=== PATIENT | male | born 1940 | race Caucasian/White ===

== ENCOUNTER 2017-02-06 09:34 | Inpatient (IN) | payer MEDICARE, OTHER ==
[~2017-02-06] VITALS: Ht 165.1 cm; Wt 66.7 kg
[~2017-02-06 09:34] MED LIST: APRESOLINE50 MG ORAL; CALCIUM + D SO1 EACH PO; DAILY MULTIPLE1 EACH ORAL; DONEPEZIL HCL10 M2 ORAL; FUROSEMIDE20 M1 ORAL; FUROSEMIDE20 MG IV; FUROSEMIDE40 MG ORAL; HUMULIN 70100 UNIT/2 SUBQ; LEVOTHYROXINE50 MCG ORAL; LEXAPRO10 MG ORAL; LOSARTAN POTASS50 MG ORAL; METFORMIN HCL850 M1 ORAL; METOPROLOL TART50 MG ORAL; ZOCOR20 M1 ORAL
[2017-02-06 12:48] VITALS: BP 150/69
[2017-02-06 16:02] VITALS: BP 155/86
--- NOTE | 2017-02-06 16:52 | History & Physical ---
History and Physical History & Physicial 74 year old male patient presents today with significant weight loss over the past 3 months. Patient care reviewed and patient felt to require admission. Patient with recent visit to the office and was doing well per but most recently he has not been eating, falling, and has had poor hygiene. Daughter notes that he has been failing to thrive and weight has decreased substantially. Per discussion with the family, they would like a GT and feel they can care for him at home. no fevers or chills noted Current Allergies/medications (reviewed today): No known allergies; reviewed Past History Past Medical History (reviewed - no changes required): Patient indicates medical history of hypertension, hyperlipidemia, type II diabetes. Other medical history includes: Obstructive Sleep Apnea, Cellulitis, CVA. Dementia. Cellulitis legs. Dementia (2009). Hypersomnia; urinary incontinence Carotid artery stenosis-bilateral, Atrial fibrillation, Pacemaker 07/2014 ER-minor stroke Surgical History (reviewed - no changes required): no previous surgeries Family History (reviewed - no changes required): Both parents and were healthy when alive. Social History (reviewed - no changes required): MARCELO is a retired person. MARCELO lives with his daughter. He lives at home in [place]. Additional social history reported by MARCELO is: was born in [place]. Risk Factors: Smoked Tobacco Use: Former smoker Cigarettes: Yes Year quit: 1991 Years Since Last Quit: Passive smoke exposure: no HIV high-risk behavior: no Caffeine use: 1 drinks per day Alcohol use: no Sun Exposure: occasionally Review of Systems General: more confused; significant weight loss Eyes: vision change; wears glasses, redness, discharge right eye; blurred vision Ear/Nose/Throat: denies ear pain or discharge, tinnitus, decreased hearing, nasal obstruction or discharge, nosebleeds, sore throat, hoarseness, dysphagia Cardiovascular: occasional dizziness and palpitations, pacemaker, abnormal ECG Respiratory: Denies cough, dyspnea, excessive sputum, hemoptysis, wheezing Gastrointestinal: constipation and incontinence Genitourinary: hesitancy; incontinence worse Musculoskeletal: arthritis, unsteady gait, uses cane had a fall Skin: denies rash, itching, dryness, suspicious lesions Neurologic: dizziness at times tremor Psychiatric: memory loss, depression;severe dementia Endocrine: blood sugars stable Hematologic/Lymphatic: denies abnormal bruising, bleeding, enlarged lymph nodes Allergic/Immunologic: denies urticaria, hay fever, persistent infections, HIV exposure Physical Exam 114/50 84 98.2 16 98% General Appearance: well nourished, well hydrated, no acute distress EOMI; NAD oropharynx moist neck supple Carotids 2+; no meningismus Respiratory Respiratory Effort: no intercostal retractions or use of accessory muscles Palpation: normal fremitus Auscultation: no rales, rhonchi, or wheezes Cardiovascular Palpation: no thrill or palpable murmurs, no displacement of PMI Auscultation: S1, S2, no murmur, rub, or gallop; iRRR Carotid arteries: pulses 2+, symmetric, no bruits Peripheral Circulation: no cyanosis, clubbing, or varicosities; 1+ pitting Edema Musculoskeletal Gait and Station: shuffling has cane confused and very unsteady nonfocal IMPRESSION failure to thrive weight loss worsening dementia PAF pacemaker syncope per history abnormal ECG PLAN IV hydration resume meds GT placement pacemaker check home with home health and GT feeds NATASHA REARDON Feb 06, 2017 16:52
[2017-02-06 17:50] LABS: BASOPHILS % (AUTO) 0.2 % (0.0-2.0); EOSINOPHILS % (AUTO) 0.1 % (0.0-3.0); LYMPHOCYTES % (AUTO) 13.1 % (20.0-45.0); MEAN CORPUSCULAR HEMOGLOBIN 30.7 PG (27.0-31.0); MEAN CORPUSCULAR HGB CONC 32.8 G/DL (32.0-36.0); MEAN CORPUSCULAR VOLUME 94 FL (80-99); MEAN PLATELET VOLUME 6.4 FL (6.5-10.1); MONOCYTES % (AUTO) 5.4 % (1.0-10.0); NEUTROPHILS % (AUTO) 81.3 % (45.0-75.0); PLATELET COUNT 412 K/UL (150-450); RED BLOOD COUNT 4.14 M/UL (4.70-6.10); RED CELL DISTRIBUTION WIDTH 13.4 % (11.6-14.8); WHITE BLOOD COUNT 10.1 K/UL (4.8-10.8)
[2017-02-06] MEDS ORDERED: Benzonatate 100mg Perles ORAL PRN (18:00)
[2017-02-06 18:08] LABS: PROTHROMBIN TIME 10.7 SEC (9.30-11.50)
[2017-02-06 18:14] LABS: ANION GAP 12 mmol/L (5-15); CALCIUM 8.7 MG/DL (8.5-10.1); CARBON DIOXIDE 29 MMOL/L (21-32); CHLORIDE 99 MMOL/L (98-107); CREATININE 1.4 MG/DL (0.55-1.30); POTASSIUM 3.6 MMOL/L (3.5-5.1); SODIUM 140 MMOL/L (136-145)
[2017-02-06] MEDS: Vitamin D 1000 IU Tab ORAL SCH (18:41)
[2017-02-06] MEDS: Metoprolol Tartrate 50mg tab ORAL SCH (20:05)
[2017-02-06] MEDS: Donepezil 10mg tab ORAL SCH (20:05)
[2017-02-06] MEDS: HydrALAZINE 50mg tab ORAL SCH (20:05)
[2017-02-06 21:00] VITALS: BP 151/59
[2017-02-06] MEDS ORDERED: NovoLOG Insulin Flexpen SUBQ SCH (21:00)
[2017-02-07] VITALS: BP 139/75
[2017-02-07 04:00] VITALS: BP 114/68
--- NOTE | 2017-02-07 05:00 | Consultation ---
DATE OF CONSULTATION: 02/06/2017 CARDIOLOGY CONSULTATION CONSULTING PHYSICIAN: Marcellus Richards M.D. REQUESTING PHYSICIAN: Dustin Mary M.D. REASON FOR CONSULTATION: Preoperative cardiovascular evaluation for G-tube placement. 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 The patient was admitted to the hospital today because of failure to thrive with weight loss and declining protein stores over the past several months resulting in recurring falls and worsening dementia. G-tube placement is planned for adequate nutrition. Family members have been involved with his care. ALLERGIES: The patient has no known drug allergies. PAST MEDICAL HISTORY: Includes paroxysmal atrial fibrillation, permanent [place] pacemaker, hypertensive heart disease, chronic diastolic and systolic congestive heart failure, type 2 diabetes mellitus, hyperlipidemia, cerebrovascular disease with dementia, sleep apnea, chronic venous insufficiency, chronic stasis ulcers, urinary incontinence, carotid stenosis bilaterally, and COPD. MEDICATIONS: Prior to admission, reviewed and reconciled. FAMILY HISTORY: Noncontributory. SOCIAL HISTORY: Former smoker. No alcohol abuse. No substance abuse. REVIEW OF SYSTEMS: Weight loss, confusion, poor vision, hard of hearing. Recent echocardiogram with mildly reduced ejection fraction, global hypokinesis, mild tricuspid and trace mitral regurgitation. No history of flow-limiting coronary disease. He has a permanent pacemaker. It was last interrogated about six months ago. He is incontinent. He has prostatic hypertrophy. He has osteoarthritis. There is a history of cerebrovascular disease, prior stroke, and dementia. His diabetes is managed with oral therapy and diet. Complications include gastroparesis and chronic kidney disease. PHYSICAL EXAMINATION: VITAL SIGNS: Blood pressure 150/69, pulse 86, respirations 21, afebrile, and room air oxygen saturations are 97%. HEENT: Mild temporal wasting. Arcus senilis. Oropharynx clear. Mucous membranes dry. NECK: Supple. Jugular venous pressure normal. Carotid upstrokes without delay. No bruits. LUNGS: Clear. Chest wall without deformity. CARDIAC: Regular rhythm and rate. Normal S1 and S2 with a 1/6 systolic murmur at apex. CHEST WALL: With pacemaker pocket site clean and dry. ABDOMEN: Soft and nontender with no masses. EXTREMITIES: Stasis dermatologic changes with no edema. NEUROLOGIC: Mild cognitive impairment. Symmetric strength. LABORATORY AND DIAGNOSTIC DATA: White count 10 and hemoglobin 12.7. Sodium 140, potassium 3.6, BUN 31, creatinine 1.4, and bicarbonate 29. EKG is pending. IMPRESSION: 1. Failure to thrive. 2. Dysphagia. 3. Permanent pacemaker. 4. Chronic diastolic and systolic congestive heart failure. 5. Hypothyroidism on replacement therapy. 6. Mild hypovolemia and dehydration with acute kidney injury. 7. Type 2 diabetes mellitus with complications. 8. Paroxysmal atrial fibrillation. PLAN: 1. Hydration with IV fluids. 2. Hold diuretics. 3. Hold metformin. 4. Check thyroid panel. 5. Hold parameters for antihypertensives. 6. No plan for anticoagulation due to fall and bleeding risks. 7. Stable for PEG once rehydrated with no significant increase in perioperative cardiovascular risks. Marcellus Richards M.D. DR: HUNG JOB#: [id number] CC:
[2017-02-07] MEDS: NovoLOG Insulin Flexpen SUBQ SCH ×4 (06:29→21:45)
[2017-02-07 06:58] LABS: ALANINE AMINOTRANSFERASE 26 U/L (12-78); ALBUMIN/GLOBULIN RATIO 0.5 (1.0-2.7); ANION GAP 12 mmol/L (5-15); ASPARTATE AMINO TRANSFERASE 22 U/L (15-37); CALCIUM 8.4 MG/DL (8.5-10.1); CARBON DIOXIDE 28 MMOL/L (21-32); CHLORIDE 100 MMOL/L (98-107); CREATININE 1.2 MG/DL (0.55-1.30); POTASSIUM 3.6 MMOL/L (3.5-5.1); SODIUM 140 MMOL/L (136-145); THYROID STIMULATING HORMONE 2.443 uiU/mL (0.358-3.740); TOTAL PROTEIN 6.5 G/DL (6.4-8.2)
--- NOTE | 2017-02-07 07:40 | General Progress Note ---
Assessment/Plan Assessment/Plan IMPRESSION failure to thrive weight loss worsening dementia PAF pacemaker syncope per history abnormal ECG PLAN IV hydration maintain meds GT placement pacemaker check home with home health and GT feeds hope to dc by am if family able to care for patient impression, plan, and exam edited and reviewed in detail care discussed with RN Subjective Allergies: Coded Allergies: No Known Allergies (Verified , 06/07/08) Subjective care noted and reviewed stable over night gi contacted Objective Last 24 Hour Vital Signs Date Time Temp Pulse Resp B/P (MAP) Pulse Ox O2 Delivery O2 Flow Rate FiO2 02/07/17 04:00 96.6 63 18 114/68 99 02/07/17 00:00 97.0 64 21 139/75 100 02/06/17 21:00 98.9 60 21 151/59 100 02/06/17 20:05 84 159/66 02/06/17 20:05 159/66 02/06/17 16:02 97.3 72 19 155/86 97 Room Air 02/06/17 12:48 97.6 86 21 150/69 97 Room Air Laboratory Tests 02/06/17 17:46: White Blood Count 10.1, Red Blood Count 4.14L, Hemoglobin 12.7L, Hematocrit 38.9L, Mean Corpuscular Volume 94, Mean Corpuscular Hemoglobin 30.7, Mean Corpuscular Hemoglobin Concent 32.8, Red Cell Distribution Width 13.4, Platelet Count 412, Mean Platelet Volume 6.4L, Neutrophils (%) (Auto) 81.3H, Lymphocytes (%) (Auto) 13.1L, Monocytes (%) (Auto) 5.4, Eosinophils (%) (Auto) 0.1, Basophils (%) (Auto) 0.2, Prothrombin Time 10.7, Prothromb Time International Ratio 1.0, Activated Partial Thromboplast Time 29, Sodium Level 140, Potassium Level 3.6, Chloride Level 99, Carbon Dioxide Level 29, Anion Gap 12, Blood Urea Nitrogen 31H, Creatinine 1.4H, Estimat Glomerular Filtration Rate , Glucose Level 165H, Calcium Level 8.7 02/07/17 05:45: Sodium Level 140, Potassium Level 3.6, Chloride Level 100, Carbon Dioxide Level 28, Anion Gap 12, Blood Urea Nitrogen 27H, Creatinine 1.2, Estimat Glomerular Filtration Rate , Glucose Level 131H, Calcium Level 8.4L, Hemoglobin A1c 7.0H, Total Bilirubin 0.6, Aspartate Amino Transf (AST/SGOT) 22, Alanine Aminotransferase (ALT/SGPT) 26, Alkaline Phosphatase 213H, Pro-B-Type Natriuretic Peptide 1024H, Total Protein 6.5, Albumin 2.1L, Globulin 4.4, Albumin/Globulin Ratio 0.5L, Thyroid Stimulating Hormone (TSH) 2.443 Height (Feet): 5 Height (Inches): 7.00 Weight (Pounds): 147 Objective WDWN NAD clear breath sounds bilaterally without rhonchi or wheeze [id number] without MRG NABS nontender no HSM no CCE nonfocal NATASHA REARDON Feb 07, 2017 07:40
[2017-02-07 07:47] VITALS: BP 136/60
[2017-02-07] MEDS: Losartan 50mg tab ORAL SCH (08:37)
[2017-02-07] MEDS: HydrALAZINE 50mg tab ORAL SCH ×2 (08:37→21:46)
[2017-02-07] MEDS: Vitamin D 1000 IU Tab ORAL SCH ×2 (08:37→17:49)
[2017-02-07] MEDS: EXELON TDERMAL SCH (08:37)
[2017-02-07] MEDS: Metoprolol Tartrate 50mg tab ORAL SCH ×2 (08:38→21:46)
[2017-02-07] MEDS ORDERED: Furosemide 40mg tab ORAL SCH (09:00)
[2017-02-07 12:04] VITALS: BP 98/41
--- NOTE | 2017-02-07 14:40 | Wound Care Consultation ---
Wound Assessment Wound Assessment #1: Wound Number: 1 Wound Present on Admission: Yes New Wound: No Status Change of Wound: No Wound Location Body Site Modif: right, lateral Wound Location Body Site: foot - extending to 5th metatarsal head Wound Type: pressure ulcer Monica Test: Does not Monica Pressure Ulcer Stage: Deep Tissue Injury - suspected Percent of Wound [place]/Red: 100 - deep red Wound Drainage Amount: None Wound Drainage Odor: None/Absent Tissue Surrounding Wound: Erythemic Wound General Appearance: Reddened Wound Assessment #2: Wound Number: 2 Wound Present on Admission: Yes New Wound: No Status Change of Wound: No Wound Location Body Site Modif: right, lower, lateral Wound Location Body Site: leg Wound Type: scab Monica Test: Does not Monica Wound Thickness: Full Thickness Wound Length: 4.0 Wound Width: 3.0 Wound Depth: utd Percent of Wound Black/Brown: 100 Wound Drainage Amount: None Wound Drainage Odor: None/Absent Tissue Surrounding Wound: Erythemic Wound General Appearance: Blackened - scab Wound Comment #1 Right lateral foot extending to right 5th toe metatarsal head suspected Deep tissue injury. #2 Right lateral lower leg scab. #3 Right ischial tuberosity and sacral hyperpigmentation brown in color. Recommendation. -Local wound care as ordered. -Turn and reposition. -Offload affected areas -Apply heel protectors, offload feet. -Keep clean and dry. -Optimize nutrition -Monitor for any further changes to skin and notify MD if any. EVELYN SANTIAGO Feb 07, 2017 14:40
[2017-02-07 16:00] VITALS: BP 113/51
[2017-02-07 20:00] VITALS: BP 122/58
[2017-02-07] MEDS: Donepezil 10mg tab ORAL SCH (21:46)
[2017-02-08] VITALS (12 sets, daily range): BP systolic 108–158; BP diastolic 52–71
--- NOTE | 2017-02-08 00:30 | Progress Note ---
DATE: 02/07/2017 CARDIOLOGY PROGRESS NOTE SUBJECTIVE: The patient has poor appetite, continues to be weak, confused. OBJECTIVE: VITAL SIGNS: Blood pressure 114/68, pulse 53, respirations 18, and afebrile. CARDIAC: Pacemaker interrogation was performed revealing normal function and adequate battery life. IMPRESSION: 1. Failure to thrive. 2. Protein-calorie malnutrition. 3. Paroxysmal atrial fibrillation. 4. Permanent pacemaker. 5. Cerebrovascular disease with dementia. 6. Acute and chronic systolic and diastolic congestive heart failure. PLAN: Decrease IV fluid rate. Await G-tube placement. Maintain remainder of anti-failure regimen without change. Marcellus Richards M.D. DR: ZENA JOB#: [id number] CC:
--- NOTE | 2017-02-08 01:15 | Consultation ---
DATE OF CONSULTATION: 02/07/2017 GASTROENTEROLOGY CONSULTATION CHIEF COMPLAINT: I was asked to see this patient by Dr. Dustin Mary for evaluation of gastrostomy tube placement. HISTORY OF PRESENT ILLNESS: The patient is an unfortunate 76-year-old man, who has had a progressive weight loss over the past three months. The patient has Alzheimer's dementia, which has been slowly getting worse. His care was discussed with the daughter, who is at bedside. She states that over the past several years, the patient has been diagnosed with Alzheimer's and over the past year or so, it has been harder and harder to feed him. He only eats when fed by one daughter and he refuses to eat if offered food from other family members including his . Still, the daughter tries hard and is able to feed the patient to a certain extent, but nonetheless, the patient has had a 20-pound weight loss over the past few months. He does not voice any complaints. There is no focal findings. The daughter wishes the patient have a gastrostomy tube for nutritional support. She understands that she can still feed the patient during daytime, but that the gastrostomy tube would maintain enteral access for supplemental nutrition to be given overnight. PAST MEDICAL HISTORY: History of hypertension, hyperlipidemia, type 2 diabetes, obstructive sleep apnea, cellulitis, stroke, dementia, and history of leg cellulitis. MEDICATIONS: See the chart list for details. FAMILY HISTORY: Noncontributory. SOCIAL HISTORY: The patient lives with his and his daughter. He was born in [facility]. He has had no recent history of smoking or drinking. REVIEW OF SYSTEMS: Otherwise negative. PHYSICAL EXAMINATION: GENERAL: An elderly man, seen in his room with the daughter at bedside. HEENT: Normocephalic and atraumatic. Sclerae anicteric. Oropharynx clear. NECK: Supple. CHEST: Clear to auscultation. CARDIOVASCULAR: Revealed a regular rate. ABDOMEN: Soft and obese with good bowel sounds. There is no organomegaly. EXTREMITIES: Revealed no edema. NEUROLOGIC: Notable for dementia. LABORATORY DATA: Noted. ASSESSMENT: This patient has organic brain syndrome, which is progressive with progressive anorexia and weight loss. There does not appear to be a focal abnormality or pathology, which could explain his weight loss, although this may be discovered at some point in the future. For the time being, however, the patient's family requests a gastrostomy tube for enteral access and feeding to help support the patient's nutritional needs so that he does not lose any further weight. Indications, risks, alternatives, and possible complications of the gastrostomy tube placement were explained to the patient's daughter and informed consent was obtained. RECOMMENDATIONS: 1. NPO after midnight. 2. Gastrostomy tube placement tomorrow. Thank you for asking me to participate in the care of this patient. Anastacia Tracey M.D. DR: AICHA JOB#: [id number] CC:
[2017-02-08] MEDS: NovoLOG Insulin Flexpen SUBQ SCH ×4 (06:30→21:52)
[2017-02-08] MEDS ORDERED: Lidocaine 1% MPF 10mg/ml 5ml ONE (08:00)
[2017-02-08] MEDS ORDERED: Propofol 200mg/20ml IV ONE (08:00)
--- NOTE | 2017-02-08 08:03 | General Progress Note ---
Assessment/Plan Assessment/Plan IMPRESSION failure to thrive weight loss worsening dementia PAF pacemaker syncope per history abnormal ECG PLAN IV hydration maintain meds GT placement today pacemaker monitoring home with home health and GT feeds hope to dc by am if family able to care for patient and GT functional impression, plan, and exam edited and reviewed in detail care discussed with RN Subjective ROS Limited/Unobtainable: Yes Allergies: Coded Allergies: No Known Allergies (Verified , 06/07/08) Subjective care noted and reviewed stable over night GT today Objective Last 24 Hour Vital Signs Date Time Temp Pulse Resp B/P (MAP) Pulse Ox O2 Delivery O2 Flow Rate FiO2 02/08/17 04:00 97.7 66 18 120/68 98 02/08/17 00:00 97.5 68 21 108/71 97 02/07/17 21:46 75 122/58 02/07/17 21:46 122/58 02/07/17 20:00 97.7 75 21 122/58 100 02/07/17 16:00 97.2 80 18 113/51 93 Room Air 02/07/17 12:04 97.7 62 20 98/41 99 Room Air 02/07/17 08:38 62 136/60 02/07/17 08:37 136/60 02/07/17 08:37 136/60 Height (Feet): 5 Height (Inches): 5.00 Weight (Pounds): 147 Objective WDWN NAD clear breath sounds bilaterally without rhonchi or wheeze [id number] without MRG NABS nontender no HSM no CCE nonfocal NATASHA REARDON Feb 08, 2017 08:03
[2017-02-08] MEDS ORDERED: NS 500ML IV ONE (08:05)
--- NOTE | 2017-02-08 08:17 | Pre-Procedure Note/Attestation ---
Pre-Procedure Note/Attestation Complete Prior to Procedure Planned Procedure: not applicable Procedure Narrative: EGD/PEG Indications for Procedure Pre-Operative Diagnosis: anorexia Attestation I attest that I discussed the nature of the procedure; its benefits; risks and complications; and alternatives (and the risks and benefits of such alternatives ), prior to the procedure, with the patient (or the patient's legal sales representative girls[employer] apparel). I attest that, if there was a reasonable possibility of needing a blood transfusion, the patient (or the patient's legal sales representative girls' apparel) was given the [facility] standardized written summary, pursuant to the Grzegorz Nunica Blood Safety Act ([place] Health and Safety Code # 1645, as amended). I attest that I re-evaluated the patient just prior to the surgery and that there has been no change in the patient's H&P, except as documented below: KULDIP TOBIN Feb 08, 2017 08:17
--- NOTE | 2017-02-08 08:21 | General Progress Note ---
Assessment/Plan Assessment/Plan Assessment - mild abnormal LFT - anorexia - OBS - DM - HTN - MARCELLE - hypercholesterolemia Recommendations - check abd ultrasound - follow LFT - PEG today Subjective Allergies: Coded Allergies: No Known Allergies (Verified , 06/07/08) Subjective No events overnight confused but responsive NPO for PEG Objective Last 24 Hour Vital Signs Date Time Temp Pulse Resp B/P (MAP) Pulse Ox O2 Delivery O2 Flow Rate FiO2 02/08/17 04:00 97.7 66 18 120/68 98 02/08/17 00:00 97.5 68 21 108/71 97 02/07/17 21:46 75 122/58 02/07/17 21:46 122/58 02/07/17 20:00 97.7 75 21 122/58 100 02/07/17 16:00 97.2 80 18 113/51 93 Room Air 02/07/17 12:04 97.7 62 20 98/41 99 Room Air 02/07/17 08:38 62 136/60 02/07/17 08:37 136/60 02/07/17 08:37 136/60 Height (Feet): 5 Height (Inches): 5.00 Weight (Pounds): 147 Objective WDWN L man NCAT supple CTA RRR soft NT no edema non focal KULDIP TOBIN Feb 08, 2017 08:21
--- NOTE | 2017-02-08 08:34 | Endoscopy Procedure Note ---
Endoscopy Procedure Note Indication for Procedure: anorexia, weight loss Procedures Performed: EGD, PEG Operative Findings/Diagnosis: normal EGD, PEG placed Specimen: none Pt Tolerated Procedure Well: Yes Estimated Blood Loss: none Anesthesiologist: Bipin Farfan Anesthesia: MAC Medication Given: fentanyl, see anesthesia record Implant(s) used?: No 50 yrs or older w/o bx or poly: Not Applicable 10yrs. F/U not recommended: Not Applicable If not recommended, why?: KULDIP TOBIN Feb 08, 2017 08:34
--- NOTE | 2017-02-08 08:36 | Brief Operative Note ---
Immediate Post Operative Note Operative Note Chief Complaint: anorexia Pre-op Diagnosis: anorexia Procedure: EGD / PEG Post-op Diagnosis: s/p PEG Surgeon: Alexy Anesthesiologist: Rui Farfan Anesthesia: MAC Specimen: none Complications: none Condition: stable Fluids: see record Estimated Blood Loss: none Drains: hemovac Implant(s) used?: No KULDIP TOBIN Feb 08, 2017 08:36
[2017-02-08] MEDS ORDERED: ceFAZolin sod 1 GM in D5W 55 ML IVPB ONE (09:00)
[2017-02-08] MEDS: EXELON TDERMAL SCH (09:31)
[2017-02-08] MEDS: Metoprolol Tartrate 50mg tab ORAL SCH ×2 (09:32→21:34)
[2017-02-08] MEDS: Vitamin D 1000 IU Tab ORAL SCH ×2 (09:32→17:09)
[2017-02-08] MEDS: HydrALAZINE 50mg tab ORAL SCH ×2 (09:32→21:35)
[2017-02-08] MEDS: Losartan 50mg tab ORAL SCH (09:33)
--- NOTE | 2017-02-08 10:14 | Anethesia Preoperative Eval ---
Anesthesia Pre-op PMH/ROS General Date of Evaluation: Feb 08, 2017 Time of Evaluation: 08:01 Anesthesiologist: piyush ASA Score: ASA 4 Mallampati Score Class I : Soft palate, uvula, fauces, pillars visible Class II: Soft palate, uvula, fauces visible Class III: Soft palate, base of uvula visible Class IV: Only hard plate visible Mallampati Classification: Class II Surgeon: carmelo Diagnosis: anorexia, dysphagia Surgical Procedure: egd/peg Anesthesia History: none Social History: smoking - nonsmoker Family History: no anesthesia problems Allergies: Coded Allergies: No Known Allergies (Verified , 06/07/08) Medications: see eMAR Past Medical History Cardiovascular: Reports: arrhythmia, other - chf, pacemaker Neurologic/Psychiatric: Reports: CVA Anesthesia Pre-op Phys. Exam Physician Exam Last Vital Signs Date Time Temp Pulse Resp B/P (MAP) Pulse Ox O2 Delivery O2 Flow Rate FiO2 02/08/17 09:33 158/64 02/08/17 09:32 67 02/08/17 09:10 98.0 15 99 Nasal Cannula 3.0 Constitutional: NAD Neurologic: CN 2-12 intact Cardiovascular: RRR Respiratory: CTA Gastrointestinal: S/NT/ND Airway Exam Mallampati Score: Class II MO: full Neck: decreased rom to lateral rotation TMD: 2fb ROM: limited Teeth: missing Dentures: upper, lower Anesthesia Pre-op A/P Labs Labs Test 02/06/17 17:46 02/07/17 05:45 White Blood Count 10.1 K/UL (4.8-10.8) Red Blood Count 4.14 M/UL (4.70-6.10) Hemoglobin 12.7 G/DL (14.2-18.0) Hematocrit 38.9 % (42.0-52.0) Mean Corpuscular Volume 94 FL (80-99) Mean Corpuscular Hemoglobin 30.7 PG (27.0-31.0) Mean Corpuscular Hemoglobin Concent 32.8 G/DL (32.0-36.0) Red Cell Distribution Width 13.4 % (11.6-14.8) Platelet Count 412 K/UL (150-450) Mean Platelet Volume 6.4 FL (6.5-10.1) Neutrophils (%) (Auto) 81.3 % (45.0-75.0) Lymphocytes (%) (Auto) 13.1 % (20.0-45.0) Monocytes (%) (Auto) 5.4 % (1.0-10.0) Eosinophils (%) (Auto) 0.1 % (0.0-3.0) Basophils (%) (Auto) 0.2 % (0.0-2.0) Prothrombin Time 10.7 SEC (9.30-11.50) Prothromb Time International Ratio 1.0 (0.9-1.1) Activated Partial Thromboplast Time 29 SEC (23-33) Sodium Level 140 MMOL/L (136-145) 140 MMOL/L (136-145) Potassium Level 3.6 MMOL/L (3.5-5.1) 3.6 MMOL/L (3.5-5.1) Chloride Level 99 MMOL/L (98-107) 100 MMOL/L (98-107) Carbon Dioxide Level 29 MMOL/L (21-32) 28 MMOL/L (21-32) Anion Gap 12 mmol/L (5-15) 12 mmol/L (5-15) Blood Urea Nitrogen 31 mg/dL (7-18) 27 mg/dL (7-18) Creatinine 1.4 MG/DL (0.55-1.30) 1.2 MG/DL (0.55-1.30) Estimat Glomerular Filtration Rate mL/min (>60) mL/min (>60) Glucose Level 165 MG/DL (74-106) 131 MG/DL (74-106) Calcium Level 8.7 MG/DL (8.5-10.1) 8.4 MG/DL (8.5-10.1) Hemoglobin A1c 7.0 % (4.3-6.0) Total Bilirubin 0.6 MG/DL (0.2-1.0) Aspartate Amino Transf (AST/SGOT) 22 U/L (15-37) Alanine Aminotransferase (ALT/SGPT) 26 U/L (12-78) Alkaline Phosphatase 213 U/L (46-116) Pro-B-Type Natriuretic Peptide 1024 pg/mL (0-125) Total Protein 6.5 G/DL (6.4-8.2) Albumin 2.1 G/DL (3.4-5.0) Globulin 4.4 g/dL Albumin/Globulin Ratio 0.5 (1.0-2.7) Thyroid Stimulating Hormone (TSH) 2.443 uiU/mL (0.358-3.740) Risk Assessment & Plan Assessment: asa4 Plan: mac Status Change Before Surgery: No Pre-Antibiotics Drug: ancef 1 gm Given Within 1 Hr of Incision: Yes Time Given: 08:25 EV GILL Feb 08, 2017 10:14
--- NOTE | 2017-02-08 10:17 | Immediate Post-Op Evaluation ---
Immediate Post-Op Evalulation Immediate Post-Op Evalulation Procedure: egd/peg Date of Evaluation: Feb 08, 2017 Time of Evaluation: 08:51 IV Fluids: 50ml 0.9ns Blood Products: none Estimated Blood Loss: negligible Blood Pressure Systolic: 115 Blood Pressure Diastolic: 52 Pulse Rate: 67 Respiratory Rate: 18 O2 Sat by Pulse Oximetry: 99 Temperature (Fahrenheit): 97.9 Pain Score (1-10): 0 Nausea: No Vomiting: No Complications none Patient Status: reacts, patent Hydration Status: adequate Drug: ancef 1 gm Time Given: 08:25 EV GILL Feb 08, 2017 10:17
--- NOTE | 2017-02-08 10:20 | 48 Hour Post Anesthesia Eval ---
Post Anesthesia Evaluation Procedure: egd/peg Date of Evaluation: Feb 08, 2017 Time of Evaluation: 08:53 Blood Pressure Systolic: 111 0: 55 Pulse Rate: 66 Respiratory Rate: 18 Temperature (Fahrenheit): 97.9 O2 Sat by Pulse Oximetry: 99 Airway: patent Nausea: No Vomiting: No Pain Intensity: 0 Hydration Status: adequate Cardiopulmonary Status: stable Mental Status/LOC: patient returned to baseline Post-Anesthesia Complications: none Follow-up care needed: N/A EV GILL Feb 08, 2017 10:20
[2017-02-08] MEDS ORDERED: DiphenhydrAMINE 50mg/ml Inj IVP PRN (10:30)
[2017-02-08] MEDS ORDERED: Midazolam 2mg/2ml Inj IVP PRN (10:30)
[2017-02-08] MEDS ORDERED: fentaNYL 100 mcg/2 mL IV PRN (10:30)
[2017-02-08] MEDS ORDERED: Atropine Inj 1mg/10ml Syr IV PRN (10:30)
[2017-02-08] MEDS ORDERED: NS 500ML ONE ×2 (15:49→16:06)
--- NOTE | 2017-02-08 18:00 | Operative Note - Dictated ---
DATE OF OPERATION: 02/08/2017 PROCEDURE: Upper capsule endoscopy with gastrostomy tube placement. SURGEON: Anastacia Tracey M.D. ANESTHESIA: Please see the separate anesthesiologist notes for details. PRE-ENDOSCOPIC DIAGNOSIS: Anorexia and weight loss. POST-ENDOSCOPIC DIAGNOSIS: Status post gastrostomy tube placement. PROCEDURE: The procedure, its risks, indications, alternatives, and possible complications including, but not limited to, bleeding, infection, perforation, , and anesthesia complications were explained to the patient's daughter and informed consent was obtained. The patient was then sedated in the supine position. A diagnostic upper endoscope was introduced through the oropharynx and advanced to the duodenum without difficulty. The endoscope was then gradually withdrawn. The mucosa examined carefully. Examination of the upper gastric mucosa did not reveal any abnormalities. A location for placement of the gastrostomy tube was identified by palpation and transillumination techniques. The outside skin was sterilely prepared, anesthetized, and incised and the trocar needle was used to place the gastrostomy tube using the standard pull technique. The outside skin was dressed appropriately and the patient was sent to recovery in good condition. The markings of the gastrostomy was 3 centimeters. RECOMMENDATIONS: 1. Observe overnight. 2. Begin tube feedings tomorrow. Anastacia Tracey M.D. DR: JACQUELINE JOB#: [id number] CC:
--- NOTE | 2017-02-08 20:45 | Progress Note ---
DATE: 02/08/2017 CARDIOLOGY PROGRESS NOTE SUBJECTIVE: The patient is status post G-tube placement today without complications. Endoscopy was unremarkable. OBJECTIVE: VITAL SIGNS: Blood pressure 150/57, heart rate 60, respiratory rate 20. NECK: Supple. LUNGS: Clear. CARDIAC: Regular. Normal S1 and S2. ABDOMEN: Soft. EXTREMITIES: Trace edema. IMPRESSION: 1. Failure to thrive. 2. Status post gastrostomy tube. 3. Acute on chronic diastolic congestive heart failure, clinically compensated. 4. Severe protein-calorie malnutrition. 5. Type 2 diabetes mellitus. 6. Hypertensive heart disease with slight blood pressure elevation postprocedure. 7. Permanent pacemaker. 8. Paroxysmal atrial fibrillation. PLAN: IV fluids pending initiation of G-tube feedings. Titrate antihypertensive regimen. Monitor volume status and cardiorenal parameters, presently no need for diuresis. Marcellus Richards M.D. DR: Philip JOB#: [id number] CC:
[2017-02-08] MEDS: Donepezil 10mg tab ORAL SCH (21:38)
[2017-02-09 01:00] VITALS: BP 138/56
[2017-02-09 04:00] VITALS: BP 158/75
[2017-02-09] MEDS: NovoLOG Insulin Flexpen SUBQ SCH ×4 (05:59→21:00)
[2017-02-09 07:19] LABS: BASOPHILS % (AUTO) 0.3 % (0.0-2.0); EOSINOPHILS % (AUTO) 1.5 % (0.0-3.0); LYMPHOCYTES % (AUTO) 18.1 % (20.0-45.0); MEAN CORPUSCULAR HEMOGLOBIN 31.3 PG (27.0-31.0); MEAN CORPUSCULAR VOLUME 95 FL (80-99); MEAN PLATELET VOLUME 6.1 FL (6.5-10.1); MONOCYTES % (AUTO) 7.3 % (1.0-10.0); NEUTROPHILS % (AUTO) 72.8 % (45.0-75.0); PLATELET COUNT 399 K/UL (150-450); RED BLOOD COUNT 3.81 M/UL (4.70-6.10); RED CELL DISTRIBUTION WIDTH 13.4 % (11.6-14.8); WHITE BLOOD COUNT 9.1 K/UL (4.8-10.8)
[2017-02-09 07:56] LABS: ALANINE AMINOTRANSFERASE 20 U/L (12-78); ALBUMIN/GLOBULIN RATIO 0.5 (1.0-2.7); ANION GAP 9 mmol/L (5-15); ASPARTATE AMINO TRANSFERASE 19 U/L (15-37); CALCIUM 8.2 MG/DL (8.5-10.1); CARBON DIOXIDE 27 MMOL/L (21-32); CHLORIDE 106 MMOL/L (98-107); CREATININE 0.9 MG/DL (0.55-1.30); MAGNESIUM 1.5 MG/DL (1.8-2.4); POTASSIUM 3.6 MMOL/L (3.5-5.1); SODIUM 142 MMOL/L (136-145); TOTAL PROTEIN 6.1 G/DL (6.4-8.2)
[2017-02-09 08:00] VITALS: BP 148/68
--- NOTE | 2017-02-09 08:40 | Diagnostic Imaging Report ---
Indication: Fall Technique: Continuous helical CT scanning of the head was performed utilizing automated exposure control without intravenous contrast material. Axial and coronal reconstructions were obtained. Comparison: 09/16/15 CT dose: Total DLP 1407 mGycm; CTDI vol 70.5 mGy Findings: There is no acute intracranial hemorrhage. No mass effect or midline shift. There is unchanged encephalomalacia in the right occipital lobe . There is unchanged low attenuation in the region of the posterior limb of the right internal capsule. No new focus of hypoattenuation is appreciated. The ventricles, cisterns and sulci are prominent consistent with atrophy. Periventricular hypoattenuation is seen, a nonspecific finding. There is no depressed calvarial fracture. No focal soft tissue swelling/scalp hematoma is identified. The mastoid air cells are clear. Some mild mucosal thickening is noted within some ethmoid air cells. Impression: No evidence of acute intracranial hemorrhage, mass effect or cortical edema. No skull fracture. Atrophy and sequela of chronic microvascular ischemia. 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 The CT scanner at [facility] is accredited by the [employer] and the scans are performed using protocols designed to limit radiation exposure to as low as reasonably achievable to attain images of sufficient resolution adequate for diagnostic evaluation.
--- NOTE | 2017-02-09 08:42 | General Progress Note ---
Assessment/Plan Assessment/Plan IMPRESSION failure to thrive weight loss worsening dementia PAF pacemaker syncope per history abnormal ECG s/p fall PLAN head CT neuro checks cxr GT placement today pacemaker monitoring short term SNF care hope to dc today impression, plan, and exam edited and reviewed in detail care discussed with RN Subjective ROS Limited/Unobtainable: Yes Allergies: Coded Allergies: No Known Allergies (Verified , 06/07/08) Subjective care noted and reviewed had a fall neuro no change no injuries Objective Last 24 Hour Vital Signs Date Time Temp Pulse Resp B/P (MAP) Pulse Ox O2 Delivery O2 Flow Rate FiO2 02/09/17 04:00 97.9 68 18 158/75 97 02/09/17 01:00 97.9 69 18 138/56 97 02/08/17 23:40 97.9 69 18 138/56 97 02/08/17 21:35 145/65 02/08/17 21:34 60 145/65 02/08/17 19:59 97.7 60 18 145/65 99 02/08/17 15:22 97.6 60 20 150/57 99 Room Air 02/08/17 12:00 97.7 67 20 149/63 98 02/08/17 10:20 66 18 99 02/08/17 10:17 67 18 99 02/08/17 09:33 158/64 02/08/17 09:32 67 158/64 02/08/17 09:32 158/64 02/08/17 09:10 98.0 63 15 143/63 99 Nasal Cannula 3.0 02/08/17 09:04 62 17 139/65 99 Nasal Cannula 3.0 02/08/17 08:49 65 11 150/62 99 Nasal Cannula 3.0 02/08/17 08:44 65 16 122/54 99 Nasal Cannula 3.0 Laboratory Tests 02/09/17 06:15: White Blood Count 9.1, Red Blood Count 3.81L, Hemoglobin 11.9L, Hematocrit 36.1L , Mean Corpuscular Volume 95, Mean Corpuscular Hemoglobin 31.3H, Mean Corpuscular Hemoglobin Concent 33.0, Red Cell Distribution Width 13.4, Platelet Count 399, Mean Platelet Volume 6.1L, Neutrophils (%) (Auto) 72.8, Lymphocytes ( %) (Auto) 18.1L, Monocytes (%) (Auto) 7.3, Eosinophils (%) (Auto) 1.5, Basophils (%) (Auto) 0.3, Sodium Level 142, Potassium Level 3.6, Chloride Level 106, Carbon Dioxide Level 27, Anion Gap 9, Blood Urea Nitrogen 11, Creatinine 0.9, Estimat Glomerular Filtration Rate , Glucose Level 97, Calcium Level 8.2L, Magnesium Level 1.5L, Total Bilirubin 0.6, Aspartate Amino Transf (AST/SGOT) 19 , Alanine Aminotransferase (ALT/SGPT) 20, Alkaline Phosphatase 184H, Pro-B-Type Natriuretic Peptide 2564H, Total Protein 6.1L, Albumin 1.9L, Globulin 4.2, Albumin/Globulin Ratio 0.5L Height (Feet): 5 Height (Inches): 5.00 Weight (Pounds): 147 Objective WDWN NAD clear breath sounds bilaterally without rhonchi or wheeze [id number] without MRG NABS nontender no HSM no CCE nonfocal NATASHA REARDON Feb 09, 2017 08:42
[2017-02-09] MEDS: EXELON TDERMAL SCH (09:28)
[2017-02-09] MEDS: HydrALAZINE 50mg tab ORAL SCH ×2 (09:29→22:26)
[2017-02-09] MEDS: Metoprolol Tartrate 50mg tab ORAL SCH ×2 (09:29→22:26)
[2017-02-09] MEDS: Vitamin D 1000 IU Tab ORAL SCH ×2 (09:29→18:23)
[2017-02-09] MEDS: Losartan 50mg tab ORAL SCH (09:29)
--- NOTE | 2017-02-09 15:10 | General Progress Note ---
Assessment/Plan Assessment/Plan Assessment - mild abnormal LFT - anorexia - OBS - DM - HTN - MARCELLE - hypercholesterolemia Recommendations - check abd ultrasound - follow LFT - Begin TF today - d/c planning per PMD Subjective Allergies: Coded Allergies: No Known Allergies (Verified , 06/07/08) Subjective No events overnight confused but responsive s/p PEG Objective Last 24 Hour Vital Signs Date Time Temp Pulse Resp B/P (MAP) Pulse Ox O2 Delivery O2 Flow Rate FiO2 02/09/17 09:29 58 148/68 02/09/17 09:29 148/68 02/09/17 09:29 148/68 02/09/17 08:00 96.8 58 20 148/68 99 02/09/17 04:00 97.9 68 18 158/75 97 02/09/17 01:00 97.9 69 18 138/56 97 02/08/17 23:40 97.9 69 18 138/56 97 02/08/17 21:35 145/65 02/08/17 21:34 60 145/65 02/08/17 19:59 97.7 60 18 145/65 99 02/08/17 15:22 97.6 60 20 150/57 99 Room Air Laboratory Tests 02/09/17 06:15: White Blood Count 9.1, Red Blood Count 3.81L, Hemoglobin 11.9L, Hematocrit 36.1L , Mean Corpuscular Volume 95, Mean Corpuscular Hemoglobin 31.3H, Mean Corpuscular Hemoglobin Concent 33.0, Red Cell Distribution Width 13.4, Platelet Count 399, Mean Platelet Volume 6.1L, Neutrophils (%) (Auto) 72.8, Lymphocytes ( %) (Auto) 18.1L, Monocytes (%) (Auto) 7.3, Eosinophils (%) (Auto) 1.5, Basophils (%) (Auto) 0.3, Sodium Level 142, Potassium Level 3.6, Chloride Level 106, Carbon Dioxide Level 27, Anion Gap 9, Blood Urea Nitrogen 11, Creatinine 0.9, Estimat Glomerular Filtration Rate , Glucose Level 97, Calcium Level 8.2L, Magnesium Level 1.5L, Total Bilirubin 0.6, Aspartate Amino Transf (AST/SGOT) 19 , Alanine Aminotransferase (ALT/SGPT) 20, Alkaline Phosphatase 184H, Pro-B-Type Natriuretic Peptide 2564H, Total Protein 6.1L, Albumin 1.9L, Globulin 4.2, Albumin/Globulin Ratio 0.5L Height (Feet): 5 Height (Inches): 5.00 Weight (Pounds): 147 Objective WDWN L man NCAT supple CTA RRR soft NT no edema non focal KULDIP TOBIN Feb 09, 2017 15:10
[2017-02-09 16:00] VITALS: BP 134/49
--- NOTE | 2017-02-09 17:51 | Diagnostic Imaging Report ---
Indication: Abnormal labs. Technique: Multiple increased and color Doppler evaluation of the abdomen Comparison: Available Findings: Limited evaluation the pancreas due to bowel gas. Liver is normal in size. Hepatic contour is smooth. There is diffusely increased hepatic echogenicity. There is suggestion of a hypoechoic mass measuring up to 4 cm in the right lobe. The portal vein is patent with normal direction of flow. There is no cholelithiasis. There is no intrahepatic or extrahepatic biliary ductal dilatation. Sonographic Ruiz sign was reported as negative. The kidneys are symmetric in size and demonstrate normal parenchymal thickness and echogenicity. Probable subcentimeter cyst in the lower pole the right kidney. There is no evidence of hydronephrosis bilaterally. Limited evaluation of the aorta given overlying bowel gas. Spleen is normal in size. There is no ascites. Impression: Increased hepatic echogenicity most commonly reflective of diffuse fatty steatosis. Fetus a hypoechoic mass in the right lobe. Further evaluation with dynamic contrast-enhanced CT or MRI of the abdomen recommended. No suggest acute cholecystitis. Renal cysts.
--- NOTE | 2017-02-09 18:05 | Diagnostic Imaging Report ---
Indication: Pain status post fall Technique: XRAY HIP 2V RIGHT Comparison: None Findings: No acute fracture or dislocation. Degenerative change of the right hip is Whit by small osteophyte formation. No radiopaque foreign body seen. Impression: No acute fracture or dislocation.
[2017-02-09 20:00] VITALS: BP 135/60
--- NOTE | 2017-02-09 22:00 | Progress Note ---
DATE: 02/09/2017 CARDIOLOGY PROGRESS NOTE SUBJECTIVE: The patient is status post G-tube yesterday. Feedings starting today without any complications thus far. No cough or congestion. The patient was confused and had a CAT scan of the brain revealing old infarct. No acute process. The patient had a pacemaker interrogation that revealed adequate battery life and appropriate function with no significant arrhythmias other than rare atrial ectopy. OBJECTIVE: VITAL SIGNS: Blood pressure 148/68, pulse 58, respirations 20, afebrile. LUNGS: Few rhonchi. ABDOMEN: Slightly distended, but soft. G-tube intact. CARDIAC: Regular rhythm and rate. Normal S1 and S2 with a 1/6 apical murmur. Pacemaker pocket site clean and dry. EXTREMITIES: With trace edema. LABORATORY DATA: White count 9.1 and hemoglobin 11.9. Potassium 3.6 and magnesium 1.5. Albumin 1.9. IMPRESSION: 1. Status post gastrostomy tube. 2. Permanent pacemaker. 3. Paroxysmal atrial fibrillation. 4. Hypertensive cardiomyopathy. 5. Chronic systolic and diastolic congestive heart failure. 6. Hypomagnesemia. 7. Hypokalemia. PLAN: 1. Replace electrolytes. 2. Continue feedings by G-tube. 3. Maintain current cardiovascular regimen. 4. Outpatient pacemaker interrogation will be scheduled on a regular basis. Marcellus Richards M.D. DR: Patricia JOB#: [id number] CC:
[2017-02-09] MEDS: Donepezil 10mg tab ORAL SCH (22:26)
[2017-02-10] VITALS: BP 148/66
[2017-02-10 04:00] VITALS: BP 152/68
[2017-02-10] MEDS: NovoLOG Insulin Flexpen SUBQ SCH ×3 (06:27→16:30)
--- NOTE | 2017-02-10 07:41 | General Progress Note ---
Assessment/Plan Assessment/Plan Assessment - mild abnormal LFT - anorexia - OBS - DM - HTN - MARCELLE - hypercholesterolemia Recommendations - check abd ultrasound - follow LFT - TF - d/c planning per PMD Subjective ROS Limited/Unobtainable: No Allergies: Coded Allergies: No Known Allergies (Verified , 06/07/08) Objective Last 24 Hour Vital Signs Date Time Temp Pulse Resp B/P (MAP) Pulse Ox O2 Delivery O2 Flow Rate FiO2 02/10/17 04:00 Room Air 02/10/17 04:00 97.3 73 20 152/68 95 Room Air 02/10/17 00:00 Room Air 02/10/17 00:00 96.8 68 19 148/66 97 Room Air 02/09/17 22:26 72 135/60 02/09/17 22:26 135/60 02/09/17 20:00 97.7 72 20 135/60 98 Room Air 02/09/17 20:00 Room Air 02/09/17 16:00 97.7 72 18 134/49 02/09/17 09:29 58 148/68 02/09/17 09:29 148/68 02/09/17 09:29 148/68 02/09/17 08:00 96.8 58 20 148/68 99 Height (Feet): 5 Height (Inches): 5.00 Weight (Pounds): 147 General Appearance: no apparent distress EENT: normal ENT inspection Neck: supple Cardiovascular: normal rate Respiratory/Chest: decreased breath sounds Abdomen: normal bowel sounds, non tender, soft Extremities: non-tender COLLEEN MELCHOR Feb 10, 2017 07:41
[2017-02-10 08:05] VITALS: BP 131/66
[2017-02-10] MEDS: Metoprolol Tartrate 50mg tab ORAL SCH (09:53)
[2017-02-10] MEDS: Losartan 50mg tab ORAL SCH (09:53)
[2017-02-10] MEDS: Vitamin D 1000 IU Tab ORAL SCH (09:53)
[2017-02-10] MEDS: EXELON TDERMAL SCH (09:54)
--- NOTE | 2017-02-10 09:56 | General Progress Note ---
Assessment/Plan Assessment/Plan IMPRESSION failure to thrive weight loss worsening dementia PAF pacemaker syncope per history abnormal ECG s/p fall fatty liver reduced UO abnormal liver findings PLAN abdomen CT monitor UO adjust feeds with poor po intake pacemaker monitoring short term SNF care hope to dc later today impression, plan, and exam edited and reviewed in detail care discussed with RN Subjective Allergies: Coded Allergies: No Known Allergies (Verified , 06/07/08) Subjective care noted and reviewed had a fall negative fx and ct neuro no change no urine output abnormal US noted Objective Last 24 Hour Vital Signs Date Time Temp Pulse Resp B/P (MAP) Pulse Ox O2 Delivery O2 Flow Rate FiO2 02/10/17 09:53 61 131/66 02/10/17 09:53 131/66 02/10/17 08:05 97.7 61 20 131/66 96 Room Air 02/10/17 04:00 Room Air 02/10/17 04:00 97.3 73 20 152/68 95 Room Air 02/10/17 00:00 Room Air 02/10/17 00:00 96.8 68 19 148/66 97 Room Air 02/09/17 22:26 72 135/60 02/09/17 22:26 135/60 02/09/17 20:00 97.7 72 20 135/60 98 Room Air 02/09/17 20:00 Room Air 02/09/17 16:00 97.7 72 18 134/49 Height (Feet): 5 Height (Inches): 5.00 Weight (Pounds): 147 Objective WDWN NAD clear breath sounds bilaterally without rhonchi or wheeze [id number] without MRG NABS nontender no HSM no CCE nonfocal NATASHA REARDON Feb 10, 2017 09:56
[2017-02-10] MEDS: HydrALAZINE 50mg tab ORAL SCH (10:05)
[2017-02-10 11:55] VITALS: BP 153/67
[2017-02-10] MEDS ORDERED: ATORVASTATIN CA10 MG ORAL (13:20)
[2017-02-10] MEDS ORDERED: VITAMIN D1000 UNI1 ORAL (13:21)
[2017-02-10] MEDS ORDERED: HYDRALAZINE HCL50 MG ORAL (13:22)
[2017-02-10] MEDS ORDERED: NOVOLOG100 UNIT/3 SUBQ (13:23)
[2017-02-10] MEDS ORDERED: METOPROLOL TART50 M1 ORAL (13:24)
[2017-02-10] MEDS ORDERED: LEVOTHYROXINE50 MCG ORAL (13:24)
[2017-02-10] MEDS ORDERED: TAMSULOSIN HCL0.4 MG GT (13:26)
[2017-02-10] MEDS ORDERED: EXELON4.6 MG TD (13:26)
[2017-02-10 16:00] VITALS: BP 148/67
--- NOTE | 2017-02-10 20:45 | Progress Note ---
DATE: 02/10/2017 CARDIOLOGY PROGRESS NOTE SUBJECTIVE: The patient has had increased residuals from his feeding. He has some abdominal pain. Elevated liver function tests were noted. OBJECTIVE: VITAL SIGNS: Blood pressure 135/60 to 152/68, heart rate 73, respiratory rate 20, and afebrile. NECK: Supple. LUNGS: Clear. CARDIAC: Regular rhythm and rate. Normal S1 and S2. A 1/6 systolic apical murmur. ABDOMEN: Soft and slightly distended. G-tube intact. EXTREMITIES: No edema. LABORATORY DATA: Labs from yesterday were reviewed. IV magnesium was administered. IMPRESSION: 1. Failure to thrive. 2. Protein-calorie malnutrition. 3. Dysphagia, now status post gastrostomy tube. 4. Gastroparesis. 5. Diabetes mellitus. 6. Permanent pacemaker. 7. Paroxysmal atrial fibrillation. 8. Hypomagnesemia. 9. Hypertensive heart disease. PLAN: 1. Maintain current cardiovascular regimen. 2. IV magnesium. 3. Follow up imaging studies of the abdomen. 4. Insulin coverage per sliding scale. Marcellus Richards M.D. DR: Patricia JOB#: [id number] CC:
[2017-02-10] MEDS ORDERED: Tamsulosin 0.4mg cap ORAL SCH (21:00)
--- NOTE | 2017-02-11 09:20 | Diagnostic Imaging Report ---
Indication: ABD PAIN Technique: CT scan of the abdomen and pelvis was performed from the diaphragms to the symphysis pubis with oral contrast material. No IV contrast was administered per specific request of the ordering physician. 5 mm sections were generated. Axial, coronal, and sagittal images are presented. Dose: Total Dose Length Product - DLP [address] Dose Index - CTDIvol(s) 14.36 mGy. Automated exposure control was utilized for dose reduction. Comparison: None Findings: There are bilateral pleural effusions. Volume loss is noted in both lung bases. Pacemaker wires are noted in the heart. The study is degraded by motion. There is a large low-density lesion in the right lobe of the liver measuring 5.8 cm. This appears solid. The spleen is normal. There is a gastrostomy tube in the stomach. A small hiatal hernia is present. The pancreas is unremarkable. Adrenal glands are normal. There is bilateral perinephric stranding. There is a 1 cm lesion projecting from the cortex of the lower pole the left kidney. This is higher in density than renal parenchyma. This is nonspecific. The kidneys are otherwise unremarkable. The aorta is calcified. Retroperitoneum is free of adenopathy. An umbilical hernia is noted containing fat. The bladder, seminal vesicles are unremarkable. Prostate appears enlarged. The bowel is normal. The bones are osteopenic. There is destruction in T11 and T12 with irregularity of the endplates. Compression fracture T12 is noted. There is abnormal soft tissue around the T11-T12 disc. Cirrhosis is also noted in both vertebral bodies. Impression: Mass in the right lobe of the liver. This appears solid. Possibly to include primary liver neoplasm or metastatic disease. The origins are also possible. Contrast-enhanced CT may be helpful. Nonspecific perinephric stranding. Small high density lesion projects from the left kidney, likely a high density cyst though solid lesions not excluded. Compression fracture of T12 and inferior endplate fracture of T11 with irregularity of endplates. Abnormal soft tissue is seen around the T11-T12 disc. Chronic discitis and osteomyelitis should be strongly considered. MRI would be helpful for better evaluation. Osteopenia. Prostatomegaly. The CT scanner at [facility] is accredited by the [employer] and the scans are performed using protocols designed to limit radiation exposure to as low as reasonably achievable to attain images of sufficient resolution adequate for diagnostic evaluation.
--- NOTE | 2017-02-13 10:44 | Discharge Summary ---
Discharge Summary Hospital Course Date of Admission Feb 06, 2017 at 11:53 Date of Discharge Feb 10, 2017 at 17:51 Admitting Diagnosis HPI Edison Cummings is a 76 year old male who was admitted on Feb 06, 2017 at 11:53 for Gt Placement, Dementia, Malnutrition Hospital Course dc summary #[id number] Discharge Medications Continued Medications: Atorvastatin Calcium* (Lipitor*) 10 Mg Tablet 10 MG ORAL BEDTIME, TAB Cholecalciferol (Vitamin D3)* (Vitamin D*) 1,000 Unit Tablet 1000 UNITS ORAL TWICE A DAY, #60 TAB 0 Refills Donepezil Hcl* (Donepezil Hcl*) 10 Mg Tab.rapdis 10 MG ORAL BEDTIME for For Anxiety, TAB Escitalopram Oxalate* (Lexapro*) 10 Mg Tablet 10 MG ORAL DAILY, TAB Hydralazine Hcl* (Hydralazine Hcl*) 50 Mg Tablet 50 MG ORAL Q12HR, TAB Insulin Aspart* (Novolog*) 100 Unit/1 Ml Insuln.pen 0 SUBQ AC+HS PRN for Per rx protocol, #1 EA 0 Refills Levothyroxine Sodium* (Levothyroxine Sodium*) 50 Mcg Tablet 50 MCG ORAL DAILY, TAB Take in the morning on an empty stomach, at least 30 minutes before food. Losartan Potassium* (Losartan Potassium*) 50 Mg Tablet 100 MG ORAL DAILY, TAB Metoprolol Tartrate* (Metoprolol Tartrate*) 50 Mg Tablet 50 MG ORAL BID, TAB 0 Refills Multivitamin (Daily Multiple Vitamin) 1 Each Tablet 1 TAB ORAL DAILY, #30 TAB 0 Refills Rivastigmine Tartrate (Exelon) 1 Each Patch.td24 4.6 MG TD DAILY, PATCH Tamsulosin Hcl (Tamsulosin Hcl*) 0.4 Mg Cap.er.24h 0.4 MG GT BEDTIME, CAP Discharge Condition Upon Discharge: stable Discharge Disposition Patient was discharged to SNF/Subacute Facility(03) Discharge Diagnoses: Discharge Instructions Discharge Instructions Special Instructions I have been assigned to complete a D/C Summary on this account. I was not involved in the patient management Rachel Bradshaw NP (Vanchtein) Feb 13, 2017 10:44
--- NOTE | 2017-02-13 21:01 | Discharge Summary 2 SIG ---
DATE OF ADMISSION: 02/06/2017 DATE OF DISCHARGE: 02/10/2017 REASON FOR ADMISSION: 76 years old male with history of diabetes, dementia, osteoarthritis, recurrent falls, pacemaker, stroke, and hypertension, presented with significant weight loss for the past three months. The patient apparently had recurrent falls and poor appetite as per . Family wanted a G-tube placement. The patient was sent to the hospital for further workup. Initially presented with acute kidney injury with BUN - 31 and creatinine-1.4. The patient was admitted for further management with diagnosis of failure to thrive, weight loss, worsening dementia, pacemaker, and paroxysmal atrial fibrillation. HOSPITAL COURSE: The patient was admitted. Cardiology and GI consults were requested. Welfare Manager seen and evaluated the patient. The patient was started on IV fluid. Metformin and diuretics were placed on hold due to acute kidney injury. The patient was initially on telemetry floor. No anticoagulation as per Cardiology due to recurrent falls and risk for bleeding. Pacemaker interrogation to be arranged as outpatient, as per type casting machine operator. The patient with chronic diastolic and systolic congestive heart failure, but there was no need for diuresis at that time. Welfare Manager cleared the patient for GI procedure. The patient subsequently undergone upper capsule endoscopy with gastrostomy tube placement on 02/08/2017. Tube feeding started next day, initially high residual, afterwards able to tolerate tube feeding. Per Cardiology, cardiorenal parameters and volume status were clsoely monitored. He recommended to maintain current cardiovascular regimen. Blood pressure was stable with current regimen, Statin was continued. TSH was within normal limits. Current dose of levothyroxine was continued. With IV hydration, renal parameters down to normal. BUN -11, creatinine- 0.9 prior to discharge. Hemoglobin A1c -7.0, at goal. Assortment Planner seen and evaluated the patient for protein-calorie malnutrition. The patient was at high nutritional risk. Tube feeding type started as recommended by dietitian based on his nutritional needs, and increased to goal rate. Electrolytes were closely monitored and replaced as needed. CT head revealed no acute intracranial pathology, but showed chronic age-related changes. Venous duplex bilateral lower extremities was negative. Right hip x-ray was checked due to the fall and revealed no evidence of acute fracture or dislocation. Due to the elevated alkaline phosphatase, abdominal ultrasound was done, which revealed increased hepatic echogenicity likely suggestive of diffuse fatty steatosis, hypoechoic mass noted on the right lower lobe, no acute cholecystitis noted. Subsequently, the patient undergone abdominal and pelvis CT, which revealed mass in the right lobe of the liver appeared to be solid. Compression fracture of T12 noted, osteopenia, and prostatomegaly. The patient was able to tolerate tube feeding. Renal parameters and electrolytes stable. The patient was stable for discharge to half-way facility. The patient' s daughter agreed with the plan. The patient will need as outpatient to be scheduled for pacemaker interrogation as well as the CT of the abdomen with contrast to better delineate the right lobe mass seen on the CT of the abdomen without contrast. FINAL DIAGNOSES: 1. Weight loss. 2. Dysphagia. 3. Status post upper capsule endoscopy with gastrostomy tube placement. 4. Chronic diastolic and systolic congestive heart failure. 5. Permanent pacemaker. 6. Hypothyroidism. 7. Fatty liver disease. 8. Hypertensive cardiomyopathy. 9. Dehydration with mild hypovolemia. 10. Acute kidney injury, secondary to dehydration, resolved. 11. Diabetes mellitus type 2. 12. Hypertensive heart disease. 13. Paroxysmal atrial fibrillation. 14. Severe protein-calorie malnutrition. 15. Hypomagnesemia. DISCHARGE MEDICATIONS: See medication reconciliation list. DISCHARGE INSTRUCTIONS: The patient was discharged to half-way facility. FOLLOWUP: Follow up with the medical doctor at the facility. The patient will need as outpatient to be scheduled for pacemaker interrogation as well as the CT of the abdomen with contrast to better delineate the right lobe mass seen on the CT of the abdomen without contrast. Dustin Mary M.D. I have been assigned to dictate discharge summary on this account and I was not involved in the patient's management. Rachel Brasherjyotsna) N.PoRcío DR: GAYATRI JOB#: [id number] CC: RUBEN
--- NOTE | 2017-02-15 11:01 | Diagnostic Imaging Report ---
APPROVED REPORT CPT Code: 86142 Present Symptoms Lower Extremity Pain: Bilateral BILATERAL: Imaging reveals a patent deep venous system bilaterally. There is no evidence of thrombus within the femoral, popliteal or tibial segments. The greater saphenous veins are also within normal limits. Doppler indicates normal spontaneous flow within these segments.
== END 2017-02-10 17:51 | DRG 391 ==
LOC: 4E 11:53
PROC: 0DH63UZ Insertion of Feeding Device into Stomach, Percutaneous Approach (ICD-10-PCS; principal; 2017-02-08 08:20)
DX: R13.10 Dysphagia, unspecified (principal); E43 Unspecified severe protein-calorie malnutrition; N17.9 Acute kidney failure, unspecified; I48.0 Paroxysmal atrial fibrillation; I50.42 Chronic combined systolic (congestive) and diastolic (congestive) heart failure; I11.0 Hypertensive heart disease with heart failure; K76.0 Fatty (change of) liver, not elsewhere classified; G30.9 Alzheimer's disease, unspecified; E83.42 Hypomagnesemia; R16.0 Hepatomegaly, not elsewhere classified; F02.80 Dementia in other diseases classified elsewhere, unspecified severity, without behavioral disturbance, psychotic disturbance, mood disturbance, and anxiety; E86.0 Dehydration; R62.7 Adult failure to thrive; E03.9 Hypothyroidism, unspecified; E11.9 Type 2 diabetes mellitus without complications; Z95.0 Presence of cardiac pacemaker; Z87.891 Personal history of nicotine dependence; G47.33 Obstructive sleep apnea (adult) (pediatric); E78.5 Hyperlipidemia, unspecified; E86.1 Hypovolemia; N40.0 Benign prostatic hyperplasia without lower urinary tract symptoms; M19.90 Unspecified osteoarthritis, unspecified site; Z86.73 Personal history of transient ischemic attack (TIA), and cerebral infarction without residual deficits; Z91.81 History of falling
CPT/HCPCS: 36415; 70450; 74176; 76700; 80048; 80053; 82962; 83036; 83735; 83880; 84443; 85025; 85610; 85730; 93970; 94003; 94150; C9399; J1815; J8499

== ENCOUNTER 2018-07-02 12:43 | Inpatient (IN) | payer MEDICARE, OTHER ==
[~2018-07-02] VITALS: Ht 167.6 cm; Wt 72.1 kg
[~2018-07-02 12:43] MED LIST changes: +ACETAMINOPHEN325 M1 GT; +ARICEPT23 MG GT; +ATORVASTATIN CA10 MG GT; +ATORVASTATIN CA20 MG GT; +DOCUSATE S50 MG/5 ML GT; +EXELON4.6 MG TD; +HYDRALAZINE HCL25 M2 GT; +HYDRALAZINE HCL50 MG ORAL; +JANUVIA25 MG GT; +LANTUS SOL100 UNIT/1 SUBQ; +LEVOTHYROXINE200 MCG GT; +METFORMIN HCL500 M1 GT; +METOPROLOL TART50 M1 ORAL; +METOPROLOL TART50 MG GT; +NOVOLOG100 UNIT/3 SUBQ; +NOVOLOG100 UNIT/4 SQ; +TAMSULOSIN HCL0.4 MG GT; +VITAMIN D1000 UNI1 GT; +VITAMIN D1000 UNI1 ORAL
--- NOTE | 2018-07-02 12:57 | Emergency Room Report ---
History of Present Illness General Chief Complaint: Malfunctioning Gastric Tube Source: Medical Record (Pj Lerner MD) Present Illness HPI Patient is a 77-year-old male brought in by basic ambulance after increased leakage from his G-tube stoma site. Patient had recently had a G-tube replacement. Patient was noted to have a 24 Malagasy G-tube. There is noted to be increased discomfort as well as Increased drainage from the stoma. Patient a prior history of diabetes. (Pj Lerner MD) Allergies: Coded Allergies: No Known Allergies (Verified , 06/07/08) Patient History Past Medical History: see triage record Reviewed Nursing Documentation: PMH: Agreed; PSxH: Agreed (Pj Lerner MD) Nursing Documentation-PMH Past Medical History: No History, Except For Hx Cardiac Problems: Yes Hx Hypertension: Yes Hx Pacemaker: Yes Hx Diabetes: Yes Hx Cancer: No Hx Gastrointestinal Problems: No History Of Psychiatric Problem: Yes - DIMENTIA Hx Neurological Problems: No (Pj Lerner MD) Review of Systems All Other Systems: limited - by mental status (Pj Lerner MD) Physical Exam Vital Signs Date Time Temp Pulse Resp B/P (MAP) Pulse Ox O2 Delivery O2 Flow Rate FiO2 07/02/18 12:36 96.4 61 16 116/69 94 Room Air General Appearance: alert, Chronically Ill Neck: limited range of motion Respiratory: lungs clear, no rhonchi Cardiovascular #1: normal peripheral pulses, regular rate, rhythm Gastrointestinal: other - gtube with some drainage from site tube secured at 6 cm Musculoskeletal: normal inspection Neurologic: alert, motor weakness Psychiatric: depressed affect (Pj Lerner MD) Medical Decision Making Diagnostic Impression: Primary Impression: G-tube site cellulitis Additional Impressions: Pancreatitis Liver mass ER Course Patient is a 77-year-old male who presented after increased drainage from his G- tube. Differential diagnosis include was not limited to cellulitis, abscess, bowel obstruction among others. Because of complexity of patient's case laboratory testing and imaging studies were ordered. Patient's laboratory testing was unremarkable. Patient was noted to have some drainage from the area around his G-tube with a large amount of tube feeding. Patient's tube was initially noted to be approximately 6 cm. This was withdrawn to approximately 4.5 cm. Patient was seen by GI. Stoma site was noted to have some concern for possible infection.Patient will be started on IV antibiotics. CT of the abdomen pelvis read by radiology showed approximately 10cm liver mass without any definite evidence of pancreatitis or bowel obstruction. Dr. Dustin Mary was contacted for inpatient management. Labs Test 07/02/18 13:02 07/02/18 13:15 White Blood Count 8.2 K/UL (4.8-10.8) Red Blood Count 4.38 M/UL (4.70-6.10) Hemoglobin 13.5 G/DL (14.2-18.0) Hematocrit 40.4 % (42.0-52.0) Mean Corpuscular Volume 92 FL (80-99) Mean Corpuscular Hemoglobin 30.7 PG (27.0-31.0) Mean Corpuscular Hemoglobin Concent 33.4 G/DL (32.0-36.0) Red Cell Distribution Width 12.7 % (11.6-14.8) Platelet Count 216 K/UL (150-450) Mean Platelet Volume 6.2 FL (6.5-10.1) Neutrophils (%) (Auto) 66.1 % (45.0-75.0) Lymphocytes (%) (Auto) 22.5 % (20.0-45.0) Monocytes (%) (Auto) 8.9 % (1.0-10.0) Eosinophils (%) (Auto) 2.0 % (0.0-3.0) Basophils (%) (Auto) 0.4 % (0.0-2.0) Sodium Level 136 MMOL/L (136-145) Potassium Level 4.5 MMOL/L (3.5-5.1) Chloride Level 100 MMOL/L (98-107) Carbon Dioxide Level 31 MMOL/L (21-32) Anion Gap 5 mmol/L (5-15) Blood Urea Nitrogen 25 mg/dL (7-18) Creatinine 0.8 MG/DL (0.55-1.30) Estimat Glomerular Filtration Rate mL/min (>60) Glucose Level 227 MG/DL (74-106) Calcium Level 9.6 MG/DL (8.5-10.1) Total Bilirubin 0.6 MG/DL (0.2-1.0) Aspartate Amino Transf (AST/SGOT) 34 U/L (15-37) Alanine Aminotransferase (ALT/SGPT) 24 U/L (12-78) Alkaline Phosphatase 239 U/L (46-116) Total Protein 6.8 G/DL (6.4-8.2) Albumin 2.3 G/DL (3.4-5.0) Globulin 4.5 g/dL Albumin/Globulin Ratio 0.5 (1.0-2.7) Lipase 645 U/L (73-393) Urine Color Yellow Urine Appearance Clear Urine pH 6 (4.5-8.0) Urine Specific [place] 1.010 (1.005-1.035) Urine Protein Negative (NEGATIVE) Urine Glucose (UA) Negative (NEGATIVE) Urine Ketones Negative (NEGATIVE) Urine Blood 1+ (NEGATIVE) Urine Nitrite Negative (NEGATIVE) Urine Bilirubin Negative (NEGATIVE) Urine Urobilinogen 4 MG/DL (0.0-1.0) Urine Leukocyte Esterase Negative (NEGATIVE) Urine RBC 5-10 /HPF (0 - 0) Urine WBC 2-4 /HPF (0 - 0) Urine Squamous Epithelial Cells Occasional /LPF Urine Bacteria Occasional /HPF (NONE) (Pj Lerner MD) EKG Diagnostic Results Rate: normal Rhythm: NSR ST Segments: no acute changes (Marcellus Bernard MD) Rhythm Strip Diag. Results EP Interpretation: yes Rhythm: NSR, no PVC's, no ectopy (Marcellus Bernard MD) Last Vital Signs Date Time Temp Pulse Resp B/P (MAP) Pulse Ox O2 Delivery O2 Flow Rate FiO2 07/02/18 12:36 96.4 61 16 116/69 94 Room Air Status: unchanged (Pj Lerner MD) Disposition: ADMITTED INPATIENT Condition: Serious Pj Lerner MD Jul 02, 2018 12:57 Marcellus Bernard MD Jul 02, 2018 17:23
[2018-07-02 13:00] VITALS: BP 124/56
[2018-07-02] MEDS ORDERED: Gastrograffin 30ml ORAL ONE (13:00)
--- NOTE | 2018-07-02 13:00 | NUR ---
ED Nurse Note: Pt brought in by ambulance from [facility] d/t possible G-tube infection. No drainage or redness noted. Pt is awake and unable to follow commands, Hx of dementia. VSS.
--- NOTE | 2018-07-02 13:21 | NUR ---
ED Nurse Note: Collected blood/urine specimen and then sent to lab.
[2018-07-02 13:30] LABS: BASOPHILS % (AUTO) 0.4 % (0.0-2.0); HEMATOCRIT 40.4 % (42.0-52.0); HEMOGLOBIN 13.5 G/DL (14.2-18.0); LYMPHOCYTES % (AUTO) 22.5 % (20.0-45.0); MEAN CORPUSCULAR VOLUME 92 FL (80-99); MONOCYTES % (AUTO) 8.9 % (1.0-10.0); NEUTROPHILS % (AUTO) 66.1 % (45.0-75.0); PLATELET COUNT 216 K/UL (150-450); RED BLOOD COUNT 4.38 M/UL (4.70-6.10); RED CELL DISTRIBUTION WIDTH 12.7 % (11.6-14.8); WHITE BLOOD COUNT 8.2 K/UL (4.8-10.8)
[2018-07-02 13:52] LABS: APPEARANCE,URINE CLEAR; BILIRUBIN, URINE NEGATIVE (NEGATIVE); GLUCOSE, URINE (UA) NEGATIVE (NEGATIVE); KETONES,URINE NEGATIVE (NEGATIVE); LEUKOCYTE ESTERASE ,URINE NEGATIVE (NEGATIVE); NITRITE,URINE NEGATIVE (NEGATIVE); PH,URINE 6 (4.5-8.0); PROTEIN,URINE NEGATIVE (NEGATIVE); UROBILINOGEN,URINE 4 MG/DL (0.0-1.0)
[2018-07-02 13:54] LABS: COLOR,URINE YELLOW
[2018-07-02 13:59] LABS: ANION GAP 5 mmol/L (5-15); BLOOD UREA NITROGEN 25 mg/dL (7-18); CALCIUM 9.6 MG/DL (8.5-10.1); CARBON DIOXIDE 31 MMOL/L (21-32); CHLORIDE 100 MMOL/L (98-107); CREATININE 0.8 MG/DL (0.55-1.30); POTASSIUM 4.5 MMOL/L (3.5-5.1); SODIUM 136 MMOL/L (136-145)
[2018-07-02 14:04] LABS: ALANINE AMINOTRANSFERASE 24 U/L (12-78); ALBUMIN 2.3 G/DL (3.4-5.0); ALBUMIN/GLOBULIN RATIO 0.5 (1.0-2.7); ALKALINE PHOSPHATASE 239 U/L (46-116); ASPARTATE AMINO TRANSFERASE 34 U/L (15-37); BILIRUBIN,TOTAL 0.6 MG/DL (0.2-1.0)
--- NOTE | 2018-07-02 14:12 | GI Initial Consult Note ---
History of Present Illness General Date patient seen: Jul 02, 2018 Time patient seen: 14:08 Reason for Hospitalization: Malfunctioning Gastric Tube Referring physician: ALEXYS Reason for Consultation: GT SITE CELLULITIS Present Illness HPI Patient is a 77-year-old male brought in by basic ambulance after increased leakage from his G-tube stoma site. Patient had recently had a G-tube replacement. Patient was noted to have a 24 Gambian G-tube. There is noted to be increased discomfort as well as Increased drainage from the stoma. Patient a prior history of diabetes. GI consulted for GT leakage/infection. ROS limited, patient seen awake alert NAD with no active s/sx of N/V/D. GT site assessed noted to have purulent drainage and erythema around the site. The patient currently has a 24 swazi GT , which appears to be too small for the stoma. Labs reviewed; mainly noted for elevated alkaline phosphatase and elevated lipase levels. No leukocytosis noted. Documented GT was placed back in 2017 here at [place]. Home Meds Reported Medications Metoprolol Tartrate* (METOPROLOL TARTRATE*) 50 Mg Tablet, 50 MG GT EVERY 12 HOURS, TAB 0 Refills 07/01/18 Metformin Hcl* (METFORMIN HCL*) 500 Mg Tablet, 500 MG GT TWICE A DAY, TAB 07/01/18 Levothyroxine Sodium* (LEVOTHYROXINE SODIUM) 200 Mcg Vial, 50 MCG GT DAILY, VIAL 07/01/18 Insulin Glargine (LANTUS) 100 Unit/1 Ml Insuln.pen, 0 SUBQ BEDTIME, #1 EA 0 Refills 07/01/18 Sitagliptin* (JANUVIA*) 25 Mg Tablet, 100 MG GT DAILY, TAB 07/01/18 Insulin Aspart (NOVOLOG) 100 Unit/1 Ml Cartridge, 100 UNIT SQ 07/01/18 Hydralazine HCl (Hydralazine HCl) 25 Mg Tablet, 25 MG GT, TAB 07/01/18 Donepezil Hcl (ARICEPT) 23 Mg Tablet, 10 MG GT DAILY, TAB Swallow whole with water; do NOT crush or chew 07/01/18 Docusate Sodium (DOCUSATE SODIUM) 50 Mg/5 Ml Liquid, 50 MG GT, ML 07/01/18 Cholecalciferol (Vitamin D3)* (VITAMIN D*) 1,000 Unit Tablet, 1000 UNIT GT DAILY , #30 TAB 07/01/18 Atorvastatin Calcium* (ATORVASTATIN CALCIUM*) 20 Mg Tablet, 10 MG GT BEDTIME, TAB 07/01/18 Acetaminophen* (ACETAMINOPHEN 325MG TABLET*) 325 Mg Tablet, 650 MG GT Q4H PRN for For Pain, TAB 07/01/18 Tamsulosin Hcl (TAMSULOSIN HCL*) 0.4 Mg Cap.er.24h, 0.4 MG GT BEDTIME, CAP 02/10/17 Rivastigmine Tartrate (Exelon) 1 Each Patch.td24, 4.6 MG TD DAILY, PATCH 02/10/17 Metoprolol Tartrate* (METOPROLOL TARTRATE*) 50 Mg Tablet, 50 MG ORAL EVERY 12 HOURS, TAB 02/10/17 Levothyroxine Sodium* (LEVOTHYROXINE SODIUM*) 50 Mcg Tablet, 50 MCG ORAL DAILY, TAB Take in the morning on an empty stomach, at least 30 minutes before food. 02/10/17 Insulin Aspart* (NOVOLOG*) 100 Unit/1 Ml Insuln.pen, 0 SUBQ AC+HS PRN for Per rx protocol, #1 EA 0 Refills 02/10/17 Hydralazine Hcl* (HYDRALAZINE HCL*) 50 Mg Tablet, 50 MG ORAL Q12HR, TAB 02/10/17 Cholecalciferol (Vitamin D3)* (VITAMIN D*) 1,000 Unit Tablet, 1000 UNITS ORAL TWICE A DAY, #60 TAB 0 Refills 02/10/17 Atorvastatin Calcium* (LIPITOR*) 10 Mg Tablet, 10 MG GT BEDTIME, TAB 02/10/17 Furosemide* (LASIX*) 40 Mg Tablet, 40 MG ORAL DAILY, TAB 09/16/15 Levothyroxine Sodium* (LEVOTHYROXINE SODIUM*) 50 Mcg Tablet, 50 MCG ORAL DAILY, TAB Take in the morning on an empty stomach, at least 30 minutes before food. 09/16/15 Hydralazine HCl (Hydralazine HCl) 50 Mg Tablet, 50 MG ORAL EVERY 8 HOURS, TAB 07/19/15 Multivitamin (DAILY MULTIPLE VITAMIN) 1 Each Tablet, 1 TAB ORAL DAILY, #30 TAB 0 Refills 07/19/15 Furosemide (Furosemide) 20 Mg Vial, 20 MG IV Q AM, VIAL 07/19/15 Escitalopram Oxalate* (LEXAPRO*) 10 Mg Tablet, 10 MG ORAL DAILY, TAB 07/19/15 Hum Insulin Nph/Reg Insulin Hm (HUMULIN 70-30 VIAL) 100 Unit/1 Ml Vial, 20 UNITS SUBQ Q PM, VIAL 07/19/15 Hum Insulin Nph/Reg Insulin Hm (HUMULIN 70-30 VIAL) 100 Unit/1 Ml Vial, 50 UNITS SUBQ Q AM, VIAL 07/19/15 Ca Carbonate/Vitamin D3/Vit K (CALCIUM + D SOFT CHEWABLE TAB) 1 Each Tab.chew, 1 EACH PO BID, TAB 07/19/15 Losartan Potassium* (LOSARTAN POTASSIUM*) 50 Mg Tablet, 100 MG ORAL DAILY, TAB 07/20/14 Metoprolol Tartrate* (METOPROLOL TARTRATE*) 50 Mg Tablet, 50 MG ORAL BID, TAB 0 Refills 07/20/14 Metformin Hcl* (METFORMIN HCL*) 850 Mg Tablet, 850 MG ORAL THREE TIMES A DAY, TAB 07/20/14 Simvastatin (ZOCOR) 20 Mg Tablet, 20 MG ORAL BEDTIME, TAB 07/20/14 Donepezil Hcl* (DONEPEZIL HCL*) 10 Mg Tab.rapdis, 10 MG ORAL BEDTIME for For Anxiety, TAB 07/20/14 Med list reviewed/reconciled: Yes Allergies: Coded Allergies: No Known Allergies (Verified , 06/07/08) Patient History Limited by: medical condition History Provided By: Medical Record [facility] Narrative Past Medical History: No History, Except For Hx Cardiac Problems: Yes Hx Hypertension: Yes Hx Pacemaker: Yes Hx Diabetes: Yes Hx Cancer: No Hx Gastrointestinal Problems: No History Of Psychiatric Problem: Yes - DEMENTIA Hx Neurological Problems: No Social History: Denies: smoking, alcohol use, drug use, other Review of Systems All Other Systems: limited Physical Exam Vital Signs Date Time Temp Pulse Resp B/P (MAP) Pulse Ox O2 Delivery O2 Flow Rate FiO2 07/02/18 12:36 96.4 61 16 116/69 94 Room Air Sp02 EP Interpretation: reviewed, normal Labs Laboratory Tests Test 07/02/18 13:02 07/02/18 13:15 White Blood Count 8.2 K/UL (4.8-10.8) Red Blood Count 4.38 M/UL (4.70-6.10) L Hemoglobin 13.5 G/DL (14.2-18.0) L Hematocrit 40.4 % (42.0-52.0) L Mean Corpuscular Volume 92 FL (80-99) Mean Corpuscular Hemoglobin 30.7 PG (27.0-31.0) Mean Corpuscular Hemoglobin Concent 33.4 G/DL (32.0-36.0) Red Cell Distribution Width 12.7 % (11.6-14.8) Platelet Count 216 K/UL (150-450) Mean Platelet Volume 6.2 FL (6.5-10.1) L Neutrophils (%) (Auto) 66.1 % (45.0-75.0) Lymphocytes (%) (Auto) 22.5 % (20.0-45.0) Monocytes (%) (Auto) 8.9 % (1.0-10.0) Eosinophils (%) (Auto) 2.0 % (0.0-3.0) Basophils (%) (Auto) 0.4 % (0.0-2.0) Sodium Level 136 MMOL/L (136-145) Potassium Level 4.5 MMOL/L (3.5-5.1) Chloride Level 100 MMOL/L (98-107) Carbon Dioxide Level 31 MMOL/L (21-32) Anion Gap 5 mmol/L (5-15) Blood Urea Nitrogen 25 mg/dL (7-18) H Creatinine 0.8 MG/DL (0.55-1.30) Estimat Glomerular Filtration Rate mL/min (>60) Glucose Level 227 MG/DL (74-106) H Calcium Level 9.6 MG/DL (8.5-10.1) Total Bilirubin 0.6 MG/DL (0.2-1.0) Aspartate Amino Transf (AST/SGOT) 34 U/L (15-37) Alanine Aminotransferase (ALT/SGPT) 24 U/L (12-78) Alkaline Phosphatase 239 U/L (46-116) H Total Protein 6.8 G/DL (6.4-8.2) Albumin 2.3 G/DL (3.4-5.0) L Globulin 4.5 g/dL Albumin/Globulin Ratio 0.5 (1.0-2.7) L Lipase 645 U/L (73-393) H Urine Color Yellow Urine Appearance Clear Urine pH 6 (4.5-8.0) Urine Specific [place] 1.010 (1.005-1.035) Urine Protein Negative (NEGATIVE) Urine Glucose (UA) Negative (NEGATIVE) Urine Ketones Negative (NEGATIVE) Urine Blood 1+ (NEGATIVE) H Urine Nitrite Negative (NEGATIVE) Urine Bilirubin Negative (NEGATIVE) Urine Urobilinogen 4 MG/DL (0.0-1.0) H Urine Leukocyte Esterase Negative (NEGATIVE) Urine RBC Pending Urine WBC Pending Urine Squamous Epithelial Cells Pending Urine Bacteria Pending General Appearance: no apparent distress, alert Head: normocephalic EENT: PERRL/EOMI, normal ENT inspection Neck: supple Respiratory: normal breath sounds, no respiratory distress Cardiovascular: normal rate Gastrointestinal: normal inspection, non tender, soft, normal bowel sounds, non -distended, gt - see HPI Rectal: deferred Genitourinary: deferred Musculoskeletal: normal inspection, back normal Neurologic: alert, responsive Skin: normal inspection, normal color, no rash, warm/dry, palpation normal, well hydrated Lymphatic: normal inspection, no adenopathy GI: Plan Problems: (1) Pancreatitis (2) G-tube site cellulitis (3) LFT elevation (4) Malnutrition (5) Dehydration (6) CVA (cerebral vascular accident) Plan CTAP 10cm mass noted on the liver. will obtain GT site wound culture, recommend ID wound care consult for possible cauterization of hypergranulated tissue around GT site GT site care BID/prn topical abx will consider GT change to larger swazi if patient has persistent GT leakage obtain follow ST evaluation given history of CVA okay to start GTFs when admitted as inpatient OB stool r/o GI bleed trend lipase levels, obtain lipid panel bowel regime will follow with additional recs fu oncology, ID Discussed with Dr. Gonzales. Thank you for this patient referral, we will follow. The patient was seen and examined at bedside and all new and available data was reviewed in the patients chart. I agree with the above findings, impression and plan. (Patient seen earlier today. Signature stamp does not reflect patient encounter time.). - MD Lizzie Alas,[facility] JAMESON Jul 02, 2018 14:12
--- NOTE | 2018-07-02 14:20 | Diagnostic Imaging Report ---
Indication: Abdominal pain. Elevated alkaline phosphatase and lipase. Leaking gastrostomy Technique: Continuous helical transaxial imaging of the abdomen and pelvis was obtained from the lung bases to the pubic symphysis. No intravenous contrast was administered. Coronal 2-D reformats were also obtained. Automatic Exposure Control was utilized. Total Dose length Product (DLP): 850.[address] Dose Index Volume (CTDIvol): 16.38 mGy Comparison: CT 02/10/2017 Findings: The gastrostomy tube appears to be in good position. The balloon is inflated within the stomach lumen. The catheter tip is in the stomach lumen. Previously administered contrast is noted within the colon. There is a moderate degree of fecal retention with distention of the rectum due to fecal material. Diverticula noted within the rectosigmoid region. There is a large ill-defined hypodensity suspicious for tumor in the right lobe of the liver having about a 10 cm diameter. Mass was seen on the last CT in 2017 but the appear considerably smaller at the time. There is a small pericardial effusion currently noted. Aorta is moderately calcified. Pacemaker is present. Trace posterior basilar atelectasis noted. Mild fibrosis or scarring noted with reticular densities and bronchiectasis within the visualized posterior lung bases. There is no adrenal mass. The pancreas is unremarkable as evaluated on noncontrast imaging. There is no hydronephrosis. There is no evidence of bowel obstruction. There is a small umbilical hernia containing fat. The bladder is nondistended. On the 2017 examination there was evidence of pathologic fracture with metastatic lesions involving the T11 and T12 vertebra. Current examination shows further collapse of both the T11 and T12 vertebra especially T12. There is a resultant retropulsion of bone into the canal and a kyphosis deformity due to the fracture. IMPRESSION: Gastrostomy tube appears to be in good position. 10 cm mass within the right lobe of the liver suspicious for malignant neoplasm. Interval growth since 2017 noted. Pathologic compression fractures involving the T11 and T12 vertebra with retropulsion and kyphosis. Fecal retention and impaction. Small pericardial effusion Posterior basal atelectasis and fibrosis. Traction bronchiectasis. Pacemaker Diverticulosis of the colon. Small umbilical hernia containing fat. No CT evidence of pancreatitis. Lipase is more sensitive The CT scanner at [facility] is accredited by the [employer] and the scans are performed using dose optimization techniques as appropriate to a performed exam including Automatic Exposure control.
[2018-07-02] MEDS ORDERED: Mineral Oil 30ml ud GT PRN (14:30)
[2018-07-02] MEDS ORDERED: Piperacillin/Tazobactam 3.375 GM in NS 110 ML IVPB ONE (14:30)
--- NOTE | 2018-07-02 14:45 | NUR ---
ED Nurse Note: NOted sacral redness. No open wounds. Picture taken.
[2018-07-02 15:00] VITALS: BP 136/82
--- NOTE | 2018-07-02 15:40 | NUR ---
ED Nurse Note: picture uploaded.
[2018-07-02] MEDS ORDERED: PRO-STAT LIQUID30 ML GT (16:04)
[2018-07-02] MEDS ORDERED: JANUVIA25 MG GT (16:04)
[2018-07-02] MEDS ORDERED: PROSCAR5 MG HEMO (16:04)
--- NOTE | 2018-07-02 16:11 | NUR ---
ED Nurse Note: Report given to Inder RN
[2018-07-02 16:37] VITALS: BP 129/77
--- NOTE | 2018-07-02 16:39 | NUR ---
ED Nurse Note: Patient is transferring to 218 with 1 data center technician and 1 RN in stable condition.
[2018-07-02 16:45] LABS: CHOLESTEROL 90 MG/DL (< 200); HDL CHOLESTEROL 34 MG/DL (40-60); TRIGLYCERIDES 128 MG/DL (30-150)
--- NOTE | 2018-07-02 16:45 | NUR ---
NURSE NOTES: Pt received from ISMAEL Campbell alert and oriented x1 to name only, primarily Yoruba-speaking. Daughter at bedside. VSS stable. IV site asymptomatic and patent. Belongings all with patient upon transfer (1 tshirt and one blanket) - signed by transferring and receiving RN. Per daughter, the blanket is hers and she will take it home. Gtube site was reddened around the tube with some yellow/green scant drainage. Sacral redness apparent, placed optifoam for protection. WCP of sacral taken. Bed in lowest position, call light and belongings within reach. Will call Dr. Mary for admit orders.
[2018-07-02 17:01] VITALS: BP 139/68
--- NOTE | 2018-07-02 17:07 | NUR ---
NURSE NOTES: RN called [facility] and spoke with Vitaliy (intelligence group supervisor) who provided dates for pneumonia and flu vaccine: Pneumonia (04/11/2017), Flu (12/11/2017). will update on records.
--- NOTE | 2018-07-02 17:15 | NUR ---
HAND-OFF: Report given to ISMAEL Kelley. No acute s/s of distress noted. Addendum: 07/02/18 at 2038 by Inder Aburto RN Time of HANDOFF at 1914
--- NOTE | 2018-07-02 17:18 | General Progress Note ---
Subjective Allergies: Coded Allergies: No Known Allergies (Verified , 06/07/08) Objective Last 24 Hour Vital Signs Date Time Temp Pulse Resp B/P (MAP) Pulse Ox O2 Delivery O2 Flow Rate FiO2 07/02/18 16:37 98.3 69 13 129/77 100 Room Air 07/02/18 16:37 98.3 69 12 129/77 100 Room Air 07/02/18 15:00 98.3 64 12 136/82 100 Room Air 07/02/18 13:00 96.4 67 20 124/56 99 Room Air 07/02/18 12:36 96.4 61 16 116/69 94 Room Air Laboratory Tests 07/02/18 13:02: White Blood Count 8.2, Red Blood Count 4.38L, Hemoglobin 13.5L, Hematocrit 40.4L , Mean Corpuscular Volume 92, Mean Corpuscular Hemoglobin 30.7, Mean Corpuscular Hemoglobin Concent 33.4, Red Cell Distribution Width 12.7, Platelet Count 216, Mean Platelet Volume 6.2L, Neutrophils (%) (Auto) 66.1, Lymphocytes ( %) (Auto) 22.5, Monocytes (%) (Auto) 8.9, Eosinophils (%) (Auto) 2.0, Basophils (%) (Auto) 0.4, Sodium Level 136, Potassium Level 4.5, Chloride Level 100, Carbon Dioxide Level 31, Anion Gap 5, Blood Urea Nitrogen 25H, Creatinine 0.8, Estimat Glomerular Filtration Rate , Glucose Level 227H, Calcium Level 9.6, Total Bilirubin 0.6, Aspartate Amino Transf (AST/SGOT) 34, Alanine Aminotransferase (ALT/SGPT) 24, Alkaline Phosphatase 239H, Total Protein 6.8, Albumin 2.3L, Globulin 4.5, Albumin/Globulin Ratio 0.5L, Triglycerides Level 128 , Cholesterol Level 90, LDL Cholesterol 43, HDL Cholesterol 34L, Cholesterol/ HDL Ratio 2.6L, Lipase 645H 07/02/18 13:15: Urine Color Yellow, Urine Appearance Clear, Urine pH 6, Urine Specific [place] 1.010, Urine Protein Negative, Urine Glucose (UA) Negative, Urine Ketones Negative, Urine Blood 1+H, Urine Nitrite Negative, Urine Bilirubin Negative, Urine Urobilinogen 4H, Urine Leukocyte Esterase Negative, Urine RBC 5-10H, Urine WBC 2-4, Urine Squamous Epithelial Cells Occasional, Urine Bacteria Occasional Height (Feet): 5 Height (Inches): 6.00 Weight (Pounds): 160 Dustin Mary MD Jul 02, 2018 17:18
--- NOTE | 2018-07-02 17:18 | History & Physical ---
History and Physical History & Physicial Present Illness HPI Patient is a 77-year-old male brought in by [facility] after increased leakage from his G-tube stoma site. Patient had recently had a G-tube replacement due to malfunction. There is noted to be increased discomfort as well as Increased drainage from the stoma site. Patient a prior history of diabetes and malnutrition. He has had a GT for years. He has chronically in a SNF GI consulted for GT leakage/infection. Patient is unable to give any history. patient seen awake with no active s/sx of active gi symptoms. GT site assessed noted to have purulent drainage and erythema around the site. Labs reviewed; mainly noted for elevated alkaline phosphatase and elevated lipase levels. No leukocytosis noted. Patient has had prior admissions here at [place]. Meds reviewed and reconciled Allergies: Coded Allergies: No Known Allergies (Verified , 06/07/08) Past Medical History: dementia, diabetes, hypertension, aspiration, GT Social History: Denies: smoking, alcohol use, drug use, Physical WDWN NAD clear breath sounds bilaterally without rhonchi or wheeze [id number] without MRG NABS nontender no HSM; gt site leakage no CCE confused Labs Test 07/02/18 13:02 07/02/18 13:15 White Blood Count 8.2 K/UL (4.8-10.8) Red Blood Count 4.38 M/UL (4.70-6.10) Hemoglobin 13.5 G/DL (14.2-18.0) Hematocrit 40.4 % (42.0-52.0) Mean Corpuscular Volume 92 FL (80-99) Mean Corpuscular Hemoglobin 30.7 PG (27.0-31.0) Mean Corpuscular Hemoglobin Concent 33.4 G/DL (32.0-36.0) Red Cell Distribution Width 12.7 % (11.6-14.8) Platelet Count 216 K/UL (150-450) Mean Platelet Volume 6.2 FL (6.5-10.1) Neutrophils (%) (Auto) 66.1 % (45.0-75.0) Lymphocytes (%) (Auto) 22.5 % (20.0-45.0) Monocytes (%) (Auto) 8.9 % (1.0-10.0) Eosinophils (%) (Auto) 2.0 % (0.0-3.0) Basophils (%) (Auto) 0.4 % (0.0-2.0) Sodium Level 136 MMOL/L (136-145) Potassium Level 4.5 MMOL/L (3.5-5.1) Chloride Level 100 MMOL/L (98-107) Carbon Dioxide Level 31 MMOL/L (21-32) Anion Gap 5 mmol/L (5-15) Blood Urea Nitrogen 25 mg/dL (7-18) Creatinine 0.8 MG/DL (0.55-1.30) Estimat Glomerular Filtration Rate mL/min (>60) Glucose Level 227 MG/DL (74-106) Calcium Level 9.6 MG/DL (8.5-10.1) Total Bilirubin 0.6 MG/DL (0.2-1.0) Aspartate Amino Transf (AST/SGOT) 34 U/L (15-37) Alanine Aminotransferase (ALT/SGPT) 24 U/L (12-78) Alkaline Phosphatase 239 U/L (46-116) Total Protein 6.8 G/DL (6.4-8.2) Albumin 2.3 G/DL (3.4-5.0) Globulin 4.5 g/dL Albumin/Globulin Ratio 0.5 (1.0-2.7) Triglycerides Level 128 MG/DL (30-150) Cholesterol Level 90 MG/DL (< 200) LDL Cholesterol 43 mg/dL (<100) HDL Cholesterol 34 MG/DL (40-60) Cholesterol/HDL Ratio 2.6 (3.3-4.4) Lipase 645 U/L (73-393) Urine Color Yellow Urine Appearance Clear Urine pH 6 (4.5-8.0) Urine Specific [place] 1.010 (1.005-1.035) Urine Protein Negative (NEGATIVE) Urine Glucose (UA) Negative (NEGATIVE) Urine Ketones Negative (NEGATIVE) Urine Blood 1+ (NEGATIVE) Urine Nitrite Negative (NEGATIVE) Urine Bilirubin Negative (NEGATIVE) Urine Urobilinogen 4 MG/DL (0.0-1.0) Urine Leukocyte Esterase Negative (NEGATIVE) Urine RBC 5-10 /HPF (0 - 0) Urine WBC 2-4 /HPF (0 - 0) Urine Squamous Epithelial Cells Occasional /LPF Urine Bacteria Occasional /HPF (NONE) IMPRESSION gt site infection aspiration OBS chronic encephalopathy diabetes hypertension PLAN antibiotics GI evaluation assess need for change of GT care reviewed and discussed will follow up for dc to snf when able impression, plan, and exam edited and reviewed in detail care discussed with Dustin Bryan MD Jul 02, 2018 17:18
--- NOTE | 2018-07-02 17:27 | NUR ---
NURSE NOTES: Received admit orders from Dr. Mary. Will carry out admit orders.
[2018-07-02] MEDS ORDERED: Bacitracin Oint 15gm Tube TOPIC SCH (18:00)
[2018-07-02] MEDS: Docusate 100mg/10ml Liq GT SCH (18:14)
--- NOTE | 2018-07-02 18:15 | Consultation ---
History of Present Illness General Date patient seen: Jul 02, 2018 Reason for Hospitalization: Malfunctioning Gastric Tube Present Illness HPI 77M with multiple medical comorbidities presented with malfunction of g tube. recently had tube changed and not functioning properly. family at bedside. state he lives in convalescent home. they spend time with him here. have seen him eat at times but believe he has feeding tube for meds and feeds at times. no n/v/f/c. tube has been there for a while and changed prior. developing periwound cellulitis. surgery called to evaluate. patient seen, chart reviewed, patient examined. noted to have pancreatitis on admission Allergies: Coded Allergies: No Known Allergies (Verified , 06/07/08) Medication History Scheduled Amino Acids/Protein Hydrolys (Pro-Stat Liquid), 30 ML GT EVERY 8 HOURS, ( Reported) Atorvastatin Calcium* (Lipitor*), 10 MG GT BEDTIME, (Reported) Atorvastatin Calcium* (Atorvastatin Calcium*), 10 MG GT BEDTIME, (Reported) Ca Carbonate/Vitamin D3/Vit K (Calcium + D Soft Chewable Tab), 1 EACH PO BID, ( Reported) Cholecalciferol (Vitamin D3)* (Vitamin D*), 1,000 UNITS ORAL TWICE A DAY, ( Reported) Cholecalciferol (Vitamin D3)* (Vitamin D*), 1,000 UNIT GT DAILY, (Reported) Donepezil Hcl (Aricept), 10 MG GT DAILY, (Reported) Donepezil Hcl* (Donepezil Hcl*), 10 MG ORAL BEDTIME, (Reported) Escitalopram Oxalate* (Lexapro*), 10 MG ORAL DAILY, (Reported) Finasteride* (Proscar*), 5 MG HEMO DAILY, (Reported) Furosemide (Furosemide), 20 MG IV Q AM, (Reported) Furosemide* (Lasix*), 40 MG ORAL DAILY, (Reported) Hum Insulin Nph/Reg Insulin Hm (Humulin 70-30 Vial), 50 UNITS SUBQ Q AM, ( Reported) Hum Insulin Nph/Reg Insulin Hm (Humulin 70-30 Vial), 20 UNITS SUBQ Q PM, ( Reported) Hydralazine HCl (Hydralazine HCl), 50 MG ORAL EVERY 8 HOURS, (Reported) Hydralazine Hcl* (Hydralazine Hcl*), 50 MG ORAL Q12HR, (Reported) Insulin Glargine (Lantus), 0 SUBQ BEDTIME, (Reported) Levothyroxine Sodium* (Levothyroxine Sodium*), 50 MCG ORAL DAILY, (Reported) Levothyroxine Sodium* (Levothyroxine Sodium*), 50 MCG ORAL DAILY, (Reported) Levothyroxine Sodium* (Levothyroxine Sodium), 50 MCG GT DAILY, (Reported) Losartan Potassium* (Losartan Potassium*), 100 MG ORAL DAILY, (Reported) Metformin Hcl* (Metformin Hcl*), 850 MG ORAL THREE TIMES A DAY, (Reported) Metformin Hcl* (Metformin Hcl*), 500 MG GT TWICE A DAY, (Reported) Metoprolol Tartrate* (Metoprolol Tartrate*), 50 MG ORAL BID, (Reported) Metoprolol Tartrate* (Metoprolol Tartrate*), 50 MG ORAL EVERY 12 HOURS, ( Reported) Metoprolol Tartrate* (Metoprolol Tartrate*), 50 MG GT EVERY 12 HOURS, (Reported) Multivitamin (Daily Multiple Vitamin), 1 TAB ORAL DAILY, (Reported) Rivastigmine Tartrate (Exelon), 4.6 MG TD DAILY, (Reported) Simvastatin (Zocor), 20 MG ORAL BEDTIME, (Reported) Sitagliptin* (Januvia*), 100 MG GT DAILY, (Reported) Sitagliptin* (Januvia*), 100 MG GT DAILY, (Reported) Tamsulosin Hcl (Tamsulosin Hcl*), 0.4 MG GT BEDTIME, (Reported) Scheduled PRN Acetaminophen* (Acetaminophen 325MG Tablet*), 650 MG GT Q4H PRN for For Pain, ( Reported) Insulin Aspart* (Novolog*), 0 SUBQ AC+HS PRN for Per rx protocol, (Reported) Miscellaneous Medications Docusate Sodium (Docusate Sodium), 50 MG GT, (Reported) Hydralazine HCl (Hydralazine HCl), 25 MG GT, (Reported) Insulin Aspart (Novolog), 100 UNIT SQ, (Reported) Patient History Limited by: medical condition History Provided By: Patient, Family Member, Medical Record, PMD Healthcare decision maker N Resuscitation status Advanced Directive on File Past Medical/Surgical History Past Medical/Surgical History: (1) Episode of generalized weakness (2) Atrial fibrillation and flutter (3) CHF (congestive heart failure) (4) ACS (acute coronary syndrome) (5) Syncope (6) Dehydration (7) Malnutrition (8) CVA (cerebral vascular accident) (9) LFT elevation (10) Skin infection at gastrostomy tube site (11) Skin infection at gastrostomy tube site (12) Liver mass (13) G-tube site cellulitis (14) Pancreatitis Review of Systems Review of Symptoms General ROS: no weight loss or fever Psychological ROS: no depression or mood changes, no memory loss Ophthalmic ROS: no visual changes or eye irritation ENT ROS: no nasal congestion, hearing loss, dizziness Allergy and Immunology ROS: no allergic symptoms or urticaria Hematological and Lymphatic ROS: no swollen glands, unusual bleeding or bruising Endocrine ROS: no polyuria, polydipsia, weight changes, temperature intolerance Respiratory ROS: no cough, shortness of breath, or wheezing Cardiovascular ROS: no chest pain or dyspnea on exertion Gastrointestinal ROS: denies abdominal pain, no bright red blood in stool. Musculoskeletal ROS: no myalgias or arthralgias Neurological ROS: no TIA or stroke symptoms Dermatological ROS: no new or changing skin lesions, rashes or pruritis Physical Exam Physical Exam General appearance: alert, cooperative, no distress, appears stated age Head: Normocephalic, without obvious abnormality, atraumatic Eyes: conjunctivae/corneas clear. PERRL, EOM's intact. Fundi benign Throat: Lips, mucosa, and tongue normal. Teeth and gums normal Neck: supple, symmetrical, trachea midline, no adenopathy, thyroid: not enlarged, symmetric, no tenderness/mass/nodules, no carotid bruit and no JVD Lungs: clear to auscultation bilaterally Heart: regular rate and rhythm, S1, S2 normal, no murmur, click, rub or gallop Abdomen: soft, non-tender. Bowel sounds normal. No masses, no organomegaly. g tube with danna-tube cellulitis Extremities: extremities normal, atraumatic, no cyanosis or edema Pulses: 2+ and symmetric Skin: Skin color, texture, turgor normal. No rashes or lesions Neurologic: Grossly normal Last 24 Hour Vital Signs Date Time Temp Pulse Resp B/P (MAP) Pulse Ox O2 Delivery O2 Flow Rate FiO2 07/02/18 17:01 96.4 66 22 139/68 (91) 99 07/02/18 16:37 98.3 69 13 129/77 100 Room Air 07/02/18 16:37 98.3 69 12 129/77 100 Room Air 07/02/18 15:00 98.3 64 12 136/82 100 Room Air 07/02/18 13:00 96.4 67 20 124/56 99 Room Air 07/02/18 12:36 96.4 61 16 116/69 94 Room Air Laboratory Tests Test 07/02/18 13:02 07/02/18 13:15 White Blood Count 8.2 K/UL (4.8-10.8) Red Blood Count 4.38 M/UL (4.70-6.10) L Hemoglobin 13.5 G/DL (14.2-18.0) L Hematocrit 40.4 % (42.0-52.0) L Mean Corpuscular Volume 92 FL (80-99) Mean Corpuscular Hemoglobin 30.7 PG (27.0-31.0) Mean Corpuscular Hemoglobin Concent 33.4 G/DL (32.0-36.0) Red Cell Distribution Width 12.7 % (11.6-14.8) Platelet Count 216 K/UL (150-450) Mean Platelet Volume 6.2 FL (6.5-10.1) L Neutrophils (%) (Auto) 66.1 % (45.0-75.0) Lymphocytes (%) (Auto) 22.5 % (20.0-45.0) Monocytes (%) (Auto) 8.9 % (1.0-10.0) Eosinophils (%) (Auto) 2.0 % (0.0-3.0) Basophils (%) (Auto) 0.4 % (0.0-2.0) Sodium Level 136 MMOL/L (136-145) Potassium Level 4.5 MMOL/L (3.5-5.1) Chloride Level 100 MMOL/L (98-107) Carbon Dioxide Level 31 MMOL/L (21-32) Anion Gap 5 mmol/L (5-15) Blood Urea Nitrogen 25 mg/dL (7-18) H Creatinine 0.8 MG/DL (0.55-1.30) Estimat Glomerular Filtration Rate mL/min (>60) Glucose Level 227 MG/DL (74-106) H Calcium Level 9.6 MG/DL (8.5-10.1) Total Bilirubin 0.6 MG/DL (0.2-1.0) Aspartate Amino Transf (AST/SGOT) 34 U/L (15-37) Alanine Aminotransferase (ALT/SGPT) 24 U/L (12-78) Alkaline Phosphatase 239 U/L (46-116) H Total Protein 6.8 G/DL (6.4-8.2) Albumin 2.3 G/DL (3.4-5.0) L Globulin 4.5 g/dL Albumin/Globulin Ratio 0.5 (1.0-2.7) L Triglycerides Level 128 MG/DL (30-150) Cholesterol Level 90 MG/DL (< 200) LDL Cholesterol 43 mg/dL (<100) HDL Cholesterol 34 MG/DL (40-60) L Cholesterol/HDL Ratio 2.6 (3.3-4.4) L Lipase 645 U/L (73-393) H Urine Color Yellow Urine Appearance Clear Urine pH 6 (4.5-8.0) Urine Specific [place] 1.010 (1.005-1.035) Urine Protein Negative (NEGATIVE) Urine Glucose (UA) Negative (NEGATIVE) Urine Ketones Negative (NEGATIVE) Urine Blood 1+ (NEGATIVE) H Urine Nitrite Negative (NEGATIVE) Urine Bilirubin Negative (NEGATIVE) Urine Urobilinogen 4 MG/DL (0.0-1.0) H Urine Leukocyte Esterase Negative (NEGATIVE) Urine RBC 5-10 /HPF (0 - 0) H Urine WBC 2-4 /HPF (0 - 0) Urine Squamous Epithelial Cells Occasional /LPF Urine Bacteria Occasional /HPF (NONE) Height (Feet): 5 Height (Inches): 6.00 Weight (Pounds): 160 Medications Current Medications Medications (Trade) Dose Ordered Sig/Reagan Route PRN Reason Start Time Stop Time Status Last Admin Dose Admin Bacitracin (Bacitracin 15gm tube) 1 applic THREE TIMES A DAY TOPIC 07/02/18 18:00 08/01/18 17:59 Clotrimazole (Lotrimin) 1 applic THREE TIMES A DAY TOPIC 07/02/18 18:00 08/01/18 17:59 Docusate Sodium (Colace) 100 mg TID GT 07/02/18 18:00 08/01/18 17:59 Lansoprazole (Prevacid) 30 mg DAILY GT 07/03/18 09:00 08/02/18 08:59 Mineral Oil (Mineral Oil) 30 ml DAILYPRN PRN GT Constipation 07/02/18 14:30 08/01/18 14:29 Polyethylene Glycol (Miralax) 17 gm BEDTIME GT 07/02/18 21:00 08/01/18 20:59 Assessment/Plan Problem List: (1) Malnutrition Assessment & Plan: needs feeds. will start now that new g tube placed by GI per family tolerating oral diet will ask speech to see prior to oral feeds. ICD Codes: E46 - Unspecified protein-calorie malnutrition SNOMED: 59019727 (2) Dehydration ICD Codes: E86.0 - Dehydration SNOMED: 33245454 (3) CVA (cerebral vascular accident) ICD Codes: I63.9 - CVA (cerebral vascular accident) SNOMED: 295051754 (4) LFT elevation ICD Codes: R94.5 - Abnormal results of liver function studies SNOMED: 429263784, 609967282 (5) Liver mass ICD Codes: R16.0 - Hepatomegaly, not elsewhere classified SNOMED: 443310561 (6) G-tube site cellulitis ICD Codes: K94.22 - Gastrostomy infection; L03.319 - Cellulitis of trunk, unspecified SNOMED: 669486892, 364121220 (7) Pancreatitis Assessment & Plan: acute pancreatitis etiology unknown no etoh history will check lipids and US abd ICD Codes: K85.90 - Acute pancreatitis without necrosis or infection, unspecified SNOMED: 75380563 (8) Atrial fibrillation and flutter ICD Codes: I48.91 - Unspecified atrial fibrillation; I48.92 - Unspecified atrial flutter SNOMED: 062858197 (9) CHF (congestive heart failure) ICD Codes: I50.9 - Heart failure, unspecified SNOMED: 03029098 (10) Syncope ICD Codes: R55 - Syncope and collapse SNOMED: 227558308 (11) ACS (acute coronary syndrome) ICD Codes: I24.9 - Acute ischemic heart disease, unspecified SNOMED: 968101533 (12) Episode of generalized weakness ICD Codes: R53.1 - Weakness SNOMED: 04224164 (13) Skin infection at gastrostomy tube site Assessment & Plan: local wound care no abscess no surgical intervention needed at this time will monitor thank you ICD Codes: K94.22 - Skin infection at gastrostomy tube site; L08.9 - Local infection of the skin and subcutaneous tissue, unspecified SNOMED: 967116326 (14) Skin infection at gastrostomy tube site ICD Codes: K94.22 - Gastrostomy infection; L08.9 - Local infection of the skin and subcutaneous tissue, unspecified SNOMED: 105671859, 852698442 Jesse Cash Jul 02, 2018 18:15
--- NOTE | 2018-07-02 19:15 | NUR ---
HAND-OFF: Report given to ISMAEL Kelley. No acute s/s of distress.
--- NOTE | 2018-07-02 19:20 | NUR ---
NURSE NOTES: Received report from Jack Aburto RN. Patient in bed with family at bedside with no complaints of acute pain or discomfort noted at this time. Kept clean, dry, and comfortable in bed at all times. IV line intact and patent SL. Placed on continuous cardiac monitoring per protocol. On GTF as ordered but placed on NPO status after MN for Abd US procedure in the AM. Safety precaution in place; siderails X3 up, call light within reach, bed in lowest position, breaks and alarm on at all times. needs and wants anticipated and attended, will continue plan of care and monitor for any changes noted.
[2018-07-02 20:00] VITALS: BP 114/65
[2018-07-02] MEDS ORDERED: Donepezil 10mg tab ORAL SCH (21:00)
[2018-07-02] MEDS ORDERED: NovoLOG Insulin Flexpen SUBQ SCH (21:00)
--- NOTE | 2018-07-02 21:00 | NUR ---
NURSE NOTES: Spoke with patients daughter regarding Abd US procedure to be done today; Patient was refusing per Jessi (US tech) earlier. Will reschedule procedure early in the morning 07/03/18. Patient Placed on NPO status after MN; GTF on hold. BS checked, resulted 110. Will continue to monitor.
[2018-07-02] MEDS ORDERED: ceFAZolin 1gm/50ml Premix 50 ML IV SCH (22:00)
[2018-07-02] MEDS: Donepezil 10mg tab GT SCH (22:10)
[2018-07-02] MEDS: Miralax 17gm pkt GT SCH (22:10)
[2018-07-02] MEDS: ceFAZolin 1gm in D5W 55ml IVPB SCH (22:30)
[2018-07-03] VITALS: BP 133/53
--- NOTE | 2018-07-03 03:43 | NUR ---
NURSE NOTES: Patient in bed asleep with no S/S of distress at this time. Will continue to monitor
[2018-07-03 04:00] VITALS: BP 135/82
[2018-07-03] MEDS: ceFAZolin 1gm in D5W 55ml IVPB SCH ×3 (05:40→22:26)
[2018-07-03] MEDS: NovoLOG Insulin Flexpen SUBQ SCH ×3 (05:41→17:46)
[2018-07-03] MEDS: HydrALAZINE 50mg tab ORAL SCH ×4 (05:44→17:45)
[2018-07-03 07:23] LABS: BASOPHILS % (AUTO) 0.5 % (0.0-2.0); EOSINOPHILS % (AUTO) 1.9 % (0.0-3.0); HEMATOCRIT 42.8 % (42.0-52.0); LYMPHOCYTES % (AUTO) 27.5 % (20.0-45.0); MEAN CORPUSCULAR VOLUME 93 FL (80-99); NEUTROPHILS % (AUTO) 63.2 % (45.0-75.0); PLATELET COUNT 238 K/UL (150-450); RED BLOOD COUNT 4.57 M/UL (4.70-6.10); WHITE BLOOD COUNT 8.4 K/UL (4.8-10.8)
--- NOTE | 2018-07-03 07:31 | NUR ---
HAND-OFF: Report given to David Bartlett RN. Patient in stable condition. Endorsed plan of care.
--- NOTE | 2018-07-03 07:39 | NUR ---
NURSE NOTES: received patient report from lopez hernandez. patient is on bed asleep. not in acute distress. no arrythmias reported during the night. sr on the monitor. will follow plan of care.
[2018-07-03 07:46] LABS: ALANINE AMINOTRANSFERASE 22 U/L (12-78); ALBUMIN 2.3 G/DL (3.4-5.0); ALBUMIN/GLOBULIN RATIO 0.5 (1.0-2.7); ALKALINE PHOSPHATASE 203 U/L (46-116); ANION GAP 7 mmol/L (5-15); ASPARTATE AMINO TRANSFERASE 36 U/L (15-37); BILIRUBIN,TOTAL 0.5 MG/DL (0.2-1.0); BLOOD UREA NITROGEN 22 mg/dL (7-18); CALCIUM 9.9 MG/DL (8.5-10.1); CARBON DIOXIDE 28 MMOL/L (21-32); CHLORIDE 103 MMOL/L (98-107); CREATININE 0.9 MG/DL (0.55-1.30); PHOSPHORUS 3.4 MG/DL (2.5-4.9); POTASSIUM 4.2 MMOL/L (3.5-5.1); SODIUM 138 MMOL/L (136-145)
[2018-07-03 08:00] VITALS: BP 115/50
[2018-07-03] MEDS: Vitamin D 1000 IU Tab ORAL SCH ×2 (09:33→17:44)
[2018-07-03] MEDS: metFORMIN 500mg tab GT SCH ×2 (09:34→17:44)
[2018-07-03] MEDS: Metoprolol Tartrate 50mg tab GT SCH ×2 (09:34→22:16)
[2018-07-03] MEDS: Losartan 50mg tab GT SCH (09:34)
[2018-07-03] MEDS: Docusate 100mg/10ml Liq GT SCH ×3 (09:35→17:44)
--- NOTE | 2018-07-03 10:30 | Diagnostic Imaging Report ---
Indication: Abnormal liver function tests, abnormal, evaluation of abnormality described on recent CT scan renal function tests Technique: Limited grayscale duplex images of the upper abdomen. Patient unable to tolerate complete exam, so the left kidney and spleen were not visualized Comparison: Reference made to abdomen pelvis CT dated 07/02/2018 Findings: Pancreas is incompletely visualized, visualized portions unremarkable. No hepatic surface nodularity demonstrated. Somewhat ill-defined heterogeneous mass is seen in the right hepatic lobe, measuring 6.8 x 8.3 x 5.9 cm, corresponding to findings reported on recent CT scan. Patent portal and hepatic veins. Gallbladder is unremarkable, no stones, wall thickening, nor pericholecystic fluid. Common bile duct measures 4 mm diameter. Right kidney measures 10.3 cm in length, demonstrates small cysts. Spleen, left kidney, not visualized Impression: Limited exam, as described Solid right lobe liver mass, also reported on recent CT scan, concerning for neoplasm, either primary or metastatic Negative for gallstones or dilated bile ducts Incidental finding of right renal cysts
--- NOTE | 2018-07-03 10:31 | GI Progress Note ---
Assessment/Plan Problems: (1) Skin infection at gastrostomy tube site ICD Codes: K94.22 - Skin infection at gastrostomy tube site; L08.9 - Local infection of the skin and subcutaneous tissue, unspecified SNOMED: 204080187 (2) Liver mass ICD Codes: R16.0 - Hepatomegaly, not elsewhere classified SNOMED: 489862266 (3) Dehydration ICD Codes: E86.0 - Dehydration SNOMED: 57853246 (4) CVA (cerebral vascular accident) ICD Codes: I63.9 - CVA (cerebral vascular accident) SNOMED: 771714025 (5) G-tube site cellulitis ICD Codes: K94.22 - Gastrostomy infection; L03.319 - Cellulitis of trunk, unspecified SNOMED: 466013508, 682774021 Status: unchanged Status Narrative Discussed with Dr. Gonzales Assessment/Plan CTAP 10cm mass noted on the liver. Wound culture negative around GT site Pancreatitis, now resolved GT site care BID/prn, fu wound care recs topical abx will consider GT change to larger samoan if patient has persistent GT leakage fu ST evaluation given history of CVA GTFs per RD to goal OB stool r/o GI bleed bowel regime follow labs fu oncology The patient was seen and examined at bedside and all new and available data was reviewed in the patients chart. I agree with the above findings, impression and plan. (Patient seen earlier today. Signature stamp does not reflect patient encounter time.). - Demetris Gonzales MD Subjective Subjective Patient complained of severe tenderness and pain at the G-tube site Objective Last 24 Hour Vital Signs Date Time Temp Pulse Resp B/P (MAP) Pulse Ox O2 Delivery O2 Flow Rate FiO2 07/03/18 09:34 96 115/50 07/03/18 09:34 115/50 07/03/18 08:00 97.5 96 21 115/50 (71) 98 07/03/18 05:44 135/82 07/03/18 04:00 60 07/03/18 04:00 98.2 59 18 135/82 (99) 97 07/03/18 00:00 64 07/03/18 00:00 97.8 63 18 133/53 (79) 96 07/03/18 00:00 133/53 4/30/19 21:00 Room Air 07/02/18 20:00 69 07/02/18 20:00 97.9 74 18 114/65 (81) 99 07/02/18 17:01 96.4 66 22 139/68 (91) 99 07/02/18 17:01 Room Air 07/02/18 16:37 98.3 69 13 129/77 100 Room Air 07/02/18 16:37 98.3 69 12 129/77 100 Room Air 07/02/18 15:00 98.3 64 12 136/82 100 Room Air 07/02/18 13:00 96.4 67 20 124/56 99 Room Air 07/02/18 12:36 96.4 61 16 116/69 94 Room Air Intake and Output 07/02/18 07/03/18 18:59 06:59 Intake Total 110 ml Output Total 1 ml Balance 110 ml -1 ml Intake Oral 0 ml IV Total 110 ml Output Urine Total 1 ml # Voids 1 1 # Bowel Movements 1 2 Laboratory Tests Test 07/02/18 13:02 07/02/18 13:15 07/03/18 06:50 White Blood Count 8.2 K/UL (4.8-10.8) 8.4 K/UL (4.8-10.8) Red Blood Count 4.38 M/UL (4.70-6.10) L 4.57 M/UL (4.70-6.10) L Hemoglobin 13.5 G/DL (14.2-18.0) L 14.0 G/DL (14.2-18.0) L Hematocrit 40.4 % (42.0-52.0) L 42.8 % (42.0-52.0) Mean Corpuscular Volume 92 FL (80-99) 93 FL (80-99) Mean Corpuscular Hemoglobin 30.7 PG (27.0-31.0) 30.6 PG (27.0-31.0) Mean Corpuscular Hemoglobin Concent 33.4 G/DL (32.0-36.0) 32.7 G/DL (32.0-36.0) Red Cell Distribution Width 12.7 % (11.6-14.8) 13.0 % (11.6-14.8) Platelet Count 216 K/UL (150-450) 238 K/UL (150-450) Mean Platelet Volume 6.2 FL (6.5-10.1) L 6.2 FL (6.5-10.1) L Neutrophils (%) (Auto) 66.1 % (45.0-75.0) 63.2 % (45.0-75.0) Lymphocytes (%) (Auto) 22.5 % (20.0-45.0) 27.5 % (20.0-45.0) Monocytes (%) (Auto) 8.9 % (1.0-10.0) 7.0 % (1.0-10.0) Eosinophils (%) (Auto) 2.0 % (0.0-3.0) 1.9 % (0.0-3.0) Basophils (%) (Auto) 0.4 % (0.0-2.0) 0.5 % (0.0-2.0) Sodium Level 136 MMOL/L (136-145) 138 MMOL/L (136-145) Potassium Level 4.5 MMOL/L (3.5-5.1) 4.2 MMOL/L (3.5-5.1) Chloride Level 100 MMOL/L (98-107) 103 MMOL/L (98-107) Carbon Dioxide Level 31 MMOL/L (21-32) 28 MMOL/L (21-32) Anion Gap 5 mmol/L (5-15) 7 mmol/L (5-15) Blood Urea Nitrogen 25 mg/dL (7-18) H 22 mg/dL (7-18) H Creatinine 0.8 MG/DL (0.55-1.30) 0.9 MG/DL (0.55-1.30) Estimat Glomerular Filtration Rate mL/min (>60) mL/min (>60) Glucose Level 227 MG/DL (74-106) H 111 MG/DL (74-106) #H Calcium Level 9.6 MG/DL (8.5-10.1) 9.9 MG/DL (8.5-10.1) Total Bilirubin 0.6 MG/DL (0.2-1.0) 0.5 MG/DL (0.2-1.0) Aspartate Amino Transf (AST/SGOT) 34 U/L (15-37) 36 U/L (15-37) Alanine Aminotransferase (ALT/SGPT) 24 U/L (12-78) 22 U/L (12-78) Alkaline Phosphatase 239 U/L (46-116) H 203 U/L (46-116) H Total Protein 6.8 G/DL (6.4-8.2) 7.2 G/DL (6.4-8.2) Albumin 2.3 G/DL (3.4-5.0) L 2.3 G/DL (3.4-5.0) L Globulin 4.5 g/dL 4.9 g/dL Albumin/Globulin Ratio 0.5 (1.0-2.7) L 0.5 (1.0-2.7) L Triglycerides Level 128 MG/DL (30-150) Cholesterol Level 90 MG/DL (< 200) LDL Cholesterol 43 mg/dL (<100) HDL Cholesterol 34 MG/DL (40-60) L Cholesterol/HDL Ratio 2.6 (3.3-4.4) L Lipase 645 U/L (73-393) H 189 U/L (73-393) Urine Color Yellow Urine Appearance Clear Urine pH 6 (4.5-8.0) Urine Specific [place] 1.010 (1.005-1.035) Urine Protein Negative (NEGATIVE) Urine Glucose (UA) Negative (NEGATIVE) Urine Ketones Negative (NEGATIVE) Urine Blood 1+ (NEGATIVE) H Urine Nitrite Negative (NEGATIVE) Urine Bilirubin Negative (NEGATIVE) Urine Urobilinogen 4 MG/DL (0.0-1.0) H Urine Leukocyte Esterase Negative (NEGATIVE) Urine RBC 5-10 /HPF (0 - 0) H Urine WBC 2-4 /HPF (0 - 0) Urine Squamous Epithelial Cells Occasional /LPF Urine Bacteria Occasional /HPF (NONE) Phosphorus Level 3.4 MG/DL (2.5-4.9) Magnesium Level 2.0 MG/DL (1.8-2.4) Alpha Fetoprotein Pending Carcinoembryonic Antigen Pending Microbiology Date/Time Source Procedure Growth Status 07/02/18 15:50 Abdomen Gram Stain - Final Resulted 07/02/18 15:50 Abdomen Wound Culture Pending Resulted Height (Feet): 5 Height (Inches): 6.00 Weight (Pounds): 158 General Appearance: WD/WN, no apparent distress, alert Cardiovascular: normal rate Respiratory/Chest: normal breath sounds, no respiratory distress Abdominal Exam: normal bowel sounds, non tender, soft, GT site - Cellulitis, erythema noted with drainage around the site Extremities: non-tender Michelle Samuel NP July 03, 2018 10:31
[2018-07-03 12:00] VITALS: BP 119/52
--- NOTE | 2018-07-03 13:27 | Pulmonology Progress Note ---
Assessment/Plan Assessment/Plan Pulmonary Progress Note Subjective Admitted with G tube dysfunction, previously noted Liver Mass has increased in size - now 10cm, GI following Stable overnight Allergies: No Known Allergies Objective Vital Signs Noted Physical WDWN NAD clear breath sounds bilaterally without rhonchi or wheeze [id number] without MRG NABS nontender no HSM; gt site leakage no CCE confused Laboratory Tests 07/02/18 13:02: White Blood Count 8.2, Red Blood Count 4.38L, Hemoglobin 13.5L, Hematocrit 40.4L , Mean Corpuscular Volume 92, Mean Corpuscular Hemoglobin 30.7, Mean Corpuscular Hemoglobin Concent 33.4, Red Cell Distribution Width 12.7, Platelet Count 216, Mean Platelet Volume 6.2L, Neutrophils (%) (Auto) 66.1, Lymphocytes ( %) (Auto) 22.5, Monocytes (%) (Auto) 8.9, Eosinophils (%) (Auto) 2.0, Basophils (%) (Auto) 0.4, Sodium Level 136, Potassium Level 4.5, Chloride Level 100, Carbon Dioxide Level 31, Anion Gap 5, Blood Urea Nitrogen 25H, Creatinine 0.8, Estimat Glomerular Filtration Rate , Glucose Level 227H, Calcium Level 9.6, Total Bilirubin 0.6, Aspartate Amino Transf (AST/SGOT) 34, Alanine Aminotransferase (ALT/SGPT) 24, Alkaline Phosphatase 239H, Total Protein 6.8, Albumin 2.3L, Globulin 4.5, Albumin/Globulin Ratio 0.5L, Triglycerides Level 128 , Cholesterol Level 90, LDL Cholesterol 43, HDL Cholesterol 34L, Cholesterol/ HDL Ratio 2.6L, Lipase 645H 07/02/18 13:15: Urine Color Yellow, Urine Appearance Clear, Urine pH 6, Urine Specific [place] 1.010, Urine Protein Negative, Urine Glucose (UA) Negative, Urine Ketones Negative, Urine Blood 1+H, Urine Nitrite Negative, Urine Bilirubin Negative, Urine Urobilinogen 4H, Urine Leukocyte Esterase Negative, Urine RBC 5-10H, Urine WBC 2-4, Urine Squamous Epithelial Cells Occasional, Urine Bacteria Occasional Height (Feet): 5 Height (Inches): 6.00 Weight (Pounds): 160 HPI Patient is a 77-year-old male brought in by basic ambulance after increased leakage from his G-tube stoma site. Patient had recently had a G-tube replacement due to malfunction. There is noted to be increased discomfort as well as Increased drainage from the stoma site. Patient a prior history of diabetes and malnutrition. He has had a GT for years. He has chronically in a SNF GI consulted for GT leakage/infection. Patient is unable to give any history. patient seen awake with no active s/sx of active gi symptoms. GT site assessed noted to have purulent drainage and erythema around the site. Labs reviewed; mainly noted for elevated alkaline phosphatase and elevated lipase levels. No leukocytosis noted. Patient has had prior admissions here at [facility]. 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 Back to SNF once stable Subjective ROS Limited/Unobtainable: No Allergies: Coded Allergies: No Known Allergies (Verified , 06/07/08) Objective Last 24 Hour Vital Signs Date Time Temp Pulse Resp B/P (MAP) Pulse Ox O2 Delivery O2 Flow Rate FiO2 07/03/18 09:34 96 115/50 07/03/18 09:34 115/50 07/03/18 09:00 Room Air 07/03/18 08:00 63 07/03/18 08:00 97.5 96 21 115/50 (71) 98 07/03/18 05:44 135/82 07/03/18 04:00 60 07/03/18 04:00 98.2 59 18 135/82 (99) 97 07/03/18 00:00 64 07/03/18 00:00 97.8 63 18 133/53 (79) 96 07/03/18 00:00 133/53 07/02/18 21:00 Room Air 07/02/18 20:00 69 07/02/18 20:00 97.9 74 18 114/65 (81) 99 07/02/18 17:01 96.4 66 22 139/68 (91) 99 07/02/18 17:01 Room Air 07/02/18 16:37 98.3 69 13 129/77 100 Room Air 07/02/18 16:37 98.3 69 12 129/77 100 Room Air 07/02/18 15:00 98.3 64 12 136/82 100 Room Air Intake and Output 07/02/18 07/03/18 18:59 06:59 Intake Total 110 ml Output Total 1 ml Balance 110 ml -1 ml Intake Oral 0 ml IV Total 110 ml Output Urine Total 1 ml # Voids 1 1 # Bowel Movements 1 2 Microbiology Date/Time Source Procedure Growth Status 07/02/18 15:50 Abdomen Gram Stain - Final Resulted 07/02/18 15:50 Wound Culture - Preliminary Gram Negative Bacillus 1 Resulted Laboratory Tests 07/03/18 06:50: White Blood Count 8.4, Red Blood Count 4.57L, Hemoglobin 14.0L, Hematocrit 42.8 , Mean Corpuscular Volume 93, Mean Corpuscular Hemoglobin 30.6, Mean Corpuscular Hemoglobin Concent 32.7, Red Cell Distribution Width 13.0, Platelet Count 238, Mean Platelet Volume 6.2L, Neutrophils (%) (Auto) 63.2, Lymphocytes ( %) (Auto) 27.5, Monocytes (%) (Auto) 7.0, Eosinophils (%) (Auto) 1.9, Basophils (%) (Auto) 0.5, Sodium Level 138, Potassium Level 4.2, Chloride Level 103, Carbon Dioxide Level 28, Anion Gap 7, Blood Urea Nitrogen 22H, Creatinine 0.9, Estimat Glomerular Filtration Rate , Glucose Level 111#H, Calcium Level 9.9, Phosphorus Level 3.4, Magnesium Level 2.0, Total Bilirubin 0.5, Aspartate Amino Transf (AST/SGOT) 36, Alanine Aminotransferase (ALT/SGPT) 22, Alkaline Phosphatase 203H, Total Protein 7.2, Albumin 2.3L, Globulin 4.9, Albumin/ Globulin Ratio 0.5L, Lipase 189, Alpha Fetoprotein [Pending], Carcinoembryonic Antigen [Pending] Current Medications Medications (Trade) Dose Ordered Sig/Reagan Route PRN Reason Start Time Stop Time Status Last Admin Dose Admin Atorvastatin Calcium (Lipitor) 10 mg BEDTIME GT 07/02/18 21:00 08/01/18 20:59 07/02/18 22:11 Cefazolin Sodium 1 gm/Dextrose 55 ml @ 110 mls/hr Q8HR IVPB 07/02/18 22:00 07/09/18 21:59 07/03/18 05:40 Dextrose (Dextrose 50%) 25 ml Q30M PRN IV Hypoglycemia 07/02/18 20:30 08/01/18 20:29 Dextrose (Dextrose 50%) 50 ml Q30M PRN IV Hypoglycemia 07/02/18 20:30 08/01/18 20:29 Docusate Sodium (Colace) 100 mg TID GT 07/02/18 18:00 08/01/18 17:59 07/03/18 09:35 Donepezil HCl (Aricept) 10 mg QHS GT 07/02/18 21:00 08/01/18 20:59 07/02/18 22:10 Hydralazine HCl (Apresoline) 50 mg EVERY 6 HOURS ORAL 07/03/18 00:00 08/02/18 00:00 07/03/18 05:44 Insulin Aspart (NovoLOG) Q6HR SUBQ 07/03/18 06:00 08/01/18 20:59 Lansoprazole (Prevacid) 30 mg DAILY GT 07/03/18 09:00 08/02/18 08:59 07/03/18 09:34 Levothyroxine Sodium (Synthroid) 50 mcg ACBREAKFAST GT 07/03/18 06:30 08/02/18 06:29 07/03/18 05:44 Losartan Potassium (Cozaar) 100 mg DAILY GT 07/03/18 09:00 08/02/18 08:59 07/03/18 09:34 Metformin HCl (Glucophage) 500 mg TWICE A DAY GT 07/03/18 09:00 08/02/18 08:59 07/03/18 09:34 Metoprolol Tartrate (Lopressor) 50 mg Q12HR GT 07/03/18 09:00 08/02/18 08:59 07/03/18 09:34 Mineral Oil (Mineral Oil) 30 ml DAILYPRN PRN GT Constipation 07/02/18 14:30 08/01/18 14:29 Polyethylene Glycol (Miralax) 17 gm BEDTIME GT 07/02/18 21:00 08/01/18 20:59 07/02/18 22:10 Sitagliptin Phosphate (Januvia) 100 mg DAILY GT 07/03/18 09:00 08/02/18 08:59 07/03/18 09:34 Vitamin D (Vitamin D) 1,000 intlu TWICE A DAY ORAL 07/03/18 09:00 08/02/18 08:59 07/03/18 09:33 Marcellus Castillo MD July 03, 2018 13:27
--- NOTE | 2018-07-03 14:03 | NUR ---
SWALLOW/SPEECH THERAPY NOTE: REFERRED BY DR HERNANDEZ FOR A SWALLOW EVAL (DR ALEXYS AUGUSTE), SEE REPORT. DYSPHAGIA RISK FACTORS FOR THIS 77 Y.O. GREEK-SPEAKING ([facility]) MALE: ACUTE GT INFECTION, LIVER MASS, LUNG BASAL ATELECTASIS AND FIBROSIS, TRACTION BRONCHIECTASIS. ON PREVACID FOR GERD (30MG) H/O DYSPHAGIA, MALNUTRITION, WT LOSS, FTT, DEHYDRATION, CARDIAC, PACEMENAKER, CHF, MDD, HTN, HYPOTHYROID, DM2, COPD. POLST STATES OK TF PATIENT HAS HAD PEG SINCE 02/2017 (REGISTER OF WILLS DID NOT SEE PT) PER CHART AT SNF ON A PUREED AND THIN LIQUID DIET WITH SUPPLEMENTS. WAS GETTING PROSTAT 30 ML VIA GT. PER RN WAS GETTING GLUCERNA FORMULA. PER FAMILY, PATIENT EATING EVERYTHING AT SNF AND NOT GETTING FOOD/LIQUIDS THROUGH GT. PER DIETITIAN NOTES IN 02/2017, PT WAS GETTING PUREED AND THIN LIQUIDS FOR ORAL GRAT AND MOSTLY TUBE FEEDINGS. CURRENTLY, PT IS NOT GETTING PO AND THERE ARE ORDERS FOR TUBE FEEDINGS. PER RN, FAMILY WANTS TO BRING IN [place] FOODS OF PREFERENCE LIKE CHICKEN. PATIENT ALERT AND ABLE TO EXPRESS BASIC NEEDS BUT DOES NOT LIKE MANY LIQUIDS/FOODS (DISLIKES WATER AND PUDDING/APPLESAUCE). INITIAL IMPRESSIONS: S/S OF AT LEAST A MILD ORAL PREP AND OROPHARYNGEAL DYSPHAGIA WITH MILDLY INCREASED OVERALL TRANSIT TIMES. GROSSLY FUNCTIONAL TONGUE FOR ROM BUT SLOWER SPEED AND HAS LEFT LIP WEAKNESS WITH ORAL SPILLAGE ON LEFT WITH CUP. VOICE SOFT BUT CLEAR, FAIR VOLITIONAL COUGH ON ROOM AIR NOW. GROSSLY FUNCTIONAL SWALLOW WITH THIN LIQUIDS VIA CUP ONE SIP AT A TIME WITH FAIR HYOLARYNGEAL EXCURSION AND W/O OVER ASPIRATION REFUSED NECTAR THICK LIQUID TRIALS. PUREED TSP INITIALLY REFUSED BOTH PUDDING AND APPLESAUCE BUT LATER ACCEPTED PUDDING. MILDLY SLOWER OROPHARYGEAL TRANSIT TIMES BUT GROSSLY FUNCTIONAL SWALLOW W/O OVERT ASP NOR ORAL RESIDUE. REFUSED MASTICATED SOLID AND SAID HE WAS NOT HUNGRY. HAS UPPER AND LOWER FULL DENTURES RECOMMENDATIONS: CONSIDER CONTINUE WITH PEG FEEDINGS PRIMARY MODE OF NUTRITION/HYDRATION AND GIVE ORAL GRAT OF PUREED AND THIN LIQUIDS (HALF PORTIONS) WITH POSTED ASP AND REFLUX PRECAUTIONS AND ASSIST WITH MEALS. CONSIDER ALLOWING FAMILY FOODS OF PREFERENCE IF PUREED. IF MASTICATED SOLIDS OR CHEWABLE FOODS CALL REGISTER OF WILLS TO OBSERVE IF POSSIBLE. MOD BARIUM SWALLOW STUDY TO FURTHER ASSESS SWALLOW, DETERMINE SILENT ASP RISK, AND ATTEMPT TRIAL TX TECHNIQUES. (MAY REFUSE BARIUM SO DO IP OR OP IF DC AND DO NOT HOLD UP D/C FOR THIS STUDY). DYSPHAGIA MANAGEMENT AND TX (SEE REPORT FOR GOALS) RD REGARDING DIET TYPE (ISMAEL SHEN TO F/UP WITH ENTERING DIET ORDERS AND CALLING MD FOR TUBE FEEDINGS TO START). D/W DR HERNANDEZ AND GABINO FROM GI WHO AGREED WITH RECOMMENDATIONS TO KEEP PEG AT THIS TIME GIVEN H/O POOR OR SELECTIVE INTAKE (ADULT FTT). EDUCATED/TRAINED RN IN POSTED ASP/REFLUX PRECAUTIONS. Addendum: 07/03/18 at 1407 by ANI ESPINOZA REGISTER OF WILLS HAS ALZHEIMER'S DZ DEMENTIA AND IS AT RISK FOR SILENT ASPIRATION. ADVANCED AGE ALSO A DYSPHAGIA RISK FACTOR.
--- NOTE | 2018-07-03 14:15 | NUR ---
CASE MANAGEMENT:REVIEW 77 YR OLD MALE BIBA FROM [facility] CC: MALFUNCTIONING G-TUBE SI: G-TUBE CELLULITIS LIVER MASS. PANCREATITIS 96.5 61 16 116/69 94% ON RA GLUCOSE+227 LIPASE+645 IS: IV ZOSYN WOUND CULTURE CT ABD/PELVIS BLOOD CX : TO TELEMETRY INTERQUAL CRITERIA MET
--- NOTE | 2018-07-03 15:17 | NUR ---
RD ASSESSMENT & RECOMMENDATIONS SEE CARE ACTIVITY FOR COMPLETE ASSESSMENT DAILY ESTIMATED NEEDS: Needs based on DM/ 67kg 25-30 kcals/kg total kcals 1-1.5 g protein/kg 67-100 g total protein 25-30 mL/kg total fluid mLs NUTRITION DIAGNOSIS: Swallowing difficulty R/T dysphagia as evidenced by pt w/ GT, was on texture modified diet and meds given via GT DORR OPERATOR, currently NPO. CURRENT DIET:NPO ENTERAL NUTRITION RECOMMENDATIONS: Glucerna 1.2 @ 65ml/hr x 22 hrs to provide 1430ml, 1716kcal, 85g prot, 1151ml free water * As medically appropriate, initiate Glucerna 1.2 @ 15ml/hr x 6hrs. * Advance by 10ml/hr every 4-6 hours to goal rate of 65ml/hr x 22hrs (HOLD ONE HR BEFORE AND AFTER SYNTHROID MEDS) * HOB >30 degrees, H2O flushes per MD * At goal, TF provides 100% of est. kcal & prot needs ADDITIONAL RECOMMENDATIONS: 1) TXR TO BED WITH BEDSCALE AND OBTAIN CALIBRATED BEDSCALE : Per SNF, jx=[id number] (obtained 06/03/18) 2) Monitor for oral diet, PO acceptance and tolerance, need to adjust TF rec 3) Initiate TF as medically appropriate, rec as above 4) Monitor lytes, replete as needed 5) F/up with wound care eval: sacral redness per photo
--- NOTE | 2018-07-03 15:49 | Physician Query ---
--------- THIS DOCUMENT IS A PERMANENT PART OF THE MEDICAL RECORD --------- PLEASE COMPLETE DOCUMENT BEFORE SIGNING Dear Mr. Melo Samuel Date: 07/03/18 Plant Controller/CDS Name: Adriana Aguayo Exercise your independent professional judgment when responding to the query. Questions asked do not imply a particular answer is desired or expected. We greatly appreciate your clarification on this issue. CLINICAL DOCUMENTATION STATES:07/02 note: 77-year-old male brought in by basic ambulance after increased leakage from his G-tube stoma site. Patient had recently had a G-tube replacement. Patient was noted to have a 22 [place] Citizen G- tube. There is noted to be increased discomfort as well as Increased drainage from the stoma. Patient a prior history of diabetes. GI consulted for GT leakage/infection...Problems....Malnutrition RD note: NUTRITION DIAGNOSIS: Swallowing difficulty R/T dysphagia as evidenced by pt w/ GT, was on texture modified diet and meds given via GT PATROL CAPTAIN, currently NPO. Treatment: Glucerna Please select the severity of malnutrition: [] Mild [] Moderate [] Severe [] Other - please specify [] Unknown Condition Present on Admission: [] Yes [] No [ ] Unable to determine Please also document in your Progress Notes and/or Discharge Summary and indicate if the condition was present on admission. ___ Signature Date MTDD
[2018-07-03 16:00] VITALS: BP 138/93
--- NOTE | 2018-07-03 18:30 | NUR ---
NURSE NOTES: bladder scan was done. resulted to zero ml. will endorse accordingly.
--- NOTE | 2018-07-03 19:18 | NUR ---
NURSE NOTES: endorsed to lopez rn
--- NOTE | 2018-07-03 19:20 | NUR ---
NURSE NOTES: Received report from David Bartlett RN. Patient in bed with family at bedside with no complaints of acute pain or discomfort noted at this time. Kept clean, dry, and comfortable in bed at all times. IV line intact and patent SL. Placed on continuous cardiac monitoring per protocol. On GTF as ordered but placed on NPO status after MN for EGD procedure in the AM. Safety precaution in place; siderails X3 up, call light within reach, bed in lowest position, breaks and alarm on at all times. needs and wants anticipated and attended, will continue plan of care and monitor for any changes noted.
[2018-07-03 20:00] VITALS: BP 136/79
[2018-07-03] MEDS: Miralax 17gm pkt GT SCH (22:15)
[2018-07-03] MEDS: Donepezil 10mg tab GT SCH (22:15)
--- NOTE | 2018-07-03 22:28 | Surgery Progress Note ---
Surgery Progress Note Subjective Additional Comments no acute events. labs okay. start tube feeds. DATA PROCESSING MECHANIC notes noted. Objective Last 24 Hour Vital Signs Date Time Temp Pulse Resp B/P (MAP) Pulse Ox O2 Delivery O2 Flow Rate FiO2 07/03/18 22:16 65 136/79 07/03/18 17:45 138/93 07/03/18 16:00 98.1 91 20 138/93 (108) 100 07/03/18 16:00 59 07/03/18 12:00 97.2 62 20 119/52 (74) 96 07/03/18 12:00 60 07/03/18 12:00 119/52 07/03/18 09:34 96 115/50 07/03/18 09:34 115/50 07/03/18 09:00 Room Air 07/03/18 08:00 63 07/03/18 08:00 97.5 96 21 115/50 (71) 98 07/03/18 05:44 135/82 07/03/18 04:00 60 07/03/18 04:00 98.2 59 18 135/82 (99) 97 07/03/18 00:00 64 07/03/18 00:00 97.8 63 18 133/53 (79) 96 07/03/18 00:00 133/53 I&O Intake and Output 07/02/18 07/03/18 19:00 07:00 Intake Total 110 ml Output Total 1 ml Balance 110 ml -1 ml Intake Oral 0 ml IV Total 110 ml Output Urine Total 1 ml # Voids 1 1 # Bowel Movements 1 2 Dressing: dry Wound: clean Drains: other Cardiovascular: RSR Respiratory: decreased breath sounds Abdomen: soft, present bowel sounds, non-distended Extremities: no tenderness, no cyanosis Laboratory Tests Test 07/03/18 06:50 White Blood Count 8.4 K/UL (4.8-10.8) Red Blood Count 4.57 M/UL (4.70-6.10) L Hemoglobin 14.0 G/DL (14.2-18.0) L Hematocrit 42.8 % (42.0-52.0) Mean Corpuscular Volume 93 FL (80-99) Mean Corpuscular Hemoglobin 30.6 PG (27.0-31.0) Mean Corpuscular Hemoglobin Concent 32.7 G/DL (32.0-36.0) Red Cell Distribution Width 13.0 % (11.6-14.8) Platelet Count 238 K/UL (150-450) Mean Platelet Volume 6.2 FL (6.5-10.1) L Neutrophils (%) (Auto) 63.2 % (45.0-75.0) Lymphocytes (%) (Auto) 27.5 % (20.0-45.0) Monocytes (%) (Auto) 7.0 % (1.0-10.0) Eosinophils (%) (Auto) 1.9 % (0.0-3.0) Basophils (%) (Auto) 0.5 % (0.0-2.0) Sodium Level 138 MMOL/L (136-145) Potassium Level 4.2 MMOL/L (3.5-5.1) Chloride Level 103 MMOL/L (98-107) Carbon Dioxide Level 28 MMOL/L (21-32) Anion Gap 7 mmol/L (5-15) Blood Urea Nitrogen 22 mg/dL (7-18) H Creatinine 0.9 MG/DL (0.55-1.30) Estimat Glomerular Filtration Rate mL/min (>60) Glucose Level 111 MG/DL (74-106) #H Calcium Level 9.9 MG/DL (8.5-10.1) Phosphorus Level 3.4 MG/DL (2.5-4.9) Magnesium Level 2.0 MG/DL (1.8-2.4) Total Bilirubin 0.5 MG/DL (0.2-1.0) Aspartate Amino Transf (AST/SGOT) 36 U/L (15-37) Alanine Aminotransferase (ALT/SGPT) 22 U/L (12-78) Alkaline Phosphatase 203 U/L (46-116) H Total Protein 7.2 G/DL (6.4-8.2) Albumin 2.3 G/DL (3.4-5.0) L Globulin 4.9 g/dL Albumin/Globulin Ratio 0.5 (1.0-2.7) L Lipase 189 U/L (73-393) Alpha Fetoprotein Pending Carcinoembryonic Antigen Pending Plan Problems: (1) Malnutrition Assessment & Plan: tube feeds ordered. DATA PROCESSING MECHANIC notes noted. dysphagia and recommend tube feds (2) Dehydration (3) CVA (cerebral vascular accident) (4) LFT elevation (5) Liver mass (6) G-tube site cellulitis (7) Pancreatitis Assessment & Plan: acute pancreatitis etiology unknown no etoh history lipase resolved. US noted. can work up mass as outpatient d/c planning (8) Atrial fibrillation and flutter (9) CHF (congestive heart failure) (10) Syncope (11) ACS (acute coronary syndrome) (12) Episode of generalized weakness (13) Skin infection at gastrostomy tube site Assessment & Plan: local wound care no abscess no surgical intervention needed at this time will monitor thank you (14) Skin infection at gastrostomy tube site Jesse Cash July 03, 2018 22:28
[2018-07-04] VITALS: BP 129/58
--- NOTE | 2018-07-04 | NUR ---
NURSE NOTES: Patient placed on NPO status for scheduled EGD today. Will continue to monitor
[2018-07-04] MEDS: HydrALAZINE 50mg tab ORAL SCH ×4 (01:06→17:54)
--- NOTE | 2018-07-04 03:20 | NUR ---
NURSE NOTES: Patient in bed with no S/S of distress at this time. Will continue monitor for any changes noted
[2018-07-04 04:00] VITALS: BP 123/48
[2018-07-04 05:33] LABS: BASOPHILS % (AUTO) 0.7 % (0.0-2.0); EOSINOPHILS % (AUTO) 2.2 % (0.0-3.0); HEMATOCRIT 41.5 % (42.0-52.0); HEMOGLOBIN 13.8 G/DL (14.2-18.0); MEAN CORPUSCULAR VOLUME 93 FL (80-99); NEUTROPHILS % (AUTO) 61.1 % (45.0-75.0); PLATELET COUNT 245 K/UL (150-450); RED BLOOD COUNT 4.48 M/UL (4.70-6.10); RED CELL DISTRIBUTION WIDTH 12.7 % (11.6-14.8); WHITE BLOOD COUNT 7.1 K/UL (4.8-10.8)
[2018-07-04 05:48] LABS: ANION GAP 5 mmol/L (5-15); BLOOD UREA NITROGEN 23 mg/dL (7-18); CALCIUM 9.8 MG/DL (8.5-10.1); CARBON DIOXIDE 29 MMOL/L (21-32); CHLORIDE 104 MMOL/L (98-107); CREATININE 0.8 MG/DL (0.55-1.30); POTASSIUM 4.1 MMOL/L (3.5-5.1); SODIUM 138 MMOL/L (136-145)
[2018-07-04] MEDS: ceFAZolin 1gm in D5W 55ml IVPB SCH ×3 (05:58→21:13)
[2018-07-04] MEDS: NovoLOG Insulin Flexpen SUBQ SCH ×4 (06:00→17:39)
--- NOTE | 2018-07-04 06:00 | NUR ---
NURSE NOTES: Insulin held d/t pt being on NPO status since midnight prior to EGD procedure. BS 125
--- NOTE | 2018-07-04 07:20 | NUR ---
NURSE NOTES: RECEIVED PT WITH HOB ELEVATED 45 DEGREE AWAKE AND ALERT [place] SPEAKING ONLY .PT IS NPO, ON SCHEDULE FOR EGD AND POSSIBLE GT/JT PLACEMENT BY DR MELCHOR.HELD ALL AM PO MED,S AT THIS TIME.FULL BODY ASSESSMENT DONE.WILL CONT TO MONITOR.
--- NOTE | 2018-07-04 07:47 | NUR ---
NURSE NOTES: Received new order from MD Janet. for EGD with biopsy and possible GT/JT placement. Spoke with Silver and Marie from GI lab regarding possible procedure. Notified Carolina (daughter), regarding new procedure to be done today. Stated that she will come before noon today to speak with the GI lab and MD regarding new procedure. Informed consent endorsed to AM shift, will ask daughter if she agrees to commit to it or not. Will continue to monitor.
--- NOTE | 2018-07-04 07:53 | NUR ---
HAND-OFF: Report given to Stephane Covington RN. patient in stable condition, endorsed plan of care.
[2018-07-04 08:00] VITALS: BP 137/67
--- NOTE | 2018-07-04 08:21 | General Progress Note ---
Assessment/Plan Status: unchanged Assessment/Plan: IMPRESSION gt site infection aspiration OBS chronic encephalopathy diabetes hypertension PLAN antibiotics noted surgical evaluation noted GI evaluation await clearance ID evaluation care reviewed and discussed will follow up for dc to snf when able impression, plan, and exam edited and reviewed in detail care discussed with RN Subjective Allergies: Coded Allergies: No Known Allergies (Verified , 06/07/08) Subjective care noted all appreciated Objective Last 24 Hour Vital Signs Date Time Temp Pulse Resp B/P (MAP) Pulse Ox O2 Delivery O2 Flow Rate FiO2 07/04/18 05:58 123/48 07/04/18 04:00 97.4 60 22 123/48 (73) 97 07/04/18 04:00 62 07/04/18 01:06 129/58 07/04/18 00:00 97.2 60 20 129/58 (81) 97 07/04/18 00:00 60 07/03/18 22:16 65 136/79 07/03/18 21:00 Room Air 07/03/18 20:00 60 07/03/18 20:00 97.9 65 19 136/79 (98) 100 07/03/18 17:45 138/93 07/03/18 16:00 98.1 91 20 138/93 (108) 100 07/03/18 16:00 59 07/03/18 12:00 97.2 62 20 119/52 (74) 96 07/03/18 12:00 60 07/03/18 12:00 119/52 07/03/18 09:34 96 115/50 07/03/18 09:34 115/50 07/03/18 09:00 Room Air Intake and Output 07/03/18 07/04/18 19:00 07:00 Intake Total 575 ml Output Total 1 ml Balance 574 ml Intake Oral 350 ml Free Water 55 ml IV Total 110 ml Tube Feeding 60 ml Output Urine Total 1 ml # Voids 1 # Bowel Movements 1 3 Laboratory Tests 07/04/18 00:00: Stool Occult Blood [Pending] 07/04/18 04:49: White Blood Count 7.1, Red Blood Count 4.48L, Hemoglobin 13.8L, Hematocrit 41.5L , Mean Corpuscular Volume 93, Mean Corpuscular Hemoglobin 30.7, Mean Corpuscular Hemoglobin Concent 33.1, Red Cell Distribution Width 12.7, Platelet Count 245, Mean Platelet Volume 6.3L, Neutrophils (%) (Auto) 61.1, Lymphocytes ( %) (Auto) 27.0, Monocytes (%) (Auto) 9.0, Eosinophils (%) (Auto) 2.2, Basophils (%) (Auto) 0.7, Prothrombin Time 10.1, Prothromb Time International Ratio 1.0, Activated Partial Thromboplast Time 31, Sodium Level 138, Potassium Level 4.1, Chloride Level 104, Carbon Dioxide Level 29, Anion Gap 5, Blood Urea Nitrogen 23H, Creatinine 0.8, Estimat Glomerular Filtration Rate , Glucose Level 117H, Calcium Level 9.8 Height (Feet): 5 Height (Inches): 6.00 Weight (Pounds): 159 Objective WDWN NAD clear breath sounds bilaterally without rhonchi or wheeze [id number] without MRG NABS nontender no HSM; GT no CCE confused Dustin Mary MD July 04, 2018 08:21
[2018-07-04] MEDS: Docusate 100mg/10ml Liq GT SCH ×3 (09:00→17:54)
[2018-07-04] MEDS: Losartan 50mg tab GT SCH (09:00)
[2018-07-04] MEDS: Metoprolol Tartrate 50mg tab GT SCH ×2 (09:00→21:14)
[2018-07-04] MEDS: Vitamin D 1000 IU Tab ORAL SCH ×2 (09:00→17:54)
[2018-07-04] MEDS: metFORMIN 500mg tab GT SCH ×2 (09:00→17:54)
--- NOTE | 2018-07-04 10:09 | Anethesia Preoperative Eval ---
Anesthesia Pre-op PMH/ROS General Date of Evaluation: July 04, 2018 Anesthesiologist: Alfreod ASA Score: ASA 3 Mallampati Score Class I : Soft palate, uvula, fauces, pillars visible Class II: Soft palate, uvula, fauces visible Class III: Soft palate, base of uvula visible Class IV: Only hard plate visible Mallampati Classification: Class II Surgeon: Janet Diagnosis: G tube infection Surgical Procedure: PEG and change of g tube to gj tube Family History: no anesthesia problems Allergies: Coded Allergies: No Known Allergies (Verified , 06/07/08) Medications: see eMAR Patient NPO?: Yes NPO Date: July 03, 2018 NPO Time: 00:00 Past Medical History Cardiovascular: Reports: HTN, CAD, arrhythmia - afib s/p pacemaker, other - CHF ; Denies: OK, valve dz Pulmonary: Denies: asthma, COPD, MARCELLE, other Gastrointestinal/Genitourinary: Reports: other - BPH, dysphagia; Denies: GERD, CRI, ESRD Neurologic/Psychiatric: Reports: dementia - alzheimers, depression/anxiety; Denies: CVA, TIA, other Endocrine: Reports: DM, hypothyroidism; Denies: steroids, other HEENT: Denies: cataract (L), cataract (R), glaucoma, ABSENTEE-SHAWNEE (L), ABSENTEE-SHAWNEE (R), other Hematology/Immune: Denies: anemia, DVT, bleeding disorder, other Musculoskeletal/Integumentary: Reports: OA; Denies: RA, DJD, DDD, edema, other PSxH Narrative: pacemaker, g-tube, adenoidectomy Anesthesia Pre-op Phys. Exam Physician Exam Last Vital Signs Date Time Temp Pulse Resp B/P (MAP) Pulse Ox O2 Delivery O2 Flow Rate FiO2 07/04/18 09:00 59 137/67 07/04/18 08:00 97.7 20 92 07/03/18 21:00 Room Air Constitutional: NAD Cardiovascular: RRR Respiratory: CTA Airway Exam Mallampati Score: Class II MO: limited ROM: limited Anesthesia Pre-op A/P Labs Hematology Test 07/04/18 04:49 White Blood Count 7.1 K/UL (4.8-10.8) Red Blood Count 4.48 M/UL (4.70-6.10) L Hemoglobin 13.8 G/DL (14.2-18.0) L Hematocrit 41.5 % (42.0-52.0) L Mean Corpuscular Volume 93 FL (80-99) Mean Corpuscular Hemoglobin 30.7 PG (27.0-31.0) Mean Corpuscular Hemoglobin Concent 33.1 G/DL (32.0-36.0) Red Cell Distribution Width 12.7 % (11.6-14.8) Platelet Count 245 K/UL (150-450) Mean Platelet Volume 6.3 FL (6.5-10.1) L Neutrophils (%) (Auto) 61.1 % (45.0-75.0) Lymphocytes (%) (Auto) 27.0 % (20.0-45.0) Monocytes (%) (Auto) 9.0 % (1.0-10.0) Eosinophils (%) (Auto) 2.2 % (0.0-3.0) Basophils (%) (Auto) 0.7 % (0.0-2.0) Coagulation Test 07/04/18 04:49 Prothrombin Time 10.1 SEC (9.30-11.50) Prothromb Time International Ratio 1.0 (0.9-1.1) Activated Partial Thromboplast Time 31 SEC (23-33) Chemistry Test 07/04/18 04:49 Sodium Level 138 MMOL/L (136-145) Potassium Level 4.1 MMOL/L (3.5-5.1) Chloride Level 104 MMOL/L (98-107) Carbon Dioxide Level 29 MMOL/L (21-32) Anion Gap 5 mmol/L (5-15) Blood Urea Nitrogen 23 mg/dL (7-18) H Creatinine 0.8 MG/DL (0.55-1.30) Estimat Glomerular Filtration Rate mL/min (>60) Glucose Level 117 MG/DL (74-106) H Calcium Level 9.8 MG/DL (8.5-10.1) Studies Pre-op Studies: EKG - sr Risk Assessment & Plan Assessment: ASA III Plan: MAC Status Change Before Surgery: No Pre-Antibiotics Drug: Ancef 1g Given Within 1 Hr of Incision: Johnna Reyes MD July 04, 2018 10:09
--- NOTE | 2018-07-04 11:27 | GI Progress Note ---
Assessment/Plan Problems: (1) Skin infection at gastrostomy tube site ICD Codes: K94.22 - Skin infection at gastrostomy tube site; L08.9 - Local infection of the skin and subcutaneous tissue, unspecified SNOMED: 692006969 (2) Liver mass ICD Codes: R16.0 - Hepatomegaly, not elsewhere classified SNOMED: 289658774 (3) Dehydration ICD Codes: E86.0 - Dehydration SNOMED: 36699415 (4) CVA (cerebral vascular accident) ICD Codes: I63.9 - CVA (cerebral vascular accident) SNOMED: 175830299 (5) G-tube site cellulitis ICD Codes: K94.22 - Gastrostomy infection; L03.319 - Cellulitis of trunk, unspecified SNOMED: 000002416, 578670976 Status: stable, unchanged Status Narrative Discussed with Dr. Gonzales. Assessment/Plan CTAP 10cm mass noted on the liver. Wound culture negative around GT site Pancreatitis, now resolved GJ cancelled, follow up with video swallow for possible GT removal, per daughter patient has been eating 100%. advance to regular puree diet calorie count OB stool r/o GI bleed bowel regime follow labs fu oncology The patient was seen and examined at bedside and all new and available data was reviewed in the patients chart. I agree with the above findings, impression and plan. (Patient seen earlier today. Signature stamp does not reflect patient encounter time.). - Demetris Gonzales MD Subjective Subjective Patient complained of severe tenderness and pain at the G-tube site Objective Last 24 Hour Vital Signs Date Time Temp Pulse Resp B/P (MAP) Pulse Ox O2 Delivery O2 Flow Rate FiO2 07/04/18 09:00 59 137/67 07/04/18 09:00 137/67 07/04/18 08:00 97.7 59 20 137/67 (90) 92 07/04/18 05:58 123/48 07/04/18 04:00 97.4 60 22 123/48 (73) 97 07/04/18 04:00 62 07/04/18 01:06 129/58 07/04/18 00:00 97.2 60 20 129/58 (81) 97 07/04/18 00:00 60 07/03/18 22:16 65 136/79 07/03/18 21:00 Room Air 07/03/18 20:00 60 07/03/18 20:00 97.9 65 19 136/79 (98) 100 07/03/18 17:45 138/93 07/03/18 16:00 98.1 91 20 138/93 (108) 100 07/03/18 16:00 59 07/03/18 12:00 97.2 62 20 119/52 (74) 96 07/03/18 12:00 60 07/03/18 12:00 119/52 Intake and Output 07/03/18 07/04/18 19:00 07:00 Intake Total 575 ml Output Total 1 ml Balance 574 ml Intake Oral 350 ml Free Water 55 ml IV Total 110 ml Tube Feeding 60 ml Output Urine Total 1 ml # Voids 1 # Bowel Movements 1 3 Laboratory Tests Test 07/04/18 00:00 07/04/18 04:49 Stool Occult Blood Pending White Blood Count 7.1 K/UL (4.8-10.8) Red Blood Count 4.48 M/UL (4.70-6.10) L Hemoglobin 13.8 G/DL (14.2-18.0) L Hematocrit 41.5 % (42.0-52.0) L Mean Corpuscular Volume 93 FL (80-99) Mean Corpuscular Hemoglobin 30.7 PG (27.0-31.0) Mean Corpuscular Hemoglobin Concent 33.1 G/DL (32.0-36.0) Red Cell Distribution Width 12.7 % (11.6-14.8) Platelet Count 245 K/UL (150-450) Mean Platelet Volume 6.3 FL (6.5-10.1) L Neutrophils (%) (Auto) 61.1 % (45.0-75.0) Lymphocytes (%) (Auto) 27.0 % (20.0-45.0) Monocytes (%) (Auto) 9.0 % (1.0-10.0) Eosinophils (%) (Auto) 2.2 % (0.0-3.0) Basophils (%) (Auto) 0.7 % (0.0-2.0) Prothrombin Time 10.1 SEC (9.30-11.50) Prothromb Time International Ratio 1.0 (0.9-1.1) Activated Partial Thromboplast Time 31 SEC (23-33) Sodium Level 138 MMOL/L (136-145) Potassium Level 4.1 MMOL/L (3.5-5.1) Chloride Level 104 MMOL/L (98-107) Carbon Dioxide Level 29 MMOL/L (21-32) Anion Gap 5 mmol/L (5-15) Blood Urea Nitrogen 23 mg/dL (7-18) H Creatinine 0.8 MG/DL (0.55-1.30) Estimat Glomerular Filtration Rate mL/min (>60) Glucose Level 117 MG/DL (74-106) H Calcium Level 9.8 MG/DL (8.5-10.1) Height (Feet): 5 Height (Inches): 6.00 Weight (Pounds): 159 General Appearance: WD/WN, no apparent distress, alert Cardiovascular: normal rate Respiratory/Chest: normal breath sounds, no respiratory distress Abdominal Exam: normal bowel sounds, non tender, soft, GT site - site leak Extremities: non-tender Michelle Samuel NP July 04, 2018 11:27
[2018-07-04 12:00] VITALS: BP 140/53
--- NOTE | 2018-07-04 13:16 | Surgery Progress Note ---
Surgery Progress Note Subjective Additional Comments no acute events. seemingly comfortable. exam stable. feeding tube in place. off feeds currently pending study Objective Last 24 Hour Vital Signs Date Time Temp Pulse Resp B/P (MAP) Pulse Ox O2 Delivery O2 Flow Rate FiO2 07/04/18 12:00 140/53 07/04/18 12:00 97.0 60 21 140/53 (82) 97 07/04/18 09:00 59 137/67 07/04/18 09:00 137/67 07/04/18 09:00 Room Air 07/04/18 08:00 97.7 59 20 137/67 (90) 92 07/04/18 08:00 61 07/04/18 05:58 123/48 07/04/18 04:00 97.4 60 22 123/48 (73) 97 07/04/18 04:00 62 07/04/18 01:06 129/58 07/04/18 00:00 97.2 60 20 129/58 (81) 97 07/04/18 00:00 60 07/03/18 22:16 65 136/79 07/03/18 21:00 Room Air 07/03/18 20:00 60 07/03/18 20:00 97.9 65 19 136/79 (98) 100 07/03/18 17:45 138/93 07/03/18 16:00 98.1 91 20 138/93 (108) 100 07/03/18 16:00 59 I&O Intake and Output 07/03/18 07/04/18 18:59 06:59 Intake Total 540 ml 35 ml Output Total 1 ml Balance 539 ml 35 ml Intake Oral 350 ml Free Water 35 ml 20 ml IV Total 110 ml Tube Feeding 45 ml 15 ml Output Urine Total 1 ml # Voids 1 # Bowel Movements 1 3 Laboratory Tests Test 07/04/18 00:00 07/04/18 04:49 Stool Occult Blood Negative (NEGATIVE) White Blood Count 7.1 K/UL (4.8-10.8) Red Blood Count 4.48 M/UL (4.70-6.10) L Hemoglobin 13.8 G/DL (14.2-18.0) L Hematocrit 41.5 % (42.0-52.0) L Mean Corpuscular Volume 93 FL (80-99) Mean Corpuscular Hemoglobin 30.7 PG (27.0-31.0) Mean Corpuscular Hemoglobin Concent 33.1 G/DL (32.0-36.0) Red Cell Distribution Width 12.7 % (11.6-14.8) Platelet Count 245 K/UL (150-450) Mean Platelet Volume 6.3 FL (6.5-10.1) L Neutrophils (%) (Auto) 61.1 % (45.0-75.0) Lymphocytes (%) (Auto) 27.0 % (20.0-45.0) Monocytes (%) (Auto) 9.0 % (1.0-10.0) Eosinophils (%) (Auto) 2.2 % (0.0-3.0) Basophils (%) (Auto) 0.7 % (0.0-2.0) Prothrombin Time 10.1 SEC (9.30-11.50) Prothromb Time International Ratio 1.0 (0.9-1.1) Activated Partial Thromboplast Time 31 SEC (23-33) Sodium Level 138 MMOL/L (136-145) Potassium Level 4.1 MMOL/L (3.5-5.1) Chloride Level 104 MMOL/L (98-107) Carbon Dioxide Level 29 MMOL/L (21-32) Anion Gap 5 mmol/L (5-15) Blood Urea Nitrogen 23 mg/dL (7-18) H Creatinine 0.8 MG/DL (0.55-1.30) Estimat Glomerular Filtration Rate mL/min (>60) Glucose Level 117 MG/DL (74-106) H Calcium Level 9.8 MG/DL (8.5-10.1) Plan Problems: (1) Malnutrition Assessment & Plan: GJ cancelled by GI, follow up with video swallow for possible GT removal, per daughter patient has been eating 100% as per GI FIELD OPERATIONS SUPERVISOR: CONSIDER CONTINUE WITH PEG FEEDINGS PRIMARY MODE OF NUTRITION/HYDRATION AND GIVE ORAL GRAT OF PUREED AND THIN LIQUIDS (HALF PORTIONS) WITH POSTED ASP AND REFLUX PRECAUTIONS AND ASSIST WITH MEALS. CONSIDER ALLOWING FAMILY FOODS OF PREFERENCE IF PUREED. IF MASTICATED SOLIDS OR CHEWABLE FOODS CALL FIELD OPERATIONS SUPERVISOR TO OBSERVE IF POSSIBLE. Plan: Planning for video swallow to eval for oral intake safely and possible d/c g tube. will follow with recs thank you (2) Dehydration (3) CVA (cerebral vascular accident) (4) LFT elevation (5) Liver mass (6) G-tube site cellulitis (7) Pancreatitis Assessment & Plan: acute pancreatitis etiology unknown no etoh history lipase resolved. US noted. can work up mass as outpatient d/c planning (8) Atrial fibrillation and flutter (9) CHF (congestive heart failure) (10) Syncope (11) ACS (acute coronary syndrome) (12) Episode of generalized weakness (13) Skin infection at gastrostomy tube site Assessment & Plan: local wound care no abscess no surgical intervention needed at this time will monitor thank you (14) Skin infection at gastrostomy tube site Jesse Cash July 04, 2018 13:16
--- NOTE | 2018-07-04 14:32 | Cardiology Report ---
APPROVED REPORT EKG Measurement Heart [id number] Normal sinus rhythm with sinus arrhythmia Right bundle branch block Left anterior fascicular block Bifascicular block Minimal voltage criteria for LVH, may be normal variant Septal infarct, age undetermined T wave abnormality, consider inferior ischemia Abnormal ECG
--- NOTE | 2018-07-04 15:00 | NUR ---
NURSE NOTES:Hugo MELCHOR RE-SCHEDULE GI PROCEDURE UNTIL TOMORROW.PT DAUGHTER MADE AWARE AND NOTIFIED.PT DAUGHTER AT BED SIDE MOST OF THE TIME.ALL NEEDS ATTENDED AND ANTICIPATED.
[2018-07-04 16:00] VITALS: BP 115/64
--- NOTE | 2018-07-04 19:20 | NUR ---
NURSE NOTES: received pt in stable condition, no acute distress noted. safety precautions in place. bed locked and call light within reach. will round hourly to ensure pt's safety.
[2018-07-04 20:00] VITALS: BP 125/59
[2018-07-04] MEDS: Miralax 17gm pkt GT SCH (21:00)
[2018-07-04] MEDS: Donepezil 10mg tab GT SCH (21:13)
[2018-07-05] VITALS: BP 125/59
--- NOTE | 2018-07-05 | NUR ---
NURSE NOTES: pt sleeping. no s/s of acute distress. safety measures in place. will continue to monitor
[2018-07-05] MEDS: HydrALAZINE 50mg tab ORAL SCH ×4 (00:20→18:59)
[2018-07-05] MEDS: NovoLOG Insulin Flexpen SUBQ SCH ×4 (00:22→19:00)
[2018-07-05 04:00] VITALS: BP 131/60
[2018-07-05] MEDS: ceFAZolin 1gm in D5W 55ml IVPB SCH ×3 (05:40→21:00)
[2018-07-05 06:57] LABS: ANION GAP 7 mmol/L (5-15); BLOOD UREA NITROGEN 20 mg/dL (7-18); CALCIUM 9.8 MG/DL (8.5-10.1); CARBON DIOXIDE 28 MMOL/L (21-32); CHLORIDE 102 MMOL/L (98-107); CREATININE 0.8 MG/DL (0.55-1.30); POTASSIUM 4.2 MMOL/L (3.5-5.1); SODIUM 137 MMOL/L (136-145)
--- NOTE | 2018-07-05 06:57 | NUR ---
NURSE NOTES: pt remains stable, no acute distress or change in condition during my shift. safety precautions in place. bed locked and lowest position. call aid within reach. all needs met during my shift. will endorse care to incoming nurse.
[2018-07-05 07:08] LABS: BASOPHILS % (AUTO) 0.5 % (0.0-2.0); EOSINOPHILS % (AUTO) 0.9 % (0.0-3.0); HEMATOCRIT 41.4 % (42.0-52.0); HEMOGLOBIN 13.6 G/DL (14.2-18.0); LYMPHOCYTES % (AUTO) 19.2 % (20.0-45.0); MEAN CORPUSCULAR VOLUME 94 FL (80-99); MONOCYTES % (AUTO) 6.8 % (1.0-10.0); NEUTROPHILS % (AUTO) 72.7 % (45.0-75.0); PLATELET COUNT 239 K/UL (150-450); RED CELL DISTRIBUTION WIDTH 13.2 % (11.6-14.8); WHITE BLOOD COUNT 10.8 K/UL (4.8-10.8)
[2018-07-05 08:00] VITALS: BP 135/47
--- NOTE | 2018-07-05 08:09 | NUR ---
HAND-OFF: Report given to ISMAEL Marrero.
--- NOTE | 2018-07-05 08:10 | NUR ---
NURSE NOTES: received report from Sabrina GUEVARA. Pt in bed awake, on vehicle monitor technician no signs of distress at this time. Bed in lowest position and is locked. Call light within reach for pt. Will continue plan of care.
[2018-07-05] MEDS: Metoprolol Tartrate 50mg tab GT SCH ×2 (09:00→20:54)
--- NOTE | 2018-07-05 10:17 | GI Progress Note ---
Assessment/Plan Problems: (1) Skin infection at gastrostomy tube site ICD Codes: K94.22 - Skin infection at gastrostomy tube site; L08.9 - Local infection of the skin and subcutaneous tissue, unspecified SNOMED: 519646462 (2) Liver mass ICD Codes: R16.0 - Hepatomegaly, not elsewhere classified SNOMED: 447981289 (3) Dehydration ICD Codes: E86.0 - Dehydration SNOMED: 12431892 (4) CVA (cerebral vascular accident) ICD Codes: I63.9 - CVA (cerebral vascular accident) SNOMED: 062858208 (5) G-tube site cellulitis ICD Codes: K94.22 - Gastrostomy infection; L03.319 - Cellulitis of trunk, unspecified SNOMED: 396727424, 131949329 Status: unchanged Status Narrative Discussed with Dr. Gonzales. Assessment/Plan CTAP 10cm mass noted on the liver. Wound culture negative around GT site Pancreatitis, now resolved AFP WNL liver mass biopsy GJ cancelled, follow up with video swallow for possible GT removal, per daughter patient has been eating 100%. advance to regular puree diet calorie count OB stool r/o GI bleed bowel regime follow labs fu oncology The patient was seen and examined at bedside and all new and available data was reviewed in the patients chart. I agree with the above findings, impression and plan. (Patient seen earlier today. Signature stamp does not reflect patient encounter time.). - Demetris Gonzales MD Subjective Subjective Patient complained of severe tenderness and pain at the G-tube site Objective Last 24 Hour Vital Signs Date Time Temp Pulse Resp B/P (MAP) Pulse Ox O2 Delivery O2 Flow Rate FiO2 07/05/18 05:41 131/60 07/05/18 04:00 97.3 66 20 131/60 (83) 96 07/05/18 04:00 79 07/05/18 00:20 129/58 07/05/18 00:00 71 07/05/18 00:00 98.2 70 18 125/59 (81) 95 07/04/18 21:14 85 128/59 07/04/18 21:00 Room Air 07/04/18 20:00 83 07/04/18 20:00 97.3 85 18 125/59 (81) 97 07/04/18 17:54 115/64 07/04/18 16:00 97.2 76 22 115/64 (81) 97 07/04/18 16:00 72 07/04/18 12:00 71 07/04/18 12:00 140/53 07/04/18 12:00 97.0 60 21 140/53 (82) 97 Intake and Output 07/04/18 07/05/18 19:00 07:00 Intake Total 395 ml 110 ml Balance 395 ml 110 ml Intake Oral 200 ml Free Water 50 ml IV Total 55 ml 110 ml Tube Feeding 90 ml # Voids 5 2 # Bowel Movements 3 2 Laboratory Tests Test 07/05/18 05:45 White Blood Count 10.8 K/UL (4.8-10.8) # Red Blood Count 4.40 M/UL (4.70-6.10) L Hemoglobin 13.6 G/DL (14.2-18.0) L Hematocrit 41.4 % (42.0-52.0) L Mean Corpuscular Volume 94 FL (80-99) Mean Corpuscular Hemoglobin 31.0 PG (27.0-31.0) Mean Corpuscular Hemoglobin Concent 32.9 G/DL (32.0-36.0) Red Cell Distribution Width 13.2 % (11.6-14.8) Platelet Count 239 K/UL (150-450) Mean Platelet Volume 6.1 FL (6.5-10.1) L Neutrophils (%) (Auto) 72.7 % (45.0-75.0) Lymphocytes (%) (Auto) 19.2 % (20.0-45.0) L Monocytes (%) (Auto) 6.8 % (1.0-10.0) Eosinophils (%) (Auto) 0.9 % (0.0-3.0) Basophils (%) (Auto) 0.5 % (0.0-2.0) Sodium Level 137 MMOL/L (136-145) Potassium Level 4.2 MMOL/L (3.5-5.1) Chloride Level 102 MMOL/L (98-107) Carbon Dioxide Level 28 MMOL/L (21-32) Anion Gap 7 mmol/L (5-15) Blood Urea Nitrogen 20 mg/dL (7-18) H Creatinine 0.8 MG/DL (0.55-1.30) Estimat Glomerular Filtration Rate mL/min (>60) Glucose Level 165 MG/DL (74-106) H Calcium Level 9.8 MG/DL (8.5-10.1) Height (Feet): 5 Height (Inches): 6.00 Weight (Pounds): 159 General Appearance: no apparent distress Cardiovascular: normal rate Respiratory/Chest: normal breath sounds, no respiratory distress Abdominal Exam: normal bowel sounds, non tender, soft, GT site Extremities: non-tender Michelle Samuel NP July 05, 2018 10:17
[2018-07-05] MEDS: Docusate 100mg/10ml Liq GT SCH ×3 (10:42→18:00)
[2018-07-05] MEDS: metFORMIN 500mg tab GT SCH ×2 (10:43→18:59)
[2018-07-05] MEDS: Vitamin D 1000 IU Tab ORAL SCH ×2 (10:43→18:58)
[2018-07-05] MEDS: Losartan 50mg tab GT SCH (10:46)
[2018-07-05 12:00] VITALS: BP 142/58
--- NOTE | 2018-07-05 13:12 | Surgery Progress Note ---
Surgery Progress Note Subjective Additional Comments no acute events. stable. comfortable. g tube site cellulitis improved. Objective Last 24 Hour Vital Signs Date Time Temp Pulse Resp B/P (MAP) Pulse Ox O2 Delivery O2 Flow Rate FiO2 07/05/18 13:05 114/54 07/05/18 10:46 107/42 07/05/18 05:41 131/60 07/05/18 04:00 97.3 66 20 131/60 (83) 96 07/05/18 04:00 79 07/05/18 00:20 129/58 07/05/18 00:00 71 07/05/18 00:00 98.2 70 18 125/59 (81) 95 07/04/18 21:14 85 128/59 07/04/18 21:00 Room Air 07/04/18 20:00 83 07/04/18 20:00 97.3 85 18 125/59 (81) 97 07/04/18 17:54 115/64 07/04/18 16:00 97.2 76 22 115/64 (81) 97 07/04/18 16:00 72 I&O Intake and Output 07/04/18 07/05/18 19:00 07:00 Intake Total 395 ml 110 ml Balance 395 ml 110 ml Intake Oral 200 ml Free Water 50 ml IV Total 55 ml 110 ml Tube Feeding 90 ml # Voids 5 2 # Bowel Movements 3 2 Dressing: dry Wound: clean Drains: other Cardiovascular: RSR Respiratory: clear Abdomen: soft, flat, non-tender, present bowel sounds, non-distended Extremities: no tenderness, no cyanosis Laboratory Tests Test 07/05/18 05:45 White Blood Count 10.8 K/UL (4.8-10.8) # Red Blood Count 4.40 M/UL (4.70-6.10) L Hemoglobin 13.6 G/DL (14.2-18.0) L Hematocrit 41.4 % (42.0-52.0) L Mean Corpuscular Volume 94 FL (80-99) Mean Corpuscular Hemoglobin 31.0 PG (27.0-31.0) Mean Corpuscular Hemoglobin Concent 32.9 G/DL (32.0-36.0) Red Cell Distribution Width 13.2 % (11.6-14.8) Platelet Count 239 K/UL (150-450) Mean Platelet Volume 6.1 FL (6.5-10.1) L Neutrophils (%) (Auto) 72.7 % (45.0-75.0) Lymphocytes (%) (Auto) 19.2 % (20.0-45.0) L Monocytes (%) (Auto) 6.8 % (1.0-10.0) Eosinophils (%) (Auto) 0.9 % (0.0-3.0) Basophils (%) (Auto) 0.5 % (0.0-2.0) Sodium Level 137 MMOL/L (136-145) Potassium Level 4.2 MMOL/L (3.5-5.1) Chloride Level 102 MMOL/L (98-107) Carbon Dioxide Level 28 MMOL/L (21-32) Anion Gap 7 mmol/L (5-15) Blood Urea Nitrogen 20 mg/dL (7-18) H Creatinine 0.8 MG/DL (0.55-1.30) Estimat Glomerular Filtration Rate mL/min (>60) Glucose Level 165 MG/DL (74-106) H Calcium Level 9.8 MG/DL (8.5-10.1) Plan Problems: (1) Malnutrition Assessment & Plan: GJ cancelled by GI, follow up with video swallow for possible GT removal, per daughter patient has been eating 100% as per GI HEALTH AND PHYSICAL EDUCATION TEACHER: CONSIDER CONTINUE WITH PEG FEEDINGS PRIMARY MODE OF NUTRITION/HYDRATION AND GIVE ORAL GRAT OF PUREED AND THIN LIQUIDS (HALF PORTIONS) WITH POSTED ASP AND REFLUX PRECAUTIONS AND ASSIST WITH MEALS. CONSIDER ALLOWING FAMILY FOODS OF PREFERENCE IF PUREED. IF MASTICATED SOLIDS OR CHEWABLE FOODS CALL HEALTH AND PHYSICAL EDUCATION TEACHER TO OBSERVE IF POSSIBLE. Plan: Planning for video swallow to eval for oral intake safely and possible d/c g tube. will follow with recs thank you (2) Dehydration (3) CVA (cerebral vascular accident) (4) LFT elevation (5) Liver mass (6) G-tube site cellulitis (7) Pancreatitis Assessment & Plan: acute pancreatitis etiology unknown no etoh history lipase resolved. US noted. can work up mass as outpatient d/c planning (8) Atrial fibrillation and flutter (9) CHF (congestive heart failure) (10) Syncope (11) ACS (acute coronary syndrome) (12) Episode of generalized weakness (13) Skin infection at gastrostomy tube site Assessment & Plan: local wound care no abscess no surgical intervention needed at this time will monitor thank you (14) Skin infection at gastrostomy tube site Jesse Cash July 05, 2018 13:12
[2018-07-05] MEDS ORDERED: Lidocaine 1% Plain 30 ml INJ SCH (14:17)
[2018-07-05] MEDS: HYDROcodone/Acetamin 5/325 tab GT PRN (14:19)
--- NOTE | 2018-07-05 14:24 | Pre-Procedure Note/Attestation ---
Pre-Procedure Note/Attestation Complete Prior to Procedure Planned Procedure: not applicable Procedure Narrative: US guided liver biopsy Indications for Procedure Pre-Operative Diagnosis: liver mass Attestation I attest that I discussed the nature of the procedure; its benefits; risks and complications; and alternatives (and the risks and benefits of such alternatives ), prior to the procedure, with the patient (or the patient's legal retail account representative). I attest that, if there was a reasonable possibility of needing a blood transfusion, the patient (or the patient's legal retail account representative) was given the [facility] standardized written summary, pursuant to the Grzegorz Pura Blood Safety Act ([place] Health and Safety Code # 1645, as amended). I attest that I re-evaluated the patient just prior to the surgery and that there has been no change in the patient's H&P, except as documented below: Discussed with pt's. daughter Carolina by phone at [phone] Thomas Acosta MD July 05, 2018 14:24
--- NOTE | 2018-07-05 14:31 | NUR ---
DISCHARGE SWALLOW/SPEECH THERAPY SUMMARY: SEEN FOR DYSPHAGIA, SEE SWALLOW EVALUATION REPORT AND RECOMMENDATIONS. PATIENT PLACED ON CCHO-MED PUREED AND THIN LIQUID DIET (DISLIKES NECTAR THICK LIQUIDS). PATIENT INTAKE IS VARIABLE FROM POOR (REFUSES PO INTAKE) TO 50/75/100%. REFUSED PO TRIALS WITH BRAZILIAN-SPEAKING ST AND LUNCH MEAL BRAZILIAN-SPEAKING RN. PATIENT STATES HE HAS NO APPETITE. NOT APPROPRIATE FOR SKILLED ST NOR MOD BARIUM SWALLOW STUDY AT THIS TIME DUE TO NON-COMPLIANCE WITH PO TRIALS. WILL LIKELY REFUSE BARIUM. GOALS FOR INTAKE NOT CONSISTENTLY MET BUT GOALS MET FOR NEW STAFF EDUCATED/TRAINED IN POSTED ASP PRECAUTIONS. PLAN: CONSIDER GIVING APPETITE STIMULANT. CONTINUE WITH PO FOR ORAL GRAT (AND SALVORDORANEAN FOODS OF PREFERENCE) AND PEG SUPPLEMENT/PRIMARY MODE OF NUTRITION AND HYDRATION. D/W RN (MEG) AND GI CORPORATE DIRECTOR OF PHARMACY GABINO.
[2018-07-05 16:00] VITALS: BP 113/46
--- NOTE | 2018-07-05 16:55 | General Progress Note ---
Assessment/Plan Status: unchanged Assessment/Plan: IMPRESSION gt site infection aspiration OBS chronic encephalopathy diabetes hypertension liver mass PLAN antibiotics noted surgical evaluation noted GI evaluation= reviewed await clearance for back to snf care reviewed and discussed will follow up for dc to snf when able impression, plan, and exam edited and reviewed in detail care discussed with RN Subjective Allergies: Coded Allergies: No Known Allergies (Verified , 06/07/08) Subjective care noted all appreciated d/w daughter d/w surgery Objective Last 24 Hour Vital Signs Date Time Temp Pulse Resp B/P (MAP) Pulse Ox O2 Delivery O2 Flow Rate FiO2 07/05/18 16:00 97.7 85 20 113/46 (68) 96 07/05/18 16:00 79 07/05/18 13:05 114/54 07/05/18 12:00 86 07/05/18 12:00 97.9 85 20 142/58 (86) 98 07/05/18 10:46 107/42 07/05/18 08:00 61 07/05/18 08:00 98.1 82 20 135/47 (76) 97 07/05/18 05:41 131/60 07/05/18 04:00 97.3 66 20 131/60 (83) 96 07/05/18 04:00 79 07/05/18 00:20 129/58 07/05/18 00:00 71 07/05/18 00:00 98.2 70 18 125/59 (81) 95 07/04/18 21:14 85 128/59 07/04/18 21:00 Room Air 07/04/18 20:00 83 07/04/18 20:00 97.3 85 18 125/59 (81) 97 07/04/18 17:54 115/64 Intake and Output 07/04/18 07/05/18 18:59 06:59 Intake Total 395 ml 110 ml Balance 395 ml 110 ml Intake Oral 200 ml Free Water 50 ml IV Total 55 ml 110 ml Tube Feeding 90 ml # Voids 5 2 # Bowel Movements 3 2 Laboratory Tests 07/05/18 05:45: White Blood Count 10.8#, Red Blood Count 4.40L, Hemoglobin 13.6L, Hematocrit 41.4L, Mean Corpuscular Volume 94, Mean Corpuscular Hemoglobin 31.0, Mean Corpuscular Hemoglobin Concent 32.9, Red Cell Distribution Width 13.2, Platelet Count 239, Mean Platelet Volume 6.1L, Neutrophils (%) (Auto) 72.7, Lymphocytes ( %) (Auto) 19.2L, Monocytes (%) (Auto) 6.8, Eosinophils (%) (Auto) 0.9, Basophils (%) (Auto) 0.5, Sodium Level 137, Potassium Level 4.2, Chloride Level 102, Carbon Dioxide Level 28, Anion Gap 7, Blood Urea Nitrogen 20H, Creatinine 0.8, Estimat Glomerular Filtration Rate , Glucose Level 165H, Calcium Level 9.8 Height (Feet): 5 Height (Inches): 6.00 Weight (Pounds): 159 Objective WDWN NAD clear breath sounds bilaterally without rhonchi or wheeze [id number] without MRG NABS nontender no HSM; GT no CCE confused Dustin Mary MD July 05, 2018 16:55
--- NOTE | 2018-07-05 19:30 | NUR ---
NURSE NOTES: received pt from day shift nurse. pt in bed no s/s of distress.safety precaution in place. bed locked and lowest position, call light within reach. will make rounds hourly to ensure pt's safety.
[2018-07-05 20:00] VITALS: BP 124/51
--- NOTE | 2018-07-05 20:30 | NUR ---
NURSE NOTES: Dr Godwin assessed pt, Gtube was removed, gauzes place to cover the site, pt tolerated well the G tube removal. per Dr Weiss new Gtube will be place 07/06/2018 AM. no new orders, per Dr Godwin pt doesn't need to be NPO. will continue to monitor.
--- NOTE | 2018-07-05 20:34 | NUR ---
HAND-OFF: Report given to Sabrina Mason.
[2018-07-05] MEDS: Miralax 17gm pkt GT SCH (20:52)
[2018-07-05] MEDS: Donepezil 10mg tab GT SCH (20:53)
[2018-07-06] VITALS: BP 127/61
--- NOTE | 2018-07-06 | NUR ---
NURSE NOTES: pt in bed, no c/o ABD pain, no drainage or leaking noted at GTube site. Gauze clean dry and intact. bowel sound present in all quadrants, safety precaution in place. will continue to monitor
[2018-07-06] MEDS: HydrALAZINE 50mg tab ORAL SCH ×4 (00:25→18:31)
[2018-07-06] MEDS: NovoLOG Insulin Flexpen SUBQ SCH ×4 (00:31→18:36)
[2018-07-06 04:00] VITALS: BP 141/56
--- NOTE | 2018-07-06 04:00 | NUR ---
NURSE NOTES: pt sleeping no change in condition. will continue to monitor.
[2018-07-06] MEDS: ceFAZolin 1gm in D5W 55ml IVPB SCH ×3 (05:31→21:23)
--- NOTE | 2018-07-06 06:46 | NUR ---
NURSE NOTES: pt remains in stable condition. no c/o abdominal pain or discomfort after Gtube removal. no drainage or leaking noted in site, gauze clean dry and intact. no change of condition during my shift. all needs met during my shift. safety precautions in place. all needs met during my shift, will endorse care to incoming nurse.
--- NOTE | 2018-07-06 07:30 | NUR ---
HAND-OFF: Report given to ISMAEL Marrero.
[2018-07-06 07:49] LABS: BASOPHILS % (AUTO) 0.6 % (0.0-2.0); HEMATOCRIT 39.7 % (42.0-52.0); HEMOGLOBIN 13.1 G/DL (14.2-18.0); LYMPHOCYTES % (AUTO) 22.5 % (20.0-45.0); MEAN CORPUSCULAR VOLUME 94 FL (80-99); MONOCYTES % (AUTO) 7.7 % (1.0-10.0); NEUTROPHILS % (AUTO) 67.1 % (45.0-75.0); PLATELET COUNT 232 K/UL (150-450); RED BLOOD COUNT 4.25 M/UL (4.70-6.10); RED CELL DISTRIBUTION WIDTH 13.5 % (11.6-14.8); WHITE BLOOD COUNT 8.8 K/UL (4.8-10.8)
[2018-07-06 08:00] VITALS: BP 147/64
[2018-07-06 08:12] LABS: ANION GAP 6 mmol/L (5-15); BLOOD UREA NITROGEN 16 mg/dL (7-18); CALCIUM 9.8 MG/DL (8.5-10.1); CARBON DIOXIDE 29 MMOL/L (21-32); CHLORIDE 102 MMOL/L (98-107); CREATININE 0.8 MG/DL (0.55-1.30); POTASSIUM 4.5 MMOL/L (3.5-5.1); SODIUM 137 MMOL/L (136-145)
--- NOTE | 2018-07-06 08:12 | NUR ---
NURSE NOTES: received pt report from Sabrina Mason. Pt awake in bed no complains of pain does not want to eat breakfast. 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 Bed locked and in lowest position. call light within reach. Will continue to monitor and follow plan of care. Dr. Rene reinserted Gtube 24f. per doctor Anju continue feedings.
--- NOTE | 2018-07-06 09:02 | General Progress Note ---
Assessment/Plan Problem List: (1) CHF (congestive heart failure) ICD Codes: I50.9 - Heart failure, unspecified SNOMED: 89632942 (2) Atrial fibrillation and flutter ICD Codes: I48.91 - Unspecified atrial fibrillation; I48.92 - Unspecified atrial flutter SNOMED: 975698192 (3) G-tube site cellulitis ICD Codes: K94.22 - Gastrostomy infection; L03.319 - Cellulitis of trunk, unspecified SNOMED: 575353229, 165938391 (4) Liver mass ICD Codes: R16.0 - Hepatomegaly, not elsewhere classified SNOMED: 125206657 (5) LFT elevation ICD Codes: R94.5 - Abnormal results of liver function studies SNOMED: 046727165, 144297141 (6) CVA (cerebral vascular accident) ICD Codes: I63.9 - CVA (cerebral vascular accident) SNOMED: 116523624 Status: unchanged Assessment/Plan: CTAP 10cm mass noted on the liver. Wound culture negative around GT site Pancreatitis, now resolved AFP WNL liver mass biopsy postponed for out patient 24 Fr GT was placed today will start GTF advance to regular puree diet calorie count OB stool r/o GI bleed bowel regime follow labs fu oncology Subjective ROS Limited/Unobtainable: No Allergies: Coded Allergies: No Known Allergies (Verified , 06/07/08) Objective Last 24 Hour Vital Signs Date Time Temp Pulse Resp B/P (MAP) Pulse Ox O2 Delivery O2 Flow Rate FiO2 07/06/18 04:00 98.0 77 18 141/56 (84) 98 07/06/18 04:00 77 07/06/18 00:25 127/61 07/06/18 00:00 97.9 94 18 127/61 (83) 97 07/06/18 00:00 8 07/05/18 21:00 Room Air 07/05/18 20:54 90 124/51 07/05/18 20:00 91 07/05/18 20:00 95.7 90 18 124/51 (75) 97 07/05/18 18:59 117/50 07/05/18 16:00 97.7 85 20 113/46 (68) 96 07/05/18 16:00 79 07/05/18 13:05 114/54 07/05/18 12:00 86 07/05/18 12:00 97.9 85 20 142/58 (86) 98 07/05/18 10:46 107/42 Intake and Output 07/05/18 07/06/18 19:00 07:00 Intake Total 150 ml 55 ml Output Total 400 ml Balance 150 ml -345 ml Intake Oral 150 ml IV Total 55 ml Output Urine Total 400 ml # Voids 2 # Bowel Movements 2 1 Laboratory Tests 07/06/18 05:45: White Blood Count 8.8, Red Blood Count 4.25L, Hemoglobin 13.1L, Hematocrit 39.7L , Mean Corpuscular Volume 94, Mean Corpuscular Hemoglobin 30.9, Mean Corpuscular Hemoglobin Concent 33.1, Red Cell Distribution Width 13.5, Platelet Count 232, Mean Platelet Volume 6.1L, Neutrophils (%) (Auto) 67.1, Lymphocytes ( %) (Auto) 22.5, Monocytes (%) (Auto) 7.7, Eosinophils (%) (Auto) 2.0, Basophils (%) (Auto) 0.6, Sodium Level 137, Potassium Level 4.5, Chloride Level 102, Carbon Dioxide Level 29, Anion Gap 6, Blood Urea Nitrogen 16, Creatinine 0.8, Estimat Glomerular Filtration Rate , Glucose Level 117H, Calcium Level 9.8 Height (Feet): 5 Height (Inches): 6.00 Weight (Pounds): 159 General Appearance: no apparent distress EENT: normal ENT inspection Neck: supple Cardiovascular: normal rate Respiratory/Chest: decreased breath sounds Abdomen: normal bowel sounds, non tender, soft Extremities: non-tender Demetris Gonzales MD July 06, 2018 09:02
[2018-07-06] MEDS: Docusate 100mg/10ml Liq GT SCH ×3 (09:34→18:00)
[2018-07-06] MEDS: Vitamin D 1000 IU Tab ORAL SCH ×2 (09:35→18:25)
[2018-07-06] MEDS: metFORMIN 500mg tab GT SCH ×2 (09:35→18:25)
[2018-07-06] MEDS: Losartan 50mg tab GT SCH (09:36)
[2018-07-06] MEDS: Metoprolol Tartrate 50mg tab GT SCH ×2 (09:37→21:21)
[2018-07-06 12:00] VITALS: BP 143/66
--- NOTE | 2018-07-06 12:28 | General Progress Note ---
Assessment/Plan Status: unchanged Assessment/Plan: IMPRESSION gt site infection aspiration OBS chronic encephalopathy diabetes hypertension liver mass PLAN antibiotics noted surgical evaluation noted GI evaluation appreciated await clearance for back to snf care reviewed and discussed will follow up for dc to snf when able impression, plan, and exam edited and reviewed in detail care discussed with RN Subjective Allergies: Coded Allergies: No Known Allergies (Verified , 06/07/08) Subjective care noted all appreciated d/w daughter d/w surgery tube replaced Objective Last 24 Hour Vital Signs Date Time Temp Pulse Resp B/P (MAP) Pulse Ox O2 Delivery O2 Flow Rate FiO2 07/06/18 09:37 78 114/53 07/06/18 09:36 114/53 07/06/18 08:00 97.8 83 18 147/64 (91) 98 07/06/18 08:00 74 07/06/18 04:00 98.0 77 18 141/56 (84) 98 07/06/18 04:00 77 07/06/18 00:25 127/61 07/06/18 00:00 97.9 94 18 127/61 (83) 97 07/06/18 00:00 8 07/05/18 21:00 Room Air 07/05/18 20:54 90 124/51 07/05/18 20:00 91 07/05/18 20:00 95.7 90 18 124/51 (75) 97 07/05/18 18:59 117/50 07/05/18 16:00 97.7 85 20 113/46 (68) 96 07/05/18 16:00 79 07/05/18 13:05 114/54 Intake and Output 07/05/18 07/06/18 19:00 07:00 Intake Total 150 ml 55 ml Output Total 400 ml Balance 150 ml -345 ml Intake Oral 150 ml IV Total 55 ml Output Urine Total 400 ml # Voids 2 # Bowel Movements 2 1 Laboratory Tests 07/06/18 05:45: White Blood Count 8.8, Red Blood Count 4.25L, Hemoglobin 13.1L, Hematocrit 39.7L , Mean Corpuscular Volume 94, Mean Corpuscular Hemoglobin 30.9, Mean Corpuscular Hemoglobin Concent 33.1, Red Cell Distribution Width 13.5, Platelet Count 232, Mean Platelet Volume 6.1L, Neutrophils (%) (Auto) 67.1, Lymphocytes ( %) (Auto) 22.5, Monocytes (%) (Auto) 7.7, Eosinophils (%) (Auto) 2.0, Basophils (%) (Auto) 0.6, Sodium Level 137, Potassium Level 4.5, Chloride Level 102, Carbon Dioxide Level 29, Anion Gap 6, Blood Urea Nitrogen 16, Creatinine 0.8, Estimat Glomerular Filtration Rate , Glucose Level 117H, Calcium Level 9.8 Height (Feet): 5 Height (Inches): 6.00 Weight (Pounds): 159 Objective WDWN NAD clear breath sounds bilaterally without rhonchi or wheeze [id number] without MRG NABS nontender no HSM; GT no CCE confused Dustin Mary MD July 06, 2018 12:28
--- NOTE | 2018-07-06 12:33 | Surgery Progress Note ---
Surgery Progress Note Subjective Additional Comments g tube replaced by GI tolerating diet but not eating enough feeds okay no complaints. spoke with daughter yesterday and informed her of findings and care plan Objective Last 24 Hour Vital Signs Date Time Temp Pulse Resp B/P (MAP) Pulse Ox O2 Delivery O2 Flow Rate FiO2 07/06/18 09:37 78 114/53 07/06/18 09:36 114/53 07/06/18 08:00 97.8 83 18 147/64 (91) 98 07/06/18 08:00 74 07/06/18 04:00 98.0 77 18 141/56 (84) 98 07/06/18 04:00 77 07/06/18 00:25 127/61 07/06/18 00:00 97.9 94 18 127/61 (83) 97 07/06/18 00:00 8 07/05/18 21:00 Room Air 07/05/18 20:54 90 124/51 07/05/18 20:00 91 07/05/18 20:00 95.7 90 18 124/51 (75) 97 07/05/18 18:59 117/50 07/05/18 16:00 97.7 85 20 113/46 (68) 96 07/05/18 16:00 79 07/05/18 13:05 114/54 I&O Intake and Output 07/05/18 07/06/18 19:00 07:00 Intake Total 150 ml 55 ml Output Total 400 ml Balance 150 ml -345 ml Intake Oral 150 ml IV Total 55 ml Output Urine Total 400 ml # Voids 2 # Bowel Movements 2 1 Dressing: saturated Wound: clean Drains: other Cardiovascular: RSR Respiratory: clear Abdomen: soft, flat, present bowel sounds, non-distended Extremities: no tenderness, no cyanosis Laboratory Tests Test 07/06/18 05:45 White Blood Count 8.8 K/UL (4.8-10.8) Red Blood Count 4.25 M/UL (4.70-6.10) L Hemoglobin 13.1 G/DL (14.2-18.0) L Hematocrit 39.7 % (42.0-52.0) L Mean Corpuscular Volume 94 FL (80-99) Mean Corpuscular Hemoglobin 30.9 PG (27.0-31.0) Mean Corpuscular Hemoglobin Concent 33.1 G/DL (32.0-36.0) Red Cell Distribution Width 13.5 % (11.6-14.8) Platelet Count 232 K/UL (150-450) Mean Platelet Volume 6.1 FL (6.5-10.1) L Neutrophils (%) (Auto) 67.1 % (45.0-75.0) Lymphocytes (%) (Auto) 22.5 % (20.0-45.0) Monocytes (%) (Auto) 7.7 % (1.0-10.0) Eosinophils (%) (Auto) 2.0 % (0.0-3.0) Basophils (%) (Auto) 0.6 % (0.0-2.0) Sodium Level 137 MMOL/L (136-145) Potassium Level 4.5 MMOL/L (3.5-5.1) Chloride Level 102 MMOL/L (98-107) Carbon Dioxide Level 29 MMOL/L (21-32) Anion Gap 6 mmol/L (5-15) Blood Urea Nitrogen 16 mg/dL (7-18) Creatinine 0.8 MG/DL (0.55-1.30) Estimat Glomerular Filtration Rate mL/min (>60) Glucose Level 117 MG/DL (74-106) H Calcium Level 9.8 MG/DL (8.5-10.1) Plan Problems: (1) Malnutrition Assessment & Plan: G tube replaced tolerating diet but not enough feeds and diet okay meds via tube COIL FORMER: CONSIDER CONTINUE WITH PEG FEEDINGS PRIMARY MODE OF NUTRITION/HYDRATION AND GIVE ORAL GRAT OF PUREED AND THIN LIQUIDS (HALF PORTIONS) WITH POSTED ASP AND REFLUX PRECAUTIONS AND ASSIST WITH MEALS. CONSIDER ALLOWING FAMILY FOODS OF PREFERENCE IF PUREED. IF MASTICATED SOLIDS OR CHEWABLE FOODS CALL COIL FORMER TO OBSERVE IF POSSIBLE. Plan: will follow with recs thank you (2) Dehydration (3) CVA (cerebral vascular accident) (4) LFT elevation (5) Liver mass (6) G-tube site cellulitis (7) Pancreatitis Assessment & Plan: acute pancreatitis etiology unknown no etoh history lipase resolved. US noted. can work up mass as outpatient d/c planning (8) Atrial fibrillation and flutter (9) CHF (congestive heart failure) (10) Syncope (11) ACS (acute coronary syndrome) (12) Episode of generalized weakness (13) Skin infection at gastrostomy tube site Assessment & Plan: local wound care no abscess no surgical intervention needed at this time will monitor thank you (14) Skin infection at gastrostomy tube site Jesse Cash July 06, 2018 12:33
--- NOTE | 2018-07-06 13:40 | NUR ---
NURSE NOTES: Spoke to Hardeep at [facility]. He is trying to get pt into [facility] but [facility] supervisor hasn't answer yet. Called and spoke to Viola Ventura, and explained situation to her. I explained to her that insurance is not covering for her uncle's hospital stay therefore, he needs to be sent to [facility] today if [facility] does not want to accept him.
[2018-07-06 16:00] VITALS: BP 123/55
[2018-07-06] MEDS ORDERED: Sterile Water Irrig 1000ml IRRIG ONE (16:23)
[2018-07-06] MEDS ORDERED: NS 275ml ONE (16:23)
[2018-07-06 20:00] VITALS: BP 127/53
--- NOTE | 2018-07-06 20:19 | NUR ---
NURSE NOTES: pt does not want to eat meals. Advised pt daughter about it. Daughter came to feed him and he ate 75% of dinner. Pt still getting fed via Gtube @50ml/hr. He tolerates feeding with no residual every time G tube is checked. Pt does not complain of any stomach pain gas or nausea.
--- NOTE | 2018-07-06 20:20 | NUR ---
NURSE NOTES: Gtube feeding infusing, 5 ml residual at this time. will continue monitor.
--- NOTE | 2018-07-06 20:20 | NUR ---
NURSE NOTES: received pt from day shift nurse. GTube placed this morning and infusing feeding at 50 ml/hr. pt denies abdominal pain or discomfort. BS present in all abdominal quadrant. abdomen soft and nontender. pt in bed no s/s of distress.safety precaution in place. bed locked and lowest position, call light within reach. will make rounds hourly to ensure pt's safety.
--- NOTE | 2018-07-06 20:23 | NUR ---
HAND-OFF: Report given to Sabrina GUEVARA.
[2018-07-06] MEDS: Donepezil 10mg tab GT SCH (21:20)
[2018-07-06] MEDS: Miralax 17gm pkt GT SCH (21:20)
[2018-07-07] VITALS: BP 138/66
[2018-07-07] MEDS: HydrALAZINE 50mg tab ORAL SCH ×4 (00:11→17:31)
[2018-07-07] MEDS: NovoLOG Insulin Flexpen SUBQ SCH ×4 (00:14→17:42)
--- NOTE | 2018-07-07 00:20 | NUR ---
NURSE NOTES: pt watching tv. gtube infusing feeding. no residual obtained from Gtube at this time. no acute distress noted. safety precaution in place. will continue to monitor
--- NOTE | 2018-07-07 02:30 | Progress Note ---
DATE: 07/04/2018 CARDIOLOGY PROGRESS NOTE SUBJECTIVE: The patient is seen and evaluated. Family member at bedside. The patient has no chest pain. No shortness of breath. His pacemaker interrogation was addressed. The patient's G-tube continues to leak. Surgical evaluation is in progress. OBJECTIVE: VITAL SIGNS: Blood pressure 123/48, pulse 60, and respirations 22. Monitored rhythm is a paced rhythm. LUNGS: With diminished breath sounds. No wheezing or rales. CARDIAC: Regular rhythm and rate. Normal S1, paradoxically split S2. There is a 1/6 systolic apical murmur. ABDOMEN: Soft and nontender. EXTREMITIES: Without edema. LABORATORY DATA: White count 7 and hemoglobin 13.8. Potassium 4.1, BUN 23, and creatinine 0.8. IMPRESSION: 1. G-tube malfunction. 2. Permanent pacemaker. 3. Hypertensive cardiomyopathy. 4. Chronic systolic and diastolic congestive heart failure. 5. Paroxysmal atrial fibrillation. PLAN: 1. We will review records and determine need for repeat pacemaker interrogation. 2. We will continue to monitor volume status and cardiorenal function and adjust anti-failure regimen appropriately. 3. No current plans for anticoagulation due to increased risk to benefit ratio. 4. Stable for G-tube replacement if needed without anticipated increase in perioperative cardiovascular risk. Marcellus Richards M.D. DR: KARLEE JOB#: [id number] CC:
--- NOTE | 2018-07-07 02:45 | Progress Note ---
DATE: 07/06/2018 CARDIOLOGY PROGRESS NOTE SUBJECTIVE: The patient has no new complaints. He is continuing to receive treatment for infection around the G-tube. Oral intake is not adequate to maintain nutrition. A G-tube replacement has been performed. The patient's outpatient records were reviewed and it appears on May of 2018, his pacemaker was interrogated and appropriately functioning. OBJECTIVE: VITAL SIGNS: Blood pressure 114/53, pulse 78, and respirations 18. LUNGS: Diminished breath sounds. Jugular venous pressure normal. HEART: Regular rhythm and rate. Normal S1. Paradoxically split S2. A 1/6 early systolic apical murmur. ABDOMEN: Soft. G-tube site is dressed and in place. EXTREMITIES: There is no edema. IMPRESSION: 1. Stable cardiovascular parameters on current regimen. 2. No signs of acute congestive heart failure. 3. Pacemaker is functioning adequately with preserved battery life. PLAN: 1. Presently, no plan for anticoagulation due to fall risk. 2. We will follow and make adjustment to regimen based on clinical parameters. Marcellus Richards M.D. DR: KARLEE JOB#: [id number] CC:
--- NOTE | 2018-07-07 02:45 | Progress Note ---
DATE: 07/05/2018 CARDIOLOGY PROGRESS NOTE SUBJECTIVE: The patient was seen and evaluated. Family member at bedside. Expressing concern over continued leak around G-tube. The patient has some congestion, but no shortness of breath or chest pain. He tolerates food from family members by mouth. OBJECTIVE: VITAL SIGNS: Blood pressure 113/46, pulse 85, and respirations 20. NECK: Jugular venous pressure normal. LUNGS: Diminished breath sounds. No rales. CARDIAC: Regular. Normal S1, S2. A 1/6 systolic murmur at apex. ABDOMEN: Soft. G-tube site has dressing in place. EXTREMITIES: There is no edema. LABORATORY DATA: Sodium 137, potassium 4.2, bicarbonate 28, BUN 20, and creatinine 0.8. White count 10.8 and hemoglobin 13.6. Stool occult blood negative. IMPRESSION: 1. G-tube malfunction. 2. Permanent pacemaker with appropriate function. 3. Chronic systolic and diastolic congestive heart failure. 4. Hypertensive cardiomyopathy. 5. Paroxysmal atrial fibrillation. 6. Cerebrovascular disease with dementia. PLAN: 1. G-tube care. 2. If surgical intervention required, the patient is stable from a cardiovascular standpoint to proceed. 3. No plan for anticoagulation in this patient due to increased risk to benefit ratio. 4. Maintain current cardiovascular regimen. 5. Monitor volume status and cardiorenal parameters and adjust therapy accordingly. Marcellus Richards M.D. DR: KARLEE JOB#: [id number] CC:
--- NOTE | 2018-07-07 03:00 | Consultation ---
DATE OF CONSULTATION: 07/03/2018 CARDIOLOGY CONSULTATION REASON FOR CONSULTATION: Cardiovascular evaluation in the setting of permanent pacemaker and cardiomyopathy. HISTORY OF PRESENT ILLNESS: This is a 77-year-old male. He was brought into the hospital because of worsening drainage from his G-tube site. The nursing staff in the retirement facility had difficulty using it. The patient recently had a G-tube replacement. The patient is able to take oral intake, but requires the G-tube for adequate nutrition. The patient has not had any fevers or chills and there is no apparent complaints of chest pain or shortness of breath although historical data is limited due to his baseline dementia. PAST MEDICAL HISTORY: 1. Hypertension with hypertensive heart disease. 2. Chronic systolic and diastolic congestive heart failure. 3. Permanent pacemaker. 4. Paroxysmal atrial fibrillation. 5. Cerebrovascular disease with history of cerebrovascular accident. 6. Type 2 diabetes mellitus. 7. Chronic kidney disease. MEDICATIONS: Prior to admission, reviewed and reconciled. ALLERGIES: None known. SOCIAL HISTORY: No active smoking. Prior history of alcohol in moderate quantities. No substance abuse. Presently, resides at a retirement facility. REVIEW OF SYSTEMS: The review of records performed x15 minutes. Pertinent data is outlined above. The patient is unable to give any reliable history otherwise. PHYSICAL EXAMINATION: VITAL SIGNS: Blood pressure 135/82, pulse 59, respirations 18, and afebrile. HEENT: Mild temporal wasting. Arcus senilis. Oropharynx clear. NECK: Supple. Jugular venous pressure normal. LUNGS: With diminished breath sounds. No wheezing or rales. Chest wall with pacemaker pocket site clean and dry. CARDIAC: Regular rhythm and rate. Normal S1, paradoxically split S2. A 1/6 systolic murmur at apex. ABDOMEN: Soft and nontender. G-tube site has dressing in place. There is drainage noted. No purulence. EXTREMITIES: Revealed no clubbing, cyanosis, or edema. LABORATORY DATA: White count 8.4 and hemoglobin 14. Sodium 138, potassium 4.2, bicarbonate 28, BUN 22, and creatinine 0.9. Albumin 2.3. Magnesium 2.0. 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 IMPRESSION: 1. G-tube malfunction. 2. Hypertensive and ischemic heart disease. 3. Chronic stable angina. 4. Chronic systolic and diastolic congestive heart failure. 5. Paroxysmal atrial fibrillation, presently suppressed. 6. Permanent pacemaker with apparent appropriate function. 7. 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 8. Cerebrovascular disease. 9. Type 2 diabetes mellitus with complications. PLAN: 1. Stable for G-tube replacement should that be required under general anesthesia without significant increase in perioperative cardiovascular risk. 2. Pacemaker interrogation if not recently done will be arranged. 3. Monitor volume status and cardiorenal parameters and adjust therapy accordingly. 4. Continue current cardiovascular regimen without change otherwise. 5. No plan for anticoagulation due to the patient's increased risk for complications. Marcellus Richards M.D. DR: KARLEE JOB#: [id number] CC:
[2018-07-07 04:00] VITALS: BP 141/62
[2018-07-07] MEDS: ceFAZolin 1gm in D5W 55ml IVPB SCH ×3 (05:13→21:06)
--- NOTE | 2018-07-07 06:43 | NUR ---
NURSE NOTES: pt remains in stable condition. no change of condition during my shift. pt tolerating well gtube feeding. safety precautions in place. all needs met during my shift, will endorse care to incoming nurse.
--- NOTE | 2018-07-07 07:26 | NUR ---
NURSE NOTES: I received the patient resting in bed. Patient does not display any signs of distress or SOB. Bed in the lowest position and call light within reach. I will continue to monitor the patient and implement care.
--- NOTE | 2018-07-07 07:26 | NUR ---
HAND-OFF: Report given to ISMAEL To.
[2018-07-07 08:00] VITALS: BP 155/68
[2018-07-07] MEDS: Docusate 100mg/10ml Liq GT SCH ×3 (08:47→17:31)
[2018-07-07] MEDS: metFORMIN 500mg tab GT SCH ×2 (08:47→17:31)
[2018-07-07] MEDS: Losartan 50mg tab GT SCH (08:47)
[2018-07-07] MEDS: Metoprolol Tartrate 50mg tab GT SCH ×2 (08:47→21:07)
[2018-07-07] MEDS: Vitamin D 1000 IU Tab ORAL SCH ×2 (08:47→17:31)
--- NOTE | 2018-07-07 09:11 | General Progress Note ---
Assessment/Plan Status: unchanged Assessment/Plan: IMPRESSION gt site infection aspiration OBS chronic encephalopathy diabetes hypertension liver mass PLAN antibiotics reviewed surgical evaluation noted GI evaluation appreciated await clearance for back to snf care reviewed and discussed will follow up for dc to snf when able impression, plan, and exam edited and reviewed in detail care discussed with RN Subjective Allergies: Coded Allergies: No Known Allergies (Verified , 06/07/08) Subjective care noted all appreciated tube replaced ALERT Objective Last 24 Hour Vital Signs Date Time Temp Pulse Resp B/P (MAP) Pulse Ox O2 Delivery O2 Flow Rate FiO2 07/07/18 08:47 90 155/68 07/07/18 08:47 155/68 07/07/18 08:00 96.9 90 20 155/68 (97) 100 07/07/18 05:13 141/62 07/07/18 04:00 76 07/07/18 04:00 98.0 86 20 141/62 (88) 96 07/07/18 00:11 138/66 07/07/18 00:00 97.8 78 18 138/66 (90) 98 07/07/18 00:00 75 07/06/18 21:21 83 127/53 07/06/18 21:00 Room Air 07/06/18 20:00 97.6 83 18 127/53 (77) 96 07/06/18 20:00 78 07/06/18 18:31 115/62 07/06/18 16:00 77 07/06/18 16:00 98.0 84 18 123/55 (77) 98 07/06/18 12:31 135/59 07/06/18 12:00 72 07/06/18 12:00 97.7 73 18 143/66 (91) 96 07/06/18 09:37 78 114/53 07/06/18 09:36 114/53 Intake and Output 07/06/18 07/07/18 19:00 07:00 Intake Total 110 ml Balance 110 ml IV Total 110 ml # Voids 4 # Bowel Movements 2 1 Height (Feet): 5 Height (Inches): 6.00 Weight (Pounds): 159 Objective WDWN NAD clear breath sounds bilaterally without rhonchi or wheeze [id number] without MRG NABS nontender no HSM; GT no CCE confused Dustin Mary MD July 07, 2018 09:11
--- NOTE | 2018-07-07 09:31 | General Progress Note ---
Assessment/Plan Problem List: (1) CHF (congestive heart failure) ICD Codes: I50.9 - Heart failure, unspecified SNOMED: 10666569 (2) Atrial fibrillation and flutter ICD Codes: I48.91 - Unspecified atrial fibrillation; I48.92 - Unspecified atrial flutter SNOMED: 387843269 (3) G-tube site cellulitis ICD Codes: K94.22 - Gastrostomy infection; L03.319 - Cellulitis of trunk, unspecified SNOMED: 981282269, 125850982 (4) Liver mass ICD Codes: R16.0 - Hepatomegaly, not elsewhere classified SNOMED: 507728881 (5) LFT elevation ICD Codes: R94.5 - Abnormal results of liver function studies SNOMED: 628242989, 438117232 (6) CVA (cerebral vascular accident) ICD Codes: I63.9 - CVA (cerebral vascular accident) SNOMED: 536556775 Status: unchanged Assessment/Plan: CTAP 10cm mass noted on the liver. Wound culture negative around GT site Pancreatitis, now resolved AFP WNL liver mass biopsy postponed for out patient 24 Fr GT was placed yesterday and now is working well calorie count OB stool r/o GI bleed bowel regime follow labs fu oncology Subjective ROS Limited/Unobtainable: Yes Allergies: Coded Allergies: No Known Allergies (Verified , 06/07/08) Objective Last 24 Hour Vital Signs Date Time Temp Pulse Resp B/P (MAP) Pulse Ox O2 Delivery O2 Flow Rate FiO2 07/07/18 08:47 90 155/68 07/07/18 08:47 155/68 07/07/18 08:00 96.9 90 20 155/68 (97) 100 07/07/18 05:13 141/62 07/07/18 04:00 76 07/07/18 04:00 98.0 86 20 141/62 (88) 96 07/07/18 00:11 138/66 07/07/18 00:00 97.8 78 18 138/66 (90) 98 07/07/18 00:00 75 07/06/18 21:21 83 127/53 07/06/18 21:00 Room Air 07/06/18 20:00 97.6 83 18 127/53 (77) 96 07/06/18 20:00 78 07/06/18 18:31 115/62 07/06/18 16:00 77 07/06/18 16:00 98.0 84 18 123/55 (77) 98 07/06/18 12:31 135/59 07/06/18 12:00 72 07/06/18 12:00 97.7 73 18 143/66 (91) 96 07/06/18 09:37 78 114/53 07/06/18 09:36 114/53 Intake and Output 07/06/18 07/07/18 19:00 07:00 Intake Total 110 ml Balance 110 ml IV Total 110 ml # Voids 4 # Bowel Movements 2 1 Height (Feet): 5 Height (Inches): 6.00 Weight (Pounds): 159 General Appearance: alert EENT: normal ENT inspection Neck: supple Cardiovascular: normal rate Respiratory/Chest: decreased breath sounds Abdomen: normal bowel sounds, non tender, soft Extremities: non-tender Demetris Gonzales MD July 07, 2018 09:31
[2018-07-07 11:50] VITALS: BP 135/56
--- NOTE | 2018-07-07 11:56 | NUR ---
RD ASSESSMENT & RECOMMENDATIONS SEE CARE ACTIVITY FOR COMPLETE ASSESSMENT DAILY ESTIMATED NEEDS: Needs based on DM/ 67kg 25-30 kcals/kg total kcals 1-1.5 g protein/kg 67-100 g total protein 25-30 mL/kg total fluid mLs NUTRITION DIAGNOSIS: Swallowing difficulty R/T dysphagia as evidenced by pt w/ GT, was on texture modified diet and meds given via GT PARKING GARAGE MANAGER, GT now replaced, TF at goal. CURRENT DIET: NPO CURRENT TF:Glucerna 1.2 @50ml x22 hrs ENTERAL NUTRITION RECOMMENDATIONS: Glucerna 1.2 @ 65ml/hr x 22 hrs to provide 1430ml, 1716kcal, 85g prot, 1151ml free water * As medically appropriate, INCREASE Glucerna 1.2 to goal of 65ml/hr x 22hrs. * HOLD ONE HR BEFORE AND AFTER SYNTHROID MEDS * HOB >30 degrees, H2O flushes per MD * At goal, TF provides 100% of est. kcal & prot needs ADDITIONAL RECOMMENDATIONS: 1) TXR TO BED WITH BEDSCALE AND OBTAIN CALIBRATED BEDSCALE : Per SNF, cq=863hia (obtained 06/03/18) 2) Monitor for oral diet, PO acceptance and tolerance, need to adjust TF rec 3) Initiate TF as medically appropriate, rec as above 4) Monitor lytes, replete as needed 5) F/up with wound care eval: sacral redness per photo
--- NOTE | 2018-07-07 12:39 | Surgery Progress Note ---
Surgery Progress Note Subjective Additional Comments no acute events. comfortable. stable. tolerating feeds. Objective Last 24 Hour Vital Signs Date Time Temp Pulse Resp B/P (MAP) Pulse Ox O2 Delivery O2 Flow Rate FiO2 07/07/18 11:50 97.3 79 18 135/56 (82) 97 07/07/18 09:00 Room Air 07/07/18 08:47 90 155/68 07/07/18 08:47 155/68 07/07/18 08:03 78 07/07/18 08:00 96.9 90 20 155/68 (97) 100 07/07/18 05:13 141/62 07/07/18 04:00 76 07/07/18 04:00 98.0 86 20 141/62 (88) 96 07/07/18 00:11 138/66 07/07/18 00:00 97.8 78 18 138/66 (90) 98 07/07/18 00:00 75 07/06/18 21:21 83 127/53 07/06/18 21:00 Room Air 07/06/18 20:00 97.6 83 18 127/53 (77) 96 07/06/18 20:00 78 07/06/18 18:31 115/62 07/06/18 16:00 77 07/06/18 16:00 98.0 84 18 123/55 (77) 98 I&O Intake and Output 07/06/18 07/07/18 18:59 06:59 Intake Total 110 ml Balance 110 ml IV Total 110 ml # Voids 4 # Bowel Movements 2 1 Dressing: saturated Wound: clean Drains: other Cardiovascular: RSR Respiratory: clear Abdomen: soft, flat, non-tender, other, non-distended Extremities: no tenderness, no cyanosis Plan Problems: (1) Malnutrition Assessment & Plan: G tube replaced tolerating diet but not enough feeds and diet okay meds via tube PROGRAMMING SPECIALIST: CONSIDER CONTINUE WITH PEG FEEDINGS PRIMARY MODE OF NUTRITION/HYDRATION AND GIVE ORAL GRAT OF PUREED AND THIN LIQUIDS (HALF PORTIONS) WITH POSTED ASP AND REFLUX PRECAUTIONS AND ASSIST WITH MEALS. CONSIDER ALLOWING FAMILY FOODS OF PREFERENCE IF PUREED. IF MASTICATED SOLIDS OR CHEWABLE FOODS CALL PROGRAMMING SPECIALIST TO OBSERVE IF POSSIBLE. Plan: will follow with recs thank you (2) Dehydration (3) CVA (cerebral vascular accident) (4) LFT elevation (5) Liver mass (6) G-tube site cellulitis (7) Pancreatitis Assessment & Plan: acute pancreatitis etiology unknown no etoh history lipase resolved. US noted. can work up mass as outpatient d/c planning (8) Atrial fibrillation and flutter (9) CHF (congestive heart failure) (10) Syncope (11) ACS (acute coronary syndrome) (12) Episode of generalized weakness (13) Skin infection at gastrostomy tube site Assessment & Plan: local wound care no abscess no surgical intervention needed at this time will monitor thank you (14) Skin infection at gastrostomy tube site Jesse Cash July 07, 2018 12:39
[2018-07-07 15:49] VITALS: BP 116/65
--- NOTE | 2018-07-07 16:00 | NUR ---
NURSE NOTES: Received pt from ISMAEL To in stable condition with no cardiopulmonary distress noted on RA. Pt is awake AAOx3 with daughter Carolina present at bedside. GT noted runnig Glucerna 1.2 at 50 cc/hr. Skin alterations are noted. Pt has a LFA 20g IV. Bed is in lowest position, side rails up x 2, call light within reach. Will continue to monitor pt.
--- NOTE | 2018-07-07 19:30 | NUR ---
HAND-OFF: Report given to ISMAEL Gloria. Pt in stable condition. Endorsed to Juani that pt's daughter (Carolina) concerned why Pt's PO diet got cancelled and that I contacted Dr. Gonzales regarding that at 1800 but no response. [].
[2018-07-07 20:00] VITALS: BP 131/52
--- NOTE | 2018-07-07 20:30 | NUR ---
NURSE NOTES: received pt ISMAEL Bonilla in stable condition, Gtube site clean dry and intact. no acute distress noted. safety precautions in place. bed locked and call light within reach. will round pt hourly to ensure pt's safety.
[2018-07-07] MEDS: Miralax 17gm pkt GT SCH (21:06)
[2018-07-07] MEDS: Donepezil 10mg tab GT SCH (21:07)
[2018-07-08] VITALS: BP 130/59
[2018-07-08] MEDS: HydrALAZINE 50mg tab ORAL SCH ×3 (01:24→12:00)
--- NOTE | 2018-07-08 02:00 | NUR ---
NURSE NOTES: pt sleeping no acute distress noted, pt tolerating well feeding no gtube feeding residual. will continue to monitor.
--- NOTE | 2018-07-08 02:30 | Progress Note ---
DATE: 07/07/2018 CARDIOLOGY PROGRESS NOTE SUBJECTIVE: The patient is tolerating feedings. G-tube was replaced. No shortness of breath. Monitored rhythm, sinus with demand pacing and paroxysmal atrial fibrillation. OBJECTIVE: VITAL SIGNS: Blood pressure 127/53 to 155/68, heart rate 77 to 90, and respiratory rate 20. LUNGS: Bilateral breath sounds. No wheezing or rales. CARDIAC: Regular rhythm and rate. Normal S1 and S2. A 1/6 systolic murmur at apex. ABDOMEN: Soft. EXTREMITIES: Trace edema. LABORATORY DATA: Wound culture Proteus. IMPRESSION: 1. G-tube malfunction, now replaced. 2. Cerebrovascular disease with dementia. 3. Dysphagia. 4. Protein-calorie malnutrition. 5. Permanent pacemaker. 6. Paroxysmal atrial fibrillation. 7. Chronic systolic and diastolic congestive heart failure. 8. Type 2 diabetes mellitus. 9. Chronic kidney disease. PLAN: 1. Titrate cardiovascular regimen to optimize blood pressure control. 2. Maintain beta-jaison. 3. Continue statin drug. 4. No plans for anticoagulation due to fall risk. 5. Restart aspirin at low dose. Marcellus Richards M.D. DR: YANA JOB#: [id number] CC:
[2018-07-08 04:00] VITALS: BP 124/57
[2018-07-08] MEDS: ceFAZolin 1gm in D5W 55ml IVPB SCH (05:53)
[2018-07-08] MEDS: NovoLOG Insulin Flexpen SUBQ SCH ×3 (05:55→12:00)
[2018-07-08] MEDS: HYDROcodone/Acetamin 5/325 tab GT PRN (05:56)
[2018-07-08] MEDS ORDERED: DiphenhydrAMINE 50mg/ml Inj IVP PRN (06:45)
[2018-07-08] MEDS ORDERED: Midazolam 2mg/2ml Inj IVP PRN (06:45)
[2018-07-08] MEDS ORDERED: Atropine Inj 1mg/10ml Syr IV PRN (06:45)
[2018-07-08] MEDS ORDERED: fentaNYL 100 mcg/2 mL IV PRN (06:45)
--- NOTE | 2018-07-08 06:46 | Anethesia Preoperative Eval ---
Anesthesia Pre-op PMH/ROS General Date of Evaluation: July 08, 2018 Time of Evaluation: 06:38 Anesthesiologist: piyush ASA Score: ASA 4 Mallampati Score Class I : Soft palate, uvula, fauces, pillars visible Class II: Soft palate, uvula, fauces visible Class III: Soft palate, base of uvula visible Class IV: Only hard plate visible Mallampati Classification: Class II Surgeon: young Surgical Procedure: egd w/ gj tube converted Allergies: Coded Allergies: No Known Allergies (Verified , 06/07/08) Patient NPO?: Yes NPO Date: July 03, 2018 NPO Time: 00:00 Past Medical History Cardiovascular: Reports: HTN, arrhythmia, other - pacemaker, chf, syncope, acs Pulmonary: Reports: other Gastrointestinal/Genitourinary: Reports: other - elevated lft, liver mass, pancreatitis, colitis, bph, g tube Neurologic/Psychiatric: Reports: dementia, CVA, depression/anxiety, other - generalizes weakness, dysphasia Endocrine: Reports: DM, hypothyroidism HEENT: Reports: other - decreased visual acuity, adenoidectomy Musculoskeletal/Integumentary: Reports: OA PSxH Narrative: pacemaker, adenoidectomy, g tube, Anesthesia Pre-op Phys. Exam Physician Exam Last Vital Signs Date Time Temp Pulse Resp B/P (MAP) Pulse Ox O2 Delivery O2 Flow Rate FiO2 07/08/18 05:54 136/56 07/08/18 04:00 76 07/08/18 04:00 96.9 17 94 07/07/18 23:24 Room Air Airway Exam Mallampati Score: Class II Anesthesia Pre-op A/P Risk Assessment & Plan Assessment: asa4 Plan: Veronika García MD July 08, 2018 06:46
--- NOTE | 2018-07-08 06:50 | NUR ---
NURSE NOTES: pt remains in stable condition. no change of condition during my shift. pt tolerating Gtube feeding well, no residual during my shift. safety precautions in place. all needs met during my shift, will endorse care to incoming nurse.
--- NOTE | 2018-07-08 07:46 | NUR ---
HAND-OFF: Report given to ISMAEL Maria. Addendum: 07/08/18 at 0749 by Juani Houser RN report given to ISMAEL Marrero
[2018-07-08 08:00] VITALS: BP 130/68
--- NOTE | 2018-07-08 08:15 | General Progress Note ---
Assessment/Plan Status: unchanged Assessment/Plan: IMPRESSION gt site infection aspiration OBS chronic encephalopathy diabetes hypertension liver mass PLAN antibiotics reviewed surgical evaluation noted GI evaluation appreciated dc back to snf today impression, plan, and exam edited and reviewed in detail care discussed with RN Subjective Allergies: Coded Allergies: No Known Allergies (Verified , 06/07/08) Subjective care noted all appreciated tube replaced and cleared for discharge ALERT Objective Last 24 Hour Vital Signs Date Time Temp Pulse Resp B/P (MAP) Pulse Ox O2 Delivery O2 Flow Rate FiO2 07/08/18 05:54 136/56 07/08/18 04:00 76 07/08/18 04:00 96.9 76 17 124/57 (79) 94 07/08/18 01:24 130/59 07/08/18 00:00 96.9 75 20 130/59 (82) 96 07/08/18 00:00 76 07/07/18 23:24 Room Air 07/07/18 21:07 77 131/52 07/07/18 20:00 97.1 77 17 131/52 (78) 95 07/07/18 20:00 78 07/07/18 17:31 116/65 07/07/18 16:00 76 07/07/18 15:49 97.0 71 18 116/65 (82) 99 07/07/18 12:37 135/56 07/07/18 11:57 75 07/07/18 11:50 97.3 79 18 135/56 (82) 97 07/07/18 09:00 Room Air 07/07/18 08:47 90 155/68 07/07/18 08:47 155/68 Intake and Output 07/07/18 07/08/18 19:00 07:00 Intake Total 955 ml 110 ml Balance 955 ml 110 ml Free Water 120 ml IV Total 55 ml 110 ml Tube Feeding 780 ml # Voids 2 2 # Bowel Movements 3 1 Height (Feet): 5 Height (Inches): 6.00 Weight (Pounds): 159 Objective WDWN NAD clear breath sounds bilaterally without rhonchi or wheeze [id number] without MRG NABS nontender no HSM; GT no CCE confused Dustin Mary MD July 08, 2018 08:14
--- NOTE | 2018-07-08 08:22 | NUR ---
NURSE NOTES: received report from Juani Mason. Pt in bed awake and alert x 3. Pt on court monitor no signs of distress. Bed in lowest position and locked. Call light within reach. Pt is on G tube feeding. Per Dr. Murguia pt is ok to eat as long as ST approves it. Will continue plan of care.
--- NOTE | 2018-07-08 08:55 | NUR ---
DISCHARGE PLANNING DISCHARGE ORDER NOTED FAXED CLINICALS TO [facility] T: [phone] AWAIT BED ASSIGNMENT
[2018-07-08] MEDS ORDERED: Aspirin Baby 81mg PEG SCH (09:00)
[2018-07-08] MEDS: Vitamin D 1000 IU Tab ORAL SCH (09:39)
[2018-07-08] MEDS: metFORMIN 500mg tab GT SCH (09:39)
[2018-07-08] MEDS: Losartan 50mg tab GT SCH (09:39)
[2018-07-08] MEDS: Metoprolol Tartrate 50mg tab GT SCH (09:40)
[2018-07-08] MEDS: Docusate 100mg/10ml Liq GT SCH ×2 (09:40→13:00)
--- NOTE | 2018-07-08 09:49 | GI Progress Note ---
Assessment/Plan Problems: (1) Skin infection at gastrostomy tube site ICD Codes: K94.22 - Skin infection at gastrostomy tube site; L08.9 - Local infection of the skin and subcutaneous tissue, unspecified SNOMED: 621094451 (2) Liver mass ICD Codes: R16.0 - Hepatomegaly, not elsewhere classified SNOMED: 474476437 (3) Dehydration ICD Codes: E86.0 - Dehydration SNOMED: 82978147 (4) CVA (cerebral vascular accident) ICD Codes: I63.9 - CVA (cerebral vascular accident) SNOMED: 484713445 (5) G-tube site cellulitis ICD Codes: K94.22 - Gastrostomy infection; L03.319 - Cellulitis of trunk, unspecified SNOMED: 938682896, 776262184 Status: stable Status Narrative Discussed the Dr. Gonzales Assessment/Plan CTAP 10cm mass noted on the liver. Wound culture negative around GT site Pancreatitis, now resolved AFP WNL okay for DC per GI standpoint liver mass biopsy postponed for out patient 24 Fr GT was placed yesterday and now is working well calorie count OB stool r/o GI bleed bowel regime follow labs fu oncology The patient was seen and examined at bedside and all new and available data was reviewed in the patients chart. I agree with the above findings, impression and plan. (Patient seen earlier today. Signature stamp does not reflect patient encounter time.). - Demetris Gonzales MD Subjective Subjective Tenderness at G-tube site Objective Last 24 Hour Vital Signs Date Time Temp Pulse Resp B/P (MAP) Pulse Ox O2 Delivery O2 Flow Rate FiO2 07/08/18 09:40 86 132/54 07/08/18 09:39 132/54 07/08/18 05:54 136/56 07/08/18 04:00 76 07/08/18 04:00 96.9 76 17 124/57 (79) 94 07/08/18 01:24 130/59 07/08/18 00:00 96.9 75 20 130/59 (82) 96 07/08/18 00:00 76 07/07/18 23:24 Room Air 07/07/18 21:07 77 131/52 07/07/18 20:00 97.1 77 17 131/52 (78) 95 07/07/18 20:00 78 07/07/18 17:31 116/65 07/07/18 16:00 76 07/07/18 15:49 97.0 71 18 116/65 (82) 99 07/07/18 12:37 135/56 07/07/18 11:57 75 07/07/18 11:50 97.3 79 18 135/56 (82) 97 Intake and Output 07/07/18 07/08/18 19:00 07:00 Intake Total 955 ml 110 ml Balance 955 ml 110 ml Free Water 120 ml IV Total 55 ml 110 ml Tube Feeding 780 ml # Voids 2 2 # Bowel Movements 3 1 Height (Feet): 5 Height (Inches): 6.00 Weight (Pounds): 159 General Appearance: WD/WN, no apparent distress, alert Cardiovascular: normal rate Respiratory/Chest: normal breath sounds, no respiratory distress Abdominal Exam: normal bowel sounds, non tender, soft, GT site - Leakage has improved Extremities: normal range of motion, non-tender Michelle Samuel NP July 08, 2018 09:48
--- NOTE | 2018-07-08 11:08 | NUR ---
DISCHARGE PLANNED PATIENT WILL DISCHARGE TO [facility] ROOM [address] [facility] T: [phone] FOR NURSE TO NURSE REPORT [facility] HAS BEEN ARRANGED FOR 1300 HEALTH OFFICER CUSTOMER SUCCESS MANAGER SPOKE WITH DAUGHTER BOBBI WHO IS IN AGREEMENT WITH DISCHARGE PLAN
--- NOTE | 2018-07-08 11:36 | NUR ---
DISCHARGE SWALLOW/SPEECH THERAPY SUMMARY: UPDATES TODAY PRIOR TO D/C TO SNF TODAY: PER MEG,RN, THE FAMILY WANTS THE PATIENT TO EAT/DRINK A LITTLE FOR ORAL GRATIFICATION MOSTLY AT NIGHT WITH THE FAMILY. PER RN, PATIENT OBSERVED TO EAT/DRINK CCHO-MED PUREED AND THIN LIQUIDS W/O OVERT ASPIRATION WITH HIS DAUGHTER. PATIENT WILL REFUSE A MEAL WITH OTHER STAFF SO WILL ONLY SEND DINNER MEAL AT THIS TIME. WILL USE PEG FEEDINGS PRIMARY SOURCE OF HYDRATION/NUTRITION. PATIENT REFUSED MALDIVIAN-SPEAKING OIL SPRAYER WHEN HE WAS OFFERED BREAKFAST AND LUNCH TODAY. SEEN FOR DYSPHAGIA, SEE SWALLOW EVALUATION REPORT AND RECOMMENDATIONS. PATIENT PLACED ON CCHO-MED PUREED AND THIN LIQUID DIET (DISLIKES NECTAR THICK LIQUIDS). PATIENT INTAKE IS VARIABLE FROM POOR (REFUSES PO INTAKE) TO 50/75/100%. REFUSED PO TRIALS WITH MALDIVIAN-SPEAKING ST AND LUNCH MEAL MALDIVIAN-SPEAKING RN. PATIENT STATES HE HAS NO APPETITE. NOT APPROPRIATE FOR SKILLED ST NOR MOD BARIUM SWALLOW STUDY AT THIS TIME DUE TO NON-COMPLIANCE WITH PO TRIALS. WILL LIKELY REFUSE BARIUM. GOALS FOR INTAKE NOT CONSISTENTLY MET BUT GOALS MET FOR NEW STAFF EDUCATED/TRAINED IN POSTED ASP PRECAUTIONS. PLAN: CONSIDER GIVING APPETITE STIMULANT. CONTINUE WITH PO FOR ORAL GRAT (AND SALVORDORANEAN FOODS OF PREFERENCE) AND PEG SUPPLEMENT/PRIMARY MODE OF NUTRITION AND HYDRATION. D/W RN (MEG) AND GI SEAFOOD HARVESTER GABINO.
[2018-07-08 12:00] VITALS: BP 108/47
--- NOTE | 2018-07-08 12:15 | NUR ---
NURSE NOTES: Pt family (Carolina Carney) was notified of DC. Ambulance was called and pt will be p/u by 1pm. [facility] was given report, spoke with Dallin GUEVARA>
--- NOTE | 2018-07-08 12:16 | NUR ---
Per Dr. Kelley pt can be DC with SNF meds.
--- NOTE | 2018-07-08 12:21 | Surgery Progress Note ---
Surgery Progress Note Subjective Additional Comments no acute events. doing well and stable. speech note appreciated. cont with oral and tube feeds. Objective Last 24 Hour Vital Signs Date Time Temp Pulse Resp B/P (MAP) Pulse Ox O2 Delivery O2 Flow Rate FiO2 07/08/18 09:40 86 132/54 07/08/18 09:39 132/54 07/08/18 08:00 98.6 76 20 130/68 (88) 96 07/08/18 05:54 136/56 07/08/18 04:00 76 07/08/18 04:00 96.9 76 17 124/57 (79) 94 07/08/18 01:24 130/59 07/08/18 00:00 96.9 75 20 130/59 (82) 96 07/08/18 00:00 76 07/07/18 23:24 Room Air 07/07/18 21:07 77 131/52 07/07/18 20:00 97.1 77 17 131/52 (78) 95 07/07/18 20:00 78 07/07/18 17:31 116/65 07/07/18 16:00 76 07/07/18 15:49 97.0 71 18 116/65 (82) 99 07/07/18 12:37 135/56 I&O Intake and Output 07/07/18 07/08/18 19:00 07:00 Intake Total 955 ml 110 ml Balance 955 ml 110 ml Free Water 120 ml IV Total 55 ml 110 ml Tube Feeding 780 ml # Voids 2 2 # Bowel Movements 3 1 Dressing: dry Wound: clean Drains: other Cardiovascular: RSR Respiratory: clear Abdomen: soft, flat, non-tender, present bowel sounds, other, non-distended Extremities: no tenderness, no cyanosis Plan Problems: (1) Malnutrition Assessment & Plan: G tube replaced tolerating diet but not enough feeds and diet okay meds via tube oral diet as tolerated tube feeds as supplement not taking in enough oral by himself. needs tube feeds. keep g tube discussed with daughter. Plan: d/c planning okay to d/c from surgical standpoint thank you (2) Dehydration (3) CVA (cerebral vascular accident) (4) LFT elevation (5) Liver mass (6) G-tube site cellulitis (7) Pancreatitis Assessment & Plan: acute pancreatitis etiology unknown no etoh history lipase resolved. US noted. can work up mass as outpatient d/c planning (8) Atrial fibrillation and flutter (9) CHF (congestive heart failure) (10) Syncope (11) ACS (acute coronary syndrome) (12) Episode of generalized weakness (13) Skin infection at gastrostomy tube site Assessment & Plan: local wound care no abscess no surgical intervention needed at this time will monitor thank you (14) Skin infection at gastrostomy tube site Jesse Cash July 08, 2018 12:21
--- NOTE | 2018-07-08 16:03 | Physician Query ---
--------- THIS DOCUMENT IS A PERMANENT PART OF THE MEDICAL RECORD --------- PLEASE COMPLETE DOCUMENT BEFORE SIGNING Dear Dr.Pouya Cash Date: 07/03/18 Casino Porter/CDS Name: Adriana Aguayo Exercise your independent professional judgment when responding to the query. Questions asked do not imply a particular answer is desired or expected. We greatly appreciate your clarification on this issue. CLINICAL DOCUMENTATION STATES:07/02 note: 77-year-old male brought in by [facility] ambulance after increased leakage from his G-tube stoma site. 07/08 note: (1) Malnutrition Assessment & Plan: G tube replaced tolerating diet but not enough, feeds and diet okay, meds via tube RD note: NUTRITION DIAGNOSIS: Swallowing difficulty R/T dysphagia as evidenced by pt w/ GT, was on texture modified diet and meds given via GT FURNACE CONVERTER, currently NPO. Treatment: Glucerna, G-tube change Please select the severity of malnutrition: [] Mild [] Moderate [] Severe [] Other - please specify [] Unknown Condition Present on Admission: [] Yes [] No [ ] Unable to determine Please also document in your Progress Notes and/or Discharge Summary and indicate if the condition was present on admission. ___ Signature Date MTDD
--- NOTE | 2018-07-09 04:00 | Progress Note ---
DATE: 07/08/2018 CARDIOLOGY PROGRESS NOTE SUBJECTIVE: The patient's G-tube was replaced. It is infusing well with regard to nutrition. The patient has no chest pain or shortness of breath. No cough. OBJECTIVE: VITAL SIGNS: Blood pressure 124/57, pulse 76, and respirations 17. Afebrile. Monitored rhythm, demand pacing. LUNGS: With good breath sounds. No wheezes. HEART: Regular rhythm and rate. Normal S1, S2. A 1/6 systolic apical murmur. ABDOMEN: Soft. G-tube intact. EXTREMITIES: No edema. IMPRESSION: Stable from cardiovascular standpoint to discharge. PLAN: Plans for discharge to halfway facility noted. Discharge medication regimen reviewed. Outpatient pacemaker interrogation arranged with family members. Marcellus Richards M.D. DR: KARLEE JOB#: [id number] CC:
--- NOTE | 2018-07-09 07:17 | NUR ---
NURSE NOTES: /6 Pt P/u by ambulance and taken to [facility]. Pt IV was DC no bleeding cover site with 4x4. Pt off research biostatistician. V/s are stable. ID band was taken off. pt took belongings home with him.
--- NOTE | 2018-07-10 14:02 | Discharge Summary ---
Discharge Summary Discharge Summary _ DATE OF ADMISSION: 07/02/2018 DATE OF DISCHARGE: 07/08/2018 DISCHARGED BY: Dr. Mary REASON FOR ADMISSION: 77 years old male with past medical history of diabetes mellitus, hypertension, dysphagia, G-tube, aspiration, dementia, was sent to emergency room for evaluation due to leakage from G-tube stoma site. Patient had recent G-tube replacement due to malfunctioning. Nursing staff at the facility noted increased discomfort along with increased drainage from the stoma site. Upon evaluation vital signs were stable Laboratory work-up revealed no leukocytosis, stable hemoglobin and hematocrit. Stable electrolytes. BUN 25 , creatinine 0.8. Stable LFT. Lipase elevated 625. Urinalysis revealed no evidence of UTI. EKG revealed sinus rhythm, no acute ischemic changes. CT of the abdomen and pelvis demonstrated gastrostomy tube appeared to be in good position. 10 cm mass within the right lobe of the liver, suspicious for malignant neoplasm. Interval growth since 2017 noted. Pathological compression fracture involving T11 and T12 vertebra with retropulsion and kyphosis. Fecal retention and impaction. Pacemaker. Diverticulosis of the colon. No CT evidence of pancreatitis. GI specialist seen the patient in emergency department. There was concern for possible infection of G-tube site. Patient started on empiric antibiotics. Patient subsequently was admitted for further management CONSULTANTS: water systems engineer GI specialist Dr. Gonzales surgery Dr. Cash [facility] COURSE: Patient admitted to telemetry floor. GI specialist followed. Abdominal ultrasound demonstrated solid right lobe liver mass , also reported on recent CT scan , concerning for neoplasm , either primary or metastatic. No gallstones , no dilated bile ducts. Culture from G-tube site revealed Proteus mirabilis Blood culture were negative.. Antibiotics provided. Wound care around G-tube provided with topical antibiotics. Patient was monitored for G tube site leakage. Due to persistent leakage, G-tube was changed to the larger 24 [place] gauge size by GI specialist at the bedside. Patient was able to tolerate tube feeding. No further leakage. Lipid panel was unremarkable. Lipase trended down to normal -189. Bowel regimen instituted. Stool for occult blood was negative . Hemoglobin and hematocrit were closely monitored with goal to keep hemoglobin above 7. Hemoglobin and hematocrit remained at the baseline. Prior to discharge, hemoglobin 10.1 , hematocrit 39.7. GI prophylaxis with PPI provided. Swallow evaluation recommended to continue with the current PEG placement as a primary mode of nutrition and hydration . Patient started on oral gratification with diet texture as per speech therapist recommendation with strict aspiration /reflux precaution and assistance with all meals Patient was on calorie count. Oral intake was not sufficient. Patient required tube feeding to meet nutritional demands. Protein supplements implemented and diet as per registered dietitian recommendation LFT remained stable. Cancer tumor markers: alpha-fetoprotein and CEA were within normal limits . General surgeon followed. Per surgeon, liver mass seen on the CT and ultrasound , likely tumor. Work-up for liver mass, including biopsy , will be done as outpatient. Coal Unloader followed. Pacemaker was functioning adequately. Interrogation was arranged as outpatient. Volumes and cardiorenal parameters were closely monitored. Per cardiology continue current cardiovascular regimen without change No plan for anticoagulation given increased risk for complication. Patient demonstrated stable cardiovascular parameters on current regimen. No signs of acute congestive heart failure as per cardiology. Beta blockage maintained. Statin continued. Aspirin restarted on low-dose. 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 DISCHARGE INSTRUCTIONS: Patient was discharged to the half-way facility. Follow up with medical doctor at the facility. Outpatient pacemaker interrogation arranged. Work-up for liver mass as outpatient. I have been assigned to dictate discharge summary for this account. I was not involved in the patient's management. Rachel Bradshaw NP July 10, 2018 14:02
== END 2018-07-08 16:41 | DRG 393 ==
LOC: EDBD 12:43 → EMR 13:10 → EDBEDREQSVC 14:22 → 2E 15:05 → EDBEDREQ 16:03 → 2E 21:54
PROC: 0D20XUZ Change Feeding Device in Upper Intestinal Tract, External Approach (ICD-10-PCS; principal; 2018-07-06)
DX: K94.22 Gastrostomy infection (principal); K85.90 Acute pancreatitis without necrosis or infection, unspecified; G93.40 Encephalopathy, unspecified; I50.42 Chronic combined systolic (congestive) and diastolic (congestive) heart failure; E44.0 Moderate protein-calorie malnutrition; I13.0 Hypertensive heart and chronic kidney disease with heart failure and stage 1 through stage 4 chronic kidney disease, or unspecified chronic kidney disease; I45.2 Bifascicular block; L03.319 Cellulitis of trunk, unspecified; K94.23 Gastrostomy malfunction; Y83.3 Surgical operation with formation of external stoma as the cause of abnormal reaction of the patient, or of later complication, without mention of misadventure at the time of the procedure; E11.22 Type 2 diabetes mellitus with diabetic chronic kidney disease; N18.9 Chronic kidney disease, unspecified; I48.0 Paroxysmal atrial fibrillation; Z86.73 Personal history of transient ischemic attack (TIA), and cerebral infarction without residual deficits; Z95.0 Presence of cardiac pacemaker; R16.0 Hepatomegaly, not elsewhere classified; F09 Unspecified mental disorder due to known physiological condition; R55 Syncope and collapse; F01.50 Vascular dementia, unspecified severity, without behavioral disturbance, psychotic disturbance, mood disturbance, and anxiety
CPT/HCPCS: 36415; 74176; 76705; 80048; 80053; 80061; 81003; 82105; 82270; 82378; 82962; 83690; 83735; 84100; 85025; 85610; 85730; 87040; 87070; 87081; 87181; 87205; 93005; 96365; 99285; J1815

== ENCOUNTER 2018-08-16 15:13 | Inpatient (IN) | payer MEDICARE, OTHER ==
[~2018-08-16] VITALS: Ht 157.5 cm; Wt 72.6 kg
[~2018-08-16 15:13] MED LIST changes: +DONEPEZIL HCL10 M2 GT; -DONEPEZIL HCL10 M2 ORAL; +LOSARTAN POTASS50 MG GT; +METOPROLOL TART50 M1 GT; -METOPROLOL TART50 M1 ORAL; +PRO-STAT LIQUID30 ML GT; +PROSCAR5 MG HEMO; -VITAMIN D1000 UNI1 ORAL
--- NOTE | 2018-08-16 15:27 | Emergency Room Report ---
History of Present Illness General Chief Complaint: General Complaint Source: Medical Record Present Illness HPI Patient is a 77-year-old male brought in by [facility] ambulance after increased drainage from his G-tube stoma site. Patient had onset of symptoms this morning.Patient was noted to have some prior history of CVA as well as G-tube dependence. He had a prior episode of G-tube infection 1 month ago. Patient had recent had cultures done to the area and was sent in for further evaluation. Patient was noted to have some foul-smelling drainage. Allergies: Coded Allergies: No Known Allergies (Verified , 06/07/08) Patient History Reviewed Nursing Documentation: PMH: Agreed; PSxH: Agreed Nursing Documentation-PMH Hx Cardiac Problems: Yes - Atrial Fibrillation, Pacemaker Hx Hypertension: Yes Hx Pacemaker: Yes Hx Diabetes: Yes Hx Cancer: No Hx Gastrointestinal Problems: Yes - G-tube Hx Neurological Problems: Yes Hx Alzheimer's Disease: Yes Hx Dysphasia: Yes Review of Systems All Other Systems: limited - by poor historian Physical Exam Vital Signs Date Time Temp Pulse Resp B/P (MAP) Pulse Ox O2 Delivery O2 Flow Rate FiO2 08/16/18 15:15 98.1 78 16 125/59 (81) 98 Nasal Cannula 2.0 General Appearance: alert, Chronically Ill Eyes: bilateral eye EOMI ENT: moist mucus membranes Neck: limited range of motion Respiratory: lungs clear, normal breath sounds Cardiovascular #1: normal inspection, normal peripheral pulses Gastrointestinal: other - gtube site without surrounding erythema or warmth, foul smelling drainage, granulation tissue near stoma Musculoskeletal: normal range of motion Neurologic: alert, responsive, aphasia Psychiatric: mood/affect normal Skin: no rash Medical Decision Making Diagnostic Impression: Primary Impression: G-tube site cellulitis ER Course Patient presented for G-tube infection. Differential diagnosis include was not limited to infection, cellulitis, obstruction among others. Because of complexity of patient's case laboratory testing and imaging studies were ordered. Patient was noted to have some prior history of G-tube site infection. He was noted to be G-tube dependent. Patient's stoma appears to have some foul-smelling drainage. Wound was cultured. Patient was noted previously been on Augmentin after similar episode. Patient does not appear to be septic.Dr. Dustin Mary was contacted for inpatient management. Labs Test 08/16/18 15:55 White Blood Count 8.9 K/UL (4.8-10.8) Red Blood Count 4.04 M/UL (4.70-6.10) Hemoglobin 12.0 G/DL (14.2-18.0) Hematocrit 35.9 % (42.0-52.0) Mean Corpuscular Volume 89 FL (80-99) Mean Corpuscular Hemoglobin 29.8 PG (27.0-31.0) Mean Corpuscular Hemoglobin Concent 33.5 G/DL (32.0-36.0) Red Cell Distribution Width 12.2 % (11.6-14.8) Platelet Count 214 K/UL (150-450) Mean Platelet Volume 5.9 FL (6.5-10.1) Neutrophils (%) (Auto) 63.8 % (45.0-75.0) Lymphocytes (%) (Auto) 25.3 % (20.0-45.0) Monocytes (%) (Auto) 9.8 % (1.0-10.0) Eosinophils (%) (Auto) 0.9 % (0.0-3.0) Basophils (%) (Auto) 0.2 % (0.0-2.0) Urine Color Yellow Urine Appearance Clear Urine pH 8 (4.5-8.0) Urine Specific [place] 1.010 (1.005-1.035) Urine Protein 1+ (NEGATIVE) Urine Glucose (UA) Negative (NEGATIVE) Urine Ketones Negative (NEGATIVE) Urine Blood Negative (NEGATIVE) Urine Nitrite Negative (NEGATIVE) Urine Bilirubin Negative (NEGATIVE) Urine Urobilinogen 4 MG/DL (0.0-1.0) Urine Leukocyte Esterase Negative (NEGATIVE) Urine RBC 0-2 /HPF (0 - 0) Urine WBC 0-2 /HPF (0 - 0) Urine Squamous Epithelial Cells Few /LPF (NONE/OCC) Urine Bacteria None /HPF (NONE) Sodium Level 135 MMOL/L (136-145) Potassium Level 4.4 MMOL/L (3.5-5.1) Chloride Level 98 MMOL/L (98-107) Carbon Dioxide Level 32 MMOL/L (21-32) Anion Gap 5 mmol/L (5-15) Blood Urea Nitrogen 18 mg/dL (7-18) Creatinine 0.7 MG/DL (0.55-1.30) Estimat Glomerular Filtration Rate mL/min (>60) Glucose Level 125 MG/DL (74-106) Lactic Acid Level 1.50 mmol/L (0.4-2.0) Calcium Level 10.8 MG/DL (8.5-10.1) Total Bilirubin 0.7 MG/DL (0.2-1.0) Aspartate Amino Transf (AST/SGOT) 42 U/L (15-37) Alanine Aminotransferase (ALT/SGPT) 26 U/L (12-78) Alkaline Phosphatase 318 U/L (46-116) Total Creatine Kinase 13 U/L (26-308) Creatine Kinase MB 0.5 NG/ML (0.0-3.6) Creatine Kinase MB Relative Index 3.8 Troponin I 0.042 ng/mL (0.000-0.056) Total Protein 6.6 G/DL (6.4-8.2) Albumin 2.3 G/DL (3.4-5.0) Globulin 4.3 g/dL Albumin/Globulin Ratio 0.5 (1.0-2.7) Last Vital Signs Date Time Temp Pulse Resp B/P (MAP) Pulse Ox O2 Delivery O2 Flow Rate FiO2 08/16/18 15:15 98.1 78 16 125/59 (81) 98 Nasal Cannula 2.0 Status: improved Disposition: ADMITTED INPATIENT Condition: Stable Pj Lerner MD Aug 16, 2018 15:27
[2018-08-16 16:00] VITALS: BP 131/49
--- NOTE | 2018-08-16 16:00 | NUR ---
ED Nurse Note: pt with interventions done with lab draw, iv start, gtube site cx and urine obtained. urine obtained by straight cath I/O. pt tolerates all well. pt resting with eyes closed in room. opens eys to verbal stimuli. gtube site noted to have redness and yellow drainage to it. new dressing applied to site.
[2018-08-16 16:14] LABS: APPEARANCE,URINE CLEAR; BILIRUBIN, URINE NEGATIVE (NEGATIVE); GLUCOSE, URINE (UA) NEGATIVE (NEGATIVE); KETONES,URINE NEGATIVE (NEGATIVE); LEUKOCYTE ESTERASE ,URINE NEGATIVE (NEGATIVE); NITRITE,URINE NEGATIVE (NEGATIVE); PH,URINE 8 (4.5-8.0); PROTEIN,URINE 1+ (NEGATIVE); UROBILINOGEN,URINE 4 MG/DL (0.0-1.0)
[2018-08-16 16:15] LABS: COLOR,URINE YELLOW
[2018-08-16 16:16] LABS: BASOPHILS % (AUTO) 0.2 % (0.0-2.0); EOSINOPHILS % (AUTO) 0.9 % (0.0-3.0); HEMATOCRIT 35.9 % (42.0-52.0); LYMPHOCYTES % (AUTO) 25.3 % (20.0-45.0); MEAN CORPUSCULAR VOLUME 89 FL (80-99); MONOCYTES % (AUTO) 9.8 % (1.0-10.0); NEUTROPHILS % (AUTO) 63.8 % (45.0-75.0); PLATELET COUNT 214 K/UL (150-450); RED BLOOD COUNT 4.04 M/UL (4.70-6.10); RED CELL DISTRIBUTION WIDTH 12.2 % (11.6-14.8); WHITE BLOOD COUNT 8.9 K/UL (4.8-10.8)
[2018-08-16 16:24] LABS: ANION GAP 5 mmol/L (5-15); BLOOD UREA NITROGEN 18 mg/dL (7-18); CALCIUM 10.8 MG/DL (8.5-10.1); CARBON DIOXIDE 32 MMOL/L (21-32); CHLORIDE 98 MMOL/L (98-107); CREATININE 0.7 MG/DL (0.55-1.30); POTASSIUM 4.4 MMOL/L (3.5-5.1); SODIUM 135 MMOL/L (136-145)
[2018-08-16 16:38] LABS: ALANINE AMINOTRANSFERASE 26 U/L (12-78); ALBUMIN 2.3 G/DL (3.4-5.0); ALBUMIN/GLOBULIN RATIO 0.5 (1.0-2.7); ALKALINE PHOSPHATASE 318 U/L (46-116); ASPARTATE AMINO TRANSFERASE 42 U/L (15-37); BILIRUBIN,TOTAL 0.7 MG/DL (0.2-1.0); CKMB 0.5 NG/ML (0.0-3.6); CREATINE KINASE 13 U/L (26-308)
--- NOTE | 2018-08-16 16:57 | Diagnostic Imaging Report ---
Indication: Shortness of breath Technique: One view of the chest Comparison: 09/16/2015 Findings: The heart is mildly enlarged. The lungs and pleural spaces are clear. There is a left chest pacemaker noted. Impression: Mild cardiomegaly. Pacemaker. No acute process
[2018-08-16 17:00] VITALS: BP 149/49
[2018-08-16 18:00] VITALS: BP 149/55
--- NOTE | 2018-08-16 18:00 | NUR ---
ED Nurse Note: pt awaiting bed assignment. pt cleansed of incontinent formed stool and urine. admission swabs sent as per protocol. pt tolerates well. pt with intermittant coarse non productive cough noted. pt remains at same mentation of open eyes when spoken to.. vss. belongings list done
[2018-08-16 19:05] VITALS: BP 132/51
--- NOTE | 2018-08-16 19:05 | NUR ---
ED Nurse Note: pt looks calm and comfortable, pt is cooperative. Pt is arousable to name, touch. vss at the moment, skin intact, gtube located at upper left Quadrant, dressed and locked. pt denies pain at this moment. will continue to monitor.
--- NOTE | 2018-08-16 19:36 | NUR ---
Note carmenone in EDM - 08/16/18 at 1938 by LONNIE ED Nurse Note: pt looks calm and comfortable, pt is cooperative. Pt is arousable to name, touch. vss at the moment, skin intact, gtube located at upper left Quadrant, dressed and locked. pt denies pain at this moment. will continue to monitor.
[2018-08-16] MEDS ORDERED: cefTRIAXone 1 GM in NS 55 ML IVPB ONE (20:00)
[2018-08-16 20:41] VITALS: BP 144/55
--- NOTE | 2018-08-16 20:50 | NUR ---
ED Nurse Note: PT BP WENT DOWN TO 87/55, ERMD AWARE. T.O ORDER 500 L NS.
--- NOTE | 2018-08-16 20:58 | NUR ---
ED Nurse Note: RECYCLED BP, STABLIZED AT 146/81 Addendum: 08/16/18 at 2058 by PDELEON ED Nurse Note: RECYCLED BP, STABLIZED AT 148/61
--- NOTE | 2018-08-16 21:00 | NUR ---
ED Nurse Note: RECEIVED BED ASSIGNMENT AT 2100
--- NOTE | 2018-08-16 21:08 | NUR ---
ED Nurse Note: PT DEFACTED AND URINATED ON SELF, PT WAS CLEANED AND REDRESSED.
--- NOTE | 2018-08-16 21:09 | NUR ---
ED Nurse Note: CALLED TELE PER ODALYS CARO FOR ARLIN RN TO CALL BACK
--- NOTE | 2018-08-16 21:29 | NUR ---
ED Nurse Note: TELEPHONE ENDORSEMENT GIVEN TO ISMAEL VENTURA. WILL SEND PT UP.
--- NOTE | 2018-08-16 21:32 | NUR ---
ED Nurse Note: pt brought up with chema rn and reymundo emt. pt is aox1, on room air pt shows no signs of distress, vss, pt skin intact, pt clean. all belongings sent with pt
[2018-08-17] VITALS: BP 144/70
--- NOTE | 2018-08-17 | NUR ---
Pt arrived on gurney from ER. Got report from Veronika GUEVARA. Pt in stable condition. No s/s of distress or discomfort noted. Skin intact no skin issues noted. Pt unable to answer any of my questions. Per report pt is A+Ox1. Pt able to move eyes spontaneously and move around in bed pt is weak. Pt is incontinent. Pt has G-tube in upper left quadrant site intact. VSS BP:144/70 HR:82 T:97.4 O2:96% on room air. Pt resting in bed comfortably. Bed in low and locked position, call light within reach, bedside table within reach. Continue to monitor. Paged Dr. Mary for orders. Orders given and placed.
[2018-08-17] MEDS ORDERED: Acetaminophen 650mg/20.3ml GT PRN (00:30)
[2018-08-17] MEDS ORDERED: HydrALAZINE 25mg tab GT PRN (01:00)
[2018-08-17] MEDS ORDERED: Vancomycin 1.5gm Premix 275 ML IVPB SCH (02:00)
[2018-08-17 04:18] VITALS: BP 150/65
[2018-08-17] MEDS ORDERED: Piperacillin/Tazobactam 3.375 GM in NS 110 ML IVPB SCH (06:00)
[2018-08-17] MEDS: metFORMIN 500mg tab GT SCH ×2 (06:08→16:30)
[2018-08-17] MEDS: NovoLOG Insulin Flexpen SUBQ SCH ×5 (06:09→21:00)
--- NOTE | 2018-08-17 07:00 | NUR ---
HAND-OFF: Report given to Elida GUEVARA. Endorsed plan of care.
[2018-08-17 07:08] LABS: BASOPHILS % (AUTO) 0.5 % (0.0-2.0); EOSINOPHILS % (AUTO) 0.8 % (0.0-3.0); HEMATOCRIT 38.3 % (42.0-52.0); HEMOGLOBIN 12.9 G/DL (14.2-18.0); LYMPHOCYTES % (AUTO) 19.2 % (20.0-45.0); MEAN CORPUSCULAR VOLUME 91 FL (80-99); MONOCYTES % (AUTO) 8.6 % (1.0-10.0); NEUTROPHILS % (AUTO) 70.9 % (45.0-75.0); PLATELET COUNT 212 K/UL (150-450); RED CELL DISTRIBUTION WIDTH 13.2 % (11.6-14.8)
[2018-08-17 07:48] LABS: ANION GAP 5 mmol/L (5-15); BLOOD UREA NITROGEN 13 mg/dL (7-18); CALCIUM 10.6 MG/DL (8.5-10.1); CARBON DIOXIDE 30 MMOL/L (21-32); CHLORIDE 99 MMOL/L (98-107); CREATININE 0.7 MG/DL (0.55-1.30); POTASSIUM 4.4 MMOL/L (3.5-5.1); SODIUM 134 MMOL/L (136-145)
--- NOTE | 2018-08-17 07:52 | NUR ---
NURSE NOTES: Received report from Tray GUEVARA. Pt is sleeping in bed. Pt on personnel monitor does not show any sign of cardiac or respiratory distress. Bed locked in in lowest position. Call light with in reach. Will continue to follow plan of care.
[2018-08-17 08:00] VITALS: BP 154/68
[2018-08-17] MEDS: Losartan 50mg tab GT SCH (09:00)
--- NOTE | 2018-08-17 09:12 | NUR ---
NURSE NOTES: notified Dr Rene about Gtube malfunctioning and asking for different route to administer medication. said he will take care of it.
[2018-08-17] MEDS: Heparin 5000 units/ml inj SUBQ SCH (09:25)
--- NOTE | 2018-08-17 09:47 | NUR ---
NURSE NOTES: notified Dr. Hay about pt high blood pressure 153/68.
[2018-08-17 12:00] VITALS: BP 153/68
--- NOTE | 2018-08-17 12:01 | NUR ---
Doctor Usman confirmed he wants pt to receive protonix Q D. Advised pharmacy order has been changed.
[2018-08-17] MEDS ORDERED: Vancomycin 1.25gm Premix IVPB ONE (13:00)
--- NOTE | 2018-08-17 13:08 | NUR ---
IV antibiotics from 12 and 1300 are not here yet. Will administer once they are deliver to tele.
--- NOTE | 2018-08-17 13:30 | Consultation ---
History of Present Illness General Date patient seen: Aug 17, 2018 Chief Complaint: General Complaint Present Illness HPI This is a very pleasant 77-year-old male known to me from prior admissions. Patient presented from [facility] with increased drainage and abnormal wound around his G-tube site. Surgery was called to evaluate and assist with care. Patient seen, patient evaluated, chart reviewed. Labs identified patient afebrile hemodynamic is stable. Imaging noted. Allergies: Coded Allergies: No Known Allergies (Verified , 06/07/08) Medication History Scheduled Amino Acids/Protein Hydrolys (Pro-Stat Liquid), 30 ML GT EVERY 8 HOURS, ( Reported) Atorvastatin Calcium* (Lipitor*), 10 MG GT BEDTIME, (Reported) Atorvastatin Calcium* (Atorvastatin Calcium*), 10 MG GT BEDTIME, (Reported) Ca Carbonate/Vitamin D3/Vit K (Calcium + D Soft Chewable Tab), 1 EACH PO BID, ( Reported) Cholecalciferol (Vitamin D3)* (Vitamin D*), 1,000 UNITS ORAL TWICE A DAY, ( Reported) Cholecalciferol (Vitamin D3)* (Vitamin D*), 1,000 UNIT GT DAILY, (Reported) Donepezil Hcl (Aricept), 10 MG GT DAILY, (Reported) Donepezil Hcl* (Donepezil Hcl*), 10 MG ORAL BEDTIME, (Reported) Escitalopram Oxalate* (Lexapro*), 10 MG ORAL DAILY, (Reported) Finasteride* (Proscar*), 5 MG HEMO DAILY, (Reported) Furosemide (Furosemide), 20 MG IV Q AM, (Reported) Furosemide* (Lasix*), 40 MG ORAL DAILY, (Reported) Hum Insulin Nph/Reg Insulin Hm (Humulin 70-30 Vial), 50 UNITS SUBQ Q AM, ( Reported) Hum Insulin Nph/Reg Insulin Hm (Humulin 70-30 Vial), 20 UNITS SUBQ Q PM, ( Reported) Hydralazine HCl (Hydralazine HCl), 50 MG ORAL EVERY 8 HOURS, (Reported) Hydralazine Hcl* (Hydralazine Hcl*), 50 MG ORAL Q12HR, (Reported) Insulin Glargine (Lantus), 0 SUBQ BEDTIME, (Reported) Levothyroxine Sodium* (Levothyroxine Sodium*), 50 MCG ORAL DAILY, (Reported) Levothyroxine Sodium* (Levothyroxine Sodium*), 50 MCG ORAL DAILY, (Reported) Levothyroxine Sodium* (Levothyroxine Sodium), 50 MCG GT DAILY, (Reported) Losartan Potassium* (Losartan Potassium*), 100 MG ORAL DAILY, (Reported) Metformin Hcl* (Metformin Hcl*), 850 MG ORAL THREE TIMES A DAY, (Reported) Metformin Hcl* (Metformin Hcl*), 500 MG GT TWICE A DAY, (Reported) Metoprolol Tartrate* (Metoprolol Tartrate*), 50 MG ORAL BID, (Reported) Metoprolol Tartrate* (Metoprolol Tartrate*), 50 MG ORAL EVERY 12 HOURS, ( Reported) Metoprolol Tartrate* (Metoprolol Tartrate*), 50 MG GT EVERY 12 HOURS, (Reported) Multivitamin (Daily Multiple Vitamin), 1 TAB ORAL DAILY, (Reported) Rivastigmine Tartrate (Exelon), 4.6 MG TD DAILY, (Reported) Simvastatin (Zocor), 20 MG ORAL BEDTIME, (Reported) Sitagliptin* (Januvia*), 100 MG GT DAILY, (Reported) Sitagliptin* (Januvia*), 100 MG GT DAILY, (Reported) Tamsulosin Hcl (Tamsulosin Hcl*), 0.4 MG GT BEDTIME, (Reported) Scheduled PRN Acetaminophen* (Acetaminophen 325MG Tablet*), 650 MG GT Q4H PRN for For Pain, ( Reported) Insulin Aspart* (Novolog*), 0 SUBQ AC+HS PRN for Per rx protocol, (Reported) Miscellaneous Medications Docusate Sodium (Docusate Sodium), 50 MG GT, (Reported) Hydralazine HCl (Hydralazine HCl), 25 MG GT, (Reported) Insulin Aspart (Novolog), 100 UNIT SQ, (Reported) Patient History Limited by: medical condition History Provided By: Medical Record, PMD Healthcare decision maker Resuscitation status Advanced Directive on File Past Medical/Surgical History Past Medical/Surgical History: (1) Malnutrition (2) CVA (cerebral vascular accident) (3) LFT elevation (4) Pancreatitis (5) Atrial fibrillation and flutter (6) CHF (congestive heart failure) (7) Syncope (8) ACS (acute coronary syndrome) (9) Episode of generalized weakness (10) Skin infection at gastrostomy tube site (11) Skin infection at gastrostomy tube site (12) Dehydration (13) G-tube site cellulitis Review of Systems ROS Narrative Cannot obtain given patient's current medical condition Physical Exam General Appearance: no apparent distress Lines, tubes and drains: peripheral HEENT: mucous membranes moist Neck: normal inspection Respiratory/Chest: normal breath sounds, no respiratory distress, no accessory muscle use Cardiovascular/Chest: normal rate Abdomen: soft, no organomegaly, no mass, other - G-tube site with some hyper granulation of tissue no bleeding no other abnormality noted Extremities: non-tender Skin Exam: warm/dry Neurologic: alert Last 24 Hour Vital Signs Date Time Temp Pulse Resp B/P (MAP) Pulse Ox O2 Delivery O2 Flow Rate FiO2 08/17/18 12:00 98.1 78 17 153/68 (96) 96 08/17/18 08:00 97.8 89 17 154/68 (96) 97 08/17/18 08:00 90 08/17/18 04:18 97.0 85 20 150/65 (93) 96 08/17/18 04:00 77 08/17/18 02:12 Room Air 08/17/18 00:00 76 08/17/18 00:00 97.4 82 20 144/70 (94) 96 08/17/18 00:00 Room Air 08/16/18 21:32 97.9 73 16 158/47 95 Room Air 08/16/18 20:41 98.3 76 12 144/55 100 Room Air 08/16/18 19:05 98.1 73 14 132/51 99 Room Air 08/16/18 18:00 75 16 149/55 100 Room Air 08/16/18 17:17 78 16 Nasal Cannula 2.0 08/16/18 17:00 75 16 149/49 100 Room Air 08/16/18 16:00 74 16 131/49 100 Room Air 08/16/18 15:15 98.1 78 16 125/59 (81) 98 Nasal Cannula 2.0 Intake and Output 08/16/18 08/17/18 19:00 07:00 Intake Total 0 ml 55 ml Output Total 50 ml 300 ml Balance -50 ml -245 ml Intake Oral 0 ml 0 ml IV Total 55 ml Output Urine Total 50 ml 300 ml # Voids 2 # Bowel Movements 3 Laboratory Tests Test 08/16/18 15:55 08/17/18 05:55 White Blood Count 8.9 K/UL (4.8-10.8) 9.0 K/UL (4.8-10.8) Red Blood Count 4.04 M/UL (4.70-6.10) L 4.20 M/UL (4.70-6.10) L Hemoglobin 12.0 G/DL (14.2-18.0) L 12.9 G/DL (14.2-18.0) L Hematocrit 35.9 % (42.0-52.0) L 38.3 % (42.0-52.0) L Mean Corpuscular Volume 89 FL (80-99) 91 FL (80-99) Mean Corpuscular Hemoglobin 29.8 PG (27.0-31.0) 30.8 PG (27.0-31.0) Mean Corpuscular Hemoglobin Concent 33.5 G/DL (32.0-36.0) 33.8 G/DL (32.0-36.0) Red Cell Distribution Width 12.2 % (11.6-14.8) 13.2 % (11.6-14.8) Platelet Count 214 K/UL (150-450) 212 K/UL (150-450) Mean Platelet Volume 5.9 FL (6.5-10.1) L 6.3 FL (6.5-10.1) L Neutrophils (%) (Auto) 63.8 % (45.0-75.0) 70.9 % (45.0-75.0) Lymphocytes (%) (Auto) 25.3 % (20.0-45.0) 19.2 % (20.0-45.0) L Monocytes (%) (Auto) 9.8 % (1.0-10.0) 8.6 % (1.0-10.0) Eosinophils (%) (Auto) 0.9 % (0.0-3.0) 0.8 % (0.0-3.0) Basophils (%) (Auto) 0.2 % (0.0-2.0) 0.5 % (0.0-2.0) Urine Color Yellow Urine Appearance Clear Urine pH 8 (4.5-8.0) Urine Specific [place] 1.010 (1.005-1.035) Urine Protein 1+ (NEGATIVE) H Urine Glucose (UA) Negative (NEGATIVE) Urine Ketones Negative (NEGATIVE) Urine Blood Negative (NEGATIVE) Urine Nitrite Negative (NEGATIVE) Urine Bilirubin Negative (NEGATIVE) Urine Urobilinogen 4 MG/DL (0.0-1.0) H Urine Leukocyte Esterase Negative (NEGATIVE) Urine RBC 0-2 /HPF (0 - 0) H Urine WBC 0-2 /HPF (0 - 0) Urine Squamous Epithelial Cells Few /LPF (NONE/OCC) Urine Bacteria None /HPF (NONE) Sodium Level 135 MMOL/L (136-145) L 134 MMOL/L (136-145) L Potassium Level 4.4 MMOL/L (3.5-5.1) 4.4 MMOL/L (3.5-5.1) Chloride Level 98 MMOL/L (98-107) 99 MMOL/L (98-107) Carbon Dioxide Level 32 MMOL/L (21-32) 30 MMOL/L (21-32) Anion Gap 5 mmol/L (5-15) 5 mmol/L (5-15) Blood Urea Nitrogen 18 mg/dL (7-18) 13 mg/dL (7-18) Creatinine 0.7 MG/DL (0.55-1.30) 0.7 MG/DL (0.55-1.30) Estimat Glomerular Filtration Rate mL/min (>60) mL/min (>60) Glucose Level 125 MG/DL (74-106) H 103 MG/DL (74-106) Lactic Acid Level 1.50 mmol/L (0.4-2.0) Calcium Level 10.8 MG/DL (8.5-10.1) H 10.6 MG/DL (8.5-10.1) H Total Bilirubin 0.7 MG/DL (0.2-1.0) Aspartate Amino Transf (AST/SGOT) 42 U/L (15-37) H Alanine Aminotransferase (ALT/SGPT) 26 U/L (12-78) Alkaline Phosphatase 318 U/L (46-116) H Total Creatine Kinase 13 U/L (26-308) L Creatine Kinase MB 0.5 NG/ML (0.0-3.6) Creatine Kinase MB Relative Index 3.8 Troponin I 0.042 ng/mL (0.000-0.056) Total Protein 6.6 G/DL (6.4-8.2) Albumin 2.3 G/DL (3.4-5.0) L Globulin 4.3 g/dL Albumin/Globulin Ratio 0.5 (1.0-2.7) L Microbiology Date/Time Source Procedure Growth Status 08/16/18 15:55 Abdomen Gram Stain - Final Resulted 08/16/18 15:55 Abdomen Wound Culture Pending Resulted Height (Feet): 5 Height (Inches): 2.00 Weight (Pounds): 160 Medications Current Medications Medications (Trade) Dose Ordered Sig/Reagan Route PRN Reason Start Time Stop Time Status Last Admin Dose Admin Acetaminophen (Tylenol) 650 mg Q4HR PRN GT Pain and Temp>100.4 08/17/18 00:30 09/16/18 00:29 Al Hydroxide/Mg Hydroxide (Mylanta) 30 ml Q4HR PRN GT Antacid 08/17/18 00:30 09/16/18 00:29 Atorvastatin Calcium (Lipitor) 10 mg BEDTIME GT 08/17/18 21:00 09/16/18 20:59 Dextrose (Dextrose 50%) 25 ml Q30M PRN IV Hypoglycemia 08/17/18 01:15 09/16/18 01:14 Dextrose (Dextrose 50%) 50 ml Q30M PRN IV Hypoglycemia 08/17/18 01:15 09/16/18 01:14 Donepezil HCl (Aricept) 10 mg QHS GT 08/17/18 21:00 09/16/18 20:59 Heparin Sodium (Porcine) (Heparin 5000 units/ml) 5,000 units EVERY 12 HOURS SUBQ 08/17/18 09:00 09/16/18 08:59 08/17/18 09:25 Hydralazine HCl (Apresoline) 25 mg Q6H PRN GT SBP>150 08/17/18 01:00 09/16/18 00:59 Insulin Aspart (NovoLOG) BEFORE MEALS AND HS SUBQ 08/17/18 06:30 09/16/18 06:29 Losartan Potassium (Cozaar) 100 mg DAILY GT 08/17/18 09:00 09/16/18 08:59 Metformin HCl (Glucophage) 500 mg BID@0630,1630 GT 08/17/18 06:30 09/16/18 06:29 Piperacillin Sod/ Tazobactam Sod 3.375 gm/Sodium Chloride 110 ml @ 27.5 mls/hr EVERY 8 HOURS IVPB 08/17/18 14:00 08/22/18 13:59 Sitagliptin Phosphate (Januvia) 100 mg ACBREAKFAST GT 08/17/18 06:30 09/16/18 06:29 Vancomycin HCl (Vanco rx to dose) 1 ea DAILY PRN MISC Per rx protocol 08/17/18 00:30 09/16/18 00:29 Vancomycin HCl 750 mg/Sodium Chloride 275 ml @ 183.333 mls/hr Q12H IVPB 08/17/18 23:00 08/22/18 22:59 Vancomycin HCl/ Dextrose 275 ml @ 183.333 mls/hr ONCE ONCE IVPB 08/17/18 13:00 08/17/18 14:29 08/17/18 13:26 Assessment/Plan Problem List: (1) G-tube site cellulitis Assessment & Plan: 77-year-old male presented with some G-tube site cellulitis as well as of hyper granulation of the tissues around the G-tube site and some leakage. Site evaluated bedside and noted to be which is some hyper granulation of tissue that has been growing around the G-tube site. Otherwise stable and tube in good positioning Recommend silver nitrate in the area granulation tissue around the G-tube. Continue with tube feeds as tolerated. Continue with dressings around G-tube. We will monitor over the next 24 hours. Thank you for allowing me to participate in patient's care. We will follow with Recs ICD Codes: K94.22 - Gastrostomy infection; L03.319 - Cellulitis of trunk, unspecified SNOMED: 058663867, 738246324 (2) Dehydration ICD Codes: E86.0 - Dehydration SNOMED: 57898169 (3) Atrial fibrillation and flutter ICD Codes: I48.91 - Unspecified atrial fibrillation; I48.92 - Unspecified atrial flutter SNOMED: 075667863 (4) CHF (congestive heart failure) ICD Codes: I50.9 - Heart failure, unspecified SNOMED: 67863364 (5) Pancreatitis ICD Codes: K85.90 - Acute pancreatitis without necrosis or infection, unspecified SNOMED: 18848415 (6) Syncope ICD Codes: R55 - Syncope and collapse SNOMED: 303761937 (7) Malnutrition ICD Codes: E46 - Unspecified protein-calorie malnutrition SNOMED: 04685814 (8) CVA (cerebral vascular accident) ICD Codes: I63.9 - CVA (cerebral vascular accident) SNOMED: 702674128 (9) ACS (acute coronary syndrome) ICD Codes: I24.9 - Acute ischemic heart disease, unspecified SNOMED: 443112257 (10) Episode of generalized weakness ICD Codes: R53.1 - Weakness SNOMED: 65831718 (11) LFT elevation ICD Codes: R94.5 - Abnormal results of liver function studies SNOMED: 719857056, 915868114 (12) Skin infection at gastrostomy tube site ICD Codes: K94.22 - Skin infection at gastrostomy tube site; L08.9 - Local infection of the skin and subcutaneous tissue, unspecified SNOMED: 708816813 (13) Skin infection at gastrostomy tube site ICD Codes: K94.22 - Gastrostomy infection; L08.9 - Local infection of the skin and subcutaneous tissue, unspecified SNOMED: 511564098, 279721808 Jesse Cash Aug 17, 2018 13:30
--- NOTE | 2018-08-17 14:40 | NUR ---
notified dr. Mary about 147/63 blood pressure. No new orders given.
[2018-08-17] MEDS: Zosyn 3.375gm q8h **Extended infusion IVPB SCH ×2 (15:26)
[2018-08-17 16:00] VITALS: BP 133/59
[2018-08-17] MEDS ORDERED: Silver Nitrate Stick TOPIC SCH (16:00)
--- NOTE | 2018-08-17 17:47 | General Progress Note ---
Subjective Allergies: Coded Allergies: No Known Allergies (Verified , 06/07/08) Objective Last 24 Hour Vital Signs Date Time Temp Pulse Resp B/P (MAP) Pulse Ox O2 Delivery O2 Flow Rate FiO2 08/17/18 16:00 98.3 87 18 133/59 (83) 97 08/17/18 16:00 78 08/17/18 12:00 98.1 78 17 153/68 (96) 96 08/17/18 12:00 78 08/17/18 09:00 Room Air 08/17/18 08:00 97.8 89 17 154/68 (96) 97 08/17/18 08:00 90 08/17/18 04:18 97.0 85 20 150/65 (93) 96 08/17/18 04:00 77 08/17/18 02:12 Room Air 08/17/18 00:00 76 08/17/18 00:00 97.4 82 20 144/70 (94) 96 08/17/18 00:00 Room Air 08/16/18 21:32 97.9 73 16 158/47 95 Room Air 08/16/18 20:41 98.3 76 12 144/55 100 Room Air 08/16/18 19:05 98.1 73 14 132/51 99 Room Air 08/16/18 18:00 75 16 149/55 100 Room Air Intake and Output 08/16/18 08/17/18 19:00 07:00 Intake Total 0 ml 55 ml Output Total 50 ml 300 ml Balance -50 ml -245 ml Intake Oral 0 ml 0 ml IV Total 55 ml Output Urine Total 50 ml 300 ml # Voids 2 # Bowel Movements 3 Laboratory Tests 08/17/18 05:55: White Blood Count 9.0, Red Blood Count 4.20L, Hemoglobin 12.9L, Hematocrit 38.3L , Mean Corpuscular Volume 91, Mean Corpuscular Hemoglobin 30.8, Mean Corpuscular Hemoglobin Concent 33.8, Red Cell Distribution Width 13.2, Platelet Count 212, Mean Platelet Volume 6.3L, Neutrophils (%) (Auto) 70.9, Lymphocytes ( %) (Auto) 19.2L, Monocytes (%) (Auto) 8.6, Eosinophils (%) (Auto) 0.8, Basophils (%) (Auto) 0.5, Sodium Level 134L, Potassium Level 4.4, Chloride Level 99, Carbon Dioxide Level 30, Anion Gap 5, Blood Urea Nitrogen 13, Creatinine 0.7, Estimat Glomerular Filtration Rate , Glucose Level 103, Calcium Level 10.6H Height (Feet): 5 Height (Inches): 2.00 Weight (Pounds): 160 Dustin Mary MD Aug 17, 2018 17:47
--- NOTE | 2018-08-17 17:47 | History & Physical ---
History and Physical History & Physicial HPI Patient is a 77-year-old male brought in by [facility] after increased drainage from his G-tube stoma site. Patient had recently had a G-tube replacement and admission. There is noted to be increased drainage from the stoma site. Patient a prior history of diabetes and malnutrition. He has had a GT for some years. He has chronically in a SNF GI consulted for GT leakage/infection as well as GS. Patient with similar episode in the past with concern for some discolored skin. Patient is unable to give any history. patient seen awake with no active s/sx of active gi symptoms. GT site assessed noted to have some drainage and maceration around the site. Labs reviewed; and has had abnormal Liver imaging Meds reviewed and reconciled Allergies: Coded Allergies: No Known Allergies (Verified , 06/07/08) Past Medical History: dementia, diabetes, hypertension, aspiration, GT Social History: Denies: smoking, alcohol use, drug use, Physical WDWN NAD clear breath sounds bilaterally without rhonchi or wheeze [id number] without MRG NABS nontender no HSM; gt stoma erythema and drainage no CCE confused Laboratory Tests Test 08/17/18 05:55 White Blood Count 9.0 K/UL (4.8-10.8) Red Blood Count 4.20 M/UL (4.70-6.10) L Hemoglobin 12.9 G/DL (14.2-18.0) L Hematocrit 38.3 % (42.0-52.0) L Mean Corpuscular Volume 91 FL (80-99) Mean Corpuscular Hemoglobin 30.8 PG (27.0-31.0) Mean Corpuscular Hemoglobin Concent 33.8 G/DL (32.0-36.0) Red Cell Distribution Width 13.2 % (11.6-14.8) Platelet Count 212 K/UL (150-450) Mean Platelet Volume 6.3 FL (6.5-10.1) L Neutrophils (%) (Auto) 70.9 % (45.0-75.0) Lymphocytes (%) (Auto) 19.2 % (20.0-45.0) L Monocytes (%) (Auto) 8.6 % (1.0-10.0) Eosinophils (%) (Auto) 0.8 % (0.0-3.0) Basophils (%) (Auto) 0.5 % (0.0-2.0) Sodium Level 134 MMOL/L (136-145) L Potassium Level 4.4 MMOL/L (3.5-5.1) Chloride Level 99 MMOL/L (98-107) Carbon Dioxide Level 30 MMOL/L (21-32) Anion Gap 5 mmol/L (5-15) Blood Urea Nitrogen 13 mg/dL (7-18) Creatinine 0.7 MG/DL (0.55-1.30) Estimat Glomerular Filtration Rate mL/min (>60) Glucose Level 103 MG/DL (74-106) Calcium Level 10.6 MG/DL (8.5-10.1) H IMPRESSION gt stoma site infection dementia anemia diabetes hypertension PLAN antibiotics wound care GI and GS maintain snf meds care as is impression, plan, and exam edited and reviewed in detail care discussed with Dustin Bryan MD Aug 17, 2018 17:47
--- NOTE | 2018-08-17 19:38 | NUR ---
NURSE NOTES: report given to Roscoe GUEVARA. Pt in stable condition no cardiac or respiratory distress.
[2018-08-17 20:00] VITALS: BP 105/67
--- NOTE | 2018-08-17 20:01 | NUR ---
NURSE NOTES: notified Dr. Rene about Gtube issues. Also waiting to confirm if gtube is able to be used and type of feeding pt will be in.
[2018-08-17] MEDS: Donepezil 10mg tab GT SCH (21:00)
[2018-08-18] VITALS: BP 117/78
[2018-08-18] MEDS: Zosyn 3.375gm q8h **Extended infusion IVPB SCH ×6 (01:29→19:30)
--- NOTE | 2018-08-18 03:30 | Consultation ---
DATE OF CONSULTATION: 08/16/2018 CARDIOLOGY CONSULTATION CONSULTING PHYSICIAN: Marcellus Richards M.D. REQUESTING PHYSICIAN: Dustin Mary M.D. REASON FOR CONSULTATION: Cardiomyopathy and permanent pacemaker in the setting of cellulitis and sepsis. HISTORY OF PRESENT ILLNESS: This is a 77-year-old male. He has a known history of hypertensive heart disease with a permanent pacemaker and chronic systolic and diastolic congestive heart failure. He has a history of paroxysmal atrial fibrillation as well and progressive dementia due to cerebrovascular disease. He has a G-tube due to dysphagia and has developed worsening drainage and signs of infection around the site. PAST MEDICAL HISTORY: 1. Hypothyroidism. 2. Type 2 diabetes mellitus. 3. Hyperlipidemia. 4. Prostatic hypertrophy. 5. Cerebrovascular disease. 6. Dementia. 7. Hypertensive heart disease. 8. Systolic and diastolic congestive heart failure. 9. Permanent pacemaker. MEDICATIONS: Reviewed. ALLERGIES: None known. SOCIAL HISTORY: No active smoking. Moderate alcohol in the past. No substance abuse. REVIEW OF SYSTEMS: Review of systems performed. All systems negative other than noted above. PHYSICAL EXAMINATION: VITAL SIGNS: Blood pressure 153/68, pulse 78, and respirations 17. Afebrile. HEENT: Temporal wasting. Arcus senilis. Oropharynx clear. NECK: Supple. LUNGS: Diminished breath sounds. CARDIAC: Regular rhythm and rate. Normal S1, S2 with a 1/6 systolic apical murmur. Pacemaker pocket site clean and dry. ABDOMEN: Soft. No focal tenderness. G-tube site with dressing in place. Drainage and erythema around the site. EXTREMITIES: No clubbing or cyanosis. There is trace dependent edema. NEUROLOGIC: With mild cognitive changes. LABORATORY DATA: Notable for sodium 135, potassium 4.4, BUN 18, creatinine 0.7, and glucose 125. Troponin negative. Albumin 2.3. Lactic acid 1.5. White count 8.9 and hemoglobin 12. IMPRESSION: 1. G-tube site with cellulitis. 2. Chronic systolic and diastolic congestive heart failure. 3. Permanent pacemaker with stable function, recently interrogated. 4. Paroxysmal atrial fibrillation. 5. Cerebrovascular disease with dementia. PLAN: 1. Skin wound care. 2. Antimicrobials. 3. Maintain cardiovascular regimen. 4. No anticoagulation in view of bleeding and fall risks. Marcellus Richards M.D. DR: KARLEE JOB#: [id number] CC:
--- NOTE | 2018-08-18 03:30 | Progress Note ---
DATE: 08/17/2018 CARDIOLOGY PROGRESS NOTE SUBJECTIVE: Wound care is ongoing. The patient is without distress. OBJECTIVE: VITAL SIGNS: Afebrile, blood pressure 133/59, heart rate 87, and respirations 18. Monitored rhythm, atrial fibrillation with ventricular pacing. LUNGS: Clear. CARDIAC: Regular. Normal S1, S2 with a 1/6 systolic murmur. ABDOMEN: Soft. G-tube site dressing in place. EXTREMITIES: Trace edema. LABORATORY DATA: Reviewed. IMPRESSION: 1. G-tube site cellulitis. 2. Hypertensive cardiomyopathy. 3. Permanent pacemaker. 4. Paroxysmal atrial fibrillation. 5. Cerebrovascular disease with dementia. 6. Fall and bleeding risk. PLAN: 1. Wound care. 2. Antimicrobials. 3. No plans for anticoagulation in this clinical setting. 4. Cardiovascular regimen reviewed and updated. Marcellus Richards M.D. DR: KARLEE JOB#: [id number] CC:
[2018-08-18 04:00] VITALS: BP 120/46
[2018-08-18] MEDS: Vancomycin 750mg/NS 275ml IVPB SCH ×4 (05:57→17:50)
[2018-08-18] MEDS: NovoLOG Insulin Flexpen SUBQ SCH ×4 (06:30→21:00)
[2018-08-18] MEDS: metFORMIN 500mg tab GT SCH ×2 (06:30→16:30)
--- NOTE | 2018-08-18 07:20 | NUR ---
HAND-OFF: Report given to ISMAEL Marrero. Endorsed plan of care.
--- NOTE | 2018-08-18 07:25 | NUR ---
NURSE NOTES: Received report from Pj GUEVARA. Pt is in bed sleeping. 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 Bed in lowest position and locked. Call light is within reach. Will continue to follow plan of care.
[2018-08-18 08:00] VITALS: BP 148/61
--- NOTE | 2018-08-18 08:30 | NUR ---
NURSE NOTES: ok to use GTube if it is flushing per Dr. Gonzales.
[2018-08-18] MEDS: Heparin 5000 units/ml inj SUBQ SCH ×3 (09:00→23:19)
[2018-08-18] MEDS: Losartan 50mg tab GT SCH (10:00)
[2018-08-18] MEDS: Metoprolol Succinate XL 25mg tab ORAL SCH (10:01)
--- NOTE | 2018-08-18 10:52 | General Progress Note ---
Assessment/Plan Assessment/Plan: IMPRESSION gt stoma site infection dementia anemia diabetes hypertension PLAN antibiotics as is wound care- check final cultures GI and GS maintain snf meds care as is; dc in am impression, plan, and exam edited and reviewed in detail care discussed with RN Subjective Allergies: Coded Allergies: No Known Allergies (Verified , 06/07/08) Subjective care noted multiple cultures noted Objective Last 24 Hour Vital Signs Date Time Temp Pulse Resp B/P (MAP) Pulse Ox O2 Delivery O2 Flow Rate FiO2 08/18/18 10:01 67 148/61 08/18/18 10:00 148/61 08/18/18 09:00 Room Air 08/18/18 08:00 97.4 67 22 148/61 (90) 100 08/18/18 04:00 97.1 92 17 120/46 (70) 98 08/18/18 04:00 92 08/18/18 00:00 97.6 96 18 117/78 (91) 98 08/17/18 21:00 Room Air 08/17/18 20:00 92 08/17/18 20:00 97.9 92 18 105/67 (80) 98 08/17/18 16:00 98.3 87 18 133/59 (83) 97 08/17/18 16:00 78 08/17/18 12:00 98.1 78 17 153/68 (96) 96 08/17/18 12:00 78 Intake and Output 08/17/18 08/18/18 19:00 07:00 # Voids 1 Height (Feet): 5 Height (Inches): 2.00 Weight (Pounds): 160 Objective WDWN NAD clear breath sounds bilaterally without rhonchi or wheeze [id number] without MRG NABS nontender no HSM reddened gt site no CCE nonfocal Dustin Mary MD Aug 18, 2018 10:52
--- NOTE | 2018-08-18 11:12 | NUR ---
RD ASSESSMENT & RECOMMENDATIONS SEE CARE ACTIVITY FOR COMPLETE ASSESSMENT DAILY ESTIMATED NEEDS: Needs based on DM/ 67kg 25-30 kcals/kg total kcals 1-1.5 g protein/kg 67-100 g total protein 25-30 mL/kg total fluid mLs NUTRITION DIAGNOSIS: Swallowing difficulty R/T dysphagia as evidenced by pt w/ GT, on GT feeding + oral diet on pureed, NTL RN CARE MANAGER, currently NPO CURRENT DIET:NPO CURRENT TF:NPO ENTERAL NUTRITION RECOMMENDATIONS: Glucerna 1.2 @ 60ml/hr x 24 hrs to provide 1440ml, 1728kcal, 86g prot, 1159ml free water * As medically appropriate, initiate Glucerna 1.2 @ 30ml/hr x 6hrs. * Advance by 10ml/hr every 4-6 hours to goal rate * HOB >30 degrees, H2O flushes per MD * At goal, TF provides 100% of est. kcal & prot needs ADDITIONAL RECOMMENDATIONS: 1) Calibrated bedscale wt 2) Consider FOOD SAMPLER eval for oral diet -> Pt on pureed, NTL RN CARE MANAGER + nocturnal TF x 12 hrs 3) Initiate TF as medically appropriate, rec as above 4) Monitor lytes, replete as needed .
[2018-08-18 12:00] VITALS: BP 130/65
--- NOTE | 2018-08-18 13:34 | Surgery Progress Note ---
Surgery Progress Note Subjective Additional Comments no acute events. silver nitrite applied Objective Last 24 Hour Vital Signs Date Time Temp Pulse Resp B/P (MAP) Pulse Ox O2 Delivery O2 Flow Rate FiO2 08/18/18 10:01 67 148/61 08/18/18 10:00 148/61 08/18/18 09:00 Room Air 08/18/18 08:00 97.4 67 22 148/61 (90) 100 08/18/18 04:00 97.1 92 17 120/46 (70) 98 08/18/18 04:00 92 08/18/18 00:00 97.6 96 18 117/78 (91) 98 08/17/18 21:00 Room Air 08/17/18 20:00 92 08/17/18 20:00 97.9 92 18 105/67 (80) 98 08/17/18 16:00 98.3 87 18 133/59 (83) 97 08/17/18 16:00 78 I&O Intake and Output 08/17/18 08/18/18 19:00 07:00 # Voids 1 Dressing: dry Cardiovascular: RSR Respiratory: clear Abdomen: soft, non-tender, present bowel sounds, other, non-distended Extremities: no tenderness, no cyanosis Plan Problems: (1) G-tube site cellulitis Assessment & Plan: 77-year-old male presented with some G-tube site cellulitis as well as of hyper granulation of the tissues around the G-tube site and some leakage. Site evaluated bedside and noted to be which is some hyper granulation of tissue that has been growing around the G-tube site. Otherwise stable and tube in good positioning Recommend silver nitrate in the area granulation tissue around the G-tube. Continue with tube feeds as tolerated. Continue with dressings around G-tube. We will monitor . Thank you for allowing me to participate in patient's care. We will follow with Recs (2) Dehydration (3) Atrial fibrillation and flutter (4) CHF (congestive heart failure) (5) Pancreatitis (6) Syncope (7) Malnutrition (8) CVA (cerebral vascular accident) (9) ACS (acute coronary syndrome) (10) Episode of generalized weakness (11) LFT elevation (12) Skin infection at gastrostomy tube site (13) Skin infection at gastrostomy tube site Jesse Cash Aug 18, 2018 13:34
[2018-08-18] MEDS ORDERED: Silver Nitrate Stick TOPIC ONE (14:30)
[2018-08-18 16:00] VITALS: BP 136/61
--- NOTE | 2018-08-18 16:43 | NUR ---
CASE MANAGEMENT: INITIAL REVIEW 77 YO M JAVED FROM [facility] CC: GT SITE INFECTION PMHx: CVA. HTN. DM. PACER. GTUBE. SI:GTUBE CELLULITIS. DEHYDRATION. T 98.1 HR 78 RR 16 B/P 125/59 SATS 98% ON 2L/NC NA 135 GLU 125 CA 10.8 AST 42 ALP 318 TOTAL CK 13 IS: NO ER MEDS CXR (Impression: Mild cardiomegaly. Pacemaker. No acute process) PATIENT ADMITTED TO TELE 08/16/2018 @ 1837 DCP: PATIENT TO BE DISCHARGED TO SNF ONCE MEDICALLY CLEARED. PLAN OF CARE: WOUND CARE Addendum: 08/19/18 at 0950 by Jessi Thomas CM INTERQUAL MET
--- NOTE | 2018-08-18 16:58 | NUR ---
NURSE NOTES: reported to doctor Susie pt is having disassociated Pwaves from QRS. Per doctor Susie, this is ok since pt has a pace maker.
[2018-08-18 20:00] VITALS: BP 136/57
--- NOTE | 2018-08-18 20:20 | NUR ---
HAND-OFF: Report given to Pj GUEVARA. pt in stable condition no cardiac or respiratory distress at this time
--- NOTE | 2018-08-18 20:21 | NUR ---
NURSE NOTES: Received pt from ISMAEL Marrero. Pt is awake and resting in bed. Will continue with plan of care.
[2018-08-18] MEDS: Donepezil 10mg tab GT SCH (23:13)
[2018-08-19] VITALS: BP 145/57
[2018-08-19] MEDS: Zosyn 3.375gm q8h **Extended infusion IVPB SCH ×6 (00:23→14:00)
--- NOTE | 2018-08-19 02:30 | Progress Note ---
DATE: 08/18/2018 CARDIOLOGY PROGRESS NOTE SUBJECTIVE: Case discussed with the patient's daughter. She is frustrated with the recurrence of his G-tube site infection. OBJECTIVE: VITAL SIGNS: Blood pressure 117/78 to 148/61, heart rate 67, respiratory rate 22, and afebrile. Monitored rhythm paced with paroxysmal atrial fibrillation. LUNGS: With good breath sounds. No rales. CARDIAC: Regular rhythm and rate. Normal S1 and S2 with a 1/6 systolic apical murmur. ABDOMEN: Soft. G-tube site with no drainage. EXTREMITIES: No edema. LABORATORY DATA: Cultures of the wound revealed gram-negative pathogen. IMPRESSION: 1. G-tube site infection and cellulitis. 2. Chronic diastolic and systolic congestive heart failure. 3. Permanent pacemaker. 4. Paroxysmal atrial fibrillation. 5. Fall and bleeding risk. 6. 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 PLAN: 1. No anticoagulation. 2. Continue antimicrobials and wound care. 3. Titrate cardiovascular regimen based on clinical parameters. 4. Insulin coverage by sliding scale in addition to oral therapy. Marcellus Richards M.D. DR: YANA JOB#: [id number] CC:
[2018-08-19 04:00] VITALS: BP 153/56
[2018-08-19] MEDS: NovoLOG Insulin Flexpen SUBQ SCH ×3 (05:54→16:30)
[2018-08-19] MEDS: metFORMIN 500mg tab GT SCH ×2 (05:58→16:30)
--- NOTE | 2018-08-19 07:50 | NUR ---
NURSE NOTES: received report from Pj Mason. Pt awake, on secured entrance monitor no signs of cardiac or respiratory distress. Bed in lowest position and locked. Call light within reach. pt on Gtube and tolerating feeding well 40ml/ hr. Will continue plan of care.
--- NOTE | 2018-08-19 07:58 | NUR ---
HAND-OFF: Report given to ISMAEL Marrero. Endorsed plan of care.
[2018-08-19 08:00] VITALS: BP 147/60
[2018-08-19] MEDS: Metoprolol Succinate XL 25mg tab ORAL SCH (09:53)
[2018-08-19] MEDS: Losartan 50mg tab GT SCH (09:53)
[2018-08-19] MEDS: Heparin 5000 units/ml inj SUBQ SCH (09:56)
--- NOTE | 2018-08-19 10:56 | General Progress Note ---
Assessment/Plan Assessment/Plan: IMPRESSION gt stoma site infection dementia anemia diabetes hypertension PLAN antibiotics- change to cipro wound care- check final cultures GI and GS maintain snf meds dc today impression, plan, and exam edited and reviewed in detail care discussed with RN Subjective Allergies: Coded Allergies: No Known Allergies (Verified , 06/07/08) Subjective care noted multiple cultures noted Objective Last 24 Hour Vital Signs Date Time Temp Pulse Resp B/P (MAP) Pulse Ox O2 Delivery O2 Flow Rate FiO2 08/19/18 09:53 63 147/60 08/19/18 09:53 147/60 08/19/18 08:00 97.7 63 21 147/60 (89) 98 08/19/18 08:00 60 08/19/18 04:11 153/56 08/19/18 04:00 59 08/19/18 04:00 97.5 59 18 153/56 (88) 96 08/19/18 00:00 97.5 64 18 145/57 (86) 96 08/19/18 00:00 64 08/18/18 21:00 Room Air 08/18/18 20:00 60 08/18/18 20:00 97.3 60 18 136/57 (83) 95 08/18/18 16:00 97.2 63 20 136/61 (86) 97 08/18/18 16:00 69 08/18/18 12:00 97.3 62 22 130/65 (86) 97 08/18/18 12:00 83 Intake and Output 08/18/18 08/19/18 19:00 07:00 Intake Total 950 ml Balance 950 ml Free Water 500 ml Tube Feeding 450 ml # Voids 1 2 Laboratory Tests 08/18/18 21:40: Vancomycin Level Trough 17.8H Height (Feet): 5 Height (Inches): 2.00 Weight (Pounds): 160 Objective WDWN NAD clear breath sounds bilaterally without rhonchi or wheeze Q6H3RAD without MRG NABS nontender no HSM reddened gt site no CCE nonfocal Dustin Mary MD Aug 19, 2018 10:56
[2018-08-19] MEDS ORDERED: Vancomycin 500 MG in NS 110 ML IV SCH (11:00)
--- NOTE | 2018-08-19 11:14 | NUR ---
DISCHARGE PLANNING DISCHARGE ORDER NOTED FAXED CLINICALS TO [facility] T: [phone] F: [phone] AWAIT ACCEPTANCE AND ROOM NUMBER
[2018-08-19 12:00] VITALS: BP 125/53
[2018-08-19] MEDS ORDERED: Vancomycin 1 GM in NS 275 ML IVPB SCH (12:00)
--- NOTE | 2018-08-19 12:52 | NUR ---
DISCHARGE PLANNED PATIENT IS RETURNING TO [facility] ROOM 28A SKILLED T: [phone] FOR NURSE TO NURSE REPORT [facility] HAS BEEN ARRANGED FOR 1430 BUILD[facility] PRINCIPAL
[2018-08-19] MEDS ORDERED: CIPRO500 MG/51 GT (14:28)
--- NOTE | 2018-08-19 14:59 | Surgery Progress Note ---
Surgery Progress Note Subjective Additional Comments no acute events. cultures noted. exam stable. improved. Objective Last 24 Hour Vital Signs Date Time Temp Pulse Resp B/P (MAP) Pulse Ox O2 Delivery O2 Flow Rate FiO2 08/19/18 12:00 97.5 62 20 125/53 (77) 96 08/19/18 09:53 63 147/60 08/19/18 09:53 147/60 08/19/18 08:00 97.7 63 21 147/60 (89) 98 08/19/18 08:00 60 08/19/18 04:11 153/56 08/19/18 04:00 59 08/19/18 04:00 97.5 59 18 153/56 (88) 96 08/19/18 00:00 97.5 64 18 145/57 (86) 96 08/19/18 00:00 64 08/18/18 21:00 Room Air 08/18/18 20:00 60 08/18/18 20:00 97.3 60 18 136/57 (83) 95 08/18/18 16:00 97.2 63 20 136/61 (86) 97 08/18/18 16:00 69 I&O Intake and Output 08/18/18 08/19/18 19:00 07:00 Intake Total 950 ml Balance 950 ml Free Water 500 ml Tube Feeding 450 ml # Voids 1 2 Dressing: dry Wound: clean Cardiovascular: RSR Respiratory: clear Abdomen: soft, non-tender, present bowel sounds, non-distended Extremities: no tenderness, no cyanosis Laboratory Tests Test 08/18/18 21:40 Vancomycin Level Trough 17.8 ug/mL (5.0-12.0) H Plan Problems: (1) G-tube site cellulitis Assessment & Plan: 77-year-old male presented with some G-tube site cellulitis as well as of hyper granulation of the tissues around the G-tube site and some leakage. Site evaluated bedside and noted to be which is some hyper granulation of tissue that has been growing around the G-tube site. Otherwise stable and tube in good positioning Recommend silver nitrate in the area granulation tissue around the G-tube. Continue with tube feeds as tolerated. Continue with dressings around G-tube. We will monitor . abx oral okay to d/c from surgical standpoint Thank you for allowing me to participate in patient's care. We will follow with Recs (2) Dehydration (3) Atrial fibrillation and flutter (4) CHF (congestive heart failure) (5) Pancreatitis (6) Syncope (7) Malnutrition (8) CVA (cerebral vascular accident) (9) ACS (acute coronary syndrome) (10) Episode of generalized weakness (11) LFT elevation (12) Skin infection at gastrostomy tube site (13) Skin infection at gastrostomy tube site Jesse Cash Aug 19, 2018 14:59
--- NOTE | 2018-08-19 16:15 | Progress Note ---
CARDIOLOGY PROGRESS NOTE DATE: 08/19/2018 SUBJECTIVE: The patient is on oral antibiotics, ongoing wound care to the G-tube site. OBJECTIVE: VITAL SIGNS: Blood pressure 147/60, pulse 63, and respirations 21. Afebrile. LUNGS: Bilateral breath sounds. No wheezing or rales. HEART: Regular rhythm and rate. Normal S1, S2. Monitored rhythm, sinus with paroxysms of atrial fibrillation and demand ventricular pacing. ABDOMEN: Soft. G-tube site with dressing. EXTREMITIES: No edema. IMPRESSION: 1. G-tube site infection. 2. Chronic diastolic and systolic congestive heart failure. 3. Hypertensive heart disease. 4. Permanent pacemaker. 5. Paroxysmal atrial fibrillation. PLAN: 1. Stable from cardiovascular standpoint to return to senior living facility. 2. Incomplete treatment of infection. 3. Outpatient pacemaker interrogation is scheduled. 4. Current cardiovascular regimen is appropriate otherwise. Marcellus Richards M.D. DR: JES JOB#: [id number] CC:
--- NOTE | 2018-08-19 18:45 | Consultation ---
DATE OF CONSULTATION: 08/19/2018 INFECTIOUS DISEASES CONSULTATION CONSULTING PHYSICIAN: Clari Whitten M.D. REFERRING PHYSICIAN: Dustin Mary M.D. REASON FOR CONSULTATION: G-tube site cellulitis. HISTORY OF PRESENTING ILLNESS: This is a 77-year-old gentleman with history of diabetes, hypertension, dementia, status post G-tube placement, who recently had a G-tube replacement, but now he has increased drainage and redness around the area and Infectious Diseases consultation has been obtained for G-tube site cellulitis. PAST MEDICAL HISTORY: 1. History of diabetes. 2. Hypertension. 3. Dementia. 4. Status post G-tube placement. SOCIAL HISTORY: He does not smoke, drink, or use drugs. FAMILY HISTORY: Unknown. REVIEW OF SYSTEMS: Unable to obtain currently. MEDICATIONS: As an inpatient, he is on IV vancomycin, Toprol, Protonix, atorvastatin, benazepril, Zosyn, subcutaneous heparin, losartan, Januvia, metformin, insulin, hydralazine, Tylenol, Mylanta. ALLERGIES: No known drug allergies. PHYSICAL EXAMINATION: VITAL SIGNS: Temperature of 97.5, T-max of 97.9, pulse of 62, respiratory rate 20, blood pressure 125/53, O2 saturation of 96%. HEENT: Pupils equally reactive to light and accommodation. Mouth appears clean without thrush. NECK: Supple. No adenopathy. No JVD. CARDIOVASCULAR: Regular rate and rhythm. No murmurs. LUNGS: Clear to auscultation bilaterally. No crackles. No wheezes. ABDOMEN: Soft and nontender. G-tube site with drainage and erythema noted. EXTREMITIES: No cyanosis, no clubbing, no edema. LABORATORY AND DIAGNOSTIC DATA: White count of 9, hemoglobin 12.9, hematocrit 38.3, MCV 91, and platelet count of 212,000 with neutrophils of 70%. Sodium 134, potassium 4.4, chloride 99, bicarbonate 30, BUN 13, creatinine 0.7, glucose 103, calcium 10.6. Total bilirubin 0.7, AST 42, ALT 26, alkaline phosphatase 318. CK of 13, CK-MB of 0.5. Total protein 6.6, albumin 2.3. UA showing 0 to 2 white cells. Rectal swab was negative for VRE. Nasal swab was negative for MRSA. Abdominal wound culture is growing Pseudomonas, gram-negative rods, beta-hemolytic streptococcus. A 08/16/2018 blood cultures are negative. Pseudomonas is susceptible to cefepime, ciprofloxacin, imipenem, piperacillin and tazobactam. Chest x-ray showing mild cardiomegaly, no acute process. ASSESSMENT: This is a 77-year-old gentleman with history of diabetes, hypertension, and dementia, who comes in with drainage and leakage from the G-tube site consistent with: 1. G-tube site cellulitis with Pseudomonas, gram-negative rods, and streptococcus. 2. Diabetes. 3. Hypertension. PLAN: 1. Continue IV vancomycin and Zosyn. 2. We would suggest a GI evaluation. 3. We will follow up cultures. I would like to thank, Dr. Mary, for this consultation. Clari Whitten M.D. DR: NISREEN JOB#: [id number] CC: Dustin Mary M.D.; Fax#: [phone]
--- NOTE | 2018-08-20 12:48 | Discharge Summary ---
Discharge Summary Discharge Summary _ DATE OF ADMISSION: 08/16/2018 DATE OF DISCHARGE: 08/19/2018 DISCHARGED BY: Dr. Mary REASON FOR ADMISSION: 77 years old male with past medical history of diabetes mellitus, hypertension, congestive heart failure, G-tube feeding, aspiration, dementia, was brought from the intermediate facility after noted drainage from G-tube stoma site. Patient recently had a G-tube replacement Nursing staff at the facility noted increased drainage from the stoma site. Laboratory work-up revealed no leukocytosis, hemoglobin 12.0, hematocrit 35.9. Stable electrolytes. Glucose 125. Lactic acid 1.5. Troponin -0.042. Pro BNP 1117. Albumin 2.3. Urinalysis revealed no evidence of urinary tract infection. Chest x-ray demonstrated mild cardiomegaly, pacemaker, no acute process. Patient subsequently was admitted for further management. CONSULTANTS: head grinder Dr. Richards ID specialist Dr. Whitten surgery Dr. Cash [facility] COURSE: Patient admitted to telemetry floor. Patient started on empiric antibiotics. Wound care provided as per surgeon recommendation. Blood cultures were negative. Wound culture revealed Pseudomonas aeruginosa, Klebsiella pneumonia and Strep species beta-hemolytic. Antibiotic provided as per ID specialist recommendation. Fisher Trot Line followed. Outpatient pacemaker interrogation was scheduled. Current cardiovascular regimen was appropriate. Blood pressure was managed with the beta-jaison, ARB and hydralazine. DVT prophylaxis provided. Statin continued. Fisher Trot Line recommended no anticoagulation given recurrent falls and bleeding risk. Heart rate remained stable. Blood sugar was managed with metformin and Januvia, sliding scale of insulin utilized as needed. Hemoglobin and hematocrit were closely monitored with goal to keep hemoglobin above 7. Hemoglobin and hematocrit remained at baseline ; prior to discharge hemoglobin 12.9, hematocrit 38.3. Patient clinically stabilized and was ready to transfer back to intermediate facility for continuation of care. 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 DISCHARGE INSTRUCTIONS: Patient was discharged to the intermediate facility. Follow up with medical doctor at the facility. I have been assigned to dictate discharge summary for this account. I was not involved in the patient's management. Rachel Bradshaw [employer] Aug 20, 2018 12:48
== END 2018-08-19 15:45 | DRG 393 ==
LOC: EDBD 15:13 → EDUNIT# 15:13 → EMR 16:25 → EDBEDREQ 17:15 → 2E 17:24 → EDBEDREQ 21:01 → 2E 08-18 11:00
DX: K94.22 Gastrostomy infection (principal); K85.90 Acute pancreatitis without necrosis or infection, unspecified; L03.311 Cellulitis of abdominal wall; E46 Unspecified protein-calorie malnutrition; I50.42 Chronic combined systolic (congestive) and diastolic (congestive) heart failure; Y83.3 Surgical operation with formation of external stoma as the cause of abnormal reaction of the patient, or of later complication, without mention of misadventure at the time of the procedure; B96.5 Pseudomonas (aeruginosa) (mallei) (pseudomallei) as the cause of diseases classified elsewhere; B96.1 Klebsiella pneumoniae [K. pneumoniae] as the cause of diseases classified elsewhere; B95.4 Other streptococcus as the cause of diseases classified elsewhere; Z68.29 Body mass index [BMI] 29.0-29.9, adult; I11.0 Hypertensive heart disease with heart failure; Z95.0 Presence of cardiac pacemaker; I48.0 Paroxysmal atrial fibrillation; E11.21 Type 2 diabetes mellitus with diabetic nephropathy; E11.40 Type 2 diabetes mellitus with diabetic neuropathy, unspecified; D64.9 Anemia, unspecified; E86.0 Dehydration; Z86.73 Personal history of transient ischemic attack (TIA), and cerebral infarction without residual deficits; F01.50 Vascular dementia, unspecified severity, without behavioral disturbance, psychotic disturbance, mood disturbance, and anxiety; R13.10 Dysphagia, unspecified
CPT/HCPCS: 36415; 71045; 80048; 80053; 80202; 81003; 82550; 82553; 82962; 83605; 84484; 85025; 87040; 87070; 87081; 87181; 87205; 93005; 96365; 99285; J1815

== ENCOUNTER 2018-08-26 12:31 | Emergency (ER) | payer MEDICARE, OTHER ==
[~2018-08-26] VITALS: Ht 175.3 cm; Wt 68.0 kg
[~2018-08-26 12:31] MED LIST changes: +CIPRO500 MG/51 GT
--- NOTE | 2018-08-26 13:00 | NUR ---
ED Nurse Note:pt. was BIBA from SNF with possible around GT skin irritation, pt. was examed by ER
--- NOTE | 2018-08-26 13:11 | Emergency Room Report ---
History of Present Illness General Chief Complaint: Skin Rash/Abscess Source: EMS Present Illness HPI Patient is sent in from nursing facility with reports of concern for feeding tube site infection Patient himself denies any pain denies any fevers there is some limitation secondary to the Ability to provide appropriate history there is no reports of vomiting or diarrhea patient had recent hospitalization here Allergies: Coded Allergies: No Known Allergies (Verified , 06/07/08) Patient History Limited by: medical condition Past Medical History: see triage record Pertinent Family History: unable to obtain Reviewed Nursing Documentation: PMH: Agreed; PSxH: Agreed Nursing Documentation-PMH Hx Cardiac Problems: Yes - Atrial Fibrillation, Pacemaker Hx Hypertension: Yes Hx Pacemaker: Yes Hx Diabetes: Yes Hx Cancer: No Hx Gastrointestinal Problems: Yes - G-tube Hx Neurological Problems: Yes Hx Alzheimer's Disease: Yes Hx Dysphasia: Yes Review of Systems All Other Systems: limited - Other than the ones mentioned in the history of present illness all others are reviewed however they do stay limited due to the patient's mental status Physical Exam Vital Signs Date Time Temp Pulse Resp B/P (MAP) Pulse Ox O2 Delivery O2 Flow Rate FiO2 08/26/18 12:32 97.5 78 16 131/65 (87) 96 Room Air Sp02 EP Interpretation: reviewed, normal General Appearance: no apparent distress Head: normocephalic, atraumatic Eyes: bilateral eye PERRL ENT: normal pharynx, no angioedema Neck: supple Respiratory: lungs clear, no respiratory distress Cardiovascular #1: regular rate, rhythm Gastrointestinal: other - Feeding tube in place there is very mild contact erythema approximately 6:00 region no obvious fluctuance or spread Rectal: normal rectal tone Musculoskeletal: other - Moving upper extremities equally Neurologic: alert, responsive Skin: normal color, other - Very mild erythema just at the lower aspect of the feeding tube does not appear to be consistent with cellulitis or abscess Lymphatic: no adenopathy Medical Decision Making Diagnostic Impression: Primary Impression: Rash and other nonspecific skin eruption ER Course On evaluation of the feeding tube there is some mild contact irritation in the lower aspect of the feeding tube no obvious cellulitis no fluctuance patient remains hemodynamically stable Abdomen remains soft the feeding tube was left open for several minutes and appeared to decompress some of the gas as well Patient does not appear in any acute distress abdomen remains soft Plan stable for close follow-up Last Vital Signs Date Time Temp Pulse Resp B/P (MAP) Pulse Ox O2 Delivery O2 Flow Rate FiO2 08/26/18 12:32 97.5 78 16 131/65 (87) 96 Room Air Status: unchanged Disposition: XFER SNF Condition: Stable Additional Instructions: Patient is provided with the discharge instructions notified to follow up with primary doctor in the next 2-3 days otherwise return to the er with any worsening symptoms. Please note that this report is being documented using DRAGON technology. This can lead to erroneous entry secondary to incorrect interpretation by the dictating instrument. Ana Laura Schafer DO Aug 26, 2018 13:11
[2018-08-26 13:34] VITALS: BP 131/65
[2018-08-26 13:39] VITALS: BP 131/65
--- NOTE | 2018-08-26 13:42 | NUR ---
ED Nurse Note:called report to SNF -given to Fdiel pt. is stable for transfer, was picked up by ambulance
== END 2018-08-26 14:00 ==
LOC: EDUNIT# 12:31 → EDBD 12:31 → EMR 13:03
DX: R21 Rash and other nonspecific skin eruption (principal); Z95.0 Presence of cardiac pacemaker; I10 Essential (primary) hypertension; E11.9 Type 2 diabetes mellitus without complications; Z93.1 Gastrostomy status; G30.9 Alzheimer's disease, unspecified; F02.80 Dementia in other diseases classified elsewhere, unspecified severity, without behavioral disturbance, psychotic disturbance, mood disturbance, and anxiety
CPT/HCPCS: 99282

== ENCOUNTER 2018-09-03 14:14 | Inpatient (IN) | payer MEDICARE, OTHER ==
[~2018-09-03] VITALS: Ht 172.7 cm; Wt 85.7 kg
[2018-09-03] MEDS ORDERED: JANUVIA25 MG GT (14:20)
--- NOTE | 2018-09-03 14:26 | NUR ---
ED Nurse Note: PT FROM [facility] BROUGHT IN BY EMS DUE TO DISTENDED ABDOMEN X 1 WEEK. PER EMS, ABDOMEN INCREASING IN SIZE. HX OF HEPATOMEGALY. PT IS AWAKE ,BUT NOT ABLE TO FOLLOW COMMANDS. ABDOMEN DISTENDED AND SKIN STRETCHED.
[2018-09-03 14:31] VITALS: BP 145/47
[2018-09-03] MEDS ORDERED: Isovue-300 100ml vial INJ PRN (14:45)
--- NOTE | 2018-09-03 14:45 | Emergency Room Report ---
History of Present Illness General Chief Complaint: General Complaint Source: Medical Record, EMS Present Illness HPI Patient is sent in for abdominal distention. He is unable to give a history. There is no documentation that are present with him regarding this problem. He does have a gastrostomy tube. He also has a history of chronic pancreatitis. Patient was admitted in August with these discharge diagnoses: G-tube site cellulitis (with Pseudomonas Klebsiella and Streptococci) Chronic diastolic and systolic congestive heart failure Hypertensive heart disease Permanent pacemaker Paroxysmal atrial fibrillation Diabetes mellitus type 2 with complications, including nephropathy and neuropathy Cerebrovascular disease with dementia Falls with bleeding risk Anemia Allergies: Coded Allergies: No Known Allergies (Verified , 06/07/08) Patient History Limited by: medical condition Past Medical History: see triage record, old chart reviewed Past Surgical History: pacemaker, other - Gastrostomy tube Social History Narrative SNF, full treatment Reviewed Nursing Documentation: PMH: Agreed; PSxH: Agreed Nursing Documentation-PMH Past Medical History: No History, Except For Hx Cardiac Problems: Yes - Atrial Fibrillation, Pacemaker Hx Hypertension: Yes Hx Pacemaker: Yes Hx Diabetes: Yes Hx Cancer: No Hx Gastrointestinal Problems: Yes - G-tube Hx Neurological Problems: Yes Hx Alzheimer's Disease: Yes Hx Dysphasia: Yes Review of Systems All Other Systems: limited Physical Exam Vital Signs Date Time Temp Pulse Resp B/P (MAP) Pulse Ox O2 Delivery O2 Flow Rate FiO2 09/03/18 14:16 75 18 136/72 (93) 95 Room Air 09/03/18 14:31 97.8 Sp02 EP Interpretation: reviewed, normal General Appearance: no apparent distress, lethargic, Chronically Ill Head: normocephalic Eyes: right eye other - Lid laxity; bilateral eye normal inspection, bilateral eye PERRL ENT: moist mucus membranes Neck: supple Respiratory: lungs clear, normal breath sounds Cardiovascular #1: regular rate, rhythm Cardiovascular #2: 2+ radial (R) Gastrointestinal: non tender, no guarding, no rebound, distended, other - Gastrostomy tube Musculoskeletal: back normal, gait/station normal, normal range of motion Neurologic: responsive - To verbal and pain, DTRs symmetric - Decreased, no Babinski, motor weakness Psychiatric: depressed affect Skin: other - Sallow without gastrostomy tube erythema Medical Decision Making Diagnostic Impression: Primary Impression: Abdominal distension Additional Impressions: Umbilical hernia Qualified Codes: K42.9 - Umbilical hernia without obstruction or gangrene Constipation Qualified Codes: K59.00 - Constipation, unspecified ER Course The patient presents with abdominal distention. This is difficult because he is unable to give a history and there is not any supporting documentation. Differential includes small bowel obstruction, large bowel obstruction, abdominal mass, diverticulitis, UTI amongst others. The patient will be evaluated with EKG, chest x-ray, abdominal film and CT of the abdomen with contrast. The we will also be obtaining labs. The patient will start to have IV hydration. EKG without injury. CXR atelectasis L base. ABD no SBO. No leukocytosis. CT abdomen. Fat containing hernia with some stranding. Perinephric stranding. Large stool load possible fecal impaction. Contact Dr. Mary for admission. Contacted Dr. Perez for consultation. (At that time prior surgery consult was not known.) Patient admitted to medical floor. Laboratory Tests Test 09/03/18 14:55 White Blood Count 8.2 K/UL (4.8-10.8) Red Blood Count 3.79 M/UL (4.70-6.10) L Hemoglobin 11.6 G/DL (14.2-18.0) L Hematocrit 35.6 % (42.0-52.0) L Mean Corpuscular Volume 94 FL (80-99) Mean Corpuscular Hemoglobin 30.6 PG (27.0-31.0) Mean Corpuscular Hemoglobin Concent 32.6 G/DL (32.0-36.0) Red Cell Distribution Width 12.7 % (11.6-14.8) Platelet Count 221 K/UL (150-450) Mean Platelet Volume 6.0 FL (6.5-10.1) L Neutrophils (%) (Auto) 63.9 % (45.0-75.0) Lymphocytes (%) (Auto) 23.2 % (20.0-45.0) Monocytes (%) (Auto) 10.6 % (1.0-10.0) H Eosinophils (%) (Auto) 1.7 % (0.0-3.0) Basophils (%) (Auto) 0.7 % (0.0-2.0) Prothrombin Time 9.9 SEC (9.30-11.50) Prothrombin Time INR 0.9 (0.9-1.1) PTT 30 SEC (23-33) Urine Color Yellow Urine Appearance Clear Urine pH 7 (4.5-8.0) Urine Specific [place] 1.005 (1.005-1.035) Urine Protein 1+ (NEGATIVE) H Urine Glucose (UA) Negative (NEGATIVE) Urine Ketones Negative (NEGATIVE) Urine Blood Negative (NEGATIVE) Urine Nitrite Negative (NEGATIVE) Urine Bilirubin Negative (NEGATIVE) Urine Urobilinogen 4 MG/DL (0.0-1.0) H Urine Leukocyte Esterase Negative (NEGATIVE) Urine RBC 0-2 /HPF (0 - 0) H Urine WBC 0-2 /HPF (0 - 0) Urine Squamous Epithelial Cells None /LPF (NONE/OCC) Urine Bacteria Occasional /HPF (NONE) Sodium Level 138 MMOL/L (136-145) Potassium Level 4.6 MMOL/L (3.5-5.1) Chloride Level 103 MMOL/L (98-107) Carbon Dioxide Level 28 MMOL/L (21-32) Anion Gap 7 mmol/L (5-15) Blood Urea Nitrogen 24 mg/dL (7-18) H Creatinine 0.8 MG/DL (0.55-1.30) Estimate Glomerular Filtration Rate mL/min (>60) Glucose Level 151 MG/DL (74-106) H Calcium Level 10.4 MG/DL (8.5-10.1) H Total Bilirubin 0.5 MG/DL (0.2-1.0) Aspartate Amino Transferase (AST) 47 U/L (15-37) H Alanine Aminotransferase (ALT) 29 U/L (12-78) Alkaline Phosphatase 467 U/L (46-116) H Total Creatine Kinase 16 U/L (26-308) L Troponin I 0.021 ng/mL (0.000-0.056) Total Protein 6.4 G/DL (6.4-8.2) Albumin 2.0 G/DL (3.4-5.0) L Globulin 4.4 g/dL Albumin/Globulin Ratio 0.5 (1.0-2.7) L Lipase 209 U/L (73-393) EKG Diagnostic Results Rate: normal Rhythm: NSR ST Segments: no acute changes - Fascicular block Rhythm Strip Diag. Results EP Interpretation: yes Rhythm: NSR, no PVC's, no ectopy Chest X-Ray Diagnostic Results Chest X-Ray Diagnostic Results : Chest X-Ray Ordered: Yes # of Views/Limited/Complete: 1 View Indication: Other EP Interpretation: Yes Interpretation: no effusion, no pneumothorax, other - Increased heart, pacemaker Impression: Other Electronically Signed by: Electronically signed by Marcellus Bernard MD Other X-Ray Diagnostic Results Other X-Ray Diagnostic Results : X-Ray ordered: Abdomen # of Views/Limited Vs Complete: 2 View Indication: Other EP Interpretation: Yes Interpretation: nonspecific bowel gas, no sbo, other - Gastrostomy tube and increased stool Impression: Other Electronically Signed by: Electronically signed by Marcellus Bernard MD CT/MRI/US Diagnostic Results CT/MRI/US Diagnostic Results : Imaging Test Ordered: abd/pelvis Impression Small bilateral pleural effusions with associated atelectasis. Mild cardiomegaly small pericardial effusion pacer wires. Hypoattenuating mass in the right liver concerning for hepatic neoplastic process. Stranding in the mesentery inferior to the liver could represent edema versus peritoneal carcinomatosis. Atrophy of the pancreas. G-tube in place. Normal appendix. Moderate stool in the Coden colon which could represent an element of fecal impaction. No bowel obstruction. Fluid and gas-filled small bowel loops are nonspecific. Atherotic's changes of vasculature. Nonspecific bilateral perinephric fat stranding. Small hypodensities in the right kidney. No hydronephrosis. Small to moderate amount of ascites. Body wall edema. Stable pathologic fracture deformity of T12 vertebral body with lucent lesion in T11 vertebral body is concerning for osseous metastasis. Small to moderate fat containing umbilical hernia with mild associated fat stranding. Last Vital Signs Date Time Temp Pulse Resp B/P (MAP) Pulse Ox O2 Delivery O2 Flow Rate FiO2 09/04/18 00:00 98.3 77 20 114/71 (85) 97 09/03/18 21:00 Room Air Status: improved Disposition: ADMITTED INPATIENT Condition: Serious Referrals: Dustin Mary MD (PCP) Marcellus Bernard MD Sep 03, 2018 14:45
--- NOTE | 2018-09-03 14:51 | NUR ---
Note [place] in EDM - 09/03/18 at 1452 by RANI ED Nurse Note: NOTED REDNESS ON SACRUM. NO ONE WOUNDS AT THIS TIME.
--- NOTE | 2018-09-03 14:52 | NUR ---
ED Nurse Note: NOTED REDNESS ON SACRUM. NO OPEN WOUNDS AT THIS TIME.
[2018-09-03 15:24] LABS: APPEARANCE,URINE CLEAR; BILIRUBIN, URINE NEGATIVE (NEGATIVE); GLUCOSE, URINE (UA) NEGATIVE (NEGATIVE); KETONES,URINE NEGATIVE (NEGATIVE); LEUKOCYTE ESTERASE ,URINE NEGATIVE (NEGATIVE); NITRITE,URINE NEGATIVE (NEGATIVE); PH,URINE 7 (4.5-8.0); PROTEIN,URINE 1+ (NEGATIVE); UROBILINOGEN,URINE 4 MG/DL (0.0-1.0)
--- NOTE | 2018-09-03 15:24 | NUR ---
ED Nurse Note: ORAL CONTRAST GIVEN VIA GTUBE.
[2018-09-03 15:25] LABS: COLOR,URINE YELLOW
[2018-09-03 15:26] LABS: BASOPHILS % (AUTO) 0.7 % (0.0-2.0); EOSINOPHILS % (AUTO) 1.7 % (0.0-3.0); HEMATOCRIT 35.6 % (42.0-52.0); HEMOGLOBIN 11.6 G/DL (14.2-18.0); LYMPHOCYTES % (AUTO) 23.2 % (20.0-45.0); MEAN CORPUSCULAR VOLUME 94 FL (80-99); MONOCYTES % (AUTO) 10.6 % (1.0-10.0); NEUTROPHILS % (AUTO) 63.9 % (45.0-75.0); PLATELET COUNT 221 K/UL (150-450); RED BLOOD COUNT 3.79 M/UL (4.70-6.10); RED CELL DISTRIBUTION WIDTH 12.7 % (11.6-14.8); WHITE BLOOD COUNT 8.2 K/UL (4.8-10.8)
[2018-09-03 15:36] LABS: ANION GAP 7 mmol/L (5-15); BLOOD UREA NITROGEN 24 mg/dL (7-18); CALCIUM 10.4 MG/DL (8.5-10.1); CARBON DIOXIDE 28 MMOL/L (21-32); CHLORIDE 103 MMOL/L (98-107); CREATININE 0.8 MG/DL (0.55-1.30); POTASSIUM 4.6 MMOL/L (3.5-5.1); SODIUM 138 MMOL/L (136-145)
[2018-09-03 15:40] LABS: ALANINE AMINOTRANSFERASE 29 U/L (12-78); ALBUMIN/GLOBULIN RATIO 0.5 (1.0-2.7); ALKALINE PHOSPHATASE 467 U/L (46-116); ASPARTATE AMINO TRANSFERASE 47 U/L (15-37); BILIRUBIN,TOTAL 0.5 MG/DL (0.2-1.0); CREATINE KINASE 16 U/L (26-308); INR 0.9 (0.9-1.1)
--- NOTE | 2018-09-03 15:46 | Diagnostic Imaging Report ---
Indication: Abdominal pain Comparison: None Single view of the abdomen obtained Findings: Bowel gas pattern is nonspecific. There is a gastrostomy tube projected over the upper abdomen. Bones are osteopenic. Pacemaker noted. IMPRESSION: No acute findings
--- NOTE | 2018-09-03 15:48 | Diagnostic Imaging Report ---
Indication: Dyspnea Comparison: 08/16/2018 A single view chest radiograph was obtained. Findings: Heart is enlarged slightly. Lung volumes are low. Pacemaker is present on the left. Bones are osteopenic. IMPRESSION: No acute disease
[2018-09-03 16:30] VITALS: BP 153/50
--- NOTE | 2018-09-03 16:45 | NUR ---
ED Nurse Note: PT TAKEN TO CT VIA CYNTHIA. VSS.
--- NOTE | 2018-09-03 17:24 | NUR ---
ED Nurse Note: PT CAME BACK FROM CT. VSS.
[2018-09-03 18:40] VITALS: BP 165/50
--- NOTE | 2018-09-03 19:00 | NUR ---
HAND-OFF: Report given to ROMAN GUEVARA.
[2018-09-03 19:40] VITALS: BP 165/50
--- NOTE | 2018-09-03 19:52 | NUR ---
ED Nurse Note: Patient was admited to [facility] due to ascites, ubilical hernia. Patient was traznsfered to the [facility] via gurney, with all belongings. Patient AAO x0, VSS at this time, pt has redness on his sacral area, pictures were taken and uploaded.
[2018-09-03 20:04] VITALS: BP 149/64
[2018-09-03] MEDS ORDERED: Acetaminophen 650mg/20.3ml GT PRN (21:30)
[2018-09-03] MEDS ORDERED: HydrALAZINE 25mg tab GT PRN (21:30)
--- NOTE | 2018-09-03 22:45 | Consultation ---
DATE OF CONSULTATION: 09/03/2018 CONSULTING PHYSICIAN: Cande Perez M.D. REQUESTING PHYSICIAN: Dr. Bernard in the emergency room. REASON FOR CONSULTATION: Abdominal distention. HISTORY OF PRESENT ILLNESS: This is a 77-year-old male, resident of a residential, who was brought to the emergency room for abdominal distention. The patient has Alzheimer's and is nonverbal, does not communicate. There is no history. The family is not available and the history was obtained from the and the nurses. There is no history of vomiting. No fever. Apparently, the patient has not complained of abdominal pain and it is not clear how long he has had abdominal distention. PAST MEDICAL HISTORY: Apparently, there are no allergies. He has history of hypertension, diabetes, atrial fibrillation, sick sinus syndrome, dysphagia, Alzheimer's. PAST SURGICAL HISTORY: Pacemaker and G-tube. MEDICATIONS: Please see the medicine reconciliation form. SOCIAL HISTORY: The patient is a 77-year-old male, resident of a residential. REVIEW OF SYSTEMS: Unobtainable as the patient is nonverbal. PHYSICAL EXAMINATION: GENERAL: The patient appeared to be a well-developed, well-nourished, 77-year-old male, lying in the bed, awake. HEENT: His eyes are open, but does not respond. Head is normocephalic and atraumatic. Eyes, he has strabismus and sluggish reaction of the pupil. Mouth is clear. NECK: There is no palpable thyromegaly or adenopathy. CHEST: He has rhonchi on both sides. He has a pacemaker in the left upper chest. HEART: There is no gallop or murmur. ABDOMEN: Very large, distended. He has a G-tube in place. The abdomen is soft without tenderness. There is no guarding. There is no rebound tenderness. He has an irreducible umbilical hernia of the size of a michelle nut. Bowel sounds are present. GENITAL: Normal for his age. EXTREMITIES: Within normal limits. LABORATORY AND DIAGNOSTIC DATA: CBC is normal except for the anemia. Chemistry has shown blood glucose of 150. The rest of it is within normal limits except for very high alkaline phosphatase. KUB is nonspecific and the CAT scan of the abdomen shows fecal impaction. ASSESSMENT: Fecal impaction. RECOMMENDATION: At this time, the patient does not require any surgery. He requires removal of the fecal impaction. Cande Perez M.D. DR: Mari aDel Carmen JOB#: [id number] CC:
[2018-09-04] VITALS: BP 114/71
[2018-09-04 03:56] VITALS: BP 114/65
[2018-09-04] MEDS: NovoLOG Insulin Flexpen SUBQ SCH ×4 (06:03→20:50)
--- NOTE | 2018-09-04 07:07 | NUR ---
HAND-OFF: Report given to ISMAEL Freeman.
--- NOTE | 2018-09-04 07:48 | NUR ---
NURSE NOTES: Pt is nonverbal, did not respond when publications writer entered room. Pt is NPO 2 to bowel obstruction. IV requires assessment and monitoring 2 to location of ac area. Will require to be repositioned for preventative , and comfort measures.
[2018-09-04 08:00] VITALS: BP 148/62
[2018-09-04 08:42] LABS: BASOPHILS % (AUTO) 0.7 % (0.0-2.0); EOSINOPHILS % (AUTO) 0.7 % (0.0-3.0); HEMATOCRIT 37.7 % (42.0-52.0); LYMPHOCYTES % (AUTO) 19.7 % (20.0-45.0); MEAN CORPUSCULAR VOLUME 94 FL (80-99); MONOCYTES % (AUTO) 8.9 % (1.0-10.0); NEUTROPHILS % (AUTO) 69.9 % (45.0-75.0); PLATELET COUNT 229 K/UL (150-450); RED BLOOD COUNT 3.99 M/UL (4.70-6.10); RED CELL DISTRIBUTION WIDTH 13.6 % (11.6-14.8); WHITE BLOOD COUNT 7.4 K/UL (4.8-10.8)
[2018-09-04] MEDS: Losartan 50mg tab GT SCH (09:00)
[2018-09-04] MEDS: Heparin 5000 units/ml inj SUBQ SCH ×2 (09:00→20:50)
[2018-09-04] MEDS: Vitamin D 1000 IU Tab GT SCH ×2 (09:00→18:00)
[2018-09-04] MEDS: Docusate 100mg/10ml Liq GT SCH ×2 (09:00→18:00)
[2018-09-04] MEDS: Levemir Flexpen SUBQ SCH (09:00)
[2018-09-04 09:03] LABS: ANION GAP 8 mmol/L (5-15); BLOOD UREA NITROGEN 19 mg/dL (7-18); CALCIUM 10.3 MG/DL (8.5-10.1); CARBON DIOXIDE 26 MMOL/L (21-32); CHLORIDE 101 MMOL/L (98-107); CREATININE 0.5 MG/DL (0.55-1.30); POTASSIUM 4.4 MMOL/L (3.5-5.1); SODIUM 135 MMOL/L (136-145)
--- NOTE | 2018-09-04 10:31 | History & Physical ---
History and Physical History & Physicial History and Physical HPI Patient non verbal from senior living, admitted with abdominal distention, noted to have fecal impaction. He is unable to give a history. Has a gastrostomy tube. PMH: Dysphagia s/p previous G tube, previous G-tube site cellulitis (Pseudomonas Klebsiella and Streptococci) Alzheimer Dementia Cerebrovascular disease Chronic diastolic and systolic congestive heart failure Hypertensive heart disease Permanent pacemaker Paroxysmal atrial fibrillation Diabetes mellitus type 2 with complications, including nephropathy and neuropathy Anemia Falls with bleeding risk History of chronic pancreatitis Allergies: No Known Allergies All Other Systems: limited Physical Exam Vital Signs Noted Date Time Temp Pulse Resp B/P (MAP) Pulse Ox O2 Delivery O2 Flow Rate FiO2 09/03/18 14:16 75 18 136/72 (93) 95 Room Air 09/03/18 14:31 97.8 General Appearance: no apparent distress, non verbal, Chronically Illappearing Head: normocephalic Eyes: PERRL ENT: moist mucus membranes Neck: supple Respiratory: lungs clear, normal breath sounds Cardiovascular: regular rate, rhythm, normal HS, left sided PPM Gastrointestinal: non tender, no guarding, no rebound, distended, other - Gastrostomy tube Musculoskeletal: back normal, gait/station normal, normal range of motion Neurologic: responsive - To verbal and pain, motor weakness Psychiatric: depressed affect Skin: No edema, gastrostomy tube erythema Impression: Fecal impaction Abdominal distension Umbilical hernia Constipation Dysphagia s/p previous G tube, previous G-tube site cellulitis (Pseudomonas Klebsiella and Streptococci) Alzheimer Dementia Cerebrovascular disease Chronic diastolic and systolic congestive heart failure Hypertensive heart disease Permanent pacemaker Paroxysmal atrial fibrillation Diabetes mellitus type 2 with complications, including nephropathy and neuropathy Anemia Falls with bleeding risk History of chronic pancreatitis Plan: IV hydration. Monitor Labs Surgical Consultation PP[employer] medications EKG without injury. Laboratory Tests Test 09/03/18 14:55 White Blood Count 8.2 K/UL (4.8-10.8) Red Blood Count 3.79 M/UL (4.70-6.10) L Hemoglobin 11.6 G/DL (14.2-18.0) L Hematocrit 35.6 % (42.0-52.0) L Mean Corpuscular Volume 94 FL (80-99) Mean Corpuscular Hemoglobin 30.6 PG (27.0-31.0) Mean Corpuscular Hemoglobin Concent 32.6 G/DL (32.0-36.0) Red Cell Distribution Width 12.7 % (11.6-14.8) Platelet Count 221 K/UL (150-450) Mean Platelet Volume 6.0 FL (6.5-10.1) L Neutrophils (%) (Auto) 63.9 % (45.0-75.0) Lymphocytes (%) (Auto) 23.2 % (20.0-45.0) Monocytes (%) (Auto) 10.6 % (1.0-10.0) H Eosinophils (%) (Auto) 1.7 % (0.0-3.0) Basophils (%) (Auto) 0.7 % (0.0-2.0) Prothrombin Time 9.9 SEC (9.30-11.50) Prothrombin Time INR 0.9 (0.9-1.1) PTT 30 SEC (23-33) Urine Color Yellow Urine Appearance Clear Urine pH 7 (4.5-8.0) Urine Specific [place] 1.005 (1.005-1.035) Urine Protein 1+ (NEGATIVE) H Urine Glucose (UA) Negative (NEGATIVE) Urine Ketones Negative (NEGATIVE) Urine Blood Negative (NEGATIVE) Urine Nitrite Negative (NEGATIVE) Urine Bilirubin Negative (NEGATIVE) Urine Urobilinogen 4 MG/DL (0.0-1.0) H Urine Leukocyte Esterase Negative (NEGATIVE) Urine RBC 0-2 /HPF (0 - 0) H Urine WBC 0-2 /HPF (0 - 0) Urine Squamous Epithelial Cells None /LPF (NONE/OCC) Urine Bacteria Occasional /HPF (NONE) Sodium Level 138 MMOL/L (136-145) Potassium Level 4.6 MMOL/L (3.5-5.1) Chloride Level 103 MMOL/L (98-107) Carbon Dioxide Level 28 MMOL/L (21-32) Anion Gap 7 mmol/L (5-15) Blood Urea Nitrogen 24 mg/dL (7-18) H Creatinine 0.8 MG/DL (0.55-1.30) Estimate Glomerular Filtration Rate mL/min (>60) Glucose Level 151 MG/DL (74-106) H Calcium Level 10.4 MG/DL (8.5-10.1) H Total Bilirubin 0.5 MG/DL (0.2-1.0) Aspartate Amino Transferase (AST) 47 U/L (15-37) H Alanine Aminotransferase (ALT) 29 U/L (12-78) Alkaline Phosphatase 467 U/L (46-116) H Total Creatine Kinase 16 U/L (26-308) L Troponin I 0.021 ng/mL (0.000-0.056) Total Protein 6.4 G/DL (6.4-8.2) Albumin 2.0 G/DL (3.4-5.0) L Globulin 4.4 g/dL Albumin/Globulin Ratio 0.5 (1.0-2.7) L Lipase 209 U/L (73-393) EKG Diagnostic Results Rate: normal Rhythm: NSR ST Segments: no acute changes - Fascicular block Rhythm Strip Diag. Results EP Interpretation: yes Rhythm: NSR, no PVC's, no ectopy Chest X-Ray: no effusion, no pneumothorax, other - Increased heart, pacemaker KUB: nonspecific bowel gas, no sbo, other - Gastrostomy tube and increased stool CT Abdo Small bilateral pleural effusions with associated atelectasis. Mild cardiomegaly small pericardial effusion pacer wires. Hypoattenuating mass in the right liver concerning for hepatic neoplastic process. Stranding in the mesentery inferior to the liver could represent edema versus peritoneal carcinomatosis. Atrophy of the pancreas. G-tube in place. Normal appendix. Moderate stool in the Coden colon which could represent an element of fecal impaction. No bowel obstruction. Fluid and gas-filled small bowel loops are nonspecific. Atherotic's changes of vasculature. Nonspecific bilateral perinephric fat stranding. Small hypodensities in the right kidney. No hydronephrosis. Small to moderate amount of ascites. Body wall edema. Stable pathologic fracture deformity of T12 vertebral body with lucent lesion in T11 vertebral body is concerning for osseous metastasis. Small to moderate fat containing umbilical hernia with mild associated fat stranding. Marcellus Castillo MD Sep 04, 2018 10:31
--- NOTE | 2018-09-04 10:37 | Diagnostic Imaging Report ---
Indication: Abdominal pain. Mass. Patient is nonverbal and the altered. Patient could not cooperate. Technique: Continuous helical transaxial imaging of the abdomen and pelvis was obtained from the lung bases to the pubic symphysis during intravenous contrast administration. Coronal 2-D reformats were also obtained. Study obtained in a Siemens sensation [address] Automatic Exposure Control was utilized. Total Dose length Product (DLP): 876.[address] Dose Index Volume (CTDIvol): 16.58 mGy Comparison: CT abdomen noncontrast 07/02/2018, 02/10/2017 Findings: There is a heterogeneously enhancing mass that is hypodense present within the right lobe of the liver as has been previously discussed. The mass has a approximate measurements of 9 x 11 cm on transaxial images and is suspicious for malignant neoplasm. There is a small amount of subcapsular fluid surrounding the liver adjacent to the mass. There is a small amount of ascites that has developed. Not certain if this is related. A gastrostomy tube is present. There is a small pericardial effusion. Trace bilateral pleural effusions are present. There is posterior basal atelectasis. Bowel gas pattern is nonobstructive. There is no evidence of bowel obstruction. There is a umbilical hernia containing fat again demonstrated. Moderate aortoiliac calcifications are present. There is thickening of the wall the rectum which is distended due to fecal impaction. The bladder is unremarkable. There is no nephrolithiasis or hydronephrosis. Once again demonstrated there is essentially interbody fusion of T11 and T12 vertebra, with both vertebral bodies severely collapsed and anteriorly wedged. The presence of the interbody fusion suggest this is an old injury, likely pathologic fracture due to metastatic neoplasm. The fused vertebra appear sclerotic. There is some retropulsion and kyphotic angulation. Also the T9 vertebra is abnormally sclerotic. Correlate clinically for malignant neoplasm. IMPRESSION: Large heterogeneous mass in the right lobe of the liver suspicious for malignant neoplasm. Abnormal sclerosis of the T9 vertebra and a collapsed fused T11 and T12 vertebra. Consider evaluation with bone scan and correlation for malignant neoplasm as these are likely metastatic deposits. Development of ascites mild in degree. Development of a small pericardial effusion. Trace bilateral pleural effusion and posterior basal atelectasis. Gastrostomy Atherosclerotic vascular disease. Fecal impaction with evidence of proctocolitis. Umbilical hernia containing fat The CT scanner at [facility] is accredited by the [employer] and the scans are performed using dose optimization techniques as appropriate to a performed exam including Automatic Exposure control.
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
--- NOTE | 2018-09-04 11:02 | NUR ---
NURSE NOTES: Dr Desai phoned top inform him of skin care recommendations , and presence of cough bilateral crackles to upper chest
[2018-09-04 12:00] VITALS: BP 141/70
--- NOTE | 2018-09-04 12:54 | NUR ---
CASE MANAGEMENT: INITIAL REVIEW 77 YO M JAVED FROM [facility] CC: DISTENDED ABD PMHx: GTUBE. PANCREATITIS. CHF. HTN. A FIB. DEMENTIA. ANEMIA. SI:SBO T 97.8 HR 75 RR 18 B/P 136/72 SATS 95% ON RA BUN 24 GLU 151 CA 10.4 AST 47 ALP 467 TOTAL CK 16 IS: NS BOLUS X2 PATIENT ADMITTED TO MED/SURG 09/03/2018 @ 1512 DCP: PATIENT TO BE DISCHARGED TO SNF ONCE MEDICALLY CLEARED. PLAN OF CARE: PER SURGERY>> "does not require any surgery. He requires removal of the fecal impaction." Addendum: 09/04/18 at 1304 by Jessi Thomas INTERQUAL
--- NOTE | 2018-09-04 15:38 | Cardiology Report ---
APPROVED REPORT EKG Measurement Heart [id number] Sinus rhythm with premature supraventricular complexes Right bundle branch block Left anterior fascicular block Bifascicular block Septal infarct, age undetermined Abnormal ECG
[2018-09-04 16:00] VITALS: BP 153/68
--- NOTE | 2018-09-04 16:05 | NUR ---
NURSE NOTES:WOUND CARE NOTES:Pt presented on admission with an area of induration that maroon in colour. Tender when minimally palpated.(L)2cm x (W)1.5cm. Incontinence associated dermatitis periwound .Both clefts of buttocks, shaft of penis and scrotum erythematous with scattered satellite lesions cleft of buttocks. R heel is fluctuant with non-blanchable erythema. Tender when minimally palpated. L heel is boggy but pink in colour. Tx.Plan: Apply Triad paste to sacral area. Cover with Optifoam drsg. Change every 3 days and prn. Apply Triad Paste to scrtoum and buttocks with each Incontinence care. Apply Cavilon Skin Barrier to each heel. Cover each heel with Optifoam drsg. change every 7 days and prn. Reposition at least every 2hours or as tolerated. Off-load heels with Pillow.
--- NOTE | 2018-09-04 19:14 | NUR ---
NURSE NOTES: Pt required to be repositioned q 2 hours. Stay in same position , moves his legs minimally. Follow call required to Dr Desai for wound consult and pt cough. He had a recent xray on which was clear, yet upon assessment presence of bilateral crackles
--- NOTE | 2018-09-04 19:24 | NUR ---
NURSE NOTES: Dr Desai returned call informed senior writer that Shailesh is on the case . Did not give new orders for cough. Bilateral crackles to upper chest. Recent chest xray. was normal > did not give any new orders. Incontinent of urine x4 . IV site remains patent and functioning. Pt has been sleeping most of shift. Daughter phoned stated she will come to visit this evening. Current plan of care will be followed. Oncoming nurse made aware of skin concerns and reassessment of buttocks and heels.
--- NOTE | 2018-09-04 19:28 | NUR ---
HAND-OFF: Report given to MARIANNE GUEVARA.
--- NOTE | 2018-09-04 20:00 | NUR ---
NURSE NOTES: Received patient comfortably sleeping, abdomen distended, kept clean and dry.
[2018-09-04 20:18] VITALS: BP 134/70
[2018-09-04] MEDS: Donepezil 10mg tab GT SCH (20:49)
[2018-09-05 00:22] VITALS: BP 160/68
[2018-09-05 04:04] VITALS: BP 155/58
[2018-09-05] MEDS: NovoLOG Insulin Flexpen SUBQ SCH ×4 (06:04→21:00)
--- NOTE | 2018-09-05 07:08 | NUR ---
HAND-OFF: Report given to Rossi Francois RN.
--- NOTE | 2018-09-05 07:33 | NUR ---
NURSE NOTES: Received report from ISMAEL Bailey pt in bed, asleep, respirations regular and unlabored, no apparent distress noted, HOB greater than 30 degrees, bed in lowest position, call light within reach.
[2018-09-05 08:00] VITALS: BP 121/52
[2018-09-05] MEDS: Levemir Flexpen SUBQ SCH (08:59)
[2018-09-05] MEDS: Docusate 100mg/10ml Liq GT SCH ×2 (08:59→17:06)
[2018-09-05] MEDS: Losartan 50mg tab GT SCH (09:00)
[2018-09-05] MEDS: Vitamin D 1000 IU Tab GT SCH ×2 (09:00→17:06)
[2018-09-05] MEDS: Heparin 5000 units/ml inj SUBQ SCH ×2 (09:01→21:36)
[2018-09-05] MEDS: D5NS 1,000 ML IV SCH ×2 (11:21→21:36)
[2018-09-05 11:26] VITALS: BP 151/64
--- NOTE | 2018-09-05 15:28 | General Progress Note ---
Assessment/Plan Problem List: (1) Atrial fibrillation and flutter ICD Codes: I48.91 - Unspecified atrial fibrillation; I48.92 - Unspecified atrial flutter SNOMED: 115046227 (2) CHF (congestive heart failure) ICD Codes: I50.9 - Heart failure, unspecified SNOMED: 76288693 (3) Pancreatitis ICD Codes: K85.90 - Acute pancreatitis without necrosis or infection, unspecified SNOMED: 35347050 (4) CVA (cerebral vascular accident) ICD Codes: I63.9 - CVA (cerebral vascular accident) SNOMED: 070659885 (5) Abdominal distension ICD Codes: R14.0 - Abdominal distension (gaseous) SNOMED: 59620045 (6) Umbilical hernia ICD Codes: K42.9 - Umbilical hernia without obstruction or gangrene SNOMED: 625252211 Qualifiers: Qualified Codes: K42.9 - Umbilical hernia without obstruction or gangrene Assessment/Plan: liver mass abdominal distention PLAN NPO care as is await gi regarding feeds general surgery to follow monitor for change impression, plan, and exam edited and reviewed in detail care discussed with RN Subjective ROS Limited/Unobtainable: Yes Allergies: Coded Allergies: No Known Allergies (Verified , 06/07/08) Subjective abdmen distende gi and gs called to followup Objective Last 24 Hour Vital Signs Date Time Temp Pulse Resp B/P (MAP) Pulse Ox O2 Delivery O2 Flow Rate FiO2 09/05/18 11:26 96.8 96 20 151/64 (93) 97 09/05/18 09:00 Room Air 09/05/18 09:00 121/52 09/05/18 08:00 98.2 101 20 121/52 (75) 96 09/05/18 04:04 98.1 92 19 155/58 (90) 95 09/05/18 00:22 98.2 104 18 160/68 (98) 97 09/04/18 20:19 Room Air 09/04/18 20:18 97.9 93 16 134/70 (91) 97 09/04/18 16:00 97.4 94 20 153/68 (96) Intake and Output 09/04/18 09/05/18 19:00 07:00 Intake Total 700 ml 1100 ml Balance 700 ml 1100 ml Intake IV Total 700 ml 1100 ml # Voids 4 3 # Bowel Movements 1 1 Height (Feet): 5 Height (Inches): 8.00 Weight (Pounds): 160 Objective WDWN NAD clear breath sounds bilaterally without rhonchi or wheeze [id number] without MRG NABS noted distention GT in place no CCE nonfocal confused Dustin Mary MD Sep 05, 2018 15:28
[2018-09-05 16:00] VITALS: BP 142/64
--- NOTE | 2018-09-05 19:32 | NUR ---
HAND-OFF: Report given to ISMAEL Brand.
--- NOTE | 2018-09-05 19:53 | NUR ---
NURSE NOTES: Received report from ISMAEL Richey. Patient A&Ox1. On room air, no signs of distress or labored breathing. IV intact, patent, and infusing IV fluids. Bed in lowest position. Will continue with plan of care. Addendum: 09/05/18 at 2014 by Cathie Espino RN GT intact, patent, and clamped.
[2018-09-05 20:00] VITALS: BP 153/61
[2018-09-05] MEDS ORDERED: Tubing IV Secondary IV ONE (20:55)
[2018-09-05] MEDS ORDERED: NS 275ml ONE (20:55)
[2018-09-05] MEDS ORDERED: Sterile Water Irrig 1000ml IRRIG ONE (20:58)
[2018-09-05] MEDS ORDERED: D5NS 1000ml IV ONE (20:58)
[2018-09-05] MEDS: Donepezil 10mg tab GT SCH (21:33)
[2018-09-06] VITALS: BP 133/58
[2018-09-06 04:00] VITALS: BP 116/50
[2018-09-06] MEDS: NovoLOG Insulin Flexpen SUBQ SCH ×4 (05:51→23:03)
[2018-09-06] MEDS: D5NS 1,000 ML IV SCH ×2 (06:08→17:25)
--- NOTE | 2018-09-06 07:45 | NUR ---
NURSE NOTES: RN informed pt positive for VRE rectum. Dr. Mary notified. Pt moved to isolation room.
[2018-09-06 08:00] VITALS: BP 142/59
--- NOTE | 2018-09-06 08:30 | NUR ---
NURSE NOTES: RN received pt in stable condition, awake in bed. No acute distress or SOB. Bed in low, locked position, call light within reach. Will continue plan of care.
[2018-09-06] MEDS: Levemir Flexpen SUBQ SCH ×2 (09:00→17:13)
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
[2018-09-06] MEDS: Heparin 5000 units/ml inj SUBQ SCH ×2 (09:41→22:55)
[2018-09-06] MEDS: Losartan 50mg tab GT SCH (09:49)
[2018-09-06] MEDS: Vitamin D 1000 IU Tab GT SCH ×2 (09:50→17:26)
[2018-09-06] MEDS: Docusate 100mg/10ml Liq GT SCH ×2 (09:50→17:26)
--- NOTE | 2018-09-06 11:42 | GI Initial Consult Note ---
History of Present Illness General Date patient seen: Sep 06, 2018 Time patient seen: 11:35 Reason for Hospitalization: General Complaint Referring physician: NATASHA REARDON Reason for Consultation: FECAL IMPACATION Present Illness HPI Patient is sent in for abdominal distention. He is unable to give a history. There is no documentation that are present with him regarding this problem. He does have a gastrostomy tube. He also has a history of chronic pancreatitis. GI consulted for fecal impaction. ROS limited, patient seen awake alert. Noted that patient has a distended abdomen. Abdominal pelvis CT was performed, noted with a large heterogeneous mass in the right lobe of the liver suspicious for malignant neoplasm. Fecal impaction with evidence of proctocolitis. Reported by RN patient had bowel movement yesterday. Labs reviewed; H&H 12 and 37.7, sodium 135, alkaline phosphatase of 467. Unknown history of endoscopic colonoscopy. Patient was admitted in August with these discharge diagnoses: G-tube site cellulitis (with Pseudomonas Klebsiella and Streptococci) Chronic diastolic and systolic congestive heart failure Hypertensive heart disease sodium 135, alkaline phosphatase 467 Permanent pacemaker Paroxysmal atrial fibrillation Diabetes mellitus type 2 with complications, including nephropathy and neuropathy Cerebrovascular disease with dementia Falls with bleeding risk Anemia Home Meds Reported Medications Sitagliptin* (JANUVIA*) 25 Mg Tablet, 100 MG GT DAILY, TAB 09/03/18 Ciprofloxacin (CIPRO) 500 Mg/5 Ml Mirian.mc.rec, 500 MG GT BID for 7 Days 08/19/18 Amino Acids/Protein Hydrolys (PRO-STAT LIQUID) 30 Ml Liquid.pkt, 30 ML GT EVERY 8 HOURS, ML 07/02/18 Sitagliptin* (JANUVIA*) 25 Mg Tablet, 100 MG GT MORNING 07/02/18 Metformin Hcl* (METFORMIN HCL*) 500 Mg Tablet, 500 MG GT TWICE A DAY, TAB 07/01/18 Insulin Glargine (LANTUS) 100 Unit/1 Ml Insuln.pen, 5 UNITS SUBQ MORNING 07/01/18 Hydralazine HCl (Hydralazine HCl) 25 Mg Tablet, 25 MG GT Q6H PRN for For High Blood Pressure, TAB IF SBP >140 07/01/18 Docusate Sodium (DOCUSATE SODIUM) 50 Mg/5 Ml Liquid, 100 MG GT BID, ML 07/01/18 Acetaminophen* (ACETAMINOPHEN 325MG TABLET*) 325 Mg Tablet, 650 MG GT Q6H PRN for For Pain, TAB 07/01/18 Metoprolol Tartrate* (METOPROLOL TARTRATE*) 50 Mg Tablet, 50 MG GT EVERY 12 HOURS 02/10/17 Insulin Aspart* (NOVOLOG*) 100 Unit/1 Ml Insuln.pen, 0 SUBQ AC+HS PRN for Per rx protocol, #1 EA 0 Refills SLIDING SCALE 02/10/17 Cholecalciferol (Vitamin D3)* (VITAMIN D*) 1,000 Unit Tablet, 1000 UNITS GT TWICE A DAY 02/10/17 Atorvastatin Calcium* (LIPITOR*) 10 Mg Tablet, 10 MG GT BEDTIME, TAB 02/10/17 Losartan Potassium* (LOSARTAN POTASSIUM*) 50 Mg Tablet, 100 MG GT DAILY, TAB HOLD IF SBP<110 OR HR<60 07/20/14 Donepezil Hcl* (DONEPEZIL HCL*) 10 Mg Tab.rapdis, 10 MG GT BEDTIME for For Anxiety, TAB 07/20/14 Med list reviewed/reconciled: Yes Allergies: Coded Allergies: No Known Allergies (Verified , 06/07/08) Patient History History Provided By: Patient, Medical Record PMH Narrative Limited by: medical condition Past Medical History: see triage record, old chart reviewed Past Surgical History: pacemaker, other - Gastrostomy tube Social History Narrative SNF, full treatment Reviewed Nursing Documentation: PMH: Agreed; PSxH: Agreed Nursing Documentation-PMH Past Medical History: No History, Except For Hx Cardiac Problems: Yes - Atrial Fibrillation, Pacemaker Hx Hypertension: Yes Hx Pacemaker: Yes Hx Diabetes: Yes Hx Cancer: No Hx Gastrointestinal Problems: Yes - G-tube Hx Neurological Problems: Yes Hx Alzheimer's Disease: Yes Hx Dysphasia: Yes Social History: Denies: smoking, alcohol use, drug use, other Review of Systems All Other Systems: limited Physical Exam Vital Signs Date Time Temp Pulse Resp B/P (MAP) Pulse Ox O2 Delivery O2 Flow Rate FiO2 09/03/18 14:16 75 18 136/72 (93) 95 Room Air 09/03/18 14:31 97.8 Sp02 EP Interpretation: reviewed, normal General Appearance: well appearing, no apparent distress, alert Head: normocephalic EENT: PERRL/EOMI, normal ENT inspection Neck: supple Respiratory: normal breath sounds, no respiratory distress Cardiovascular: normal rate Gastrointestinal: normal inspection, non tender, soft, normal bowel sounds, non -distended Rectal: deferred Genitourinary: deferred Musculoskeletal: normal inspection, back normal Neurologic: normal inspection, alert, oriented x3, responsive Psychiatric: normal inspection, judgement/insight normal, memory normal Skin: normal inspection, normal color, no rash, warm/dry, palpation normal, well hydrated Lymphatic: normal inspection, no adenopathy Current Medications Current Medications Medications (Trade) Dose Ordered Sig/Reagan Route PRN Reason Start Time Stop Time Status Last Admin Dose Admin Acetaminophen (Tylenol) 650 mg Q4H PRN GT Mild Pain/Temp > 100.5 09/03/18 21:30 10/03/18 21:29 Atorvastatin Calcium (Lipitor) 10 mg BEDTIME GT 09/04/18 21:00 10/04/18 20:59 09/05/18 21:33 Dextrose (Dextrose 50%) 25 ml Q30M PRN IV Hypoglycemia 09/03/18 21:30 10/03/18 21:29 Dextrose (Dextrose 50%) 50 ml Q30M PRN IV Hypoglycemia 09/03/18 21:30 10/03/18 21:29 Dextrose/Sodium Chloride 1,000 ml @ 100 mls/hr Q10H IV 09/05/18 11:00 10/05/18 10:59 09/06/18 06:08 Docusate Sodium (Colace) 100 mg BID GT 09/04/18 09:00 10/04/18 08:59 09/06/18 09:50 Donepezil HCl (Aricept) 10 mg BEDTIME GT 09/04/18 21:00 10/04/18 20:59 09/05/18 21:33 Heparin Sodium (Porcine) (Heparin 5000 units/ml) 5,000 units EVERY 12 HOURS SUBQ 09/04/18 09:00 10/04/18 08:59 09/06/18 09:41 Hydralazine HCl (Apresoline) 25 mg Q6H PRN GT For High Blood Pressure 09/03/18 21:48 10/03/18 21:47 Insulin Aspart (NovoLOG) BEFORE MEALS AND HS SUBQ 09/04/18 06:30 10/04/18 06:29 Insulin Detemir (Levemir) 5 units DAILY SUBQ 09/04/18 09:00 10/04/18 08:59 09/05/18 08:59 Iopamidol (Isovue-300 100ml) 100 ml NOW PRN INJ Radiology Procedure 09/03/18 14:45 Losartan Potassium (Cozaar) 100 mg DAILY GT 09/04/18 09:00 10/04/18 08:59 09/06/18 09:49 Sitagliptin Phosphate (Januvia) 100 mg DAILY GT 09/04/18 09:00 10/04/18 08:59 09/06/18 09:49 Vitamin D (Vitamin D) 1,000 intlu TWICE A DAY GT 09/04/18 09:00 10/04/18 08:59 09/06/18 09:50 GI: Plan Problems: (1) Gastrostomy tube dependent (2) Fecal impaction (3) Liver mass (4) Constipation (5) Abdominal distension Plan Recommend oncology consultation to evaluate liver mass Aggressive bowel regimen, will consider digital disimpaction if medical management fails Maintain n.p.o. plus IV fluids Electrolyte correction Follow labs, CEA, AFP Discussed with Dr. Gonzales. Thank you for this patient referral, we will follow. The patient was seen and examined at bedside and all new and available data was reviewed in the patients chart. I agree with the above findings, impression and plan. (Patient seen earlier today. Signature stamp does not reflect patient encounter time.). - MD Lizzie Alas,[facility] [place]BA Sep 06, 2018 11:42
[2018-09-06] MEDS ORDERED: Fleet's Mineral Oil Enema RECTAL ONE (11:45)
[2018-09-06] MEDS ORDERED: Mineral Oil 30ml ud ORAL PRN (11:45)
[2018-09-06 12:00] VITALS: BP 151/71
--- NOTE | 2018-09-06 13:20 | NUR ---
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 FECAL IMPACTION . LIVER MASS VS:BP 151/71, P 94, T 97.2, RR 18, SpO2 95 RBC 3.99, H&H 12.0/37.7, Na 135, BUN 19, CR 0.5, Ca 10.3 IS:NOVOLOG SUBQ COZAAR 100mG JANUVIA 100mg D5/NS x1L IV LIPITOR 10mg ARICEPT 10mg PLAN:ONCOLOGY CONSULT AGGRESSIVE BOWEL REGIMEN NPO WITH IV FLUIDS MED/SURG STATUS
--- NOTE | 2018-09-06 15:06 | Pulmonology Progress Note ---
Assessment/Plan Assessment/Plan Pulmonary Progress Note Assessment/Plan Problem List: (1) Atrial fibrillation and flutter ICD Codes: I48.91 - Unspecified atrial fibrillation; I48.92 - Unspecified atrial flutter SNOMED: 646833247 (2) CHF (congestive heart failure) ICD Codes: I50.9 - Heart failure, unspecified SNOMED: 42970695 (3) Pancreatitis ICD Codes: K85.90 - Acute pancreatitis without necrosis or infection, unspecified SNOMED: 81273800 (4) CVA (cerebral vascular accident) ICD Codes: I63.9 - CVA (cerebral vascular accident) SNOMED: 387630523 (5) Abdominal distension ICD Codes: R14.0 - Abdominal distension (gaseous) SNOMED: 50426113 (6) Umbilical hernia ICD Codes: K42.9 - Umbilical hernia without obstruction or gangrene SNOMED: 739433100 Qualifiers: Qualified Codes: K42.9 - Umbilical hernia without obstruction or gangrene Assessment/Plan: liver mass abdominal distention PLAN NPO care as is await gi regarding feeds general surgery to follow monitor for change impression, plan, and exam edited and reviewed in detail care discussed with RN Subjective ROS Limited/Unobtainable: Yes Allergies: Coded Allergies: No Known Allergies (Verified , 06/07/08) Subjective abdmen distende gi and gs called to followup Objective Vital Signs Noted Height (Feet): 5 Height (Inches): 8.00 Weight (Pounds): 160 Objective WDWN NAD clear breath sounds bilaterally without rhonchi or wheeze [id number] without MRG NABS noted distention GT in place no CCE nonfocal confused Subjective ROS Limited/Unobtainable: No Allergies: Coded Allergies: No Known Allergies (Verified , 06/07/08) Objective Last 24 Hour Vital Signs Date Time Temp Pulse Resp B/P (MAP) Pulse Ox O2 Delivery O2 Flow Rate FiO2 09/06/18 12:00 97.8 94 18 151/71 (97) 95 09/06/18 09:49 142/59 09/06/18 09:00 Room Air 09/06/18 08:00 97.8 94 18 142/59 (86) 95 09/06/18 04:00 97.7 90 18 116/50 (72) 95 09/06/18 00:00 97.2 90 18 133/58 (83) 98 09/05/18 21:00 Room Air 09/05/18 20:00 97.4 92 18 153/61 (91) 98 09/05/18 16:00 98.4 90 19 142/64 (90) 98 Intake and Output 09/05/18 09/06/18 19:00 07:00 # Voids 4 2 Microbiology Date/Time Source Procedure Growth Status 09/03/18 15:05 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 Complete Current Medications Medications (Trade) Dose Ordered Sig/Reagan Route PRN Reason Start Time Stop Time Status Last Admin Dose Admin Acetaminophen (Tylenol) 650 mg Q4H PRN GT Mild Pain/Temp > 100.5 09/03/18 21:30 10/03/18 21:29 Atorvastatin Calcium (Lipitor) 10 mg BEDTIME GT 09/04/18 21:00 10/04/18 20:59 09/05/18 21:33 Dextrose (Dextrose 50%) 25 ml Q30M PRN IV Hypoglycemia 09/03/18 21:30 10/03/18 21:29 Dextrose (Dextrose 50%) 50 ml Q30M PRN IV Hypoglycemia 09/03/18 21:30 10/03/18 21:29 Dextrose/Sodium Chloride 1,000 ml @ 100 mls/hr Q10H IV 09/05/18 11:00 10/05/18 10:59 09/06/18 06:08 Docusate Sodium (Colace) 100 mg BID GT 09/04/18 09:00 10/04/18 08:59 09/06/18 09:50 Donepezil HCl (Aricept) 10 mg BEDTIME GT 09/04/18 21:00 10/04/18 20:59 09/05/18 21:33 Heparin Sodium (Porcine) (Heparin 5000 units/ml) 5,000 units EVERY 12 HOURS SUBQ 09/04/18 09:00 10/04/18 08:59 09/06/18 09:41 Hydralazine HCl (Apresoline) 25 mg Q6H PRN GT For High Blood Pressure 09/03/18 21:48 10/03/18 21:47 Insulin Aspart (NovoLOG) BEFORE MEALS AND HS SUBQ 09/04/18 06:30 10/04/18 06:29 09/06/18 12:09 Insulin Detemir (Levemir) 5 units DAILY SUBQ 09/04/18 09:00 10/04/18 08:59 09/05/18 08:59 Iopamidol (Isovue-300 100ml) 100 ml NOW PRN INJ Radiology Procedure 09/03/18 14:45 Losartan Potassium (Cozaar) 100 mg DAILY GT 09/04/18 09:00 10/04/18 08:59 09/06/18 09:49 Mineral Oil (Mineral Oil) 30 ml DAILYPRN PRN ORAL Constipation 09/06/18 11:45 10/06/18 11:44 Polyethylene Glycol (Miralax) 17 gm BEDTIME ORAL 09/06/18 21:00 10/06/18 20:59 Sitagliptin Phosphate (Januvia) 100 mg DAILY GT 09/04/18 09:00 10/04/18 08:59 09/06/18 09:49 Vitamin D (Vitamin D) 1,000 intlu TWICE A DAY GT 09/04/18 09:00 10/04/18 08:59 09/06/18 09:50 Marcellus Castillo MD Sep 06, 2018 15:06
--- NOTE | 2018-09-06 15:44 | NUR ---
RD ASSESSMENT & RECOMMENDATIONS SEE CARE ACTIVITY FOR COMPLETE ASSESSMENT DAILY ESTIMATED NEEDS: Needs based on DM/ 65.5kg 25-30 kcals/kg 0554-0091 total kcals 1-1.5 g protein/kg 66-99 g total protein 25-30 mL/kg 7995-3955 total fluid mLs NUTRITION DIAGNOSIS: Swallowing difficulty R/T dysphagia as evidenced by pt w/ GT, on GT feeding + oral diet on pureed HUMAN FACTORS ADVISOR LEAD, currently w/ an order for TF only. CURRENT DIET:NPO CURRENT TF:Vital AF 1.2 @ 20ml/hr x 24 hrs -> just ordered ENTERAL NUTRITION RECOMMENDATIONS: Glucerna 1.2 @ 60ml/hr x 24 hrs to provide 1440ml, 1728kcal, 86g prot, 1159ml free water * As medically appropriate, initiate TF * Rec initiate Glucerna 1.2 @ 20ml/hr x 6hrs. * Advance by 10ml/hr every 4-6 hours to goal rate * HOB >30 degrees, H2O flushes per MD * At goal, TF provides 100% of est. kcal & prot needs ADDITIONAL RECOMMENDATIONS: 1) Calibrated bedscale wt 2) Consider HEADING MAKER eval for oral diet -> Pt on pureed texture diet HUMAN FACTORS ADVISOR LEAD 3) Initiate TF as medically appropriate, rec as above -> admitted w/ abdomen distention 4) Wound healing: add Vit C 250mg QD, Jarocho 1pkt BID
[2018-09-06 16:00] VITALS: BP 143/66
--- NOTE | 2018-09-06 16:14 | NUR ---
NURSE NOTES: Enema given per order. Pt tolerated well.
--- NOTE | 2018-09-06 19:46 | NUR ---
NURSE NOTES: Received report from ISMAEL Barrett. Patient on room air. G-tube intact, patent, and GT feeding. IV intact, patent, and infusing fluids. Bed in lowest position. will continue with plan of care.
--- NOTE | 2018-09-06 19:50 | NUR ---
HAND-OFF: Report given to ISMAEL Bradford.
[2018-09-06 20:00] VITALS: BP 120/68
[2018-09-06] MEDS: Miralax 17gm pkt ORAL SCH (22:49)
[2018-09-06] MEDS: Donepezil 10mg tab GT SCH (22:50)
[2018-09-07] VITALS: BP 154/65
[2018-09-07 04:00] VITALS: BP 168/88
[2018-09-07] MEDS: D5NS 1,000 ML IV SCH ×3 (04:15→17:23)
[2018-09-07] MEDS: NovoLOG Insulin Flexpen SUBQ SCH ×4 (06:08→21:39)
[2018-09-07 07:18] LABS: BASOPHILS % (AUTO) 0.5 % (0.0-2.0); EOSINOPHILS % (AUTO) 1.7 % (0.0-3.0); HEMATOCRIT 35.6 % (42.0-52.0); HEMOGLOBIN 11.7 G/DL (14.2-18.0); LYMPHOCYTES % (AUTO) 25.7 % (20.0-45.0); MEAN CORPUSCULAR VOLUME 93 FL (80-99); MONOCYTES % (AUTO) 10.6 % (1.0-10.0); NEUTROPHILS % (AUTO) 61.5 % (45.0-75.0); PLATELET COUNT 235 K/UL (150-450); RED BLOOD COUNT 3.82 M/UL (4.70-6.10); RED CELL DISTRIBUTION WIDTH 13.1 % (11.6-14.8); WHITE BLOOD COUNT 6.9 K/UL (4.8-10.8)
--- NOTE | 2018-09-07 07:30 | NUR ---
NURSE NOTES: Received pt from RN GUSTAVO. Pt is confused x1. pt is in RA, No SOB or acute respiratory distress noted. pt has intact iv access RAC 20G is running well. pt has g tube in place is working well. g tube is hold due to abd x ray. all needs attended, bed is locked and is in the lowest position. call light within easy reach. will continue to monitor.
[2018-09-07 07:47] LABS: ALANINE AMINOTRANSFERASE 15 U/L (12-78); ALBUMIN 1.7 G/DL (3.4-5.0); ALBUMIN/GLOBULIN RATIO 0.4 (1.0-2.7); ALKALINE PHOSPHATASE 281 U/L (46-116); ANION GAP 6 mmol/L (5-15); ASPARTATE AMINO TRANSFERASE 40 U/L (15-37); BILIRUBIN,TOTAL 0.6 MG/DL (0.2-1.0); BLOOD UREA NITROGEN 8 mg/dL (7-18); CALCIUM 9.9 MG/DL (8.5-10.1); CARBON DIOXIDE 26 MMOL/L (21-32); CHLORIDE 111 MMOL/L (98-107); CREATININE 0.6 MG/DL (0.55-1.30); PHOSPHORUS 2.3 MG/DL (2.5-4.9); POTASSIUM 3.5 MMOL/L (3.5-5.1); SODIUM 143 MMOL/L (136-145)
[2018-09-07 08:00] VITALS: BP 136/54
--- NOTE | 2018-09-07 08:27 | NUR ---
HAND-OFF: Report given to ISMAEL Carney.
--- NOTE | 2018-09-07 09:14 | General Progress Note ---
Assessment/Plan Problem List: (1) Atrial fibrillation and flutter ICD Codes: I48.91 - Unspecified atrial fibrillation; I48.92 - Unspecified atrial flutter SNOMED: 993432391 (2) CHF (congestive heart failure) ICD Codes: I50.9 - Heart failure, unspecified SNOMED: 20111902 (3) Pancreatitis ICD Codes: K85.90 - Acute pancreatitis without necrosis or infection, unspecified SNOMED: 59094001 (4) CVA (cerebral vascular accident) ICD Codes: I63.9 - CVA (cerebral vascular accident) SNOMED: 601282640 (5) Abdominal distension ICD Codes: R14.0 - Abdominal distension (gaseous) SNOMED: 59219022 (6) Umbilical hernia ICD Codes: K42.9 - Umbilical hernia without obstruction or gangrene SNOMED: 022683043 Qualifiers: Qualified Codes: K42.9 - Umbilical hernia without obstruction or gangrene Assessment/Plan: liver mass abdominal distention PLAN GI follow up care as is feed as tolerated general surgery to follow monitor for change liver masses previously - family did not want any intervention will obtain onco evaluation and review impression, plan, and exam edited and reviewed in detail care discussed with RN Subjective Allergies: Coded Allergies: No Known Allergies (Verified , 06/07/08) Subjective abdmen distended care noted and reviewed Objective Last 24 Hour Vital Signs Date Time Temp Pulse Resp B/P (MAP) Pulse Ox O2 Delivery O2 Flow Rate FiO2 09/07/18 04:00 97.6 113 20 168/88 (114) 96 09/07/18 00:00 97.6 93 19 154/65 (94) 96 09/06/18 21:00 Room Air 09/06/18 20:00 98.2 104 18 120/68 (85) 98 09/06/18 16:00 97.2 93 20 143/66 (91) 95 09/06/18 12:00 97.8 94 18 151/71 (97) 95 09/06/18 09:49 142/59 Intake and Output 09/06/18 09/07/18 18:59 06:59 # Voids 3 2 Laboratory Tests 09/07/18 05:55: White Blood Count 6.9, Red Blood Count 3.82L, Hemoglobin 11.7L, Hematocrit 35.6L , Mean Corpuscular Volume 93, Mean Corpuscular Hemoglobin 30.7, Mean Corpuscular Hemoglobin Concent 32.9, Red Cell Distribution Width 13.1, Platelet Count 235, Mean Platelet Volume 5.9L, Neutrophils (%) (Auto) 61.5, Lymphocytes ( %) (Auto) 25.7, Monocytes (%) (Auto) 10.6H, Eosinophils (%) (Auto) 1.7, Basophils (%) (Auto) 0.5, Sodium Level 143, Potassium Level 3.5, Chloride Level 111H, Carbon Dioxide Level 26, Anion Gap 6, Blood Urea Nitrogen 8, Creatinine 0.6, Estimat Glomerular Filtration Rate , Glucose Level 114H, Calcium Level 9.9 , Phosphorus Level 2.3L, Magnesium Level 1.6L, Total Bilirubin 0.6, Aspartate Amino Transf (AST/SGOT) 40H, Alanine Aminotransferase (ALT/SGPT) 15, Alkaline Phosphatase 281H, Total Protein 5.7L, Albumin 1.7L, Globulin 4.0, Albumin/ Globulin Ratio 0.4L, Alpha Fetoprotein [Pending], Carcinoembryonic Antigen [ Pending] Height (Feet): 5 Height (Inches): 8.00 Weight (Pounds): 160 Objective WDWN NAD clear breath sounds bilaterally without rhonchi or wheeze [id number] without MRG NABS noted distention GT in place no CCE nonfocal confused Dustin Mary MD Sep 07, 2018 09:14
[2018-09-07] MEDS: Losartan 50mg tab GT SCH (09:55)
[2018-09-07] MEDS: Vitamin D 1000 IU Tab GT SCH ×2 (09:55→17:12)
[2018-09-07] MEDS: Docusate 100mg/10ml Liq GT SCH ×2 (09:55→17:13)
[2018-09-07] MEDS: Heparin 5000 units/ml inj SUBQ SCH ×2 (09:57→21:19)
[2018-09-07] MEDS: Levemir Flexpen SUBQ SCH (09:58)
--- NOTE | 2018-09-07 10:40 | Diagnostic Imaging Report ---
EXAM: XR Abdomen, 2 Views CLINICAL HISTORY: F/U TECHNIQUE: Frontal view of the abdomen/pelvis with upright view of the abdomen. COMPARISON: CT abdomen and pelvis dated 07/02/18 FINDINGS: Lower thorax: Cardiac pacer lead with the tip at the region of the cardiac apex. Intraperitoneal space: No evidence of free air below the diaphragm. Gastrointestinal tract: Mild residual contrast and fecal material seen throughout the colon and rectum, without abnormal distention. Bowel gas pattern is nonspecific and nonobstructive. Organs: The renal shadows are obscured by overlying bowel gas. Bones/joints: Extensive degenerative changes throughout the visualized spine. IMPRESSION: Mild residual contrast and fecal material seen throughout the colon and rectum, without abnormal distention. Bowel gas pattern is nonspecific and nonobstructive.
[2018-09-07 12:00] VITALS: BP 137/81
--- NOTE | 2018-09-07 15:00 | NUR ---
NURSE NOTES: Dr HERNANDEZ visited pt and is notified about PH, MG, ABD X RAY and other lab results. he will F/U. will continue to monitor.
[2018-09-07] MEDS ORDERED: Fleet's Enema 133ml RECTAL SCH (15:15)
[2018-09-07] MEDS ORDERED: Milk of Magnesia 30ml Ud ORAL SCH (15:15)
[2018-09-07] MEDS ORDERED: Magnesium Chloride w/Calcium Tab ORAL SCH (15:30)
[2018-09-07] MEDS ORDERED: Phospha 250 Neutral tab ORAL SCH (15:30)
[2018-09-07 16:00] VITALS: BP 127/72
--- NOTE | 2018-09-07 16:13 | General Progress Note ---
Progress Note Progress Note labs noted kub noted needs aggressive bowel regimen and enema ordered above replaced electrolytes Jesse Cash Sep 07, 2018 16:13
[2018-09-07] MEDS ORDERED: DONEPEZIL HCL10 MG GT (18:00)
--- NOTE | 2018-09-07 19:11 | NUR ---
HAND-OFF: Report given to ISMAEL PÉREZ. Addendum: 09/07/18 at 1926 by Rommel Jones RN ERROR HAND-OFF: Report given to ISMAEL ARCHULETA.
--- NOTE | 2018-09-07 19:30 | NUR ---
NURSE NOTES: Received report & pt from ISMAEL Carney. Pt lying in bed, a&ox1 & confused, in room air. No s/s of acute distress & no s/s of pain at this time. GT intact with tube feeding as ordered. HOB up for aspiration precaution. IV site intact with IVF running as ordered. Bed in lowest position, call light within reach. Will continue to monitor.
[2018-09-07 20:00] VITALS: BP 137/81
[2018-09-07] MEDS: Miralax 17gm pkt ORAL SCH (21:19)
[2018-09-07] MEDS: Donepezil 10mg tab GT SCH (21:19)
[2018-09-08] VITALS: BP 154/71
[2018-09-08] MEDS: D5NS 1,000 ML IV SCH ×3 (03:00→14:58)
[2018-09-08 04:00] VITALS: BP 145/81
[2018-09-08] MEDS: NovoLOG Insulin Flexpen SUBQ SCH ×4 (05:51→21:57)
--- NOTE | 2018-09-08 07:01 | NUR ---
NURSE NOTES: Called Dr. Gonzales re: pt pulled out GTube. Per MD, Insert johnston now to keep stoma open & order 20Fr GT replacement from central suply & leave @ bedside for MD to insert later
--- NOTE | 2018-09-08 07:17 | General Progress Note ---
Assessment/Plan Problem List: (1) Atrial fibrillation and flutter ICD Codes: I48.91 - Unspecified atrial fibrillation; I48.92 - Unspecified atrial flutter SNOMED: 885470024 (2) CHF (congestive heart failure) ICD Codes: I50.9 - Heart failure, unspecified SNOMED: 88716389 (3) Pancreatitis ICD Codes: K85.90 - Acute pancreatitis without necrosis or infection, unspecified SNOMED: 92030194 (4) CVA (cerebral vascular accident) ICD Codes: I63.9 - CVA (cerebral vascular accident) SNOMED: 851738258 (5) Abdominal distension ICD Codes: R14.0 - Abdominal distension (gaseous) SNOMED: 92171971 (6) Umbilical hernia ICD Codes: K42.9 - Umbilical hernia without obstruction or gangrene SNOMED: 668646874 Qualifiers: Qualified Codes: K42.9 - Umbilical hernia without obstruction or gangrene Assessment/Plan: liver mass abdominal distention PLAN GI follow up - GT replacement lytes replaced care as is feed as tolerated general surgery to follow monitor for change liver masses previously - family did not want any intervention will obtain onco evaluation and review finalize gi recommendations for dc back to snf impression, plan, and exam edited and reviewed in detail care discussed with RN Subjective ROS Limited/Unobtainable: Yes Allergies: Coded Allergies: No Known Allergies (Verified , 06/07/08) Subjective abdomen with minimal improvement GS noted GI noted pulled out GT care noted and reviewed Objective Last 24 Hour Vital Signs Date Time Temp Pulse Resp B/P (MAP) Pulse Ox O2 Delivery O2 Flow Rate FiO2 09/08/18 04:00 99.2 81 20 145/81 (102) 95 09/08/18 00:00 97.2 101 20 154/71 (98) 100 09/07/18 21:00 Room Air 09/07/18 20:00 98.4 81 17 137/81 (99) 96 09/07/18 16:00 97.8 79 18 127/72 (90) 95 09/07/18 12:00 98.4 81 17 137/81 (99) 96 09/07/18 09:55 136/54 09/07/18 09:00 Room Air 09/07/18 08:00 98.6 93 17 136/54 (81) 96 Intake and Output 09/07/18 09/08/18 19:00 07:00 Intake Total 1400 ml 1020 ml Balance 1400 ml 1020 ml Intake IV Total 1200 ml 1000 ml Tube Feeding 200 ml 20 ml # Voids 3 2 # Bowel Movements 1 Height (Feet): 5 Height (Inches): 8.00 Weight (Pounds): 160 Objective WDWN NAD clear breath sounds bilaterally without rhonchi or wheeze [id number] without MRG NABS noted distention; nontender GT pulled out no CCE nonfocal skin exam noted confused reviewed and examined Dustin Mary MD Sep 08, 2018 07:17
--- NOTE | 2018-09-08 07:30 | NUR ---
NURSE NOTES: Received pt from ISMAEL BARNES. Pt is confused x1. pt is in RA, No SOB or acute respiratory distress noted. pt has intact iv access RAC 20G SL and LH 22G is running well. pt has no g tube in place and there is a Schmid in stoma to keep it open from previous shift. all needs attended, bed is locked and is in the lowest position. call light within easy reach. will continue to monitor.
--- NOTE | 2018-09-08 07:31 | NUR ---
HAND-OFF: Report given to ISMAEL Carney. Rounds done. Placed johnston into gtube stoma as per MD 's order. Endorsed to ISMAEL Carney to f/u with central supply re: 20Fr Gtube replacement to be placed at bedside for Dr. Gonzales; RN checked dumbwaiter but there's still none.
[2018-09-08 08:00] VITALS: BP 129/86
[2018-09-08] MEDS: Vitamin D 1000 IU Tab GT SCH ×3 (09:00→17:11)
[2018-09-08] MEDS: Magnesium Chloride w/Calcium Tab ORAL SCH ×2 (09:00→10:05)
[2018-09-08] MEDS: Docusate 100mg/10ml Liq GT SCH ×3 (09:00→17:12)
[2018-09-08] MEDS: Losartan 50mg tab GT SCH ×2 (09:00→10:05)
[2018-09-08] MEDS: Heparin 5000 units/ml inj SUBQ SCH ×2 (09:22→21:33)
--- NOTE | 2018-09-08 10:00 | General Progress Note ---
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 SNOMED: 205188574, 364275508, 915725781 (2) Anemia ICD Codes: D64.9 - Anemia, unspecified SNOMED: 797629585 (3) Liver mass ICD Codes: R16.0 - Hepatomegaly, not elsewhere classified SNOMED: 636750714 (4) Fecal impaction ICD Codes: K56.41 - Fecal impaction SNOMED: 91547642 (5) CVA (cerebral vascular accident) ICD Codes: I63.9 - CVA (cerebral vascular accident) SNOMED: 085520156 (6) CHF (congestive heart failure) ICD Codes: I50.9 - Heart failure, unspecified SNOMED: 21225002 (7) Atrial fibrillation and flutter ICD Codes: I48.91 - Unspecified atrial fibrillation; I48.92 - Unspecified atrial flutter SNOMED: 404740626 (8) Constipation ICD Codes: K59.00 - Constipation, unspecified SNOMED: 19344980 Qualifiers: Qualified Codes: K59.00 - Constipation, unspecified (9) Abdominal distension ICD Codes: R14.0 - Abdominal distension (gaseous) SNOMED: 38632688 Assessment/Plan: GT was changed at the bedside start GTF anemia work up tumor markers bowel regimen liver biopsy Subjective ROS Limited/Unobtainable: No Allergies: Coded Allergies: No Known Allergies (Verified , 06/07/08) Objective Last 24 Hour Vital Signs Date Time Temp Pulse Resp B/P (MAP) Pulse Ox O2 Delivery O2 Flow Rate FiO2 09/08/18 08:00 98.0 76 17 129/86 (100) 96 09/08/18 04:00 99.2 81 20 145/81 (102) 95 09/08/18 00:00 97.2 101 20 154/71 (98) 100 09/07/18 21:00 Room Air 09/07/18 20:00 98.4 81 17 137/81 (99) 96 09/07/18 16:00 97.8 79 18 127/72 (90) 95 09/07/18 12:00 98.4 81 17 137/81 (99) 96 Intake and Output 09/07/18 09/08/18 19:00 07:00 Intake Total 1400 ml 1220 ml Balance 1400 ml 1220 ml Intake IV Total 1200 ml 1200 ml Tube Feeding 200 ml 20 ml # Voids 3 2 # Bowel Movements 1 Height (Feet): 5 Height (Inches): 8.00 Weight (Pounds): 160 General Appearance: lethargic EENT: normal ENT inspection Neck: supple Cardiovascular: normal rate Respiratory/Chest: decreased breath sounds Abdomen: normal bowel sounds, non tender, soft Extremities: non-tender Demetris Gonzales MD Sep 08, 2018 10:00
--- NOTE | 2018-09-08 10:17 | NUR ---
NURSE NOTES: Dr MELCHOR visited pt and he replaced g tube and started g tube feeding. all morning meds given after g tube replacement. wilol continue to monitor.
[2018-09-08] MEDS ORDERED: Zinc Oxide Oint 2oz TOPIC PRN (10:30)
[2018-09-08 12:00] VITALS: BP 125/79
[2018-09-08] MEDS: ZINC OXIDE TOPIC SCH ×2 (12:04→17:12)
[2018-09-08] MEDS: Lactulose 10gm/15ml UDC ORAL SCH ×2 (12:32→17:12)
--- NOTE | 2018-09-08 14:18 | General Progress Note ---
Progress Note Progress Note abd softer today no n/v/f/c tolerating diet had BM -cont with bowel regimen and enema AM Jesse Johnson Sep 08, 2018 14:18
[2018-09-08] MEDS ORDERED: Fleet's Enema 133ml RECTAL SCH (14:30)
[2018-09-08 16:00] VITALS: BP 157/66
--- NOTE | 2018-09-08 18:05 | NUR ---
NURSE NOTES: pt has 110 ml residual with 40ml/hr at 1800, stop g tube. will continue to monitor.
--- NOTE | 2018-09-08 19:16 | NUR ---
HAND-OFF: Report given to ISMAEL RIVAS .
--- NOTE | 2018-09-08 19:20 | NUR ---
NURSE NOTES: Received pt from ISMAEL Carney. Pt is confused x1. pt is on RA, No SOB or acute respiratory distress noted. pt has intact iv access LH 22G D5NS at 100 ml/h. Pt has G tube which feeding has been held as residual was greater than 100 at 110 ml. Will reassess and resume feed at lower rate. Bed is locked and is in the lowest position, bed alarm on. call light within reach. will continue to monitor.
[2018-09-08 20:00] VITALS: BP 170/80
--- NOTE | 2018-09-08 21:00 | NUR ---
NURSE NOTES: Contacted Dr Gonzales to see if he still planned to do US liver biopsy and when it will occur . Will await call.
--- NOTE | 2018-09-08 21:30 | NUR ---
NURSE NOTES: Contacted family member, Carolina Carney to see if she had been contacted regarding possible liver biopsy. Pt said she will wait for call as she was not aware of any possible procedure.
--- NOTE | 2018-09-08 21:30 | NUR ---
NURSE NOTES: No residual, restarted GT feed at 30 ml/h and see how pt will tolerate feed. will continue to monitor
[2018-09-08] MEDS: Donepezil 10mg tab GT SCH (21:31)
[2018-09-08] MEDS: Miralax 17gm pkt ORAL SCH (21:32)
[2018-09-08] MEDS: HydrALAZINE 25mg tab GT PRN (21:32)
[2018-09-09] VITALS: BP 160/75
[2018-09-09 04:00] VITALS: BP 128/81
[2018-09-09] MEDS: D5NS 1,000 ML IV SCH ×3 (05:23→21:51)
--- NOTE | 2018-09-09 06:05 | NUR ---
NURSE NOTES: Increased GT feed to 40ml/h
[2018-09-09] MEDS: NovoLOG Insulin Flexpen SUBQ SCH ×4 (06:11→21:10)
--- NOTE | 2018-09-09 07:30 | NUR ---
NURSE NOTES: Received pt from ISMAEL Baldwin. Pt is confused x1. pt is in RA, No SOB or acute respiratory distress noted. pt has intact iv access LFA 22G is running well. pt has g tube in place is working well. all needs attended, bed is locked and is in the lowest position. call light within easy reach. will continue to monitor.
--- NOTE | 2018-09-09 07:35 | NUR ---
HAND-OFF: Report given to ISMAEL Carney.
[2018-09-09 08:00] VITALS: BP 110/82
--- NOTE | 2018-09-09 08:11 | General Progress Note ---
Assessment/Plan Problem List: (1) Atrial fibrillation and flutter ICD Codes: I48.91 - Unspecified atrial fibrillation; I48.92 - Unspecified atrial flutter SNOMED: 734385800 (2) CHF (congestive heart failure) ICD Codes: I50.9 - Heart failure, unspecified SNOMED: 64802600 (3) Pancreatitis ICD Codes: K85.90 - Acute pancreatitis without necrosis or infection, unspecified SNOMED: 10825875 (4) CVA (cerebral vascular accident) ICD Codes: I63.9 - CVA (cerebral vascular accident) SNOMED: 002918083 (5) Abdominal distension ICD Codes: R14.0 - Abdominal distension (gaseous) SNOMED: 16108292 (6) Umbilical hernia ICD Codes: K42.9 - Umbilical hernia without obstruction or gangrene SNOMED: 017395164 Qualifiers: Qualified Codes: K42.9 - Umbilical hernia without obstruction or gangrene Assessment/Plan: liver mass abdominal distention PLAN GI follow up - GT replacement appreciated feed as tolerated general surgery reviewed monitor for change liver masses previously - family did not want any intervention onc evaluation called finalize gi recommendations for dc back to snf when stable impression, plan, and exam edited and reviewed in detail care discussed with RN Subjective Allergies: Coded Allergies: No Known Allergies (Verified , 06/07/08) Subjective abdomen softer GS noted GI noted pulled out GT and replaced at bedside care noted and reviewed Objective Last 24 Hour Vital Signs Date Time Temp Pulse Resp B/P (MAP) Pulse Ox O2 Delivery O2 Flow Rate FiO2 09/09/18 04:00 96.8 107 19 128/81 (97) 95 09/09/18 00:00 97.5 92 19 160/75 (103) 96 09/08/18 21:32 170/80 09/08/18 21:00 Room Air 09/08/18 20:00 98.4 98 19 170/80 (110) 98 09/08/18 16:00 98.0 94 17 157/66 (96) 98 09/08/18 12:00 98.6 82 18 125/79 (94) 98 09/08/18 10:05 129/86 09/08/18 09:00 Room Air Intake and Output 09/08/18 09/09/18 19:00 07:00 Intake Total 1580 ml 150 ml Balance 1580 ml 150 ml Intake Free Water 300 ml 150 ml IV Total 1000 ml Tube Feeding 280 ml 0 ml # Voids 3 # Bowel Movements 3 Height (Feet): 5 Height (Inches): 8.00 Weight (Pounds): 160 Objective WDWN NAD clear breath sounds bilaterally without rhonchi or wheeze [id number] without MRG NABS noted distention; nontender GT replaced no CCE nonfocal skin exam noted confused reviewed and examined Dustin Mary MD Sep 09, 2018 08:11
[2018-09-09 08:52] LABS: ALANINE AMINOTRANSFERASE 10 U/L (12-78); ALBUMIN 1.9 G/DL (3.4-5.0); ALBUMIN/GLOBULIN RATIO 0.4 (1.0-2.7); ALKALINE PHOSPHATASE 347 U/L (46-116); ANION GAP 9 mmol/L (5-15); ASPARTATE AMINO TRANSFERASE 42 U/L (15-37); BILIRUBIN,TOTAL 0.6 MG/DL (0.2-1.0); BLOOD UREA NITROGEN 10 mg/dL (7-18); CARBON DIOXIDE 21 MMOL/L (21-32); CHLORIDE 111 MMOL/L (98-107); CREATININE 0.7 MG/DL (0.55-1.30); POTASSIUM 3.7 MMOL/L (3.5-5.1); SODIUM 141 MMOL/L (136-145)
[2018-09-09 08:57] LABS: CALCIUM 10.1 MG/DL (8.5-10.1)
[2018-09-09 09:07] LABS: BASOPHILS % (AUTO) 0.6 % (0.0-2.0); EOSINOPHILS % (AUTO) 1.8 % (0.0-3.0); HEMATOCRIT 40.8 % (42.0-52.0); HEMOGLOBIN 12.7 G/DL (14.2-18.0); MEAN CORPUSCULAR VOLUME 97 FL (80-99); MONOCYTES % (AUTO) 8.3 % (1.0-10.0); NEUTROPHILS % (AUTO) 71.3 % (45.0-75.0); PLATELET COUNT 240 K/UL (150-450); RED BLOOD COUNT 4.21 M/UL (4.70-6.10); WHITE BLOOD COUNT 6.7 K/UL (4.8-10.8)
[2018-09-09] MEDS: Lactulose 10gm/15ml UDC ORAL SCH ×3 (09:22→17:09)
[2018-09-09] MEDS: Vitamin D 1000 IU Tab GT SCH ×2 (09:22→17:09)
[2018-09-09] MEDS: Losartan 50mg tab GT SCH (09:22)
[2018-09-09] MEDS: Magnesium Chloride w/Calcium Tab ORAL SCH (09:22)
[2018-09-09] MEDS: Docusate 100mg/10ml Liq GT SCH ×2 (09:22→17:09)
[2018-09-09] MEDS: Levemir Flexpen SUBQ SCH (09:24)
[2018-09-09] MEDS: Heparin 5000 units/ml inj SUBQ SCH ×2 (09:24→20:58)
[2018-09-09] MEDS: ZINC OXIDE TOPIC SCH ×3 (09:25→17:19)
[2018-09-09 09:27] LABS: % IRON SATURATION 16 % (15-50); IRON 31 ug/dL (50-175); TOTAL IRON BINDING CAPACITY 194 ug/dL (250-450)
--- NOTE | 2018-09-09 10:41 | Diagnostic Imaging Report ---
Indication: Abdominal distention Technique: Supine view of the abdomen Comparison: 09/07/2018 Findings: Previously demonstrated colonic contrast is no longer evident. Bowel gas pattern is unremarkable. No unusual masses or calcifications. 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 There are degenerative changes of the thoracolumbar junction. Extensive prostatic calcifications are noted. Impression: No acute process
--- NOTE | 2018-09-09 10:47 | GI Progress Note ---
Assessment/Plan Problems: (1) Anemia ICD Codes: D64.9 - Anemia, unspecified SNOMED: 361832524 (2) Liver mass ICD Codes: R16.0 - Hepatomegaly, not elsewhere classified SNOMED: 927883681 (3) Fecal impaction ICD Codes: K56.41 - Fecal impaction SNOMED: 99030067 (4) CVA (cerebral vascular accident) ICD Codes: I63.9 - CVA (cerebral vascular accident) SNOMED: 570046584 (5) G tube feedings ICD Codes: Z93.1 - Gastrostomy status SNOMED: 380655901, 079591390, 582089683 (6) Abdominal distension ICD Codes: R14.0 - Abdominal distension (gaseous) SNOMED: 68382194 (7) Constipation ICD Codes: K59.00 - Constipation, unspecified SNOMED: 57097780 Qualifiers: Qualified Codes: K59.00 - Constipation, unspecified Status: stable Status Narrative Discussed with Dr. Gonzales Assessment/Plan RN reported that the patient had multiple bowel movements yesterday Today's KUB reviewed, no acute process GT was changed at the bedside Continue G-tube feedings Reglan as needed for motility Monitor H&H, PRN transfusions Turn patient every 2 hours tumor markers bowel regimen liver biopsy The patient was seen and examined at bedside and all new and available data was reviewed in the patients chart. I agree with the above findings, impression and plan. (Patient seen earlier today. Signature stamp does not reflect patient encounter time.). - Demetris Gonzales MD Subjective Subjective Limited Objective Last 24 Hour Vital Signs Date Time Temp Pulse Resp B/P (MAP) Pulse Ox O2 Delivery O2 Flow Rate FiO2 09/09/18 09:22 110/82 09/09/18 08:00 97.9 98 19 110/82 (91) 97 09/09/18 04:00 96.8 107 19 128/81 (97) 95 09/09/18 00:00 97.5 92 19 160/75 (103) 96 09/08/18 21:32 170/80 09/08/18 21:00 Room Air 09/08/18 20:00 98.4 98 19 170/80 (110) 98 09/08/18 16:00 98.0 94 17 157/66 (96) 98 09/08/18 12:00 98.6 82 18 125/79 (94) 98 Intake and Output 09/08/18 09/09/18 19:00 07:00 Intake Total 1580 ml 150 ml Balance 1580 ml 150 ml Intake Free Water 300 ml 150 ml IV Total 1000 ml Tube Feeding 280 ml 0 ml # Voids 3 # Bowel Movements 3 Laboratory Tests Test 09/09/18 07:05 09/09/18 08:45 Sodium Level 141 MMOL/L (136-145) Potassium Level 3.7 MMOL/L (3.5-5.1) Chloride Level 111 MMOL/L (98-107) H Carbon Dioxide Level 21 MMOL/L (21-32) Anion Gap 9 mmol/L (5-15) Blood Urea Nitrogen 10 mg/dL (7-18) Creatinine 0.7 MG/DL (0.55-1.30) Estimat Glomerular Filtration Rate mL/min (>60) Glucose Level 182 MG/DL (74-106) H Calcium Level 10.1 MG/DL (8.5-10.1) Total Bilirubin 0.6 MG/DL (0.2-1.0) Aspartate Amino Transf (AST/SGOT) 42 U/L (15-37) H Alanine Aminotransferase (ALT/SGPT) 10 U/L (12-78) L Alkaline Phosphatase 347 U/L (46-116) H Total Protein 6.5 G/DL (6.4-8.2) Albumin 1.9 G/DL (3.4-5.0) L Globulin 4.6 g/dL Albumin/Globulin Ratio 0.4 (1.0-2.7) L White Blood Count 6.7 K/UL (4.8-10.8) Red Blood Count 4.21 M/UL (4.70-6.10) L Hemoglobin 12.7 G/DL (14.2-18.0) L Hematocrit 40.8 % (42.0-52.0) L Mean Corpuscular Volume 97 FL (80-99) Mean Corpuscular Hemoglobin 30.2 PG (27.0-31.0) Mean Corpuscular Hemoglobin Concent 31.2 G/DL (32.0-36.0) L Red Cell Distribution Width 14.0 % (11.6-14.8) Platelet Count 240 K/UL (150-450) Mean Platelet Volume 5.6 FL (6.5-10.1) L Neutrophils (%) (Auto) 71.3 % (45.0-75.0) Lymphocytes (%) (Auto) 18.0 % (20.0-45.0) L Monocytes (%) (Auto) 8.3 % (1.0-10.0) Eosinophils (%) (Auto) 1.8 % (0.0-3.0) Basophils (%) (Auto) 0.6 % (0.0-2.0) Iron Level 31 ug/dL (50-175) L Total Iron Binding Capacity 194 ug/dL (250-450) L Percent Iron Saturation 16 % (15-50) Unsaturated Iron Binding 163 ug/dL (112-346) Height (Feet): 5 Height (Inches): 8.00 Weight (Pounds): 160 General Appearance: alert Cardiovascular: normal rate Respiratory/Chest: no respiratory distress Abdominal Exam: distended Michelle Samuel NP Sep 09, 2018 10:47
--- NOTE | 2018-09-09 11:32 | NUR ---
RD ASSESSMENT & RECOMMENDATIONS SEE CARE ACTIVITY FOR COMPLETE ASSESSMENT DAILY ESTIMATED NEEDS: Needs based on DM/ 65.5kg 25-30 kcals/kg 4036-6874 total kcals 1-1.5 g protein/kg 66-99 g total protein 25-30 mL/kg 4327-4728 total fluid mLs NUTRITION DIAGNOSIS: Swallowing difficulty R/T dysphagia as evidenced by pt w/ GT, on GT feeding + oral diet on pureed [employer], currently w/ an order for TF only. (CURRENT TF: Vital AF 1.2 @ 60ml/hr x 24 hrs) ENTERAL NUTRITION RECOMMENDATIONS: Glucerna 1.2 @ 60ml/hr x 24 hrs to provide 1440ml, 1728kcal, 86g prot, 1159ml free water * As medically appropriate, initiate TF * Rec initiate Glucerna 1.2 @ 20ml/hr x 6hrs. * Advance by 10ml/hr every 4-6 hours to goal rate * HOB >30 degrees, H2O flushes per MD * At goal, TF provides 100% of est. kcal & prot needs -------- ADDITIONAL RECOMMENDATIONS: 1) Calibrated bedscale wt 2) Consider [employer] eval for oral diet -> Pt on pureed texture diet [employer] 3) Initiate TF as medically appropriate, rec as above -> admitted w/ abdomen distention 4) Wound healing: add Vit C 250mg QD, Jarocho 1pkt BID
[2018-09-09 12:00] VITALS: BP 118/87
--- NOTE | 2018-09-09 14:24 | General Progress Note ---
Progress Note Progress Note doing better multiple BM's KUB with no acute process cont with diet as tolerated no acute surgical intervention planned thank you Jesse Cash Sep 09, 2018 14:24
[2018-09-09 16:00] VITALS: BP 171/80
[2018-09-09] MEDS: HydrALAZINE 25mg tab GT PRN (17:09)
--- NOTE | 2018-09-09 19:04 | NUR ---
CASE MANAGEMENT: REVIEW SI: SBO . FECAL IMPACTION T 98.5 HR 89 RR 19 BP 171/80 SAT 96% ROOM AIR CHLOR 111 GLUCOSE 182 IS: LACTULOSE PO TID D5 NS IVF @100ML/HR COLACE GT BID GT FEEDING MED/SURG STATUS DCP: PATIENT IS FROM [facility]
--- NOTE | 2018-09-09 19:07 | NUR ---
HAND-OFF: Report given to ISMAEL RIVAS.
--- NOTE | 2018-09-09 19:15 | NUR ---
NURSE NOTES: Received pt from ISMAEL Carney. Pt is confused ax0-1. pt is on RA, Acute respiratory distress noted. pt has intact iv access LH 22G D5NS at 100 ml/h. Pt has G tube which feeding running at 60ml. Will recheck residual. Bed is locked and is in the lowest position, bed alarm on. call light within reach. will continue to monitor.
--- NOTE | 2018-09-09 19:44 | Consultation ---
History of Present Illness General Chief Complaint: General Complaint Referring physician: NATASHA REARDON Reason for Consultation: FECAL IMPACATION Present Illness Allergies: Coded Allergies: No Known Allergies (Verified , 06/07/08) Medication History Scheduled Amino Acids/Protein Hydrolys (Pro-Stat Liquid), 30 ML GT EVERY 8 HOURS, ( Reported) Atorvastatin Calcium* (Lipitor*), 10 MG GT BEDTIME, (Reported) Cholecalciferol (Vitamin D3)* (Vitamin D*), 1,000 UNITS GT TWICE A DAY, ( Reported) Docusate Sodium (Docusate Sodium), 100 MG GT BID, (Reported) Donepezil Hcl* (Donepezil Hcl*), 10 MG GT BEDTIME, (Reported) Insulin Glargine (Lantus), 5 UNITS SUBQ MORNING, (Reported) Losartan Potassium* (Losartan Potassium*), 100 MG GT DAILY, (Reported) Metformin Hcl* (Metformin Hcl*), 500 MG GT TWICE A DAY, (Reported) Metoprolol Tartrate* (Metoprolol Tartrate*), 50 MG GT EVERY 12 HOURS, (Reported) Sitagliptin* (Januvia*), 100 MG GT MORNING, (Reported) Scheduled PRN Acetaminophen* (Acetaminophen 325MG Tablet*), 650 MG GT Q6H PRN for For Pain, ( Reported) Hydralazine HCl (Hydralazine HCl), 25 MG GT Q6H PRN for For High Blood Pressure, (Reported) Insulin Aspart* (Novolog*), 0 SUBQ AC+HS PRN for Per rx protocol, (Reported) Discontinued Medications Ciprofloxacin (Cipro), 500 MG GT BID, (Reported) Discontinued Reason: Therapy completed Patient History Healthcare decision maker KATHERINE PANDA Resuscitation status Full Code Advanced Directive on File No Physical Exam Last 24 Hour Vital Signs Date Time Temp Pulse Resp B/P (MAP) Pulse Ox O2 Delivery O2 Flow Rate FiO2 09/09/18 17:09 171/80 09/09/18 16:00 98.6 99 18 171/80 (110) 96 09/09/18 12:00 98.5 89 19 118/87 (97) 96 09/09/18 09:22 110/82 09/09/18 09:00 Room Air 09/09/18 08:00 97.9 98 19 110/82 (91) 97 09/09/18 04:00 96.8 107 19 128/81 (97) 95 09/09/18 00:00 97.5 92 19 160/75 (103) 96 09/08/18 21:32 170/80 09/08/18 21:00 Room Air 09/08/18 20:00 98.4 98 19 170/80 (110) 98 Intake and Output 09/08/18 09/09/18 18:59 06:59 Intake Total 1580 ml 250 ml Balance 1580 ml 250 ml Intake Free Water 300 ml 150 ml IV Total 1000 ml 100 ml Tube Feeding 280 ml 0 ml # Voids 3 # Bowel Movements 3 Laboratory Tests Test 09/09/18 07:05 09/09/18 08:45 Sodium Level 141 MMOL/L (136-145) Potassium Level 3.7 MMOL/L (3.5-5.1) Chloride Level 111 MMOL/L (98-107) H Carbon Dioxide Level 21 MMOL/L (21-32) Anion Gap 9 mmol/L (5-15) Blood Urea Nitrogen 10 mg/dL (7-18) Creatinine 0.7 MG/DL (0.55-1.30) Estimat Glomerular Filtration Rate mL/min (>60) Glucose Level 182 MG/DL (74-106) H Calcium Level 10.1 MG/DL (8.5-10.1) Total Bilirubin 0.6 MG/DL (0.2-1.0) Aspartate Amino Transf (AST/SGOT) 42 U/L (15-37) H Alanine Aminotransferase (ALT/SGPT) 10 U/L (12-78) L Alkaline Phosphatase 347 U/L (46-116) H Total Protein 6.5 G/DL (6.4-8.2) Albumin 1.9 G/DL (3.4-5.0) L Globulin 4.6 g/dL Albumin/Globulin Ratio 0.4 (1.0-2.7) L White Blood Count 6.7 K/UL (4.8-10.8) Red Blood Count 4.21 M/UL (4.70-6.10) L Hemoglobin 12.7 G/DL (14.2-18.0) L Hematocrit 40.8 % (42.0-52.0) L Mean Corpuscular Volume 97 FL (80-99) Mean Corpuscular Hemoglobin 30.2 PG (27.0-31.0) Mean Corpuscular Hemoglobin Concent 31.2 G/DL (32.0-36.0) L Red Cell Distribution Width 14.0 % (11.6-14.8) Platelet Count 240 K/UL (150-450) Mean Platelet Volume 5.6 FL (6.5-10.1) L Neutrophils (%) (Auto) 71.3 % (45.0-75.0) Lymphocytes (%) (Auto) 18.0 % (20.0-45.0) L Monocytes (%) (Auto) 8.3 % (1.0-10.0) Eosinophils (%) (Auto) 1.8 % (0.0-3.0) Basophils (%) (Auto) 0.6 % (0.0-2.0) Iron Level 31 ug/dL (50-175) L Total Iron Binding Capacity 194 ug/dL (250-450) L Percent Iron Saturation 16 % (15-50) Unsaturated Iron Binding 163 ug/dL (112-346) Height (Feet): 5 Height (Inches): 8.00 Weight (Pounds): 160 Medications Current Medications Medications (Trade) Dose Ordered Sig/Reagan Route PRN Reason Start Time Stop Time Status Last Admin Dose Admin Acetaminophen (Tylenol) 650 mg Q4H PRN GT Mild Pain/Temp > 100.5 09/03/18 21:30 10/03/18 21:29 Atorvastatin Calcium (Lipitor) 10 mg BEDTIME GT 09/04/18 21:00 10/04/18 20:59 09/08/18 21:32 Dextrose (Dextrose 50%) 25 ml Q30M PRN IV Hypoglycemia 09/03/18 21:30 10/03/18 21:29 Dextrose (Dextrose 50%) 50 ml Q30M PRN IV Hypoglycemia 09/03/18 21:30 10/03/18 21:29 Dextrose/Sodium Chloride 1,000 ml @ 100 mls/hr Q10H IV 09/05/18 11:00 10/05/18 10:59 09/09/18 17:09 Docusate Sodium (Colace) 100 mg BID GT 09/04/18 09:00 10/04/18 08:59 09/09/18 17:09 Donepezil HCl (Aricept) 10 mg BEDTIME GT 09/04/18 21:00 10/04/18 20:59 09/08/18 21:31 Heparin Sodium (Porcine) (Heparin 5000 units/ml) 5,000 units EVERY 12 HOURS SUBQ 09/04/18 09:00 10/04/18 08:59 09/09/18 09:24 Hydralazine HCl (Apresoline) 25 mg Q6H PRN GT For High Blood Pressure 09/03/18 21:48 10/03/18 21:47 09/09/18 17:09 Insulin Aspart (NovoLOG) BEFORE MEALS AND HS SUBQ 09/04/18 06:30 10/04/18 06:29 09/09/18 17:18 Insulin Detemir (Levemir) 5 units DAILY SUBQ 09/04/18 09:00 10/04/18 08:59 09/09/18 09:24 Iopamidol (Isovue-300 100ml) 100 ml NOW PRN INJ Radiology Procedure 09/03/18 14:45 Lactulose (Cephulac) 10 gm THREE TIMES A DAY ORAL 09/08/18 13:00 10/08/18 12:59 09/09/18 17:09 Losartan Potassium (Cozaar) 100 mg DAILY GT 09/04/18 09:00 10/04/18 08:59 09/09/18 09:22 Magnesium Chloride (Slow-Mag) 2 tab DAILY ORAL 09/08/18 09:00 10/08/18 08:59 09/09/18 09:22 Mineral Oil (Mineral Oil) 30 ml DAILYPRN PRN ORAL Constipation 09/06/18 11:45 10/06/18 11:44 Polyethylene Glycol (Miralax) 17 gm BEDTIME ORAL 09/06/18 21:00 10/06/18 20:59 09/08/18 21:32 Sitagliptin Phosphate (Januvia) 100 mg DAILY GT 09/04/18 09:00 10/04/18 08:59 09/09/18 09:22 Vitamin D (Vitamin D) 1,000 intlu TWICE A DAY GT 09/04/18 09:00 10/04/18 08:59 09/09/18 17:09 Zinc Oxide (Desitin) 1 applic THREE TIMES A DAY TOPIC 09/08/18 13:00 10/08/18 10:29 09/09/18 17:19 Assessment/Plan Assessment/Plan: ONCOLOGY CONSULT Date patient seen: Sep 09, 2018 Reason for Hospitalization: General Complaint Referring physician: NATASHA REARDON Reason for Consultation: LIVER MASS HPI 77 old female sent in for abdominal distention. He is unable to give a history. There is no documentation that are present with him regarding this problem. He does have a gastrostomy tube. He also has a history of chronic pancreatitis. GI consulted for fecal impaction, currently having multople BMs. ROS limited, patient seen awake alert. Noted that patient has a distended abdomen. Abdominal pelvis CT was performed, noted with a large heterogeneous mass in the right lobe of the liver suspicious for malignant neoplasm. Fecal impaction with evidence of proctocolitis. Reported by RN patient had bowel movement yesterday. Labs reviewed; H&H 12 and 37.7, sodium 135, alkaline phosphatase of 467. Unknown history of endoscopic colonoscopy. Onco was consuilted as well. Past Medical history Patient was admitted in August with these discharge diagnoses: G-tube site cellulitis (with Pseudomonas Klebsiella and Streptococci) Chronic diastolic and systolic congestive heart failure Hypertensive heart disease sodium 135, alkaline phosphatase 467 Permanent pacemaker Paroxysmal atrial fibrillation Diabetes mellitus type 2 with complications, including nephropathy and neuropathy Cerebrovascular disease with dementia Falls with bleeding risk Anemia Home Meds Reported Medications Sitagliptin* (JANUVIA*) 25 Mg Tablet, 100 MG GT DAILY, TAB 09/03/18 Ciprofloxacin (CIPRO) 500 Mg/5 Ml Mirian.mc.rec, 500 MG GT BID for 7 Days 08/19/18 Amino Acids/Protein Hydrolys (PRO-STAT LIQUID) 30 Ml Liquid.pkt, 30 ML GT EVERY 8 HOURS, ML 07/02/18 Sitagliptin* (JANUVIA*) 25 Mg Tablet, 100 MG GT MORNING 07/02/18 Metformin Hcl* (METFORMIN HCL*) 500 Mg Tablet, 500 MG GT TWICE A DAY, TAB 07/01/18 Insulin Glargine (LANTUS) 100 Unit/1 Ml Insuln.pen, 5 UNITS SUBQ MORNING 07/01/18 Hydralazine HCl (Hydralazine HCl) 25 Mg Tablet, 25 MG GT Q6H PRN for For High Blood Pressure, TAB IF SBP >140 07/01/18 Docusate Sodium (DOCUSATE SODIUM) 50 Mg/5 Ml Liquid, 100 MG GT BID, ML 07/01/18 Acetaminophen* (ACETAMINOPHEN 325MG TABLET*) 325 Mg Tablet, 650 MG GT Q6H PRN for For Pain, TAB 07/01/18 Metoprolol Tartrate* (METOPROLOL TARTRATE*) 50 Mg Tablet, 50 MG GT EVERY 12 HOURS 02/10/17 Insulin Aspart* (NOVOLOG*) 100 Unit/1 Ml Insuln.pen, 0 SUBQ AC+HS PRN for Per rx protocol, #1 EA 0 Refills SLIDING SCALE 02/10/17 Cholecalciferol (Vitamin D3)* (VITAMIN D*) 1,000 Unit Tablet, 1000 UNITS GT TWICE A DAY 02/10/17 Atorvastatin Calcium* (LIPITOR*) 10 Mg Tablet, 10 MG GT BEDTIME, TAB 02/10/17 Losartan Potassium* (LOSARTAN POTASSIUM*) 50 Mg Tablet, 100 MG GT DAILY, TAB HOLD IF SBP<110 OR HR<60 07/20/14 Donepezil Hcl* (DONEPEZIL HCL*) 10 Mg Tab.rapdis, 10 MG GT BEDTIME for For Anxiety, TAB 07/20/14 Med list reviewed/reconciled: Yes Allergies: Coded Allergies: No Known Allergies (Verified , 06/07/08) History Provided By: Patient, Medical Record PMH Narrative Limited by: medical condition Past Medical History: see triage record, old chart reviewed Past Surgical History: pacemaker, other - Gastrostomy tube Social History Narrative SNF, full treatment Reviewed Nursing Documentation: PMH: Agreed; PSxH: Agreed Nursing Documentation-PMH Past Medical History: No History, Except For Hx Cardiac Problems: Yes - Atrial Fibrillation, Pacemaker Hx Hypertension: Yes Hx Pacemaker: Yes Hx Diabetes: Yes Hx Cancer: No Hx Gastrointestinal Problems: Yes - G-tube Hx Neurological Problems: Yes Hx Alzheimer's Disease: Yes Hx Dysphasia: Yes Social History: Denies: smoking, alcohol use, drug use, other Review of Systems: limited PE Ge: well appearing, no apparent distress, alert Head: normocephalic EENT: PERRL/EOMI, normal ENT inspection Neck: supple Respiratory: normal breath sounds, no respiratory distress Cardiovascular: normal rate Gastrointestinal: normal inspection, non tender, soft, normal bowel sounds, non -distended ++ gtube Rectal: deferred Genitourinary: deferred Musculoskeletal: normal inspection, back normal Neurologic: normal inspection, alert, oriented x3, responsive Psychiatric: normal inspection, judgement/insight normal, memory normal Skin: normal inspection, normal color, no rash, warm/dry, palpation normal, well hydrated Lymphatic: normal inspection, no adenopathy Current Medications Current Medications Medications (Trade) Dose Ordered Sig/Reagan Route PRN Reason Start Time Stop Time Status Last Admin Dose Admin Acetaminophen (Tylenol) 650 mg Q4H PRN GT Mild Pain/Temp > 100.5 09/03/18 21:30 10/03/18 21:29 Atorvastatin Calcium (Lipitor) 10 mg BEDTIME GT 09/04/18 21:00 10/04/18 20:59 09/05/18 21:33 Dextrose (Dextrose 50%) 25 ml Q30M PRN IV Hypoglycemia 09/03/18 21:30 10/03/18 21:29 Dextrose (Dextrose 50%) 50 ml Q30M PRN IV Hypoglycemia 09/03/18 21:30 10/03/18 21:29 Dextrose/Sodium Chloride 1,000 ml @ 100 mls/hr Q10H IV 09/05/18 11:00 10/05/18 10:59 09/06/18 06:08 Docusate Sodium (Colace) 100 mg BID GT 09/04/18 09:00 10/04/18 08:59 09/06/18 09:50 Donepezil HCl (Aricept) 10 mg BEDTIME GT 09/04/18 21:00 10/04/18 20:59 09/05/18 21:33 Heparin Sodium (Porcine) (Heparin 5000 units/ml) 5,000 units EVERY 12 HOURS SUBQ 09/04/18 09:00 10/04/18 08:59 09/06/18 09:41 Hydralazine HCl (Apresoline) 25 mg Q6H PRN GT For High Blood Pressure 09/03/18 21:48 10/03/18 21:47 Insulin Aspart (NovoLOG) BEFORE MEALS AND HS SUBQ 09/04/18 06:30 10/04/18 06:29 Insulin Detemir (Levemir) 5 units DAILY SUBQ 09/04/18 09:00 10/04/18 08:59 09/05/18 08:59 Iopamidol (Isovue-300 100ml) 100 ml NOW PRN INJ Radiology Procedure 09/03/18 14:45 Losartan Potassium (Cozaar) 100 mg DAILY GT 09/04/18 09:00 10/04/18 08:59 09/06/18 09:49 Sitagliptin Phosphate (Januvia) 100 mg DAILY GT 09/04/18 09:00 10/04/18 08:59 09/06/18 09:49 Vitamin D (Vitamin D) 1,000 intlu TWICE A DAY GT 09/04/18 09:00 10/04/18 08:59 09/06/18 09:50 Assessment and Recs # Liver mass- Large heterogeneous mass in the right lobe of the liver suspicious for malignant neoplasm. --> imaging has been reviewed and c/w likely malignancy --> tumor markers have been ordered cea, ca 19.9, afp --> may need outpatient biopsy if tumor markers not indicative --> as per Gi recs, may need biopsy # Anemia of chronic disease (or of iron deficiency) due to underlying chronic medical issues, multifactorial --> Anemia workup has been ordered, rule out gi bleed --> No evidence of hemolysis is noted, peripheral smear has been reviewed. --> Hgb goal >7. Transfuse prn. --> Epogen or iron at this time is not particularly indicated --> Medications have been reviewed # Hypercalcemia - on admission elev, due to likely dehydration --> Ca has improved, on ivf # Fecal impaction --> on colace, senna as per gi # Constipation # Abdominal distension The timing of this note does not necessarily reflect the time of the patient was seen. GREATLY APPRECIATE CONSULTATION. Fadi Vicente MD Sep 09, 2018 19:44
--- NOTE | 2018-09-09 20:30 | NUR ---
NURSE NOTES: Rapid response called, BP very elevated, RR increased - refer to TIMBER APPRAISER
[2018-09-09] MEDS: Donepezil 10mg tab GT SCH (20:58)
[2018-09-09] MEDS: Miralax 17gm pkt ORAL SCH (20:58)
[2018-09-09] MEDS ORDERED: NovoLOG Insulin Flexpen SUBQ SCH (21:20)
[2018-09-09] MEDS ORDERED: HydrALAZINE 25mg tab GT PRN (21:20)
[2018-09-09] MEDS ORDERED: Mineral Oil 30ml ud GT PRN (21:21)
--- NOTE | 2018-09-09 21:28 | NUR ---
HAND-OFF: Report given to ISMAEL Lopez transferred to JV bed 236.
--- NOTE | 2018-09-09 21:29 | NUR ---
NURSE NOTES: Received a transfer after [facility] as per order for new onset of A-Fib, received report from ISMAEL Baldwin.Patient stable,no s/s of respiratory distress noted,tolerated r/air well ,GT on held d/t residual 200 ml MD aware,low intermitted suction connected to GT,belongings list signed,lower and upper dentures on bedside,bed secured in a low safety position,call light within a reach.Will continue to monitor and follow POC.
[2018-09-09 21:30] VITALS: BP 140/74
--- NOTE | 2018-09-09 21:41 | NUR ---
NURSE NOTES: informed about ABG result,received an order 2amps bicarbonate IVP,charge nurse aware.
[2018-09-09] MEDS ORDERED: Sodium Bicarbonate 50ml Carp IV SCH (22:15)
[2018-09-09] MEDS ORDERED: Albuterol ud Inhalation HHN SCH (23:00)
--- NOTE | 2018-09-09 23:00 | NUR ---
NURSE NOTES: Notified daughter in am of her father's location in [id number]
[2018-09-09] MEDS: Albuterol ud Inhalation HHN SCH (23:20)
[2018-09-10] VITALS: BP 142/70
[2018-09-10] MEDS: Albuterol ud Inhalation HHN SCH ×6 (03:07→23:01)
[2018-09-10 04:00] VITALS: BP 132/68
[2018-09-10 05:56] LABS: BASOPHILS % (AUTO) 0.4 % (0.0-2.0); EOSINOPHILS % (AUTO) 0.3 % (0.0-3.0); HEMATOCRIT 42.5 % (42.0-52.0); HEMOGLOBIN 13.5 G/DL (14.2-18.0); LYMPHOCYTES % (AUTO) 18.6 % (20.0-45.0); MEAN CORPUSCULAR VOLUME 96 FL (80-99); NEUTROPHILS % (AUTO) 72.7 % (45.0-75.0); PLATELET COUNT 264 K/UL (150-450); RED BLOOD COUNT 4.42 M/UL (4.70-6.10); RED CELL DISTRIBUTION WIDTH 14.2 % (11.6-14.8); WHITE BLOOD COUNT 9.6 K/UL (4.8-10.8)
[2018-09-10] MEDS ORDERED: NovoLOG Insulin Flexpen SUBQ SCH (06:30)
[2018-09-10 06:31] LABS: ANION GAP 9 mmol/L (5-15); BLOOD UREA NITROGEN 12 mg/dL (7-18); CALCIUM 10.6 MG/DL (8.5-10.1); CARBON DIOXIDE 26 MMOL/L (21-32); CHLORIDE 115 MMOL/L (98-107); CREATININE 0.7 MG/DL (0.55-1.30); POTASSIUM 3.5 MMOL/L (3.5-5.1); SODIUM 150 MMOL/L (136-145)
--- NOTE | 2018-09-10 07:16 | NUR ---
HAND-OFF: Report given to ISMAEL Palacio.Patient stable.
--- NOTE | 2018-09-10 07:17 | NUR ---
NURSE NOTES: Received patient in bed. On room air, no respiratory distress. With ongoing IVF. GT connected to low intermittent suction. Contact isolation observed. Will continue plan of care.
[2018-09-10 08:00] VITALS: BP 152/90
[2018-09-10] MEDS: D5NS 1,000 ML IV SCH (08:00)
--- NOTE | 2018-09-10 08:34 | Hematology/Onc Progress Note ---
Assessment/Plan Assessment/Plan Assessment and Recs # Liver mass - large heterogeneous mass in the right lobe of the liver suspicious for malignant neoplasm --> imaging has been reviewed and c/w likely malignancy --> tumor markers have been ordered cea, ca 19.9, afp --> may need outpatient biopsy if tumor markers not indicative --> as per Gi recs, may need biopsy # Anemia of chronic disease due to underlying chronic medical issues, multifactorial --> Anemia workup has been ordered, rule out gi bleed, ferritin is 118 --> No evidence of hemolysis is noted, peripheral smear has been reviewed. --> Hgb goal >7. Transfuse prn. --> Epogen or iron at this time is not particularly indicated --> Medications have been reviewed # Hypercalcemia - on admission elev, due to likely dehydration --> Ca has improved, on ivf --> CONSIDER IVF also for hypernatremia # Fecal impaction --> on colace, senna as per gi # Constipation # Abdominal distension The timing of this note does not necessarily reflect the time of the patient was seen. GREATLY APPRECIATE CONSULTATION. Subjective Constitutional: Denies: no symptoms, chills, fever, malaise, weakness, other HEENT: Denies: no symptoms, eye pain, blurred vision, tearing, double vision, ear pain, ear discharge, nose pain, nose congestion, throat pain, throat swelling, mouth pain, mouth swelling, other Respiratory: Denies: no symptoms, cough, shortness of breath, SOB with excertion, SOB at rest, sputum, wheezing, other Gastrointestinal/Abdominal: Denies: no symptoms, abdomen distended, abdominal pain, black stools, tarry stools, blood in stool, constipated, diarrhea, difficulty swallowing, nausea, poor appetite, poor fluid intake, rectal bleeding , vomiting, other Genitourinary: Denies: no symptoms, burning, discharge, frequency, flank pain, hematuria, incontinence, pain, urgency, other Neurologic/Psychiatric: Denies: no symptoms, anxiety, depressed, emotional problems, headache, numbness, paresthesia, pre-existing deficit, seizure, tingling, tremors, weakness, other Endocrine: Denies: no symptoms, excessive sweating, flushing, intolerance to cold, intolerance to heat, increased hunger, increased thirst, increased urine, unexplained weight gain, unexplained weight loss, other Allergies: Coded Allergies: No Known Allergies (Verified , 06/07/08) Subjective 09/10: no bleeding, no night sweats, no events otherwise, labs pending Objective Objective Current Medications Medications (Trade) Dose Ordered Sig/Reagan Route PRN Reason Start Time Stop Time Status Last Admin Dose Admin Acetaminophen (Tylenol) 650 mg Q4H PRN GT Mild Pain/Temp > 100.5 09/09/18 21:19 10/09/18 21:18 Albuterol Sulfate (Proventil) 2.5 mg Q4HRT HHN 09/09/18 23:00 09/14/18 22:59 09/10/18 06:58 Atorvastatin Calcium (Lipitor) 10 mg BEDTIME GT 09/10/18 21:00 10/04/18 20:59 Dextrose (Dextrose 50%) 25 ml Q30M PRN IV Hypoglycemia 09/09/18 21:30 10/03/18 21:29 Dextrose (Dextrose 50%) 50 ml Q30M PRN IV Hypoglycemia 09/09/18 21:30 10/03/18 21:29 Dextrose/Sodium Chloride 1,000 ml @ 100 mls/hr Q10H IV 09/09/18 21:19 10/09/18 21:18 09/10/18 08:00 Docusate Sodium (Colace) 100 mg BID GT 09/10/18 09:00 10/04/18 08:59 Donepezil HCl (Aricept) 10 mg BEDTIME GT 09/10/18 21:00 10/04/18 20:59 Heparin Sodium (Porcine) (Heparin 5000 units/ml) 5,000 units EVERY 12 HOURS SUBQ 09/10/18 09:00 10/04/18 08:59 Hydralazine HCl (Apresoline) 25 mg Q6H PRN GT For High Blood Pressure 09/09/18 21:20 10/09/18 21:19 Insulin Aspart (NovoLOG) BEFORE MEALS AND HS SUBQ 09/10/18 06:30 10/10/18 06:29 Insulin Detemir (Levemir) 5 units DAILY SUBQ 09/10/18 09:00 10/04/18 08:59 Lactulose (Cephulac) 10 gm THREE TIMES A DAY GT 09/10/18 09:00 10/08/18 12:59 Losartan Potassium (Cozaar) 100 mg DAILY GT 09/10/18 09:00 10/04/18 08:59 Mineral Oil (Mineral Oil) 30 ml DAILYPRN PRN GT Constipation 09/09/18 21:21 10/09/18 21:20 Polyethylene Glycol (Miralax) 17 gm BEDTIME GT 09/10/18 21:00 10/06/18 20:59 Sitagliptin Phosphate (Januvia) 100 mg DAILY GT 09/10/18 09:00 10/04/18 08:59 Vitamin D (Vitamin D) 1,000 intlu TWICE A DAY GT 09/10/18 09:00 10/04/18 08:59 Zinc Oxide (Desitin) 1 applic THREE TIMES A DAY TOPIC 09/10/18 09:00 10/08/18 10:29 Last 24 Hour Vital Signs Date Time Temp Pulse Resp B/P (MAP) Pulse Ox O2 Delivery O2 Flow Rate FiO2 09/10/18 08:00 98.1 92 22 152/90 (110) 98 09/10/18 07:04 63 20 100 Room Air 09/10/18 06:59 62 18 96 Room Air 09/10/18 04:00 84 09/10/18 04:00 98.3 97 20 132/68 (89) 98 09/10/18 03:19 90 22 98 Room Air 09/10/18 03:07 80 18 97 Room Air 09/10/18 00:00 97.9 98 24 142/70 (94) 98 09/09/18 23:47 117 09/09/18 23:30 116 22 96 Room Air 09/09/18 23:20 108 20 95 Room Air 21 09/09/18 23:20 108 20 95 Room Air 21 09/09/18 22:37 119 09/09/18 21:30 97.7 104 22 140/74 (96) 96 09/09/18 21:00 Room Air 09/09/18 17:09 171/80 09/09/18 16:00 98.6 99 18 171/80 (110) 96 09/09/18 12:00 98.5 89 19 118/87 (97) 96 09/09/18 09:22 110/82 09/09/18 09:00 Room Air 09/09/18 08:00 97.9 98 19 110/82 (91) 97 09/09/18 04:00 96.8 107 19 128/81 (97) 95 09/09/18 00:00 97.5 92 19 160/75 (103) 96 09/08/18 21:32 170/80 09/08/18 21:00 Room Air 09/08/18 20:00 98.4 98 19 170/80 (110) 98 09/08/18 16:00 98.0 94 17 157/66 (96) 98 09/08/18 12:00 98.6 82 18 125/79 (94) 98 09/08/18 10:05 129/86 09/08/18 09:00 Room Air Intake and Output 09/09/18 09/10/18 19:00 07:00 Intake Total 2100 ml 1000 ml Output Total 350 ml Balance 2100 ml 650 ml Intake Free Water 300 ml 200 ml IV Total 1200 ml 800 ml Tube Feeding 600 ml Output Urine Total 350 ml # Voids 5 # Bowel Movements 1 1 Labs Test 09/09/18 07:05 09/09/18 08:45 09/09/18 20:41 09/10/18 03:50 Sodium Level 141 MMOL/L (136-145) 150 MMOL/L (136-145) Potassium Level 3.7 MMOL/L (3.5-5.1) 3.5 MMOL/L (3.5-5.1) Chloride Level 111 MMOL/L (98-107) 115 MMOL/L (98-107) Carbon Dioxide Level 21 MMOL/L (21-32) 26 MMOL/L (21-32) Anion Gap 9 mmol/L (5-15) 9 mmol/L (5-15) Blood Urea Nitrogen 10 mg/dL (7-18) 12 mg/dL (7-18) Creatinine 0.7 MG/DL (0.55-1.30) 0.7 MG/DL (0.55-1.30) Estimat Glomerular Filtration Rate mL/min (>60) mL/min (>60) Glucose Level 182 MG/DL (74-106) 165 MG/DL (74-106) Calcium Level 10.1 MG/DL (8.5-10.1) 10.6 MG/DL (8.5-10.1) Total Bilirubin 0.6 MG/DL (0.2-1.0) Aspartate Amino Transf (AST/SGOT) 42 U/L (15-37) Alanine Aminotransferase (ALT/SGPT) 10 U/L (12-78) Alkaline Phosphatase 347 U/L (46-116) Total Protein 6.5 G/DL (6.4-8.2) Albumin 1.9 G/DL (3.4-5.0) Globulin 4.6 g/dL Albumin/Globulin Ratio 0.4 (1.0-2.7) White Blood Count 6.7 K/UL (4.8-10.8) 9.6 K/UL (4.8-10.8) Red Blood Count 4.21 M/UL (4.70-6.10) 4.42 M/UL (4.70-6.10) Hemoglobin 12.7 G/DL (14.2-18.0) 13.5 G/DL (14.2-18.0) Hematocrit 40.8 % (42.0-52.0) 42.5 % (42.0-52.0) Mean Corpuscular Volume 97 FL (80-99) 96 FL (80-99) Mean Corpuscular Hemoglobin 30.2 PG (27.0-31.0) 30.6 PG (27.0-31.0) Mean Corpuscular Hemoglobin Concent 31.2 G/DL (32.0-36.0) 31.8 G/DL (32.0-36.0) Red Cell Distribution Width 14.0 % (11.6-14.8) 14.2 % (11.6-14.8) Platelet Count 240 K/UL (150-450) 264 K/UL (150-450) Mean Platelet Volume 5.6 FL (6.5-10.1) 5.7 FL (6.5-10.1) Neutrophils (%) (Auto) 71.3 % (45.0-75.0) 72.7 % (45.0-75.0) Lymphocytes (%) (Auto) 18.0 % (20.0-45.0) 18.6 % (20.0-45.0) Monocytes (%) (Auto) 8.3 % (1.0-10.0) 8.0 % (1.0-10.0) Eosinophils (%) (Auto) 1.8 % (0.0-3.0) 0.3 % (0.0-3.0) Basophils (%) (Auto) 0.6 % (0.0-2.0) 0.4 % (0.0-2.0) Iron Level 31 ug/dL (50-175) Total Iron Binding Capacity 194 ug/dL (250-450) Percent Iron Saturation 16 % (15-50) Unsaturated Iron Binding 163 ug/dL (112-346) Ferritin 118 NG/ML (8-388) Arterial Blood pH 7.323 (7.350-7.450) Arterial Blood Partial Pressure CO2 43.2 mmHg (35.0-45.0) Arterial Blood Partial Pressure O2 76.0 mmHg (75.0-100.0) Arterial Blood HCO3 21.9 mmol/L (22.0-26.0) Arterial Blood Oxygen Saturation 94.9 % (95-100) Arterial Blood Base Excess -4 (-2-2) Juan Alberto Test Positive Height (Feet): 5 Height (Inches): 8.00 Weight (Pounds): 160 Objective Gen: well appearing, no apparent distress, alert Head: normocephalic EENT: PERRL/EOMI, normal ENT inspection Neck: supple Respiratory: normal breath sounds, no respiratory distress Cardiovascular: normal rate GI: normal inspection, non tender, soft, normal bowel sounds, non-distended ++ gtube Rectal: deferred Gu: deferred Musculoskeletal: normal inspection, back normal Neurologic: normal inspection, alert, oriented x3, responsive Psychiatric: normal inspection, judgement/insight normal, memory normal Skin: normal inspection, normal color, no rash, warm/dry, palpation normal, well hydrated Lymphatic: normal inspection, no adenopathy Fadi Vicente MD Sep 10, 2018 08:34
--- NOTE | 2018-09-10 08:42 | General Progress Note ---
Assessment/Plan Problem List: (1) Atrial fibrillation and flutter ICD Codes: I48.91 - Unspecified atrial fibrillation; I48.92 - Unspecified atrial flutter SNOMED: 439665337 (2) CHF (congestive heart failure) ICD Codes: I50.9 - Heart failure, unspecified SNOMED: 20472732 (3) Pancreatitis ICD Codes: K85.90 - Acute pancreatitis without necrosis or infection, unspecified SNOMED: 02184369 (4) CVA (cerebral vascular accident) ICD Codes: I63.9 - CVA (cerebral vascular accident) SNOMED: 453904345 (5) Abdominal distension ICD Codes: R14.0 - Abdominal distension (gaseous) SNOMED: 48248539 (6) Umbilical hernia ICD Codes: K42.9 - Umbilical hernia without obstruction or gangrene SNOMED: 491277245 Qualifiers: Qualified Codes: K42.9 - Umbilical hernia without obstruction or gangrene Status: stable Assessment/Plan: liver mass abdominal distention episodic hypertension and tachycardia abdominal distention PLAN GI follow up - now to suction general surgery reviewed monitor for change and recommend monitor cxr liver masses previously - family did not want any intervention onc evaluation called- plans for biopsy finalize gi recommendations and needs further stabilization impression, plan, and exam edited and reviewed in detail care discussed with RN Subjective ROS Limited/Unobtainable: Yes Allergies: Coded Allergies: No Known Allergies (Verified , 06/07/08) Subjective had UX INFORMATION ARCHITECT increase heart rate- now better GT placed to suction care noted and reviewed Objective Last 24 Hour Vital Signs Date Time Temp Pulse Resp B/P (MAP) Pulse Ox O2 Delivery O2 Flow Rate FiO2 09/10/18 08:00 98.1 92 22 152/90 (110) 98 09/10/18 07:04 63 20 100 Room Air 09/10/18 06:59 62 18 96 Room Air 09/10/18 04:00 84 09/10/18 04:00 98.3 97 20 132/68 (89) 98 09/10/18 03:19 90 22 98 Room Air 09/10/18 03:07 80 18 97 Room Air 09/10/18 00:00 97.9 98 24 142/70 (94) 98 09/09/18 23:47 117 09/09/18 23:30 116 22 96 Room Air 09/09/18 23:20 108 20 95 Room Air 21 09/09/18 23:20 108 20 95 Room Air 21 09/09/18 22:37 119 09/09/18 21:30 97.7 104 22 140/74 (96) 96 09/09/18 21:00 Room Air 09/09/18 17:09 171/80 09/09/18 16:00 98.6 99 18 171/80 (110) 96 09/09/18 12:00 98.5 89 19 118/87 (97) 96 09/09/18 09:22 110/82 09/09/18 09:00 Room Air Intake and Output 09/09/18 09/10/18 19:00 07:00 Intake Total 2100 ml 1000 ml Output Total 350 ml Balance 2100 ml 650 ml Intake Free Water 300 ml 200 ml IV Total 1200 ml 800 ml Tube Feeding 600 ml Output Urine Total 350 ml # Voids 5 # Bowel Movements 1 1 Laboratory Tests 09/09/18 08:45: White Blood Count 6.7, Red Blood Count 4.21L, Hemoglobin 12.7L, Hematocrit 40.8L , Mean Corpuscular Volume 97, Mean Corpuscular Hemoglobin 30.2, Mean Corpuscular Hemoglobin Concent 31.2L, Red Cell Distribution Width 14.0, Platelet Count 240, Mean Platelet Volume 5.6L, Neutrophils (%) (Auto) 71.3, Lymphocytes (%) (Auto) 18.0L, Monocytes (%) (Auto) 8.3, Eosinophils (%) (Auto) 1.8, Basophils (%) (Auto) 0.6, Iron Level 31L, Total Iron Binding Capacity 194L , Percent Iron Saturation 16, Unsaturated Iron Binding 163, Ferritin 118 09/09/18 20:41: Arterial Blood pH 7.323L, Arterial Blood Partial Pressure CO2 43.2, Arterial Blood Partial Pressure O2 76.0, Arterial Blood HCO3 21.9L, Arterial Blood Oxygen Saturation 94.9L, Arterial Blood Base Excess -4L, Juan Alberto Test Positive 09/10/18 03:50: White Blood Count 9.6, Red Blood Count 4.42L, Hemoglobin 13.5L, Hematocrit 42.5 , Mean Corpuscular Volume 96, Mean Corpuscular Hemoglobin 30.6, Mean Corpuscular Hemoglobin Concent 31.8L, Red Cell Distribution Width 14.2, Platelet Count 264, Mean Platelet Volume 5.7L, Neutrophils (%) (Auto) 72.7, Lymphocytes (%) (Auto) 18.6L, Monocytes (%) (Auto) 8.0, Eosinophils (%) (Auto) 0.3, Basophils (%) (Auto) 0.4, Sodium Level 150H, Potassium Level 3.5, Chloride Level 115H, Carbon Dioxide Level 26, Anion Gap 9, Blood Urea Nitrogen 12, Creatinine 0.7, Estimat Glomerular Filtration Rate , Glucose Level 165H, Calcium Level 10.6H, CA 19-9 Antigen [Pending] Height (Feet): 5 Height (Inches): 8.00 Weight (Pounds): 160 Objective WDWN NAD reduced breath sounds bilaterally without rhonchi or wheeze [id number] without MRG NABS noted mild distention;Gt in place no CCE nonfocal skin exam noted confused, very reviewed and examined Dustin Mary MD Sep 10, 2018 08:42
--- NOTE | 2018-09-10 08:47 | General Progress Note ---
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 SNOMED: 607368464, 648439693, 804317340 (2) Anemia ICD Codes: D64.9 - Anemia, unspecified SNOMED: 832886709 (3) Liver mass ICD Codes: R16.0 - Hepatomegaly, not elsewhere classified SNOMED: 358238407 (4) Fecal impaction ICD Codes: K56.41 - Fecal impaction SNOMED: 44829939 (5) CVA (cerebral vascular accident) ICD Codes: I63.9 - CVA (cerebral vascular accident) SNOMED: 145611987 (6) CHF (congestive heart failure) ICD Codes: I50.9 - Heart failure, unspecified SNOMED: 70018186 (7) Atrial fibrillation and flutter ICD Codes: I48.91 - Unspecified atrial fibrillation; I48.92 - Unspecified atrial flutter SNOMED: 789968383 (8) Constipation ICD Codes: K59.00 - Constipation, unspecified SNOMED: 83305208 Qualifiers: Qualified Codes: K59.00 - Constipation, unspecified (9) Abdominal distension ICD Codes: R14.0 - Abdominal distension (gaseous) SNOMED: 78666941 Status: stable Assessment/Plan: GT was changed this admission Continue G-tube feedings Reglan as needed for motility Monitor H&H, PRN transfusions Turn patient every 2 hours tumor markers bowel regimen liver biopsy>> canceled Subjective ROS Limited/Unobtainable: No Allergies: Coded Allergies: No Known Allergies (Verified , 06/07/08) Objective Last 24 Hour Vital Signs Date Time Temp Pulse Resp B/P (MAP) Pulse Ox O2 Delivery O2 Flow Rate FiO2 09/10/18 08:00 98.1 92 22 152/90 (110) 98 09/10/18 07:04 63 20 100 Room Air 09/10/18 06:59 62 18 96 Room Air 09/10/18 04:00 84 09/10/18 04:00 98.3 97 20 132/68 (89) 98 09/10/18 03:19 90 22 98 Room Air 21 09/10/18 03:07 80 18 97 Room Air 09/10/18 00:00 97.9 98 24 142/70 (94) 98 09/09/18 23:47 117 7/8/19 23:30 116 22 96 Room Air 21 09/09/18 23:20 108 20 95 Room Air 21 09/09/18 23:20 108 20 95 Room Air 21 09/09/18 22:37 119 09/09/18 21:30 97.7 104 22 140/74 (96) 96 09/09/18 21:00 Room Air 09/09/18 17:09 171/80 09/09/18 16:00 98.6 99 18 171/80 (110) 96 09/09/18 12:00 98.5 89 19 118/87 (97) 96 09/09/18 09:22 110/82 09/09/18 09:00 Room Air Intake and Output 09/09/18 09/10/18 19:00 07:00 Intake Total 2100 ml 1000 ml Output Total 350 ml Balance 2100 ml 650 ml Intake Free Water 300 ml 200 ml IV Total 1200 ml 800 ml Tube Feeding 600 ml Output Urine Total 350 ml # Voids 5 # Bowel Movements 1 1 Laboratory Tests 09/09/18 20:41: Arterial Blood pH 7.323L, Arterial Blood Partial Pressure CO2 43.2, Arterial Blood Partial Pressure O2 76.0, Arterial Blood HCO3 21.9L, Arterial Blood Oxygen Saturation 94.9L, Arterial Blood Base Excess -4L, Juan Alberto Test Positive 09/10/18 03:50: White Blood Count 9.6, Red Blood Count 4.42L, Hemoglobin 13.5L, Hematocrit 42.5 , Mean Corpuscular Volume 96, Mean Corpuscular Hemoglobin 30.6, Mean Corpuscular Hemoglobin Concent 31.8L, Red Cell Distribution Width 14.2, Platelet Count 264, Mean Platelet Volume 5.7L, Neutrophils (%) (Auto) 72.7, Lymphocytes (%) (Auto) 18.6L, Monocytes (%) (Auto) 8.0, Eosinophils (%) (Auto) 0.3, Basophils (%) (Auto) 0.4, Sodium Level 150H, Potassium Level 3.5, Chloride Level 115H, Carbon Dioxide Level 26, Anion Gap 9, Blood Urea Nitrogen 12, Creatinine 0.7, Estimat Glomerular Filtration Rate , Glucose Level 165H, Calcium Level 10.6H, CA 19-9 Antigen [Pending] Height (Feet): 5 Height (Inches): 8.00 Weight (Pounds): 160 General Appearance: no apparent distress EENT: normal ENT inspection Neck: supple Cardiovascular: normal rate Respiratory/Chest: decreased breath sounds Abdomen: normal bowel sounds, non tender, soft Extremities: non-tender Demetris Gonzales MD Sep 10, 2018 08:47
[2018-09-10] MEDS ORDERED: Metoclopramide 10mg/2ml Inj IVP PRN (09:00)
[2018-09-10] MEDS ORDERED: Magnesium Chloride w/Calcium Tab ORAL SCH (09:00)
[2018-09-10] MEDS: Levemir Flexpen SUBQ SCH (09:00)
[2018-09-10] MEDS ORDERED: Desitin Rash Paste TOPIC SCH (09:00)
[2018-09-10] MEDS: Heparin 5000 units/ml inj SUBQ SCH ×2 (09:00→20:52)
--- NOTE | 2018-09-10 09:02 | General Progress Note ---
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 SNOMED: 237790853, 562385901, 998762777 (2) Anemia ICD Codes: D64.9 - Anemia, unspecified SNOMED: 035765058 (3) Liver mass ICD Codes: R16.0 - Hepatomegaly, not elsewhere classified SNOMED: 026335514 (4) Fecal impaction ICD Codes: K56.41 - Fecal impaction SNOMED: 22215009 (5) CVA (cerebral vascular accident) ICD Codes: I63.9 - CVA (cerebral vascular accident) SNOMED: 442088499 (6) CHF (congestive heart failure) ICD Codes: I50.9 - Heart failure, unspecified SNOMED: 32349720 (7) Atrial fibrillation and flutter ICD Codes: I48.91 - Unspecified atrial fibrillation; I48.92 - Unspecified atrial flutter SNOMED: 467124337 (8) Constipation ICD Codes: K59.00 - Constipation, unspecified SNOMED: 54273906 Qualifiers: Qualified Codes: K59.00 - Constipation, unspecified (9) Abdominal distension ICD Codes: R14.0 - Abdominal distension (gaseous) SNOMED: 20626749 Status: stable Assessment/Plan: GT was changed this admission npo Reglan 5 mg iv Monitor H&H, PRN transfusions Turn patient every 2 hours tumor markers bowel regimen liver biopsy>> canceled Subjective ROS Limited/Unobtainable: No Allergies: Coded Allergies: No Known Allergies (Verified , 06/07/08) Subjective had rapid response yesterday ? aspirated elevated GT residuals Objective Last 24 Hour Vital Signs Date Time Temp Pulse Resp B/P (MAP) Pulse Ox O2 Delivery O2 Flow Rate FiO2 09/10/18 08:00 98.1 92 22 152/90 (110) 98 09/10/18 07:04 63 20 100 Room Air 21 09/10/18 06:59 62 18 96 Room Air 21 09/10/18 04:00 84 09/10/18 04:00 98.3 97 20 132/68 (89) 98 09/10/18 03:19 90 22 98 Room Air 21 09/10/18 03:07 80 18 97 Room Air 21 09/10/18 00:00 97.9 98 24 142/70 (94) 98 7/8/19 23:47 117 09/09/18 23:30 116 22 96 Room Air 21 09/09/18 23:20 108 20 95 Room Air 21 09/09/18 23:20 108 20 95 Room Air 21 09/09/18 22:37 119 09/09/18 21:30 97.7 104 22 140/74 (96) 96 09/09/18 21:00 Room Air 09/09/18 17:09 171/80 09/09/18 16:00 98.6 99 18 171/80 (110) 96 09/09/18 12:00 98.5 89 19 118/87 (97) 96 09/09/18 09:22 110/82 Intake and Output 09/09/18 09/10/18 19:00 07:00 Intake Total 2100 ml 1000 ml Output Total 350 ml Balance 2100 ml 650 ml Intake Free Water 300 ml 200 ml IV Total 1200 ml 800 ml Tube Feeding 600 ml Output Urine Total 350 ml # Voids 5 # Bowel Movements 1 1 Laboratory Tests 09/09/18 20:41: Arterial Blood pH 7.323L, Arterial Blood Partial Pressure CO2 43.2, Arterial Blood Partial Pressure O2 76.0, Arterial Blood HCO3 21.9L, Arterial Blood Oxygen Saturation 94.9L, Arterial Blood Base Excess -4L, Juan Alberto Test Positive 09/10/18 03:50: White Blood Count 9.6, Red Blood Count 4.42L, Hemoglobin 13.5L, Hematocrit 42.5 , Mean Corpuscular Volume 96, Mean Corpuscular Hemoglobin 30.6, Mean Corpuscular Hemoglobin Concent 31.8L, Red Cell Distribution Width 14.2, Platelet Count 264, Mean Platelet Volume 5.7L, Neutrophils (%) (Auto) 72.7, Lymphocytes (%) (Auto) 18.6L, Monocytes (%) (Auto) 8.0, Eosinophils (%) (Auto) 0.3, Basophils (%) (Auto) 0.4, Sodium Level 150H, Potassium Level 3.5, Chloride Level 115H, Carbon Dioxide Level 26, Anion Gap 9, Blood Urea Nitrogen 12, Creatinine 0.7, Estimat Glomerular Filtration Rate , Glucose Level 165H, Calcium Level 10.6H, CA 19-9 Antigen [Pending] Height (Feet): 5 Height (Inches): 8.00 Weight (Pounds): 160 General Appearance: lethargic EENT: normal ENT inspection Neck: supple Cardiovascular: normal rate Respiratory/Chest: decreased breath sounds Abdomen: normal bowel sounds, non tender, soft Extremities: non-tender Demetris Gonzales MD Sep 10, 2018 09:02
--- NOTE | 2018-09-10 09:34 | Diagnostic Imaging Report ---
Indication: Shortness of breath Technique: One view of the chest Comparison: 09/03/2018 Findings: Left chest unifocal pacemaker is again demonstrated. Slight haziness of both lung bases probably reflects overlying soft tissue, but it could indicate some atelectasis or pleural fluid. The heart is upper limits normal in size. Findings are overall unchanged. Impression: Unchanged, over 6 days, findings as above.
[2018-09-10] MEDS: Losartan 50mg tab GT SCH (09:42)
[2018-09-10] MEDS: Docusate 100mg/10ml Liq GT SCH ×2 (09:42→17:42)
[2018-09-10] MEDS: Lactulose 10gm/15ml UDC GT SCH ×3 (09:42→17:42)
[2018-09-10] MEDS: Vitamin D 1000 IU Tab GT SCH ×2 (09:42→17:42)
[2018-09-10] MEDS: D5 1/2NS 1,000 ML IV SCH ×2 (09:43→19:31)
[2018-09-10 11:57] VITALS: BP 149/85
[2018-09-10] MEDS: NovoLOG Insulin Flexpen SUBQ SCH ×3 (13:24→23:40)
[2018-09-10] MEDS: Desitin Rash Paste TOPIC SCH ×2 (15:07→21:58)
[2018-09-10 16:00] VITALS: BP 142/81
--- NOTE | 2018-09-10 19:30 | NUR ---
HAND-OFF: Report given to ISMAEL OGDEN.
--- NOTE | 2018-09-10 19:31 | NUR ---
NURSE NOTES: Report received from ISMAEL Palacio. Observed pt lying on the bed, open eyes, but non-verbal. SR with synthetic gem press operator. Room air with no signs of SOB. GT site, redness around stoma noted. Condom catheter intact and draining well. IV on L FA 22G, running D5 1/2 NS at 100cc/hr. Bed in the lowest position. Side rails up x3. Call light within reach. Will continue to monitor.
[2018-09-10 20:00] VITALS: BP 158/96
[2018-09-10] MEDS: Miralax 17gm pkt GT SCH (20:51)
[2018-09-10] MEDS: Donepezil 10mg tab GT SCH (20:51)
[2018-09-11] VITALS: BP 159/70
[2018-09-11] MEDS: Albuterol ud Inhalation HHN SCH ×6 (03:07→22:50)
[2018-09-11 04:00] VITALS: BP 157/70
[2018-09-11] MEDS: D5 1/2NS 1,000 ML IV SCH ×2 (04:57→15:36)
[2018-09-11] MEDS: NovoLOG Insulin Flexpen SUBQ SCH ×4 (06:15→23:42)
[2018-09-11] MEDS: Desitin Rash Paste TOPIC SCH ×3 (06:16→20:24)
--- NOTE | 2018-09-11 07:21 | NUR ---
HAND-OFF: Report given to ISMAEL Mcdonald. No acute distress noted at this time.
--- NOTE | 2018-09-11 07:30 | NUR ---
NURSE NOTES: Received bedside report from Mark RN. Pt. in bed, asleep but arousable. No sign of distress. On R.A. No grimacing noted. IV site at left FA #22g. in placed patent/intact running D5 1/2 NS at 100cc/hr. Bed in low position, locked. Call light within reach. Will cont. to monitor.
[2018-09-11 08:00] VITALS: BP 148/80
[2018-09-11] MEDS: Docusate 100mg/10ml Liq GT SCH ×2 (09:04→17:33)
[2018-09-11] MEDS: Lactulose 10gm/15ml UDC GT SCH ×3 (09:04→17:33)
[2018-09-11] MEDS: Vitamin D 1000 IU Tab GT SCH ×2 (09:05→17:33)
[2018-09-11] MEDS: Heparin 5000 units/ml inj SUBQ SCH ×2 (09:05→20:25)
[2018-09-11] MEDS: Losartan 50mg tab GT SCH (09:07)
[2018-09-11] MEDS: Levemir Flexpen SUBQ SCH (09:08)
--- NOTE | 2018-09-11 09:46 | General Progress Note ---
Assessment/Plan Problem List: (1) Atrial fibrillation and flutter ICD Codes: I48.91 - Unspecified atrial fibrillation; I48.92 - Unspecified atrial flutter SNOMED: 641949663 (2) CHF (congestive heart failure) ICD Codes: I50.9 - Heart failure, unspecified SNOMED: 74472909 (3) Pancreatitis ICD Codes: K85.90 - Acute pancreatitis without necrosis or infection, unspecified SNOMED: 24856294 (4) CVA (cerebral vascular accident) ICD Codes: I63.9 - CVA (cerebral vascular accident) SNOMED: 757457353 (5) Abdominal distension ICD Codes: R14.0 - Abdominal distension (gaseous) SNOMED: 16561278 (6) Umbilical hernia ICD Codes: K42.9 - Umbilical hernia without obstruction or gangrene SNOMED: 753143319 Qualifiers: Qualified Codes: K42.9 - Umbilical hernia without obstruction or gangrene Status: stable Assessment/Plan: liver mass abdominal distention episodic hypertension and tachycardia abdominal distention PLAN GI follow up - reglan added general surgery reviewed monitor for change and recommend monitor cxr- reviewed overall liver masses previously - defer biopsy monitor TF not yet stable for snf impression, plan, and exam edited and reviewed in detail care discussed with RN Subjective ROS Limited/Unobtainable: Yes Allergies: Coded Allergies: No Known Allergies (Verified , 06/07/08) Subjective vitals reviewed biopsy cancelled GT placed to suction care noted and reviewed Objective Last 24 Hour Vital Signs Date Time Temp Pulse Resp B/P (MAP) Pulse Ox O2 Delivery O2 Flow Rate FiO2 09/11/18 09:07 148/80 09/11/18 08:00 98.3 61 19 148/80 (102) 98 09/11/18 07:35 71 20 100 Room Air 21 09/11/18 07:25 71 20 98 Room Air 09/11/18 04:00 97.5 114 16 157/70 (99) 96 09/11/18 04:00 Room Air 09/11/18 04:00 111 09/11/18 03:15 114 20 100 Room Air 09/11/18 03:08 94 20 96 Room Air 09/11/18 00:00 Room Air 09/11/18 00:00 97.5 110 20 159/70 (99) 95 09/11/18 00:00 105 09/10/18 23:09 98 18 100 Room Air 21 09/10/18 23:00 100 20 96 Room Air 21 09/10/18 20:00 97.5 109 20 158/96 (116) 100 09/10/18 20:00 92 09/10/18 20:00 Room Air 09/10/18 19:57 95 18 100 Room Air 09/10/18 19:46 102 20 95 Room Air 09/10/18 16:00 Room Air 09/10/18 16:00 98.1 98 26 142/81 (101) 99 09/10/18 15:21 114 09/10/18 14:55 102 20 100 Room Air 09/10/18 14:46 99 18 98 Room Air 09/10/18 12:55 110 09/10/18 12:00 Room Air 09/10/18 11:57 97.7 109 24 149/85 (106) 100 09/10/18 10:45 113 20 100 Room Air 09/10/18 10:39 113 18 98 Room Air 09/10/18 09:46 122 Intake and Output 09/10/18 09/11/18 19:00 07:00 Intake Total 1128.33 ml 1350 ml Output Total 130 ml 370 ml Balance 998.33 ml 980 ml Intake Free Water 100 ml 150 ml IV Total 1028.33 ml 1200 ml Output Urine Total 100 ml 300 ml Gastric Drainage Total 30 ml 70 ml # Voids 1 # Bowel Movements 2 Labs Test 09/09/18 07:05 09/09/18 08:45 09/09/18 20:41 09/10/18 03:50 Sodium Level 141 MMOL/L (136-145) 150 MMOL/L (136-145) Potassium Level 3.7 MMOL/L (3.5-5.1) 3.5 MMOL/L (3.5-5.1) Chloride Level 111 MMOL/L (98-107) 115 MMOL/L (98-107) Carbon Dioxide Level 21 MMOL/L (21-32) 26 MMOL/L (21-32) Anion Gap 9 mmol/L (5-15) 9 mmol/L (5-15) Blood Urea Nitrogen 10 mg/dL (7-18) 12 mg/dL (7-18) Creatinine 0.7 MG/DL (0.55-1.30) 0.7 MG/DL (0.55-1.30) Estimat Glomerular Filtration Rate mL/min (>60) mL/min (>60) Glucose Level 182 MG/DL (74-106) 165 MG/DL (74-106) Calcium Level 10.1 MG/DL (8.5-10.1) 10.6 MG/DL (8.5-10.1) Total Bilirubin 0.6 MG/DL (0.2-1.0) Aspartate Amino Transf (AST/SGOT) 42 U/L (15-37) Alanine Aminotransferase (ALT/SGPT) 10 U/L (12-78) Alkaline Phosphatase 347 U/L (46-116) Total Protein 6.5 G/DL (6.4-8.2) Albumin 1.9 G/DL (3.4-5.0) Globulin 4.6 g/dL Albumin/Globulin Ratio 0.4 (1.0-2.7) White Blood Count 6.7 K/UL (4.8-10.8) 9.6 K/UL (4.8-10.8) Red Blood Count 4.21 M/UL (4.70-6.10) 4.42 M/UL (4.70-6.10) Hemoglobin 12.7 G/DL (14.2-18.0) 13.5 G/DL (14.2-18.0) Hematocrit 40.8 % (42.0-52.0) 42.5 % (42.0-52.0) Mean Corpuscular Volume 97 FL (80-99) 96 FL (80-99) Mean Corpuscular Hemoglobin 30.2 PG (27.0-31.0) 30.6 PG (27.0-31.0) Mean Corpuscular Hemoglobin Concent 31.2 G/DL (32.0-36.0) 31.8 G/DL (32.0-36.0) Red Cell Distribution Width 14.0 % (11.6-14.8) 14.2 % (11.6-14.8) Platelet Count 240 K/UL (150-450) 264 K/UL (150-450) Mean Platelet Volume 5.6 FL (6.5-10.1) 5.7 FL (6.5-10.1) Neutrophils (%) (Auto) 71.3 % (45.0-75.0) 72.7 % (45.0-75.0) Lymphocytes (%) (Auto) 18.0 % (20.0-45.0) 18.6 % (20.0-45.0) Monocytes (%) (Auto) 8.3 % (1.0-10.0) 8.0 % (1.0-10.0) Eosinophils (%) (Auto) 1.8 % (0.0-3.0) 0.3 % (0.0-3.0) Basophils (%) (Auto) 0.6 % (0.0-2.0) 0.4 % (0.0-2.0) Iron Level 31 ug/dL (50-175) Total Iron Binding Capacity 194 ug/dL (250-450) Percent Iron Saturation 16 % (15-50) Unsaturated Iron Binding 163 ug/dL (112-346) Ferritin 118 NG/ML (8-388) Arterial Blood pH 7.323 (7.350-7.450) Arterial Blood Partial Pressure CO2 43.2 mmHg (35.0-45.0) Arterial Blood Partial Pressure O2 76.0 mmHg (75.0-100.0) Arterial Blood HCO3 21.9 mmol/L (22.0-26.0) Arterial Blood Oxygen Saturation 94.9 % (95-100) Arterial Blood Base Excess -4 (-2-2) Juan Alberot Test Positive CA 19-9 Antigen 14 U/mL (0-35) Height (Feet): 5 Height (Inches): 8.00 Weight (Pounds): 175 Objective WDWN NAD reduced breath sounds bilaterally without rhonchi or wheeze [id number] without MRG NABS noted some distention;Gt in place no CCE nonfocal skin exam noted confused, very reviewed and examined Dustin Mary MD Sep 11, 2018 09:46
--- NOTE | 2018-09-11 11:52 | GI Progress Note ---
Assessment/Plan Problems: (1) Anemia ICD Codes: D64.9 - Anemia, unspecified SNOMED: 033646597 (2) Liver mass ICD Codes: R16.0 - Hepatomegaly, not elsewhere classified SNOMED: 584515446 (3) Fecal impaction ICD Codes: K56.41 - Fecal impaction SNOMED: 59849319 (4) CVA (cerebral vascular accident) ICD Codes: I63.9 - CVA (cerebral vascular accident) SNOMED: 140621334 (5) G tube feedings ICD Codes: Z93.1 - Gastrostomy status SNOMED: 509736263, 772062295, 751342548 (6) Abdominal distension ICD Codes: R14.0 - Abdominal distension (gaseous) SNOMED: 11628829 (7) Constipation ICD Codes: K59.00 - Constipation, unspecified SNOMED: 62552537 Qualifiers: Qualified Codes: K59.00 - Constipation, unspecified Status: stable Status Narrative Discussed with Dr. Gonzales. Assessment/Plan KUB ordered for abdominal distention reported small BM GT was changed at the bedside Continue G-tube feedings Reglan as needed for motility Monitor H&H, PRN transfusions Turn patient every 2 hours tumor markers bowel regimen liver biopsy The patient was seen and examined at bedside and all new and available data was reviewed in the patients chart. I agree with the above findings, impression and plan. (Patient seen earlier today. Signature stamp does not reflect patient encounter time.). - Demetris Gonzales MD Subjective Subjective Limited Objective Last 24 Hour Vital Signs Date Time Temp Pulse Resp B/P (MAP) Pulse Ox O2 Delivery O2 Flow Rate FiO2 09/11/18 11:09 74 20 99 Room Air 09/11/18 10:55 91 20 97 Room Air 09/11/18 09:07 148/80 09/11/18 08:00 98.3 61 19 148/80 (102) 98 09/11/18 08:00 Room Air 09/11/18 07:50 112 09/11/18 07:35 71 20 100 Room Air 21 09/11/18 07:25 71 20 98 Room Air 21 09/11/18 04:00 97.5 114 16 157/70 (99) 96 09/11/18 04:00 Room Air 09/11/18 04:00 111 09/11/18 03:15 114 20 100 Room Air 09/11/18 03:08 94 20 96 Room Air 09/11/18 00:00 Room Air 09/11/18 00:00 97.5 110 20 159/70 (99) 95 09/11/18 00:00 105 09/10/18 23:09 98 18 100 Room Air 09/10/18 23:00 100 20 96 Room Air 09/10/18 20:00 97.5 109 20 158/96 (116) 100 09/10/18 20:00 92 09/10/18 20:00 Room Air 09/10/18 19:57 95 18 100 Room Air 09/10/18 19:46 102 20 95 Room Air 09/10/18 16:00 Room Air 09/10/18 16:00 98.1 98 26 142/81 (101) 99 09/10/18 15:21 114 09/10/18 14:55 102 20 100 Room Air 09/10/18 14:46 99 18 98 Room Air 09/10/18 12:55 110 09/10/18 12:00 Room Air 09/10/18 11:57 97.7 109 24 149/85 (106) 100 Intake and Output 09/10/18 09/11/18 19:00 07:00 Intake Total 1128.33 ml 1350 ml Output Total 130 ml 370 ml Balance 998.33 ml 980 ml Intake Free Water 100 ml 150 ml IV Total 1028.33 ml 1200 ml Output Urine Total 100 ml 300 ml Gastric Drainage Total 30 ml 70 ml # Voids 1 # Bowel Movements 2 Height (Feet): 5 Height (Inches): 8.00 Weight (Pounds): 175 General Appearance: WD/WN, no apparent distress, alert Cardiovascular: normal rate Respiratory/Chest: normal breath sounds, no respiratory distress Abdominal Exam: normal bowel sounds, non tender, soft, distended - tympanic Extremities: non-tender Michelle Samuel [employer] Sep 11, 2018 11:52
[2018-09-11 12:00] VITALS: BP 152/72
--- NOTE | 2018-09-11 12:52 | Diagnostic Imaging Report ---
Indication: Abdominal distention Technique: Supine view of the abdomen Comparison: 2018 Findings: Gas is seen in moderately prominent but not frankly dilated transverse colon. Bowel gas pattern is otherwise unremarkable. Gastrostomy, pacemaker lead again demonstrated. No significant change Impression: No definite acute process. Findings as noted
--- NOTE | 2018-09-11 13:09 | NUR ---
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 98.6 HR 109 RR 17 B/P 152/72 97% RA IS: IVF D5NS @ 100ML/HR HEPARIN SUBC LACTULOSE GT ABDOMINAL X-RAY STEP DOWN STATUS
--- NOTE | 2018-09-11 13:16 | Surgery Progress Note ---
Surgery Progress Note Subjective Symptoms: voiding well, passing flatus, BM Objective Last 24 Hour Vital Signs Date Time Temp Pulse Resp B/P (MAP) Pulse Ox O2 Delivery O2 Flow Rate FiO2 09/11/18 12:00 98.6 90 17 152/72 (98) 97 09/11/18 12:00 Room Air 09/11/18 11:55 109 09/11/18 11:09 74 20 99 Room Air 09/11/18 10:55 91 20 97 Room Air 09/11/18 09:07 148/80 09/11/18 08:00 98.3 61 19 148/80 (102) 98 09/11/18 08:00 Room Air 09/11/18 07:50 112 09/11/18 07:35 71 20 100 Room Air 09/11/18 07:25 71 20 98 Room Air 09/11/18 04:00 97.5 114 16 157/70 (99) 96 09/11/18 04:00 Room Air 09/11/18 04:00 111 09/11/18 03:15 114 20 100 Room Air 09/11/18 03:08 94 20 96 Room Air 09/11/18 00:00 Room Air 09/11/18 00:00 97.5 110 20 159/70 (99) 95 09/11/18 00:00 105 09/10/18 23:09 98 18 100 Room Air 09/10/18 23:00 100 20 96 Room Air 09/10/18 20:00 97.5 109 20 158/96 (116) 100 09/10/18 20:00 92 09/10/18 20:00 Room Air 09/10/18 19:57 95 18 100 Room Air 09/10/18 19:46 102 20 95 Room Air 09/10/18 16:00 Room Air 09/10/18 16:00 98.1 98 26 142/81 (101) 99 09/10/18 15:21 114 09/10/18 14:55 102 20 100 Room Air 09/10/18 14:46 99 18 98 Room Air 21 I&O Intake and Output 09/10/18 09/11/18 19:00 07:00 Intake Total 1128.33 ml 1350 ml Output Total 130 ml 370 ml Balance 998.33 ml 980 ml Intake Free Water 100 ml 150 ml IV Total 1028.33 ml 1200 ml Output Urine Total 100 ml 300 ml Gastric Drainage Total 30 ml 70 ml # Voids 1 # Bowel Movements 2 Cardiovascular: RSR Respiratory: clear Abdomen: soft, distended, non-tender, present bowel sounds Extremities: no tenderness, no cyanosis Plan Additional Comments KUB noted and stable labs okay exam stable cont with diet / feeds Jesse Cash Sep 11, 2018 13:16
[2018-09-11 16:00] VITALS: BP 160/88
--- NOTE | 2018-09-11 16:29 | Hematology/Onc Progress Note ---
Assessment/Plan Assessment/Plan Assessment and Recs # Liver mass - large heterogeneous mass in the right lobe of the liver suspicious for malignant neoplasm --> imaging has been reviewed and c/w likely malignancy --> as per Gi recs, CANCELLED tumor biopsy, has been present prior admission --> treatment once have results of primary # Anemia of chronic disease due to underlying chronic medical issues, multifactorial --> Anemia workup has been ordered, rule out gi bleed, ferritin is 118 --> No evidence of hemolysis is noted, peripheral smear has been reviewed. --> Hgb goal >7. Transfuse prn. --> Epogen or iron at this time is not particularly indicated --> Medications have been reviewed # Hypercalcemia - on admission elev, due to likely dehydration --> Ca has improved, on ivf --> on IVF also for hypernatremia # Fecal impaction --> on colace, senna as per gi # Constipation # Abdominal distension The timing of this note does not necessarily reflect the time of the patient was seen. GREATLY APPRECIATE CONSULTATION. Subjective Constitutional: Denies: no symptoms, chills, fever, malaise, weakness, other HEENT: Denies: no symptoms, eye pain, blurred vision, tearing, double vision, ear pain, ear discharge, nose pain, nose congestion, throat pain, throat swelling, mouth pain, mouth swelling, other Cardiovascular: Denies: no symptoms, chest pain, edema, irregular heart rate, lightheadedness, palpitations, syncope, other Respiratory: Denies: no symptoms, cough, shortness of breath, SOB with excertion, SOB at rest, sputum, wheezing, other Gastrointestinal/Abdominal: Denies: no symptoms, abdomen distended, abdominal pain, black stools, tarry stools, blood in stool, constipated, diarrhea, difficulty swallowing, nausea, poor appetite, poor fluid intake, rectal bleeding , vomiting, other Genitourinary: Denies: no symptoms, burning, discharge, frequency, flank pain, hematuria, incontinence, pain, urgency, other Neurologic/Psychiatric: Denies: no symptoms, anxiety, depressed, emotional problems, headache, numbness, paresthesia, pre-existing deficit, seizure, tingling, tremors, weakness, other Endocrine: Denies: no symptoms, excessive sweating, flushing, intolerance to cold, intolerance to heat, increased hunger, increased thirst, increased urine, unexplained weight gain, unexplained weight loss, other Allergies: Coded Allergies: No Known Allergies (Verified , 06/07/08) Subjective 09/10: no bleeding, no night sweats, no events otherwise, labs pending 09/11: liver biopsy cancelled, no events, tumor markers neg Objective Objective Current Medications Medications (Trade) Dose Ordered Sig/Reagan Route PRN Reason Start Time Stop Time Status Last Admin Dose Admin Acetaminophen (Tylenol) 650 mg Q4H PRN GT Mild Pain/Temp > 100.5 09/09/18 21:19 10/09/18 21:18 Albuterol Sulfate (Proventil) 2.5 mg Q4HRT HHN 09/09/18 23:00 09/14/18 22:59 09/11/18 15:24 Atorvastatin Calcium (Lipitor) 10 mg BEDTIME GT 09/10/18 21:00 10/04/18 20:59 09/10/18 20:51 Dextrose (Dextrose 50%) 25 ml Q30M PRN IV Hypoglycemia 09/09/18 21:30 10/03/18 21:29 Dextrose (Dextrose 50%) 50 ml Q30M PRN IV Hypoglycemia 09/09/18 21:30 10/03/18 21:29 Dextrose/Sodium Chloride 1,000 ml @ 100 mls/hr Q10H IV 09/10/18 09:00 10/10/18 08:59 09/11/18 15:36 Docusate Sodium (Colace) 100 mg BID GT 09/10/18 09:00 10/04/18 08:59 09/11/18 09:04 Donepezil HCl (Aricept) 10 mg BEDTIME GT 09/10/18 21:00 10/04/18 20:59 09/10/18 20:51 Heparin Sodium (Porcine) (Heparin 5000 units/ml) 5,000 units EVERY 12 HOURS SUBQ 09/10/18 09:00 10/04/18 08:59 09/11/18 09:05 Hydralazine HCl (Apresoline) 25 mg Q6H PRN GT For High Blood Pressure 09/09/18 21:20 10/09/18 21:19 Insulin Aspart (NovoLOG) EVERY 6 HOURS SUBQ 09/10/18 12:00 10/10/18 06:29 09/11/18 06:15 Insulin Detemir (Levemir) 5 units DAILY SUBQ 09/10/18 09:00 10/04/18 08:59 09/11/18 09:08 Lactulose (Cephulac) 10 gm THREE TIMES A DAY GT 09/10/18 09:00 10/08/18 12:59 09/11/18 13:19 Losartan Potassium (Cozaar) 100 mg DAILY GT 09/10/18 09:00 10/04/18 08:59 09/11/18 09:07 Metoclopramide HCl (Reglan) 5 mg Q8H PRN IVP Nausea & Vomiting 09/10/18 09:00 10/10/18 08:59 Mineral Oil (Mineral Oil) 30 ml DAILYPRN PRN GT Constipation 09/09/18 21:21 10/09/18 21:20 Polyethylene Glycol (Miralax) 17 gm BEDTIME GT 09/10/18 21:00 10/06/18 20:59 09/10/18 20:51 Sitagliptin Phosphate (Januvia) 100 mg DAILY GT 09/10/18 09:00 10/04/18 08:59 09/11/18 09:05 Vitamin D (Vitamin D) 1,000 intlu TWICE A DAY GT 09/10/18 09:00 10/04/18 08:59 09/11/18 09:05 Zinc Oxide (Desitin) 1 applic EVERY 8 HOURS TOPIC 09/10/18 14:00 10/08/18 10:29 09/11/18 13:21 Last 24 Hour Vital Signs Date Time Temp Pulse Resp B/P (MAP) Pulse Ox O2 Delivery O2 Flow Rate FiO2 09/11/18 16:00 Room Air 09/11/18 15:33 90 20 100 Room Air 09/11/18 15:23 96 20 98 Room Air 21 09/11/18 12:00 98.6 90 17 152/72 (98) 97 09/11/18 12:00 Room Air 09/11/18 11:55 109 09/11/18 11:09 74 20 99 Room Air 21 09/11/18 10:55 91 20 97 Room Air 21 09/11/18 09:07 148/80 09/11/18 08:00 98.3 61 19 148/80 (102) 98 09/11/18 08:00 Room Air 09/11/18 07:50 112 09/11/18 07:35 71 20 100 Room Air 09/11/18 07:25 71 20 98 Room Air 09/11/18 04:00 97.5 114 16 157/70 (99) 96 09/11/18 04:00 Room Air 09/11/18 04:00 111 09/11/18 03:15 114 20 100 Room Air 09/11/18 03:08 94 20 96 Room Air 09/11/18 00:00 Room Air 09/11/18 00:00 97.5 110 20 159/70 (99) 95 09/11/18 00:00 105 09/10/18 23:09 98 18 100 Room Air 09/10/18 23:00 100 20 96 Room Air 09/10/18 20:00 97.5 109 20 158/96 (116) 100 09/10/18 20:00 92 09/10/18 20:00 Room Air 09/10/18 19:57 95 18 100 Room Air 09/10/18 19:46 102 20 95 Room Air 09/10/18 16:00 Room Air 09/10/18 16:00 98.1 98 26 142/81 (101) 99 09/10/18 15:21 114 09/10/18 14:55 102 20 100 Room Air 09/10/18 14:46 99 18 98 Room Air 09/10/18 12:55 110 09/10/18 12:00 Room Air 09/10/18 11:57 97.7 109 24 149/85 (106) 100 09/10/18 10:45 113 20 100 Room Air 09/10/18 10:39 113 18 98 Room Air 09/10/18 09:46 122 09/10/18 09:42 152/90 09/10/18 08:00 Room Air 09/10/18 08:00 98.1 92 22 152/90 (110) 98 09/10/18 07:04 63 20 100 Room Air 09/10/18 06:59 62 18 96 Room Air 09/10/18 04:00 84 09/10/18 04:00 98.3 97 20 132/68 (89) 98 09/10/18 03:19 90 22 98 Room Air 09/10/18 03:07 80 18 97 Room Air 21 09/10/18 00:00 97.9 98 24 142/70 (94) 98 09/09/18 23:47 117 09/09/18 23:30 116 22 96 Room Air 21 09/09/18 23:20 108 20 95 Room Air 21 09/09/18 23:20 108 20 95 Room Air 21 09/09/18 22:37 119 09/09/18 21:30 97.7 104 22 140/74 (96) 96 09/09/18 21:00 Room Air 09/09/18 17:09 171/80 Intake and Output 09/10/18 09/11/18 19:00 07:00 Intake Total 1128.33 ml 1350 ml Output Total 130 ml 370 ml Balance 998.33 ml 980 ml Intake Free Water 100 ml 150 ml IV Total 1028.33 ml 1200 ml Output Urine Total 100 ml 300 ml Gastric Drainage Total 30 ml 70 ml # Voids 1 # Bowel Movements 2 Labs Test 09/09/18 07:05 09/09/18 08:45 09/09/18 20:41 09/10/18 03:50 Sodium Level 141 MMOL/L (136-145) 150 MMOL/L (136-145) Potassium Level 3.7 MMOL/L (3.5-5.1) 3.5 MMOL/L (3.5-5.1) Chloride Level 111 MMOL/L (98-107) 115 MMOL/L (98-107) Carbon Dioxide Level 21 MMOL/L (21-32) 26 MMOL/L (21-32) Anion Gap 9 mmol/L (5-15) 9 mmol/L (5-15) Blood Urea Nitrogen 10 mg/dL (7-18) 12 mg/dL (7-18) Creatinine 0.7 MG/DL (0.55-1.30) 0.7 MG/DL (0.55-1.30) Estimat Glomerular Filtration Rate mL/min (>60) mL/min (>60) Glucose Level 182 MG/DL (74-106) 165 MG/DL (74-106) Calcium Level 10.1 MG/DL (8.5-10.1) 10.6 MG/DL (8.5-10.1) Total Bilirubin 0.6 MG/DL (0.2-1.0) Aspartate Amino Transf (AST/SGOT) 42 U/L (15-37) Alanine Aminotransferase (ALT/SGPT) 10 U/L (12-78) Alkaline Phosphatase 347 U/L (46-116) Total Protein 6.5 G/DL (6.4-8.2) Albumin 1.9 G/DL (3.4-5.0) Globulin 4.6 g/dL Albumin/Globulin Ratio 0.4 (1.0-2.7) White Blood Count 6.7 K/UL (4.8-10.8) 9.6 K/UL (4.8-10.8) Red Blood Count 4.21 M/UL (4.70-6.10) 4.42 M/UL (4.70-6.10) Hemoglobin 12.7 G/DL (14.2-18.0) 13.5 G/DL (14.2-18.0) Hematocrit 40.8 % (42.0-52.0) 42.5 % (42.0-52.0) Mean Corpuscular Volume 97 FL (80-99) 96 FL (80-99) Mean Corpuscular Hemoglobin 30.2 PG (27.0-31.0) 30.6 PG (27.0-31.0) Mean Corpuscular Hemoglobin Concent 31.2 G/DL (32.0-36.0) 31.8 G/DL (32.0-36.0) Red Cell Distribution Width 14.0 % (11.6-14.8) 14.2 % (11.6-14.8) Platelet Count 240 K/UL (150-450) 264 K/UL (150-450) Mean Platelet Volume 5.6 FL (6.5-10.1) 5.7 FL (6.5-10.1) Neutrophils (%) (Auto) 71.3 % (45.0-75.0) 72.7 % (45.0-75.0) Lymphocytes (%) (Auto) 18.0 % (20.0-45.0) 18.6 % (20.0-45.0) Monocytes (%) (Auto) 8.3 % (1.0-10.0) 8.0 % (1.0-10.0) Eosinophils (%) (Auto) 1.8 % (0.0-3.0) 0.3 % (0.0-3.0) Basophils (%) (Auto) 0.6 % (0.0-2.0) 0.4 % (0.0-2.0) Iron Level 31 ug/dL (50-175) Total Iron Binding Capacity 194 ug/dL (250-450) Percent Iron Saturation 16 % (15-50) Unsaturated Iron Binding 163 ug/dL (112-346) Ferritin 118 NG/ML (8-388) Arterial Blood pH 7.323 (7.350-7.450) Arterial Blood Partial Pressure CO2 43.2 mmHg (35.0-45.0) Arterial Blood Partial Pressure O2 76.0 mmHg (75.0-100.0) Arterial Blood HCO3 21.9 mmol/L (22.0-26.0) Arterial Blood Oxygen Saturation 94.9 % (95-100) Arterial Blood Base Excess -4 (-2-2) Juan Alberto Test Positive CA 19-9 Antigen 14 U/mL (0-35) Height (Feet): 5 Height (Inches): 8.00 Weight (Pounds): 175 Objective Gen: well appearing, no apparent distress, alert Head: normocephalic EENT: PERRL/EOMI, normal ENT inspection Neck: supple Respiratory: normal breath sounds, no respiratory distress Cardiovascular: normal rate GI: normal inspection, non tender, soft, normal bowel sounds, non-distended ++ gtube Rectal: deferred Gu: deferred Musculoskeletal: normal inspection, back normal Neurologic: normal inspection, alert, oriented x3, responsive Psychiatric: normal inspection, judgement/insight normal, memory normal Skin: normal inspection, normal color, no rash, warm/dry, palpation normal, well hydrated Lymphatic: normal inspection, no adenopathy Fadi Vicente MD Sep 11, 2018 16:29
--- NOTE | 2018-09-11 19:11 | NUR ---
HAND-OFF: Report given to Rich GUEVARA. Pt. remain stable.
--- NOTE | 2018-09-11 19:15 | NUR ---
NURSE NOTES: Patient received from Tamara GUEVARA. Patient is awake, verbal to some extent. Patient is AAXO1-2. Patient has L PM is pacing on demand. On Room air saturating at 99%. G-tube noted. On intermittent suctioning. Patient is NPO at this time. HR is [address] ST. Condom catheter noted. Sacral wound noted. LFA 22G D51/2 NS at 100ml/hr. No acute distress at this time.
[2018-09-11 20:00] VITALS: BP 158/60
--- NOTE | 2018-09-11 20:00 | NUR ---
NURSE NOTES: Patient was repositioned and given oral care Held intermittent suctioning for GT meds Vitals remains stable afebrile. No respiratory distress at this time
[2018-09-11] MEDS: Donepezil 10mg tab GT SCH (20:23)
[2018-09-11] MEDS: Miralax 17gm pkt GT SCH (20:24)
[2018-09-12] VITALS: BP 155/54
--- NOTE | 2018-09-12 | NUR ---
NURSE NOTES: Repositioned Oral care given NAD at this time. Vitals remain stable afebrile no acute changes.
--- NOTE | 2018-09-12 01:30 | NUR ---
NURSE NOTES: Newly inserted 20G R FA.
[2018-09-12] MEDS: D5 1/2NS 1,000 ML IV SCH ×4 (01:47→23:16)
[2018-09-12] MEDS: Albuterol ud Inhalation HHN SCH ×6 (03:13→23:39)
[2018-09-12 04:00] VITALS: BP 120/83
--- NOTE | 2018-09-12 04:00 | NUR ---
NURSE NOTES: Patient noted to have large amount of brown liquid diarrhea Patient was cleaned and repositioned Calazime and Dressing applied to sacral area Rectal tube inserted d/t large amount of liquid diarrhea Afebrile/Vitals stable Patient is calm and relaxed No SOB or any distress at this time. P200 mattress applied
[2018-09-12] MEDS: Desitin Rash Paste TOPIC SCH ×3 (05:23→21:25)
[2018-09-12] MEDS: NovoLOG Insulin Flexpen SUBQ SCH ×4 (05:23→23:18)
[2018-09-12 05:41] LABS: BASOPHILS % (AUTO) 0.6 % (0.0-2.0); EOSINOPHILS % (AUTO) 1.9 % (0.0-3.0); HEMATOCRIT 37.3 % (42.0-52.0); LYMPHOCYTES % (AUTO) 16.2 % (20.0-45.0); MEAN CORPUSCULAR VOLUME 96 FL (80-99); MONOCYTES % (AUTO) 7.3 % (1.0-10.0); PLATELET COUNT 205 K/UL (150-450); RED BLOOD COUNT 3.89 M/UL (4.70-6.10); RED CELL DISTRIBUTION WIDTH 13.9 % (11.6-14.8); WHITE BLOOD COUNT 7.9 K/UL (4.8-10.8)
--- NOTE | 2018-09-12 06:00 | NUR ---
NURSE NOTES: Patient was repositioned Ora care was given and patient was suctioned No acute respiratory changes Patient remained stable throughout the night No new changes other than patient how has liquid diarrhea. Abdomen still remains mildly distended.
[2018-09-12 06:18] LABS: ANION GAP 7 mmol/L (5-15); BLOOD UREA NITROGEN 14 mg/dL (7-18); CALCIUM 9.9 MG/DL (8.5-10.1); CARBON DIOXIDE 27 MMOL/L (21-32); CHLORIDE 110 MMOL/L (98-107); CREATININE 0.7 MG/DL (0.55-1.30); POTASSIUM 2.9 MMOL/L (3.5-5.1); SODIUM 144 MMOL/L (136-145)
--- NOTE | 2018-09-12 07:12 | NUR ---
NURSE NOTES: Received bedside report from Rich GUEVARA. Pt. in bed, awake, no sign of distress. Denies pain at present. HOB elevated at all times. GT on cont. low intermittent suction patent/intact. Rectal tube in placed patent/intact. Condom cath in placed patent/intact draining yellow colored urine. 2 IV site at left FA in placed #22g and #20g. patent/intact running D5 1/2 NS at 100cc/hr. Bed in low position, locked. Call light within reach. Will cont. to monitor.
--- NOTE | 2018-09-12 07:35 | NUR ---
NURSE NOTES: Called Dr. Mary regarding pt. K+ today 2.9 with n.o of 60 meq. via gt of K+ supplement.
[2018-09-12 08:00] VITALS: BP 129/76
[2018-09-12] MEDS: Lactulose 10gm/15ml UDC GT SCH ×3 (08:10→18:16)
[2018-09-12] MEDS: Vitamin D 1000 IU Tab GT SCH ×2 (08:11→18:17)
[2018-09-12] MEDS: Docusate 100mg/10ml Liq GT SCH ×2 (08:11→18:16)
[2018-09-12] MEDS: Heparin 5000 units/ml inj SUBQ SCH ×2 (08:14→20:16)
[2018-09-12] MEDS: Levemir Flexpen SUBQ SCH (08:15)
[2018-09-12] MEDS: Losartan 50mg tab GT SCH (08:16)
--- NOTE | 2018-09-12 08:19 | General Progress Note ---
Assessment/Plan Problem List: (1) Atrial fibrillation and flutter ICD Codes: I48.91 - Unspecified atrial fibrillation; I48.92 - Unspecified atrial flutter SNOMED: 666645380 (2) CHF (congestive heart failure) ICD Codes: I50.9 - Heart failure, unspecified SNOMED: 47352039 (3) Pancreatitis ICD Codes: K85.90 - Acute pancreatitis without necrosis or infection, unspecified SNOMED: 54324111 (4) CVA (cerebral vascular accident) ICD Codes: I63.9 - CVA (cerebral vascular accident) SNOMED: 154578192 (5) Abdominal distension ICD Codes: R14.0 - Abdominal distension (gaseous) SNOMED: 37391041 (6) Umbilical hernia ICD Codes: K42.9 - Umbilical hernia without obstruction or gangrene SNOMED: 637794923 Qualifiers: Qualified Codes: K42.9 - Umbilical hernia without obstruction or gangrene Status: stable Assessment/Plan: liver mass abdominal distention episodic hypertension and tachycardia abdominal distention, slightly improved PLAN GI follow up and dispo planned general surgery reviewed monitor for change and recommend monitor cxr- reviewed overall liver masses previously - defer biopsy monitor TF not yet stable for snf; will discuss with consultants impression, plan, and exam edited and reviewed in detail care discussed with RN Subjective ROS Limited/Unobtainable: Yes Allergies: Coded Allergies: No Known Allergies (Verified , 06/07/08) Subjective vitals reviewed biopsy cancelled GT care noted low K care noted and reviewed Objective Last 24 Hour Vital Signs Date Time Temp Pulse Resp B/P (MAP) Pulse Ox O2 Delivery O2 Flow Rate FiO2 09/12/18 08:16 129/76 09/12/18 06:46 75 20 97 Room Air 09/12/18 06:40 98 18 96 Room Air 09/12/18 04:00 97.8 97 20 120/83 (95) 96 09/12/18 04:00 Room Air 09/12/18 03:23 79 20 98 Room Air 09/12/18 03:23 95 09/12/18 03:13 75 20 97 Room Air 09/12/18 00:00 97.2 60 20 155/54 (87) 97 09/12/18 00:00 Room Air 09/11/18 23:27 99 09/11/18 23:03 97 18 99 Room Air 21 09/11/18 22:50 69 18 97 Room Air 21 09/11/18 20:00 Room Air 09/11/18 20:00 97.9 68 16 158/60 (92) 100 09/11/18 20:00 106 09/11/18 19:53 68 18 100 Room Air 21 09/11/18 19:39 62 18 97 Room Air 09/11/18 16:00 75 09/11/18 16:00 97.5 87 18 160/88 (112) 100 09/11/18 16:00 Room Air 09/11/18 15:33 90 20 100 Room Air 21 09/11/18 15:23 96 20 98 Room Air 21 09/11/18 12:00 98.6 90 17 152/72 (98) 97 09/11/18 12:00 Room Air 09/11/18 11:55 109 09/11/18 11:09 74 20 99 Room Air 09/11/18 10:55 91 20 97 Room Air 09/11/18 09:07 148/80 Intake and Output 09/11/18 09/12/18 19:00 07:00 Intake Total 1050 ml 1100 ml Output Total 100 ml 800 ml Balance 950 ml 300 ml Intake Free Water 50 ml IV Total 1000 ml 1100 ml Output Urine Total 700 ml Gastric Drainage Total 100 ml 100 ml Laboratory Tests 09/12/18 03:40: White Blood Count 7.9, Red Blood Count 3.89L, Hemoglobin 12.0L, Hematocrit 37.3L , Mean Corpuscular Volume 96, Mean Corpuscular Hemoglobin 30.8, Mean Corpuscular Hemoglobin Concent 32.0, Red Cell Distribution Width 13.9, Platelet Count 205, Mean Platelet Volume 6.0L, Neutrophils (%) (Auto) 74.0, Lymphocytes ( %) (Auto) 16.2L, Monocytes (%) (Auto) 7.3, Eosinophils (%) (Auto) 1.9, Basophils (%) (Auto) 0.6, Sodium Level 144, Potassium Level 2.9L, Chloride Level 110H, Carbon Dioxide Level 27, Anion Gap 7, Blood Urea Nitrogen 14, Creatinine 0.7, Estimat Glomerular Filtration Rate , Glucose Level 149H, Calcium Level 9.9 Height (Feet): 5 Height (Inches): 8.00 Weight (Pounds): 175 Objective WDWN NAD reduced breath sounds bilaterally without rhonchi or wheeze [id number] without MRG NABS noted some distention;Gt in place no CCE nonfocal skin exam noted confused, very reviewed and examined Dustin Mary MD Sep 12, 2018 08:19
--- NOTE | 2018-09-12 09:59 | Hematology/Onc Progress Note ---
Assessment/Plan Assessment/Plan Assessment and Recs # Liver mass - large heterogeneous mass in the right lobe of the liver suspicious for malignant neoplasm --> imaging has been reviewed and c/w likely malignancy --> as per Gi recs, have cancelled tumor biopsy, has been present prior admission --> treatment once have results of primary # Anemia of chronic disease due to underlying chronic medical issues, multifactorial --> Anemia workup has been ordered, rule out gi bleed, ferritin is 118 --> No evidence of hemolysis is noted, peripheral smear has been reviewed. --> Hgb goal >7. Transfuse prn. --> Epogen or iron at this time is not particularly indicated --> Medications have been reviewed # Hypercalcemia - on admission elev, due to likely dehydration --> Ca has improved, on ivf --> on IVF also for hypernatremia # Fecal impaction --> on colace, senna as per gi # Constipation --> stool softeners per gi # Abdominal distension The timing of this note does not necessarily reflect the time of the patient was seen. GREATLY APPRECIATE CONSULTATION. Subjective Constitutional: Denies: no symptoms, chills, fever, malaise, weakness, other HEENT: Denies: no symptoms, eye pain, blurred vision, tearing, double vision, ear pain, ear discharge, nose pain, nose congestion, throat pain, throat swelling, mouth pain, mouth swelling, other Cardiovascular: Denies: no symptoms, chest pain, edema, irregular heart rate, lightheadedness, palpitations, syncope, other Respiratory: Denies: no symptoms, cough, shortness of breath, SOB with excertion, SOB at rest, sputum, wheezing, other Gastrointestinal/Abdominal: Denies: no symptoms, abdomen distended, abdominal pain, black stools, tarry stools, blood in stool, constipated, diarrhea, difficulty swallowing, nausea, poor appetite, poor fluid intake, rectal bleeding , vomiting, other Genitourinary: Denies: no symptoms, burning, discharge, frequency, flank pain, hematuria, incontinence, pain, urgency, other Allergies: Coded Allergies: No Known Allergies (Verified , 06/07/08) Subjective 09/10: no bleeding, no night sweats, no events otherwise, labs pending 09/11: liver biopsy cancelled, no events, tumor markers neg 09/12: no events, no bleeding, h/h reviewed, no f/c Objective Objective Current Medications Medications (Trade) Dose Ordered Sig/Reagan Route PRN Reason Start Time Stop Time Status Last Admin Dose Admin Acetaminophen (Tylenol) 650 mg Q4H PRN GT Mild Pain/Temp > 100.5 09/09/18 21:19 10/09/18 21:18 Albuterol Sulfate (Proventil) 2.5 mg Q4HRT HHN 09/09/18 23:00 09/14/18 22:59 09/12/18 06:52 Atorvastatin Calcium (Lipitor) 10 mg BEDTIME GT 09/10/18 21:00 10/04/18 20:59 09/11/18 20:23 Dextrose (Dextrose 50%) 25 ml Q30M PRN IV Hypoglycemia 09/09/18 21:30 10/03/18 21:29 Dextrose (Dextrose 50%) 50 ml Q30M PRN IV Hypoglycemia 09/09/18 21:30 10/03/18 21:29 Dextrose/Sodium Chloride 1,000 ml @ 100 mls/hr Q10H IV 09/10/18 09:00 10/10/18 08:59 09/12/18 01:47 Docusate Sodium (Colace) 100 mg BID GT 09/10/18 09:00 10/04/18 08:59 09/12/18 08:11 Donepezil HCl (Aricept) 10 mg BEDTIME GT 09/10/18 21:00 10/04/18 20:59 09/11/18 20:23 Heparin Sodium (Porcine) (Heparin 5000 units/ml) 5,000 units EVERY 12 HOURS SUBQ 09/10/18 09:00 10/04/18 08:59 09/12/18 08:14 Hydralazine HCl (Apresoline) 25 mg Q6H PRN GT For High Blood Pressure 09/09/18 21:20 10/09/18 21:19 Insulin Aspart (NovoLOG) EVERY 6 HOURS SUBQ 09/10/18 12:00 10/10/18 06:29 09/11/18 06:15 Insulin Detemir (Levemir) 5 units DAILY SUBQ 09/10/18 09:00 10/04/18 08:59 09/12/18 08:15 Lactulose (Cephulac) 10 gm THREE TIMES A DAY GT 09/10/18 09:00 10/08/18 12:59 09/12/18 08:10 Losartan Potassium (Cozaar) 100 mg DAILY GT 09/10/18 09:00 10/04/18 08:59 09/12/18 08:16 Metoclopramide HCl (Reglan) 5 mg Q8H PRN IVP Nausea & Vomiting 09/10/18 09:00 10/10/18 08:59 Mineral Oil (Mineral Oil) 30 ml DAILYPRN PRN GT Constipation 09/09/18 21:21 10/09/18 21:20 Polyethylene Glycol (Miralax) 17 gm BEDTIME GT 09/10/18 21:00 10/06/18 20:59 09/11/18 20:24 Sitagliptin Phosphate (Januvia) 100 mg DAILY GT 09/10/18 09:00 10/04/18 08:59 09/12/18 08:11 Vitamin D (Vitamin D) 1,000 intlu TWICE A DAY GT 09/10/18 09:00 10/04/18 08:59 09/12/18 08:11 Zinc Oxide (Desitin) 1 applic EVERY 8 HOURS TOPIC 09/10/18 14:00 10/08/18 10:29 09/12/18 05:23 Last 24 Hour Vital Signs Date Time Temp Pulse Resp B/P (MAP) Pulse Ox O2 Delivery O2 Flow Rate FiO2 09/12/18 08:16 129/76 09/12/18 08:00 98.8 111 18 129/76 (93) 97 09/12/18 08:00 Room Air 09/12/18 07:50 108 09/12/18 06:46 75 20 97 Room Air 09/12/18 06:40 98 18 96 Room Air 09/12/18 04:00 97.8 97 20 120/83 (95) 96 09/12/18 04:00 Room Air 09/12/18 03:23 79 20 98 Room Air 09/12/18 03:23 95 09/12/18 03:13 75 20 97 Room Air 09/12/18 00:00 97.2 60 20 155/54 (87) 97 09/12/18 00:00 Room Air 09/11/18 23:27 99 09/11/18 23:03 97 18 99 Room Air 09/11/18 22:50 69 18 97 Room Air 21 09/11/18 20:00 Room Air 09/11/18 20:00 97.9 68 16 158/60 (92) 100 09/11/18 20:00 106 09/11/18 19:53 68 18 100 Room Air 09/11/18 19:39 62 18 97 Room Air 09/11/18 16:00 75 09/11/18 16:00 97.5 87 18 160/88 (112) 100 09/11/18 16:00 Room Air 09/11/18 15:33 90 20 100 Room Air 09/11/18 15:23 96 20 98 Room Air 09/11/18 12:00 98.6 90 17 152/72 (98) 97 09/11/18 12:00 Room Air 09/11/18 11:55 109 09/11/18 11:09 74 20 99 Room Air 09/11/18 10:55 91 20 97 Room Air 09/11/18 09:07 148/80 09/11/18 08:00 98.3 61 19 148/80 (102) 98 09/11/18 08:00 Room Air 09/11/18 07:50 112 09/11/18 07:35 71 20 100 Room Air 09/11/18 07:25 71 20 98 Room Air 09/11/18 04:00 97.5 114 16 157/70 (99) 96 09/11/18 04:00 Room Air 09/11/18 04:00 111 09/11/18 03:15 114 20 100 Room Air 09/11/18 03:08 94 20 96 Room Air 09/11/18 00:00 Room Air 09/11/18 00:00 97.5 110 20 159/70 (99) 95 09/11/18 00:00 105 09/10/18 23:09 98 18 100 Room Air 09/10/18 23:00 100 20 96 Room Air 09/10/18 20:00 97.5 109 20 158/96 (116) 100 09/10/18 20:00 92 09/10/18 20:00 Room Air 09/10/18 19:57 95 18 100 Room Air 09/10/18 19:46 102 20 95 Room Air 09/10/18 16:00 Room Air 09/10/18 16:00 98.1 98 26 142/81 (101) 99 09/10/18 15:21 114 09/10/18 14:55 102 20 100 Room Air 21 09/10/18 14:46 99 18 98 Room Air 21 09/10/18 12:55 110 09/10/18 12:00 Room Air 09/10/18 11:57 97.7 109 24 149/85 (106) 100 09/10/18 10:45 113 20 100 Room Air 21 09/10/18 10:39 113 18 98 Room Air 21 Intake and Output 09/11/18 09/12/18 19:00 07:00 Intake Total 1050 ml 1100 ml Output Total 100 ml 800 ml Balance 950 ml 300 ml Intake Free Water 50 ml IV Total 1000 ml 1100 ml Output Urine Total 700 ml Gastric Drainage Total 100 ml 100 ml Labs Test 09/09/18 20:41 09/10/18 03:50 09/12/18 03:40 Arterial Blood pH 7.323 (7.350-7.450) Arterial Blood Partial Pressure CO2 43.2 mmHg (35.0-45.0) Arterial Blood Partial Pressure O2 76.0 mmHg (75.0-100.0) Arterial Blood HCO3 21.9 mmol/L (22.0-26.0) Arterial Blood Oxygen Saturation 94.9 % (95-100) Arterial Blood Base Excess -4 (-2-2) Juan Alberto Test Positive White Blood Count 9.6 K/UL (4.8-10.8) 7.9 K/UL (4.8-10.8) Red Blood Count 4.42 M/UL (4.70-6.10) 3.89 M/UL (4.70-6.10) Hemoglobin 13.5 G/DL (14.2-18.0) 12.0 G/DL (14.2-18.0) Hematocrit 42.5 % (42.0-52.0) 37.3 % (42.0-52.0) Mean Corpuscular Volume 96 FL (80-99) 96 FL (80-99) Mean Corpuscular Hemoglobin 30.6 PG (27.0-31.0) 30.8 PG (27.0-31.0) Mean Corpuscular Hemoglobin Concent 31.8 G/DL (32.0-36.0) 32.0 G/DL (32.0-36.0) Red Cell Distribution Width 14.2 % (11.6-14.8) 13.9 % (11.6-14.8) Platelet Count 264 K/UL (150-450) 205 K/UL (150-450) Mean Platelet Volume 5.7 FL (6.5-10.1) 6.0 FL (6.5-10.1) Neutrophils (%) (Auto) 72.7 % (45.0-75.0) 74.0 % (45.0-75.0) Lymphocytes (%) (Auto) 18.6 % (20.0-45.0) 16.2 % (20.0-45.0) Monocytes (%) (Auto) 8.0 % (1.0-10.0) 7.3 % (1.0-10.0) Eosinophils (%) (Auto) 0.3 % (0.0-3.0) 1.9 % (0.0-3.0) Basophils (%) (Auto) 0.4 % (0.0-2.0) 0.6 % (0.0-2.0) Sodium Level 150 MMOL/L (136-145) 144 MMOL/L (136-145) Potassium Level 3.5 MMOL/L (3.5-5.1) 2.9 MMOL/L (3.5-5.1) Chloride Level 115 MMOL/L (98-107) 110 MMOL/L (98-107) Carbon Dioxide Level 26 MMOL/L (21-32) 27 MMOL/L (21-32) Anion Gap 9 mmol/L (5-15) 7 mmol/L (5-15) Blood Urea Nitrogen 12 mg/dL (7-18) 14 mg/dL (7-18) Creatinine 0.7 MG/DL (0.55-1.30) 0.7 MG/DL (0.55-1.30) Estimat Glomerular Filtration Rate mL/min (>60) mL/min (>60) Glucose Level 165 MG/DL (74-106) 149 MG/DL (74-106) Calcium Level 10.6 MG/DL (8.5-10.1) 9.9 MG/DL (8.5-10.1) CA 19-9 Antigen 14 U/mL (0-35) Height (Feet): 5 Height (Inches): 8.00 Weight (Pounds): 175 Objective Gen: well appearing, no apparent distress, alert Head: normocephalic EENT: PERRL/EOMI, normal ENT inspection Pulm: normal breath sounds, no respiratory distress CV: rrr. no mgr GI: normal inspection, non tender, soft, normal bowel sounds, non-distended ++ gtube Rectal: deferred Gu: deferred Musculoskeletal: normal inspection, back normal Neurologic: normal inspection, alert, oriented x3, responsive Psychiatric: normal inspection, judgement/insight normal, memory normal Skin: normal inspection, normal color, no rash, warm/dry, palpation normal, well hydrated Fadi Vicente MD Sep 12, 2018 09:59
--- NOTE | 2018-09-12 10:02 | NUR ---
RD ASSESSMENT & RECOMMENDATIONS SEE CARE ACTIVITY FOR COMPLETE ASSESSMENT DAILY ESTIMATED NEEDS: Needs based on DM/ 65.5kg 25-30 kcals/kg 1513-5476 total kcals 1-1.5 g protein/kg 66-99 g total protein 25-30 mL/kg 2999-0086 total fluid mLs NUTRITION DIAGNOSIS: 1) Altered GI fxn r/t SBO and fecal impaction as evidenced by pt w/ elev tube feeding residuals, TF held, GT to LIS, pt now w/ diarrhea w/ rectal tube. (NEW) 2) Swallowing difficulty R/T dysphagia as evidenced by pt w/ GT, on GT feeding + oral diet on pureed CHIEF CUSTOMER OFFICER, currently w/ an order for TF only. CURRENT TF: NPO- GT to LOS ENTERAL NUTRITION RECOMMENDATIONS: Glucerna 1.2 @ 60ml/hr x 24 hrs to provide 1440ml, 1728kcal, 86g prot, 1159ml free water * As medically appropriate, initiate TF * Rec initiate Glucerna 1.2 @ 20ml/hr x 6hrs. * Advance by 10ml/hr every 4-6 hours to goal rate * HOB >30 degrees, H2O flushes per MD * At goal, TF provides 100% of est. kcal & prot needs ADDITIONAL RECOMMENDATIONS: 1) Calibrated bedscale wt 2) Consider TELEPHONE DIAPHRAGM ASSEMBLER eval for oral diet -> Pt on pureed texture diet CHIEF CUSTOMER OFFICER 3) Initiate TF as medically appropriate, rec as above-> NPO now Day3 4) Wound healing: add Vit C 250mg QD, Jarocho 1pkt BID
--- NOTE | 2018-09-12 11:30 | NUR ---
NURSE NOTES:WOUND CARE FOLLOW-UP NOTES:DTPI with partial opening noted to sacrum. Base of wound is dry and viable with surrounding maroon area that is less indurated as compared to initial assessment.(L)3cm x (W)2cm.Dark skin pigmentation without induration periwound(L)10cm x (W)6.5cm.Both heels are boggy but pink and blanchable. NO new skin concerns noted. Pt has an APM/WIL mattress overlay .Wound Tx. effective and continued as ordered. Tx.Plan: Apply Moisture Barrier Paste to sacrum. Cover with Optifoam drsg. Change very 3 days and prn. Apply Moisture Barrier Paste to scrotum and both ischial areas with each incontinence care. Apply Cavilon Skin Barrier to both heels. Cover each heel with Optifoam drsg. Change every 7 days and prn. APM/WIL mattress overlay. Of-load heels with pillow. Reposition at least every 2hours or as tolerated.
--- NOTE | 2018-09-12 11:31 | GI Progress Note ---
Assessment/Plan Problems: (1) Anemia ICD Codes: D64.9 - Anemia, unspecified SNOMED: 435500914 (2) Liver mass ICD Codes: R16.0 - Hepatomegaly, not elsewhere classified SNOMED: 573461363 (3) Fecal impaction ICD Codes: K56.41 - Fecal impaction SNOMED: 82457306 (4) CVA (cerebral vascular accident) ICD Codes: I63.9 - CVA (cerebral vascular accident) SNOMED: 194359497 (5) G tube feedings ICD Codes: Z93.1 - Gastrostomy status SNOMED: 390909653, 293308973, 207637191 (6) Abdominal distension ICD Codes: R14.0 - Abdominal distension (gaseous) SNOMED: 06924574 (7) Constipation ICD Codes: K59.00 - Constipation, unspecified SNOMED: 67103374 Qualifiers: Qualified Codes: K59.00 - Constipation, unspecified Status: unchanged Status Narrative Discussed with Dr. Gonzales. Assessment/Plan KUB ordered for abdominal distention >> no acute process reported small BM GT was changed at the bedside Continue G-tube feedings Reglan as needed for motility Monitor H&H, PRN transfusions Turn patient every 2 hours tumor markers bowel regimen The patient was seen and examined at bedside and all new and available data was reviewed in the patients chart. I agree with the above findings, impression and plan. (Patient seen earlier today. Signature stamp does not reflect patient encounter time.). - Demetris Gonzales MD Subjective Subjective Limited Objective Last 24 Hour Vital Signs Date Time Temp Pulse Resp B/P (MAP) Pulse Ox O2 Delivery O2 Flow Rate FiO2 09/12/18 10:41 73 18 99 Room Air 09/12/18 10:35 92 16 95 Room Air 09/12/18 08:16 129/76 09/12/18 08:00 98.8 111 18 129/76 (93) 97 09/12/18 08:00 Room Air 09/12/18 07:50 108 09/12/18 06:46 75 20 97 Room Air 09/12/18 06:40 98 18 96 Room Air 09/12/18 04:00 97.8 97 20 120/83 (95) 96 09/12/18 04:00 Room Air 09/12/18 03:23 79 20 98 Room Air 21 09/12/18 03:23 95 09/12/18 03:13 75 20 97 Room Air 09/12/18 00:00 97.2 60 20 155/54 (87) 97 09/12/18 00:00 Room Air 09/11/18 23:27 99 09/11/18 23:03 97 18 99 Room Air 09/11/18 22:50 69 18 97 Room Air 21 09/11/18 20:00 Room Air 09/11/18 20:00 97.9 68 16 158/60 (92) 100 09/11/18 20:00 106 09/11/18 19:53 68 18 100 Room Air 09/11/18 19:39 62 18 97 Room Air 21 09/11/18 16:00 75 09/11/18 16:00 97.5 87 18 160/88 (112) 100 09/11/18 16:00 Room Air 09/11/18 15:33 90 20 100 Room Air 09/11/18 15:23 96 20 98 Room Air 09/11/18 12:00 98.6 90 17 152/72 (98) 97 09/11/18 12:00 Room Air 09/11/18 11:55 109 Intake and Output 09/11/18 09/12/18 19:00 07:00 Intake Total 1050 ml 1200 ml Output Total 100 ml 800 ml Balance 950 ml 400 ml Intake Free Water 50 ml IV Total 1000 ml 1200 ml Output Urine Total 700 ml Gastric Drainage Total 100 ml 100 ml Laboratory Tests Test 09/12/18 03:40 White Blood Count 7.9 K/UL (4.8-10.8) Red Blood Count 3.89 M/UL (4.70-6.10) L Hemoglobin 12.0 G/DL (14.2-18.0) L Hematocrit 37.3 % (42.0-52.0) L Mean Corpuscular Volume 96 FL (80-99) Mean Corpuscular Hemoglobin 30.8 PG (27.0-31.0) Mean Corpuscular Hemoglobin Concent 32.0 G/DL (32.0-36.0) Red Cell Distribution Width 13.9 % (11.6-14.8) Platelet Count 205 K/UL (150-450) Mean Platelet Volume 6.0 FL (6.5-10.1) L Neutrophils (%) (Auto) 74.0 % (45.0-75.0) Lymphocytes (%) (Auto) 16.2 % (20.0-45.0) L Monocytes (%) (Auto) 7.3 % (1.0-10.0) Eosinophils (%) (Auto) 1.9 % (0.0-3.0) Basophils (%) (Auto) 0.6 % (0.0-2.0) Sodium Level 144 MMOL/L (136-145) Potassium Level 2.9 MMOL/L (3.5-5.1) L Chloride Level 110 MMOL/L (98-107) H Carbon Dioxide Level 27 MMOL/L (21-32) Anion Gap 7 mmol/L (5-15) Blood Urea Nitrogen 14 mg/dL (7-18) Creatinine 0.7 MG/DL (0.55-1.30) Estimat Glomerular Filtration Rate mL/min (>60) Glucose Level 149 MG/DL (74-106) H Calcium Level 9.9 MG/DL (8.5-10.1) Height (Feet): 5 Height (Inches): 8.00 Weight (Pounds): 175 General Appearance: alert Cardiovascular: normal rate Respiratory/Chest: normal breath sounds, no respiratory distress Abdominal Exam: distended Michelle Samuel NP Sep 12, 2018 11:31
--- NOTE | 2018-09-12 11:43 | NUR ---
NURSE NOTES: Pt. seen by Alexx CLINICAL TECHNOLOGIST and informed him with poor urine output thru condom cath. CLINICAL TECHNOLOGIST ordered to do bladder scan and if 250ml. urine do in and out cath. Q6hrs. Checked thru bladder scan 316ml noted. Will cont. to monitor.
[2018-09-12 12:00] VITALS: BP 149/66
--- NOTE | 2018-09-12 12:10 | NUR ---
NURSE NOTES: Done I&O cath. noted with 100ml. output. Pt. with difficulty of inserting cath. and due to uncircumcised also. Informed Dr. Mary and gave order for urologist consult under Dr. Marjorie Beck. Will cont. to monitor.
[2018-09-12 16:00] VITALS: BP 150/92
--- NOTE | 2018-09-12 18:00 | NUR ---
NURSE NOTES: Pt. with incontinent episode x2. Able to urinate.
--- NOTE | 2018-09-12 19:20 | NUR ---
NURSE NOTES: Received report from Tamara GUEVARA, pt. in bed with eyes open, appears to be alert to name, no signs or symptoms of acute cardiac or respiratory distress noted, bed in lowest position and call light within easy reach, bed alarm on, side rails up x's up x's3 and safety brakes engaged, pt. appears to be sating well on room air at 98%- no distress noted, pt. is clean and dry, comfort measures provided, G tube set to low intermittent suction, Rt. AC 22G running D5 1/2 NS at 100cc/hr- IV intact and patent, LFA 22G and LFA 20G both IVs intact and patent, safety measures continued, will continue with plan of care.
--- NOTE | 2018-09-12 19:23 | NUR ---
HAND-OFF: Report given to Emerson GUEVARA. Pt. remain stable.
[2018-09-12 20:00] VITALS: BP 133/80
[2018-09-12] MEDS: Donepezil 10mg tab GT SCH (20:14)
[2018-09-12] MEDS: Miralax 17gm pkt GT SCH (20:14)
--- NOTE | 2018-09-12 20:34 | NUR ---
NURSE NOTES: bladder scan done according to MD orders- showing 50mls- no In and out catheter needed- pt. remains stable. Will continue to monitor pt. and with plan of care.
[2018-09-13] VITALS: BP 126/72
--- NOTE | 2018-09-13 02:30 | NUR ---
NURSE NOTES: bladder scan done on patient- 92mls show on scanner- scanned multiple times. pt. remains stable- will continue to monitor pt. and with plan of care.
[2018-09-13] MEDS: Albuterol ud Inhalation HHN SCH ×6 (03:24→23:22)
[2018-09-13 04:00] VITALS: BP 135/67
[2018-09-13 04:48] LABS: ANION GAP 4 mmol/L (5-15); BLOOD UREA NITROGEN 14 mg/dL (7-18); CARBON DIOXIDE 28 MMOL/L (21-32); CHLORIDE 110 MMOL/L (98-107); CREATININE 0.7 MG/DL (0.55-1.30); POTASSIUM 3.1 MMOL/L (3.5-5.1); SODIUM 142 MMOL/L (136-145)
[2018-09-13 04:51] LABS: BASOPHILS % (AUTO) 0.5 % (0.0-2.0); EOSINOPHILS % (AUTO) 1.9 % (0.0-3.0); HEMATOCRIT 37.3 % (42.0-52.0); HEMOGLOBIN 12.1 G/DL (14.2-18.0); LYMPHOCYTES % (AUTO) 17.3 % (20.0-45.0); MEAN CORPUSCULAR VOLUME 95 FL (80-99); MONOCYTES % (AUTO) 7.4 % (1.0-10.0); NEUTROPHILS % (AUTO) 72.9 % (45.0-75.0); PLATELET COUNT 194 K/UL (150-450); RED BLOOD COUNT 3.93 M/UL (4.70-6.10); RED CELL DISTRIBUTION WIDTH 14.1 % (11.6-14.8); WHITE BLOOD COUNT 8.4 K/UL (4.8-10.8)
[2018-09-13] MEDS: Desitin Rash Paste TOPIC SCH ×3 (05:17→21:38)
[2018-09-13] MEDS: NovoLOG Insulin Flexpen SUBQ SCH ×4 (05:18→23:08)
--- NOTE | 2018-09-13 07:14 | NUR ---
NURSE NOTES: receive dpatient report from joann hernandez. patient is on bed awake. on breathing treatment with RT. not in acute distress. bed is low and locked for safety. will follow plan of care.
--- NOTE | 2018-09-13 07:15 | NUR ---
HAND-OFF: Report given to Shahnaz GUEVARA, pt. remains stable and no signs of distress noted, aware to f/u on nursing orders to check bladder q6hrs.
--- NOTE | 2018-09-13 07:20 | NUR ---
NURSE NOTES: left a message to cira Rock regarding his notes yesterday if he wants to restart tube feedings. awaits callback and new order.
--- NOTE | 2018-09-13 07:31 | NUR ---
NURSE NOTES: dr coronel made aware that patient k level today is 3.1. dr coronel called back and ordered 30kcl IV over 3 hrs.
[2018-09-13 08:00] VITALS: BP 124/53
[2018-09-13] MEDS: Vitamin D 1000 IU Tab GT SCH ×2 (08:24→17:03)
[2018-09-13] MEDS: Docusate 100mg/10ml Liq GT SCH ×2 (08:24→17:03)
[2018-09-13] MEDS: Lactulose 10gm/15ml UDC GT SCH ×3 (08:24→17:04)
[2018-09-13] MEDS: Losartan 50mg tab GT SCH (08:24)
[2018-09-13] MEDS: Levemir Flexpen SUBQ SCH (08:28)
[2018-09-13] MEDS: Heparin 5000 units/ml inj SUBQ SCH ×2 (08:28→21:39)
[2018-09-13] MEDS: D5 1/2NS 1,000 ML IV SCH ×2 (08:41→19:23)
--- NOTE | 2018-09-13 08:44 | General Progress Note ---
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 SNOMED: 317729097, 597076185, 191166611 (2) Anemia ICD Codes: D64.9 - Anemia, unspecified SNOMED: 827760316 (3) Liver mass ICD Codes: R16.0 - Hepatomegaly, not elsewhere classified SNOMED: 899011281 (4) Fecal impaction ICD Codes: K56.41 - Fecal impaction SNOMED: 03795380 (5) CVA (cerebral vascular accident) ICD Codes: I63.9 - CVA (cerebral vascular accident) SNOMED: 368408634 (6) CHF (congestive heart failure) ICD Codes: I50.9 - Heart failure, unspecified SNOMED: 41625007 (7) Atrial fibrillation and flutter ICD Codes: I48.91 - Unspecified atrial fibrillation; I48.92 - Unspecified atrial flutter SNOMED: 169266892 (8) Constipation ICD Codes: K59.00 - Constipation, unspecified SNOMED: 79912546 Qualifiers: Qualified Codes: K59.00 - Constipation, unspecified (9) Abdominal distension ICD Codes: R14.0 - Abdominal distension (gaseous) SNOMED: 18921522 Status: unchanged Assessment/Plan: KUB ordered for abdominal distention >> no acute process reported small BM GT was changed at the bedside resume G-tube feedings Reglan low dose plan HL iv if GTF tolerated today Monitor H&H, PRN transfusions Turn patient every 2 hours bowel regimen Subjective ROS Limited/Unobtainable: No - had one BM Allergies: Coded Allergies: No Known Allergies (Verified , 06/07/08) Subjective had rapid response yesterday ? aspirated elevated GT residuals Objective Last 24 Hour Vital Signs Date Time Temp Pulse Resp B/P (MAP) Pulse Ox O2 Delivery O2 Flow Rate FiO2 09/13/18 08:24 124/53 09/13/18 08:00 97.9 82 16 124/53 (76) 95 09/13/18 07:10 62 18 100 Room Air 21 09/13/18 07:01 59 18 100 Room Air 21 09/13/18 04:00 98.0 82 18 135/67 (89) 99 09/13/18 04:00 Room Air 09/13/18 04:00 104 09/13/18 03:34 66 18 100 Room Air 21 09/13/18 03:24 65 18 98 Room Air 21 09/13/18 00:00 98.1 108 18 126/72 (90) 98 09/13/18 00:00 Room Air 09/12/18 23:49 73 18 97 Room Air 21 09/12/18 23:39 72 18 96 Room Air 21 09/12/18 23:34 92 09/12/18 20:00 Room Air 09/12/18 20:00 114 09/12/18 20:00 97.6 111 18 133/80 (97) 99 09/12/18 19:26 76 18 99 Room Air 21 09/12/18 19:16 78 20 98 Room Air 21 09/12/18 16:00 97.5 109 16 150/92 (111) 100 09/12/18 16:00 Room Air 09/12/18 15:42 70 18 98 Room Air 21 09/12/18 15:34 89 18 96 Room Air 21 09/12/18 15:23 99 09/12/18 12:00 97.9 59 19 149/66 (93) 96 09/12/18 12:00 Room Air 09/12/18 11:30 110 09/12/18 10:41 73 18 99 Room Air 21 09/12/18 10:35 92 16 95 Room Air 21 Intake and Output 09/12/18 09/13/18 18:59 06:59 Intake Total 500 ml 1175 ml Output Total 110 ml Balance 390 ml 1175 ml Intake Free Water 100 ml IV Total 400 ml 1175 ml Stool Total 110 ml # Voids 2 # Bowel Movements 1 Laboratory Tests 09/13/18 03:41: White Blood Count 8.4, Red Blood Count 3.93L, Hemoglobin 12.1L, Hematocrit 37.3L , Mean Corpuscular Volume 95, Mean Corpuscular Hemoglobin 30.7, Mean Corpuscular Hemoglobin Concent 32.4, Red Cell Distribution Width 14.1, Platelet Count 194, Mean Platelet Volume 5.8L, Neutrophils (%) (Auto) 72.9, Lymphocytes ( %) (Auto) 17.3L, Monocytes (%) (Auto) 7.4, Eosinophils (%) (Auto) 1.9, Basophils (%) (Auto) 0.5, Sodium Level 142, Potassium Level 3.1L, Chloride Level 110H, Carbon Dioxide Level 28, Anion Gap 4L, Blood Urea Nitrogen 14, Creatinine 0.7, Estimat Glomerular Filtration Rate , Glucose Level 132H, Calcium Level 10.0 Height (Feet): 5 Height (Inches): 8.00 Weight (Pounds): 175 General Appearance: lethargic EENT: normal ENT inspection Neck: supple Cardiovascular: normal rate Respiratory/Chest: decreased breath sounds Abdomen: soft, hypoactive bowel sounds, distended Extremities: non-tender Demetris Gonzales MD Sep 13, 2018 08:44
--- NOTE | 2018-09-13 10:12 | Hematology/Onc Progress Note ---
Assessment/Plan Assessment/Plan Assessment and Recs # Liver mass - large heterogeneous mass in the right lobe of the liver suspicious for malignant neoplasm --> imaging has been reviewed and c/w likely malignancy --> as per Gi recs, have cancelled tumor biopsy, has been present prior admission --> treatment once have results of primary # Anemia of chronic disease due to underlying chronic medical issues, multifactorial --> Anemia workup has been ordered, rule out gi bleed, ferritin is 118 --> No evidence of hemolysis is noted, peripheral smear has been reviewed. --> Hgb goal >7. Transfuse prn. --> Epogen or iron at this time is not particularly indicated --> Medications have been reviewed --> improved trend 10-->11-->12 # Hypercalcemia - on admission elev, due to likely dehydration --> Ca has improved, on ivf --> on IVF also for hypernatremia # Fecal impaction --> on colace, senna as per gi # Constipation --> stool softeners per gi # Abdominal distension The timing of this note does not necessarily reflect the time of the patient was seen. GREATLY APPRECIATE CONSULTATION. Subjective Constitutional: Denies: no symptoms, chills, fever, malaise, weakness, other Cardiovascular: Denies: no symptoms, chest pain, edema, irregular heart rate, lightheadedness, palpitations, syncope, other Genitourinary: Denies: no symptoms, burning, discharge, frequency, flank pain, hematuria, incontinence, pain, urgency, other Neurologic/Psychiatric: Denies: no symptoms, anxiety, depressed, emotional problems, headache, numbness, paresthesia, pre-existing deficit, seizure, tingling, tremors, weakness, other Allergies: Coded Allergies: No Known Allergies (Verified , 06/07/08) Subjective 09/10: no bleeding, no night sweats, no events otherwise, labs pending 09/11: liver biopsy cancelled, no events, tumor markers neg 09/12: no events, no bleeding, h/h reviewed, no f/c 09/13: patient being turned every 2 hrs, seen by gi Objective Objective Current Medications Medications (Trade) Dose Ordered Sig/Reagan Route PRN Reason Start Time Stop Time Status Last Admin Dose Admin Acetaminophen (Tylenol) 650 mg Q4H PRN GT Mild Pain/Temp > 100.5 09/09/18 21:19 10/09/18 21:18 Albuterol Sulfate (Proventil) 2.5 mg Q4HRT HHN 09/09/18 23:00 09/14/18 22:59 09/13/18 06:59 Atorvastatin Calcium (Lipitor) 10 mg BEDTIME GT 09/10/18 21:00 10/04/18 20:59 09/12/18 20:14 Dextrose (Dextrose 50%) 25 ml Q30M PRN IV Hypoglycemia 09/09/18 21:30 10/03/18 21:29 Dextrose (Dextrose 50%) 50 ml Q30M PRN IV Hypoglycemia 09/09/18 21:30 10/03/18 21:29 Dextrose/Sodium Chloride 1,000 ml @ 100 mls/hr Q10H IV 09/10/18 09:00 10/10/18 08:59 09/13/18 08:41 Docusate Sodium (Colace) 100 mg BID GT 09/10/18 09:00 10/04/18 08:59 09/13/18 08:24 Donepezil HCl (Aricept) 10 mg BEDTIME GT 09/10/18 21:00 10/04/18 20:59 09/12/18 20:14 Heparin Sodium (Porcine) (Heparin 5000 units/ml) 5,000 units EVERY 12 HOURS SUBQ 09/10/18 09:00 10/04/18 08:59 09/13/18 08:28 Hydralazine HCl (Apresoline) 25 mg Q6H PRN GT For High Blood Pressure 09/09/18 21:20 10/09/18 21:19 Insulin Aspart (NovoLOG) EVERY 6 HOURS SUBQ 09/10/18 12:00 10/10/18 06:29 09/13/18 05:18 Insulin Detemir (Levemir) 5 units DAILY SUBQ 09/10/18 09:00 10/04/18 08:59 09/13/18 08:28 Lactulose (Cephulac) 10 gm THREE TIMES A DAY GT 09/10/18 09:00 10/08/18 12:59 09/13/18 08:24 Losartan Potassium (Cozaar) 100 mg DAILY GT 09/10/18 09:00 10/04/18 08:59 09/13/18 08:24 Metoclopramide HCl (Reglan) 5 mg Q8H PRN IVP Nausea & Vomiting 09/10/18 09:00 10/10/18 08:59 Mineral Oil (Mineral Oil) 30 ml DAILYPRN PRN GT Constipation 09/09/18 21:21 10/09/18 21:20 Polyethylene Glycol (Miralax) 17 gm BEDTIME GT 09/10/18 21:00 10/06/18 20:59 09/12/18 20:14 Potassium Chloride 100 ml @ 100 mls/hr Q1HR IVPB 09/13/18 08:00 09/13/18 10:59 09/13/18 09:36 Sitagliptin Phosphate (Januvia) 100 mg DAILY GT 09/10/18 09:00 10/04/18 08:59 09/13/18 08:24 Vitamin D (Vitamin D) 1,000 intlu TWICE A DAY GT 09/10/18 09:00 10/04/18 08:59 09/13/18 08:24 Zinc Oxide (Desitin) 1 applic EVERY 8 HOURS TOPIC 09/10/18 14:00 10/08/18 10:29 09/13/18 05:17 Last 24 Hour Vital Signs Date Time Temp Pulse Resp B/P (MAP) Pulse Ox O2 Delivery O2 Flow Rate FiO2 09/13/18 08:24 124/53 09/13/18 08:00 97.9 82 16 124/53 (76) 95 09/13/18 07:10 62 18 100 Room Air 21 09/13/18 07:01 59 18 100 Room Air 09/13/18 04:00 98.0 82 18 135/67 (89) 99 09/13/18 04:00 Room Air 09/13/18 04:00 104 09/13/18 03:34 66 18 100 Room Air 21 09/13/18 03:24 65 18 98 Room Air 09/13/18 00:00 98.1 108 18 126/72 (90) 98 09/13/18 00:00 Room Air 09/12/18 23:49 73 18 97 Room Air 09/12/18 23:39 72 18 96 Room Air 21 09/12/18 23:34 92 09/12/18 20:00 Room Air 09/12/18 20:00 114 09/12/18 20:00 97.6 111 18 133/80 (97) 99 09/12/18 19:26 76 18 99 Room Air 21 09/12/18 19:16 78 20 98 Room Air 21 09/12/18 16:00 97.5 109 16 150/92 (111) 100 09/12/18 16:00 Room Air 09/12/18 15:42 70 18 98 Room Air 21 09/12/18 15:34 89 18 96 Room Air 21 09/12/18 15:23 99 09/12/18 12:00 97.9 59 19 149/66 (93) 96 09/12/18 12:00 Room Air 09/12/18 11:30 110 09/12/18 10:41 73 18 99 Room Air 21 09/12/18 10:35 92 16 95 Room Air 09/12/18 08:16 129/76 09/12/18 08:00 98.8 111 18 129/76 (93) 97 09/12/18 08:00 Room Air 09/12/18 07:50 108 09/12/18 06:46 75 20 97 Room Air 09/12/18 06:40 98 18 96 Room Air 09/12/18 04:00 97.8 97 20 120/83 (95) 96 09/12/18 04:00 Room Air 09/12/18 03:23 79 20 98 Room Air 09/12/18 03:23 95 09/12/18 03:13 75 20 97 Room Air 09/12/18 00:00 97.2 60 20 155/54 (87) 97 09/12/18 00:00 Room Air 09/11/18 23:27 99 09/11/18 23:03 97 18 99 Room Air 09/11/18 22:50 69 18 97 Room Air 21 09/11/18 20:00 Room Air 09/11/18 20:00 97.9 68 16 158/60 (92) 100 09/11/18 20:00 106 09/11/18 19:53 68 18 100 Room Air 21 09/11/18 19:39 62 18 97 Room Air 21 09/11/18 16:00 75 09/11/18 16:00 97.5 87 18 160/88 (112) 100 09/11/18 16:00 Room Air 09/11/18 15:33 90 20 100 Room Air 21 09/11/18 15:23 96 20 98 Room Air 21 09/11/18 12:00 98.6 90 17 152/72 (98) 97 09/11/18 12:00 Room Air 09/11/18 11:55 109 09/11/18 11:09 74 20 99 Room Air 21 09/11/18 10:55 91 20 97 Room Air 21 Intake and Output 09/12/18 09/13/18 19:00 07:00 Intake Total 500 ml 1175 ml Output Total 110 ml Balance 390 ml 1175 ml Intake Free Water 100 ml IV Total 400 ml 1175 ml Stool Total 110 ml # Voids 2 # Bowel Movements 1 Labs Test 09/12/18 03:40 09/13/18 03:41 White Blood Count 7.9 K/UL (4.8-10.8) 8.4 K/UL (4.8-10.8) Red Blood Count 3.89 M/UL (4.70-6.10) 3.93 M/UL (4.70-6.10) Hemoglobin 12.0 G/DL (14.2-18.0) 12.1 G/DL (14.2-18.0) Hematocrit 37.3 % (42.0-52.0) 37.3 % (42.0-52.0) Mean Corpuscular Volume 96 FL (80-99) 95 FL (80-99) Mean Corpuscular Hemoglobin 30.8 PG (27.0-31.0) 30.7 PG (27.0-31.0) Mean Corpuscular Hemoglobin Concent 32.0 G/DL (32.0-36.0) 32.4 G/DL (32.0-36.0) Red Cell Distribution Width 13.9 % (11.6-14.8) 14.1 % (11.6-14.8) Platelet Count 205 K/UL (150-450) 194 K/UL (150-450) Mean Platelet Volume 6.0 FL (6.5-10.1) 5.8 FL (6.5-10.1) Neutrophils (%) (Auto) 74.0 % (45.0-75.0) 72.9 % (45.0-75.0) Lymphocytes (%) (Auto) 16.2 % (20.0-45.0) 17.3 % (20.0-45.0) Monocytes (%) (Auto) 7.3 % (1.0-10.0) 7.4 % (1.0-10.0) Eosinophils (%) (Auto) 1.9 % (0.0-3.0) 1.9 % (0.0-3.0) Basophils (%) (Auto) 0.6 % (0.0-2.0) 0.5 % (0.0-2.0) Sodium Level 144 MMOL/L (136-145) 142 MMOL/L (136-145) Potassium Level 2.9 MMOL/L (3.5-5.1) 3.1 MMOL/L (3.5-5.1) Chloride Level 110 MMOL/L (98-107) 110 MMOL/L (98-107) Carbon Dioxide Level 27 MMOL/L (21-32) 28 MMOL/L (21-32) Anion Gap 7 mmol/L (5-15) 4 mmol/L (5-15) Blood Urea Nitrogen 14 mg/dL (7-18) 14 mg/dL (7-18) Creatinine 0.7 MG/DL (0.55-1.30) 0.7 MG/DL (0.55-1.30) Estimat Glomerular Filtration Rate mL/min (>60) mL/min (>60) Glucose Level 149 MG/DL (74-106) 132 MG/DL (74-106) Calcium Level 9.9 MG/DL (8.5-10.1) 10.0 MG/DL (8.5-10.1) Height (Feet): 5 Height (Inches): 8.00 Weight (Pounds): 175 Objective Gen: well appearing, no apparent distress, alert Head: normocephalic EENT: PERRL/EOMI, normal ENT inspection Pulm: normal breath sounds, no respiratory distress CV: rrr. no mgr GI: normal inspection, non tender, soft, normal bowel sounds, non-distended ++ gtube Rectal: deferred Gu: deferred Musculoskeletal: normal inspection, back normal Neurologic: normal inspection, alert, oriented x3, responsive Psychiatric: normal inspection, judgement/insight normal, memory normal Skin: normal inspection, normal color, no rash, warm/dry, palpation normal, well hydrated Fadi Vicente MD Sep 13, 2018 10:12
--- NOTE | 2018-09-13 11:00 | NUR ---
NURSE NOTES: bladder scan was done, resulted to 542 ml. will continue to monitor.
[2018-09-13 12:00] VITALS: BP 149/75
--- NOTE | 2018-09-13 12:29 | NUR ---
NURSE NOTES: left a message to dr crowell that this patient is retaining urine, and unable to insert a johnston cath since yesterday. awaits callback and new order.
--- NOTE | 2018-09-13 14:14 | General Progress Note ---
Assessment/Plan Problem List: (1) Atrial fibrillation and flutter ICD Codes: I48.91 - Unspecified atrial fibrillation; I48.92 - Unspecified atrial flutter SNOMED: 135360698 (2) CHF (congestive heart failure) ICD Codes: I50.9 - Heart failure, unspecified SNOMED: 27746915 (3) Pancreatitis ICD Codes: K85.90 - Acute pancreatitis without necrosis or infection, unspecified SNOMED: 25731967 (4) CVA (cerebral vascular accident) ICD Codes: I63.9 - CVA (cerebral vascular accident) SNOMED: 744858399 (5) Abdominal distension ICD Codes: R14.0 - Abdominal distension (gaseous) SNOMED: 49275227 (6) Umbilical hernia ICD Codes: K42.9 - Umbilical hernia without obstruction or gangrene SNOMED: 242676200 Qualifiers: Qualified Codes: K42.9 - Umbilical hernia without obstruction or gangrene Status: unchanged Assessment/Plan: liver mass abdominal distention episodic hypertension and tachycardia abdominal distention, slightly improved PLAN GI follow up and upgrade diet as able general surgery reviewed and noted monitor for change and recommend liver masses previously - defer biopsy monitor TF and resume when able on IV hydration for now not yet stable for snf; will discuss with consultants impression, plan, and exam edited and reviewed in detail care discussed with RN Subjective ROS Limited/Unobtainable: Yes Allergies: Coded Allergies: No Known Allergies (Verified , 06/07/08) Subjective vitals reviewed STILL NPO as of this am GT care noted low K NOTED care noted and reviewed Objective Last 24 Hour Vital Signs Date Time Temp Pulse Resp B/P (MAP) Pulse Ox O2 Delivery O2 Flow Rate FiO2 09/13/18 14:07 69 18 98 Room Air 21 09/13/18 12:00 Room Air 09/13/18 12:00 97.5 106 16 149/75 (99) 95 09/13/18 12:00 118 09/13/18 10:53 64 20 100 Room Air 21 09/13/18 10:45 67 18 98 Room Air 21 09/13/18 08:24 124/53 09/13/18 08:00 Room Air 09/13/18 08:00 97.9 82 16 124/53 (76) 95 09/13/18 07:50 107 09/13/18 07:10 62 18 100 Room Air 21 09/13/18 07:01 59 18 100 Room Air 09/13/18 04:00 98.0 82 18 135/67 (89) 99 09/13/18 04:00 Room Air 09/13/18 04:00 104 09/13/18 03:34 66 18 100 Room Air 21 09/13/18 03:24 65 18 98 Room Air 09/13/18 00:00 98.1 108 18 126/72 (90) 98 09/13/18 00:00 Room Air 09/12/18 23:49 73 18 97 Room Air 21 09/12/18 23:39 72 18 96 Room Air 09/12/18 23:34 92 09/12/18 20:00 Room Air 09/12/18 20:00 114 09/12/18 20:00 97.6 111 18 133/80 (97) 99 09/12/18 19:26 76 18 99 Room Air 09/12/18 19:16 78 20 98 Room Air 09/12/18 16:00 97.5 109 16 150/92 (111) 100 09/12/18 16:00 Room Air 09/12/18 15:42 70 18 98 Room Air 09/12/18 15:34 89 18 96 Room Air 09/12/18 15:23 99 Intake and Output 09/12/18 09/13/18 19:00 07:00 Intake Total 500 ml 1175 ml Output Total 110 ml Balance 390 ml 1175 ml Intake Free Water 100 ml IV Total 400 ml 1175 ml Stool Total 110 ml # Voids 2 # Bowel Movements 1 Laboratory Tests 09/13/18 03:41: White Blood Count 8.4, Red Blood Count 3.93L, Hemoglobin 12.1L, Hematocrit 37.3L , Mean Corpuscular Volume 95, Mean Corpuscular Hemoglobin 30.7, Mean Corpuscular Hemoglobin Concent 32.4, Red Cell Distribution Width 14.1, Platelet Count 194, Mean Platelet Volume 5.8L, Neutrophils (%) (Auto) 72.9, Lymphocytes ( %) (Auto) 17.3L, Monocytes (%) (Auto) 7.4, Eosinophils (%) (Auto) 1.9, Basophils (%) (Auto) 0.5, Sodium Level 142, Potassium Level 3.1L, Chloride Level 110H, Carbon Dioxide Level 28, Anion Gap 4L, Blood Urea Nitrogen 14, Creatinine 0.7, Estimat Glomerular Filtration Rate , Glucose Level 132H, Calcium Level 10.0 Height (Feet): 5 Height (Inches): 8.00 Weight (Pounds): 175 Objective WDWN NAD reduced breath sounds bilaterally without rhonchi or wheeze [id number] without MRG NABS noted some distention;Gt in place no CCE nonfocal skin exam noted confused, very reviewed and examined Dustin Mary MD Sep 13, 2018 14:14
--- NOTE | 2018-09-13 15:39 | NUR ---
NURSE NOTES: patient is on bed awake with the RT. not in acute distress. stable for now. will continue to monitor.
[2018-09-13 16:00] VITALS: BP 149/57
--- NOTE | 2018-09-13 17:08 | NUR ---
NURSE NOTES: bladder scan was done resulted to 137. will keep on monitoring.
--- NOTE | 2018-09-13 17:42 | NUR ---
NURSE NOTES: left a message to dr coronel regarding this patient that dr crowell has'nt called back yet regarding the message that was left this afternoon, that RNs were unable to insert a FC and that bladder retention was 500ml in the AM and 137ml just @ 1700. awaits callback and new order as of this time.
--- NOTE | 2018-09-13 19:12 | NUR ---
HAND-OFF: Report given to maricruz hernandez.
--- NOTE | 2018-09-13 19:15 | NUR ---
NURSE NOTES: Received patient from ISMAEL SHEN. Will continue plan of care.
[2018-09-13 20:00] VITALS: BP 133/71
[2018-09-13] MEDS: Miralax 17gm pkt GT SCH (21:38)
[2018-09-13] MEDS: Donepezil 10mg tab GT SCH (21:38)
[2018-09-14] VITALS: BP 114/64
[2018-09-14] MEDS: D5 1/2NS 1,000 ML IV SCH (03:00)
[2018-09-14] MEDS: Albuterol ud Inhalation HHN SCH ×5 (03:35→19:52)
[2018-09-14 04:00] VITALS: BP 147/66
[2018-09-14] MEDS: Desitin Rash Paste TOPIC SCH ×3 (05:49→21:14)
[2018-09-14] MEDS: NovoLOG Insulin Flexpen SUBQ SCH ×3 (05:50→17:43)
[2018-09-14 06:15] LABS: BASOPHILS % (AUTO) 0.4 % (0.0-2.0); EOSINOPHILS % (AUTO) 0.3 % (0.0-3.0); HEMATOCRIT 36.4 % (42.0-52.0); HEMOGLOBIN 11.8 G/DL (14.2-18.0); LYMPHOCYTES % (AUTO) 8.9 % (20.0-45.0); MEAN CORPUSCULAR VOLUME 95 FL (80-99); MONOCYTES % (AUTO) 6.8 % (1.0-10.0); NEUTROPHILS % (AUTO) 83.7 % (45.0-75.0); PLATELET COUNT 201 K/UL (150-450); RED BLOOD COUNT 3.85 M/UL (4.70-6.10); RED CELL DISTRIBUTION WIDTH 14.2 % (11.6-14.8); WHITE BLOOD COUNT 14.3 K/UL (4.8-10.8)
[2018-09-14 06:24] LABS: ANION GAP 8 mmol/L (5-15); BLOOD UREA NITROGEN 16 mg/dL (7-18); CALCIUM 9.9 MG/DL (8.5-10.1); CARBON DIOXIDE 25 MMOL/L (21-32); CHLORIDE 106 MMOL/L (98-107); CREATININE 0.8 MG/DL (0.55-1.30); POTASSIUM 3.7 MMOL/L (3.5-5.1); SODIUM 139 MMOL/L (136-145)
--- NOTE | 2018-09-14 07:06 | NUR ---
HAND-OFF: Report given to ISMAEL SHEN.
--- NOTE | 2018-09-14 07:06 | NUR ---
NURSE NOTES: received patient report from maricruz hernandez. patient is on bed awake with the RT. not in acute distress. bed is low and locked for safety. will follow plan of care.
--- NOTE | 2018-09-14 07:53 | General Progress Note ---
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 SNOMED: 581545777, 250708190, 197195122 (2) Anemia ICD Codes: D64.9 - Anemia, unspecified SNOMED: 700565174 (3) Liver mass ICD Codes: R16.0 - Hepatomegaly, not elsewhere classified SNOMED: 553621705 (4) Fecal impaction ICD Codes: K56.41 - Fecal impaction SNOMED: 39867813 (5) CVA (cerebral vascular accident) ICD Codes: I63.9 - CVA (cerebral vascular accident) SNOMED: 387309646 (6) CHF (congestive heart failure) ICD Codes: I50.9 - Heart failure, unspecified SNOMED: 18763387 (7) Atrial fibrillation and flutter ICD Codes: I48.91 - Unspecified atrial fibrillation; I48.92 - Unspecified atrial flutter SNOMED: 528581277 (8) Constipation ICD Codes: K59.00 - Constipation, unspecified SNOMED: 24644627 Qualifiers: Qualified Codes: K59.00 - Constipation, unspecified (9) Abdominal distension ICD Codes: R14.0 - Abdominal distension (gaseous) SNOMED: 11614626 Status: unchanged Assessment/Plan: KUB ordered for abdominal distention >> no acute process had multiple BM GT was changed at the bedside G-tube feedings Reglan low dose Monitor H&H, PRN transfusions Turn patient every 2 hours bowel regimen abd us to eval for large ascites Subjective ROS Limited/Unobtainable: No Allergies: Coded Allergies: No Known Allergies (Verified , 06/07/08) Subjective had rapid response yesterday ? aspirated elevated GT residuals Objective Last 24 Hour Vital Signs Date Time Temp Pulse Resp B/P (MAP) Pulse Ox O2 Delivery O2 Flow Rate FiO2 09/14/18 07:04 64 20 100 Room Air 21 09/14/18 06:58 63 20 96 Room Air 09/14/18 04:00 99.1 65 24 147/66 (93) 95 09/14/18 04:00 Room Air 09/14/18 03:47 70 18 100 Room Air 09/14/18 03:44 99 09/14/18 03:37 72 18 96 Room Air 21 09/14/18 00:00 99.6 76 24 114/64 (81) 96 09/14/18 00:00 Room Air 09/13/18 23:36 86 09/13/18 23:24 74 18 98 Room Air 21 09/13/18 23:10 71 18 96 Room Air 21 09/13/18 20:00 72 20 100 Room Air 21 09/13/18 20:00 99.1 66 18 133/71 (91) 99 09/13/18 20:00 Room Air 09/13/18 19:50 69 18 99 Room Air 21 09/13/18 19:38 116 09/13/18 16:00 97.9 87 18 149/57 (87) 95 09/13/18 16:00 Room Air 09/13/18 15:42 126 09/13/18 14:17 69 20 100 Room Air 21 09/13/18 14:07 69 18 98 Room Air 09/13/18 12:00 Room Air 09/13/18 12:00 97.5 106 16 149/75 (99) 95 09/13/18 12:00 118 09/13/18 10:53 64 20 100 Room Air 09/13/18 10:45 67 18 98 Room Air 21 09/13/18 08:24 124/53 09/13/18 08:00 Room Air 09/13/18 08:00 97.9 82 16 124/53 (76) 95 Intake and Output 09/13/18 09/14/18 18:59 06:59 Intake Total 1580 ml 1511.79 ml Output Total 100 ml Balance 1580 ml 1411.79 ml Intake Free Water 40 ml 150 ml IV Total 1400 ml 961.79 ml Tube Feeding 140 ml 300 ml Other 100 ml Output Urine Total 100 ml # Voids 3 # Bowel Movements 5 4 Laboratory Tests 09/14/18 05:13: White Blood Count 14.3#H, Red Blood Count 3.85L, Hemoglobin 11.8L, Hematocrit 36.4L, Mean Corpuscular Volume 95, Mean Corpuscular Hemoglobin 30.8, Mean Corpuscular Hemoglobin Concent 32.5, Red Cell Distribution Width 14.2, Platelet Count 201, Mean Platelet Volume 5.9L, Neutrophils (%) (Auto) 83.7H, Lymphocytes (%) (Auto) 8.9L, Monocytes (%) (Auto) 6.8, Eosinophils (%) (Auto) 0.3, Basophils (%) (Auto) 0.4, Sodium Level 139, Potassium Level 3.7, Chloride Level 106, Carbon Dioxide Level 25, Anion Gap 8, Blood Urea Nitrogen 16, Creatinine 0.8, Estimat Glomerular Filtration Rate , Glucose Level 190H, Calcium Level 9.9 Height (Feet): 5 Height (Inches): 8.00 Weight (Pounds): 175 General Appearance: lethargic EENT: normal ENT inspection Neck: supple Cardiovascular: normal rate Respiratory/Chest: decreased breath sounds Abdomen: soft, hypoactive bowel sounds, distended Extremities: non-tender Demetris Gonzales MD Sep 14, 2018 07:53
[2018-09-14 08:00] VITALS: BP 156/79
[2018-09-14] MEDS: Losartan 50mg tab GT SCH (08:15)
[2018-09-14] MEDS: Heparin 5000 units/ml inj SUBQ SCH ×2 (08:15→21:12)
[2018-09-14] MEDS: Docusate 100mg/10ml Liq GT SCH ×2 (08:15→17:42)
[2018-09-14] MEDS: Vitamin D 1000 IU Tab GT SCH ×2 (08:15→17:42)
[2018-09-14] MEDS: Lactulose 10gm/15ml UDC GT SCH ×3 (08:15→17:42)
[2018-09-14] MEDS: Levemir Flexpen SUBQ SCH (08:21)
[2018-09-14] MEDS ORDERED: Tubing IV Secondary IV ONE (08:54)
[2018-09-14] MEDS ORDERED: D5NS 1000ml IV ONE (08:54)
[2018-09-14] MEDS ORDERED: D5 1/2NS 1000ml IV ONE (08:54)
[2018-09-14] MEDS ORDERED: NS 275ml ONE (08:54)
--- NOTE | 2018-09-14 08:59 | General Progress Note ---
Assessment/Plan Problem List: (1) Atrial fibrillation and flutter ICD Codes: I48.91 - Unspecified atrial fibrillation; I48.92 - Unspecified atrial flutter SNOMED: 865551783 (2) CHF (congestive heart failure) ICD Codes: I50.9 - Heart failure, unspecified SNOMED: 67700709 (3) Pancreatitis ICD Codes: K85.90 - Acute pancreatitis without necrosis or infection, unspecified SNOMED: 77986125 (4) CVA (cerebral vascular accident) ICD Codes: I63.9 - CVA (cerebral vascular accident) SNOMED: 861546375 (5) Abdominal distension ICD Codes: R14.0 - Abdominal distension (gaseous) SNOMED: 99415126 (6) Umbilical hernia ICD Codes: K42.9 - Umbilical hernia without obstruction or gangrene SNOMED: 002466371 Qualifiers: Qualified Codes: K42.9 - Umbilical hernia without obstruction or gangrene Status: unchanged Assessment/Plan: liver mass abdominal distention episodic hypertension and tachycardia abdominal distention, slightly improved urinary retention PLAN GI follow up - feeds noted general surgery reviewed and noted monitor for change and recommend liver masses previously - defer biopsy monitor TF and resume when able dc iv hydration check abdominal US for ascites urology noted not yet stable for snf; will discuss with consultants impression, plan, and exam edited and reviewed in detail care discussed with RN Subjective ROS Limited/Unobtainable: Yes Allergies: Coded Allergies: No Known Allergies (Verified , 06/07/08) Subjective vitals reviewed GT change noted care noted and reviewed Objective Last 24 Hour Vital Signs Date Time Temp Pulse Resp B/P (MAP) Pulse Ox O2 Delivery O2 Flow Rate FiO2 09/14/18 08:15 156/79 09/14/18 08:00 98.8 84 20 156/79 (104) 96 09/14/18 07:04 64 20 100 Room Air 21 09/14/18 06:58 63 20 96 Room Air 21 09/14/18 04:00 99.1 65 24 147/66 (93) 95 09/14/18 04:00 Room Air 09/14/18 03:47 70 18 100 Room Air 21 09/14/18 03:44 99 09/14/18 03:37 72 18 96 Room Air 21 09/14/18 00:00 99.6 76 24 114/64 (81) 96 09/14/18 00:00 Room Air 09/13/18 23:36 86 09/13/18 23:24 74 18 98 Room Air 21 09/13/18 23:10 71 18 96 Room Air 21 09/13/18 20:00 72 20 100 Room Air 21 09/13/18 20:00 99.1 66 18 133/71 (91) 99 09/13/18 20:00 Room Air 09/13/18 19:50 69 18 99 Room Air 21 09/13/18 19:38 116 09/13/18 16:00 97.9 87 18 149/57 (87) 95 09/13/18 16:00 Room Air 09/13/18 15:42 126 09/13/18 14:17 69 20 100 Room Air 21 09/13/18 14:07 69 18 98 Room Air 21 09/13/18 12:00 Room Air 09/13/18 12:00 97.5 106 16 149/75 (99) 95 09/13/18 12:00 118 09/13/18 10:53 64 20 100 Room Air 21 09/13/18 10:45 67 18 98 Room Air 21 Intake and Output 09/13/18 09/14/18 18:59 06:59 Intake Total 1580 ml 1511.79 ml Output Total 100 ml Balance 1580 ml 1411.79 ml Intake Free Water 40 ml 150 ml IV Total 1400 ml 961.79 ml Tube Feeding 140 ml 300 ml Other 100 ml Output Urine Total 100 ml # Voids 3 # Bowel Movements 5 4 Laboratory Tests 09/14/18 05:13: White Blood Count 14.3#H, Red Blood Count 3.85L, Hemoglobin 11.8L, Hematocrit 36.4L, Mean Corpuscular Volume 95, Mean Corpuscular Hemoglobin 30.8, Mean Corpuscular Hemoglobin Concent 32.5, Red Cell Distribution Width 14.2, Platelet Count 201, Mean Platelet Volume 5.9L, Neutrophils (%) (Auto) 83.7H, Lymphocytes (%) (Auto) 8.9L, Monocytes (%) (Auto) 6.8, Eosinophils (%) (Auto) 0.3, Basophils (%) (Auto) 0.4, Sodium Level 139, Potassium Level 3.7, Chloride Level 106, Carbon Dioxide Level 25, Anion Gap 8, Blood Urea Nitrogen 16, Creatinine 0.8, Estimat Glomerular Filtration Rate , Glucose Level 190H, Calcium Level 9.9 Height (Feet): 5 Height (Inches): 8.00 Weight (Pounds): 175 Objective WDWN NAD reduced breath sounds bilaterally without rhonchi or wheeze [id number] without MRG NABS noted some distention;Gt in place no CCE nonfocal skin exam noted confused, very reviewed and examined Dustin Mary MD Sep 14, 2018 08:59
--- NOTE | 2018-09-14 10:07 | Hematology/Onc Progress Note ---
Assessment/Plan Assessment/Plan Assessment and Recs # Liver mass - large heterogeneous mass in the right lobe of the liver suspicious for malignant neoplasm --> imaging has been reviewed and c/w likely malignancy --> as per Gi recs, have cancelled tumor biopsy, has been present prior admission --> treatment once have results of primary --> imaging as needed r/o ascites # Anemia of chronic disease due to underlying chronic medical issues, multifactorial --> Anemia workup has been ordered, rule out gi bleed, ferritin is 118 --> No evidence of hemolysis is noted, peripheral smear has been reviewed. --> Hgb goal >7. Transfuse prn. --> Epogen or iron at this time is not particularly indicated --> Medications have been reviewed --> improved trend 10-->11-->12-->11.8 # Hypercalcemia - on admission elev, due to likely dehydration --> Ca has improved, on ivf --> on IVF also for hypernatremia # Fecal impaction --> on colace, senna as per gi # Constipation --> stool softeners per gi # Abdominal distension The timing of this note does not necessarily reflect the time of the patient was seen. GREATLY APPRECIATE CONSULTATION. Subjective Constitutional: Denies: no symptoms, chills, fever, malaise, weakness, other HEENT: Denies: no symptoms, eye pain, blurred vision, tearing, double vision, ear pain, ear discharge, nose pain, nose congestion, throat pain, throat swelling, mouth pain, mouth swelling, other Cardiovascular: Denies: no symptoms, chest pain, edema, irregular heart rate, lightheadedness, palpitations, syncope, other Respiratory: Denies: no symptoms, cough, shortness of breath, SOB with excertion, SOB at rest, sputum, wheezing, other Gastrointestinal/Abdominal: Denies: no symptoms, abdomen distended, abdominal pain, black stools, tarry stools, blood in stool, constipated, diarrhea, difficulty swallowing, nausea, poor appetite, poor fluid intake, rectal bleeding , vomiting, other Genitourinary: Denies: no symptoms, burning, discharge, frequency, flank pain, hematuria, incontinence, pain, urgency, other Neurologic/Psychiatric: Denies: no symptoms, anxiety, depressed, emotional problems, headache, numbness, paresthesia, pre-existing deficit, seizure, tingling, tremors, weakness, other Endocrine: Denies: no symptoms, excessive sweating, flushing, intolerance to cold, intolerance to heat, increased hunger, increased thirst, increased urine, unexplained weight gain, unexplained weight loss, other Allergies: Coded Allergies: No Known Allergies (Verified , 06/07/08) Subjective 09/10: no bleeding, no night sweats, no events otherwise, labs pending 09/11: liver biopsy cancelled, no events, tumor markers neg 09/12: no events, no bleeding, h/h reviewed, no f/c 09/13: patient being turned every 2 hrs, seen by gi 09/14: no events, still with abd pain, imaging per gi Objective Objective Current Medications Medications (Trade) Dose Ordered Sig/Reagan Route PRN Reason Start Time Stop Time Status Last Admin Dose Admin Acetaminophen (Tylenol) 650 mg Q4H PRN GT Mild Pain/Temp > 100.5 09/09/18 21:19 10/09/18 21:18 Albuterol Sulfate (Proventil) 2.5 mg Q4HRT HHN 09/09/18 23:00 09/14/18 22:59 09/14/18 06:58 Atorvastatin Calcium (Lipitor) 10 mg BEDTIME GT 09/10/18 21:00 10/04/18 20:59 09/13/18 21:38 Dextrose (Dextrose 50%) 25 ml Q30M PRN IV Hypoglycemia 09/09/18 21:30 10/03/18 21:29 Dextrose (Dextrose 50%) 50 ml Q30M PRN IV Hypoglycemia 09/09/18 21:30 10/03/18 21:29 Docusate Sodium (Colace) 100 mg BID GT 09/10/18 09:00 10/04/18 08:59 09/13/18 08:24 Donepezil HCl (Aricept) 10 mg BEDTIME GT 09/10/18 21:00 10/04/18 20:59 09/13/18 21:38 Heparin Sodium (Porcine) (Heparin 5000 units/ml) 5,000 units EVERY 12 HOURS SUBQ 09/10/18 09:00 10/04/18 08:59 09/13/18 21:39 Hydralazine HCl (Apresoline) 25 mg Q6H PRN GT For High Blood Pressure 09/09/18 21:20 10/09/18 21:19 Insulin Aspart (NovoLOG) EVERY 6 HOURS SUBQ 09/10/18 12:00 10/10/18 06:29 09/14/18 05:50 Insulin Detemir (Levemir) 5 units DAILY SUBQ 09/10/18 09:00 10/04/18 08:59 09/14/18 08:21 Lactulose (Cephulac) 10 gm THREE TIMES A DAY GT 09/10/18 09:00 10/08/18 12:59 09/13/18 08:24 Losartan Potassium (Cozaar) 100 mg DAILY GT 09/10/18 09:00 10/04/18 08:59 09/14/18 08:15 Metoclopramide HCl (Reglan) 5 mg Q8H PRN IVP Nausea & Vomiting 09/10/18 09:00 10/10/18 08:59 Mineral Oil (Mineral Oil) 30 ml DAILYPRN PRN GT Constipation 09/09/18 21:21 10/09/18 21:20 Polyethylene Glycol (Miralax) 17 gm BEDTIME GT 09/10/18 21:00 10/06/18 20:59 09/13/18 21:38 Sitagliptin Phosphate (Januvia) 100 mg DAILY GT 09/10/18 09:00 10/04/18 08:59 09/14/18 08:15 Vitamin D (Vitamin D) 1,000 intlu TWICE A DAY GT 09/10/18 09:00 10/04/18 08:59 09/14/18 08:15 Zinc Oxide (Desitin) 1 applic EVERY 8 HOURS TOPIC 09/10/18 14:00 10/08/18 10:29 09/14/18 05:49 Last 24 Hour Vital Signs Date Time Temp Pulse Resp B/P (MAP) Pulse Ox O2 Delivery O2 Flow Rate FiO2 09/14/18 08:15 156/79 09/14/18 08:00 Room Air 09/14/18 08:00 98.8 84 20 156/79 (104) 96 09/14/18 07:45 94 09/14/18 07:04 64 20 100 Room Air 21 09/14/18 06:58 63 20 96 Room Air 21 09/14/18 04:00 99.1 65 24 147/66 (93) 95 09/14/18 04:00 Room Air 09/14/18 03:47 70 18 100 Room Air 09/14/18 03:44 99 09/14/18 03:37 72 18 96 Room Air 21 09/14/18 00:00 99.6 76 24 114/64 (81) 96 09/14/18 00:00 Room Air 09/13/18 23:36 86 09/13/18 23:24 74 18 98 Room Air 21 09/13/18 23:10 71 18 96 Room Air 21 09/13/18 20:00 72 20 100 Room Air 21 09/13/18 20:00 99.1 66 18 133/71 (91) 99 09/13/18 20:00 Room Air 09/13/18 19:50 69 18 99 Room Air 09/13/18 19:38 116 09/13/18 16:00 97.9 87 18 149/57 (87) 95 09/13/18 16:00 Room Air 09/13/18 15:42 126 09/13/18 14:17 69 20 100 Room Air 21 09/13/18 14:07 69 18 98 Room Air 21 09/13/18 12:00 Room Air 09/13/18 12:00 97.5 106 16 149/75 (99) 95 09/13/18 12:00 118 09/13/18 10:53 64 20 100 Room Air 09/13/18 10:45 67 18 98 Room Air 09/13/18 08:24 124/53 09/13/18 08:00 Room Air 09/13/18 08:00 97.9 82 16 124/53 (76) 95 09/13/18 07:50 107 09/13/18 07:10 62 18 100 Room Air 09/13/18 07:01 59 18 100 Room Air 09/13/18 04:00 98.0 82 18 135/67 (89) 99 09/13/18 04:00 Room Air 09/13/18 04:00 104 09/13/18 03:34 66 18 100 Room Air 21 09/13/18 03:24 65 18 98 Room Air 21 09/13/18 00:00 98.1 108 18 126/72 (90) 98 09/13/18 00:00 Room Air 09/12/18 23:49 73 18 97 Room Air 21 09/12/18 23:39 72 18 96 Room Air 21 09/12/18 23:34 92 09/12/18 20:00 Room Air 09/12/18 20:00 114 09/12/18 20:00 97.6 111 18 133/80 (97) 99 09/12/18 19:26 76 18 99 Room Air 21 09/12/18 19:16 78 20 98 Room Air 21 09/12/18 16:00 97.5 109 16 150/92 (111) 100 09/12/18 16:00 Room Air 09/12/18 15:42 70 18 98 Room Air 21 09/12/18 15:34 89 18 96 Room Air 21 09/12/18 15:23 99 09/12/18 12:00 97.9 59 19 149/66 (93) 96 09/12/18 12:00 Room Air 09/12/18 11:30 110 09/12/18 10:41 73 18 99 Room Air 21 09/12/18 10:35 92 16 95 Room Air 21 Intake and Output 09/13/18 09/14/18 18:59 06:59 Intake Total 1580 ml 1511.79 ml Output Total 100 ml Balance 1580 ml 1411.79 ml Intake Free Water 40 ml 150 ml IV Total 1400 ml 961.79 ml Tube Feeding 140 ml 300 ml Other 100 ml Output Urine Total 100 ml # Voids 3 # Bowel Movements 5 4 Labs Test 09/12/18 03:40 09/13/18 03:41 09/14/18 05:13 White Blood Count 7.9 K/UL (4.8-10.8) 8.4 K/UL (4.8-10.8) 14.3 K/UL (4.8-10.8) Red Blood Count 3.89 M/UL (4.70-6.10) 3.93 M/UL (4.70-6.10) 3.85 M/UL (4.70-6.10) Hemoglobin 12.0 G/DL (14.2-18.0) 12.1 G/DL (14.2-18.0) 11.8 G/DL (14.2-18.0) Hematocrit 37.3 % (42.0-52.0) 37.3 % (42.0-52.0) 36.4 % (42.0-52.0) Mean Corpuscular Volume 96 FL (80-99) 95 FL (80-99) 95 FL (80-99) Mean Corpuscular Hemoglobin 30.8 PG (27.0-31.0) 30.7 PG (27.0-31.0) 30.8 PG (27.0-31.0) Mean Corpuscular Hemoglobin Concent 32.0 G/DL (32.0-36.0) 32.4 G/DL (32.0-36.0) 32.5 G/DL (32.0-36.0) Red Cell Distribution Width 13.9 % (11.6-14.8) 14.1 % (11.6-14.8) 14.2 % (11.6-14.8) Platelet Count 205 K/UL (150-450) 194 K/UL (150-450) 201 K/UL (150-450) Mean Platelet Volume 6.0 FL (6.5-10.1) 5.8 FL (6.5-10.1) 5.9 FL (6.5-10.1) Neutrophils (%) (Auto) 74.0 % (45.0-75.0) 72.9 % (45.0-75.0) 83.7 % (45.0-75.0) Lymphocytes (%) (Auto) 16.2 % (20.0-45.0) 17.3 % (20.0-45.0) 8.9 % (20.0-45.0) Monocytes (%) (Auto) 7.3 % (1.0-10.0) 7.4 % (1.0-10.0) 6.8 % (1.0-10.0) Eosinophils (%) (Auto) 1.9 % (0.0-3.0) 1.9 % (0.0-3.0) 0.3 % (0.0-3.0) Basophils (%) (Auto) 0.6 % (0.0-2.0) 0.5 % (0.0-2.0) 0.4 % (0.0-2.0) Sodium Level 144 MMOL/L (136-145) 142 MMOL/L (136-145) 139 MMOL/L (136-145) Potassium Level 2.9 MMOL/L (3.5-5.1) 3.1 MMOL/L (3.5-5.1) 3.7 MMOL/L (3.5-5.1) Chloride Level 110 MMOL/L (98-107) 110 MMOL/L (98-107) 106 MMOL/L (98-107) Carbon Dioxide Level 27 MMOL/L (21-32) 28 MMOL/L (21-32) 25 MMOL/L (21-32) Anion Gap 7 mmol/L (5-15) 4 mmol/L (5-15) 8 mmol/L (5-15) Blood Urea Nitrogen 14 mg/dL (7-18) 14 mg/dL (7-18) 16 mg/dL (7-18) Creatinine 0.7 MG/DL (0.55-1.30) 0.7 MG/DL (0.55-1.30) 0.8 MG/DL (0.55-1.30) Estimat Glomerular Filtration Rate mL/min (>60) mL/min (>60) mL/min (>60) Glucose Level 149 MG/DL (74-106) 132 MG/DL (74-106) 190 MG/DL (74-106) Calcium Level 9.9 MG/DL (8.5-10.1) 10.0 MG/DL (8.5-10.1) 9.9 MG/DL (8.5-10.1) Height (Feet): 5 Height (Inches): 8.00 Weight (Pounds): 175 Objective Gen: well appearing, no apparent distress, alert Head: normocephalic EENT: PERRL/EOMI, normal ENT inspection Pulm: normal breath sounds, no respiratory distress CV: rrr. no mgr GI: normal inspection, non tender, soft, normal bowel sounds, non-distended ++ gtube Rectal: deferred Gu: deferred Musculoskeletal: normal inspection, back normal Neurologic: normal inspection, alert, oriented x3, responsive Psychiatric: normal inspection, judgement/insight normal, memory normal Skin: normal inspection, normal color, no rash, warm/dry, palpation normal, well hydrated Fadi Vicente MD Sep 14, 2018 10:07
--- NOTE | 2018-09-14 11:32 | General Progress Note ---
Progress Note Progress Note comfortable stable exam improved abd less distended having BMs cont current care Jesse Cash Sep 14, 2018 11:32
[2018-09-14 12:00] VITALS: BP 148/55
--- NOTE | 2018-09-14 13:04 | NUR ---
CASE MANAGEMENT: REVIEW 09/14/2018 SI:UMBILICAL HERNIA. T 98.8 HR 84 RR 20 B/P 156/79 SATS 96% ON RA WBC 14.3 GLU 190 IS:INSULIN ASPART SUBQ Q6H LIPITOR GT QHS ARICEPT GT QHS LEVEMIR SUBQ QD COZAAR GT QD JANUVIA GT QD SDU PLAN OF CARE: US ABD
[2018-09-14 16:00] VITALS: BP 149/58
--- NOTE | 2018-09-14 16:15 | Consultation ---
DATE OF CONSULTATION: UROLOGY CONSULTATION CHIEF COMPLAINT/HISTORY OF PRESENT ILLNESS: I was asked by Dr. Mary to evaluate this 77-year-old gentleman regarding a history of possible urinary retention and inability of staff to pass a catheter. Briefly, the patient has a history of multiple medical issues. He was admitted from an outside facility with abdominal distention and noted to have some evidence of fecal impaction. He has Alzheimer's dementia and cannot provide much information. He has a possible history of BPH. He has been urinating some, but staff was concerned with bladder scans that were high that the patient may be retaining. As such, I was asked to evaluate the patient. PAST MEDICAL HISTORY: 1. Dementia. 2. CVA. 3. CHF. 4. Hypertensive heart disease. 5. Atrial fibrillation. 6. Diabetes mellitus. 7. Anemia. 8. Pancreatitis. 9. Dysphagia. PAST SURGICAL HISTORY: 1. G-tube placement. 2. Pacemaker placement. Otherwise unknown. MEDICATIONS: Please see the chart for current medications and administration details. ALLERGIES: No known drug allergies. SOCIAL HISTORY: Unobtainable as the patient cannot cooperate with questioning. FAMILY HISTORY: Unobtainable. REVIEW OF SYSTEMS: A 14-system review of systems cannot be done as the patient cannot cooperate with questioning. PHYSICAL EXAMINATION: GENERAL: The patient is an elderly gentleman, resting comfortably, awake and alert, not oriented, and in no obvious distress. HEENT: NC/AT. Extraocular muscles intact. Neck is supple. Oropharynx clear. CHEST: Within normal limits. ABDOMEN: Soft and obese. G-tube site clean, dry, and intact. EXTREMITIES: Warm and well perfused. No cyanosis, clubbing, or edema. BACK: No CVA tenderness to percussion appreciable. NEUROLOGIC: Notable for dementia. The patient cannot really cooperate with the remainder of the exam. GENITOURINARY: Reveals an uncircumcised male phallus with significant phimosis. There is psme-qf-chocfwab penoscrotal edema as well. There are bilateral descended testes and cord structures. No masses or tenderness to palpation. LABORATORY DATA: White blood cell count 14.3, hematocrit 36.4, and platelets 201,000. PT 9.9, INR 0.9, and PTT 30. Sodium 139, potassium 3.7, chloride 106, bicarbonate 25, BUN 16, creatinine 0.8, and glucose 190. Calcium 9.9. Urinalysis, specific gravity 1.005, pH 7.0. Dip test notable for 1+ protein. Microanalysis essentially unremarkable. DIAGNOSTIC IMAGING: CT scan of the abdomen and pelvis reveals a large heterogenous mass in the right lobe of the liver suspicious for malignant neoplasm. There is abnormal sclerosis of T9 vertebrae and a collapsed fused T11-T12 vertebrae. There is development of ascites. There is a small pericardial effusion. There is a gastrostomy. The bladder is unremarkable. The kidneys are unremarkable. ASSESSMENT AND PLAN: In summary, the patient is a 77-year-old gentleman with a history of multiple medical issues presenting with abdominal distention. Staff attempted to pass a catheter when there was concern for urinary retention. However, this was difficult due to the patient's phimosis and possible BPH. Physical exam reveals an elderly gentleman with some abdominal distention and what appears to be ascites along with penoscrotal edema and phimosis. Laboratory data is essentially unremarkable. Diagnostic imaging reveals findings described above. Today with some difficulty, I attempted to retract the patient's phimosis. However, this is quite tight and could not reduce all the way. I brought the head up towards the top of the phimosis and reduce some of the edema. I was then able to with some difficulty pass the catheter through the phimosis and into the meatus and up the urethra into the bladder. The catheter was irrigated and appeared to be in good position. It was inflated and left to gravity drainage. The catheter can be kept in place as necessary. There was not much urine output indicating that the fluid seen on bladder scan was likely ascites fluid rather than true urine retention. Thank you for allowing me to participate in the care of this nice gentleman. Please do not hesitate to contact me with any questions that you may further have regarding his care. Kiran Amador M.D. DR: MYLES JOB#: [id number] CC:
--- NOTE | 2018-09-14 19:20 | NUR ---
HAND-OFF: Report given to aissatou hernandez.
--- NOTE | 2018-09-14 19:41 | NUR ---
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
[2018-09-14 20:00] VITALS: BP 138/59
[2018-09-14] MEDS: Donepezil 10mg tab GT SCH (21:11)
[2018-09-14] MEDS: Miralax 17gm pkt GT SCH (21:11)
[2018-09-15] VITALS: BP 135/48
[2018-09-15] MEDS: NovoLOG Insulin Flexpen SUBQ SCH ×5 (00:17→23:50)
[2018-09-15 04:00] VITALS: BP 117/45
[2018-09-15] MEDS: Desitin Rash Paste TOPIC SCH ×3 (05:33→21:00)
[2018-09-15 06:55] LABS: HEMATOCRIT 34.1 % (42.0-52.0); HEMOGLOBIN 11.3 G/DL (14.2-18.0); MEAN CORPUSCULAR VOLUME 94 FL (80-99); PLATELET COUNT 193 K/UL (150-450); RED BLOOD COUNT 3.63 M/UL (4.70-6.10)
[2018-09-15 07:00] LABS: INR 1.1 (0.9-1.1)
[2018-09-15 07:04] LABS: ALANINE AMINOTRANSFERASE 9 U/L (12-78); ALBUMIN 1.4 G/DL (3.4-5.0); ALBUMIN/GLOBULIN RATIO 0.3 (1.0-2.7); ALKALINE PHOSPHATASE 257 U/L (46-116); ANION GAP 7 mmol/L (5-15); ASPARTATE AMINO TRANSFERASE 44 U/L (15-37); BILIRUBIN,TOTAL 0.8 MG/DL (0.2-1.0); BLOOD UREA NITROGEN 21 mg/dL (7-18); CALCIUM 10.1 MG/DL (8.5-10.1); CARBON DIOXIDE 26 MMOL/L (21-32); CHLORIDE 108 MMOL/L (98-107); CREATININE 0.9 MG/DL (0.55-1.30); SODIUM 141 MMOL/L (136-145)
--- NOTE | 2018-09-15 07:17 | NUR ---
HAND-OFF: Report given to ISMAEL saez.Patient stable,sleeping.GT feeding increased to 30 ml/hr
--- NOTE | 2018-09-15 07:18 | NUR ---
NURSE NOTES: Received patient in bed. Asleep, easy to arouse. On room air, no respiratory distress. On continuous GTF. Dr. Gonzales at bedside. Schmid cath inplace, with yellow urine noted in drainage bag. Will continue plan of care.
--- NOTE | 2018-09-15 07:27 | General Progress Note ---
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 SNOMED: 672650948, 597494835, 700206767 (2) Anemia ICD Codes: D64.9 - Anemia, unspecified SNOMED: 795038488 (3) Liver mass ICD Codes: R16.0 - Hepatomegaly, not elsewhere classified SNOMED: 392408651 (4) Fecal impaction ICD Codes: K56.41 - Fecal impaction SNOMED: 77974328 (5) CVA (cerebral vascular accident) ICD Codes: I63.9 - CVA (cerebral vascular accident) SNOMED: 559285537 (6) CHF (congestive heart failure) ICD Codes: I50.9 - Heart failure, unspecified SNOMED: 41388448 (7) Atrial fibrillation and flutter ICD Codes: I48.91 - Unspecified atrial fibrillation; I48.92 - Unspecified atrial flutter SNOMED: 022603552 (8) Constipation ICD Codes: K59.00 - Constipation, unspecified SNOMED: 27678087 Qualifiers: Qualified Codes: K59.00 - Constipation, unspecified (9) Abdominal distension ICD Codes: R14.0 - Abdominal distension (gaseous) SNOMED: 83445260 Status: unchanged Assessment/Plan: KUB ordered for abdominal distention >> no acute process GT was changed at the bedside G-tube feedings Reglan low dose Monitor H&H, PRN transfusions Turn patient every 2 hours bowel regimen abd us to eval for large ascites>> pending Subjective ROS Limited/Unobtainable: No Allergies: Coded Allergies: No Known Allergies (Verified , 06/07/08) Subjective had rapid response yesterday ? aspirated elevated GT residuals Objective Last 24 Hour Vital Signs Date Time Temp Pulse Resp B/P (MAP) Pulse Ox O2 Delivery O2 Flow Rate FiO2 09/15/18 04:00 97.9 59 20 117/45 (69) 96 09/15/18 04:00 Room Air 09/15/18 03:48 90 09/15/18 00:00 98.1 66 20 135/48 (77) 96 09/15/18 00:00 Room Air 09/14/18 23:50 85 09/14/18 23:15 67 18 96 Room Air 21 09/14/18 20:02 88 18 100 Room Air 21 09/14/18 20:00 Room Air 09/14/18 20:00 97.9 60 20 138/59 (85) 96 09/14/18 19:52 81 20 97 Room Air 09/14/18 19:13 89 09/14/18 16:00 98.2 67 20 149/58 (88) 99 09/14/18 16:00 Room Air 09/14/18 16:00 100 09/14/18 15:31 75 20 100 Room Air 21 09/14/18 15:23 81 20 97 Room Air 21 09/14/18 12:00 98.6 76 22 148/55 (86) 99 09/14/18 12:00 97 09/14/18 12:00 Room Air 09/14/18 11:14 73 20 100 Room Air 09/14/18 11:07 79 20 98 Room Air 09/14/18 08:15 156/79 09/14/18 08:00 Room Air 09/14/18 08:00 98.8 84 20 156/79 (104) 96 09/14/18 07:45 94 Intake and Output 09/14/18 09/15/18 19:00 07:00 Intake Total 550 ml 260 ml Output Total 250 ml Balance 300 ml 260 ml Intake Free Water 20 ml 100 ml IV Total 400 ml Tube Feeding 130 ml 160 ml Output Urine Total 250 ml # Voids 2 # Bowel Movements 5 1 Laboratory Tests 09/15/18 05:46: White Blood Count 16.0H, Red Blood Count 3.63L, Hemoglobin 11.3L, Hematocrit 34.1L, Mean Corpuscular Volume 94, Mean Corpuscular Hemoglobin 31.2H, Mean Corpuscular Hemoglobin Concent 33.3, Red Cell Distribution Width 14.0, Platelet Count 193, Mean Platelet Volume 5.9L, Neutrophils (%) (Auto) , Lymphocytes (%) ( Auto) , Monocytes (%) (Auto) , Eosinophils (%) (Auto) , Basophils (%) (Auto) , Neutrophils % (Manual) [Pending], Lymphocytes % (Manual) [Pending], Platelet Estimate [Pending], Platelet Morphology [Pending], Prothrombin Time 11.5, Prothromb Time International Ratio 1.1, Activated Partial Thromboplast Time 35H , Sodium Level [Pending], Potassium Level [Pending], Chloride Level [Pending], Carbon Dioxide Level [Pending], Blood Urea Nitrogen [Pending], Creatinine [ Pending], Estimat Glomerular Filtration Rate [Pending], Glucose Level [Pending] , Calcium Level [Pending], Total Bilirubin [Pending], Aspartate Amino Transf ( AST/SGOT) [Pending], Alanine Aminotransferase (ALT/SGPT) [Pending], Alkaline Phosphatase [Pending], Total Protein [Pending], Albumin [Pending], Globulin [ Pending] Height (Feet): 5 Height (Inches): 8.00 Weight (Pounds): 175 General Appearance: lethargic EENT: normal ENT inspection Neck: supple Cardiovascular: normal rate Respiratory/Chest: decreased breath sounds Abdomen: soft, hypoactive bowel sounds, distended Extremities: non-tender Demetris Gonzales MD Sep 15, 2018 07:27
[2018-09-15 08:00] VITALS: BP 128/53
--- NOTE | 2018-09-15 08:30 | NUR ---
NURSE NOTES: Contact isolation observed, Patient tolerating GTF at this time. Will continue to monitor.
[2018-09-15] MEDS: Vitamin D 1000 IU Tab GT SCH ×2 (08:39→17:42)
[2018-09-15] MEDS: Lactulose 10gm/15ml UDC GT SCH ×3 (08:39→17:42)
[2018-09-15] MEDS: Docusate 100mg/10ml Liq GT SCH ×2 (08:40→17:42)
[2018-09-15] MEDS: Losartan 50mg tab GT SCH (08:40)
[2018-09-15] MEDS: Heparin 5000 units/ml inj SUBQ SCH ×2 (08:42→20:59)
[2018-09-15] MEDS: Levemir Flexpen SUBQ SCH (08:43)
[2018-09-15 12:00] VITALS: BP 129/57
--- NOTE | 2018-09-15 13:25 | General Progress Note ---
Progress Note Progress Note no acute events labs noted GI plan for paracentesis KUB ordered cont with diet thank you Jesse Cash Sep 15, 2018 13:25
--- NOTE | 2018-09-15 14:00 | NUR ---
HAND-OFF: Report given to ISMAEL Marcial.
--- NOTE | 2018-09-15 14:00 | NUR ---
NURSE NOTES: Received report from ISMAEL Palacio. Observed patient in bed, awake, nonverbal. On room air,no respiratory distress noted. GT intact and patent with feeding infusing at prescribed rate, no residual. HOB elevated IV left arm and right ac intact and patent. FC intact and draining well to gravity. Safety precautions in place; bed locked, alarmed and in lowest position, side rails up x3 and call light left within reach. Will continue with plan of care.
[2018-09-15 16:00] VITALS: BP 143/58
[2018-09-15] MEDS ORDERED: Lacri-Lube Opth Oint 3.5gm BOTH EYES SCH (18:00)
--- NOTE | 2018-09-15 18:21 | General Progress Note ---
Assessment/Plan Problem List: (1) Atrial fibrillation and flutter ICD Codes: I48.91 - Unspecified atrial fibrillation; I48.92 - Unspecified atrial flutter SNOMED: 536797064 (2) CHF (congestive heart failure) ICD Codes: I50.9 - Heart failure, unspecified SNOMED: 55367561 (3) Pancreatitis ICD Codes: K85.90 - Acute pancreatitis without necrosis or infection, unspecified SNOMED: 31834771 (4) CVA (cerebral vascular accident) ICD Codes: I63.9 - CVA (cerebral vascular accident) SNOMED: 173630597 (5) Abdominal distension ICD Codes: R14.0 - Abdominal distension (gaseous) SNOMED: 30543326 (6) Umbilical hernia ICD Codes: K42.9 - Umbilical hernia without obstruction or gangrene SNOMED: 493926933 Qualifiers: Qualified Codes: K42.9 - Umbilical hernia without obstruction or gangrene Status: unchanged Assessment/Plan: liver mass abdominal distention episodic hypertension and tachycardia abdominal distention, slightly improved urinary retention PLAN GI follow up - feeds noted and residuals noted general surgery reviewed and noted monitor for change and recommend liver masses previously - defer biopsy monitor TF and resume when able tap if needed check abdominal US for ascites urology noted- johnston in place not yet stable for snf; will discuss with consultants impression, plan, and exam edited and reviewed in detail care discussed with RN Subjective ROS Limited/Unobtainable: Yes Allergies: Coded Allergies: No Known Allergies (Verified , 06/07/08) Subjective vitals reviewed GT change noted and started on feeds care noted and reviewed Objective Last 24 Hour Vital Signs Date Time Temp Pulse Resp B/P (MAP) Pulse Ox O2 Delivery O2 Flow Rate FiO2 09/15/18 16:00 Room Air 09/15/18 16:00 97.3 114 22 143/58 (86) 95 09/15/18 15:27 100 09/15/18 12:00 99.0 108 22 129/57 (81) 94 09/15/18 12:00 Room Air 09/15/18 11:31 114 09/15/18 08:40 117/45 09/15/18 08:00 Room Air 09/15/18 08:00 100.2 109 22 128/53 (78) 96 09/15/18 07:42 105 09/15/18 04:00 97.9 59 20 117/45 (69) 96 09/15/18 04:00 Room Air 09/15/18 03:48 90 09/15/18 00:00 98.1 66 20 135/48 (77) 96 09/15/18 00:00 Room Air 09/14/18 23:50 85 09/14/18 23:15 67 18 96 Room Air 21 09/14/18 20:02 88 18 100 Room Air 21 09/14/18 20:00 Room Air 09/14/18 20:00 97.9 60 20 138/59 (85) 96 09/14/18 19:52 81 20 97 Room Air 21 09/14/18 19:13 89 Intake and Output 09/14/18 09/15/18 19:00 07:00 Intake Total 550 ml 280 ml Output Total 250 ml Balance 300 ml 280 ml Intake Free Water 20 ml 100 ml IV Total 400 ml Tube Feeding 130 ml 180 ml Output Urine Total 250 ml # Voids 2 # Bowel Movements 5 1 Laboratory Tests 09/15/18 05:46: White Blood Count 16.0H, Red Blood Count 3.63L, Hemoglobin 11.3L, Hematocrit 34.1L, Mean Corpuscular Volume 94, Mean Corpuscular Hemoglobin 31.2H, Mean Corpuscular Hemoglobin Concent 33.3, Red Cell Distribution Width 14.0, Platelet Count 193, Mean Platelet Volume 5.9L, Neutrophils (%) (Auto) , Lymphocytes (%) ( Auto) , Monocytes (%) (Auto) , Eosinophils (%) (Auto) , Basophils (%) (Auto) , Differential Total Cells Counted 100, Neutrophils % (Manual) 79H, Lymphocytes % (Manual) 10L, Monocytes % (Manual) 6, Eosinophils % (Manual) 0, Basophils % ( Manual) 0, Band Neutrophils 5, Platelet Estimate Adequate, Platelet Morphology Normal, Anisocytosis 1+, Prothrombin Time 11.5, Prothromb Time International Ratio 1.1, Activated Partial Thromboplast Time 35H, Sodium Level 141, Potassium Level 4.0, Chloride Level 108H, Carbon Dioxide Level 26, Anion Gap 7, Blood Urea Nitrogen 21H, Creatinine 0.9, Estimat Glomerular Filtration Rate , Glucose Level 146H, Calcium Level 10.1, Total Bilirubin 0.8, Aspartate Amino Transf (AST /SGOT) 44H, Alanine Aminotransferase (ALT/SGPT) 9L, Alkaline Phosphatase 257H, Total Protein 5.5L, Albumin 1.4L, Globulin 4.1, Albumin/Globulin Ratio 0.3L Height (Feet): 5 Height (Inches): 8.00 Weight (Pounds): 175 Objective WDWN NAD reduced breath sounds bilaterally without rhonchi or wheeze [id number] without MRG NABS noted some distention;Gt in place; likely ascites no CCE nonfocal skin exam noted confused, very reviewed and examined Dustin Mary MD Sep 15, 2018 18:20
--- NOTE | 2018-09-15 18:36 | NUR ---
NURSE NOTES: Schmid catheter output 25 cc, Dr Mary informed and made aware. No orders received at this time. Addendum: 09/15/18 at 1839 by Aggie Mcdowell RN Bladder scan done, showed 561ml. Per Dr Amador's notes, he is aware of low output.
--- NOTE | 2018-09-15 19:12 | NUR ---
HAND-OFF: Report given to ISMAEL Lopez. Patient in stable condition.
--- NOTE | 2018-09-15 19:13 | NUR ---
NURSE NOTES: Received bedside report from ISMAEL Marcial.Patient stable,sleeping,nonverbal,SR-ST on secured entrance monitor,no s/s of pain,no respiratory distress noted,tolerated r/air well GT running with Glucerna 1.5@ 45 ml/hr,no residual,BS active in all quadrants,bowel distended,IV asymptomatic intact SL,bed secured in a low safety position,call light within a reach,will continue to monitor and follow POC
[2018-09-15 20:00] VITALS: BP 149/57
[2018-09-15] MEDS: Donepezil 10mg tab GT SCH (20:57)
[2018-09-15] MEDS: Artificial Tears 1.4% Op Soln BOTH EYES SCH (20:57)
[2018-09-15] MEDS: Miralax 17gm pkt GT SCH (20:58)
[2018-09-16] VITALS: BP 135/74
[2018-09-16 04:00] VITALS: BP 166/103
[2018-09-16] MEDS: Desitin Rash Paste TOPIC SCH ×3 (05:26→21:17)
[2018-09-16] MEDS: NovoLOG Insulin Flexpen SUBQ SCH ×4 (05:28→23:20)
[2018-09-16 05:40] LABS: HEMATOCRIT 35.1 % (42.0-52.0); HEMOGLOBIN 11.5 G/DL (14.2-18.0); MEAN CORPUSCULAR VOLUME 95 FL (80-99); PLATELET COUNT 206 K/UL (150-450); RED CELL DISTRIBUTION WIDTH 14.3 % (11.6-14.8); WHITE BLOOD COUNT 10.2 K/UL (4.8-10.8)
[2018-09-16 06:03] LABS: ANION GAP 7 mmol/L (5-15); BLOOD UREA NITROGEN 26 mg/dL (7-18); CALCIUM 10.3 MG/DL (8.5-10.1); CARBON DIOXIDE 26 MMOL/L (21-32); CHLORIDE 105 MMOL/L (98-107); CREATININE 0.9 MG/DL (0.55-1.30); POTASSIUM 4.7 MMOL/L (3.5-5.1); SODIUM 138 MMOL/L (136-145)
--- NOTE | 2018-09-16 07:00 | NUR ---
HAND-OFF: Report given to ISMAEL Mcdonald.Patient stable,sleeping.
--- NOTE | 2018-09-16 07:03 | NUR ---
NURSE NOTES: Received bedside report from Jessica GUEVARA. Pt. in bed, asleep but arousable. No sign of distress. On room air O2 sat 97-98%. No grimacing noted. F/C in placed patent/intact draining yellow colored urine. HOB elevated at all times. GTF in placed at present on hold prior to procedure. IV at left FA #22g and 20g in placed and right AC #22g. patent/intact SL. Bed in low position, locked. Call light within reach. Will cont. to monitor.
[2018-09-16 07:42] LABS: PHOSPHORUS 3.1 MG/DL (2.5-4.9)
[2018-09-16 08:00] VITALS: BP 125/70
--- NOTE | 2018-09-16 08:16 | General Progress Note ---
Assessment/Plan Problem List: (1) Atrial fibrillation and flutter ICD Codes: I48.91 - Unspecified atrial fibrillation; I48.92 - Unspecified atrial flutter SNOMED: 920857368 (2) CHF (congestive heart failure) ICD Codes: I50.9 - Heart failure, unspecified SNOMED: 94549944 (3) Pancreatitis ICD Codes: K85.90 - Acute pancreatitis without necrosis or infection, unspecified SNOMED: 12820031 (4) CVA (cerebral vascular accident) ICD Codes: I63.9 - CVA (cerebral vascular accident) SNOMED: 464561245 (5) Abdominal distension ICD Codes: R14.0 - Abdominal distension (gaseous) SNOMED: 94744036 (6) Umbilical hernia ICD Codes: K42.9 - Umbilical hernia without obstruction or gangrene SNOMED: 007216595 Qualifiers: Qualified Codes: K42.9 - Umbilical hernia without obstruction or gangrene Status: unchanged Assessment/Plan: liver mass abdominal distention episodic hypertension and tachycardia abdominal distention, slightly improved urinary retention possible ascites PLAN GI follow up - feeds as able general surgery reviewed and noted monitor for change and recommend liver masses previously - defer biopsy monitor TF and resume when able tap if needed check abdominal US for ascites today urology noted- johnston in place; monitor UO not yet stable for snf; await today's results impression, plan, and exam edited and reviewed in detail care discussed with RN Subjective ROS Limited/Unobtainable: Yes Allergies: Coded Allergies: No Known Allergies (Verified , 06/07/08) Subjective vitals reviewed GT feeds on hold for US care noted and reviewed Objective Last 24 Hour Vital Signs Date Time Temp Pulse Resp B/P (MAP) Pulse Ox O2 Delivery O2 Flow Rate FiO2 09/16/18 05:06 166/103 09/16/18 04:00 99.7 80 22 166/103 (124) 98 09/16/18 04:00 Room Air 09/16/18 03:33 92 09/16/18 00:00 98.2 133 28 135/74 (94) 95 09/16/18 00:00 Room Air 09/15/18 23:41 92 09/15/18 20:00 Room Air 09/15/18 20:00 98.2 77 26 149/57 (87) 96 09/15/18 19:47 101 09/15/18 16:00 Room Air 09/15/18 16:00 97.3 114 22 143/58 (86) 95 09/15/18 15:27 100 09/15/18 12:00 99.0 108 22 129/57 (81) 94 09/15/18 12:00 Room Air 09/15/18 11:31 114 09/15/18 08:40 117/45 Intake and Output 09/15/18 09/16/18 19:00 07:00 Intake Total 1070 ml 280 ml Output Total 260 ml 175 ml Balance 810 ml 105 ml Intake Free Water 200 ml 100 ml Tube Feeding 470 ml 180 ml Other 400 ml Output Urine Total 50 ml 175 ml Stool Total 110 ml Gastric Drainage Total 100 ml # Voids 2 # Bowel Movements 3 2 Laboratory Tests 09/16/18 03:50: White Blood Count 10.2, Red Blood Count 3.70L, Hemoglobin 11.5L, Hematocrit 35.1L, Mean Corpuscular Volume 95, Mean Corpuscular Hemoglobin 31.0, Mean Corpuscular Hemoglobin Concent 32.7, Red Cell Distribution Width 14.3, Platelet Count 206, Mean Platelet Volume 5.8L, Neutrophils (%) (Auto) , Lymphocytes (%) ( Auto) , Monocytes (%) (Auto) , Eosinophils (%) (Auto) , Basophils (%) (Auto) , Neutrophils % (Manual) [Pending], Lymphocytes % (Manual) [Pending], Platelet Estimate [Pending], Platelet Morphology [Pending], Sodium Level 138, Potassium Level 4.7, Chloride Level 105, Carbon Dioxide Level 26, Anion Gap 7, Blood Urea Nitrogen 26H, Creatinine 0.9, Estimat Glomerular Filtration Rate , Glucose Level 188H, Calcium Level 10.3H, Phosphorus Level 3.1, Magnesium Level 1.8 Height (Feet): 5 Height (Inches): 8.00 Weight (Pounds): 175 Objective WDWN NAD reduced breath sounds bilaterally without rhonchi or wheeze [id number] without MRG NABS;Gt in place; likely ascites- distention noted no CC; some edema nonfocal skin exam noted confused reviewed and examined Dustin Mary MD Sep 16, 2018 08:16
[2018-09-16] MEDS: Lactulose 10gm/15ml UDC GT SCH ×3 (08:51→18:44)
[2018-09-16] MEDS: Losartan 50mg tab GT SCH (08:51)
[2018-09-16] MEDS: Vitamin D 1000 IU Tab GT SCH ×2 (08:51→18:44)
[2018-09-16] MEDS: Artificial Tears 1.4% Op Soln BOTH EYES SCH ×2 (08:51→21:15)
[2018-09-16] MEDS: Docusate 100mg/10ml Liq GT SCH ×2 (08:51→18:44)
[2018-09-16] MEDS: Heparin 5000 units/ml inj SUBQ SCH ×2 (08:52→21:16)
[2018-09-16] MEDS: Levemir Flexpen SUBQ SCH (08:53)
--- NOTE | 2018-09-16 09:25 | Hematology/Onc Progress Note ---
Assessment/Plan Assessment/Plan Assessment and Recs # Liver mass - large heterogeneous mass in the right lobe of the liver suspicious for malignant neoplasm --> imaging has been reviewed and c/w likely malignancy --> as per Gi recs, have cancelled tumor biopsy, has been present prior admission --> treatment once have results of primary --> imaging as needed r/o ascites # Anemia of chronic disease due to underlying chronic medical issues, multifactorial --> Anemia workup has been ordered, rule out gi bleed, ferritin is 118 --> No evidence of hemolysis is noted, peripheral smear has been reviewed. --> Hgb goal >7. Transfuse prn. --> Epogen or iron at this time is not particularly indicated --> Medications have been reviewed --> improved trend 10-->11-->12-->11.8-->11.5 # Hypercalcemia - on admission elev, due to likely dehydration --> Ca has improved, on ivf --> on IVF also for hypernatremia --> per renal recs # Fecal impaction --> on colace, senna as per gi # Constipation --> stool softeners per gi # Abdominal distension The timing of this note does not necessarily reflect the time of the patient was seen. GREATLY APPRECIATE CONSULTATION. Subjective Constitutional: Denies: no symptoms, chills, fever, malaise, weakness, other HEENT: Denies: no symptoms, eye pain, blurred vision, tearing, double vision, ear pain, ear discharge, nose pain, nose congestion, throat pain, throat swelling, mouth pain, mouth swelling, other Cardiovascular: Denies: no symptoms, chest pain, edema, irregular heart rate, lightheadedness, palpitations, syncope, other Respiratory: Denies: no symptoms, cough, shortness of breath, SOB with excertion, SOB at rest, sputum, wheezing, other Gastrointestinal/Abdominal: Denies: no symptoms, abdomen distended, abdominal pain, black stools, tarry stools, blood in stool, constipated, diarrhea, difficulty swallowing, nausea, poor appetite, poor fluid intake, rectal bleeding , vomiting, other Genitourinary: Denies: no symptoms, burning, discharge, frequency, flank pain, hematuria, incontinence, pain, urgency, other Neurologic/Psychiatric: Denies: no symptoms, anxiety, depressed, emotional problems, headache, numbness, paresthesia, pre-existing deficit, seizure, tingling, tremors, weakness, other Endocrine: Denies: no symptoms, excessive sweating, flushing, intolerance to cold, intolerance to heat, increased hunger, increased thirst, increased urine, unexplained weight gain, unexplained weight loss, other Hematologic/Lymphatic: Denies: no symptoms, anemia, easy bleeding, easy bruising, adenopathy, other Allergies: Coded Allergies: No Known Allergies (Verified , 06/07/08) Subjective 09/10: no bleeding, no night sweats, no events otherwise, labs pending 09/11: liver biopsy cancelled, no events, tumor markers neg 09/12: no events, no bleeding, h/h reviewed, no f/c 09/13: patient being turned every 2 hrs, seen by gi 09/14: no events, still with abd pain, imaging per gi 09/16: arousable, nonverbal, no events reported Objective Objective Current Medications Medications (Trade) Dose Ordered Sig/Reagan Route PRN Reason Start Time Stop Time Status Last Admin Dose Admin Acetaminophen (Tylenol) 650 mg Q4H PRN GT Mild Pain/Temp > 100.5 09/09/18 21:19 10/09/18 21:18 Artificial Tears (Akwa-Tears) 1 drop EVERY 12 HOURS BOTH EYES 09/15/18 21:00 10/15/18 20:59 09/16/18 08:51 Atorvastatin Calcium (Lipitor) 10 mg BEDTIME GT 09/10/18 21:00 10/04/18 20:59 09/15/18 20:58 Dextrose (Dextrose 50%) 25 ml Q30M PRN IV Hypoglycemia 09/09/18 21:30 10/03/18 21:29 Dextrose (Dextrose 50%) 50 ml Q30M PRN IV Hypoglycemia 09/09/18 21:30 10/03/18 21:29 Docusate Sodium (Colace) 100 mg BID GT 09/10/18 09:00 10/04/18 08:59 09/16/18 08:51 Donepezil HCl (Aricept) 10 mg BEDTIME GT 09/10/18 21:00 10/04/18 20:59 09/15/18 20:57 Heparin Sodium (Porcine) (Heparin 5000 units/ml) 5,000 units EVERY 12 HOURS SUBQ 09/10/18 09:00 10/04/18 08:59 09/15/18 08:42 Hydralazine HCl (Apresoline) 25 mg Q6H PRN GT For High Blood Pressure 09/09/18 21:20 10/09/18 21:19 09/16/18 05:06 Insulin Aspart (NovoLOG) EVERY 6 HOURS SUBQ 09/10/18 12:00 10/10/18 06:29 09/16/18 05:28 Insulin Detemir (Levemir) 5 units DAILY SUBQ 09/10/18 09:00 10/04/18 08:59 09/16/18 08:53 Lactulose (Cephulac) 10 gm THREE TIMES A DAY GT 09/10/18 09:00 10/08/18 12:59 09/16/18 08:51 Losartan Potassium (Cozaar) 100 mg DAILY GT 09/10/18 09:00 10/04/18 08:59 09/16/18 08:51 Metoclopramide HCl (Reglan) 5 mg Q8H PRN IVP Nausea & Vomiting 09/10/18 09:00 10/10/18 08:59 Mineral Oil (Mineral Oil) 30 ml DAILYPRN PRN GT Constipation 09/09/18 21:21 10/09/18 21:20 Polyethylene Glycol (Miralax) 17 gm BEDTIME GT 09/10/18 21:00 10/06/18 20:59 09/15/18 20:58 Sitagliptin Phosphate (Januvia) 100 mg DAILY GT 09/10/18 09:00 10/04/18 08:59 09/16/18 08:51 Vitamin D (Vitamin D) 1,000 intlu TWICE A DAY GT 09/10/18 09:00 10/04/18 08:59 09/16/18 08:51 Zinc Oxide (Desitin) 1 applic EVERY 8 HOURS TOPIC 09/10/18 14:00 10/08/18 10:29 09/16/18 05:26 Last 24 Hour Vital Signs Date Time Temp Pulse Resp B/P (MAP) Pulse Ox O2 Delivery O2 Flow Rate FiO2 09/16/18 08:51 125/70 09/16/18 08:00 100.0 65 19 125/70 (88) 94 09/16/18 05:06 166/103 09/16/18 04:00 99.7 80 22 166/103 (124) 98 09/16/18 04:00 Room Air 09/16/18 03:33 92 09/16/18 00:00 98.2 133 28 135/74 (94) 95 09/16/18 00:00 Room Air 09/15/18 23:41 92 09/15/18 20:00 Room Air 09/15/18 20:00 98.2 77 26 149/57 (87) 96 09/15/18 19:47 101 09/15/18 16:00 Room Air 09/15/18 16:00 97.3 114 22 143/58 (86) 95 09/15/18 15:27 100 09/15/18 12:00 99.0 108 22 129/57 (81) 94 09/15/18 12:00 Room Air 09/15/18 11:31 114 09/15/18 08:40 117/45 09/15/18 08:00 Room Air 09/15/18 08:00 100.2 109 22 128/53 (78) 96 09/15/18 07:42 105 09/15/18 04:00 97.9 59 20 117/45 (69) 96 09/15/18 04:00 Room Air 09/15/18 03:48 90 09/15/18 00:00 98.1 66 20 135/48 (77) 96 09/15/18 00:00 Room Air 09/14/18 23:50 85 09/14/18 23:15 67 18 96 Room Air 21 09/14/18 20:02 88 18 100 Room Air 21 09/14/18 20:00 Room Air 09/14/18 20:00 97.9 60 20 138/59 (85) 96 09/14/18 19:52 81 20 97 Room Air 21 09/14/18 19:13 89 09/14/18 16:00 98.2 67 20 149/58 (88) 99 09/14/18 16:00 Room Air 09/14/18 16:00 100 09/14/18 15:31 75 20 100 Room Air 21 09/14/18 15:23 81 20 97 Room Air 21 09/14/18 12:00 98.6 76 22 148/55 (86) 99 7/13/19 12:00 97 09/14/18 12:00 Room Air 09/14/18 11:14 73 20 100 Room Air 21 09/14/18 11:07 79 20 98 Room Air 21 Intake and Output 09/15/18 09/16/18 19:00 07:00 Intake Total 1070 ml 280 ml Output Total 260 ml 175 ml Balance 810 ml 105 ml Intake Free Water 200 ml 100 ml Tube Feeding 470 ml 180 ml Other 400 ml Output Urine Total 50 ml 175 ml Stool Total 110 ml Gastric Drainage Total 100 ml # Voids 2 # Bowel Movements 3 2 Labs Test 09/14/18 05:13 09/15/18 05:46 09/16/18 03:50 White Blood Count 14.3 K/UL (4.8-10.8) 16.0 K/UL (4.8-10.8) 10.2 K/UL (4.8-10.8) Red Blood Count 3.85 M/UL (4.70-6.10) 3.63 M/UL (4.70-6.10) 3.70 M/UL (4.70-6.10) Hemoglobin 11.8 G/DL (14.2-18.0) 11.3 G/DL (14.2-18.0) 11.5 G/DL (14.2-18.0) Hematocrit 36.4 % (42.0-52.0) 34.1 % (42.0-52.0) 35.1 % (42.0-52.0) Mean Corpuscular Volume 95 FL (80-99) 94 FL (80-99) 95 FL (80-99) Mean Corpuscular Hemoglobin 30.8 PG (27.0-31.0) 31.2 PG (27.0-31.0) 31.0 PG (27.0-31.0) Mean Corpuscular Hemoglobin Concent 32.5 G/DL (32.0-36.0) 33.3 G/DL (32.0-36.0) 32.7 G/DL (32.0-36.0) Red Cell Distribution Width 14.2 % (11.6-14.8) 14.0 % (11.6-14.8) 14.3 % (11.6-14.8) Platelet Count 201 K/UL (150-450) 193 K/UL (150-450) 206 K/UL (150-450) Mean Platelet Volume 5.9 FL (6.5-10.1) 5.9 FL (6.5-10.1) 5.8 FL (6.5-10.1) Neutrophils (%) (Auto) 83.7 % (45.0-75.0) % (45.0-75.0) % (45.0-75.0) Lymphocytes (%) (Auto) 8.9 % (20.0-45.0) % (20.0-45.0) % (20.0-45.0) Monocytes (%) (Auto) 6.8 % (1.0-10.0) % (1.0-10.0) % (1.0-10.0) Eosinophils (%) (Auto) 0.3 % (0.0-3.0) % (0.0-3.0) % (0.0-3.0) Basophils (%) (Auto) 0.4 % (0.0-2.0) % (0.0-2.0) % (0.0-2.0) Sodium Level 139 MMOL/L (136-145) 141 MMOL/L (136-145) 138 MMOL/L (136-145) Potassium Level 3.7 MMOL/L (3.5-5.1) 4.0 MMOL/L (3.5-5.1) 4.7 MMOL/L (3.5-5.1) Chloride Level 106 MMOL/L (98-107) 108 MMOL/L (98-107) 105 MMOL/L (98-107) Carbon Dioxide Level 25 MMOL/L (21-32) 26 MMOL/L (21-32) 26 MMOL/L (21-32) Anion Gap 8 mmol/L (5-15) 7 mmol/L (5-15) 7 mmol/L (5-15) Blood Urea Nitrogen 16 mg/dL (7-18) 21 mg/dL (7-18) 26 mg/dL (7-18) Creatinine 0.8 MG/DL (0.55-1.30) 0.9 MG/DL (0.55-1.30) 0.9 MG/DL (0.55-1.30) Estimat Glomerular Filtration Rate mL/min (>60) mL/min (>60) mL/min (>60) Glucose Level 190 MG/DL (74-106) 146 MG/DL (74-106) 188 MG/DL (74-106) Calcium Level 9.9 MG/DL (8.5-10.1) 10.1 MG/DL (8.5-10.1) 10.3 MG/DL (8.5-10.1) Differential Total Cells Counted 100 Neutrophils % (Manual) 79 % (45-75) Lymphocytes % (Manual) 10 % (20-45) Monocytes % (Manual) 6 % (1-10) Eosinophils % (Manual) 0 % (0-3) Basophils % (Manual) 0 % (0-2) Band Neutrophils 5 % (0-8) Platelet Estimate Adequate Platelet Morphology Normal Anisocytosis 1+ Prothrombin Time 11.5 SEC (9.30-11.50) Prothromb Time International Ratio 1.1 (0.9-1.1) Activated Partial Thromboplast Time 35 SEC (23-33) Total Bilirubin 0.8 MG/DL (0.2-1.0) Aspartate Amino Transf (AST/SGOT) 44 U/L (15-37) Alanine Aminotransferase (ALT/SGPT) 9 U/L (12-78) Alkaline Phosphatase 257 U/L (46-116) Total Protein 5.5 G/DL (6.4-8.2) Albumin 1.4 G/DL (3.4-5.0) Globulin 4.1 g/dL Albumin/Globulin Ratio 0.3 (1.0-2.7) Phosphorus Level 3.1 MG/DL (2.5-4.9) Magnesium Level 1.8 MG/DL (1.8-2.4) Height (Feet): 5 Height (Inches): 8.00 Weight (Pounds): 175 Objective Gen: well appearing, no apparent distress, alert Head: normocephalic EENT: PERRL/EOMI, normal ENT inspection Pulm: normal breath sounds, no respiratory distress CV: rrr. no mgr GI: normal inspection, non tender, soft, normal bowel sounds, non-distended ++ gtube Rectal: deferred Gu: deferred Musculoskeletal: normal inspection, back normal Neurologic: normal inspection, alert, oriented x3, responsive Psychiatric: normal inspection, judgement/insight normal, memory normal Skin: normal inspection, normal color, no rash, warm/dry, palpation normal, well hydrated Fadi Vicente MD Sep 16, 2018 09:25
--- NOTE | 2018-09-16 10:45 | GI Progress Note ---
Assessment/Plan Problems: (1) Anemia ICD Codes: D64.9 - Anemia, unspecified SNOMED: 809016856 (2) Liver mass ICD Codes: R16.0 - Hepatomegaly, not elsewhere classified SNOMED: 658950627 (3) Fecal impaction ICD Codes: K56.41 - Fecal impaction SNOMED: 99811760 (4) CVA (cerebral vascular accident) ICD Codes: I63.9 - CVA (cerebral vascular accident) SNOMED: 031865108 (5) G tube feedings ICD Codes: Z93.1 - Gastrostomy status SNOMED: 349674847, 641652788, 930547938 (6) Abdominal distension ICD Codes: R14.0 - Abdominal distension (gaseous) SNOMED: 67321156 (7) Constipation ICD Codes: K59.00 - Constipation, unspecified SNOMED: 94593069 Qualifiers: Qualified Codes: K59.00 - Constipation, unspecified Status: unchanged Status Narrative Discussed with Dr. Gonzales. Assessment/Plan KUB ordered for abdominal distention >> no acute process GT was changed at the bedside G-tube feedings Reglan low dose Monitor H&H, PRN transfusions Turn patient every 2 hours bowel regimen abd us to eval for large ascites>> pending The patient was seen and examined at bedside and all new and available data was reviewed in the patients chart. I agree with the above findings, impression and plan. (Patient seen earlier today. Signature stamp does not reflect patient encounter time.). - Demetris Gonzales MD Subjective Subjective Limited Objective Last 24 Hour Vital Signs Date Time Temp Pulse Resp B/P (MAP) Pulse Ox O2 Delivery O2 Flow Rate FiO2 09/16/18 08:51 125/70 09/16/18 08:00 Room Air 09/16/18 08:00 100.0 65 19 125/70 (88) 94 09/16/18 07:52 91 09/16/18 05:06 166/103 09/16/18 04:00 99.7 80 22 166/103 (124) 98 09/16/18 04:00 Room Air 09/16/18 03:33 92 09/16/18 00:00 98.2 133 28 135/74 (94) 95 09/16/18 00:00 Room Air 7/14/19 23:41 92 09/15/18 20:00 Room Air 09/15/18 20:00 98.2 77 26 149/57 (87) 96 09/15/18 19:47 101 09/15/18 16:00 Room Air 09/15/18 16:00 97.3 114 22 143/58 (86) 95 09/15/18 15:27 100 09/15/18 12:00 99.0 108 22 129/57 (81) 94 09/15/18 12:00 Room Air 09/15/18 11:31 114 Intake and Output 09/15/18 09/16/18 19:00 07:00 Intake Total 1070 ml 280 ml Output Total 260 ml 175 ml Balance 810 ml 105 ml Intake Free Water 200 ml 100 ml Tube Feeding 470 ml 180 ml Other 400 ml Output Urine Total 50 ml 175 ml Stool Total 110 ml Gastric Drainage Total 100 ml # Voids 2 # Bowel Movements 3 2 Laboratory Tests Test 09/16/18 03:50 White Blood Count 10.2 K/UL (4.8-10.8) Red Blood Count 3.70 M/UL (4.70-6.10) L Hemoglobin 11.5 G/DL (14.2-18.0) L Hematocrit 35.1 % (42.0-52.0) L Mean Corpuscular Volume 95 FL (80-99) Mean Corpuscular Hemoglobin 31.0 PG (27.0-31.0) Mean Corpuscular Hemoglobin Concent 32.7 G/DL (32.0-36.0) Red Cell Distribution Width 14.3 % (11.6-14.8) Platelet Count 206 K/UL (150-450) Mean Platelet Volume 5.8 FL (6.5-10.1) L Neutrophils (%) (Auto) % (45.0-75.0) Lymphocytes (%) (Auto) % (20.0-45.0) Monocytes (%) (Auto) % (1.0-10.0) Eosinophils (%) (Auto) % (0.0-3.0) Basophils (%) (Auto) % (0.0-2.0) Neutrophils % (Manual) Pending Lymphocytes % (Manual) Pending Platelet Estimate Pending Platelet Morphology Pending Sodium Level 138 MMOL/L (136-145) Potassium Level 4.7 MMOL/L (3.5-5.1) Chloride Level 105 MMOL/L (98-107) Carbon Dioxide Level 26 MMOL/L (21-32) Anion Gap 7 mmol/L (5-15) Blood Urea Nitrogen 26 mg/dL (7-18) H Creatinine 0.9 MG/DL (0.55-1.30) Estimat Glomerular Filtration Rate mL/min (>60) Glucose Level 188 MG/DL (74-106) H Calcium Level 10.3 MG/DL (8.5-10.1) H Phosphorus Level 3.1 MG/DL (2.5-4.9) Magnesium Level 1.8 MG/DL (1.8-2.4) Height (Feet): 5 Height (Inches): 8.00 Weight (Pounds): 175 General Appearance: alert Cardiovascular: normal rate Abdominal Exam: ascites Michelle Samuel NP Sep 16, 2018 10:45
--- NOTE | 2018-09-16 10:55 | Surgery Progress Note ---
Surgery Progress Note Subjective Additional Comments leukocytosis resolved exam stable pending KUB and US results Objective Last 24 Hour Vital Signs Date Time Temp Pulse Resp B/P (MAP) Pulse Ox O2 Delivery O2 Flow Rate FiO2 09/16/18 08:51 125/70 09/16/18 08:00 Room Air 09/16/18 08:00 100.0 65 19 125/70 (88) 94 09/16/18 07:52 91 09/16/18 05:06 166/103 09/16/18 04:00 99.7 80 22 166/103 (124) 98 09/16/18 04:00 Room Air 09/16/18 03:33 92 09/16/18 00:00 98.2 133 28 135/74 (94) 95 09/16/18 00:00 Room Air 09/15/18 23:41 92 09/15/18 20:00 Room Air 09/15/18 20:00 98.2 77 26 149/57 (87) 96 09/15/18 19:47 101 09/15/18 16:00 Room Air 09/15/18 16:00 97.3 114 22 143/58 (86) 95 09/15/18 15:27 100 09/15/18 12:00 99.0 108 22 129/57 (81) 94 09/15/18 12:00 Room Air 09/15/18 11:31 114 I&O Intake and Output 09/15/18 09/16/18 18:59 06:59 Intake Total 1045 ml 325 ml Output Total 260 ml 175 ml Balance 785 ml 150 ml Intake Free Water 200 ml 100 ml Tube Feeding 445 ml 225 ml Other 400 ml Output Urine Total 50 ml 175 ml Stool Total 110 ml Gastric Drainage Total 100 ml # Voids 2 # Bowel Movements 3 2 Drains: none Cardiovascular: RSR Respiratory: clear Abdomen: soft, present bowel sounds, other Extremities: no tenderness, no cyanosis Laboratory Tests Test 09/16/18 03:50 White Blood Count 10.2 K/UL (4.8-10.8) Red Blood Count 3.70 M/UL (4.70-6.10) L Hemoglobin 11.5 G/DL (14.2-18.0) L Hematocrit 35.1 % (42.0-52.0) L Mean Corpuscular Volume 95 FL (80-99) Mean Corpuscular Hemoglobin 31.0 PG (27.0-31.0) Mean Corpuscular Hemoglobin Concent 32.7 G/DL (32.0-36.0) Red Cell Distribution Width 14.3 % (11.6-14.8) Platelet Count 206 K/UL (150-450) Mean Platelet Volume 5.8 FL (6.5-10.1) L Neutrophils (%) (Auto) % (45.0-75.0) Lymphocytes (%) (Auto) % (20.0-45.0) Monocytes (%) (Auto) % (1.0-10.0) Eosinophils (%) (Auto) % (0.0-3.0) Basophils (%) (Auto) % (0.0-2.0) Neutrophils % (Manual) Pending Lymphocytes % (Manual) Pending Platelet Estimate Pending Platelet Morphology Pending Sodium Level 138 MMOL/L (136-145) Potassium Level 4.7 MMOL/L (3.5-5.1) Chloride Level 105 MMOL/L (98-107) Carbon Dioxide Level 26 MMOL/L (21-32) Anion Gap 7 mmol/L (5-15) Blood Urea Nitrogen 26 mg/dL (7-18) H Creatinine 0.9 MG/DL (0.55-1.30) Estimat Glomerular Filtration Rate mL/min (>60) Glucose Level 188 MG/DL (74-106) H Calcium Level 10.3 MG/DL (8.5-10.1) H Phosphorus Level 3.1 MG/DL (2.5-4.9) Magnesium Level 1.8 MG/DL (1.8-2.4) Plan Additional Comments await US and KUB results overall improving labs improved cont current care Jesse Cash Sep 16, 2018 10:55
--- NOTE | 2018-09-16 11:37 | Diagnostic Imaging Report ---
Indication: Abdominal pain Technique: Supine view of the abdomen Comparison: 09/11/2018 Findings: Very limited due to body habitus. There is a gastrostomy again demonstrated. Bowel gas pattern is grossly unremarkable. No masses or unusual calcifications. There is evidence of a cardiac pacemaker. There is suggestion of a right-sided pleural effusion. There are degenerative spondylosis changes. Findings are unchanged Impression: No definite acute process. Findings as noted
[2018-09-16 12:00] VITALS: BP 132/56
[2018-09-16] MEDS: Acetaminophen 650mg/20.3ml GT PRN (12:33)
--- NOTE | 2018-09-16 13:44 | NUR ---
RD ASSESSMENT & RECOMMENDATIONS SEE CARE ACTIVITY FOR COMPLETE ASSESSMENT DAILY ESTIMATED NEEDS: Needs based on DM/ 65.5kg 25-30 kcals/kg 2378-8823 total kcals 1-1.5 g protein/kg 66-99 g total protein 25-30 mL/kg 3131-1138 total fluid mLs NUTRITION DIAGNOSIS: 1) Altered GI fxn r/t SBO and fecal impaction as evidenced by pt w/ elev tube feeding residuals, now off GT to LIS, TF well tolerated, TF currently held for a procedure. 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 CURRENT DIET:NPO CURRENT TF:GLUCERNA 1.5 @ 45ML/HR X 24 HRS -HELD ENTERAL NUTRITION RECOMMENDATIONS: GLUCERNA 1.5 @ 46ML/HR X 24 HRS to provide 1104ml, 1656kcal, 91g prot, 838ml free water * Increase goal rate to 46ml/hr x 24 hrs to meet 100% est kcal/prot needs * HOB >30 degrees, H2O flushes per MD * At goal, TF provides 100% of est. 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
--- NOTE | 2018-09-16 15:45 | NUR ---
NURSE NOTES: S/P paracentesis abdomen 5.5L out.
[2018-09-16 16:00] VITALS: BP 129/61
--- NOTE | 2018-09-16 16:00 | NUR ---
NURSE NOTES: No a/r noted s/p paracentesis. Pt. tolerated the procedure well.
--- NOTE | 2018-09-16 16:03 | Pre-Procedure Note/Attestation ---
Pre-Procedure Note/Attestation Complete Prior to Procedure Planned Procedure: not applicable Procedure Narrative: paracentesis Indications for Procedure Pre-Operative Diagnosis: ascites Attestation I attest that I discussed the nature of the procedure; its benefits; risks and complications; and alternatives (and the risks and benefits of such alternatives ), prior to the procedure, with the patient (or the patient's legal patient representative). I attest that, if there was a reasonable possibility of needing a blood transfusion, the patient (or the patient's legal patient representative) was given the [facility] standardized written summary, pursuant to the Grzegorz Pura Blood Safety Act ([place] Health and Safety Code # 1645, as amended). I attest that I re-evaluated the patient just prior to the surgery and that there has been no change in the patient's H&P, except as documented below: Discussed with pt's. family at bedside Thomas Acosta MD Sep 16, 2018 16:03
--- NOTE | 2018-09-16 16:04 | Brief Operative Note ---
Immediate Post Operative Note Operative Note Pre-op Diagnosis: ascites Procedure: paracentesis Post-op Diagnosis: same as pre-op Findings: consistent w/pre-op dx studies Surgeon: Vivi Isidro Anesthesia: local Specimen: yes - cloudy light yellow fluid sent to lab Complications: none Condition: stable Fluids: none Estimated Blood Loss: none Implant(s) used?: No Thomas Isidro MD Sep 16, 2018 16:04
--- NOTE | 2018-09-16 16:11 | Diagnostic Imaging Report ---
Indications: Ascites Technique: Procedure performed at bedside. Ultrasound used to localize optimal puncture site. Sterile prepping and draping right lower quadrant. Local anesthesia with 1% lidocaine. Under real-time ultrasound guidance, puncture peritoneal space using paracentesis needle. Stylet removed. Catheter placed to vacuum bottle suction. Total 5.5 liters of cloudy light yellow fluid aspirated. Patient tolerated procedure well, without immediate complication. Findings: Followup sonography demonstrates complete resolution of peritoneal fluid. Impression: Successful ultrasound-guided paracentesis, yielding 5.5 liters of fluid
--- NOTE | 2018-09-16 19:03 | NUR ---
NURSE NOTES: Lab called, stated they made a mistake on a Nutrophil count. instead of nutrophil count of 3, it is suppose to be 7. will endorse to [facility] and .
--- NOTE | 2018-09-16 19:20 | NUR ---
NURSE NOTES: Pt report received from [facility] SDU. Pt appears to be resting in bed, with no distress noted. pt is on room air satting at 90 percent with minor crackles noted on auscultation. pt has a monitoring manager attached showing V paced at HR 76, no other signs symptoms of distress noted. pt has L FA 22 G able to flush, and a R AC noted and able to flush, no abnormalities noted. pt has johnston inserted by and appears able to drain to gravity. all safety precautions active, bed locked and low, bed armed, bed rails up times 3, call light within reach. will coniine with plan of care.
--- NOTE | 2018-09-16 19:44 | NUR ---
HAND-OFF: Report given to Gallo GUEVARA. Pt. remain stable.
[2018-09-16 20:00] VITALS: BP 100/55
--- NOTE | 2018-09-16 20:10 | NUR ---
NURSE NOTES: Pt satting at 85%, crackles auscultated bilaterally lungs. Rt summoned, 2L NC applied. awaiting RT. CN notified.
--- NOTE | 2018-09-16 20:24 | NUR ---
NURSE NOTES: Pt now satting at 95% on 2L NC, after deep suction. white secretions noted during suctioning. will continue to monitor.
[2018-09-16] MEDS: Donepezil 10mg tab GT SCH (21:15)
[2018-09-16] MEDS: Miralax 17gm pkt GT SCH (21:15)
[2018-09-17] VITALS: BP 122/58
[2018-09-17 04:00] VITALS: BP 130/58
[2018-09-17] MEDS: NovoLOG Insulin Flexpen SUBQ SCH ×3 (05:39→18:00)
[2018-09-17] MEDS: Desitin Rash Paste TOPIC SCH ×3 (05:39→21:05)
[2018-09-17 05:41] LABS: HEMATOCRIT 35.7 % (42.0-52.0); HEMOGLOBIN 11.4 G/DL (14.2-18.0); MEAN CORPUSCULAR VOLUME 96 FL (80-99); PLATELET COUNT 162 K/UL (150-450); RED BLOOD COUNT 3.74 M/UL (4.70-6.10); RED CELL DISTRIBUTION WIDTH 14.2 % (11.6-14.8); WHITE BLOOD COUNT 6.1 K/UL (4.8-10.8)
[2018-09-17 05:55] LABS: ANION GAP 4 mmol/L (5-15); BLOOD UREA NITROGEN 36 mg/dL (7-18); CALCIUM 10.1 MG/DL (8.5-10.1); CARBON DIOXIDE 27 MMOL/L (21-32); CHLORIDE 108 MMOL/L (98-107); PHOSPHORUS 3.4 MG/DL (2.5-4.9); POTASSIUM 4.3 MMOL/L (3.5-5.1); SODIUM 139 MMOL/L (136-145)
--- NOTE | 2018-09-17 07:25 | NUR ---
NURSE NOTES: Called Dr. Mary regarding pt. Mg level 1.7 and ordered Mg 1gm x 2 over 1hr. Order carried out. Will cont. to monitor.
--- NOTE | 2018-09-17 07:28 | NUR ---
HAND-OFF: Report given to Leslie CARIAS RN .
--- NOTE | 2018-09-17 07:30 | NUR ---
NURSE NOTES: Received bedside report from Gallo GUEVARA. Pt. in bed, asleep but arousable. No sign of distress. On O2 at 2LPM via NC. O2 sat at 94%. No grimacing noted. F/C in placed patent/intact draining orange colored urine. Bed in low position, locked. Call light within reach. Will cont. to monitor.
[2018-09-17 08:00] VITALS: BP 108/68
--- NOTE | 2018-09-17 08:26 | General Progress Note ---
Assessment/Plan Problem List: (1) Atrial fibrillation and flutter ICD Codes: I48.91 - Unspecified atrial fibrillation; I48.92 - Unspecified atrial flutter SNOMED: 535454177 (2) CHF (congestive heart failure) ICD Codes: I50.9 - Heart failure, unspecified SNOMED: 70687769 (3) Pancreatitis ICD Codes: K85.90 - Acute pancreatitis without necrosis or infection, unspecified SNOMED: 80771194 (4) CVA (cerebral vascular accident) ICD Codes: I63.9 - CVA (cerebral vascular accident) SNOMED: 716197921 (5) Abdominal distension ICD Codes: R14.0 - Abdominal distension (gaseous) SNOMED: 97666436 (6) Umbilical hernia ICD Codes: K42.9 - Umbilical hernia without obstruction or gangrene SNOMED: 540113214 Qualifiers: Qualified Codes: K42.9 - Umbilical hernia without obstruction or gangrene Status: unchanged Assessment/Plan: liver mass abdominal distention episodic hypertension and tachycardia abdominal distention, slightly improved urinary retention ascites s/p tap fever PLAN CXR GI follow up - feeds as able general surgery reviewed and noted monitor for change and recommend liver masses previously - defer biopsy and discuss monitor TF and resume when able tap completed- 5.5 liters urology noted- johnston in place; monitor UO not yet stable for snf; await today's results impression, plan, and exam edited and reviewed in detail care discussed with RN Subjective ROS Limited/Unobtainable: Yes Allergies: Coded Allergies: No Known Allergies (Verified , 06/07/08) Subjective vitals reviewed s/p tap care noted and reviewed Objective Last 24 Hour Vital Signs Date Time Temp Pulse Resp B/P (MAP) Pulse Ox O2 Delivery O2 Flow Rate FiO2 09/17/18 07:15 95 Nasal Cannula 2.0 28 09/17/18 04:00 Room Air 09/17/18 04:00 98.1 63 19 130/58 (82) 95 09/17/18 03:35 110 09/17/18 00:00 98.2 70 19 122/58 (79) 96 09/17/18 00:00 Room Air 09/17/18 00:00 Room Air 09/16/18 23:33 112 09/16/18 21:58 93 Nasal Cannula 2.0 28 09/16/18 20:00 Room Air 09/16/18 20:00 97.9 105 19 100/55 (70) 99 09/16/18 19:53 123 09/16/18 16:00 Room Air 09/16/18 16:00 98.9 70 19 129/61 (83) 95 09/16/18 15:36 102 09/16/18 13:03 98.2 09/16/18 12:00 Room Air 09/16/18 12:00 101.5 71 19 132/56 (81) 95 09/16/18 11:58 74 09/16/18 08:51 125/70 Intake and Output 09/16/18 09/17/18 19:00 07:00 Output Total 5600 ml 200 ml Balance -5600 ml -200 ml Output Urine Total 100 ml 200 ml Other 5500 ml Laboratory Tests 09/16/18 17:07: Body Fluid Source Paracentesis, Body Fluid Volume 24 ml, Body Fluid Appearance Colorless/clear, Body Fluid RBC 18, Body Fluid Total Nucleated Cells 78, Body Fluid Polynuclear WBCs (%) 7, Body Fluid Mononuclear WBCs (%) 91, Body Fluid Mesothelial Cells (%) 2, Body Fluid Albumin [Pending] 09/17/18 04:00: White Blood Count 6.1, Red Blood Count 3.74L, Hemoglobin 11.4L, Hematocrit 35.7L , Mean Corpuscular Volume 96, Mean Corpuscular Hemoglobin 30.4, Mean Corpuscular Hemoglobin Concent 31.8L, Red Cell Distribution Width 14.2, Platelet Count 162, Mean Platelet Volume 6.2L, Neutrophils (%) (Auto) , Lymphocytes (%) (Auto) , Monocytes (%) (Auto) , Eosinophils (%) (Auto) , Basophils (%) (Auto) , Neutrophils % (Manual) [Pending], Lymphocytes % (Manual) [Pending], Platelet Estimate [Pending], Platelet Morphology [Pending], Sodium Level 139, Potassium Level 4.3, Chloride Level 108H, Carbon Dioxide Level 27, Anion Gap 4L, Blood Urea Nitrogen 36H, Creatinine 1.0, Estimat Glomerular Filtration Rate , Glucose Level 97, Calcium Level 10.1, Phosphorus Level 3.4, Magnesium Level 1.7L Height (Feet): 5 Height (Inches): 8.00 Weight (Pounds): 175 Objective WDWN NAD reduced breath sounds bilaterally without rhonchi or wheeze [id number] without MRG NABS;Gt in place; less distended no CC; trace edema nonfocal skin exam noted confused reviewed and examined Dustin Mary MD Sep 17, 2018 08:26
--- NOTE | 2018-09-17 08:33 | Hematology/Onc Progress Note ---
Assessment/Plan Assessment/Plan Assessment and Recs # Liver mass - large heterogeneous mass in the right lobe of the liver suspicious for malignant neoplasm --> imaging has been reviewed and c/w likely malignancy --> as per Gi recs, defer tumor biopsy, has been present prior admission --> treatment once have results of primary --> imaging as needed r/o ascites # Anemia of chronic disease due to underlying chronic medical issues, multifactorial --> Anemia workup has been ordered, rule out gi bleed, ferritin is 118 --> No evidence of hemolysis is noted, peripheral smear has been reviewed. --> Hgb goal >7. Transfuse prn. --> Epogen or iron at this time is not particularly indicated --> Medications have been reviewed --> improved trend 10-->11-->12-->11.8-->11.5-->11.4 # Hypercalcemia - on admission elev, due to likely dehydration --> Ca has improved, on ivf --> on IVF also for hypernatremia --> per renal recs # Fecal impaction/constipation --> on colace, senna as per gi # Abdominal distension --> improved mildly, per gi The timing of this note does not necessarily reflect the time of the patient was seen. GREATLY APPRECIATE CONSULTATION. Subjective Constitutional: Denies: no symptoms, chills, fever, malaise, weakness, other HEENT: Denies: no symptoms, eye pain, blurred vision, tearing, double vision, ear pain, ear discharge, nose pain, nose congestion, throat pain, throat swelling, mouth pain, mouth swelling, other Cardiovascular: Denies: no symptoms, chest pain, edema, irregular heart rate, lightheadedness, palpitations, syncope, other Gastrointestinal/Abdominal: Denies: no symptoms, abdomen distended, abdominal pain, black stools, tarry stools, blood in stool, constipated, diarrhea, difficulty swallowing, nausea, poor appetite, poor fluid intake, rectal bleeding , vomiting, other Genitourinary: Denies: no symptoms, burning, discharge, frequency, flank pain, hematuria, incontinence, pain, urgency, other Neurologic/Psychiatric: Denies: no symptoms, anxiety, depressed, emotional problems, headache, numbness, paresthesia, pre-existing deficit, seizure, tingling, tremors, weakness, other Endocrine: Denies: no symptoms, excessive sweating, flushing, intolerance to cold, intolerance to heat, increased hunger, increased thirst, increased urine, unexplained weight gain, unexplained weight loss, other Allergies: Coded Allergies: No Known Allergies (Verified , 06/07/08) Subjective 09/10: no bleeding, no night sweats, no events otherwise, labs pending 09/11: liver biopsy cancelled, no events, tumor markers neg 09/12: no events, no bleeding, h/h reviewed, no f/c 09/13: patient being turned every 2 hrs, seen by gi 09/14: no events, still with abd pain, imaging per gi 09/16: arousable, nonverbal, no events reported 09/17: 5.5L of fluid removed via para, no events otherwise, no f/c Objective Objective Current Medications Medications (Trade) Dose Ordered Sig/Reagan Route PRN Reason Start Time Stop Time Status Last Admin Dose Admin Acetaminophen (Tylenol) 650 mg Q4H PRN GT Mild Pain/Temp > 100.5 09/09/18 21:19 10/09/18 21:18 09/16/18 12:33 Artificial Tears (Akwa-Tears) 1 drop EVERY 12 HOURS BOTH EYES 09/15/18 21:00 10/15/18 20:59 09/16/18 21:15 Atorvastatin Calcium (Lipitor) 10 mg BEDTIME GT 09/10/18 21:00 10/04/18 20:59 09/16/18 21:15 Dextrose (Dextrose 50%) 25 ml Q30M PRN IV Hypoglycemia 09/09/18 21:30 10/03/18 21:29 Dextrose (Dextrose 50%) 50 ml Q30M PRN IV Hypoglycemia 09/09/18 21:30 10/03/18 21:29 Docusate Sodium (Colace) 100 mg BID GT 09/10/18 09:00 10/04/18 08:59 09/16/18 18:44 Donepezil HCl (Aricept) 10 mg BEDTIME GT 09/10/18 21:00 10/04/18 20:59 09/16/18 21:15 Heparin Sodium (Porcine) (Heparin 5000 units/ml) 5,000 units EVERY 12 HOURS SUBQ 09/10/18 09:00 10/04/18 08:59 09/16/18 21:16 Hydralazine HCl (Apresoline) 25 mg Q6H PRN GT For High Blood Pressure 09/09/18 21:20 10/09/18 21:19 09/16/18 05:06 Insulin Aspart (NovoLOG) EVERY 6 HOURS SUBQ 09/10/18 12:00 10/10/18 06:29 09/16/18 12:35 Insulin Detemir (Levemir) 5 units DAILY SUBQ 09/10/18 09:00 10/04/18 08:59 09/16/18 08:53 Lactulose (Cephulac) 10 gm THREE TIMES A DAY GT 09/10/18 09:00 10/08/18 12:59 09/16/18 18:44 Losartan Potassium (Cozaar) 100 mg DAILY GT 09/10/18 09:00 10/04/18 08:59 09/16/18 08:51 Magnesium Sulfate 100 ml @ 100 mls/hr Q1H IVPB 09/17/18 07:30 09/17/18 09:29 09/17/18 07:48 Metoclopramide HCl (Reglan) 5 mg Q8H PRN IVP Nausea & Vomiting 09/10/18 09:00 10/10/18 08:59 Mineral Oil (Mineral Oil) 30 ml DAILYPRN PRN GT Constipation 09/09/18 21:21 10/09/18 21:20 Polyethylene Glycol (Miralax) 17 gm BEDTIME GT 09/10/18 21:00 10/06/18 20:59 09/16/18 21:15 Sitagliptin Phosphate (Januvia) 100 mg DAILY GT 09/10/18 09:00 10/04/18 08:59 09/16/18 08:51 Vitamin D (Vitamin D) 1,000 intlu TWICE A DAY GT 09/10/18 09:00 10/04/18 08:59 09/16/18 18:44 Zinc Oxide (Desitin) 1 applic EVERY 8 HOURS TOPIC 09/10/18 14:00 10/08/18 10:29 09/17/18 05:39 Last 24 Hour Vital Signs Date Time Temp Pulse Resp B/P (MAP) Pulse Ox O2 Delivery O2 Flow Rate FiO2 09/17/18 07:15 95 Nasal Cannula 2.0 28 09/17/18 04:00 Room Air 09/17/18 04:00 98.1 63 19 130/58 (82) 95 09/17/18 03:35 110 09/17/18 00:00 98.2 70 19 122/58 (79) 96 09/17/18 00:00 Room Air 09/17/18 00:00 Room Air 09/16/18 23:33 112 09/16/18 21:58 93 Nasal Cannula 2.0 28 09/16/18 20:00 Room Air 09/16/18 20:00 97.9 105 19 100/55 (70) 99 09/16/18 19:53 123 09/16/18 16:00 Room Air 09/16/18 16:00 98.9 70 19 129/61 (83) 95 09/16/18 15:36 102 09/16/18 13:03 98.2 09/16/18 12:00 Room Air 09/16/18 12:00 101.5 71 19 132/56 (81) 95 09/16/18 11:58 74 09/16/18 08:51 125/70 09/16/18 08:00 Room Air 09/16/18 08:00 100.0 65 19 125/70 (88) 94 09/16/18 07:52 91 09/16/18 05:06 166/103 09/16/18 04:00 99.7 80 22 166/103 (124) 98 09/16/18 04:00 Room Air 09/16/18 03:33 92 09/16/18 00:00 98.2 133 28 135/74 (94) 95 09/16/18 00:00 Room Air 09/15/18 23:41 92 09/15/18 20:00 Room Air 09/15/18 20:00 98.2 77 26 149/57 (87) 96 09/15/18 19:47 101 09/15/18 16:00 Room Air 09/15/18 16:00 97.3 114 22 143/58 (86) 95 09/15/18 15:27 100 09/15/18 12:00 99.0 108 22 129/57 (81) 94 09/15/18 12:00 Room Air 09/15/18 11:31 114 09/15/18 08:40 117/45 Intake and Output 09/16/18 09/17/18 19:00 07:00 Output Total 5600 ml 200 ml Balance -5600 ml -200 ml Output Urine Total 100 ml 200 ml Other 5500 ml Labs Test 09/15/18 05:46 09/16/18 03:50 09/16/18 17:07 09/17/18 04:00 White Blood Count 16.0 K/UL (4.8-10.8) 10.2 K/UL (4.8-10.8) 6.1 K/UL (4.8-10.8) Red Blood Count 3.63 M/UL (4.70-6.10) 3.70 M/UL (4.70-6.10) 3.74 M/UL (4.70-6.10) Hemoglobin 11.3 G/DL (14.2-18.0) 11.5 G/DL (14.2-18.0) 11.4 G/DL (14.2-18.0) Hematocrit 34.1 % (42.0-52.0) 35.1 % (42.0-52.0) 35.7 % (42.0-52.0) Mean Corpuscular Volume 94 FL (80-99) 95 FL (80-99) 96 FL (80-99) Mean Corpuscular Hemoglobin 31.2 PG (27.0-31.0) 31.0 PG (27.0-31.0) 30.4 PG (27.0-31.0) Mean Corpuscular Hemoglobin Concent 33.3 G/DL (32.0-36.0) 32.7 G/DL (32.0-36.0) 31.8 G/DL (32.0-36.0) Red Cell Distribution Width 14.0 % (11.6-14.8) 14.3 % (11.6-14.8) 14.2 % (11.6-14.8) Platelet Count 193 K/UL (150-450) 206 K/UL (150-450) 162 K/UL (150-450) Mean Platelet Volume 5.9 FL (6.5-10.1) 5.8 FL (6.5-10.1) 6.2 FL (6.5-10.1) Neutrophils (%) (Auto) % (45.0-75.0) % (45.0-75.0) % (45.0-75.0) Lymphocytes (%) (Auto) % (20.0-45.0) % (20.0-45.0) % (20.0-45.0) Monocytes (%) (Auto) % (1.0-10.0) % (1.0-10.0) % (1.0-10.0) Eosinophils (%) (Auto) % (0.0-3.0) % (0.0-3.0) % (0.0-3.0) Basophils (%) (Auto) % (0.0-2.0) % (0.0-2.0) % (0.0-2.0) Differential Total Cells Counted 100 100 Neutrophils % (Manual) 79 % (45-75) 84 % (45-75) Lymphocytes % (Manual) 10 % (20-45) 8 % (20-45) Monocytes % (Manual) 6 % (1-10) 6 % (1-10) Eosinophils % (Manual) 0 % (0-3) 0 % (0-3) Basophils % (Manual) 0 % (0-2) 0 % (0-2) Band Neutrophils 5 % (0-8) 2 % (0-8) Platelet Estimate Adequate Adequate Platelet Morphology Normal Normal Anisocytosis 1+ Prothrombin Time 11.5 SEC (9.30-11.50) Prothromb Time International Ratio 1.1 (0.9-1.1) Activated Partial Thromboplast Time 35 SEC (23-33) Sodium Level 141 MMOL/L (136-145) 138 MMOL/L (136-145) 139 MMOL/L (136-145) Potassium Level 4.0 MMOL/L (3.5-5.1) 4.7 MMOL/L (3.5-5.1) 4.3 MMOL/L (3.5-5.1) Chloride Level 108 MMOL/L (98-107) 105 MMOL/L (98-107) 108 MMOL/L (98-107) Carbon Dioxide Level 26 MMOL/L (21-32) 26 MMOL/L (21-32) 27 MMOL/L (21-32) Anion Gap 7 mmol/L (5-15) 7 mmol/L (5-15) 4 mmol/L (5-15) Blood Urea Nitrogen 21 mg/dL (7-18) 26 mg/dL (7-18) 36 mg/dL (7-18) Creatinine 0.9 MG/DL (0.55-1.30) 0.9 MG/DL (0.55-1.30) 1.0 MG/DL (0.55-1.30) Estimat Glomerular Filtration Rate mL/min (>60) mL/min (>60) mL/min (>60) Glucose Level 146 MG/DL (74-106) 188 MG/DL (74-106) 97 MG/DL (74-106) Calcium Level 10.1 MG/DL (8.5-10.1) 10.3 MG/DL (8.5-10.1) 10.1 MG/DL (8.5-10.1) Total Bilirubin 0.8 MG/DL (0.2-1.0) Aspartate Amino Transf (AST/SGOT) 44 U/L (15-37) Alanine Aminotransferase (ALT/SGPT) 9 U/L (12-78) Alkaline Phosphatase 257 U/L (46-116) Total Protein 5.5 G/DL (6.4-8.2) Albumin 1.4 G/DL (3.4-5.0) Globulin 4.1 g/dL Albumin/Globulin Ratio 0.3 (1.0-2.7) Phosphorus Level 3.1 MG/DL (2.5-4.9) 3.4 MG/DL (2.5-4.9) Magnesium Level 1.8 MG/DL (1.8-2.4) 1.7 MG/DL (1.8-2.4) Body Fluid Source Paracentesis Body Fluid Volume 24 ml mL Body Fluid Appearance Colorless/clear (Clear) Body Fluid RBC 18 /CUMM Body Fluid Total Nucleated Cells 78 /CUMM Body Fluid Polynuclear WBCs (%) 7 % Body Fluid Mononuclear WBCs (%) 91 % Body Fluid Mesothelial Cells (%) 2 % Micro Microbiology Date/Time Source Procedure Growth Status 09/16/18 17:07 Abdominal Fluid Gram Stain - Final Resulted 09/16/18 17:07 Abdominal Fluid Body Fluid Culture - Preliminary NO GROWTH Resulted Height (Feet): 5 Height (Inches): 8.00 Weight (Pounds): 175 Objective Gen: well appearing, no apparent distress, alert Head: normocephalic EENT: PERRL/EOMI, normal ENT inspection Pulm: normal breath sounds, no respiratory distress CV: rrr. no mgr GI: normal inspection, non tender, soft, normal bowel sounds, non-distended ++ gtube Rectal: deferred Gu: deferred Musculoskeletal: normal inspection, back normal Neurologic: normal inspection, alert, oriented x3, responsive Psychiatric: normal inspection, judgement/insight normal, memory normal Skin: normal inspection, normal color, no rash, warm/dry, palpation normal, well hydrated Fadi Vicente MD Sep 17, 2018 08:33
[2018-09-17] MEDS: Docusate 100mg/10ml Liq GT SCH ×2 (08:53→18:00)
[2018-09-17] MEDS: Vitamin D 1000 IU Tab GT SCH ×2 (08:53→18:49)
[2018-09-17] MEDS: Lactulose 10gm/15ml UDC GT SCH ×3 (08:53→18:00)
[2018-09-17] MEDS: Artificial Tears 1.4% Op Soln BOTH EYES SCH ×2 (08:53→20:57)
[2018-09-17] MEDS: Acetaminophen 650mg/20.3ml GT PRN (08:54)
[2018-09-17] MEDS: Losartan 50mg tab GT SCH (08:54)
[2018-09-17] MEDS: Heparin 5000 units/ml inj SUBQ SCH ×2 (08:57→21:03)
--- NOTE | 2018-09-17 08:58 | GI Progress Note ---
Assessment/Plan Problems: (1) Anemia ICD Codes: D64.9 - Anemia, unspecified SNOMED: 460584401 (2) Liver mass ICD Codes: R16.0 - Hepatomegaly, not elsewhere classified SNOMED: 480552607 (3) Fecal impaction ICD Codes: K56.41 - Fecal impaction SNOMED: 03135892 (4) CVA (cerebral vascular accident) ICD Codes: I63.9 - CVA (cerebral vascular accident) SNOMED: 413711079 (5) G tube feedings ICD Codes: Z93.1 - Gastrostomy status SNOMED: 504893373, 416539046, 222835156 (6) Abdominal distension ICD Codes: R14.0 - Abdominal distension (gaseous) SNOMED: 99973138 (7) Constipation ICD Codes: K59.00 - Constipation, unspecified SNOMED: 74786073 Qualifiers: Qualified Codes: K59.00 - Constipation, unspecified Status: progressing Status Narrative Discussed with Dr. Gonzales Assessment/Plan Status post paracentesis yielding 5.5 L of fluid GT was changed at the bedside G-tube feedings Reglan low dose Monitor H&H, PRN transfusions Turn patient every 2 hours bowel regimen The patient was seen and examined at bedside and all new and available data was reviewed in the patients chart. I agree with the above findings, impression and plan. (Patient seen earlier today. Signature stamp does not reflect patient encounter time.). - Demetris Gonzales MD Subjective Subjective Limited Objective Last 24 Hour Vital Signs Date Time Temp Pulse Resp B/P (MAP) Pulse Ox O2 Delivery O2 Flow Rate FiO2 09/17/18 08:00 Room Air 09/17/18 07:15 95 Nasal Cannula 2.0 28 09/17/18 04:00 Room Air 09/17/18 04:00 98.1 63 19 130/58 (82) 95 09/17/18 03:35 110 09/17/18 00:00 98.2 70 19 122/58 (79) 96 09/17/18 00:00 Room Air 09/17/18 00:00 Room Air 09/16/18 23:33 112 09/16/18 21:58 93 Nasal Cannula 2.0 28 09/16/18 20:00 Room Air 09/16/18 20:00 97.9 105 19 100/55 (70) 99 09/16/18 19:53 123 09/16/18 16:00 Room Air 09/16/18 16:00 98.9 70 19 129/61 (83) 95 09/16/18 15:36 102 09/16/18 13:03 98.2 09/16/18 12:00 Room Air 09/16/18 12:00 101.5 71 19 132/56 (81) 95 09/16/18 11:58 74 Intake and Output 09/16/18 09/17/18 18:59 06:59 Output Total 5600 ml 200 ml Balance -5600 ml -200 ml Output Urine Total 100 ml 200 ml Other 5500 ml Laboratory Tests Test 09/16/18 17:07 09/17/18 04:00 Body Fluid Source Paracentesis Body Fluid Volume 24 ml mL Body Fluid Appearance Colorless/clear (Clear) Body Fluid RBC 18 /CUMM Body Fluid Total Nucleated Cells 78 /CUMM Body Fluid Polynuclear WBCs (%) 7 % Body Fluid Mononuclear WBCs (%) 91 % Body Fluid Mesothelial Cells (%) 2 % Body Fluid Albumin Pending White Blood Count 6.1 K/UL (4.8-10.8) Red Blood Count 3.74 M/UL (4.70-6.10) L Hemoglobin 11.4 G/DL (14.2-18.0) L Hematocrit 35.7 % (42.0-52.0) L Mean Corpuscular Volume 96 FL (80-99) Mean Corpuscular Hemoglobin 30.4 PG (27.0-31.0) Mean Corpuscular Hemoglobin Concent 31.8 G/DL (32.0-36.0) L Red Cell Distribution Width 14.2 % (11.6-14.8) Platelet Count 162 K/UL (150-450) Mean Platelet Volume 6.2 FL (6.5-10.1) L Neutrophils (%) (Auto) % (45.0-75.0) Lymphocytes (%) (Auto) % (20.0-45.0) Monocytes (%) (Auto) % (1.0-10.0) Eosinophils (%) (Auto) % (0.0-3.0) Basophils (%) (Auto) % (0.0-2.0) Differential Total Cells Counted 100 Neutrophils % (Manual) 83 % (45-75) H Lymphocytes % (Manual) 7 % (20-45) L Monocytes % (Manual) 4 % (1-10) Eosinophils % (Manual) 0 % (0-3) Basophils % (Manual) 0 % (0-2) Band Neutrophils 6 % (0-8) Platelet Estimate Adequate Platelet Morphology Normal Sodium Level 139 MMOL/L (136-145) Potassium Level 4.3 MMOL/L (3.5-5.1) Chloride Level 108 MMOL/L (98-107) H Carbon Dioxide Level 27 MMOL/L (21-32) Anion Gap 4 mmol/L (5-15) L Blood Urea Nitrogen 36 mg/dL (7-18) H Creatinine 1.0 MG/DL (0.55-1.30) Estimat Glomerular Filtration Rate mL/min (>60) Glucose Level 97 MG/DL (74-106) Calcium Level 10.1 MG/DL (8.5-10.1) Phosphorus Level 3.4 MG/DL (2.5-4.9) Magnesium Level 1.7 MG/DL (1.8-2.4) L Microbiology Date/Time Source Procedure Growth Status 09/16/18 17:07 Abdominal Fluid Gram Stain - Final Resulted 09/16/18 17:07 Abdominal Fluid Body Fluid Culture - Preliminary NO GROWTH Resulted Height (Feet): 5 Height (Inches): 8.00 Weight (Pounds): 175 General Appearance: alert Cardiovascular: normal rate Respiratory/Chest: normal breath sounds Abdominal Exam: distended - Improved Michelle Samuel NP Sep 17, 2018 08:57
[2018-09-17] MEDS: Levemir Flexpen SUBQ SCH (09:01)
--- NOTE | 2018-09-17 11:55 | NUR ---
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 S/P PARACENTESIS VS; BP 130/58, P 123, T 100.7, RR 93, SpO2 93 RBC 3.74, H&H 11.4/35.7, BUN 36 IS:MAGNESIUM SULFATE 100ml IVPB ARICEPT 10mg NOVOLOG SUBQ COLACE 100mg COZAAR 100mg JANUVIA 100mg PLAN: GT FEEDINGS SDU STATUS
[2018-09-17 12:00] VITALS: BP 106/44
--- NOTE | 2018-09-17 12:45 | Diagnostic Imaging Report ---
Indication: Shortness of breath Technique: One view of the chest Comparison: 09/09/2018 Findings: There is increased pleural fluid and increased interstitial congestion on the right side. Left perihilar congestive changes and retrocardiac consolidative changes may be slightly worse as well, and there is suggestion of minimal left pleural fluid which may be slightly increased. The heart is borderline enlarged. Left chest pacemaker again demonstrated Impression: Increased right greater than left interstitial congestion and pleural fluid, since prior exam of 09/09/2018
--- NOTE | 2018-09-17 14:42 | General Progress Note ---
Progress Note Progress Note Doing better abdominal exam much improved no distention now soft, non tender having BM's cont with diet as tolerated okay to d/c from surgical standpoint Jesse Cash Sep 17, 2018 14:42
[2018-09-17 16:00] VITALS: BP 101/59
--- NOTE | 2018-09-17 19:05 | NUR ---
NURSE NOTES: Pt report received from Leslie CARIAS RN. pt is resting in bed. pt has a child monitor attached and is able to display on the monitor, showing SR with BBB bigemeny and PVC, no other signs symptoms of acute cardiac distress noted. pt is on 2L NC fo maintain O2 sat greater than 92%. crackles noted on auscultation and will advise deep suctioning to maintain O2 greater than 92%. pt has a R AC 20G able to flush, no abnormalities noted, pt has Glucerna 1.5 running via G tube running at 20cc/ hr as adjusted per residual. (residual greater than 100cc with ordered 45cc/hr rate). pt has a johnston able to drain to gravity, no abnormalities noted. bed rails are up times 3, bed locked and low, call light within reach, bed armed. will continue plan of care.
--- NOTE | 2018-09-17 19:30 | NUR ---
HAND-OFF: Report given to Gallo GUEVARA. Pt. remain stable.
--- NOTE | 2018-09-17 19:48 | NUR ---
NURSE NOTES: Messaged MD Mary in relation to Pt nurse monitoring reading showing SR with BBB and Bigeminy and PVC.
[2018-09-17 20:00] VITALS: BP 109/53
[2018-09-17] MEDS: Miralax 17gm pkt GT SCH (21:00)
[2018-09-17] MEDS: Donepezil 10mg tab GT SCH (21:02)
[2018-09-18] VITALS: BP 101/55
[2018-09-18] MEDS: NovoLOG Insulin Flexpen SUBQ SCH ×5 (00:13→23:15)
[2018-09-18 04:00] VITALS: BP 99/58
[2018-09-18] MEDS: Desitin Rash Paste TOPIC SCH ×3 (05:12→21:16)
[2018-09-18 05:15] LABS: BASOPHILS % (AUTO) 0.3 % (0.0-2.0); EOSINOPHILS % (AUTO) 0.1 % (0.0-3.0); HEMATOCRIT 36.3 % (42.0-52.0); HEMOGLOBIN 11.6 G/DL (14.2-18.0); LYMPHOCYTES % (AUTO) 8.2 % (20.0-45.0); MEAN CORPUSCULAR VOLUME 96 FL (80-99); MONOCYTES % (AUTO) 8.5 % (1.0-10.0); PLATELET COUNT 153 K/UL (150-450); RED BLOOD COUNT 3.79 M/UL (4.70-6.10); RED CELL DISTRIBUTION WIDTH 14.5 % (11.6-14.8); WHITE BLOOD COUNT 11.3 K/UL (4.8-10.8)
[2018-09-18 05:33] LABS: ALANINE AMINOTRANSFERASE 14 U/L (12-78); ALBUMIN 1.2 G/DL (3.4-5.0); ALBUMIN/GLOBULIN RATIO 0.3 (1.0-2.7); ALKALINE PHOSPHATASE 269 U/L (46-116); ANION GAP 5 mmol/L (5-15); ASPARTATE AMINO TRANSFERASE 74 U/L (15-37); BILIRUBIN,TOTAL 0.4 MG/DL (0.2-1.0); BLOOD UREA NITROGEN 49 mg/dL (7-18); CALCIUM 10.1 MG/DL (8.5-10.1); CARBON DIOXIDE 27 MMOL/L (21-32); CHLORIDE 107 MMOL/L (98-107); CREATININE 1.4 MG/DL (0.55-1.30); POTASSIUM 4.5 MMOL/L (3.5-5.1); SODIUM 139 MMOL/L (136-145)
--- NOTE | 2018-09-18 05:52 | NUR ---
NURSE NOTES: called and left a message to MD Mary regarding pts WBC 11.3. awaiting new orders.
--- NOTE | 2018-09-18 05:54 | NUR ---
NURSE NOTES: left a message to MD Mary regarding pts WBC 11.3. awaiting new orders.
--- NOTE | 2018-09-18 07:19 | NUR ---
HAND-OFF: Report given to Lorena CARIAS.
--- NOTE | 2018-09-18 07:20 | NUR ---
NURSE NOTES: Report received from ISMAEL Holder. Observed patient in bed sleeping. Open eyes with touching, but non-verbal. With 2L of oxygen via N/C with no distress noted. GT site intact with ongoing feeding. HOB elevated. No residual noted. F/C intact and patent. No s/s of pain at this time. IV site intact and patent. Bed in lowest position. Call light within reach. Will continue to monitor.
[2018-09-18 08:00] VITALS: BP 102/51
[2018-09-18] MEDS: Losartan 50mg tab GT SCH (08:13)
[2018-09-18] MEDS: Lactulose 10gm/15ml UDC GT SCH ×3 (09:09→17:15)
[2018-09-18] MEDS: Docusate 100mg/10ml Liq GT SCH ×2 (09:09→17:15)
[2018-09-18] MEDS: Vitamin D 1000 IU Tab GT SCH ×2 (09:09→17:15)
[2018-09-18] MEDS: Levemir Flexpen SUBQ SCH (09:18)
[2018-09-18] MEDS: Heparin 5000 units/ml inj SUBQ SCH ×2 (09:19→20:23)
[2018-09-18] MEDS: Artificial Tears 1.4% Op Soln BOTH EYES SCH ×2 (09:23→20:24)
--- NOTE | 2018-09-18 09:42 | NUR ---
NURSE NOTES: Informed Dr. Mary regarding decreased in urine output. 50cc urine output from last shift. No new order at this time.
--- NOTE | 2018-09-18 09:42 | NUR ---
NURSE NOTES: Called and left message to Dr. Mary regarding abnormal lab results with no new order at this time.
--- NOTE | 2018-09-18 10:39 | GI Progress Note ---
Assessment/Plan Problems: (1) Anemia ICD Codes: D64.9 - Anemia, unspecified SNOMED: 443936988 (2) Liver mass ICD Codes: R16.0 - Hepatomegaly, not elsewhere classified SNOMED: 263167707 (3) Fecal impaction ICD Codes: K56.41 - Fecal impaction SNOMED: 44110440 (4) CVA (cerebral vascular accident) ICD Codes: I63.9 - CVA (cerebral vascular accident) SNOMED: 802298901 (5) G tube feedings ICD Codes: Z93.1 - Gastrostomy status SNOMED: 986857688, 535144962, 413120135 (6) Abdominal distension ICD Codes: R14.0 - Abdominal distension (gaseous) SNOMED: 96694520 (7) Constipation ICD Codes: K59.00 - Constipation, unspecified SNOMED: 10050092 Qualifiers: Qualified Codes: K59.00 - Constipation, unspecified Status: stable, unchanged Status Narrative Discussed with Dr. Gonzales. Assessment/Plan Status post paracentesis yielding 5.5 L of fluid GT was changed at the bedside G-tube feedings Reglan low dose Monitor H&H, PRN transfusions Turn patient every 2 hours bowel regimen The patient was seen and examined at bedside and all new and available data was reviewed in the patients chart. I agree with the above findings, impression and plan. (Patient seen earlier today. Signature stamp does not reflect patient encounter time.). - Demetris Gonzales MD Subjective Subjective Limited Objective Last 24 Hour Vital Signs Date Time Temp Pulse Resp B/P (MAP) Pulse Ox O2 Delivery O2 Flow Rate FiO2 09/18/18 08:13 102/51 09/18/18 08:00 91 09/18/18 08:00 97.3 82 19 102/51 (68) 98 09/18/18 08:00 Nasal Cannula 2.0 09/18/18 04:00 97.8 82 18 99/58 (72) 96 09/18/18 04:00 Room Air 09/18/18 03:46 98 09/18/18 00:00 97.6 93 18 101/55 (70) 94 09/18/18 00:00 Room Air 09/17/18 23:27 93 09/17/18 20:16 96 Nasal Cannula 2.0 28 09/17/18 20:00 Room Air 09/17/18 20:00 98.0 70 18 109/53 (71) 96 09/17/18 19:36 93 09/17/18 16:15 91 09/17/18 16:00 98.1 82 18 101/59 (73) 97 09/17/18 16:00 Room Air 09/17/18 12:46 69 09/17/18 12:00 Room Air 09/17/18 12:00 97.3 83 21 106/44 (64) 97 Intake and Output 09/17/18 09/18/18 19:00 07:00 Intake Total 255 ml 450 ml Output Total 200 ml 100 ml Balance 55 ml 350 ml Intake Free Water 100 ml 100 ml Tube Feeding 155 ml 350 ml Output Urine Total 200 ml 100 ml # Bowel Movements 1 Laboratory Tests Test 09/18/18 03:00 White Blood Count 11.3 K/UL (4.8-10.8) #H Red Blood Count 3.79 M/UL (4.70-6.10) L Hemoglobin 11.6 G/DL (14.2-18.0) L Hematocrit 36.3 % (42.0-52.0) L Mean Corpuscular Volume 96 FL (80-99) Mean Corpuscular Hemoglobin 30.6 PG (27.0-31.0) Mean Corpuscular Hemoglobin Concent 31.9 G/DL (32.0-36.0) L Red Cell Distribution Width 14.5 % (11.6-14.8) Platelet Count 153 K/UL (150-450) Mean Platelet Volume 6.9 FL (6.5-10.1) Neutrophils (%) (Auto) 83.0 % (45.0-75.0) H Lymphocytes (%) (Auto) 8.2 % (20.0-45.0) L Monocytes (%) (Auto) 8.5 % (1.0-10.0) Eosinophils (%) (Auto) 0.1 % (0.0-3.0) Basophils (%) (Auto) 0.3 % (0.0-2.0) Sodium Level 139 MMOL/L (136-145) Potassium Level 4.5 MMOL/L (3.5-5.1) Chloride Level 107 MMOL/L (98-107) Carbon Dioxide Level 27 MMOL/L (21-32) Anion Gap 5 mmol/L (5-15) Blood Urea Nitrogen 49 mg/dL (7-18) H Creatinine 1.4 MG/DL (0.55-1.30) H Estimat Glomerular Filtration Rate mL/min (>60) Glucose Level 162 MG/DL (74-106) H Calcium Level 10.1 MG/DL (8.5-10.1) Total Bilirubin 0.4 MG/DL (0.2-1.0) Aspartate Amino Transf (AST/SGOT) 74 U/L (15-37) H Alanine Aminotransferase (ALT/SGPT) 14 U/L (12-78) Alkaline Phosphatase 269 U/L (46-116) H Total Protein 5.3 G/DL (6.4-8.2) L Albumin 1.2 G/DL (3.4-5.0) L Globulin 4.1 g/dL Albumin/Globulin Ratio 0.3 (1.0-2.7) L Height (Feet): 5 Height (Inches): 8.00 Weight (Pounds): 173 General Appearance: alert Cardiovascular: normal rate Respiratory/Chest: normal breath sounds Abdominal Exam: soft Michelle Samuel NP Sep 18, 2018 10:39
[2018-09-18 11:50] VITALS: BP 105/50
--- NOTE | 2018-09-18 13:01 | Hematology/Onc Progress Note ---
Assessment/Plan Assessment/Plan Assessment and Recs # Liver mass - large heterogeneous mass in the right lobe of the liver suspicious for malignant neoplasm --> imaging has been reviewed and c/w likely malignancy --> as per Gi recs, defer tumor biopsy, has been present prior admission --> treatment once have results of primary --> imaging as needed r/o ascites --> tumor markers reviewed are wnl # Anemia of chronic disease due to underlying chronic medical issues, multifactorial --> Anemia workup has been ordered, rule out gi bleed, ferritin is 118 --> No evidence of hemolysis is noted, peripheral smear has been reviewed. --> Hgb goal >7. Transfuse prn. --> Epogen or iron at this time is not particularly indicated --> Medications have been reviewed --> improved trend 10-->11-->12-->11.8-->11.5-->11.4 # Hypercalcemia - on admission elev, due to likely dehydration --> Ca has improved, on ivf --> on IVF also for hypernatremia --> per renal recs # Fecal impaction/constipation --> on colace, senna as per gi # Abdominal distension --> improved mildly, per gi The timing of this note does not necessarily reflect the time of the patient was seen. GREATLY APPRECIATE CONSULTATION. Subjective Constitutional: Denies: no symptoms, chills, fever, malaise, weakness, other Respiratory: Denies: no symptoms, cough, shortness of breath, SOB with excertion, SOB at rest, sputum, wheezing, other Gastrointestinal/Abdominal: Denies: no symptoms, abdomen distended, abdominal pain, black stools, tarry stools, blood in stool, constipated, diarrhea, difficulty swallowing, nausea, poor appetite, poor fluid intake, rectal bleeding , vomiting, other Genitourinary: Denies: no symptoms, burning, discharge, frequency, flank pain, hematuria, incontinence, pain, urgency, other Neurologic/Psychiatric: Denies: no symptoms, anxiety, depressed, emotional problems, headache, numbness, paresthesia, pre-existing deficit, seizure, tingling, tremors, weakness, other Endocrine: Denies: no symptoms, excessive sweating, flushing, intolerance to cold, intolerance to heat, increased hunger, increased thirst, increased urine, unexplained weight gain, unexplained weight loss, other Hematologic/Lymphatic: Denies: no symptoms, anemia, easy bleeding, easy bruising, adenopathy, other Allergies: Coded Allergies: No Known Allergies (Verified , 06/07/08) Subjective 09/10: no bleeding, no night sweats, no events otherwise, labs pending 09/11: liver biopsy cancelled, no events, tumor markers neg 09/12: no events, no bleeding, h/h reviewed, no f/c 09/13: patient being turned every 2 hrs, seen by gi 09/14: no events, still with abd pain, imaging per gi 09/16: arousable, nonverbal, no events reported 09/17: 5.5L of fluid removed via para, no events otherwise, no f/c 09/18: seen by pulm, gi, no events, wbc is 11.3 Objective Objective Current Medications Medications (Trade) Dose Ordered Sig/Reagan Route PRN Reason Start Time Stop Time Status Last Admin Dose Admin Acetaminophen (Tylenol) 650 mg Q4H PRN GT Mild Pain/Temp > 100.5 09/09/18 21:19 10/09/18 21:18 09/17/18 08:54 Artificial Tears (Akwa-Tears) 1 drop EVERY 12 HOURS BOTH EYES 09/15/18 21:00 10/15/18 20:59 09/18/18 09:23 Atorvastatin Calcium (Lipitor) 10 mg BEDTIME GT 09/10/18 21:00 10/04/18 20:59 09/17/18 21:02 Dextrose (Dextrose 50%) 25 ml Q30M PRN IV Hypoglycemia 09/09/18 21:30 10/03/18 21:29 Dextrose (Dextrose 50%) 50 ml Q30M PRN IV Hypoglycemia 09/09/18 21:30 10/03/18 21:29 Docusate Sodium (Colace) 100 mg BID GT 09/10/18 09:00 10/04/18 08:59 09/18/18 09:09 Donepezil HCl (Aricept) 10 mg BEDTIME GT 09/10/18 21:00 10/04/18 20:59 09/17/18 21:02 Heparin Sodium (Porcine) (Heparin 5000 units/ml) 5,000 units EVERY 12 HOURS SUBQ 09/10/18 09:00 10/04/18 08:59 09/18/18 09:19 Hydralazine HCl (Apresoline) 25 mg Q6H PRN GT For High Blood Pressure 09/09/18 21:20 10/09/18 21:19 09/16/18 05:06 Insulin Aspart (NovoLOG) EVERY 6 HOURS SUBQ 09/10/18 12:00 10/10/18 06:29 09/18/18 11:18 Insulin Detemir (Levemir) 5 units DAILY SUBQ 09/10/18 09:00 10/04/18 08:59 09/18/18 09:18 Lactulose (Cephulac) 10 gm THREE TIMES A DAY GT 09/10/18 09:00 10/08/18 12:59 09/18/18 09:09 Losartan Potassium (Cozaar) 100 mg DAILY GT 09/10/18 09:00 10/04/18 08:59 09/16/18 08:51 Metoclopramide HCl (Reglan) 5 mg Q8H PRN IVP Nausea & Vomiting 09/10/18 09:00 10/10/18 08:59 Mineral Oil (Mineral Oil) 30 ml DAILYPRN PRN GT Constipation 09/09/18 21:21 10/09/18 21:20 Polyethylene Glycol (Miralax) 17 gm BEDTIME GT 09/10/18 21:00 10/06/18 20:59 09/16/18 21:15 Sitagliptin Phosphate (Januvia) 100 mg DAILY GT 09/10/18 09:00 10/04/18 08:59 09/18/18 09:10 Vitamin D (Vitamin D) 1,000 intlu TWICE A DAY GT 09/10/18 09:00 10/04/18 08:59 09/18/18 09:09 Zinc Oxide (Desitin) 1 applic EVERY 8 HOURS TOPIC 09/10/18 14:00 10/08/18 10:29 09/18/18 05:12 Last 24 Hour Vital Signs Date Time Temp Pulse Resp B/P (MAP) Pulse Ox O2 Delivery O2 Flow Rate FiO2 09/18/18 11:50 96.6 89 22 105/50 (68) 100 09/18/18 08:13 102/51 09/18/18 08:00 91 09/18/18 08:00 97.3 82 19 102/51 (68) 98 7/17/19 08:00 Nasal Cannula 2.0 09/18/18 04:00 97.8 82 18 99/58 (72) 96 09/18/18 04:00 Room Air 09/18/18 03:46 98 09/18/18 00:00 97.6 93 18 101/55 (70) 94 09/18/18 00:00 Room Air 09/17/18 23:27 93 09/17/18 20:16 96 Nasal Cannula 2.0 28 09/17/18 20:00 Room Air 09/17/18 20:00 98.0 70 18 109/53 (71) 96 09/17/18 19:36 93 09/17/18 16:15 91 09/17/18 16:00 98.1 82 18 101/59 (73) 97 09/17/18 16:00 Room Air 09/17/18 12:46 69 09/17/18 12:00 Room Air 09/17/18 12:00 97.3 83 21 106/44 (64) 97 09/17/18 09:24 97.5 09/17/18 08:54 108/68 09/17/18 08:00 100.7 117 17 108/68 (81) 93 09/17/18 08:00 Room Air 09/17/18 07:49 123 09/17/18 07:15 95 Nasal Cannula 2.0 28 09/17/18 04:00 Room Air 09/17/18 04:00 98.1 63 19 130/58 (82) 95 09/17/18 03:35 110 09/17/18 00:00 98.2 70 19 122/58 (79) 96 09/17/18 00:00 Room Air 09/17/18 00:00 Room Air 09/16/18 23:33 112 09/16/18 21:58 93 Nasal Cannula 2.0 28 09/16/18 20:00 Room Air 09/16/18 20:00 97.9 105 19 100/55 (70) 99 09/16/18 19:53 123 09/16/18 16:00 Room Air 09/16/18 16:00 98.9 70 19 129/61 (83) 95 09/16/18 15:36 102 Intake and Output 09/17/18 09/18/18 19:00 07:00 Intake Total 255 ml 450 ml Output Total 200 ml 100 ml Balance 55 ml 350 ml Intake Free Water 100 ml 100 ml Tube Feeding 155 ml 350 ml Output Urine Total 200 ml 100 ml # Bowel Movements 1 Labs Test 09/16/18 03:50 09/16/18 17:07 09/17/18 04:00 09/17/18 10:20 White Blood Count 10.2 K/UL (4.8-10.8) 6.1 K/UL (4.8-10.8) Red Blood Count 3.70 M/UL (4.70-6.10) 3.74 M/UL (4.70-6.10) Hemoglobin 11.5 G/DL (14.2-18.0) 11.4 G/DL (14.2-18.0) Hematocrit 35.1 % (42.0-52.0) 35.7 % (42.0-52.0) Mean Corpuscular Volume 95 FL (80-99) 96 FL (80-99) Mean Corpuscular Hemoglobin 31.0 PG (27.0-31.0) 30.4 PG (27.0-31.0) Mean Corpuscular Hemoglobin Concent 32.7 G/DL (32.0-36.0) 31.8 G/DL (32.0-36.0) Red Cell Distribution Width 14.3 % (11.6-14.8) 14.2 % (11.6-14.8) Platelet Count 206 K/UL (150-450) 162 K/UL (150-450) Mean Platelet Volume 5.8 FL (6.5-10.1) 6.2 FL (6.5-10.1) Neutrophils (%) (Auto) % (45.0-75.0) % (45.0-75.0) Lymphocytes (%) (Auto) % (20.0-45.0) % (20.0-45.0) Monocytes (%) (Auto) % (1.0-10.0) % (1.0-10.0) Eosinophils (%) (Auto) % (0.0-3.0) % (0.0-3.0) Basophils (%) (Auto) % (0.0-2.0) % (0.0-2.0) Differential Total Cells Counted 100 100 Neutrophils % (Manual) 84 % (45-75) 83 % (45-75) Lymphocytes % (Manual) 8 % (20-45) 7 % (20-45) Monocytes % (Manual) 6 % (1-10) 4 % (1-10) Eosinophils % (Manual) 0 % (0-3) 0 % (0-3) Basophils % (Manual) 0 % (0-2) 0 % (0-2) Band Neutrophils 2 % (0-8) 6 % (0-8) Platelet Estimate Adequate Adequate Platelet Morphology Normal Normal Sodium Level 138 MMOL/L (136-145) 139 MMOL/L (136-145) Potassium Level 4.7 MMOL/L (3.5-5.1) 4.3 MMOL/L (3.5-5.1) Chloride Level 105 MMOL/L (98-107) 108 MMOL/L (98-107) Carbon Dioxide Level 26 MMOL/L (21-32) 27 MMOL/L (21-32) Anion Gap 7 mmol/L (5-15) 4 mmol/L (5-15) Blood Urea Nitrogen 26 mg/dL (7-18) 36 mg/dL (7-18) Creatinine 0.9 MG/DL (0.55-1.30) 1.0 MG/DL (0.55-1.30) Estimat Glomerular Filtration Rate mL/min (>60) mL/min (>60) Glucose Level 188 MG/DL (74-106) 97 MG/DL (74-106) Calcium Level 10.3 MG/DL (8.5-10.1) 10.1 MG/DL (8.5-10.1) Phosphorus Level 3.1 MG/DL (2.5-4.9) 3.4 MG/DL (2.5-4.9) Magnesium Level 1.8 MG/DL (1.8-2.4) 1.7 MG/DL (1.8-2.4) Body Fluid Source Paracentesis Body Fluid Volume 24 ml mL Body Fluid Appearance Colorless/clear (Clear) Body Fluid RBC 18 /CUMM Body Fluid Total Nucleated Cells 78 /CUMM Body Fluid Polynuclear WBCs (%) 7 % Body Fluid Mononuclear WBCs (%) 91 % Body Fluid Mesothelial Cells (%) 2 % Body Fluid Albumin 0.3 g/dL (.) Arterial Blood pH 7.394 (7.350-7.450) Arterial Blood Partial Pressure CO2 41.5 mmHg (35.0-45.0) Arterial Blood Partial Pressure O2 87.1 mmHg (75.0-100.0) Arterial Blood HCO3 24.8 mmol/L (22.0-26.0) Arterial Blood Oxygen Saturation 95.7 % (95-100) Arterial Blood Base Excess -0.1 (-2-2) Juan Alberto Test Positive Test 09/18/18 03:00 White Blood Count 11.3 K/UL (4.8-10.8) Red Blood Count 3.79 M/UL (4.70-6.10) Hemoglobin 11.6 G/DL (14.2-18.0) Hematocrit 36.3 % (42.0-52.0) Mean Corpuscular Volume 96 FL (80-99) Mean Corpuscular Hemoglobin 30.6 PG (27.0-31.0) Mean Corpuscular Hemoglobin Concent 31.9 G/DL (32.0-36.0) Red Cell Distribution Width 14.5 % (11.6-14.8) Platelet Count 153 K/UL (150-450) Mean Platelet Volume 6.9 FL (6.5-10.1) Neutrophils (%) (Auto) 83.0 % (45.0-75.0) Lymphocytes (%) (Auto) 8.2 % (20.0-45.0) Monocytes (%) (Auto) 8.5 % (1.0-10.0) Eosinophils (%) (Auto) 0.1 % (0.0-3.0) Basophils (%) (Auto) 0.3 % (0.0-2.0) Sodium Level 139 MMOL/L (136-145) Potassium Level 4.5 MMOL/L (3.5-5.1) Chloride Level 107 MMOL/L (98-107) Carbon Dioxide Level 27 MMOL/L (21-32) Anion Gap 5 mmol/L (5-15) Blood Urea Nitrogen 49 mg/dL (7-18) Creatinine 1.4 MG/DL (0.55-1.30) Estimat Glomerular Filtration Rate mL/min (>60) Glucose Level 162 MG/DL (74-106) Calcium Level 10.1 MG/DL (8.5-10.1) Total Bilirubin 0.4 MG/DL (0.2-1.0) Aspartate Amino Transf (AST/SGOT) 74 U/L (15-37) Alanine Aminotransferase (ALT/SGPT) 14 U/L (12-78) Alkaline Phosphatase 269 U/L (46-116) Total Protein 5.3 G/DL (6.4-8.2) Albumin 1.2 G/DL (3.4-5.0) Globulin 4.1 g/dL Albumin/Globulin Ratio 0.3 (1.0-2.7) Height (Feet): 5 Height (Inches): 8.00 Weight (Pounds): 173 Objective Gen: well appearing, no apparent distress, alert Head: normocephalic EENT: PERRL/EOMI, normal ENT inspection Pulm: normal breath sounds, no respiratory distress CV: rrr. no mgr GI: normal inspection, non tender, soft, normal bowel sounds, non-distended ++ gtube Rectal: deferred Gu: deferred Musculoskeletal: normal inspection, back normal Neurologic: normal inspection, alert, oriented x3, responsive Psychiatric: normal inspection, judgement/insight normal, memory normal Skin: normal inspection, normal color, no rash, warm/dry, palpation normal, well hydrated Fadi Vicente MD Sep 18, 2018 13:01
[2018-09-18] MEDS ORDERED: Tubing IV Secondary IV ONE (15:38)
[2018-09-18] MEDS ORDERED: NS 500ML ONE (15:38)
[2018-09-18] MEDS ORDERED: NS 275ml ONE (15:38)
--- NOTE | 2018-09-18 15:49 | Surgery Progress Note ---
Surgery Progress Note Subjective Symptoms: improved, tolerating diet, passing flatus, BM Objective Last 24 Hour Vital Signs Date Time Temp Pulse Resp B/P (MAP) Pulse Ox O2 Delivery O2 Flow Rate FiO2 09/18/18 12:00 Nasal Cannula 2.0 09/18/18 11:50 96.6 89 22 105/50 (68) 100 09/18/18 08:13 102/51 09/18/18 08:00 91 09/18/18 08:00 97.3 82 19 102/51 (68) 98 09/18/18 08:00 Nasal Cannula 2.0 09/18/18 04:00 97.8 82 18 99/58 (72) 96 09/18/18 04:00 Room Air 09/18/18 03:46 98 09/18/18 00:00 97.6 93 18 101/55 (70) 94 09/18/18 00:00 Room Air 09/17/18 23:27 93 09/17/18 20:16 96 Nasal Cannula 2.0 28 09/17/18 20:00 Room Air 09/17/18 20:00 98.0 70 18 109/53 (71) 96 09/17/18 19:36 93 09/17/18 16:15 91 09/17/18 16:00 98.1 82 18 101/59 (73) 97 09/17/18 16:00 Room Air I&O Intake and Output 09/17/18 09/18/18 19:00 07:00 Intake Total 255 ml 450 ml Output Total 200 ml 100 ml Balance 55 ml 350 ml Intake Free Water 100 ml 100 ml Tube Feeding 155 ml 350 ml Output Urine Total 200 ml 100 ml # Bowel Movements 1 Cardiovascular: RSR Respiratory: clear Abdomen: soft, non-tender, present bowel sounds, non-distended Extremities: no tenderness, no cyanosis Laboratory Tests Test 09/18/18 03:00 White Blood Count 11.3 K/UL (4.8-10.8) #H Red Blood Count 3.79 M/UL (4.70-6.10) L Hemoglobin 11.6 G/DL (14.2-18.0) L Hematocrit 36.3 % (42.0-52.0) L Mean Corpuscular Volume 96 FL (80-99) Mean Corpuscular Hemoglobin 30.6 PG (27.0-31.0) Mean Corpuscular Hemoglobin Concent 31.9 G/DL (32.0-36.0) L Red Cell Distribution Width 14.5 % (11.6-14.8) Platelet Count 153 K/UL (150-450) Mean Platelet Volume 6.9 FL (6.5-10.1) Neutrophils (%) (Auto) 83.0 % (45.0-75.0) H Lymphocytes (%) (Auto) 8.2 % (20.0-45.0) L Monocytes (%) (Auto) 8.5 % (1.0-10.0) Eosinophils (%) (Auto) 0.1 % (0.0-3.0) Basophils (%) (Auto) 0.3 % (0.0-2.0) Sodium Level 139 MMOL/L (136-145) Potassium Level 4.5 MMOL/L (3.5-5.1) Chloride Level 107 MMOL/L (98-107) Carbon Dioxide Level 27 MMOL/L (21-32) Anion Gap 5 mmol/L (5-15) Blood Urea Nitrogen 49 mg/dL (7-18) H Creatinine 1.4 MG/DL (0.55-1.30) H Estimat Glomerular Filtration Rate mL/min (>60) Glucose Level 162 MG/DL (74-106) H Calcium Level 10.1 MG/DL (8.5-10.1) Total Bilirubin 0.4 MG/DL (0.2-1.0) Aspartate Amino Transf (AST/SGOT) 74 U/L (15-37) H Alanine Aminotransferase (ALT/SGPT) 14 U/L (12-78) Alkaline Phosphatase 269 U/L (46-116) H Total Protein 5.3 G/DL (6.4-8.2) L Albumin 1.2 G/DL (3.4-5.0) L Globulin 4.1 g/dL Albumin/Globulin Ratio 0.3 (1.0-2.7) L Plan Problems: (1) Abdominal distension Assessment & Plan: improved tolerating diet exam benign. okay to d/c from surgical standpoint Jesse Cash Sep 18, 2018 15:49
[2018-09-18 16:00] VITALS: BP 103/44
--- NOTE | 2018-09-18 19:12 | NUR ---
HAND-OFF: Report given to ISMAEL Wilburn. Stable condition.
--- NOTE | 2018-09-18 19:15 | NUR ---
NURSE NOTES: Received patient from ISMAEL SCHULZ. Will continue plan of care.
[2018-09-18 20:00] VITALS: BP 93/56
[2018-09-18] MEDS: Donepezil 10mg tab GT SCH (20:21)
[2018-09-18] MEDS: Miralax 17gm pkt GT SCH (20:22)
--- NOTE | 2018-09-18 23:08 | Pulmonology Progress Note ---
Assessment/Plan Assessment/Plan Pulmonary Progress Note Assessment/Plan Problem List: (1) Atrial fibrillation and flutter ICD Codes: I48.91 - Unspecified atrial fibrillation; I48.92 - Unspecified atrial flutter SNOMED: 196705291 (2) CHF (congestive heart failure) ICD Codes: I50.9 - Heart failure, unspecified SNOMED: 81714086 (3) Pancreatitis ICD Codes: K85.90 - Acute pancreatitis without necrosis or infection, unspecified SNOMED: 58861421 (4) CVA (cerebral vascular accident) ICD Codes: I63.9 - CVA (cerebral vascular accident) SNOMED: 265381030 (5) Abdominal distension ICD Codes: R14.0 - Abdominal distension (gaseous) SNOMED: 72948203 (6) Umbilical hernia ICD Codes: K42.9 - Umbilical hernia without obstruction or gangrene SNOMED: 022086243 Qualifiers: Qualified Codes: K42.9 - Umbilical hernia without obstruction or gangrene Assessment/Plan: liver mass abdominal distention PLAN NPO care as is await gi regarding feeds general surgery to follow monitor for change impression, plan, and exam edited and reviewed in detail care discussed with RN Subjective ROS Limited/Unobtainable: Yes Allergies: Coded Allergies: No Known Allergies (Verified , 06/07/08) Subjective abdmen distende gi and gs called to followup Objective Vital Signs Noted Height (Feet): 5 Height (Inches): 8.00 Weight (Pounds): 160 Objective WDWN NAD clear breath sounds bilaterally without rhonchi or wheeze [id number] without MRG NABS noted distention GT in place no CCE nonfocal confused Subjective ROS Limited/Unobtainable: No Allergies: Coded Allergies: No Known Allergies (Verified , 06/07/08) Objective Last 24 Hour Vital Signs Date Time Temp Pulse Resp B/P (MAP) Pulse Ox O2 Delivery O2 Flow Rate FiO2 09/18/18 20:05 97 09/18/18 20:00 97.7 84 26 93/56 (68) 98 09/18/18 20:00 Nasal Cannula 2.0 09/18/18 16:00 90 09/18/18 16:00 Nasal Cannula 2.0 09/18/18 16:00 97.7 82 21 103/44 (63) 97 09/18/18 12:00 88 09/18/18 12:00 Nasal Cannula 2.0 09/18/18 11:50 96.6 89 22 105/50 (68) 100 09/18/18 08:13 102/51 09/18/18 08:00 91 09/18/18 08:00 97.3 82 19 102/51 (68) 98 09/18/18 08:00 Nasal Cannula 2.0 09/18/18 04:00 97.8 82 18 99/58 (72) 96 09/18/18 04:00 Room Air 09/18/18 03:46 98 09/18/18 00:00 97.6 93 18 101/55 (70) 94 09/18/18 00:00 Room Air 09/17/18 23:27 93 Intake and Output 09/17/18 09/18/18 18:59 06:59 Intake Total 235 ml 430 ml Output Total 200 ml Balance 35 ml 430 ml Intake Free Water 100 ml 100 ml Tube Feeding 135 ml 330 ml Output Urine Total 200 ml # Bowel Movements 1 Microbiology Date/Time Source Procedure Growth Status 09/16/18 17:07 Abdominal Fluid Gram Stain - Final Resulted 09/16/18 17:07 Abdominal Fluid Body Fluid Culture - Preliminary NO GROWTH AFTER 48 HOURS Resulted Laboratory Tests 09/18/18 03:00: White Blood Count 11.3#H, Red Blood Count 3.79L, Hemoglobin 11.6L, Hematocrit 36.3L, Mean Corpuscular Volume 96, Mean Corpuscular Hemoglobin 30.6, Mean Corpuscular Hemoglobin Concent 31.9L, Red Cell Distribution Width 14.5, Platelet Count 153, Mean Platelet Volume 6.9, Neutrophils (%) (Auto) 83.0H, Lymphocytes (%) (Auto) 8.2L, Monocytes (%) (Auto) 8.5, Eosinophils (%) (Auto) 0.1, Basophils (%) (Auto) 0.3, Sodium Level 139, Potassium Level 4.5, Chloride Level 107, Carbon Dioxide Level 27, Anion Gap 5, Blood Urea Nitrogen 49H, Creatinine 1.4H, Estimat Glomerular Filtration Rate , Glucose Level 162H, Calcium Level 10.1, Total Bilirubin 0.4, Aspartate Amino Transf (AST/SGOT) 74H, Alanine Aminotransferase (ALT/SGPT) 14, Alkaline Phosphatase 269H, Total Protein 5.3L, Albumin 1.2L, Globulin 4.1, Albumin/Globulin Ratio 0.3L Current Medications Medications (Trade) Dose Ordered Sig/Reagan Route PRN Reason Start Time Stop Time Status Last Admin Dose Admin Acetaminophen (Tylenol) 650 mg Q4H PRN GT Mild Pain/Temp > 100.5 09/09/18 21:19 10/09/18 21:18 09/17/18 08:54 Artificial Tears (Akwa-Tears) 1 drop EVERY 12 HOURS BOTH EYES 09/15/18 21:00 10/15/18 20:59 09/18/18 20:24 Atorvastatin Calcium (Lipitor) 10 mg BEDTIME GT 09/10/18 21:00 10/04/18 20:59 09/18/18 20:22 Dextrose (Dextrose 50%) 25 ml Q30M PRN IV Hypoglycemia 09/09/18 21:30 10/03/18 21:29 Dextrose (Dextrose 50%) 50 ml Q30M PRN IV Hypoglycemia 09/09/18 21:30 10/03/18 21:29 Docusate Sodium (Colace) 100 mg BID GT 09/10/18 09:00 10/04/18 08:59 09/18/18 09:09 Donepezil HCl (Aricept) 10 mg BEDTIME GT 09/10/18 21:00 10/04/18 20:59 09/18/18 20:21 Heparin Sodium (Porcine) (Heparin 5000 units/ml) 5,000 units EVERY 12 HOURS SUBQ 09/10/18 09:00 10/04/18 08:59 09/18/18 20:23 Hydralazine HCl (Apresoline) 25 mg Q6H PRN GT For High Blood Pressure 09/09/18 21:20 10/09/18 21:19 09/16/18 05:06 Insulin Aspart (NovoLOG) EVERY 6 HOURS SUBQ 09/10/18 12:00 10/10/18 06:29 09/18/18 17:17 Insulin Detemir (Levemir) 5 units DAILY SUBQ 09/10/18 09:00 10/04/18 08:59 09/18/18 09:18 Lactulose (Cephulac) 10 gm THREE TIMES A DAY GT 09/10/18 09:00 10/08/18 12:59 09/18/18 13:36 Losartan Potassium (Cozaar) 100 mg DAILY GT 09/10/18 09:00 10/04/18 08:59 09/16/18 08:51 Metoclopramide HCl (Reglan) 5 mg Q8H PRN IVP Nausea & Vomiting 09/10/18 09:00 10/10/18 08:59 Mineral Oil (Mineral Oil) 30 ml DAILYPRN PRN GT Constipation 09/09/18 21:21 10/09/18 21:20 Polyethylene Glycol (Miralax) 17 gm BEDTIME GT 09/10/18 21:00 10/06/18 20:59 09/18/18 20:22 Sitagliptin Phosphate (Januvia) 100 mg DAILY GT 09/10/18 09:00 10/04/18 08:59 09/18/18 09:10 Vitamin D (Vitamin D) 1,000 intlu TWICE A DAY GT 09/10/18 09:00 10/04/18 08:59 09/18/18 17:15 Zinc Oxide (Desitin) 1 applic EVERY 8 HOURS TOPIC 09/10/18 14:00 10/08/18 10:29 09/18/18 21:16 Marcellus Castillo MD Sep 18, 2018 23:08
[2018-09-19] VITALS (8 sets, daily range): BP systolic 113–122; BP diastolic 42–59
[2018-09-19 04:53] LABS: BASOPHILS % (AUTO) 0.4 % (0.0-2.0); EOSINOPHILS % (AUTO) 0.1 % (0.0-3.0); HEMATOCRIT 34.9 % (42.0-52.0); HEMOGLOBIN 11.4 G/DL (14.2-18.0); LYMPHOCYTES % (AUTO) 11.1 % (20.0-45.0); MEAN CORPUSCULAR VOLUME 95 FL (80-99); MONOCYTES % (AUTO) 8.8 % (1.0-10.0); NEUTROPHILS % (AUTO) 79.6 % (45.0-75.0); PLATELET COUNT 146 K/UL (150-450); RED BLOOD COUNT 3.69 M/UL (4.70-6.10); RED CELL DISTRIBUTION WIDTH 14.1 % (11.6-14.8); WHITE BLOOD COUNT 9.8 K/UL (4.8-10.8)
[2018-09-19 05:04] LABS: ANION GAP 8 mmol/L (5-15); BLOOD UREA NITROGEN 64 mg/dL (7-18); CALCIUM 9.5 MG/DL (8.5-10.1); CARBON DIOXIDE 25 MMOL/L (21-32); CHLORIDE 105 MMOL/L (98-107); CREATININE 1.6 MG/DL (0.55-1.30); SODIUM 138 MMOL/L (136-145)
[2018-09-19] MEDS: Desitin Rash Paste TOPIC SCH ×3 (05:19→20:42)
[2018-09-19] MEDS: NovoLOG Insulin Flexpen SUBQ SCH ×3 (05:21→17:54)
--- NOTE | 2018-09-19 07:09 | NUR ---
HAND-OFF: Report given to ISMAEL HERNANDEZ.
--- NOTE | 2018-09-19 07:10 | NUR ---
NURSE NOTES: Received report from ISMAEL Wilburn. Observed patient in bed, awake, responsive. On O2 2L via NC, saturating 98%. GT intact and patent with feeding infusing at prescribed rate. No residual, HOB elevated. Schmid catheter intact and draining well to gravity. Left forearm 24g saline lock intact and patent. Safety precautions in place, bed locked, alarmed, and in lowest position, side rails up x3, and call light left within reach. Will continue to monitor.
[2018-09-19] MEDS: Docusate 100mg/10ml Liq GT SCH ×2 (08:27→17:27)
[2018-09-19] MEDS: Losartan 50mg tab GT SCH (08:27)
[2018-09-19] MEDS: Lactulose 10gm/15ml UDC GT SCH ×3 (08:27→17:41)
[2018-09-19] MEDS: Vitamin D 1000 IU Tab GT SCH ×2 (08:29→17:41)
[2018-09-19] MEDS: Heparin 5000 units/ml inj SUBQ SCH ×2 (08:35→20:42)
[2018-09-19] MEDS: Levemir Flexpen SUBQ SCH (08:36)
--- NOTE | 2018-09-19 09:08 | General Progress Note ---
Assessment/Plan Problem List: (1) Atrial fibrillation and flutter ICD Codes: I48.91 - Unspecified atrial fibrillation; I48.92 - Unspecified atrial flutter SNOMED: 938323443 (2) CHF (congestive heart failure) ICD Codes: I50.9 - Heart failure, unspecified SNOMED: 04511113 (3) Pancreatitis ICD Codes: K85.90 - Acute pancreatitis without necrosis or infection, unspecified SNOMED: 32920660 (4) CVA (cerebral vascular accident) ICD Codes: I63.9 - CVA (cerebral vascular accident) SNOMED: 254543896 (5) Abdominal distension ICD Codes: R14.0 - Abdominal distension (gaseous) SNOMED: 71334169 (6) Umbilical hernia ICD Codes: K42.9 - Umbilical hernia without obstruction or gangrene SNOMED: 693268542 Qualifiers: Qualified Codes: K42.9 - Umbilical hernia without obstruction or gangrene Status: stable, unchanged Assessment/Plan: liver mass abdominal distention episodic hypertension and tachycardia abdominal distention, slightly improved urinary retention ascites s/p tap fever acute on chronic renal failure PLAN CXR with edema ? diurese GI follow up - feeds as able general surgery reviewed and noted monitor for change and recommend liver masses previously - defer biopsy and discuss monitor TF and resume when able urology noted- johnston in place; monitor UO not yet stable for snf; will update family ? hepatorenal impression, plan, and exam edited and reviewed in detail care discussed with RN Subjective Allergies: Coded Allergies: No Known Allergies (Verified , 06/07/08) Subjective vitals reviewed s/p tap and stable care noted and reviewed Objective Last 24 Hour Vital Signs Date Time Temp Pulse Resp B/P (MAP) Pulse Ox O2 Delivery O2 Flow Rate FiO2 09/19/18 08:27 119/59 09/19/18 08:00 98.1 102 24 119/59 (79) 97 09/19/18 04:00 Nasal Cannula 2.0 09/19/18 04:00 98.1 68 24 117/52 (73) 94 09/19/18 03:48 109 09/19/18 00:00 97.5 100 24 120/45 (70) 98 09/19/18 00:00 Nasal Cannula 2.0 09/18/18 23:20 106 7/17/19 20:44 96 Nasal Cannula 2.0 28 09/18/18 20:05 97 09/18/18 20:00 97.7 84 26 93/56 (68) 98 09/18/18 20:00 Nasal Cannula 2.0 09/18/18 16:00 90 09/18/18 16:00 Nasal Cannula 2.0 09/18/18 16:00 97.7 82 21 103/44 (63) 97 09/18/18 12:00 88 09/18/18 12:00 Nasal Cannula 2.0 09/18/18 11:50 96.6 89 22 105/50 (68) 100 Intake and Output 09/18/18 09/19/18 19:00 07:00 Intake Total 895 ml 740 ml Output Total 70 ml Balance 825 ml 740 ml Intake Free Water 360 ml 100 ml Tube Feeding 535 ml 540 ml Other 100 ml Output Urine Total 70 ml # Voids 100 # Bowel Movements 2 2 Laboratory Tests 09/19/18 03:25: White Blood Count 9.8, Red Blood Count 3.69L, Hemoglobin 11.4L, Hematocrit 34.9L , Mean Corpuscular Volume 95, Mean Corpuscular Hemoglobin 31.0, Mean Corpuscular Hemoglobin Concent 32.8, Red Cell Distribution Width 14.1, Platelet Count 146L, Mean Platelet Volume 7.3, Neutrophils (%) (Auto) 79.6H, Lymphocytes (%) (Auto) 11.1L, Monocytes (%) (Auto) 8.8, Eosinophils (%) (Auto) 0.1, Basophils (%) (Auto) 0.4, Sodium Level 138, Potassium Level 5.0, Chloride Level 105, Carbon Dioxide Level 25, Anion Gap 8, Blood Urea Nitrogen 64H, Creatinine 1.6H, Estimat Glomerular Filtration Rate , Glucose Level 195H, Calcium Level 9.5 , Phosphorus Level 3.0, Magnesium Level 2.0 Height (Feet): 5 Height (Inches): 8.00 Weight (Pounds): 173 Objective WDWN NAD reduced breath sounds bilaterally without rhonchi or wheeze [id number] without MRG NABS;Gt in place; less distended no CC; trace edema nonfocal skin exam noted confused reviewed and examined Dustin Mary MD Sep 19, 2018 09:08
--- NOTE | 2018-09-19 09:25 | NUR ---
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
--- NOTE | 2018-09-19 09:35 | Hematology/Onc Progress Note ---
Assessment/Plan Assessment/Plan Assessment and Recs # Liver mass - large heterogeneous mass in the right lobe of the liver suspicious for malignant neoplasm --> imaging has been reviewed and c/w likely malignancy --> as per Gi recs, defer tumor biopsy, has been present prior admission --> treatment once have results of primary --> imaging as needed r/o ascites --> tumor markers reviewed are wnl # Anemia of chronic disease due to underlying chronic medical issues, multifactorial --> Anemia workup has been ordered, rule out gi bleed, ferritin is 118 --> No evidence of hemolysis is noted, peripheral smear has been reviewed. --> Hgb goal >7. Transfuse prn. --> Epogen or iron at this time is not particularly indicated --> Medications have been reviewed --> improved trend 10-->11-->12-->11.8-->11.5-->11.4 # Hypercalcemia - on admission elev, due to likely dehydration --> Ca has improved, on ivf --> on IVF also for hypernatremia --> per renal recs # Fecal impaction/constipation --> on colace, senna as per gi # Abdominal distension --> improved mildly, per gi # DVT ppx with heparin sq The timing of this note does not necessarily reflect the time of the patient was seen. GREATLY APPRECIATE CONSULTATION. Subjective Cardiovascular: Denies: no symptoms, chest pain, edema, irregular heart rate, lightheadedness, palpitations, syncope, other Respiratory: Denies: no symptoms, cough, shortness of breath, SOB with excertion, SOB at rest, sputum, wheezing, other Gastrointestinal/Abdominal: Denies: no symptoms, abdomen distended, abdominal pain, black stools, tarry stools, blood in stool, constipated, diarrhea, difficulty swallowing, nausea, poor appetite, poor fluid intake, rectal bleeding , vomiting, other Genitourinary: Denies: no symptoms, burning, discharge, frequency, flank pain, hematuria, incontinence, pain, urgency, other Neurologic/Psychiatric: Denies: no symptoms, anxiety, depressed, emotional problems, headache, numbness, paresthesia, pre-existing deficit, seizure, tingling, tremors, weakness, other Endocrine: Denies: no symptoms, excessive sweating, flushing, intolerance to cold, intolerance to heat, increased hunger, increased thirst, increased urine, unexplained weight gain, unexplained weight loss, other Hematologic/Lymphatic: Denies: no symptoms, anemia, easy bleeding, easy bruising, adenopathy, other Allergies: Coded Allergies: No Known Allergies (Verified , 06/07/08) Subjective 09/10: no bleeding, no night sweats, no events otherwise, labs pending 09/11: liver biopsy cancelled, no events, tumor markers neg 09/12: no events, no bleeding, h/h reviewed, no f/c 09/13: patient being turned every 2 hrs, seen by gi 09/14: no events, still with abd pain, imaging per gi 09/16: arousable, nonverbal, no events reported 09/17: 5.5L of fluid removed via para, no events otherwise, no f/c 09/18: seen by pulm, gi, no events, wbc is 11.3 09/19: no f/c, no events reported, on heparin sq dvt ppx Objective Objective Current Medications Medications (Trade) Dose Ordered Sig/Reagan Route PRN Reason Start Time Stop Time Status Last Admin Dose Admin Acetaminophen (Tylenol) 650 mg Q4H PRN GT Mild Pain/Temp > 100.5 09/09/18 21:19 10/09/18 21:18 09/17/18 08:54 Artificial Tears (Akwa-Tears) 1 drop EVERY 12 HOURS BOTH EYES 09/15/18 21:00 10/15/18 20:59 09/18/18 20:24 Atorvastatin Calcium (Lipitor) 10 mg BEDTIME GT 09/10/18 21:00 10/04/18 20:59 09/18/18 20:22 Dextrose (Dextrose 50%) 25 ml Q30M PRN IV Hypoglycemia 09/09/18 21:30 10/03/18 21:29 Dextrose (Dextrose 50%) 50 ml Q30M PRN IV Hypoglycemia 09/09/18 21:30 10/03/18 21:29 Docusate Sodium (Colace) 100 mg BID GT 09/10/18 09:00 10/04/18 08:59 09/19/18 08:27 Donepezil HCl (Aricept) 10 mg BEDTIME GT 09/10/18 21:00 10/04/18 20:59 09/18/18 20:21 Heparin Sodium (Porcine) (Heparin 5000 units/ml) 5,000 units EVERY 12 HOURS SUBQ 09/10/18 09:00 10/04/18 08:59 09/19/18 08:35 Hydralazine HCl (Apresoline) 25 mg Q6H PRN GT For High Blood Pressure 09/09/18 21:20 10/09/18 21:19 09/16/18 05:06 Insulin Aspart (NovoLOG) EVERY 6 HOURS SUBQ 09/10/18 12:00 10/10/18 06:29 09/19/18 05:21 Insulin Detemir (Levemir) 5 units DAILY SUBQ 09/10/18 09:00 10/04/18 08:59 09/19/18 08:36 Lactulose (Cephulac) 10 gm THREE TIMES A DAY GT 09/10/18 09:00 10/08/18 12:59 09/19/18 08:27 Losartan Potassium (Cozaar) 100 mg DAILY GT 09/10/18 09:00 10/04/18 08:59 09/19/18 08:27 Metoclopramide HCl (Reglan) 5 mg Q8H PRN IVP Nausea & Vomiting 09/10/18 09:00 10/10/18 08:59 Mineral Oil (Mineral Oil) 30 ml DAILYPRN PRN GT Constipation 09/09/18 21:21 10/09/18 21:20 Polyethylene Glycol (Miralax) 17 gm BEDTIME GT 09/10/18 21:00 10/06/18 20:59 09/18/18 20:22 Sitagliptin Phosphate (Januvia) 100 mg DAILY GT 09/10/18 09:00 10/04/18 08:59 09/19/18 08:27 Vitamin D (Vitamin D) 1,000 intlu TWICE A DAY GT 09/10/18 09:00 10/04/18 08:59 09/19/18 08:29 Zinc Oxide (Desitin) 1 applic EVERY 8 HOURS TOPIC 09/10/18 14:00 10/08/18 10:29 09/19/18 05:19 Last 24 Hour Vital Signs Date Time Temp Pulse Resp B/P (MAP) Pulse Ox O2 Delivery O2 Flow Rate FiO2 09/19/18 08:27 119/59 09/19/18 08:00 98.1 102 24 119/59 (79) 97 09/19/18 04:00 Nasal Cannula 2.0 09/19/18 04:00 98.1 68 24 117/52 (73) 94 09/19/18 03:48 109 09/19/18 00:00 97.5 100 24 120/45 (70) 98 09/19/18 00:00 Nasal Cannula 2.0 09/18/18 23:20 106 09/18/18 20:44 96 Nasal Cannula 2.0 28 09/18/18 20:05 97 09/18/18 20:00 97.7 84 26 93/56 (68) 98 09/18/18 20:00 Nasal Cannula 2.0 09/18/18 16:00 90 09/18/18 16:00 Nasal Cannula 2.0 09/18/18 16:00 97.7 82 21 103/44 (63) 97 09/18/18 12:00 88 09/18/18 12:00 Nasal Cannula 2.0 09/18/18 11:50 96.6 89 22 105/50 (68) 100 09/18/18 08:13 102/51 09/18/18 08:00 91 09/18/18 08:00 97.3 82 19 102/51 (68) 98 09/18/18 08:00 Nasal Cannula 2.0 09/18/18 04:00 97.8 82 18 99/58 (72) 96 09/18/18 04:00 Room Air 09/18/18 03:46 98 09/18/18 00:00 97.6 93 18 101/55 (70) 94 09/18/18 00:00 Room Air 09/17/18 23:27 93 09/17/18 20:16 96 Nasal Cannula 2.0 28 09/17/18 20:00 Room Air 09/17/18 20:00 98.0 70 18 109/53 (71) 96 09/17/18 19:36 93 09/17/18 16:15 91 09/17/18 16:00 98.1 82 18 101/59 (73) 97 09/17/18 16:00 Room Air 09/17/18 12:46 69 09/17/18 12:00 Room Air 09/17/18 12:00 97.3 83 21 106/44 (64) 97 Intake and Output 09/18/18 09/19/18 19:00 07:00 Intake Total 895 ml 740 ml Output Total 70 ml Balance 825 ml 740 ml Intake Free Water 360 ml 100 ml Tube Feeding 535 ml 540 ml Other 100 ml Output Urine Total 70 ml # Voids 100 # Bowel Movements 2 2 Labs Test 09/16/18 17:07 09/17/18 04:00 09/17/18 10:20 09/18/18 03:00 Body Fluid Source Paracentesis Body Fluid Volume 24 ml mL Body Fluid Appearance Colorless/clear (Clear) Body Fluid RBC 18 /CUMM Body Fluid Total Nucleated Cells 78 /CUMM Body Fluid Polynuclear WBCs (%) 7 % Body Fluid Mononuclear WBCs (%) 91 % Body Fluid Mesothelial Cells (%) 2 % Body Fluid Albumin 0.3 g/dL (.) White Blood Count 6.1 K/UL (4.8-10.8) 11.3 K/UL (4.8-10.8) Red Blood Count 3.74 M/UL (4.70-6.10) 3.79 M/UL (4.70-6.10) Hemoglobin 11.4 G/DL (14.2-18.0) 11.6 G/DL (14.2-18.0) Hematocrit 35.7 % (42.0-52.0) 36.3 % (42.0-52.0) Mean Corpuscular Volume 96 FL (80-99) 96 FL (80-99) Mean Corpuscular Hemoglobin 30.4 PG (27.0-31.0) 30.6 PG (27.0-31.0) Mean Corpuscular Hemoglobin Concent 31.8 G/DL (32.0-36.0) 31.9 G/DL (32.0-36.0) Red Cell Distribution Width 14.2 % (11.6-14.8) 14.5 % (11.6-14.8) Platelet Count 162 K/UL (150-450) 153 K/UL (150-450) Mean Platelet Volume 6.2 FL (6.5-10.1) 6.9 FL (6.5-10.1) Neutrophils (%) (Auto) % (45.0-75.0) 83.0 % (45.0-75.0) Lymphocytes (%) (Auto) % (20.0-45.0) 8.2 % (20.0-45.0) Monocytes (%) (Auto) % (1.0-10.0) 8.5 % (1.0-10.0) Eosinophils (%) (Auto) % (0.0-3.0) 0.1 % (0.0-3.0) Basophils (%) (Auto) % (0.0-2.0) 0.3 % (0.0-2.0) Differential Total Cells Counted 100 Neutrophils % (Manual) 83 % (45-75) Lymphocytes % (Manual) 7 % (20-45) Monocytes % (Manual) 4 % (1-10) Eosinophils % (Manual) 0 % (0-3) Basophils % (Manual) 0 % (0-2) Band Neutrophils 6 % (0-8) Platelet Estimate Adequate Platelet Morphology Normal Sodium Level 139 MMOL/L (136-145) 139 MMOL/L (136-145) Potassium Level 4.3 MMOL/L (3.5-5.1) 4.5 MMOL/L (3.5-5.1) Chloride Level 108 MMOL/L (98-107) 107 MMOL/L (98-107) Carbon Dioxide Level 27 MMOL/L (21-32) 27 MMOL/L (21-32) Anion Gap 4 mmol/L (5-15) 5 mmol/L (5-15) Blood Urea Nitrogen 36 mg/dL (7-18) 49 mg/dL (7-18) Creatinine 1.0 MG/DL (0.55-1.30) 1.4 MG/DL (0.55-1.30) Estimat Glomerular Filtration Rate mL/min (>60) mL/min (>60) Glucose Level 97 MG/DL (74-106) 162 MG/DL (74-106) Calcium Level 10.1 MG/DL (8.5-10.1) 10.1 MG/DL (8.5-10.1) Phosphorus Level 3.4 MG/DL (2.5-4.9) Magnesium Level 1.7 MG/DL (1.8-2.4) Arterial Blood pH 7.394 (7.350-7.450) Arterial Blood Partial Pressure CO2 41.5 mmHg (35.0-45.0) Arterial Blood Partial Pressure O2 87.1 mmHg (75.0-100.0) Arterial Blood HCO3 24.8 mmol/L (22.0-26.0) Arterial Blood Oxygen Saturation 95.7 % (95-100) Arterial Blood Base Excess -0.1 (-2-2) Juan Alberto Test Positive Total Bilirubin 0.4 MG/DL (0.2-1.0) Aspartate Amino Transf (AST/SGOT) 74 U/L (15-37) Alanine Aminotransferase (ALT/SGPT) 14 U/L (12-78) Alkaline Phosphatase 269 U/L (46-116) Total Protein 5.3 G/DL (6.4-8.2) Albumin 1.2 G/DL (3.4-5.0) Globulin 4.1 g/dL Albumin/Globulin Ratio 0.3 (1.0-2.7) Test 09/19/18 03:25 White Blood Count 9.8 K/UL (4.8-10.8) Red Blood Count 3.69 M/UL (4.70-6.10) Hemoglobin 11.4 G/DL (14.2-18.0) Hematocrit 34.9 % (42.0-52.0) Mean Corpuscular Volume 95 FL (80-99) Mean Corpuscular Hemoglobin 31.0 PG (27.0-31.0) Mean Corpuscular Hemoglobin Concent 32.8 G/DL (32.0-36.0) Red Cell Distribution Width 14.1 % (11.6-14.8) Platelet Count 146 K/UL (150-450) Mean Platelet Volume 7.3 FL (6.5-10.1) Neutrophils (%) (Auto) 79.6 % (45.0-75.0) Lymphocytes (%) (Auto) 11.1 % (20.0-45.0) Monocytes (%) (Auto) 8.8 % (1.0-10.0) Eosinophils (%) (Auto) 0.1 % (0.0-3.0) Basophils (%) (Auto) 0.4 % (0.0-2.0) Sodium Level 138 MMOL/L (136-145) Potassium Level 5.0 MMOL/L (3.5-5.1) Chloride Level 105 MMOL/L (98-107) Carbon Dioxide Level 25 MMOL/L (21-32) Anion Gap 8 mmol/L (5-15) Blood Urea Nitrogen 64 mg/dL (7-18) Creatinine 1.6 MG/DL (0.55-1.30) Estimat Glomerular Filtration Rate mL/min (>60) Glucose Level 195 MG/DL (74-106) Calcium Level 9.5 MG/DL (8.5-10.1) Phosphorus Level 3.0 MG/DL (2.5-4.9) Magnesium Level 2.0 MG/DL (1.8-2.4) Height (Feet): 5 Height (Inches): 8.00 Weight (Pounds): 173 Objective Gen: well appearing, no apparent distress, alert Head: normocephalic EENT: PERRL/EOMI, normal ENT inspection Pulm: normal breath sounds, no respiratory distress CV: rrr. no mgr GI: normal inspection, non tender, soft, normal bowel sounds, non-distended ++ gtube Rectal: deferred Gu: deferred Musculoskeletal: normal inspection, back normal Neurologic: normal inspection, alert, oriented x3, responsive Psychiatric: normal inspection, judgement/insight normal, memory normal Skin: normal inspection, normal color, no rash, warm/dry, palpation normal, well hydrated Fadi Vicente MD Sep 19, 2018 09:35
[2018-09-19] MEDS: Artificial Tears 1.4% Op Soln BOTH EYES SCH ×2 (09:54→20:40)
--- NOTE | 2018-09-19 11:48 | GI Progress Note ---
Assessment/Plan Problems: (1) Anemia ICD Codes: D64.9 - Anemia, unspecified SNOMED: 681419172 (2) Liver mass ICD Codes: R16.0 - Hepatomegaly, not elsewhere classified SNOMED: 121356289 (3) Fecal impaction ICD Codes: K56.41 - Fecal impaction SNOMED: 95302711 (4) CVA (cerebral vascular accident) ICD Codes: I63.9 - CVA (cerebral vascular accident) SNOMED: 605994257 (5) G tube feedings ICD Codes: Z93.1 - Gastrostomy status SNOMED: 197711345, 871268718, 458128604 (6) Abdominal distension ICD Codes: R14.0 - Abdominal distension (gaseous) SNOMED: 08532610 (7) Constipation ICD Codes: K59.00 - Constipation, unspecified SNOMED: 49089691 Qualifiers: Qualified Codes: K59.00 - Constipation, unspecified Status: progressing Status Narrative Discussed with Dr. Gonzales. Assessment/Plan Status post paracentesis yielding 5.5 L of fluid GT was changed at the bedside G-tube feedings Reglan low dose Monitor H&H, PRN transfusions Turn patient every 2 hours bowel regimen The patient was seen and examined at bedside and all new and available data was reviewed in the patients chart. I agree with the above findings, impression and plan. (Patient seen earlier today. Signature stamp does not reflect patient encounter time.). - Demetris Gonzales MD Subjective Subjective Limited Objective Last 24 Hour Vital Signs Date Time Temp Pulse Resp B/P (MAP) Pulse Ox O2 Delivery O2 Flow Rate FiO2 09/19/18 09:00 Nasal Cannula 2.0 09/19/18 08:27 119/59 09/19/18 08:00 98.1 102 24 119/59 (79) 97 09/19/18 07:45 109 09/19/18 04:00 Nasal Cannula 2.0 09/19/18 04:00 98.1 68 24 117/52 (73) 94 09/19/18 03:48 109 09/19/18 00:00 97.5 100 24 120/45 (70) 98 09/19/18 00:00 Nasal Cannula 2.0 09/18/18 23:20 106 09/18/18 20:44 96 Nasal Cannula 2.0 28 09/18/18 20:05 97 09/18/18 20:00 97.7 84 26 93/56 (68) 98 09/18/18 20:00 Nasal Cannula 2.0 09/18/18 16:00 90 09/18/18 16:00 Nasal Cannula 2.0 09/18/18 16:00 97.7 82 21 103/44 (63) 97 09/18/18 12:00 88 09/18/18 12:00 Nasal Cannula 2.0 09/18/18 11:50 96.6 89 22 105/50 (68) 100 Intake and Output 09/18/18 09/19/18 19:00 07:00 Intake Total 895 ml 740 ml Output Total 70 ml Balance 825 ml 740 ml Intake Free Water 360 ml 100 ml Tube Feeding 535 ml 540 ml Other 100 ml Output Urine Total 70 ml # Voids 100 # Bowel Movements 2 2 Laboratory Tests Test 09/19/18 03:25 White Blood Count 9.8 K/UL (4.8-10.8) Red Blood Count 3.69 M/UL (4.70-6.10) L Hemoglobin 11.4 G/DL (14.2-18.0) L Hematocrit 34.9 % (42.0-52.0) L Mean Corpuscular Volume 95 FL (80-99) Mean Corpuscular Hemoglobin 31.0 PG (27.0-31.0) Mean Corpuscular Hemoglobin Concent 32.8 G/DL (32.0-36.0) Red Cell Distribution Width 14.1 % (11.6-14.8) Platelet Count 146 K/UL (150-450) L Mean Platelet Volume 7.3 FL (6.5-10.1) Neutrophils (%) (Auto) 79.6 % (45.0-75.0) H Lymphocytes (%) (Auto) 11.1 % (20.0-45.0) L Monocytes (%) (Auto) 8.8 % (1.0-10.0) Eosinophils (%) (Auto) 0.1 % (0.0-3.0) Basophils (%) (Auto) 0.4 % (0.0-2.0) Sodium Level 138 MMOL/L (136-145) Potassium Level 5.0 MMOL/L (3.5-5.1) Chloride Level 105 MMOL/L (98-107) Carbon Dioxide Level 25 MMOL/L (21-32) Anion Gap 8 mmol/L (5-15) Blood Urea Nitrogen 64 mg/dL (7-18) H Creatinine 1.6 MG/DL (0.55-1.30) H Estimat Glomerular Filtration Rate mL/min (>60) Glucose Level 195 MG/DL (74-106) H Calcium Level 9.5 MG/DL (8.5-10.1) Phosphorus Level 3.0 MG/DL (2.5-4.9) Magnesium Level 2.0 MG/DL (1.8-2.4) Hepatitis A IgM Antibody Pending Hepatitis B Surface Antigen Pending Hepatitis B Core IgM Antibody Pending Hepatitis C Antibody Pending HIV (1&2) Antibody Rapid Negative (NEGATIVE) Height (Feet): 5 Height (Inches): 8.00 Weight (Pounds): 173 General Appearance: alert Cardiovascular: normal rate Respiratory/Chest: no respiratory distress Michelle Samuel NP Sep 19, 2018 11:48
--- NOTE | 2018-09-19 14:28 | NUR ---
RD ASSESSMENT & RECOMMENDATIONS SEE CARE ACTIVITY FOR COMPLETE ASSESSMENT DAILY ESTIMATED NEEDS: Needs based on DM/ 65.5kg 25-30 kcals/kg 1707-4129 total kcals 1-1.5 g protein/kg 66-99 g total protein 25-30 mL/kg 3042-8616 total fluid mLs NUTRITION DIAGNOSIS: 1) Altered GI fxn r/t SBO and fecal impaction as evidenced by pt w/ elev tube feeding residuals, now off GT to LIS, w/ continued varied tolerance, on reglan. 2) Swallowing difficulty R/T dysphagia as evidenced by pt w/ GT, on GT feeding + oral diet on pureed INTERTYPE OPERATOR, currently w/ an order for TF only. CURRENT TF:GLUCERNA 1.5 @ 45ML/HR X 24 HRS ENTERAL NUTRITION RECOMMENDATIONS: GLUCERNA 1.5 @ 46ML/HR X 24 HRS to provide 1104ml, 1656kcal, 91g prot, 838ml free water * Increase goal rate to 46ml/hr x 24 hrs to meet 100% est kcal/prot needs * HOB >30 degrees, H2O flushes per MD * At goal, TF provides 100% of est. kcal & prot needs ADDITIONAL RECOMMENDATIONS: 1) Rec to UPDATE WT POST TXR -> RECALIBRATE BED SCALE 2) Consider CUT OFF SAWYER LOG eval for oral diet -> Pt on pureed texture diet INTERTYPE OPERATOR 3) Monitor TF tolerance: distended abdomen w/ h/o residuals 4) Wound healing: add Vit C 250mg QD, Jarocho 1pkt BID 5) Monitor lytes, replete as needed
--- NOTE | 2018-09-19 15:32 | Surgery Progress Note ---
Surgery Progress Note Subjective Additional Comments No acute events. G-tube was changed by GI. Abdominal exam stable. Objective Last 24 Hour Vital Signs Date Time Temp Pulse Resp B/P (MAP) Pulse Ox O2 Delivery O2 Flow Rate FiO2 09/19/18 12:00 98.1 101 24 120/42 (68) 96 09/19/18 12:00 Nasal Cannula 2.0 09/19/18 11:43 98 09/19/18 09:00 Nasal Cannula 2.0 09/19/18 08:27 119/59 09/19/18 08:00 98.1 102 24 119/59 (79) 97 09/19/18 07:45 109 09/19/18 04:00 Nasal Cannula 2.0 09/19/18 04:00 98.1 68 24 117/52 (73) 94 09/19/18 03:48 109 09/19/18 00:00 97.5 100 24 120/45 (70) 98 09/19/18 00:00 Nasal Cannula 2.0 09/18/18 23:20 106 09/18/18 20:44 96 Nasal Cannula 2.0 28 09/18/18 20:05 97 09/18/18 20:00 97.7 84 26 93/56 (68) 98 09/18/18 20:00 Nasal Cannula 2.0 09/18/18 16:00 90 09/18/18 16:00 Nasal Cannula 2.0 09/18/18 16:00 97.7 82 21 103/44 (63) 97 I&O Intake and Output 09/18/18 09/19/18 19:00 07:00 Intake Total 895 ml 740 ml Output Total 70 ml Balance 825 ml 740 ml Intake Free Water 360 ml 100 ml Tube Feeding 535 ml 540 ml Other 100 ml Output Urine Total 70 ml # Voids 100 # Bowel Movements 2 2 Dressing: dry Wound: clean Cardiovascular: RSR Respiratory: clear Abdomen: soft, present bowel sounds, non-distended Extremities: no tenderness, no cyanosis Laboratory Tests Test 09/19/18 03:25 White Blood Count 9.8 K/UL (4.8-10.8) Red Blood Count 3.69 M/UL (4.70-6.10) L Hemoglobin 11.4 G/DL (14.2-18.0) L Hematocrit 34.9 % (42.0-52.0) L Mean Corpuscular Volume 95 FL (80-99) Mean Corpuscular Hemoglobin 31.0 PG (27.0-31.0) Mean Corpuscular Hemoglobin Concent 32.8 G/DL (32.0-36.0) Red Cell Distribution Width 14.1 % (11.6-14.8) Platelet Count 146 K/UL (150-450) L Mean Platelet Volume 7.3 FL (6.5-10.1) Neutrophils (%) (Auto) 79.6 % (45.0-75.0) H Lymphocytes (%) (Auto) 11.1 % (20.0-45.0) L Monocytes (%) (Auto) 8.8 % (1.0-10.0) Eosinophils (%) (Auto) 0.1 % (0.0-3.0) Basophils (%) (Auto) 0.4 % (0.0-2.0) Sodium Level 138 MMOL/L (136-145) Potassium Level 5.0 MMOL/L (3.5-5.1) Chloride Level 105 MMOL/L (98-107) Carbon Dioxide Level 25 MMOL/L (21-32) Anion Gap 8 mmol/L (5-15) Blood Urea Nitrogen 64 mg/dL (7-18) H Creatinine 1.6 MG/DL (0.55-1.30) H Estimat Glomerular Filtration Rate mL/min (>60) Glucose Level 195 MG/DL (74-106) H Calcium Level 9.5 MG/DL (8.5-10.1) Phosphorus Level 3.0 MG/DL (2.5-4.9) Magnesium Level 2.0 MG/DL (1.8-2.4) Hepatitis A IgM Antibody Pending Hepatitis B Surface Antigen Pending Hepatitis B Core IgM Antibody Pending Hepatitis C Antibody Pending HIV (1&2) Antibody Rapid Negative (NEGATIVE) Plan Problems: (1) Abdominal distension Assessment & Plan: improved tolerating diet exam benign. okay to d/c from surgical standpoint Jesse Cash Sep 19, 2018 15:31
--- NOTE | 2018-09-19 15:58 | NUR ---
NURSE NOTES: Report given to ISMAEL Croft.
--- NOTE | 2018-09-19 16:29 | NUR ---
NURSE NOTES: Transferred patient to room 414-1, received by ISMAEL De Anda. Patient in stable condition. BP 119/54. 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 Belongings list acknowledged and signed. Addendum: 09/19/18 at 1639 by Aggie Mcdowell RN Attempted to call daughter 2x, no answer.
[2018-09-19] MEDS ORDERED: HydrALAZINE 25mg tab GT PRN (16:30)
[2018-09-19] MEDS ORDERED: Acetaminophen 650mg/20.3ml GT PRN (16:30)
[2018-09-19] MEDS ORDERED: Mineral Oil 30ml ud GT PRN (16:30)
--- NOTE | 2018-09-19 16:42 | NUR ---
NURSE NOTES: Received report from Ana Luisa RN /JV. pt awake, A/O x 1-2, pts on 2L O2 via NC, sat 96-96%, congested suction PRN/RT per order. pts on GT feeding, tolerating well, no residual, HOB > 30 degrees, rash around gtube site noted. johnston in place with low output, MD aware. Dressing on sacral , CDI. redness on groin area noted. IV site left forearm, 24 G saline lock. contact iso maintained. bed in low position, call light within reach, bed alarm on. fall precaution maintained. will continue to monitor.
[2018-09-19] MEDS ORDERED: Metoclopramide 10mg/2ml Inj IVP PRN (17:00)
--- NOTE | 2018-09-19 18:36 | NUR ---
NURSE NOTES: Hold GTube feeding , pts having renal ultrasound per order. will continue to monitor.
--- NOTE | 2018-09-19 18:58 | NUR ---
NURSE NOTES: Renal US completed, pt on continue GTube feeding 45cc/hr, HOB elevated . will continue to monitor.
--- NOTE | 2018-09-19 19:57 | NUR ---
NURSE NOTES: Received patient comfortably sleeping, tolerating his g-tube feeding well.
--- NOTE | 2018-09-19 20:30 | Consultation ---
DATE OF CONSULTATION: 09/19/2018 NEPHROLOGY CONSULTATION CONSULTING PHYSICIAN: Ifrah Gorman M.D. ATTENDING PHYSICIAN: Dustin Mary M.D. REASON FOR CONSULTATION: Elevated BUN and creatinine. HISTORY OF PRESENT ILLNESS: This is an elderly male, who was admitted by the attending physician for dysphagia, status post G-tube. The patient has elevation of BUN and creatinine. PAST MEDICAL HISTORY: 1. Organic brain syndrome. 2. Status post CVA. 3. Chronically combined heart failure. 4. Hypertensive cardiovascular disease. 5. Status post pacemaker insertion. 6. Type 2 diabetes mellitus. 7. Anemia of chronic kidney disease. CURRENT MEDICATIONS: Tylenol as needed, Artificial Tears, atorvastatin, intravenous fluid, sodium docusate, Aricept, subcutaneous heparin, hydralazine, insulin sliding scale, lactulose, Levemir, losartan, Reglan, mineral oil, MiraLAX, Januvia, vitamin D, and zinc oxide. ALLERGIES: No known drug allergies. FAMILY HISTORY: Unable to obtain due to mental status. SOCIAL HISTORY: Unable to obtain due to mental status. REVIEW OF SYSTEMS: Unable to obtain due to mental status. PHYSICAL EXAMINATION: GENERAL: This is an elderly male, who is in no acute distress. VITAL SIGNS: Blood pressure 120/42, mean arterial pressure 68, pulse 101, sinus tachycardia, respirations 24, and temperature 98.4 and 98.1 axillary. HEENT: The head is normocephalic and atraumatic. Pupils are equal and reactive to light and accommodation consensually. NECK: Supple. Trachea midline. There was no lymphadenopathy or thyromegaly. LUNGS: Clear to auscultation and percussion. HEART: Regular rate and rhythm without rubs, murmurs, or gallops. ABDOMEN: Soft and nontender. Bowel sounds were active. EXTREMITIES: No clubbing, cyanosis, or edema. NEUROLOGICAL: He is confused. There were no gross focal findings. LABORATORY AND ANCILLARY DATA: CBC, hemoglobin 11.4, otherwise within normal limits. Chemistry, BUN 64 and creatinine 1.6. ASSESSMENT: Chronic kidney disease, most likely secondary to diabetic nephropathy. PLAN: Avoid nephrotoxic medications. Check renal ultrasound. Thank you, Dr. Mary, for letting me participate in the care of this patient. Ifrah Gorman M.D. DR: GENESIS JOB#: [id number] CC:
[2018-09-19] MEDS: Donepezil 10mg tab GT SCH (20:40)
[2018-09-19] MEDS: Miralax 17gm pkt GT SCH (20:41)
[2018-09-20] VITALS (8 sets, daily range): BP systolic 92–132; BP diastolic 42–59
[2018-09-20] MEDS: NovoLOG Insulin Flexpen SUBQ SCH ×5 (00:11→23:51)
[2018-09-20] MEDS: Desitin Rash Paste TOPIC SCH ×3 (05:44→21:33)
[2018-09-20 06:54] LABS: BASOPHILS % (AUTO) 0.3 % (0.0-2.0); EOSINOPHILS % (AUTO) 0.2 % (0.0-3.0); HEMATOCRIT 35.6 % (42.0-52.0); HEMOGLOBIN 11.4 G/DL (14.2-18.0); LYMPHOCYTES % (AUTO) 12.6 % (20.0-45.0); MEAN CORPUSCULAR VOLUME 95 FL (80-99); MONOCYTES % (AUTO) 6.3 % (1.0-10.0); NEUTROPHILS % (AUTO) 80.6 % (45.0-75.0); PLATELET COUNT 150 K/UL (150-450); RED BLOOD COUNT 3.74 M/UL (4.70-6.10); RED CELL DISTRIBUTION WIDTH 14.2 % (11.6-14.8); WHITE BLOOD COUNT 10.3 K/UL (4.8-10.8)
--- NOTE | 2018-09-20 07:09 | NUR ---
HAND-OFF: Report given to Lelo Meyer RN.
[2018-09-20 07:18] LABS: ANION GAP 6 mmol/L (5-15); BLOOD UREA NITROGEN 77 mg/dL (7-18); CARBON DIOXIDE 27 MMOL/L (21-32); CHLORIDE 107 MMOL/L (98-107); CREATININE 1.7 MG/DL (0.55-1.30); POTASSIUM 5.5 MMOL/L (3.5-5.1); SODIUM 140 MMOL/L (136-145)
--- NOTE | 2018-09-20 08:00 | NUR ---
NURSE NOTES:\ Patient opens eyes when name called .02 on at 2L N/C,respiratory here and will suction patient.Schmid catheter in place with katerina color urine noted/Patient on G-tube feedings as ordered,no residual noted at this time,patient abdomen is distended. In report noted patient has had paracentesis.HOB is elevated,bed alarm is on,call light within reach.
[2018-09-20] MEDS: Losartan 50mg tab GT SCH (10:13)
[2018-09-20] MEDS: Lactulose 10gm/15ml UDC GT SCH ×3 (10:13→18:44)
[2018-09-20] MEDS: Docusate 100mg/10ml Liq GT SCH ×2 (10:13→18:51)
[2018-09-20] MEDS: Vitamin D 1000 IU Tab GT SCH ×2 (10:14→18:44)
--- NOTE | 2018-09-20 10:16 | Diagnostic Imaging Report ---
Indication: Abnormal renal function tests. Abnormal liver function tests Technique: Grayscale and duplex images of the kidneys, retroperitoneum, and bladder were obtained. Comparison: Abdominal sonogram 09/14/2018 Findings: Right kidney measures 11.1 cm in length. Left kidney measures 10.3 cm in length. Both kidneys demonstrate normal echogenicity. No hydronephrosis. No focal abnormality. Nonvisualized inferior vena cava. Bladder demonstrates a Schmid catheter. It demonstrates a volume of 153 mL despite the Schmdi catheter. Impression: Negative for hydronephrosis no definite hydronephrosis reported on recent abdominal ultrasound is not evident currently. Schmid catheter in place. 153 mL bladder volume despite Schmid catheter Note inability to visualize inferior cava Ascites, also previously reported. Patient has undergone interim paracentesis .
[2018-09-20] MEDS: Heparin 5000 units/ml inj SUBQ SCH ×2 (10:18→21:34)
[2018-09-20] MEDS: Levemir Flexpen SUBQ SCH (10:19)
[2018-09-20] MEDS ORDERED: Sodium Polystyrene Sulfonate 15gm Powder GT SCH (11:00)
--- NOTE | 2018-09-20 11:12 | Pulmonology Progress Note ---
Assessment/Plan Assessment/Plan Pulmonary Progress Note Assessment/Plan Problem List: (1) Atrial fibrillation and flutter ICD Codes: I48.91 - Unspecified atrial fibrillation; I48.92 - Unspecified atrial flutter SNOMED: 783072175 (2) CHF (congestive heart failure) ICD Codes: I50.9 - Heart failure, unspecified SNOMED: 31270231 (3) Pancreatitis ICD Codes: K85.90 - Acute pancreatitis without necrosis or infection, unspecified SNOMED: 76512347 (4) CVA (cerebral vascular accident) ICD Codes: I63.9 - CVA (cerebral vascular accident) SNOMED: 923339531 (5) Abdominal distension ICD Codes: R14.0 - Abdominal distension (gaseous) SNOMED: 26516622 (6) Umbilical hernia ICD Codes: K42.9 - Umbilical hernia without obstruction or gangrene SNOMED: 288926278 Qualifiers: Qualified Codes: K42.9 - Umbilical hernia without obstruction or gangrene Assessment/Plan: liver mass abdominal distention PLAN care as is await gi regarding feeds general surgery to follow monitor for change impression, plan, and exam edited and reviewed in detail care discussed with RN Subjective ROS Limited/Unobtainable: Yes Allergies: Coded Allergies: No Known Allergies (Verified , 06/07/08) Subjective abdmen distende gi and gs called to followup Objective Vital Signs Noted Height (Feet): 5 Height (Inches): 8.00 Weight (Pounds): 160 Objective WDWN NAD clear breath sounds bilaterally without rhonchi or wheeze [id number] without MRG NABS noted distention GT in place no CCE nonfocal confused Subjective ROS Limited/Unobtainable: No Allergies: Coded Allergies: No Known Allergies (Verified , 06/07/08) Objective Last 24 Hour Vital Signs Date Time Temp Pulse Resp B/P (MAP) Pulse Ox O2 Delivery O2 Flow Rate FiO2 09/20/18 10:13 123/59 09/20/18 10:02 95 123/59 (80) 09/20/18 09:00 Nasal Cannula 2.0 09/20/18 08:58 96 Nasal Cannula 2.0 28 09/20/18 08:00 96.0 102 20 119/42 (67) 94 09/20/18 04:00 97.1 80 16 115/49 (71) 96 09/20/18 00:14 97.3 85 18 132/59 (83) 96 09/19/18 20:48 95 Nasal Cannula 2.0 28 09/19/18 20:18 97.9 93 20 114/45 (68) 94 09/19/18 20:08 Nasal Cannula 2.0 09/19/18 17:29 98.1 89 20 119/54 (75) 98 09/19/18 17:00 98.2 83 18 122/45 (70) 96 09/19/18 16:00 98.1 89 20 119/54 (75) 98 09/19/18 16:00 Nasal Cannula 2.0 09/19/18 15:13 106 09/19/18 12:00 98.1 101 24 120/42 (68) 96 09/19/18 12:00 Nasal Cannula 2.0 09/19/18 11:43 98 Intake and Output 09/19/18 09/20/18 19:00 07:00 Intake Total 580 ml 690 ml Output Total 300 ml Balance 580 ml 390 ml Intake Free Water 100 ml 150 ml Tube Feeding 450 ml 540 ml Other 30 ml Output Urine Total 300 ml # Bowel Movements 1 Laboratory Tests 09/20/18 05:40: White Blood Count 10.3, Red Blood Count 3.74L, Hemoglobin 11.4L, Hematocrit 35.6L, Mean Corpuscular Volume 95, Mean Corpuscular Hemoglobin 30.5, Mean Corpuscular Hemoglobin Concent 31.9L, Red Cell Distribution Width 14.2, Platelet Count 150, Mean Platelet Volume 7.4, Neutrophils (%) (Auto) 80.6H, Lymphocytes (%) (Auto) 12.6L, Monocytes (%) (Auto) 6.3, Eosinophils (%) (Auto) 0.2, Basophils (%) (Auto) 0.3, Sodium Level 140, Potassium Level 5.5H, Chloride Level 107, Carbon Dioxide Level 27, Anion Gap 6, Blood Urea Nitrogen 77H, Creatinine 1.7H, Estimat Glomerular Filtration Rate , Glucose Level 141H, Calcium Level 10.0 Current Medications Medications (Trade) Dose Ordered Sig/Reagan Route PRN Reason Start Time Stop Time Status Last Admin Dose Admin Acetaminophen (Tylenol) 650 mg Q4H PRN GT Mild Pain/Temp > 100.5 09/19/18 16:30 10/09/18 16:29 Artificial Tears (Akwa-Tears) 1 drop EVERY 12 HOURS BOTH EYES 09/19/18 21:00 10/15/18 20:59 09/19/18 20:40 Atorvastatin Calcium (Lipitor) 10 mg BEDTIME GT 09/19/18 21:00 10/04/18 20:59 09/19/18 20:40 Dextrose (Dextrose 50%) 25 ml Q30M PRN IV Hypoglycemia 09/19/18 16:30 10/03/18 21:29 Dextrose (Dextrose 50%) 50 ml Q30M PRN IV Hypoglycemia 09/19/18 16:30 10/03/18 21:29 Docusate Sodium (Colace) 100 mg BID GT 09/19/18 18:00 10/04/18 08:59 09/20/18 10:13 Donepezil HCl (Aricept) 10 mg BEDTIME GT 09/19/18 21:00 10/04/18 20:59 09/19/18 20:40 Heparin Sodium (Porcine) (Heparin 5000 units/ml) 5,000 units EVERY 12 HOURS SUBQ 09/19/18 21:00 10/04/18 08:59 09/20/18 10:18 Hydralazine HCl (Apresoline) 25 mg Q6H PRN GT For High Blood Pressure 09/19/18 16:30 10/09/18 16:29 Insulin Aspart (NovoLOG) EVERY 6 HOURS SUBQ 09/19/18 18:00 10/10/18 06:29 09/20/18 05:45 Insulin Detemir (Levemir) 5 units DAILY SUBQ 09/20/18 09:00 10/04/18 08:59 09/20/18 10:19 Lactulose (Cephulac) 10 gm THREE TIMES A DAY GT 09/19/18 18:00 10/08/18 12:59 09/20/18 10:13 Losartan Potassium (Cozaar) 100 mg DAILY GT 09/20/18 09:00 10/04/18 08:59 09/20/18 10:13 Metoclopramide HCl (Reglan) 5 mg Q8H PRN IVP Nausea & Vomiting 09/19/18 17:00 10/10/18 08:59 Mineral Oil (Mineral Oil) 30 ml DAILYPRN PRN GT Constipation 09/19/18 16:30 10/09/18 16:29 Polyethylene Glycol (Miralax) 17 gm BEDTIME GT 09/19/18 21:00 10/06/18 20:59 09/19/18 20:41 Sitagliptin Phosphate (Januvia) 100 mg DAILY GT 09/20/18 09:00 10/04/18 08:59 09/20/18 10:14 Sodium Polystyrene Sulfonate (Kayexalate) 30 gm ONCE GT 09/20/18 11:00 09/20/18 12:30 Vitamin D (Vitamin D) 1,000 intlu TWICE A DAY GT 09/19/18 18:00 10/04/18 08:59 09/20/18 10:14 Zinc Oxide (Desitin) 1 applic EVERY 8 HOURS TOPIC 09/19/18 22:00 10/08/18 10:29 09/20/18 05:44 Marcellus Castillo MD Sep 20, 2018 11:12
--- NOTE | 2018-09-20 11:56 | GI Progress Note ---
Assessment/Plan Problems: (1) Anemia ICD Codes: D64.9 - Anemia, unspecified SNOMED: 454902073 (2) Liver mass ICD Codes: R16.0 - Hepatomegaly, not elsewhere classified SNOMED: 262334971 (3) Fecal impaction ICD Codes: K56.41 - Fecal impaction SNOMED: 97164239 (4) CVA (cerebral vascular accident) ICD Codes: I63.9 - CVA (cerebral vascular accident) SNOMED: 520028642 (5) G tube feedings ICD Codes: Z93.1 - Gastrostomy status SNOMED: 214919416, 844211434, 760372572 (6) Abdominal distension ICD Codes: R14.0 - Abdominal distension (gaseous) SNOMED: 19348984 (7) Constipation ICD Codes: K59.00 - Constipation, unspecified SNOMED: 43295137 Qualifiers: Qualified Codes: K59.00 - Constipation, unspecified Status: stable Status Narrative Discussed with Dr. Gonzales. Assessment/Plan Status post paracentesis yielding 5.5 L of fluid GT was changed at the bedside GT site care per wound care recommendations G-tube feedings Reglan low dose Monitor H&H, PRN transfusions Turn patient every 2 hours bowel regimen The patient was seen and examined at bedside and all new and available data was reviewed in the patients chart. I agree with the above findings, impression and plan. (Patient seen earlier today. Signature stamp does not reflect patient encounter time.). - Demetris Gonzales MD Subjective Subjective Limited Objective Last 24 Hour Vital Signs Date Time Temp Pulse Resp B/P (MAP) Pulse Ox O2 Delivery O2 Flow Rate FiO2 09/20/18 10:13 123/59 09/20/18 10:02 95 123/59 (80) 09/20/18 09:00 Nasal Cannula 2.0 09/20/18 08:58 96 Nasal Cannula 2.0 28 09/20/18 08:00 96.0 102 20 119/42 (67) 94 09/20/18 04:00 97.1 80 16 115/49 (71) 96 09/20/18 00:14 97.3 85 18 132/59 (83) 96 09/19/18 20:48 95 Nasal Cannula 2.0 28 09/19/18 20:18 97.9 93 20 114/45 (68) 94 09/19/18 20:08 Nasal Cannula 2.0 09/19/18 17:29 98.1 89 20 119/54 (75) 98 09/19/18 17:00 98.2 83 18 122/45 (70) 96 09/19/18 16:00 98.1 89 20 119/54 (75) 98 09/19/18 16:00 Nasal Cannula 2.0 09/19/18 15:13 106 09/19/18 12:00 98.1 101 24 120/42 (68) 96 09/19/18 12:00 Nasal Cannula 2.0 Intake and Output 09/19/18 09/20/18 19:00 07:00 Intake Total 580 ml 690 ml Output Total 300 ml Balance 580 ml 390 ml Intake Free Water 100 ml 150 ml Tube Feeding 450 ml 540 ml Other 30 ml Output Urine Total 300 ml # Bowel Movements 1 Laboratory Tests Test 09/20/18 05:40 White Blood Count 10.3 K/UL (4.8-10.8) Red Blood Count 3.74 M/UL (4.70-6.10) L Hemoglobin 11.4 G/DL (14.2-18.0) L Hematocrit 35.6 % (42.0-52.0) L Mean Corpuscular Volume 95 FL (80-99) Mean Corpuscular Hemoglobin 30.5 PG (27.0-31.0) Mean Corpuscular Hemoglobin Concent 31.9 G/DL (32.0-36.0) L Red Cell Distribution Width 14.2 % (11.6-14.8) Platelet Count 150 K/UL (150-450) Mean Platelet Volume 7.4 FL (6.5-10.1) Neutrophils (%) (Auto) 80.6 % (45.0-75.0) H Lymphocytes (%) (Auto) 12.6 % (20.0-45.0) L Monocytes (%) (Auto) 6.3 % (1.0-10.0) Eosinophils (%) (Auto) 0.2 % (0.0-3.0) Basophils (%) (Auto) 0.3 % (0.0-2.0) Sodium Level 140 MMOL/L (136-145) Potassium Level 5.5 MMOL/L (3.5-5.1) H Chloride Level 107 MMOL/L (98-107) Carbon Dioxide Level 27 MMOL/L (21-32) Anion Gap 6 mmol/L (5-15) Blood Urea Nitrogen 77 mg/dL (7-18) H Creatinine 1.7 MG/DL (0.55-1.30) H Estimat Glomerular Filtration Rate mL/min (>60) Glucose Level 141 MG/DL (74-106) H Calcium Level 10.0 MG/DL (8.5-10.1) Height (Feet): 5 Height (Inches): 8.00 Weight (Pounds): 173 General Appearance: WD/WN, no apparent distress, alert Cardiovascular: normal rate Respiratory/Chest: normal breath sounds, no respiratory distress Abdominal Exam: normal bowel sounds, non tender, soft, GT site Extremities: non-tender Michelle Samuel NP Sep 20, 2018 11:56
--- NOTE | 2018-09-20 13:50 | NUR ---
NURSE NOTES:WOUND CARE FOLLOW-UP NOTES: Evolving DTPI sacrum. Base of wound has 100% soft necrosis (L)2.5cm x (W)3.2cm with surrounding non-blanchable erythema with induration noted. (L)6.5cm x(W)8cm. Erythema noted to scrotum . Non-blanchable erythema with fluctuance L heel. Non-blanchable erythema without fluctuance R heel. G site erythematous with denuded skin. Surrounding adhesive related skin tears noted to surrounding skin with small amt sanguineous exudate.Area gentlyu cleansed with soap and water .Pat dried. Zinc Oxide paste applied to GT site and surrounding skin damage . 4 x $ drain gauze appied around Gt site without tape. Recommended to primary nurse to avoid taping gauze around Gt . Tx.Plan: Cleanse Sacral wound with Saline. Apply Therahoney. Apply Moisture Barrier Periwound. Cover with Optifoam drsg. Change every 3 days and prn. Apply Moisture Barrier Paste to Bilat groin and scrotum with each incontinence care. Gently cleanse GT site with Soap and water. Pat dry. Apply Zinc Oxide paste daily and prn.Place 4x4 gauze around GT. Do Not Tape Gauze. Apply Cavilon Skin Barrier to both heels. Cover each heel with Optifoam drsg. Change every 7 days and prn. APM/WIL Mattress. Reposition at least every 2hours or as tolerated. Off-load heels with pillow.
[2018-09-20] MEDS: Artificial Tears 1.4% Op Soln BOTH EYES SCH ×2 (13:54→21:32)
--- NOTE | 2018-09-20 15:15 | Surgery Progress Note ---
Surgery Progress Note Subjective Additional Comments doing better downgraded to medr Objective Last 24 Hour Vital Signs Date Time Temp Pulse Resp B/P (MAP) Pulse Ox O2 Delivery O2 Flow Rate FiO2 09/20/18 12:00 97.2 91 20 106/48 (67) 96 09/20/18 10:13 123/59 09/20/18 10:02 95 123/59 (80) 09/20/18 09:00 Nasal Cannula 2.0 09/20/18 08:58 96 Nasal Cannula 2.0 28 09/20/18 08:00 96.0 102 20 119/42 (67) 94 09/20/18 04:00 97.1 80 16 115/49 (71) 96 09/20/18 00:14 97.3 85 18 132/59 (83) 96 09/19/18 20:48 95 Nasal Cannula 2.0 28 09/19/18 20:18 97.9 93 20 114/45 (68) 94 09/19/18 20:08 Nasal Cannula 2.0 09/19/18 17:29 98.1 89 20 119/54 (75) 98 09/19/18 17:00 98.2 83 18 122/45 (70) 96 09/19/18 16:00 98.1 89 20 119/54 (75) 98 09/19/18 16:00 Nasal Cannula 2.0 I&O Intake and Output 09/19/18 09/20/18 19:00 07:00 Intake Total 580 ml 690 ml Output Total 300 ml Balance 580 ml 390 ml Intake Free Water 100 ml 150 ml Tube Feeding 450 ml 540 ml Other 30 ml Output Urine Total 300 ml # Bowel Movements 1 Dressing: other Wound: other Cardiovascular: RSR Respiratory: clear Abdomen: soft, non-tender, present bowel sounds, non-distended Extremities: no edema, no tenderness, no cyanosis Laboratory Tests Test 09/20/18 05:40 White Blood Count 10.3 K/UL (4.8-10.8) Red Blood Count 3.74 M/UL (4.70-6.10) L Hemoglobin 11.4 G/DL (14.2-18.0) L Hematocrit 35.6 % (42.0-52.0) L Mean Corpuscular Volume 95 FL (80-99) Mean Corpuscular Hemoglobin 30.5 PG (27.0-31.0) Mean Corpuscular Hemoglobin Concent 31.9 G/DL (32.0-36.0) L Red Cell Distribution Width 14.2 % (11.6-14.8) Platelet Count 150 K/UL (150-450) Mean Platelet Volume 7.4 FL (6.5-10.1) Neutrophils (%) (Auto) 80.6 % (45.0-75.0) H Lymphocytes (%) (Auto) 12.6 % (20.0-45.0) L Monocytes (%) (Auto) 6.3 % (1.0-10.0) Eosinophils (%) (Auto) 0.2 % (0.0-3.0) Basophils (%) (Auto) 0.3 % (0.0-2.0) Sodium Level 140 MMOL/L (136-145) Potassium Level 5.5 MMOL/L (3.5-5.1) H Chloride Level 107 MMOL/L (98-107) Carbon Dioxide Level 27 MMOL/L (21-32) Anion Gap 6 mmol/L (5-15) Blood Urea Nitrogen 77 mg/dL (7-18) H Creatinine 1.7 MG/DL (0.55-1.30) H Estimat Glomerular Filtration Rate mL/min (>60) Glucose Level 141 MG/DL (74-106) H Calcium Level 10.0 MG/DL (8.5-10.1) Plan Problems: (1) Abdominal distension Assessment & Plan: improved tolerating diet exam benign. okay to d/c from surgical standpoint (2) Malnutrition Assessment & Plan: Evolving DTPI sacrum. Base of wound has 100% soft necrosis ( L)2.5cm x (W)3.2cm with surrounding non-blanchable erythema with induration noted. (L)6.5cm x(W)8cm. Erythema noted to scrotum . Non-blanchable erythema with fluctuance L heel. Non-blanchable erythema without fluctuance R heel. G site erythematous with denuded skin. Surrounding adhesive related skin tears noted to surrounding skin with small amt sanguineous exudate.Area gentlyu cleansed with soap and water .Pat dried. Zinc Oxide paste applied to GT site and surrounding skin damage . 4 x $ drain gauze appied around Gt site without tape. Recommended to primary nurse to avoid taping gauze around Gt . Tx.Plan: Cleanse Sacral wound with Saline. Apply Therahoney. Apply Moisture Barrier Periwound. Cover with Optifoam drsg. Change every 3 days and prn. Apply Moisture Barrier Paste to Bilat groin and scrotum with each incontinence care. Gently cleanse GT site with Soap and water. Pat dry. Apply Zinc Oxide paste daily and prn.Place 4x4 gauze around GT. Do Not Tape Gauze. Apply Cavilon Skin Barrier to both heels. Cover each heel with Optifoam drsg. Change every 7 days and prn. APM/WIL Mattress. Reposition at least every 2hours or as tolerated. Off-load heels with pillow. Jesse Cash Sep 20, 2018 15:15
--- NOTE | 2018-09-20 16:03 | Hematology/Onc Progress Note ---
Assessment/Plan Assessment/Plan Assessment and Recs # Liver mass - large heterogeneous mass in the right lobe of the liver suspicious for malignant neoplasm --> imaging has been reviewed and c/w likely malignancy --> as per Gi recs, defer tumor biopsy, has been present prior admission --> treatment once have results of primary --> imaging as needed r/o ascites --> tumor markers reviewed are wnl # Anemia of chronic disease due to underlying chronic medical issues, multifactorial --> Anemia workup has been ordered, rule out gi bleed, ferritin is 118 --> No evidence of hemolysis is noted, peripheral smear has been reviewed. --> Hgb goal >7. Transfuse prn. --> Epogen or iron at this time is not particularly indicated --> Medications have been reviewed --> improved trend 10-->11-->12-->11.8-->11.5-->11.4-->11.4 # Hypercalcemia - on admission elev, due to likely dehydration --> Ca has improved, on ivf --> on IVF also for hypernatremia --> per renal recs # Fecal impaction/constipation --> on colace, senna as per gi # Abdominal distension --> improved mildly, per gi # DVT ppx with heparin sq The timing of this note does not necessarily reflect the time of the patient was seen. GREATLY APPRECIATE CONSULTATION. Subjective Hematologic/Lymphatic: Reports: anemia Allergies: Coded Allergies: No Known Allergies (Verified , 06/07/08) All Systems: reviewed and negative except above Subjective 09/10: no bleeding, no night sweats, no events otherwise, labs pending 09/11: liver biopsy cancelled, no events, tumor markers neg 09/12: no events, no bleeding, h/h reviewed, no f/c 09/13: patient being turned every 2 hrs, seen by gi 09/14: no events, still with abd pain, imaging per gi 09/16: arousable, nonverbal, no events reported 09/17: 5.5L of fluid removed via para, no events otherwise, no f/c 09/18: seen by pulm, gi, no events, wbc is 11.3 09/19: no f/c, no events reported, on heparin sq dvt ppx 09/20: resting in bed, no acute events labs reviewed. Objective Objective Current Medications Medications (Trade) Dose Ordered Sig/Reagan Route PRN Reason Start Time Stop Time Status Last Admin Dose Admin Acetaminophen (Tylenol) 650 mg Q4H PRN GT Mild Pain/Temp > 100.5 09/19/18 16:30 10/09/18 16:29 Artificial Tears (Akwa-Tears) 1 drop EVERY 12 HOURS BOTH EYES 09/19/18 21:00 10/15/18 20:59 09/20/18 13:54 Atorvastatin Calcium (Lipitor) 10 mg BEDTIME GT 09/19/18 21:00 10/04/18 20:59 09/19/18 20:40 Dextrose (Dextrose 50%) 25 ml Q30M PRN IV Hypoglycemia 09/19/18 16:30 10/03/18 21:29 Dextrose (Dextrose 50%) 50 ml Q30M PRN IV Hypoglycemia 09/19/18 16:30 10/03/18 21:29 Docusate Sodium (Colace) 100 mg BID GT 09/19/18 18:00 10/04/18 08:59 09/20/18 10:13 Donepezil HCl (Aricept) 10 mg BEDTIME GT 09/19/18 21:00 10/04/18 20:59 09/19/18 20:40 Heparin Sodium (Porcine) (Heparin 5000 units/ml) 5,000 units EVERY 12 HOURS SUBQ 09/19/18 21:00 10/04/18 08:59 09/20/18 10:18 Hydralazine HCl (Apresoline) 25 mg Q6H PRN GT For High Blood Pressure 09/19/18 16:30 10/09/18 16:29 Insulin Aspart (NovoLOG) EVERY 6 HOURS SUBQ 09/19/18 18:00 10/10/18 06:29 09/20/18 12:29 Insulin Detemir (Levemir) 5 units DAILY SUBQ 09/20/18 09:00 10/04/18 08:59 09/20/18 10:19 Lactulose (Cephulac) 10 gm THREE TIMES A DAY GT 09/19/18 18:00 10/08/18 12:59 09/20/18 14:23 Losartan Potassium (Cozaar) 100 mg DAILY GT 09/20/18 09:00 10/04/18 08:59 09/20/18 10:13 Metoclopramide HCl (Reglan) 5 mg Q8H PRN IVP Nausea & Vomiting 09/19/18 17:00 10/10/18 08:59 Mineral Oil (Mineral Oil) 30 ml DAILYPRN PRN GT Constipation 09/19/18 16:30 10/09/18 16:29 Polyethylene Glycol (Miralax) 17 gm BEDTIME GT 09/19/18 21:00 10/06/18 20:59 09/19/18 20:41 Sitagliptin Phosphate (Januvia) 100 mg DAILY GT 09/20/18 09:00 10/04/18 08:59 09/20/18 10:14 Vitamin D (Vitamin D) 1,000 intlu TWICE A DAY GT 09/19/18 18:00 10/04/18 08:59 09/20/18 10:14 Zinc Oxide (Desitin) 1 applic EVERY 8 HOURS TOPIC 09/19/18 22:00 10/08/18 10:29 09/20/18 15:36 Last 24 Hour Vital Signs Date Time Temp Pulse Resp B/P (MAP) Pulse Ox O2 Delivery O2 Flow Rate FiO2 09/20/18 12:00 97.2 91 20 106/48 (67) 96 09/20/18 10:13 123/59 09/20/18 10:02 95 123/59 (80) 09/20/18 09:00 Nasal Cannula 2.0 09/20/18 08:58 96 Nasal Cannula 2.0 28 09/20/18 08:00 96.0 102 20 119/42 (67) 94 09/20/18 04:00 97.1 80 16 115/49 (71) 96 09/20/18 00:14 97.3 85 18 132/59 (83) 96 09/19/18 20:48 95 Nasal Cannula 2.0 28 09/19/18 20:18 97.9 93 20 114/45 (68) 94 09/19/18 20:08 Nasal Cannula 2.0 09/19/18 17:29 98.1 89 20 119/54 (75) 98 09/19/18 17:00 98.2 83 18 122/45 (70) 96 09/19/18 16:00 98.1 89 20 119/54 (75) 98 09/19/18 16:00 Nasal Cannula 2.0 09/19/18 15:13 106 09/19/18 12:00 98.1 101 24 120/42 (68) 96 09/19/18 12:00 Nasal Cannula 2.0 09/19/18 11:43 98 09/19/18 09:00 Nasal Cannula 2.0 09/19/18 08:27 119/59 09/19/18 08:00 98.1 102 24 119/59 (79) 97 09/19/18 07:45 109 09/19/18 04:00 Nasal Cannula 2.0 09/19/18 04:00 98.1 68 24 117/52 (73) 94 09/19/18 03:48 109 09/19/18 00:00 97.5 100 24 120/45 (70) 98 09/19/18 00:00 Nasal Cannula 2.0 09/18/18 23:20 106 09/18/18 20:44 96 Nasal Cannula 2.0 28 09/18/18 20:05 97 09/18/18 20:00 97.7 84 26 93/56 (68) 98 09/18/18 20:00 Nasal Cannula 2.0 09/18/18 16:00 90 09/18/18 16:00 Nasal Cannula 2.0 09/18/18 16:00 97.7 82 21 103/44 (63) 97 Intake and Output 09/19/18 09/20/18 19:00 07:00 Intake Total 580 ml 690 ml Output Total 300 ml Balance 580 ml 390 ml Intake Free Water 100 ml 150 ml Tube Feeding 450 ml 540 ml Other 30 ml Output Urine Total 300 ml # Bowel Movements 1 Labs Test 09/18/18 03:00 09/19/18 03:25 09/20/18 05:40 White Blood Count 11.3 K/UL (4.8-10.8) 9.8 K/UL (4.8-10.8) 10.3 K/UL (4.8-10.8) Red Blood Count 3.79 M/UL (4.70-6.10) 3.69 M/UL (4.70-6.10) 3.74 M/UL (4.70-6.10) Hemoglobin 11.6 G/DL (14.2-18.0) 11.4 G/DL (14.2-18.0) 11.4 G/DL (14.2-18.0) Hematocrit 36.3 % (42.0-52.0) 34.9 % (42.0-52.0) 35.6 % (42.0-52.0) Mean Corpuscular Volume 96 FL (80-99) 95 FL (80-99) 95 FL (80-99) Mean Corpuscular Hemoglobin 30.6 PG (27.0-31.0) 31.0 PG (27.0-31.0) 30.5 PG (27.0-31.0) Mean Corpuscular Hemoglobin Concent 31.9 G/DL (32.0-36.0) 32.8 G/DL (32.0-36.0) 31.9 G/DL (32.0-36.0) Red Cell Distribution Width 14.5 % (11.6-14.8) 14.1 % (11.6-14.8) 14.2 % (11.6-14.8) Platelet Count 153 K/UL (150-450) 146 K/UL (150-450) 150 K/UL (150-450) Mean Platelet Volume 6.9 FL (6.5-10.1) 7.3 FL (6.5-10.1) 7.4 FL (6.5-10.1) Neutrophils (%) (Auto) 83.0 % (45.0-75.0) 79.6 % (45.0-75.0) 80.6 % (45.0-75.0) Lymphocytes (%) (Auto) 8.2 % (20.0-45.0) 11.1 % (20.0-45.0) 12.6 % (20.0-45.0) Monocytes (%) (Auto) 8.5 % (1.0-10.0) 8.8 % (1.0-10.0) 6.3 % (1.0-10.0) Eosinophils (%) (Auto) 0.1 % (0.0-3.0) 0.1 % (0.0-3.0) 0.2 % (0.0-3.0) Basophils (%) (Auto) 0.3 % (0.0-2.0) 0.4 % (0.0-2.0) 0.3 % (0.0-2.0) Sodium Level 139 MMOL/L (136-145) 138 MMOL/L (136-145) 140 MMOL/L (136-145) Potassium Level 4.5 MMOL/L (3.5-5.1) 5.0 MMOL/L (3.5-5.1) 5.5 MMOL/L (3.5-5.1) Chloride Level 107 MMOL/L (98-107) 105 MMOL/L (98-107) 107 MMOL/L (98-107) Carbon Dioxide Level 27 MMOL/L (21-32) 25 MMOL/L (21-32) 27 MMOL/L (21-32) Anion Gap 5 mmol/L (5-15) 8 mmol/L (5-15) 6 mmol/L (5-15) Blood Urea Nitrogen 49 mg/dL (7-18) 64 mg/dL (7-18) 77 mg/dL (7-18) Creatinine 1.4 MG/DL (0.55-1.30) 1.6 MG/DL (0.55-1.30) 1.7 MG/DL (0.55-1.30) Estimat Glomerular Filtration Rate mL/min (>60) mL/min (>60) mL/min (>60) Glucose Level 162 MG/DL (74-106) 195 MG/DL (74-106) 141 MG/DL (74-106) Calcium Level 10.1 MG/DL (8.5-10.1) 9.5 MG/DL (8.5-10.1) 10.0 MG/DL (8.5-10.1) Total Bilirubin 0.4 MG/DL (0.2-1.0) Aspartate Amino Transf (AST/SGOT) 74 U/L (15-37) Alanine Aminotransferase (ALT/SGPT) 14 U/L (12-78) Alkaline Phosphatase 269 U/L (46-116) Total Protein 5.3 G/DL (6.4-8.2) Albumin 1.2 G/DL (3.4-5.0) Globulin 4.1 g/dL Albumin/Globulin Ratio 0.3 (1.0-2.7) Phosphorus Level 3.0 MG/DL (2.5-4.9) Magnesium Level 2.0 MG/DL (1.8-2.4) Hepatitis A IgM Antibody Negative (Negative) Hepatitis B Surface Antigen Negative (Negative) Hepatitis B Core IgM Antibody Negative (Negative) Hepatitis C Antibody 0.2 s/co ratio (0.0-0.9) HIV (1&2) Antibody Rapid Negative (NEGATIVE) Height (Feet): 5 Height (Inches): 8.00 Weight (Pounds): 173 Objective Gen: well appearing, no apparent distress, alert Head: normocephalic EENT: PERRL/EOMI, normal ENT inspection Pulm: normal breath sounds, no respiratory distress. NC+ CV: rrr. no mgr GI: normal inspection, non tender, soft, normal bowel sounds, non-distended ++ gtube Rectal: deferred Gu: johnston++ Musculoskeletal: normal inspection, back normal Neurologic: normal inspection, alert, oriented x3, responsive Psychiatric: normal inspection, judgement/insight normal, memory normal Skin: normal inspection, normal color, no rash, warm/dry, palpation normal, well hydrated Fadi Vicente MD Sep 20, 2018 16:03
--- NOTE | 2018-09-20 18:30 | NUR ---
NURSE NOTES: Patient resting ,tolerating g-tube feedings.Patient prn suction.HOB is elevated.
--- NOTE | 2018-09-20 19:25 | NUR ---
HAND-OFF: Report given to MARIANNE GUEVARA.
--- NOTE | 2018-09-20 20:00 | NUR ---
NURSE NOTES: Received patient asleep,comfortable,kept clean and dry,tolerating his g-tube feeding well.
--- NOTE | 2018-09-20 20:04 | NUR ---
CASE MANAGEMENT: REVIEW SI: PANCREATITIS . ASCITES PARACENTESIS 09/16 T 97.2 HR 104 RR 20 BP 123/59 SAT 96% NC/2L K 5.5 BUN 77 CR 1.7 IS: LACTULOSE GT TID COZAAR GT QD HEPARIN SUBQ Q12HR MED/SURG STATUS DCP: PATIENT IS FROM [facility]
[2018-09-20] MEDS: Donepezil 10mg tab GT SCH (21:32)
[2018-09-20] MEDS: Miralax 17gm pkt GT SCH (21:33)
[2018-09-21 00:09] VITALS: BP 115/48
[2018-09-21 04:00] VITALS: BP 98/57
[2018-09-21] MEDS: NovoLOG Insulin Flexpen SUBQ SCH ×3 (06:00→17:44)
[2018-09-21] MEDS: Desitin Rash Paste TOPIC SCH ×3 (06:16→21:25)
[2018-09-21 06:25] LABS: BASOPHILS % (AUTO) 0.3 % (0.0-2.0); EOSINOPHILS % (AUTO) 0.3 % (0.0-3.0); HEMATOCRIT 32.7 % (42.0-52.0); HEMOGLOBIN 10.5 G/DL (14.2-18.0); LYMPHOCYTES % (AUTO) 14.3 % (20.0-45.0); MEAN CORPUSCULAR VOLUME 95 FL (80-99); MONOCYTES % (AUTO) 6.2 % (1.0-10.0); NEUTROPHILS % (AUTO) 78.9 % (45.0-75.0); PLATELET COUNT 173 K/UL (150-450); RED BLOOD COUNT 3.45 M/UL (4.70-6.10); RED CELL DISTRIBUTION WIDTH 14.5 % (11.6-14.8); WHITE BLOOD COUNT 10.1 K/UL (4.8-10.8)
[2018-09-21 07:07] LABS: ANION GAP 6 mmol/L (5-15); BLOOD UREA NITROGEN 84 mg/dL (7-18); CALCIUM 10.1 MG/DL (8.5-10.1); CARBON DIOXIDE 28 MMOL/L (21-32); CHLORIDE 109 MMOL/L (98-107); CREATININE 1.5 MG/DL (0.55-1.30); SODIUM 143 MMOL/L (136-145)
[2018-09-21 08:00] VITALS: BP 111/50
--- NOTE | 2018-09-21 08:04 | NUR ---
NURSE NOTES: Patient alert x1, non verbal; IV LFA 22G flushes well; Glucerna 1.5 running at 45cc, no residual; head of the bed elevated, side rails up x2, breaks engaged, bed alarm on; nasal cannula 2 liter, no sign of distress and shortness of breath; will keep monitoring.
--- NOTE | 2018-09-21 08:05 | NUR ---
HAND-OFF: Report given to Erum Delgadillo RN.
[2018-09-21] MEDS: Vitamin D 1000 IU Tab GT SCH ×2 (09:10→17:44)
[2018-09-21] MEDS: Losartan 50mg tab GT SCH (09:11)
[2018-09-21] MEDS: Artificial Tears 1.4% Op Soln BOTH EYES SCH ×2 (09:11→21:25)
[2018-09-21] MEDS: Lactulose 10gm/15ml UDC GT SCH ×3 (09:11→17:44)
[2018-09-21] MEDS: Docusate 100mg/10ml Liq GT SCH ×2 (09:11→17:44)
[2018-09-21] MEDS: Heparin 5000 units/ml inj SUBQ SCH ×2 (09:12→21:34)
[2018-09-21] MEDS: Levemir Flexpen SUBQ SCH (09:13)
[2018-09-21 12:00] VITALS: BP 108/56
[2018-09-21 16:00] VITALS: BP 125/86
--- NOTE | 2018-09-21 16:22 | Pulmonology Progress Note ---
Assessment/Plan Assessment/Plan Pulmonary Progress Note Assessment/Plan Problem List: (1) Atrial fibrillation and flutter ICD Codes: I48.91 - Unspecified atrial fibrillation; I48.92 - Unspecified atrial flutter SNOMED: 505308133 (2) CHF (congestive heart failure) ICD Codes: I50.9 - Heart failure, unspecified SNOMED: 05921573 (3) Pancreatitis ICD Codes: K85.90 - Acute pancreatitis without necrosis or infection, unspecified SNOMED: 78665838 (4) CVA (cerebral vascular accident) ICD Codes: I63.9 - CVA (cerebral vascular accident) SNOMED: 151187372 (5) Abdominal distension ICD Codes: R14.0 - Abdominal distension (gaseous) SNOMED: 00269995 (6) Umbilical hernia ICD Codes: K42.9 - Umbilical hernia without obstruction or gangrene SNOMED: 636032505 Qualifiers: Qualified Codes: K42.9 - Umbilical hernia without obstruction or gangrene Assessment/Plan: Liver mass - large heterogeneous mass in the right lobe of the liver suspicious for malignant neoplasm abdominal distention improving, GI/Heme following, K improved PLAN care as is await gi regarding feeds general surgery to follow monitor for change impression, plan, and exam edited and reviewed in detail care discussed with RN Subjective ROS Limited/Unobtainable: Yes Allergies: Coded Allergies: No Known Allergies (Verified , 06/07/08) Subjective abdmen distende gi and gs called to followup Objective Vital Signs Noted Height (Feet): 5 Height (Inches): 8.00 Weight (Pounds): 160 Objective WDWN NAD clear breath sounds bilaterally without rhonchi or wheeze [id number] without MRG NABS noted distention GT in place no CCE nonfocal confused Subjective ROS Limited/Unobtainable: No Allergies: Coded Allergies: No Known Allergies (Verified , 06/07/08) Objective Last 24 Hour Vital Signs Date Time Temp Pulse Resp B/P (MAP) Pulse Ox O2 Delivery O2 Flow Rate FiO2 09/21/18 12:00 97.4 96 20 108/56 (73) 96 09/21/18 09:11 111/50 09/21/18 09:00 Nasal Cannula 2.0 09/21/18 08:30 95 Nasal Cannula 2.0 28 09/21/18 08:00 97.4 105 20 111/50 (70) 94 09/21/18 04:00 97.4 98 21 98/57 (71) 96 09/21/18 00:09 97.7 99 21 115/48 (70) 96 09/20/18 21:00 Nasal Cannula 2.0 09/20/18 21:00 95 Nasal Cannula 2.0 28 09/20/18 20:08 97.7 64 21 92/58 (69) 95 09/20/18 18:56 104 20 110/58 (75) 94 Intake and Output 09/20/18 09/21/18 19:00 07:00 Intake Total 540 ml 690 ml Output Total 350 ml Balance 190 ml 690 ml Intake Free Water 150 ml Tube Feeding 540 ml 540 ml Output Urine Total 350 ml # Voids 2 Laboratory Tests 09/21/18 05:50: White Blood Count 10.1, Red Blood Count 3.45L, Hemoglobin 10.5L, Hematocrit 32.7L, Mean Corpuscular Volume 95, Mean Corpuscular Hemoglobin 30.4, Mean Corpuscular Hemoglobin Concent 32.1, Red Cell Distribution Width 14.5, Platelet Count 173, Mean Platelet Volume 6.9, Neutrophils (%) (Auto) 78.9H, Lymphocytes ( %) (Auto) 14.3L, Monocytes (%) (Auto) 6.2, Eosinophils (%) (Auto) 0.3, Basophils (%) (Auto) 0.3, Sodium Level 143, Potassium Level 5.0, Chloride Level 109H, Carbon Dioxide Level 28, Anion Gap 6, Blood Urea Nitrogen 84H, Creatinine 1.5H, Estimat Glomerular Filtration Rate , Glucose Level 98, Calcium Level 10.1 Current Medications Medications (Trade) Dose Ordered Sig/Reagan Route PRN Reason Start Time Stop Time Status Last Admin Dose Admin Acetaminophen (Tylenol) 650 mg Q4H PRN GT Mild Pain/Temp > 100.5 09/19/18 16:30 10/09/18 16:29 Artificial Tears (Akwa-Tears) 1 drop EVERY 12 HOURS BOTH EYES 09/19/18 21:00 10/15/18 20:59 09/21/18 09:11 Atorvastatin Calcium (Lipitor) 10 mg BEDTIME GT 09/19/18 21:00 10/04/18 20:59 09/20/18 21:33 Dextrose (Dextrose 50%) 25 ml Q30M PRN IV Hypoglycemia 09/19/18 16:30 10/03/18 21:29 Dextrose (Dextrose 50%) 50 ml Q30M PRN IV Hypoglycemia 09/19/18 16:30 10/03/18 21:29 Docusate Sodium (Colace) 100 mg BID GT 09/19/18 18:00 10/04/18 08:59 09/21/18 09:11 Donepezil HCl (Aricept) 10 mg BEDTIME GT 09/19/18 21:00 10/04/18 20:59 09/20/18 21:32 Heparin Sodium (Porcine) (Heparin 5000 units/ml) 5,000 units EVERY 12 HOURS SUBQ 09/19/18 21:00 10/04/18 08:59 09/21/18 09:12 Hydralazine HCl (Apresoline) 25 mg Q6H PRN GT For High Blood Pressure 09/19/18 16:30 10/09/18 16:29 Insulin Aspart (NovoLOG) EVERY 6 HOURS SUBQ 09/19/18 18:00 10/10/18 06:29 09/21/18 12:07 Insulin Detemir (Levemir) 5 units DAILY SUBQ 09/20/18 09:00 10/04/18 08:59 09/21/18 09:13 Lactulose (Cephulac) 10 gm THREE TIMES A DAY GT 09/19/18 18:00 10/08/18 12:59 09/21/18 12:06 Losartan Potassium (Cozaar) 100 mg DAILY GT 09/20/18 09:00 10/04/18 08:59 09/21/18 09:11 Metoclopramide HCl (Reglan) 5 mg Q8H PRN IVP Nausea & Vomiting 09/19/18 17:00 10/10/18 08:59 Mineral Oil (Mineral Oil) 30 ml DAILYPRN PRN GT Constipation 09/19/18 16:30 10/09/18 16:29 Polyethylene Glycol (Miralax) 17 gm BEDTIME GT 09/19/18 21:00 10/06/18 20:59 09/20/18 21:33 Sitagliptin Phosphate (Januvia) 100 mg DAILY GT 09/20/18 09:00 10/04/18 08:59 09/21/18 09:10 Vitamin D (Vitamin D) 1,000 intlu TWICE A DAY GT 09/19/18 18:00 10/04/18 08:59 09/21/18 09:10 Zinc Oxide (Desitin) 1 applic EVERY 8 HOURS TOPIC 09/19/18 22:00 10/08/18 10:29 09/21/18 13:24 Marcellus Castillo MD Sep 21, 2018 16:22
--- NOTE | 2018-09-21 16:33 | Hematology/Onc Progress Note ---
Assessment/Plan Assessment/Plan Assessment and Recs # Liver mass - large heterogeneous mass in the right lobe of the liver suspicious for malignant neoplasm --> imaging has been reviewed and c/w likely malignancy --> as per Gi recs, defer tumor biopsy, has been present prior admission --> treatment once have results of primary --> imaging as needed r/o ascites --> tumor markers reviewed are wnl # Anemia of chronic disease due to underlying chronic medical issues, multifactorial --> Anemia workup has been ordered, rule out gi bleed, ferritin is 118 --> No evidence of hemolysis is noted, peripheral smear has been reviewed. --> Hgb goal >7. Transfuse prn. --> Epogen or iron at this time is not particularly indicated --> Medications have been reviewed --> improved trend 10-->11-->12-->11.8-->11.5-->11.4-->11.4-->10.5 # Hypercalcemia - on admission elev, due to likely dehydration --> Ca has improved, on ivf --> on IVF also for hypernatremia --> per renal recs # Fecal impaction/constipation --> on colace, senna as per gi # Abdominal distension --> improved mildly, per gi # DVT ppx with heparin sq The timing of this note does not necessarily reflect the time of the patient was seen. GREATLY APPRECIATE CONSULTATION. Subjective Hematologic/Lymphatic: Reports: anemia Allergies: Coded Allergies: No Known Allergies (Verified , 06/07/08) Subjective 09/10: no bleeding, no night sweats, no events otherwise, labs pending 09/11: liver biopsy cancelled, no events, tumor markers neg 09/12: no events, no bleeding, h/h reviewed, no f/c 09/13: patient being turned every 2 hrs, seen by gi 09/14: no events, still with abd pain, imaging per gi 09/16: arousable, nonverbal, no events reported 09/17: 5.5L of fluid removed via para, no events otherwise, no f/c 09/18: seen by pulm, gi, no events, wbc is 11.3 09/19: no f/c, no events reported, on heparin sq dvt ppx 09/20: resting in bed, no acute events labs reviewed. 09/21: nonverbal, no acute events, labs reviewed Objective Objective Current Medications Medications (Trade) Dose Ordered Sig/Reagan Route PRN Reason Start Time Stop Time Status Last Admin Dose Admin Acetaminophen (Tylenol) 650 mg Q4H PRN GT Mild Pain/Temp > 100.5 09/19/18 16:30 10/09/18 16:29 Artificial Tears (Akwa-Tears) 1 drop EVERY 12 HOURS BOTH EYES 09/19/18 21:00 10/15/18 20:59 09/21/18 09:11 Atorvastatin Calcium (Lipitor) 10 mg BEDTIME GT 09/19/18 21:00 10/04/18 20:59 09/20/18 21:33 Dextrose (Dextrose 50%) 25 ml Q30M PRN IV Hypoglycemia 09/19/18 16:30 10/03/18 21:29 Dextrose (Dextrose 50%) 50 ml Q30M PRN IV Hypoglycemia 09/19/18 16:30 10/03/18 21:29 Docusate Sodium (Colace) 100 mg BID GT 09/19/18 18:00 10/04/18 08:59 09/21/18 09:11 Donepezil HCl (Aricept) 10 mg BEDTIME GT 09/19/18 21:00 10/04/18 20:59 09/20/18 21:32 Heparin Sodium (Porcine) (Heparin 5000 units/ml) 5,000 units EVERY 12 HOURS SUBQ 09/19/18 21:00 10/04/18 08:59 09/21/18 09:12 Hydralazine HCl (Apresoline) 25 mg Q6H PRN GT For High Blood Pressure 09/19/18 16:30 10/09/18 16:29 Insulin Aspart (NovoLOG) EVERY 6 HOURS SUBQ 09/19/18 18:00 10/10/18 06:29 09/21/18 12:07 Insulin Detemir (Levemir) 5 units DAILY SUBQ 09/20/18 09:00 10/04/18 08:59 09/21/18 09:13 Lactulose (Cephulac) 10 gm THREE TIMES A DAY GT 09/19/18 18:00 10/08/18 12:59 09/21/18 12:06 Losartan Potassium (Cozaar) 100 mg DAILY GT 09/20/18 09:00 10/04/18 08:59 09/21/18 09:11 Metoclopramide HCl (Reglan) 5 mg Q8H PRN IVP Nausea & Vomiting 09/19/18 17:00 10/10/18 08:59 Mineral Oil (Mineral Oil) 30 ml DAILYPRN PRN GT Constipation 09/19/18 16:30 10/09/18 16:29 Polyethylene Glycol (Miralax) 17 gm BEDTIME GT 09/19/18 21:00 10/06/18 20:59 09/20/18 21:33 Sitagliptin Phosphate (Januvia) 100 mg DAILY GT 09/20/18 09:00 10/04/18 08:59 09/21/18 09:10 Vitamin D (Vitamin D) 1,000 intlu TWICE A DAY GT 09/19/18 18:00 10/04/18 08:59 09/21/18 09:10 Zinc Oxide (Desitin) 1 applic EVERY 8 HOURS TOPIC 09/19/18 22:00 10/08/18 10:29 09/21/18 13:24 Last 24 Hour Vital Signs Date Time Temp Pulse Resp B/P (MAP) Pulse Ox O2 Delivery O2 Flow Rate FiO2 09/21/18 12:00 97.4 96 20 108/56 (73) 96 09/21/18 09:11 111/50 09/21/18 09:00 Nasal Cannula 2.0 09/21/18 08:30 95 Nasal Cannula 2.0 28 09/21/18 08:00 97.4 105 20 111/50 (70) 94 09/21/18 04:00 97.4 98 21 98/57 (71) 96 09/21/18 00:09 97.7 99 21 115/48 (70) 96 09/20/18 21:00 Nasal Cannula 2.0 09/20/18 21:00 95 Nasal Cannula 2.0 28 09/20/18 20:08 97.7 64 21 92/58 (69) 95 09/20/18 18:56 104 20 110/58 (75) 94 09/20/18 16:00 97.9 93 20 106/42 (63) 94 09/20/18 12:00 97.2 91 20 106/48 (67) 96 09/20/18 10:13 123/59 09/20/18 10:02 95 123/59 (80) 09/20/18 09:00 Nasal Cannula 2.0 09/20/18 08:58 96 Nasal Cannula 2.0 28 09/20/18 08:00 96.0 102 20 119/42 (67) 94 09/20/18 04:00 97.1 80 16 115/49 (71) 96 09/20/18 00:14 97.3 85 18 132/59 (83) 96 09/19/18 20:48 95 Nasal Cannula 2.0 28 09/19/18 20:18 97.9 93 20 114/45 (68) 94 09/19/18 20:08 Nasal Cannula 2.0 09/19/18 17:29 98.1 89 20 119/54 (75) 98 09/19/18 17:00 98.2 83 18 122/45 (70) 96 Intake and Output 09/20/18 09/21/18 19:00 07:00 Intake Total 540 ml 690 ml Output Total 350 ml Balance 190 ml 690 ml Intake Free Water 150 ml Tube Feeding 540 ml 540 ml Output Urine Total 350 ml # Voids 2 Labs Test 09/19/18 03:25 09/20/18 05:40 09/21/18 05:50 White Blood Count 9.8 K/UL (4.8-10.8) 10.3 K/UL (4.8-10.8) 10.1 K/UL (4.8-10.8) Red Blood Count 3.69 M/UL (4.70-6.10) 3.74 M/UL (4.70-6.10) 3.45 M/UL (4.70-6.10) Hemoglobin 11.4 G/DL (14.2-18.0) 11.4 G/DL (14.2-18.0) 10.5 G/DL (14.2-18.0) Hematocrit 34.9 % (42.0-52.0) 35.6 % (42.0-52.0) 32.7 % (42.0-52.0) Mean Corpuscular Volume 95 FL (80-99) 95 FL (80-99) 95 FL (80-99) Mean Corpuscular Hemoglobin 31.0 PG (27.0-31.0) 30.5 PG (27.0-31.0) 30.4 PG (27.0-31.0) Mean Corpuscular Hemoglobin Concent 32.8 G/DL (32.0-36.0) 31.9 G/DL (32.0-36.0) 32.1 G/DL (32.0-36.0) Red Cell Distribution Width 14.1 % (11.6-14.8) 14.2 % (11.6-14.8) 14.5 % (11.6-14.8) Platelet Count 146 K/UL (150-450) 150 K/UL (150-450) 173 K/UL (150-450) Mean Platelet Volume 7.3 FL (6.5-10.1) 7.4 FL (6.5-10.1) 6.9 FL (6.5-10.1) Neutrophils (%) (Auto) 79.6 % (45.0-75.0) 80.6 % (45.0-75.0) 78.9 % (45.0-75.0) Lymphocytes (%) (Auto) 11.1 % (20.0-45.0) 12.6 % (20.0-45.0) 14.3 % (20.0-45.0) Monocytes (%) (Auto) 8.8 % (1.0-10.0) 6.3 % (1.0-10.0) 6.2 % (1.0-10.0) Eosinophils (%) (Auto) 0.1 % (0.0-3.0) 0.2 % (0.0-3.0) 0.3 % (0.0-3.0) Basophils (%) (Auto) 0.4 % (0.0-2.0) 0.3 % (0.0-2.0) 0.3 % (0.0-2.0) Sodium Level 138 MMOL/L (136-145) 140 MMOL/L (136-145) 143 MMOL/L (136-145) Potassium Level 5.0 MMOL/L (3.5-5.1) 5.5 MMOL/L (3.5-5.1) 5.0 MMOL/L (3.5-5.1) Chloride Level 105 MMOL/L (98-107) 107 MMOL/L (98-107) 109 MMOL/L (98-107) Carbon Dioxide Level 25 MMOL/L (21-32) 27 MMOL/L (21-32) 28 MMOL/L (21-32) Anion Gap 8 mmol/L (5-15) 6 mmol/L (5-15) 6 mmol/L (5-15) Blood Urea Nitrogen 64 mg/dL (7-18) 77 mg/dL (7-18) 84 mg/dL (7-18) Creatinine 1.6 MG/DL (0.55-1.30) 1.7 MG/DL (0.55-1.30) 1.5 MG/DL (0.55-1.30) Estimat Glomerular Filtration Rate mL/min (>60) mL/min (>60) mL/min (>60) Glucose Level 195 MG/DL (74-106) 141 MG/DL (74-106) 98 MG/DL (74-106) Calcium Level 9.5 MG/DL (8.5-10.1) 10.0 MG/DL (8.5-10.1) 10.1 MG/DL (8.5-10.1) Phosphorus Level 3.0 MG/DL (2.5-4.9) Magnesium Level 2.0 MG/DL (1.8-2.4) Hepatitis A IgM Antibody Negative (Negative) Hepatitis B Surface Antigen Negative (Negative) Hepatitis B Core IgM Antibody Negative (Negative) Hepatitis C Antibody 0.2 s/co ratio (0.0-0.9) HIV (1&2) Antibody Rapid Negative (NEGATIVE) Height (Feet): 5 Height (Inches): 8.00 Weight (Pounds): 173 Objective Gen: well appearing, no apparent distress, alert Head: normocephalic EENT: PERRL/EOMI, normal ENT inspection Pulm: normal breath sounds, no respiratory distress. NC+ CV: rrr. no mgr GI: normal inspection, non tender, soft, normal bowel sounds, non-distended ++ gtube Rectal: deferred Gu: johnston++ Musculoskeletal: normal inspection, back normal Neurologic: normal inspection, alert, oriented x3, responsive Psychiatric: normal inspection, judgement/insight normal, memory normal Skin: normal inspection, normal color, no rash, warm/dry, palpation normal, well hydrated Fadi Vicente MD Sep 21, 2018 16:33
--- NOTE | 2018-09-21 19:39 | NUR ---
HAND-OFF: Report given to ISMAEL Ellis.
--- NOTE | 2018-09-21 19:42 | NUR ---
NURSE NOTES: Received report from ISMAEL Danielson. Patient is in bed, alert x1, nonverbal. Left forearm IV intact. Schmid catheter is intact and draining urine. Gtube is intact with glucerna 1.5 running at 45cc. Nasal cannula is on at 2L. No sign of SOB or distress. Bed locked and in lowest position. Call light in reach. Bed alarm on. Will continue to monitor the patient.
[2018-09-21] MEDS: Albuterol/Ipratropium 3ml neb HHN SCH (19:52)
[2018-09-21 20:00] VITALS: BP 98/44
[2018-09-21] MEDS: Donepezil 10mg tab GT SCH (21:24)
[2018-09-21] MEDS: Miralax 17gm pkt GT SCH (21:25)
[2018-09-22] VITALS: BP 103/47
[2018-09-22] MEDS: Albuterol/Ipratropium 3ml neb HHN SCH ×7 (00:11→23:26)
[2018-09-22] MEDS: NovoLOG Insulin Flexpen SUBQ SCH ×4 (00:26→17:52)
[2018-09-22 04:00] VITALS: BP 109/73
[2018-09-22] MEDS: Desitin Rash Paste TOPIC SCH ×3 (06:18→21:59)
--- NOTE | 2018-09-22 07:28 | NUR ---
HAND-OFF: Report given to ISMAEL Danielson.
--- NOTE | 2018-09-22 07:28 | NUR ---
NURSE NOTES: Patient alert x1, non verbal; on nasal cannula 2 Liter, no sign of distress and shortness of breath; will provided suction as needed; no sing of chest pain; IV LFA 22G, flushes well; Schmid in place, drains well; Glucerna 1.5 running @45cc, no residual; Head of the bed elevated, side rails up x3, breaks engaged, bed alarm on, bed at lowest position; will check blood sugar as scheduled; will keep monitoring.
[2018-09-22 08:00] VITALS: BP 105/75
[2018-09-22] MEDS: Lactulose 10gm/15ml UDC GT SCH ×3 (08:51→17:52)
[2018-09-22] MEDS: Docusate 100mg/10ml Liq GT SCH ×2 (08:51→17:52)
[2018-09-22] MEDS: Vitamin D 1000 IU Tab GT SCH ×2 (08:51→17:52)
[2018-09-22] MEDS: Losartan 50mg tab GT SCH (08:51)
[2018-09-22] MEDS: Artificial Tears 1.4% Op Soln BOTH EYES SCH ×2 (08:52→21:59)
[2018-09-22] MEDS: Heparin 5000 units/ml inj SUBQ SCH ×2 (08:53→22:21)
[2018-09-22] MEDS: Levemir Flexpen SUBQ SCH (08:54)
--- NOTE | 2018-09-22 10:39 | Pulmonology Progress Note ---
Assessment/Plan Assessment/Plan Pulmonary Progress Note Assessment/Plan Problem List: (1) Atrial fibrillation and flutter ICD Codes: I48.91 - Unspecified atrial fibrillation; I48.92 - Unspecified atrial flutter SNOMED: 579559005 (2) CHF (congestive heart failure) ICD Codes: I50.9 - Heart failure, unspecified SNOMED: 75274277 (3) Pancreatitis ICD Codes: K85.90 - Acute pancreatitis without necrosis or infection, unspecified SNOMED: 11749788 (4) CVA (cerebral vascular accident) ICD Codes: I63.9 - CVA (cerebral vascular accident) SNOMED: 822588586 (5) Abdominal distension ICD Codes: R14.0 - Abdominal distension (gaseous) SNOMED: 87016520 (6) Umbilical hernia ICD Codes: K42.9 - Umbilical hernia without obstruction or gangrene SNOMED: 019482344 Qualifiers: Qualified Codes: K42.9 - Umbilical hernia without obstruction or gangrene Assessment/Plan: Liver mass - large heterogeneous mass in the right lobe of the liver suspicious for malignant neoplasm abdominal distention improving, GI/Heme following, K improved PLAN care as is await gi regarding feeds general surgery to follow monitor for change impression, plan, and exam edited and reviewed in detail care discussed with RN Subjective ROS Limited/Unobtainable: Yes Allergies: Coded Allergies: No Known Allergies (Verified , 06/07/08) Subjective abdmen distende gi and gs called to followup Objective Vital Signs Noted Height (Feet): 5 Height (Inches): 8.00 Weight (Pounds): 160 Objective WDWN NAD clear breath sounds bilaterally without rhonchi or wheeze [id number] without MRG NABS noted distention GT in place no CCE nonfocal confused Subjective ROS Limited/Unobtainable: No Allergies: Coded Allergies: No Known Allergies (Verified , 06/07/08) Objective Last 24 Hour Vital Signs Date Time Temp Pulse Resp B/P (MAP) Pulse Ox O2 Delivery O2 Flow Rate FiO2 09/22/18 09:00 Nasal Cannula 2.0 09/22/18 08:51 105/75 09/22/18 08:00 98.4 104 19 105/75 (85) 98 09/22/18 07:26 75 20 99 Nasal Cannula 2.0 28 09/22/18 07:15 28 09/22/18 07:14 98 Nasal Cannula 2.0 28 09/22/18 07:13 72 18 98 Nasal Cannula 2.0 28 09/22/18 04:00 97.0 97 20 109/73 (85) 100 09/22/18 02:40 81 20 99 Nasal Cannula 2.0 28 09/22/18 02:40 28 09/22/18 02:32 70 20 97 Nasal Cannula 2.0 28 09/22/18 00:19 85 20 100 Nasal Cannula 2.0 28 09/22/18 00:19 28 09/22/18 00:11 78 20 98 Nasal Cannula 2.0 28 09/22/18 00:00 97.1 87 18 103/47 (65) 97 09/21/18 21:00 Nasal Cannula 2.0 09/21/18 20:00 97.3 96 18 98/44 (62) 95 09/21/18 20:00 28 09/21/18 20:00 78 20 99 Nasal Cannula 2.0 09/21/18 19:55 72 20 98 Nasal Cannula 2.0 09/21/18 19:54 98 Nasal Cannula 2.0 09/21/18 19:52 72 20 98 Nasal Cannula 2.0 28 09/21/18 16:00 98.0 98 18 125/86 (99) 95 09/21/18 12:00 97.4 96 20 108/56 (73) 96 Intake and Output 09/21/18 09/22/18 18:59 06:59 Intake Total 840 ml 885 ml Balance 840 ml 885 ml Intake Free Water 300 ml 300 ml Tube Feeding 540 ml 585 ml Current Medications Medications (Trade) Dose Ordered Sig/Reagan Route PRN Reason Start Time Stop Time Status Last Admin Dose Admin Acetaminophen (Tylenol) 650 mg Q4H PRN GT Mild Pain/Temp > 100.5 09/19/18 16:30 10/09/18 16:29 Albuterol/ Ipratropium (Albuterol/ Ipratropium) 3 ml Q4HRT HHN 09/21/18 19:00 09/26/18 18:59 09/22/18 07:12 Artificial Tears (Akwa-Tears) 1 drop EVERY 12 HOURS BOTH EYES 09/19/18 21:00 10/15/18 20:59 09/22/18 08:52 Atorvastatin Calcium (Lipitor) 10 mg BEDTIME GT 09/19/18 21:00 10/04/18 20:59 09/21/18 21:25 Dextrose (Dextrose 50%) 25 ml Q30M PRN IV Hypoglycemia 09/19/18 16:30 10/03/18 21:29 Dextrose (Dextrose 50%) 50 ml Q30M PRN IV Hypoglycemia 09/19/18 16:30 10/03/18 21:29 Docusate Sodium (Colace) 100 mg BID GT 09/19/18 18:00 10/04/18 08:59 09/22/18 08:51 Donepezil HCl (Aricept) 10 mg BEDTIME GT 09/19/18 21:00 10/04/18 20:59 09/21/18 21:24 Heparin Sodium (Porcine) (Heparin 5000 units/ml) 5,000 units EVERY 12 HOURS SUBQ 09/19/18 21:00 10/04/18 08:59 09/22/18 08:53 Hydralazine HCl (Apresoline) 25 mg Q6H PRN GT For High Blood Pressure 09/19/18 16:30 10/09/18 16:29 Insulin Aspart (NovoLOG) EVERY 6 HOURS SUBQ 09/19/18 18:00 10/10/18 06:29 09/22/18 06:21 Insulin Detemir (Levemir) 5 units DAILY SUBQ 09/20/18 09:00 10/04/18 08:59 09/22/18 08:54 Lactulose (Cephulac) 10 gm THREE TIMES A DAY GT 09/19/18 18:00 10/08/18 12:59 09/22/18 08:51 Losartan Potassium (Cozaar) 100 mg DAILY GT 09/20/18 09:00 10/04/18 08:59 09/22/18 08:51 Metoclopramide HCl (Reglan) 5 mg Q8H PRN IVP Nausea & Vomiting 09/19/18 17:00 10/10/18 08:59 Mineral Oil (Mineral Oil) 30 ml DAILYPRN PRN GT Constipation 09/19/18 16:30 10/09/18 16:29 Polyethylene Glycol (Miralax) 17 gm BEDTIME GT 09/19/18 21:00 10/06/18 20:59 09/21/18 21:25 Sitagliptin Phosphate (Januvia) 100 mg DAILY GT 09/20/18 09:00 10/04/18 08:59 09/22/18 08:51 Vitamin D (Vitamin D) 1,000 intlu TWICE A DAY GT 09/19/18 18:00 10/04/18 08:59 09/22/18 08:51 Zinc Oxide (Desitin) 1 applic EVERY 8 HOURS TOPIC 09/19/18 22:00 10/08/18 10:29 09/22/18 06:18 Marcellus Castillo MD Sep 22, 2018 10:39
[2018-09-22 12:00] VITALS: BP 115/50
--- NOTE | 2018-09-22 14:15 | Hematology/Onc Progress Note ---
Assessment/Plan Assessment/Plan Assessment and Recs # Liver mass - large heterogeneous mass in the right lobe of the liver suspicious for malignant neoplasm --> imaging has been reviewed and c/w likely malignancy --> as per Gi recs, defer tumor biopsy, has been present prior admission --> treatment once have results of primary --> imaging as needed r/o ascites --> tumor markers reviewed are wnl # Anemia of chronic disease due to underlying chronic medical issues, multifactorial --> Anemia workup has been ordered, rule out gi bleed, ferritin is 118 --> No evidence of hemolysis is noted, peripheral smear has been reviewed. --> Hgb goal >7. Transfuse prn. --> Epogen or iron at this time is not particularly indicated --> Medications have been reviewed --> improved trend 10-->11-->12-->11.8-->11.5-->11.4-->11.4-->10.5 # Hypercalcemia - on admission elev, due to likely dehydration --> Ca has improved, on ivf --> on IVF also for hypernatremia --> per renal recs # Fecal impaction/constipation --> on colace, senna as per gi # Abdominal distension --> improved mildly, per gi # DVT ppx with heparin sq The timing of this note does not necessarily reflect the time of the patient was seen. GREATLY APPRECIATE CONSULTATION. Subjective Gastrointestinal/Abdominal: Reports: abdomen distended Allergies: Coded Allergies: No Known Allergies (Verified , 06/07/08) All Systems: reviewed and negative except above Subjective 09/10: no bleeding, no night sweats, no events otherwise, labs pending 09/11: liver biopsy cancelled, no events, tumor markers neg 09/12: no events, no bleeding, h/h reviewed, no f/c 09/13: patient being turned every 2 hrs, seen by gi 09/14: no events, still with abd pain, imaging per gi 09/16: arousable, nonverbal, no events reported 09/17: 5.5L of fluid removed via para, no events otherwise, no f/c 09/18: seen by pulm, gi, no events, wbc is 11.3 09/19: no f/c, no events reported, on heparin sq dvt ppx 09/20: resting in bed, no acute events labs reviewed. 09/21: nonverbal, no acute events, labs reviewed 09/22: non verbal; on nc 2 L, no sign of distress and shortness of breath, cbc for tomorrow morning Objective Objective Current Medications Medications (Trade) Dose Ordered Sig/Reagan Route PRN Reason Start Time Stop Time Status Last Admin Dose Admin Acetaminophen (Tylenol) 650 mg Q4H PRN GT Mild Pain/Temp > 100.5 09/19/18 16:30 10/09/18 16:29 Albuterol/ Ipratropium (Albuterol/ Ipratropium) 3 ml Q4HRT HHN 09/21/18 19:00 09/26/18 18:59 09/22/18 11:17 Artificial Tears (Akwa-Tears) 1 drop EVERY 12 HOURS BOTH EYES 09/19/18 21:00 10/15/18 20:59 09/22/18 08:52 Atorvastatin Calcium (Lipitor) 10 mg BEDTIME GT 09/19/18 21:00 10/04/18 20:59 09/21/18 21:25 Dextrose (Dextrose 50%) 25 ml Q30M PRN IV Hypoglycemia 09/19/18 16:30 10/03/18 21:29 Dextrose (Dextrose 50%) 50 ml Q30M PRN IV Hypoglycemia 09/19/18 16:30 10/03/18 21:29 Docusate Sodium (Colace) 100 mg BID GT 09/19/18 18:00 10/04/18 08:59 09/22/18 08:51 Donepezil HCl (Aricept) 10 mg BEDTIME GT 09/19/18 21:00 10/04/18 20:59 09/21/18 21:24 Heparin Sodium (Porcine) (Heparin 5000 units/ml) 5,000 units EVERY 12 HOURS SUBQ 09/19/18 21:00 10/04/18 08:59 09/22/18 08:53 Hydralazine HCl (Apresoline) 25 mg Q6H PRN GT For High Blood Pressure 09/19/18 16:30 10/09/18 16:29 Insulin Aspart (NovoLOG) EVERY 6 HOURS SUBQ 09/19/18 18:00 10/10/18 06:29 09/22/18 12:30 Insulin Detemir (Levemir) 5 units DAILY SUBQ 09/20/18 09:00 10/04/18 08:59 09/22/18 08:54 Lactulose (Cephulac) 10 gm THREE TIMES A DAY GT 09/19/18 18:00 10/08/18 12:59 09/22/18 12:28 Losartan Potassium (Cozaar) 100 mg DAILY GT 09/20/18 09:00 10/04/18 08:59 09/22/18 08:51 Metoclopramide HCl (Reglan) 5 mg Q8H PRN IVP Nausea & Vomiting 09/19/18 17:00 10/10/18 08:59 Mineral Oil (Mineral Oil) 30 ml DAILYPRN PRN GT Constipation 09/19/18 16:30 10/09/18 16:29 Polyethylene Glycol (Miralax) 17 gm BEDTIME GT 09/19/18 21:00 10/06/18 20:59 09/21/18 21:25 Sitagliptin Phosphate (Januvia) 100 mg DAILY GT 09/20/18 09:00 10/04/18 08:59 09/22/18 08:51 Vitamin D (Vitamin D) 1,000 intlu TWICE A DAY GT 09/19/18 18:00 10/04/18 08:59 09/22/18 08:51 Zinc Oxide (Desitin) 1 applic EVERY 8 HOURS TOPIC 09/19/18 22:00 10/08/18 10:29 09/22/18 06:18 Last 24 Hour Vital Signs Date Time Temp Pulse Resp B/P (MAP) Pulse Ox O2 Delivery O2 Flow Rate FiO2 09/22/18 12:00 97.6 115 19 115/50 (71) 100 09/22/18 11:27 70 20 93 Nasal Cannula 2.0 28 09/22/18 11:23 28 09/22/18 11:17 67 18 87 Nasal Cannula 2.0 28 09/22/18 09:00 Nasal Cannula 2.0 09/22/18 08:51 105/75 09/22/18 08:00 98.4 104 19 105/75 (85) 98 09/22/18 07:26 75 20 99 Nasal Cannula 2.0 28 09/22/18 07:15 28 09/22/18 07:14 98 Nasal Cannula 2.0 28 09/22/18 07:13 72 18 98 Nasal Cannula 2.0 28 09/22/18 04:00 97.0 97 20 109/73 (85) 100 09/22/18 02:40 81 20 99 Nasal Cannula 2.0 28 09/22/18 02:40 28 09/22/18 02:32 70 20 97 Nasal Cannula 2.0 28 09/22/18 00:19 85 20 100 Nasal Cannula 2.0 28 09/22/18 00:19 28 09/22/18 00:11 78 20 98 Nasal Cannula 2.0 28 09/22/18 00:00 97.1 87 18 103/47 (65) 97 09/21/18 21:00 Nasal Cannula 2.0 09/21/18 20:00 97.3 96 18 98/44 (62) 95 09/21/18 20:00 28 09/21/18 20:00 78 20 99 Nasal Cannula 2.0 28 09/21/18 19:55 72 20 98 Nasal Cannula 2.0 28 09/21/18 19:54 98 Nasal Cannula 2.0 28 09/21/18 19:52 72 20 98 Nasal Cannula 2.0 28 09/21/18 16:00 98.0 98 18 125/86 (99) 95 09/21/18 12:00 97.4 96 20 108/56 (73) 96 09/21/18 09:11 111/50 09/21/18 09:00 Nasal Cannula 2.0 09/21/18 08:30 95 Nasal Cannula 2.0 28 09/21/18 08:00 97.4 105 20 111/50 (70) 94 09/21/18 04:00 97.4 98 21 98/57 (71) 96 09/21/18 00:09 97.7 99 21 115/48 (70) 96 09/20/18 21:00 Nasal Cannula 2.0 09/20/18 21:00 95 Nasal Cannula 2.0 28 09/20/18 20:08 97.7 64 21 92/58 (69) 95 09/20/18 18:56 104 20 110/58 (75) 94 09/20/18 16:00 97.9 93 20 106/42 (63) 94 Intake and Output 09/21/18 09/22/18 19:00 07:00 Intake Total 840 ml 885 ml Balance 840 ml 885 ml Intake Free Water 300 ml 300 ml Tube Feeding 540 ml 585 ml Labs Test 09/20/18 05:40 09/21/18 05:50 White Blood Count 10.3 K/UL (4.8-10.8) 10.1 K/UL (4.8-10.8) Red Blood Count 3.74 M/UL (4.70-6.10) 3.45 M/UL (4.70-6.10) Hemoglobin 11.4 G/DL (14.2-18.0) 10.5 G/DL (14.2-18.0) Hematocrit 35.6 % (42.0-52.0) 32.7 % (42.0-52.0) Mean Corpuscular Volume 95 FL (80-99) 95 FL (80-99) Mean Corpuscular Hemoglobin 30.5 PG (27.0-31.0) 30.4 PG (27.0-31.0) Mean Corpuscular Hemoglobin Concent 31.9 G/DL (32.0-36.0) 32.1 G/DL (32.0-36.0) Red Cell Distribution Width 14.2 % (11.6-14.8) 14.5 % (11.6-14.8) Platelet Count 150 K/UL (150-450) 173 K/UL (150-450) Mean Platelet Volume 7.4 FL (6.5-10.1) 6.9 FL (6.5-10.1) Neutrophils (%) (Auto) 80.6 % (45.0-75.0) 78.9 % (45.0-75.0) Lymphocytes (%) (Auto) 12.6 % (20.0-45.0) 14.3 % (20.0-45.0) Monocytes (%) (Auto) 6.3 % (1.0-10.0) 6.2 % (1.0-10.0) Eosinophils (%) (Auto) 0.2 % (0.0-3.0) 0.3 % (0.0-3.0) Basophils (%) (Auto) 0.3 % (0.0-2.0) 0.3 % (0.0-2.0) Sodium Level 140 MMOL/L (136-145) 143 MMOL/L (136-145) Potassium Level 5.5 MMOL/L (3.5-5.1) 5.0 MMOL/L (3.5-5.1) Chloride Level 107 MMOL/L (98-107) 109 MMOL/L (98-107) Carbon Dioxide Level 27 MMOL/L (21-32) 28 MMOL/L (21-32) Anion Gap 6 mmol/L (5-15) 6 mmol/L (5-15) Blood Urea Nitrogen 77 mg/dL (7-18) 84 mg/dL (7-18) Creatinine 1.7 MG/DL (0.55-1.30) 1.5 MG/DL (0.55-1.30) Estimat Glomerular Filtration Rate mL/min (>60) mL/min (>60) Glucose Level 141 MG/DL (74-106) 98 MG/DL (74-106) Calcium Level 10.0 MG/DL (8.5-10.1) 10.1 MG/DL (8.5-10.1) Height (Feet): 5 Height (Inches): 8.00 Weight (Pounds): 173 Objective Gen: well appearing, no apparent distress, alert Head: normocephalic EENT: PERRL/EOMI, normal ENT inspection Pulm: normal breath sounds, no respiratory distress. NC+ CV: rrr. no mgr GI: normal inspection, non tender, soft, normal bowel sounds, non-distended ++ gtube Rectal: deferred Gu: johnston++ Musculoskeletal: normal inspection, back normal Neurologic: normal inspection, alert, oriented x3, responsive Psychiatric: normal inspection, judgement/insight normal, memory normal Skin: normal inspection, normal color, no rash, warm/dry, palpation normal, well hydrated Fadi Vicente MD Sep 22, 2018 14:15
--- NOTE | 2018-09-22 15:13 | NUR ---
NURSE NOTES: New Feeding Tube, Glucerna 1.5, changed. No residual.
[2018-09-22 16:00] VITALS: BP 107/50
--- NOTE | 2018-09-22 19:41 | NUR ---
HAND-OFF: Report given to ISMAEL Ellis.
--- NOTE | 2018-09-22 19:46 | NUR ---
NURSE NOTES: Received report from ISMAEL Danielson. Patient is in bed resting, alert x1 and nonverbal. Patient is on nasal cannula 2L with no signs of distress or SOB. Will provide suctioning as needed. Schmid is intact and draining urine. Left forearm IV intact. Gtube is intact and Glucerna 1.5 is running at 45cc. Bed is locked and in lowest position with HOB elevated. Will continue to monitor.
[2018-09-22 20:00] VITALS: BP 98/58
--- NOTE | 2018-09-22 20:08 | Surgery Progress Note ---
Surgery Progress Note Subjective Additional Comments no acute events afebrile HD stable renal function improved abd distended Objective Last 24 Hour Vital Signs Date Time Temp Pulse Resp B/P (MAP) Pulse Ox O2 Delivery O2 Flow Rate FiO2 09/22/18 19:59 86 18 99 Nasal Cannula 2.0 28 09/22/18 19:59 28 09/22/18 19:50 95 Nasal Cannula 2.0 09/22/18 19:48 82 18 95 Nasal Cannula 2.0 09/22/18 16:00 97.2 111 19 107/50 (69) 95 09/22/18 15:29 97 17 100 Nasal Cannula 2.0 09/22/18 15:16 28 09/22/18 15:15 98 18 100 Nasal Cannula 2.0 09/22/18 12:00 97.6 115 19 115/50 (71) 100 09/22/18 11:27 70 20 93 Nasal Cannula 2.0 09/22/18 11:23 28 09/22/18 11:17 67 18 87 Nasal Cannula 2.0 09/22/18 09:00 Nasal Cannula 2.0 09/22/18 08:51 105/75 09/22/18 08:00 98.4 104 19 105/75 (85) 98 09/22/18 07:26 75 20 99 Nasal Cannula 2.0 09/22/18 07:15 28 09/22/18 07:14 98 Nasal Cannula 2.0 09/22/18 07:13 72 18 98 Nasal Cannula 2.0 09/22/18 04:00 97.0 97 20 109/73 (85) 100 09/22/18 02:40 81 20 99 Nasal Cannula 2.0 09/22/18 02:40 28 09/22/18 02:32 70 20 97 Nasal Cannula 2.0 09/22/18 00:19 85 20 100 Nasal Cannula 2.0 09/22/18 00:19 28 09/22/18 00:11 78 20 98 Nasal Cannula 2.0 09/22/18 00:00 97.1 87 18 103/47 (65) 97 09/21/18 21:00 Nasal Cannula 2.0 I&O Intake and Output 09/21/18 09/22/18 19:00 07:00 Intake Total 840 ml 885 ml Balance 840 ml 885 ml Intake Free Water 300 ml 300 ml Tube Feeding 540 ml 585 ml Drains: other Cardiovascular: RSR Respiratory: clear Abdomen: soft, distended, decreased bowel sounds Extremities: no cyanosis Plan Problems: (1) Abdominal distension Assessment & Plan: improved tolerating diet exam benign. okay to d/c from surgical standpoint (2) Malnutrition Assessment & Plan: Evolving DTPI sacrum. Base of wound has 100% soft necrosis ( L)2.5cm x (W)3.2cm with surrounding non-blanchable erythema with induration noted. (L)6.5cm x(W)8cm. Erythema noted to scrotum . Non-blanchable erythema with fluctuance L heel. Non-blanchable erythema without fluctuance R heel. G site erythematous with denuded skin. Surrounding adhesive related skin tears noted to surrounding skin with small amt sanguineous exudate.Area gentlyu cleansed with soap and water .Pat dried. Zinc Oxide paste applied to GT site and surrounding skin damage . 4 x $ drain gauze appied around Gt site without tape. Recommended to primary nurse to avoid taping gauze around Gt . Tx.Plan: Cleanse Sacral wound with Saline. Apply Therahoney. Apply Moisture Barrier Periwound. Cover with Optifoam drsg. Change every 3 days and prn. Apply Moisture Barrier Paste to Bilat groin and scrotum with each incontinence care. Gently cleanse GT site with Soap and water. Pat dry. Apply Zinc Oxide paste daily and prn.Place 4x4 gauze around GT. Do Not Tape Gauze. Apply Cavilon Skin Barrier to both heels. Cover each heel with Optifoam drsg. Change every 7 days and prn. APM/WIL Mattress. Reposition at least every 2hours or as tolerated. Off-load heels with pillow. Jesse Cash Sep 22, 2018 20:08
[2018-09-22] MEDS: Miralax 17gm pkt GT SCH (21:59)
[2018-09-22] MEDS: Donepezil 10mg tab GT SCH (21:59)
[2018-09-23] VITALS (8 sets, daily range): BP systolic 104–133; BP diastolic 43–63
[2018-09-23] MEDS: NovoLOG Insulin Flexpen SUBQ SCH ×4 (00:40→18:58)
[2018-09-23] MEDS: Albuterol/Ipratropium 3ml neb HHN SCH ×6 (03:39→22:36)
[2018-09-23] MEDS: Desitin Rash Paste TOPIC SCH ×3 (06:08→21:38)
[2018-09-23 07:19] LABS: BASOPHILS % (AUTO) 0.2 % (0.0-2.0); EOSINOPHILS % (AUTO) 0.4 % (0.0-3.0); HEMATOCRIT 35.5 % (42.0-52.0); HEMOGLOBIN 11.1 G/DL (14.2-18.0); LYMPHOCYTES % (AUTO) 10.5 % (20.0-45.0); MEAN CORPUSCULAR VOLUME 97 FL (80-99); MONOCYTES % (AUTO) 5.4 % (1.0-10.0); NEUTROPHILS % (AUTO) 83.4 % (45.0-75.0); PLATELET COUNT 205 K/UL (150-450); RED BLOOD COUNT 3.67 M/UL (4.70-6.10); RED CELL DISTRIBUTION WIDTH 14.9 % (11.6-14.8); WHITE BLOOD COUNT 10.1 K/UL (4.8-10.8)
[2018-09-23 07:24] LABS: ANION GAP -5 mmol/L (5-15); BLOOD UREA NITROGEN 88 mg/dL (7-18); CALCIUM 9.9 MG/DL (8.5-10.1); CARBON DIOXIDE 30 MMOL/L (21-32); CHLORIDE 110 MMOL/L (98-107); CREATININE 1.7 MG/DL (0.55-1.30); POTASSIUM 5.3 MMOL/L (3.5-5.1); SODIUM 135 MMOL/L (136-145)
--- NOTE | 2018-09-23 07:51 | NUR ---
HAND-OFF: Report given to ISMAEL Collazo.
--- NOTE | 2018-09-23 07:52 | NUR ---
NURSE NOTES: received pt in bed, on semi-Jeffery's, on NC receiving 2L O2/min. Pt is awake, no sign of respiratory distress noted. On low airloss mattress. Pt receives care from RT at this time. No sign of pain or discomfort. IV access LFA in place. GT feeding Glucerna 1.5 being administered through GT at 45cc/hr. Bed locked at the lowest position possible, call light within easy reach, siderails up x3. Will continue to monitor pt and follow up with the plan of care.
--- NOTE | 2018-09-23 08:26 | General Progress Note ---
Assessment/Plan Problem List: (1) Atrial fibrillation and flutter ICD Codes: I48.91 - Unspecified atrial fibrillation; I48.92 - Unspecified atrial flutter SNOMED: 499416146 (2) CHF (congestive heart failure) ICD Codes: I50.9 - Heart failure, unspecified SNOMED: 37590984 (3) Pancreatitis ICD Codes: K85.90 - Acute pancreatitis without necrosis or infection, unspecified SNOMED: 60844707 (4) CVA (cerebral vascular accident) ICD Codes: I63.9 - CVA (cerebral vascular accident) SNOMED: 332923195 (5) Abdominal distension ICD Codes: R14.0 - Abdominal distension (gaseous) SNOMED: 72508369 (6) Umbilical hernia ICD Codes: K42.9 - Umbilical hernia without obstruction or gangrene SNOMED: 995739238 Qualifiers: Qualified Codes: K42.9 - Umbilical hernia without obstruction or gangrene Status: stable Assessment/Plan: liver mass abdominal distention episodic hypertension and tachycardia abdominal distention, slightly improved urinary retention ascites s/p tap fever acute on chronic renal failure PLAN CXR with edema avoid nephrotoxic agents maintain feeds as able general surgery reviewed and noted monitor for change and recommend liver masses previously - defer biopsy and discuss; patient too ill monitor TF and resume when able urology noted- johnston in place; monitor UO- some residual with johnston not yet stable for snf; will update family ? hepatorenal syndrome impression, plan, and exam edited and reviewed in detail care discussed with RN Subjective ROS Limited/Unobtainable: Yes Allergies: Coded Allergies: No Known Allergies (Verified , 06/07/08) Subjective renal function worse s/p tap and stable care noted and reviewed d/w renal Objective Last 24 Hour Vital Signs Date Time Temp Pulse Resp B/P (MAP) Pulse Ox O2 Delivery O2 Flow Rate FiO2 09/23/18 07:56 111 20 99 Nasal Cannula 2.0 09/23/18 07:42 115 20 97 Nasal Cannula 2.0 09/23/18 07:41 97 Nasal Cannula 2.0 09/23/18 04:00 98.5 120 20 113/55 (74) 95 09/23/18 03:50 28 09/23/18 03:50 96 18 99 Nasal Cannula 2.0 28 09/23/18 03:39 94 18 97 Nasal Cannula 2.0 09/23/18 00:00 98.6 116 21 123/55 (77) 95 09/22/18 23:33 28 09/22/18 23:33 98 18 100 Nasal Cannula 2.0 28 09/22/18 23:26 96 18 97 Nasal Cannula 2.0 09/22/18 21:00 Nasal Cannula 2.0 09/22/18 20:00 98.6 112 20 98/58 (71) 95 09/22/18 19:59 86 18 99 Nasal Cannula 2.0 28 09/22/18 19:59 28 09/22/18 19:50 95 Nasal Cannula 2.0 28 09/22/18 19:48 82 18 95 Nasal Cannula 2.0 28 09/22/18 16:00 97.2 111 19 107/50 (69) 95 09/22/18 15:29 97 17 100 Nasal Cannula 2.0 09/22/18 15:16 28 09/22/18 15:15 98 18 100 Nasal Cannula 2.0 09/22/18 12:00 97.6 115 19 115/50 (71) 100 09/22/18 11:27 70 20 93 Nasal Cannula 2.0 09/22/18 11:23 28 09/22/18 11:17 67 18 87 Nasal Cannula 2.0 09/22/18 09:00 Nasal Cannula 2.0 09/22/18 08:51 105/75 Intake and Output 09/22/18 09/23/18 19:00 07:00 Intake Total 740 ml 740 ml Balance 740 ml 740 ml Intake Free Water 200 ml 200 ml Tube Feeding 540 ml 540 ml Laboratory Tests 09/23/18 07:04: White Blood Count 10.1, Red Blood Count 3.67L, Hemoglobin 11.1L, Hematocrit 35.5L, Mean Corpuscular Volume 97, Mean Corpuscular Hemoglobin 30.3, Mean Corpuscular Hemoglobin Concent 31.3L, Red Cell Distribution Width 14.9H, Platelet Count 205, Mean Platelet Volume 6.7, Neutrophils (%) (Auto) 83.4H, Lymphocytes (%) (Auto) 10.5L, Monocytes (%) (Auto) 5.4, Eosinophils (%) (Auto) 0.4, Basophils (%) (Auto) 0.2, Sodium Level 135L, Potassium Level 5.3H, Chloride Level 110H, Carbon Dioxide Level 30, Anion Gap -5L, Blood Urea Nitrogen 88H, Creatinine 1.7H, Estimat Glomerular Filtration Rate , Glucose Level 235H, Calcium Level 9.9 Height (Feet): 5 Height (Inches): 8.00 Weight (Pounds): 173 Objective WDWN NAD reduced breath sounds bilaterally without rhonchi or wheeze [id number] without MRG NABS;Gt in place; minimally distended no CC; some edema nonfocal skin exam noted confused reviewed and examined Dustin Mary MD Sep 23, 2018 08:26
[2018-09-23] MEDS ORDERED: Metoprolol Tartrate 50mg tab ORAL SCH (10:30)
--- NOTE | 2018-09-23 10:31 | GI Progress Note ---
Assessment/Plan Problems: (1) Anemia ICD Codes: D64.9 - Anemia, unspecified SNOMED: 996096727 (2) Liver mass ICD Codes: R16.0 - Hepatomegaly, not elsewhere classified SNOMED: 099233095 (3) Fecal impaction ICD Codes: K56.41 - Fecal impaction SNOMED: 59328601 (4) CVA (cerebral vascular accident) ICD Codes: I63.9 - CVA (cerebral vascular accident) SNOMED: 425169952 (5) G tube feedings ICD Codes: Z93.1 - Gastrostomy status SNOMED: 363970205, 532065950, 922015614 (6) Abdominal distension ICD Codes: R14.0 - Abdominal distension (gaseous) SNOMED: 27451547 (7) Constipation ICD Codes: K59.00 - Constipation, unspecified SNOMED: 18257286 Qualifiers: Qualified Codes: K59.00 - Constipation, unspecified Status: stable, unchanged Status Narrative Discussed with Dr. Gonzales. Assessment/Plan Status post paracentesis yielding 5.5 L of fluid GT was changed at the bedside GT site care per wound care recommendations G-tube feedings Reglan low dose Monitor H&H, PRN transfusions Turn patient every 2 hours bowel regimen The patient was seen and examined at bedside and all new and available data was reviewed in the patients chart. I agree with the above findings, impression and plan. (Patient seen earlier today. Signature stamp does not reflect patient encounter time.). - Demetris Gonzales MD Subjective Subjective Limited Objective Last 24 Hour Vital Signs Date Time Temp Pulse Resp B/P (MAP) Pulse Ox O2 Delivery O2 Flow Rate FiO2 09/23/18 07:56 111 20 99 Nasal Cannula 2.0 09/23/18 07:42 115 20 97 Nasal Cannula 2.0 09/23/18 07:41 97 Nasal Cannula 2.0 09/23/18 04:00 98.5 120 20 113/55 (74) 95 09/23/18 03:50 28 09/23/18 03:50 96 18 99 Nasal Cannula 2.0 09/23/18 03:39 94 18 97 Nasal Cannula 2.0 09/23/18 00:00 98.6 116 21 123/55 (77) 95 09/22/18 23:33 28 09/22/18 23:33 98 18 100 Nasal Cannula 2.0 28 09/22/18 23:26 96 18 97 Nasal Cannula 2.0 28 09/22/18 21:00 Nasal Cannula 2.0 09/22/18 20:00 98.6 112 20 98/58 (71) 95 09/22/18 19:59 86 18 99 Nasal Cannula 2.0 28 09/22/18 19:59 28 09/22/18 19:50 95 Nasal Cannula 2.0 09/22/18 19:48 82 18 95 Nasal Cannula 2.0 28 09/22/18 16:00 97.2 111 19 107/50 (69) 95 09/22/18 15:29 97 17 100 Nasal Cannula 2.0 28 09/22/18 15:16 28 09/22/18 15:15 98 18 100 Nasal Cannula 2.0 09/22/18 12:00 97.6 115 19 115/50 (71) 100 09/22/18 11:27 70 20 93 Nasal Cannula 2.0 09/22/18 11:23 28 09/22/18 11:17 67 18 87 Nasal Cannula 2.0 28 Intake and Output 09/22/18 09/23/18 19:00 07:00 Intake Total 740 ml 740 ml Balance 740 ml 740 ml Intake Free Water 200 ml 200 ml Tube Feeding 540 ml 540 ml Laboratory Tests Test 09/23/18 07:04 White Blood Count 10.1 K/UL (4.8-10.8) Red Blood Count 3.67 M/UL (4.70-6.10) L Hemoglobin 11.1 G/DL (14.2-18.0) L Hematocrit 35.5 % (42.0-52.0) L Mean Corpuscular Volume 97 FL (80-99) Mean Corpuscular Hemoglobin 30.3 PG (27.0-31.0) Mean Corpuscular Hemoglobin Concent 31.3 G/DL (32.0-36.0) L Red Cell Distribution Width 14.9 % (11.6-14.8) H Platelet Count 205 K/UL (150-450) Mean Platelet Volume 6.7 FL (6.5-10.1) Neutrophils (%) (Auto) 83.4 % (45.0-75.0) H Lymphocytes (%) (Auto) 10.5 % (20.0-45.0) L Monocytes (%) (Auto) 5.4 % (1.0-10.0) Eosinophils (%) (Auto) 0.4 % (0.0-3.0) Basophils (%) (Auto) 0.2 % (0.0-2.0) Sodium Level 135 MMOL/L (136-145) L Potassium Level 5.3 MMOL/L (3.5-5.1) H Chloride Level 110 MMOL/L (98-107) H Carbon Dioxide Level 30 MMOL/L (21-32) Anion Gap -5 mmol/L (5-15) L Blood Urea Nitrogen 88 mg/dL (7-18) H Creatinine 1.7 MG/DL (0.55-1.30) H Estimat Glomerular Filtration Rate mL/min (>60) Glucose Level 235 MG/DL (74-106) H Calcium Level 9.9 MG/DL (8.5-10.1) Height (Feet): 5 Height (Inches): 8.00 Weight (Pounds): 173 General Appearance: WD/WN, no apparent distress, alert Cardiovascular: normal rate Respiratory/Chest: normal breath sounds, no respiratory distress Abdominal Exam: normal bowel sounds, non tender, soft, GT site Extremities: normal range of motion, non-tender Michelle Samuel NP Sep 23, 2018 10:31
[2018-09-23] MEDS: Vitamin D 1000 IU Tab GT SCH ×2 (10:58→18:00)
[2018-09-23] MEDS: Lactulose 10gm/15ml UDC GT SCH ×3 (10:58→18:00)
[2018-09-23] MEDS: Docusate 100mg/10ml Liq GT SCH ×2 (10:58→18:00)
[2018-09-23] MEDS: Heparin 5000 units/ml inj SUBQ SCH ×2 (10:59→21:00)
--- NOTE | 2018-09-23 12:00 | NUR ---
NURSE NOTES: changed sacral dressing as per order.
--- NOTE | 2018-09-23 12:26 | Hematology/Onc Progress Note ---
Assessment/Plan Assessment/Plan Assessment and Recs # Liver mass - large heterogeneous mass in the right lobe of the liver suspicious for malignant neoplasm --> imaging has been reviewed and c/w likely malignancy --> as per Gi recs, defer tumor biopsy, has been present prior admission --> treatment once have results of primary --> imaging as needed r/o ascites --> tumor markers reviewed are wnl # Anemia of chronic disease due to underlying chronic medical issues, multifactorial --> Anemia workup reviewed, rule out gi bleed, ferritin is 118 --> No evidence of hemolysis is noted, peripheral smear has been reviewed. --> Hgb goal >7. Transfuse prn. --> Epogen or iron at this time is not particularly indicated --> Medications have been reviewed --> improved trend 10-->11-->12-->11.8-->11.5-->11.4-->11.4-->10.5 # Hypercalcemia - on admission elev, due to likely dehydration --> Ca has improved, on ivf --> on IVF also for hypernatremia --> per renal recs # Fecal impaction/constipation --> on colace, senna as per gi # Abdominal distension --> improved mildly, per gi # DVT ppx with heparin sq The timing of this note does not necessarily reflect the time of the patient was seen. GREATLY APPRECIATE CONSULTATION. Subjective Constitutional: Denies: no symptoms, chills, fever, malaise, weakness, other HEENT: Denies: no symptoms, eye pain, blurred vision, tearing, double vision, ear pain, ear discharge, nose pain, nose congestion, throat pain, throat swelling, mouth pain, mouth swelling, other Cardiovascular: Denies: no symptoms, chest pain, edema, irregular heart rate, lightheadedness, palpitations, syncope, other Respiratory: Denies: no symptoms, cough, shortness of breath, SOB with excertion, SOB at rest, sputum, wheezing, other Gastrointestinal/Abdominal: Denies: no symptoms, abdomen distended, abdominal pain, black stools, tarry stools, blood in stool, constipated, diarrhea, difficulty swallowing, nausea, poor appetite, poor fluid intake, rectal bleeding , vomiting, other Genitourinary: Denies: no symptoms, burning, discharge, frequency, flank pain, hematuria, incontinence, pain, urgency, other Neurologic/Psychiatric: Denies: no symptoms, anxiety, depressed, emotional problems, headache, numbness, paresthesia, pre-existing deficit, seizure, tingling, tremors, weakness, other Endocrine: Denies: no symptoms, excessive sweating, flushing, intolerance to cold, intolerance to heat, increased hunger, increased thirst, increased urine, unexplained weight gain, unexplained weight loss, other Allergies: Coded Allergies: No Known Allergies (Verified , 06/07/08) Subjective 09/10: no bleeding, no night sweats, no events otherwise, labs pending 09/11: liver biopsy cancelled, no events, tumor markers neg 09/12: no events, no bleeding, h/h reviewed, no f/c 09/13: patient being turned every 2 hrs, seen by gi 09/14: no events, still with abd pain, imaging per gi 09/16: arousable, nonverbal, no events reported 09/17: 5.5L of fluid removed via para, no events otherwise, no f/c 09/18: seen by pulm, gi, no events, wbc is 11.3 09/19: no f/c, no events reported, on heparin sq dvt ppx 09/20: resting in bed, no acute events labs reviewed. 09/21: nonverbal, no acute events, labs reviewed 09/22: non verbal; on nc 2 L, no sign of distress and shortness of breath, cbc for tomorrow morning 09/23: on 2l nc, no fevers or chills reported, labs were reviewed Objective Objective Current Medications Medications (Trade) Dose Ordered Sig/Reagan Route PRN Reason Start Time Stop Time Status Last Admin Dose Admin Acetaminophen (Tylenol) 650 mg Q4H PRN GT Mild Pain/Temp > 100.5 09/19/18 16:30 10/09/18 16:29 Albuterol/ Ipratropium (Albuterol/ Ipratropium) 3 ml Q4HRT HHN 09/21/18 19:00 09/26/18 18:59 09/23/18 11:06 Artificial Tears (Akwa-Tears) 1 drop EVERY 12 HOURS BOTH EYES 09/19/18 21:00 10/15/18 20:59 09/22/18 21:59 Dextrose (Dextrose 50%) 25 ml Q30M PRN IV Hypoglycemia 09/19/18 16:30 10/03/18 21:29 Dextrose (Dextrose 50%) 50 ml Q30M PRN IV Hypoglycemia 09/19/18 16:30 10/03/18 21:29 Docusate Sodium (Colace) 100 mg BID GT 09/19/18 18:00 10/04/18 08:59 09/23/18 10:58 Donepezil HCl (Aricept) 10 mg BEDTIME GT 09/19/18 21:00 10/04/18 20:59 09/22/18 21:59 Heparin Sodium (Porcine) (Heparin 5000 units/ml) 5,000 units EVERY 12 HOURS SUBQ 09/19/18 21:00 10/04/18 08:59 09/23/18 10:59 Hydralazine HCl (Apresoline) 25 mg Q6H PRN GT For High Blood Pressure 09/19/18 16:30 10/09/18 16:29 Insulin Aspart (NovoLOG) EVERY 6 HOURS SUBQ 09/19/18 18:00 10/10/18 06:29 09/23/18 06:16 Insulin Detemir (Levemir) 10 units DAILY SUBQ 09/24/18 09:00 10/24/18 08:59 Lactulose (Cephulac) 10 gm THREE TIMES A DAY GT 09/19/18 18:00 10/08/18 12:59 09/23/18 10:58 Metoclopramide HCl (Reglan) 5 mg Q8H PRN IVP Nausea & Vomiting 09/19/18 17:00 10/10/18 08:59 Metoprolol Tartrate (Lopressor) 25 mg Q12HR ORAL 09/23/18 21:00 10/23/18 20:59 Mineral Oil (Mineral Oil) 30 ml DAILYPRN PRN GT Constipation 09/19/18 16:30 10/09/18 16:29 Polyethylene Glycol (Miralax) 17 gm BEDTIME GT 09/19/18 21:00 10/06/18 20:59 09/22/18 21:59 Vitamin D (Vitamin D) 1,000 intlu TWICE A DAY GT 09/19/18 18:00 10/04/18 08:59 09/23/18 10:58 Zinc Oxide (Desitin) 1 applic EVERY 8 HOURS TOPIC 09/19/18 22:00 10/08/18 10:29 09/23/18 06:08 Last 24 Hour Vital Signs Date Time Temp Pulse Resp B/P (MAP) Pulse Ox O2 Delivery O2 Flow Rate FiO2 09/23/18 11:08 112 20 98 Nasal Cannula 2.0 28 09/23/18 11:08 129 133/63 09/23/18 11:00 129 20 95 Nasal Cannula 2.0 28 09/23/18 07:56 111 20 99 Nasal Cannula 2.0 28 09/23/18 07:42 115 20 97 Nasal Cannula 2.0 28 09/23/18 07:41 97 Nasal Cannula 2.0 28 09/23/18 04:00 98.5 120 20 113/55 (74) 95 09/23/18 03:50 28 09/23/18 03:50 96 18 99 Nasal Cannula 2.0 28 09/23/18 03:39 94 18 97 Nasal Cannula 2.0 28 09/23/18 00:00 98.6 116 21 123/55 (77) 95 09/22/18 23:33 28 09/22/18 23:33 98 18 100 Nasal Cannula 2.0 28 09/22/18 23:26 96 18 97 Nasal Cannula 2.0 28 09/22/18 21:00 Nasal Cannula 2.0 09/22/18 20:00 98.6 112 20 98/58 (71) 95 09/22/18 19:59 86 18 99 Nasal Cannula 2.0 28 09/22/18 19:59 28 09/22/18 19:50 95 Nasal Cannula 2.0 09/22/18 19:48 82 18 95 Nasal Cannula 2.0 28 09/22/18 16:00 97.2 111 19 107/50 (69) 95 09/22/18 15:29 97 17 100 Nasal Cannula 2.0 28 09/22/18 15:16 28 09/22/18 15:15 98 18 100 Nasal Cannula 2.0 28 09/22/18 12:00 97.6 115 19 115/50 (71) 100 09/22/18 11:27 70 20 93 Nasal Cannula 2.0 28 09/22/18 11:23 28 09/22/18 11:17 67 18 87 Nasal Cannula 2.0 28 09/22/18 09:00 Nasal Cannula 2.0 09/22/18 08:51 105/75 09/22/18 08:00 98.4 104 19 105/75 (85) 98 09/22/18 07:26 75 20 99 Nasal Cannula 2.0 28 09/22/18 07:15 28 09/22/18 07:14 98 Nasal Cannula 2.0 09/22/18 07:13 72 18 98 Nasal Cannula 2.0 28 09/22/18 04:00 97.0 97 20 109/73 (85) 100 09/22/18 02:40 81 20 99 Nasal Cannula 2.0 09/22/18 02:40 28 09/22/18 02:32 70 20 97 Nasal Cannula 2.0 09/22/18 00:19 85 20 100 Nasal Cannula 2.0 09/22/18 00:19 28 09/22/18 00:11 78 20 98 Nasal Cannula 2.0 09/22/18 00:00 97.1 87 18 103/47 (65) 97 09/21/18 21:00 Nasal Cannula 2.0 09/21/18 20:00 97.3 96 18 98/44 (62) 95 09/21/18 20:00 28 09/21/18 20:00 78 20 99 Nasal Cannula 2.0 09/21/18 19:55 72 20 98 Nasal Cannula 2.0 09/21/18 19:54 98 Nasal Cannula 2.0 09/21/18 19:52 72 20 98 Nasal Cannula 2.0 09/21/18 16:00 98.0 98 18 125/86 (99) 95 Intake and Output 09/22/18 09/23/18 19:00 07:00 Intake Total 740 ml 740 ml Balance 740 ml 740 ml Intake Free Water 200 ml 200 ml Tube Feeding 540 ml 540 ml Labs Test 09/21/18 05:50 09/23/18 07:04 White Blood Count 10.1 K/UL (4.8-10.8) 10.1 K/UL (4.8-10.8) Red Blood Count 3.45 M/UL (4.70-6.10) 3.67 M/UL (4.70-6.10) Hemoglobin 10.5 G/DL (14.2-18.0) 11.1 G/DL (14.2-18.0) Hematocrit 32.7 % (42.0-52.0) 35.5 % (42.0-52.0) Mean Corpuscular Volume 95 FL (80-99) 97 FL (80-99) Mean Corpuscular Hemoglobin 30.4 PG (27.0-31.0) 30.3 PG (27.0-31.0) Mean Corpuscular Hemoglobin Concent 32.1 G/DL (32.0-36.0) 31.3 G/DL (32.0-36.0) Red Cell Distribution Width 14.5 % (11.6-14.8) 14.9 % (11.6-14.8) Platelet Count 173 K/UL (150-450) 205 K/UL (150-450) Mean Platelet Volume 6.9 FL (6.5-10.1) 6.7 FL (6.5-10.1) Neutrophils (%) (Auto) 78.9 % (45.0-75.0) 83.4 % (45.0-75.0) Lymphocytes (%) (Auto) 14.3 % (20.0-45.0) 10.5 % (20.0-45.0) Monocytes (%) (Auto) 6.2 % (1.0-10.0) 5.4 % (1.0-10.0) Eosinophils (%) (Auto) 0.3 % (0.0-3.0) 0.4 % (0.0-3.0) Basophils (%) (Auto) 0.3 % (0.0-2.0) 0.2 % (0.0-2.0) Sodium Level 143 MMOL/L (136-145) 135 MMOL/L (136-145) Potassium Level 5.0 MMOL/L (3.5-5.1) 5.3 MMOL/L (3.5-5.1) Chloride Level 109 MMOL/L (98-107) 110 MMOL/L (98-107) Carbon Dioxide Level 28 MMOL/L (21-32) 30 MMOL/L (21-32) Anion Gap 6 mmol/L (5-15) -5 mmol/L (5-15) Blood Urea Nitrogen 84 mg/dL (7-18) 88 mg/dL (7-18) Creatinine 1.5 MG/DL (0.55-1.30) 1.7 MG/DL (0.55-1.30) Estimat Glomerular Filtration Rate mL/min (>60) mL/min (>60) Glucose Level 98 MG/DL (74-106) 235 MG/DL (74-106) Calcium Level 10.1 MG/DL (8.5-10.1) 9.9 MG/DL (8.5-10.1) Height (Feet): 5 Height (Inches): 8.00 Weight (Pounds): 173 Objective Gen: well appearing, no apparent distress, alert Head: normocephalic EENT: PERRL/EOMI, normal ENT inspection Pulm: normal breath sounds, no respiratory distress. NC+ CV: rrr. no mgr GI: normal inspection, non tender, soft, normal bowel sounds, non-distended ++ gtube Rectal: deferred Gu: johnston++ Musculoskeletal: normal inspection, back normal Neurologic: normal inspection, alert, oriented x3, responsive Psychiatric: normal inspection, judgement/insight normal, memory normal Skin: normal inspection, normal color, no rash, warm/dry, palpation normal, well hydrated Fadi Vicente MD Sep 23, 2018 12:26
[2018-09-23] MEDS: Artificial Tears 1.4% Op Soln BOTH EYES SCH ×2 (12:49→21:38)
--- NOTE | 2018-09-23 12:52 | Diagnostic Imaging Report ---
Indication: Abdominal pain Technique: Supine view of the abdomen Comparison: 09/16/2018 Findings: Body habitus severely limits evaluation. Bowel gas pattern is grossly unremarkable. A pacemaker wire is demonstrated in the heart. There are degenerative changes of the thoracic and lumbar spine Impression: Very limited exam, as described No definite acute process
--- NOTE | 2018-09-23 13:30 | NUR ---
NURSE NOTES: notified PRIVATE INQUIRY AGENT Alexx regarding thick light brownish residual around GT insertion site. Also reported pt's oozing serous secretion through LRQ paracenthesis site.
--- NOTE | 2018-09-23 13:56 | NUR ---
RD ASSESSMENT & RECOMMENDATIONS SEE CARE ACTIVITY FOR COMPLETE ASSESSMENT DAILY ESTIMATED NEEDS: Needs based on DM, wound/ 65.5kg 25-30 kcals/kg 5038-5180 total kcals 1.25-1.5 g protein/kg 81-99 g total protein 25-30 mL/kg 3325-4753 total fluid mLs NUTRITION DIAGNOSIS: 1) Altered GI fxn r/t SBO and fecal impaction as evidenced by pt w/ elev tube feeding residuals, now off GT to LIS, w/ continued varied tolerance, on reglan. 2) Swallowing difficulty R/T dysphagia as evidenced by pt w/ GT, on GT feeding + oral diet on pureed [employer]ESSIONAL ORGANIZER, currently w/ an order for TF only. 3) Increased kcal/prot/micronutrients needs R/T wound healing as evidenced by evolving DTPI sacrum, non-blanchable erythema with fluctuance L heel, non-blanchable erythema without fluctuance R heel. CURRENT TF:GLUCERNA 1.5 @ 45ML/HR X 24 HRS ENTERAL NUTRITION RECOMMENDATIONS: GLUCERNA 1.5 @ 46ML/HR X 24 HRS to provide 1104ml, 1656kcal, 91g prot, 838ml free water * Increase goal rate to 46ml/hr x 24 hrs to meet 100% est kcal/prot needs * HOB >30 degrees, H2O flushes per MD * At goal, TF provides 100% of est. kcal & prot needs WITH CONSISTENTLY ELEV K: REC TF CHANGE TO NEPRO @ 38ML/HR X 24 HRS + PROSOURCE 1PKT QD to provide 912ml, 1642ml free water, 85g prot ADDITIONAL RECOMMENDATIONS: 1) Rec to UPDATE WT POST TXR -> RECALIRATE BED SCALE 2) Consider METAL HANGING SUPERVISOR eval for oral diet -> Pt on pureed texture diet [employer]ESSIONAL ORGANIZER 3) Monitor TF tolerance: distended abdomen w/ h/o residuals 4) Wound healing: add Vit C 250mg QD, Jarocho 1pkt BID 5) Monitor K (5.3), need for TF change to Nepro
--- NOTE | 2018-09-23 14:05 | Surgery Progress Note ---
Surgery Progress Note Subjective Additional Comments electrolytes off today renal function deteriorating kub noted exam unchanged. Objective Last 24 Hour Vital Signs Date Time Temp Pulse Resp B/P (MAP) Pulse Ox O2 Delivery O2 Flow Rate FiO2 09/23/18 11:08 112 20 98 Nasal Cannula 2.0 28 09/23/18 11:08 129 133/63 09/23/18 11:00 129 20 95 Nasal Cannula 2.0 28 09/23/18 09:00 Nasal Cannula 2.0 09/23/18 07:56 111 20 99 Nasal Cannula 2.0 28 09/23/18 07:42 115 20 97 Nasal Cannula 2.0 28 09/23/18 07:41 97 Nasal Cannula 2.0 28 09/23/18 04:00 98.5 120 20 113/55 (74) 95 09/23/18 03:50 28 09/23/18 03:50 96 18 99 Nasal Cannula 2.0 28 09/23/18 03:39 94 18 97 Nasal Cannula 2.0 28 09/23/18 00:00 98.6 116 21 123/55 (77) 95 09/22/18 23:33 28 09/22/18 23:33 98 18 100 Nasal Cannula 2.0 28 09/22/18 23:26 96 18 97 Nasal Cannula 2.0 28 09/22/18 21:00 Nasal Cannula 2.0 09/22/18 20:00 98.6 112 20 98/58 (71) 95 09/22/18 19:59 86 18 99 Nasal Cannula 2.0 28 09/22/18 19:59 28 09/22/18 19:50 95 Nasal Cannula 2.0 28 09/22/18 19:48 82 18 95 Nasal Cannula 2.0 28 09/22/18 16:00 97.2 111 19 107/50 (69) 95 09/22/18 15:29 97 17 100 Nasal Cannula 2.0 28 09/22/18 15:16 28 09/22/18 15:15 98 18 100 Nasal Cannula 2.0 28 I&O Intake and Output 09/22/18 09/23/18 19:00 07:00 Intake Total 740 ml 740 ml Balance 740 ml 740 ml Intake Free Water 200 ml 200 ml Tube Feeding 540 ml 540 ml Cardiovascular: RSR Respiratory: clear Abdomen: soft, distended - fluid not gas, non-tender, present bowel sounds Extremities: no tenderness, no cyanosis Laboratory Tests Test 09/23/18 07:04 White Blood Count 10.1 K/UL (4.8-10.8) Red Blood Count 3.67 M/UL (4.70-6.10) L Hemoglobin 11.1 G/DL (14.2-18.0) L Hematocrit 35.5 % (42.0-52.0) L Mean Corpuscular Volume 97 FL (80-99) Mean Corpuscular Hemoglobin 30.3 PG (27.0-31.0) Mean Corpuscular Hemoglobin Concent 31.3 G/DL (32.0-36.0) L Red Cell Distribution Width 14.9 % (11.6-14.8) H Platelet Count 205 K/UL (150-450) Mean Platelet Volume 6.7 FL (6.5-10.1) Neutrophils (%) (Auto) 83.4 % (45.0-75.0) H Lymphocytes (%) (Auto) 10.5 % (20.0-45.0) L Monocytes (%) (Auto) 5.4 % (1.0-10.0) Eosinophils (%) (Auto) 0.4 % (0.0-3.0) Basophils (%) (Auto) 0.2 % (0.0-2.0) Sodium Level 135 MMOL/L (136-145) L Potassium Level 5.3 MMOL/L (3.5-5.1) H Chloride Level 110 MMOL/L (98-107) H Carbon Dioxide Level 30 MMOL/L (21-32) Anion Gap -5 mmol/L (5-15) L Blood Urea Nitrogen 88 mg/dL (7-18) H Creatinine 1.7 MG/DL (0.55-1.30) H Estimat Glomerular Filtration Rate mL/min (>60) Glucose Level 235 MG/DL (74-106) H Calcium Level 9.9 MG/DL (8.5-10.1) Plan Problems: (1) Abdominal distension Assessment & Plan: improved tolerating diet exam unchanged with fluid but no sbo possible declining liver function with declining real function (2) Malnutrition Assessment & Plan: Evolving DTPI sacrum. Base of wound has 100% soft necrosis ( L)2.5cm x (W)3.2cm with surrounding non-blanchable erythema with induration noted. (L)6.5cm x(W)8cm. Erythema noted to scrotum . Non-blanchable erythema with fluctuance L heel. Non-blanchable erythema without fluctuance R heel. G site erythematous with denuded skin. Surrounding adhesive related skin tears noted to surrounding skin with small amt sanguineous exudate.Area gentlyu cleansed with soap and water .Pat dried. Zinc Oxide paste applied to GT site and surrounding skin damage . 4 x $ drain gauze appied around Gt site without tape. Recommended to primary nurse to avoid taping gauze around Gt . Tx.Plan: Cleanse Sacral wound with Saline. Apply Therahoney. Apply Moisture Barrier Periwound. Cover with Optifoam drsg. Change every 3 days and prn. Apply Moisture Barrier Paste to Bilat groin and scrotum with each incontinence care. Gently cleanse GT site with Soap and water. Pat dry. Apply Zinc Oxide paste daily and prn.Place 4x4 gauze around GT. Do Not Tape Gauze. Apply Cavilon Skin Barrier to both heels. Cover each heel with Optifoam drsg. Change every 7 days and prn. APM/WIL Mattress. Reposition at least every 2hours or as tolerated. Off-load heels with pillow. Jesse Cash Sep 23, 2018 14:05
--- NOTE | 2018-09-23 15:00 | NUR ---
NURSE NOTES: GT is clogged, notified CONSULTING PROJECT DIRECTOR Alexx.
--- NOTE | 2018-09-23 16:00 | Progress Note ---
DATE: 09/22/2018 CARDIOLOGY PROGRESS NOTE Late entry. SUBJECTIVE: Abdominal distention persists. G-tube in place. Marginal tolerance to nutrition. Edema worsening. OBJECTIVE: VITAL SIGNS: Blood pressure 109/73, heart rate 97, respirations 20, afebrile, and oxygen saturation on 2 liters 98%. LUNGS: Diminished breath sounds. Few rales. HEART: Irregularly irregular rhythm. Normal S1, S2. A 1/6 systolic murmur at apex. ABDOMEN: Soft. G-tube intact. EXTREMITIES: Trace edema. LABORATORY DATA: No new laboratory studies. IMPRESSION: 1. Liver mass, likely malignant. 2. Gastroparesis with abdominal distention. 3. Acute renal failure with worsening azotemia. 4. Acute on chronic diastolic congestive heart failure. 5. Permanent pacemaker. 6. Paroxysmal atrial fibrillation. 7. Hypertensive heart disease. 8. Anemia of chronic disease. 9. Insulin-requiring diabetes mellitus. PLAN: 1. Decompression. 2. Bowel regimen. 3. Malignancy workup in progress. 4. Reassess losartan. 5. Consider beta-jaison resumption. 6. Diuresis based on clinical parameters. Marcellus Richards M.D. DR: KARLEE JOB#: [id number] CC:
--- NOTE | 2018-09-23 16:00 | NUR ---
NURSE NOTES: notified dr. Mary re: GT clogged, and previously leaking on the inserion site, K 5.3, oozing serous secretion through paracentesis puncture site, and previously tachycardia 120s but after GTF off HR 107. No new order received.
--- NOTE | 2018-09-23 16:00 | Progress Note ---
DATE: 09/21/2018 CARDIOLOGY PROGRESS NOTE Late entry SUBJECTIVE: The patient remains with bowel dysfunction. Liver mass is noted with ongoing workup, abdominal distention slightly improved. OBJECTIVE: VITAL SIGNS: Blood pressure 108/56, pulse 96, respiratory rate 20 earlier. Now blood pressure 125/86, pulse 72, respiratory rate 20. LUNGS: Diminished breath sounds. CARDIAC: Irregularly irregular rhythm. Normal S1, S2. A 1/6 systolic apical murmur. ABDOMEN: Soft and distended. EXTREMITIES: With trace edema. LABORATORY DATA: White count 10.1, hemoglobin 10.5. Sodium 143, potassium 5, bicarb 28, BUN 84, creatinine 1.5. IMPRESSION: 1. Liver mass. 2. Anemia. 3. Paroxysmal atrial fibrillation. 4. Hypertensive heart disease. 5. Acute on chronic diastolic congestive heart failure. 6. Permanent pacemaker. 7. Abdominal distention and fecal impaction. 8. Type 2 diabetes mellitus, on insulin. 9. Acute renal failure with worsening azotemia. PLAN: 1. Bowel regimen. 2. Malignancy workup in progress. 3. Transfuse for hemoglobin less than 8. 4. Consider resumption of beta-jaison. 5. Diuresis based on clinical parameters and renal function. Marcellus Richards M.D. DR: Nakul JOB#: [id number] CC:
--- NOTE | 2018-09-23 16:30 | Progress Note ---
DATE: 09/23/2018 CARDIOLOGY PROGRESS NOTE SUBJECTIVE: No significant progress. Continues to have abdominal distention. OBJECTIVE: VITAL SIGNS: Blood pressure 122/55, pulse 116, respiratory rate 21, afebrile. LUNGS: Few rales bilaterally. Elevated jugular venous pressure. HEART: Irregularly irregular rhythm. Normal S1, S2. ABDOMEN: Distended, but soft. EXTREMITIES: With trace edema. LABORATORY DATA: Notable for sodium 135, potassium 5.3, bicarbonate 30, BUN 88, creatinine 1.7, glucose 235. White count 10.1, hemoglobin 11.1. IMPRESSION: Liver mass, gastroparesis with abdominal distention, paroxysmal atrial fibrillation with increased ventricular rate now, acute on chronic diastolic congestive heart failure, acute on chronic renal failure with worsening prerenal azotemia, and borderline hyperkalemia. PLAN: Restart beta-jaison. Discontinue losartan. Monitor chemistry panel. Hold statin drug until GI parameters are more stable. Insulin coverage by sliding scale, with titration of long-acting insulin as well. Discontinue oral hypoglycemic therapy for now. Marcellus Richards M.D. DR: HUNG JOB#: [id number] CC:
--- NOTE | 2018-09-23 19:48 | NUR ---
HAND-OFF: Report given to RN [place].
--- NOTE | 2018-09-23 19:50 | NUR ---
NURSE NOTES: Patient is in bed resting, alert x1 and nonverbal. Patient is on nasal cannula 2L with no signs of distress or SOB. Will provide suctioning as needed. Schmid is intact and draining urine. Left forearm IV intact. Gtube is clogged per day shift, GT feeds on hold, pt NPO. Bed is locked and in lowest position with HOB elevated, side rails x2, call light in reach, bed alarm on. Will continue to monitor.
--- NOTE | 2018-09-23 20:54 | NUR ---
NURSE NOTES: I was able to unclog the GT. will call MD and inform him that it is functioning. Pt had thick tenacious secretions and I suctioned three times orally. Called RT to suction tx.
[2018-09-23] MEDS: Miralax 17gm pkt GT SCH (20:59)
[2018-09-23] MEDS ORDERED: Metoprolol 25mg tab ORAL SCH (21:00)
[2018-09-23] MEDS: Donepezil 10mg tab GT SCH (21:38)
[2018-09-24] VITALS (24 sets, daily range): BP systolic 76–131; BP diastolic 23–113
--- NOTE | 2018-09-24 03:50 | NUR ---
RESPIRATORY NOTE: PT FOUND WITH AN INCREASED HR OF 125 AND A LOW SP2 OF 80-85% ON A N/C AT 3LPM. LOUD AUDIBLE RALES AND GURGLING COULD BE HEARD. PROCEEDED TO PLACE PT ON HHN TX, AND DID CPT. SPO2 IMPROVED ON HHN TX. AFTER CPT GURGLING BECAME LOUDER AND PT WAS NT SX. LARGE ABOUT OF BLOODY SECRETIONS WERE OBTAINED FROM THE LEFT NOSTRIL. PT SPO2 CONTINUED TO FLUCTUATE BETWEEN 87 AND 90%. PT WAS PLACED ON A VENTI MASK @ 14LPM 55% FIO2 AND SPO2 INCREASED TO 93%-95%. HR CONTINUES TO BE AT 120-125 BPM. RR IS CURRENT ABOUT 25-28 BPM. GURGLING STOPPED BUT RALES CAN STILL BE HEARD ON AUSCULTATION. RN. RIVAS WAS CALLED AND IS AT BEDSIDE. WILL CONTINUE TO CLOSELY MONITOR.
[2018-09-24] MEDS: Albuterol/Ipratropium 3ml neb HHN SCH ×6 (03:52→22:41)
--- NOTE | 2018-09-24 05:27 | NUR ---
NURSE NOTES: Pt is unstable VS 102.6, RR 24. 82/49, pulse ox 93% but on 15 L face mask, was nasal cannula 2-3L HR 120-130. Desaturates rapidly. requires suctioning constantly. Despite suctioningMD Usman contacted, awaiting response. Called house sup to reach directly.
--- NOTE | 2018-09-24 05:34 | NUR ---
NURSE NOTES: Dr Mary responded and said to transfer to ICU, orders entered. Awaiting bed in ICU
[2018-09-24] MEDS: Desitin Rash Paste TOPIC SCH ×4 (06:00→21:49)
[2018-09-24] MEDS: NovoLOG Insulin Flexpen SUBQ SCH ×6 (06:00→23:38)
--- NOTE | 2018-09-24 06:40 | NUR ---
HAND-OFF: Report given to ISMAEL Lopez. Belongings list signed, transferred to ICU bed 246 F
--- NOTE | 2018-09-24 06:41 | NUR ---
NURSE NOTES: Received a transfer patient from ,received report from ISMAEL Baldwin.Patient stable,tolerated portable oxygen with mask 15L/min well,right of way clearer connected,SR on monitor,no fever at this moment,BS active in all quadrants,picture on sacral area taken and uploaded,bed secured in a low safety position,call light within a reach,belongings list signed.
[2018-09-24] MEDS ORDERED: HydrALAZINE 25mg tab GT PRN (07:00)
--- NOTE | 2018-09-24 07:26 | NUR ---
HAND-OFF: Report given to Kim Saravia RN.Patient stable.
--- NOTE | 2018-09-24 07:40 | NUR ---
NURSE NOTES: Received the patient from ISMAEL Lopez. s/p FIRST AID NURSE this am. Patient is lethargic, nonverbal, response to pain. Patient on venturi mask, 14L, FIO2 55%. Afib HR 110s noted on the repair specialist. G-tube intact, leakage noted. Patient kept NPO. HOB elevated. Schmid cath intact and patent, draining katerina urine by gravity. Left wrist 24G intact, patent, saline locked. Patient on P200 for sacral wound. wound dressings intact, clean and dry. Bed in lowest position, locked. Side rails upx3. Bed alarm on.
--- NOTE | 2018-09-24 07:41 | Diagnostic Imaging Report ---
Indication: Tachypnea Technique: One view of the chest Comparison: 09/17/2018 Findings: Again demonstrated is right lung interstitial and airspace disease, appearing similar in extent to the prior study. There is interim development of interstitial and airspace disease on the left. The left hemidiaphragm is now obscured, developing pleural fluid likely. However, previously demonstrated right pleural effusion appears improved as the diaphragm is now visible. The heart remains enlarged. There is a unifocal pacemaker again demonstrated. Impression: Stable right and increasing left-sided infiltrates versus edema, since prior study of 09/17/2018 Apparent developing left but improving right pleural effusions
[2018-09-24] MEDS ORDERED: Mineral Oil 30ml ud GT PRN (08:00)
[2018-09-24] MEDS ORDERED: Piperacillin/Tazobactam 3.375 GM in NS 110 ML IVPB SCH (08:00)
[2018-09-24 08:06] LABS: BASOPHILS % (AUTO) 0.3 % (0.0-2.0); EOSINOPHILS % (AUTO) 0.1 % (0.0-3.0); HEMATOCRIT 32.1 % (42.0-52.0); HEMOGLOBIN 10.1 G/DL (14.2-18.0); LYMPHOCYTES % (AUTO) 10.4 % (20.0-45.0); MEAN CORPUSCULAR VOLUME 96 FL (80-99); MONOCYTES % (AUTO) 5.9 % (1.0-10.0); NEUTROPHILS % (AUTO) 83.3 % (45.0-75.0); PLATELET COUNT 225 K/UL (150-450); RED BLOOD COUNT 3.33 M/UL (4.70-6.10); RED CELL DISTRIBUTION WIDTH 14.9 % (11.6-14.8); WHITE BLOOD COUNT 11.5 K/UL (4.8-10.8)
[2018-09-24] MEDS ORDERED: Acetaminophen 650mg/20.3ml GT PRN (08:30)
--- NOTE | 2018-09-24 08:32 | GI Progress Note ---
Assessment/Plan Problems: (1) Anemia ICD Codes: D64.9 - Anemia, unspecified SNOMED: 290137053 (2) Liver mass ICD Codes: R16.0 - Hepatomegaly, not elsewhere classified SNOMED: 153397797 (3) Fecal impaction ICD Codes: K56.41 - Fecal impaction SNOMED: 43102125 (4) CVA (cerebral vascular accident) ICD Codes: I63.9 - CVA (cerebral vascular accident) SNOMED: 447994568 (5) G tube feedings ICD Codes: Z93.1 - Gastrostomy status SNOMED: 137419306, 197827123, 978197939 (6) Abdominal distension ICD Codes: R14.0 - Abdominal distension (gaseous) SNOMED: 95755458 (7) Constipation ICD Codes: K59.00 - Constipation, unspecified SNOMED: 42154977 Qualifiers: Qualified Codes: K59.00 - Constipation, unspecified Status: not improved Status Narrative Discussed with Dr. Gonzales. Assessment/Plan Status post paracentesis yielding 5.5 L of fluid plan for GT change today to 24 lux[place]bourgish. GT site care per wound care recommendations >> zinc oxide paste daily G-tube feedings per RD Reglan low dose Monitor H&H, PRN transfusions Turn patient every 2 hours bowel regimen The patient was seen and examined at bedside and all new and available data was reviewed in the patients chart. I agree with the above findings, impression and plan. (Patient seen earlier today. Signature stamp does not reflect patient encounter time.). - Demetris Gonzales MD Subjective Subjective Limited Objective Last 24 Hour Vital Signs Date Time Temp Pulse Resp B/P (MAP) Pulse Ox O2 Delivery O2 Flow Rate FiO2 09/24/18 08:19 102 22 98 Venturi Mask 14.0 55 09/24/18 08:00 Venturi Mask 14.0 09/24/18 07:54 125 35 80 Venturi Mask 14.0 55 09/24/18 07:50 95 Venturi Mask 14.0 55 09/24/18 05:27 102.6 120 24 82/49 (60) 94 09/24/18 05:03 102.6 09/24/18 04:00 102.2 128 24 96/44 (61) 93 09/24/18 03:59 125 28 93 Venturi Mask 14.0 55 09/24/18 03:50 125 35 80 Nasal Cannula 3.0 32 09/24/18 00:00 101.6 103 19 129/42 (71) 92 09/23/18 22:50 100 22 96 Nasal Cannula 3.0 32 09/23/18 22:36 95 20 93 Nasal Cannula 3.0 32 09/23/18 22:36 93 Nasal Cannula 3.0 32 09/23/18 22:32 Nasal Cannula 2.0 28 09/23/18 22:32 Nasal Cannula 2.0 28 09/23/18 21:50 97.7 108 20 116/47 (70) 90 09/23/18 21:00 Nasal Cannula 2.0 09/23/18 20:59 103 104/43 09/23/18 20:57 101.6 103 15 104/43 (63) 90 09/23/18 16:00 98.9 107 20 122/46 (71) 94 09/23/18 15:10 105 20 99 Nasal Cannula 2.0 28 09/23/18 15:02 101 20 94 Nasal Cannula 2.0 28 09/23/18 12:00 98.1 129 20 120/55 (76) 94 09/23/18 11:08 112 20 98 Nasal Cannula 2.0 28 09/23/18 11:08 129 133/63 09/23/18 11:00 129 20 95 Nasal Cannula 2.0 28 09/23/18 09:00 Nasal Cannula 2.0 Intake and Output 09/23/18 09/24/18 19:00 07:00 Intake Total 235 ml Output Total 800 ml 600 ml Balance -565 ml -600 ml Intake Free Water 100 ml Tube Feeding 135 ml Output Urine Total 800 ml 600 ml # Voids 2 # Bowel Movements 1 2 Laboratory Tests Test 09/24/18 07:50 09/24/18 07:58 White Blood Count 11.5 K/UL (4.8-10.8) H Red Blood Count 3.33 M/UL (4.70-6.10) L Hemoglobin 10.1 G/DL (14.2-18.0) L Hematocrit 32.1 % (42.0-52.0) L Mean Corpuscular Volume 96 FL (80-99) Mean Corpuscular Hemoglobin 30.3 PG (27.0-31.0) Mean Corpuscular Hemoglobin Concent 31.4 G/DL (32.0-36.0) L Red Cell Distribution Width 14.9 % (11.6-14.8) H Platelet Count 225 K/UL (150-450) Mean Platelet Volume 5.8 FL (6.5-10.1) L Neutrophils (%) (Auto) 83.3 % (45.0-75.0) H Lymphocytes (%) (Auto) 10.4 % (20.0-45.0) L Monocytes (%) (Auto) 5.9 % (1.0-10.0) Eosinophils (%) (Auto) 0.1 % (0.0-3.0) Basophils (%) (Auto) 0.3 % (0.0-2.0) Arterial Blood pH 7.442 (7.350-7.450) Arterial Blood Partial Pressure CO2 50.4 mmHg (35.0-45.0) H Arterial Blood Partial Pressure O2 62.4 mmHg (75.0-100.0) L Arterial Blood HCO3 33.6 mmol/L (22.0-26.0) H Arterial Blood Oxygen Saturation 91.6 % (95-100) L Arterial Blood Base Excess 8.3 (-2-2) H Juan Alberto Test Positive Height (Feet): 5 Height (Inches): 8.00 Weight (Pounds): 173 General Appearance: no apparent distress Cardiovascular: normal rate Respiratory/Chest: normal breath sounds, no respiratory distress Abdominal Exam: normal bowel sounds, non tender, soft, GT site Extremities: non-tender Michelle Samuel SHUTTLE FILLER Sep 24, 2018 08:32
--- NOTE | 2018-09-24 08:34 | General Progress Note ---
Assessment/Plan Problem List: (1) Atrial fibrillation and flutter ICD Codes: I48.91 - Unspecified atrial fibrillation; I48.92 - Unspecified atrial flutter SNOMED: 774757111 (2) CHF (congestive heart failure) ICD Codes: I50.9 - Heart failure, unspecified SNOMED: 31199403 (3) Pancreatitis ICD Codes: K85.90 - Acute pancreatitis without necrosis or infection, unspecified SNOMED: 98697453 (4) CVA (cerebral vascular accident) ICD Codes: I63.9 - CVA (cerebral vascular accident) SNOMED: 775059454 (5) Abdominal distension ICD Codes: R14.0 - Abdominal distension (gaseous) SNOMED: 14309262 (6) Umbilical hernia ICD Codes: K42.9 - Umbilical hernia without obstruction or gangrene SNOMED: 701859339 Qualifiers: Qualified Codes: K42.9 - Umbilical hernia without obstruction or gangrene Status: stable, unchanged Assessment/Plan: liver mass abdominal distention episodic hypertension and tachycardia abdominal distention, slightly improved urinary retention ascites s/p tap fever acute on chronic renal failure fever possible sepsis shock PLAN CXR noted; concern of capillary leak empiric antibiotics pancultures avoid nephrotoxic agents maintain feeds as able and if tolerated; gt was clogged but now working general surgery reviewed and noted cardiology noted ID called monitor for change and recommend liver masses previously - defer biopsy and discuss; patient too ill monitor TF and resume when able monitor urine output remains acute with multiorgan failure medications/laboratory data/nursing notes/ICU care reviewed in detail note reviewed and edited care discussed with RN and RT ICU time spent 42 minutes Subjective ROS Limited/Unobtainable: Yes Allergies: Coded Allergies: No Known Allergies (Verified , 06/07/08) Subjective renal function not improved decompensated overnight hypotensive febrile moved to ICU care reviewed in detail Objective Last 24 Hour Vital Signs Date Time Temp Pulse Resp B/P (MAP) Pulse Ox O2 Delivery O2 Flow Rate FiO2 09/24/18 08:19 102 22 98 Venturi Mask 14.0 55 09/24/18 08:00 Venturi Mask 14.0 09/24/18 07:54 125 35 80 Venturi Mask 14.0 55 09/24/18 07:50 95 Venturi Mask 14.0 55 09/24/18 05:27 102.6 120 24 82/49 (60) 94 09/24/18 05:03 102.6 09/24/18 04:00 102.2 128 24 96/44 (61) 93 09/24/18 03:59 125 28 93 Venturi Mask 14.0 55 09/24/18 03:50 125 35 80 Nasal Cannula 3.0 32 09/24/18 00:00 101.6 103 19 129/42 (71) 92 09/23/18 22:50 100 22 96 Nasal Cannula 3.0 32 09/23/18 22:36 95 20 93 Nasal Cannula 3.0 32 09/23/18 22:36 93 Nasal Cannula 3.0 32 09/23/18 22:32 Nasal Cannula 2.0 28 09/23/18 22:32 Nasal Cannula 2.0 28 09/23/18 21:50 97.7 108 20 116/47 (70) 90 09/23/18 21:00 Nasal Cannula 2.0 09/23/18 20:59 103 104/43 09/23/18 20:57 101.6 103 15 104/43 (63) 90 09/23/18 16:00 98.9 107 20 122/46 (71) 94 09/23/18 15:10 105 20 99 Nasal Cannula 2.0 28 09/23/18 15:02 101 20 94 Nasal Cannula 2.0 28 09/23/18 12:00 98.1 129 20 120/55 (76) 94 09/23/18 11:08 112 20 98 Nasal Cannula 2.0 28 09/23/18 11:08 129 133/63 09/23/18 11:00 129 20 95 Nasal Cannula 2.0 28 09/23/18 09:00 Nasal Cannula 2.0 Intake and Output 09/23/18 09/24/18 19:00 07:00 Intake Total 235 ml Output Total 800 ml 600 ml Balance -565 ml -600 ml Intake Free Water 100 ml Tube Feeding 135 ml Output Urine Total 800 ml 600 ml # Voids 2 # Bowel Movements 1 2 Laboratory Tests 09/24/18 07:50: White Blood Count 11.5H, Red Blood Count 3.33L, Hemoglobin 10.1L, Hematocrit 32.1L, Mean Corpuscular Volume 96, Mean Corpuscular Hemoglobin 30.3, Mean Corpuscular Hemoglobin Concent 31.4L, Red Cell Distribution Width 14.9H, Platelet Count 225, Mean Platelet Volume 5.8L, Neutrophils (%) (Auto) 83.3H, Lymphocytes (%) (Auto) 10.4L, Monocytes (%) (Auto) 5.9, Eosinophils (%) (Auto) 0.1, Basophils (%) (Auto) 0.3 09/24/18 07:58: Arterial Blood pH 7.442, Arterial Blood Partial Pressure CO2 50.4H, Arterial Blood Partial Pressure O2 62.4L, Arterial Blood HCO3 33.6H, Arterial Blood Oxygen Saturation 91.6L, Arterial Blood Base Excess 8.3H, Juan Alberto Test Positive Height (Feet): 5 Height (Inches): 8.00 Weight (Pounds): 173 Objective WDWN acutely ill reduced breath sounds bilaterally with some rhonchi S1S2RR tachy without MRG NABS;Gt in place; minimally distended; no HSM no CC; noted edema nonfocal skin exam noted confused with reduced LOC reviewed and examined Dustin Mary MD Sep 24, 2018 08:34
[2018-09-24] MEDS: Metoprolol 25mg tab ORAL SCH ×2 (09:00→20:53)
[2018-09-24] MEDS ORDERED: Metoclopramide 10mg/2ml Inj IVP PRN (09:00)
[2018-09-24] MEDS: Docusate 100mg/10ml Liq GT SCH ×3 (09:00→17:36)
[2018-09-24] MEDS ORDERED: Levemir Flexpen SUBQ SCH (09:00)
[2018-09-24] MEDS: Heparin 5000 units/ml inj SUBQ SCH ×2 (09:01→20:55)
[2018-09-24] MEDS: Vitamin D 1000 IU Tab GT SCH ×2 (09:17→17:21)
[2018-09-24] MEDS: Lactulose 10gm/15ml UDC GT SCH ×4 (09:17→17:35)
--- NOTE | 2018-09-24 09:20 | NUR ---
NURSE NOTES: Dr. Mary here to assess the patient. BP 93/31, Afib HR 110s. Notified MD that NS was not given. Per , Okay to give 2400ml NS now. NS bolus running via left wrist 24G.
[2018-09-24] MEDS: Artificial Tears 1.4% Op Soln BOTH EYES SCH ×2 (10:00→20:51)
[2018-09-24] MEDS: Levemir Flexpen SUBQ SCH (10:01)
[2018-09-24] MEDS: Piperacillin/Tazobactam 3.375 GM in NS 110 ML IVPB SCH ×3 (10:01→23:37)
--- NOTE | 2018-09-24 10:30 | NUR ---
NURSE NOTES: Gtube changed by JAMESON Coffey at bedside, size 24F. Okay to resume GTF, glucerna 1.5, start at 20ml/hr and increase, goal rate 45ml/hr.
[2018-09-24] MEDS ORDERED: Vancomycin 275 ML IVPB ONE (12:00)
[2018-09-24] MEDS ORDERED: Vancomycin 1.25gm Premix IVPB ONE (12:00)
--- NOTE | 2018-09-24 12:12 | NUR ---
NURSE NOTES: Patient is awake, opens eyes spontaneously. Nasotracheal suction performed, large white/bloody secretion noted. On venturi mask 55%, 14L. O2 sat 96%.
--- NOTE | 2018-09-24 13:00 | NUR ---
NURSE NOTES: Patient is tolerating tube feeding, 15ml/hr residual noted. HOB kept elevated. no leakage noted.
--- NOTE | 2018-09-24 13:46 | NUR ---
SPRING ASSEMBLERASSEMBLY PERSON SI: SBO S/P PARACENTESIS, RESP DISTRESS T. 102.6 HR 128 RR 35 B/P82/49 VM @ 55% PH 7.44 PCO2 50.4 PO2 62.4 HCO3 33.6 O2 SAT 91.6 WBC 11.5 K 5.3 BUN 88 CR 1.7 CXR= PENDING IS: VANCO IV ZOSYN IV LOPRESSOR ICU STATUS
--- NOTE | 2018-09-24 13:54 | NUR ---
NURSE NOTES: Patient is awake, alert and orientedx3. On room air, O2 sat 100%. no acute distress noted. Addendum: 09/24/18 at 1417 by SINAN WHALEY RN wrong patient
--- NOTE | 2018-09-24 13:59 | Surgery Progress Note ---
Surgery Progress Note Subjective Additional Comments Patient has deteriorated and is now in the intensive care unit for hypotension and tachycardia. Currently patient hemodynamically stable Abdominal exam distended and fluid-filled danna g tube site cellulitis Objective Last 24 Hour Vital Signs Date Time Temp Pulse Resp B/P (MAP) Pulse Ox O2 Delivery O2 Flow Rate FiO2 09/24/18 13:00 110 22 111/44 (66) 96 09/24/18 12:00 112 09/24/18 12:00 98.7 109 24 109/35 (59) 96 09/24/18 12:00 Venturi Mask 14.0 09/24/18 11:34 111 29 97 Venturi Mask 14.0 55 09/24/18 11:16 110 21 97 Venturi Mask 14.0 55 09/24/18 11:00 111 26 114/43 (66) 99 09/24/18 10:00 114 20 111/59 (76) 99 09/24/18 09:00 115 21 100/36 (57) 98 09/24/18 08:19 102 22 98 Venturi Mask 14.0 55 09/24/18 08:00 109 09/24/18 08:00 99.0 105 23 110/36 (60) 99 09/24/18 08:00 Venturi Mask 14.0 09/24/18 07:54 125 35 80 Venturi Mask 14.0 55 09/24/18 07:50 95 Venturi Mask 14.0 55 09/24/18 07:00 106 22 96/26 (49) 95 09/24/18 05:27 102.6 120 24 82/49 (60) 94 09/24/18 05:03 102.6 09/24/18 04:00 102.2 128 24 96/44 (61) 93 09/24/18 03:59 125 28 93 Venturi Mask 14.0 55 09/24/18 03:50 125 35 80 Nasal Cannula 3.0 32 09/24/18 00:00 101.6 103 19 129/42 (71) 92 09/23/18 22:50 100 22 96 Nasal Cannula 3.0 32 09/23/18 22:36 95 20 93 Nasal Cannula 3.0 32 09/23/18 22:36 93 Nasal Cannula 3.0 32 09/23/18 22:32 Nasal Cannula 2.0 28 09/23/18 22:32 Nasal Cannula 2.0 28 09/23/18 21:50 97.7 108 20 116/47 (70) 90 09/23/18 21:00 Nasal Cannula 2.0 09/23/18 20:59 103 104/43 09/23/18 20:57 101.6 103 15 104/43 (63) 90 09/23/18 16:00 98.9 107 20 122/46 (71) 94 09/23/18 15:10 105 20 99 Nasal Cannula 2.0 28 09/23/18 15:02 101 20 94 Nasal Cannula 2.0 28 I&O Intake and Output 09/23/18 09/24/18 19:00 07:00 Intake Total 235 ml Output Total 800 ml 670 ml Balance -565 ml -670 ml Intake Free Water 100 ml Tube Feeding 135 ml Output Urine Total 800 ml 670 ml # Voids 2 # Bowel Movements 1 2 Cardiovascular: RSR Respiratory: clear Abdomen: soft, distended, present bowel sounds Extremities: no cyanosis, other Laboratory Tests Test 09/24/18 07:50 09/24/18 07:58 White Blood Count 11.5 K/UL (4.8-10.8) H Red Blood Count 3.33 M/UL (4.70-6.10) L Hemoglobin 10.1 G/DL (14.2-18.0) L Hematocrit 32.1 % (42.0-52.0) L Mean Corpuscular Volume 96 FL (80-99) Mean Corpuscular Hemoglobin 30.3 PG (27.0-31.0) Mean Corpuscular Hemoglobin Concent 31.4 G/DL (32.0-36.0) L Red Cell Distribution Width 14.9 % (11.6-14.8) H Platelet Count 225 K/UL (150-450) Mean Platelet Volume 5.8 FL (6.5-10.1) L Neutrophils (%) (Auto) 83.3 % (45.0-75.0) H Lymphocytes (%) (Auto) 10.4 % (20.0-45.0) L Monocytes (%) (Auto) 5.9 % (1.0-10.0) Eosinophils (%) (Auto) 0.1 % (0.0-3.0) Basophils (%) (Auto) 0.3 % (0.0-2.0) Arterial Blood pH 7.442 (7.350-7.450) Arterial Blood Partial Pressure CO2 50.4 mmHg (35.0-45.0) H Arterial Blood Partial Pressure O2 62.4 mmHg (75.0-100.0) L Arterial Blood HCO3 33.6 mmol/L (22.0-26.0) H Arterial Blood Oxygen Saturation 91.6 % (95-100) L Arterial Blood Base Excess 8.3 (-2-2) H Juan Alberto Test Positive Plan Problems: (1) Abdominal distension Assessment & Plan: improved tolerating diet exam unchanged with fluid but no sbo possible declining liver function with declining real function abdomen becoming distended again likely fluid filled will repeat US (2) Malnutrition Assessment & Plan: Evolving DTPI sacrum. Base of wound has 100% soft necrosis ( L)2.5cm x (W)3.2cm with surrounding non-blanchable erythema with induration noted. (L)6.5cm x(W)8cm. Erythema noted to scrotum . Non-blanchable erythema with fluctuance L heel. Non-blanchable erythema without fluctuance R heel. G site erythematous with denuded skin. Surrounding adhesive related skin tears noted to surrounding skin with small amt sanguineous exudate.Area gentlyu cleansed with soap and water .Pat dried. Zinc Oxide paste applied to GT site and surrounding skin damage . 4 x $ drain gauze appied around Gt site without tape. Recommended to primary nurse to avoid taping gauze around Gt . Tx.Plan: Cleanse Sacral wound with Saline. Apply Therahoney. Apply Moisture Barrier Periwound. Cover with Optifoam drsg. Change every 3 days and prn. Apply Moisture Barrier Paste to Bilat groin and scrotum with each incontinence care. Gently cleanse GT site with Soap and water. Pat dry. Apply Zinc Oxide paste daily and prn.Place 4x4 gauze around GT. Do Not Tape Gauze. Apply Cavilon Skin Barrier to both heels. Cover each heel with Optifoam drsg. Change every 7 days and prn. APM/WIL Mattress. Reposition at least every 2hours or as tolerated. Off-load heels with pillow. Jesse Cash Sep 24, 2018 13:59
--- NOTE | 2018-09-24 14:00 | NUR ---
NURSE NOTES: stopped GTF for abd USS, kept npo. USS tech notified
--- NOTE | 2018-09-24 14:21 | NUR ---
Social Service Note SW spoke with Dr. Mary regarding the plan of care. Patient transferred to ICU due to change of condition. SW left a message for patient's dgt Carolina Carney [phone] to discuss plan of care. No return call at this time.
--- NOTE | 2018-09-24 15:49 | NUR ---
NURSE NOTES: Called Dr. Richards and informed that pt noted with Afib with HR 110-120s. EKG ordered.
--- NOTE | 2018-09-24 15:49 | Nephrology Progress Note ---
Assessment/Plan Plan Sepsis MARIXA worsening GFR. Monitor Labs. Subjective Subjective In ICU. Objective Objective Last 24 Hour Vital Signs Date Time Temp Pulse Resp B/P (MAP) Pulse Ox O2 Delivery O2 Flow Rate FiO2 09/24/18 15:00 104 26 120/54 (76) 97 09/24/18 14:00 111 20 104/47 (66) 99 09/24/18 13:00 110 22 111/44 (66) 96 09/24/18 12:00 112 09/24/18 12:00 98.7 109 24 109/35 (59) 96 09/24/18 12:00 Venturi Mask 14.0 09/24/18 11:34 111 29 97 Venturi Mask 14.0 55 09/24/18 11:16 110 21 97 Venturi Mask 14.0 55 09/24/18 11:00 111 26 114/43 (66) 99 09/24/18 10:00 114 20 111/59 (76) 99 09/24/18 09:00 115 21 100/36 (57) 98 09/24/18 08:19 102 22 98 Venturi Mask 14.0 55 09/24/18 08:00 109 09/24/18 08:00 99.0 105 23 110/36 (60) 99 09/24/18 08:00 Venturi Mask 14.0 09/24/18 07:54 125 35 80 Venturi Mask 14.0 55 09/24/18 07:50 95 Venturi Mask 14.0 55 09/24/18 07:00 106 22 96/26 (49) 95 09/24/18 05:27 102.6 120 24 82/49 (60) 94 09/24/18 05:03 102.6 09/24/18 04:00 102.2 128 24 96/44 (61) 93 09/24/18 03:59 125 28 93 Venturi Mask 14.0 55 09/24/18 03:50 125 35 80 Nasal Cannula 3.0 32 09/24/18 00:00 101.6 103 19 129/42 (71) 92 09/23/18 22:50 100 22 96 Nasal Cannula 3.0 32 09/23/18 22:36 95 20 93 Nasal Cannula 3.0 32 09/23/18 22:36 93 Nasal Cannula 3.0 32 09/23/18 22:32 Nasal Cannula 2.0 28 09/23/18 22:32 Nasal Cannula 2.0 28 09/23/18 21:50 97.7 108 20 116/47 (70) 90 09/23/18 21:00 Nasal Cannula 2.0 09/23/18 20:59 103 104/43 09/23/18 20:57 101.6 103 15 104/43 (63) 90 09/23/18 16:00 98.9 107 20 122/46 (71) 94 Intake and Output 09/23/18 09/24/18 19:00 07:00 Intake Total 235 ml Output Total 800 ml 670 ml Balance -565 ml -670 ml Intake Free Water 100 ml Tube Feeding 135 ml Output Urine Total 800 ml 670 ml # Voids 2 # Bowel Movements 1 2 Laboratory Tests 09/24/18 07:50: White Blood Count 11.5H, Red Blood Count 3.33L, Hemoglobin 10.1L, Hematocrit 32.1L, Mean Corpuscular Volume 96, Mean Corpuscular Hemoglobin 30.3, Mean Corpuscular Hemoglobin Concent 31.4L, Red Cell Distribution Width 14.9H, Platelet Count 225, Mean Platelet Volume 5.8L, Neutrophils (%) (Auto) 83.3H, Lymphocytes (%) (Auto) 10.4L, Monocytes (%) (Auto) 5.9, Eosinophils (%) (Auto) 0.1, Basophils (%) (Auto) 0.3 09/24/18 07:58: Arterial Blood pH 7.442, Arterial Blood Partial Pressure CO2 50.4H, Arterial Blood Partial Pressure O2 62.4L, Arterial Blood HCO3 33.6H, Arterial Blood Oxygen Saturation 91.6L, Arterial Blood Base Excess 8.3H, Juan Alberto Test Positive Height (Feet): 5 Height (Inches): 8.00 Weight (Pounds): 173 Objective Confused. NAD CV RR Lungs B ronchi Abd. SNT. BS + E No CCE Ifrah Gorman MD Sep 24, 2018 15:49
--- NOTE | 2018-09-24 16:24 | NUR ---
NURSE NOTES: Dr. Richards made aware of EKG. aware that PO metoprolol was not given in am due to low BP. Metoprolol 10mg IVPG x1 ordered. Per , hold transfer. MD to put parameters for PO metoprolol later.
--- NOTE | 2018-09-24 16:50 | NUR ---
NURSE NOTES: Zosyn has not been delivered by pharmacy, will administer as soon as delivered.
[2018-09-24] MEDS ORDERED: Metoprolol Tartrate 10 MG in D5W 55 ML IVPB SCH (17:00)
--- NOTE | 2018-09-24 17:00 | Consultation ---
DATE OF CONSULTATION: 09/24/2018 INFECTIOUS DISEASES CONSULTATION CONSULTING PHYSICIAN: Clari Whitten M.D. REFERRING PHYSICIAN: Dustin Mary M.D. REASON FOR CONSULTATION: Possible septic shock. HISTORY OF PRESENTING ILLNESS: This is an 78-year-old gentleman with history of dysphagia, previous G-tube placement, dementia, CVA, who came in with abdominal distention and was found to have fecal impaction. He has a G-tube. Now, there is a concern for septic shock and an Infectious Diseases consultation has been obtained for antibiotics. PAST MEDICAL HISTORY: 1. History of dysphagia, status post G-tube placement. 2. Dementia. 3. CVA. 4. Congestive heart failure. 5. Hypertension. 6. Diabetes. 7. Atrial fibrillation. 8. Chronic pancreatitis. SOCIAL HISTORY: Unknown. FAMILY HISTORY: Unknown. REVIEW OF SYSTEMS: Unable to obtain currently. MEDICATIONS: As an inpatient, the patient is on Aricept, polyethylene glycol, IV vancomycin, Artificial Tears, docusate, subcutaneous heparin, lactulose, insulin, Reglan, metoprolol, vitamin D, Tylenol, Zosyn, mineral oil, albuterol, ipratropium, hydralazine, and zinc oxide. ALLERGIES: No known drug allergies. PHYSICAL EXAMINATION: VITAL SIGNS: Temperature of 99, T-max of 102.6, pulse of 110, respiratory rate 21, blood pressure 111/59, and O2 saturation of 97%. HEENT: Pupils equally reactive to light and accommodation. Mouth appears clean without thrush. NECK: Supple. No adenopathy. No JVD. CARDIOVASCULAR: Regular rate and rhythm. No murmurs. LUNGS: Clear to auscultation bilaterally. No crackles. No wheezes. ABDOMEN: Soft and nontender. G-tube site appears clean. EXTREMITIES: No cyanosis, no clubbing, no edema. LABORATORY AND DIAGNOSTIC DATA: White count of 11.5, hemoglobin 10.1, hematocrit 32.1, MCV 96, platelet count of 225 with neutrophils of 83%. Sodium 135, potassium 5.3, chloride 110, bicarb 30, BUN 88, creatinine 1.7, glucose 235, calcium 9.9. UA showing 0-2 white cells. Hepatitis A IgM is negative. Hepatitis B surface antigen negative. Hepatitis B core IgM is negative. Hepatitis C antibody is negative. HIV is negative. Abdominal fluid cultures are negative. Rectal swab was positive for VRE. Nasal swab was positive for MRSA. Chest x-ray showing stable right and increased left-sided infiltrate, improving right-sided pleural effusion. Abdominal x-ray showing no acute process. Renal ultrasound showing negative for hydronephrosis. CT abdomen and pelvis on 09/03/2018 large heterogenous mass in the right lobe of the liver, suspicious for neoplasm, ascites, small pericardial effusion, atelectasis noted, proctocolitis noted. ASSESSMENT: This is an 78-year-old gentleman with history of diabetes, hypertension, who now comes in and was found to have, 1. Possible aspiration pneumonia. 2. Liver mass. 3. Fever, is improving. PLAN: 1. Continue IV vancomycin and Zosyn. 2. We will follow up cultures and adjust antibiotics accordingly. I would like to thank, Dr. Mary for this consultation. Clari Whitten M.D. DR: HAN JOB#: [id number] CC: Dustin Mary M.D.; Fax#: [phone]
--- NOTE | 2018-09-24 17:06 | Hematology/Onc Progress Note ---
Assessment/Plan Assessment/Plan Assessment and Recs # Liver mass - large heterogeneous mass in the right lobe of the liver suspicious for malignant neoplasm --> imaging has been reviewed and c/w likely malignancy --> as per Gi recs, defer tumor biopsy, has been present prior admission --> treatment once have results of primary --> imaging as needed r/o ascites --> tumor markers reviewed are wnl # Anemia of chronic disease due to underlying chronic medical issues, multifactorial --> Anemia workup reviewed, rule out gi bleed, ferritin is 118 --> No evidence of hemolysis is noted, peripheral smear has been reviewed. --> Hgb goal >7. Transfuse prn. --> Epogen or iron at this time is not particularly indicated --> Medications have been reviewed --> improved trend 10-->11-->12-->11.8-->11.5-->11.4-->11.4-->10.5 # Hypercalcemia - on admission elev, due to likely dehydration --> Ca has improved, on ivf --> on IVF also for hypernatremia --> per renal recs # Fecal impaction/constipation --> on colace, senna as per gi # Abdominal distension --> improved mildly, per gi # DVT ppx with heparin sq The timing of this note does not necessarily reflect the time of the patient was seen. GREATLY APPRECIATE CONSULTATION. Subjective Constitutional: Denies: no symptoms, chills, fever, malaise, weakness, other HEENT: Denies: no symptoms, eye pain, blurred vision, tearing, double vision, ear pain, ear discharge, nose pain, nose congestion, throat pain, throat swelling, mouth pain, mouth swelling, other Cardiovascular: Denies: no symptoms, chest pain, edema, irregular heart rate, lightheadedness, palpitations, syncope, other Genitourinary: Denies: no symptoms, burning, discharge, frequency, flank pain, hematuria, incontinence, pain, urgency, other Neurologic/Psychiatric: Denies: no symptoms, anxiety, depressed, emotional problems, headache, numbness, paresthesia, pre-existing deficit, seizure, tingling, tremors, weakness, other Endocrine: Denies: no symptoms, excessive sweating, flushing, intolerance to cold, intolerance to heat, increased hunger, increased thirst, increased urine, unexplained weight gain, unexplained weight loss, other Allergies: Coded Allergies: No Known Allergies (Verified , 06/07/08) Subjective 09/10: no bleeding, no night sweats, no events otherwise, labs pending 09/11: liver biopsy cancelled, no events, tumor markers neg 09/12: no events, no bleeding, h/h reviewed, no f/c 09/13: patient being turned every 2 hrs, seen by gi 09/14: no events, still with abd pain, imaging per gi 09/16: arousable, nonverbal, no events reported 09/17: 5.5L of fluid removed via para, no events otherwise, no f/c 09/18: seen by pulm, gi, no events, wbc is 11.3 09/19: no f/c, no events reported, on heparin sq dvt ppx 09/20: resting in bed, no acute events labs reviewed. 09/21: nonverbal, no acute events, labs reviewed 09/22: non verbal; on nc 2 L, no sign of distress and shortness of breath, cbc for tomorrow morning 09/23: on 2l nc, no fevers or chills reported, labs were reviewed 09/24: no fevers or chills, on oxygen, no bleeding noted, hgb 10 Objective Objective Current Medications Medications (Trade) Dose Ordered Sig/Reagan Route PRN Reason Start Time Stop Time Status Last Admin Dose Admin Acetaminophen (Tylenol) 650 mg Q4H PRN GT Mild Pain/Temp > 100.5 09/24/18 08:30 10/09/18 16:29 Albuterol/ Ipratropium (Albuterol/ Ipratropium) 3 ml Q4HRT HHN 09/24/18 07:00 09/26/18 18:59 09/24/18 16:06 Artificial Tears (Akwa-Tears) 1 drop EVERY 12 HOURS BOTH EYES 09/24/18 09:00 10/15/18 20:59 09/24/18 10:00 Dextrose (Dextrose 50%) 25 ml Q30M PRN IV Hypoglycemia 09/24/18 07:00 10/03/18 21:29 Dextrose (Dextrose 50%) 50 ml Q30M PRN IV Hypoglycemia 09/24/18 07:00 10/03/18 21:29 Docusate Sodium (Colace) 100 mg BID GT 09/24/18 09:00 10/04/18 08:59 Donepezil HCl (Aricept) 10 mg BEDTIME GT 09/24/18 21:00 10/04/18 20:59 Heparin Sodium (Porcine) (Heparin 5000 units/ml) 5,000 units EVERY 12 HOURS SUBQ 09/24/18 09:00 10/04/18 08:59 09/24/18 09:01 Hydralazine HCl (Apresoline) 25 mg Q6H PRN GT For High Blood Pressure 09/24/18 07:00 10/09/18 06:59 Insulin Aspart (NovoLOG) EVERY 6 HOURS SUBQ 09/24/18 07:00 10/10/18 06:59 09/24/18 12:21 Insulin Detemir (Levemir) 10 units DAILY SUBQ 09/24/18 09:00 10/24/18 08:59 09/24/18 10:01 Lactulose (Cephulac) 10 gm THREE TIMES A DAY GT 09/24/18 09:00 10/08/18 12:59 09/24/18 12:19 Metoclopramide HCl (Reglan) 5 mg Q8H PRN IVP Nausea & Vomiting 09/24/18 09:00 10/10/18 08:59 Metoprolol Tartrate (Lopressor) 25 mg Q12HR ORAL 09/24/18 09:00 10/23/18 20:59 Metoprolol Tartrate 10 mg/ Dextrose 65 ml @ 130 mls/hr ONCE IVPB 09/24/18 17:00 09/24/18 23:59 Mineral Oil (Mineral Oil) 30 ml DAILYPRN PRN GT Constipation 09/24/18 08:00 10/09/18 07:59 Piperacillin Sod/ Tazobactam Sod 3.375 gm/Sodium Chloride 110 ml @ 27.5 mls/hr Q8HR@0000,0800,1600 IVPB 09/24/18 08:00 09/29/18 07:59 09/24/18 10:01 Polyethylene Glycol (Miralax) 17 gm BEDTIME GT 09/24/18 21:00 10/06/18 20:59 Vancomycin HCl (Vanco rx to dose) 1 ea DAILY PRN MISC Per rx protocol 09/24/18 09:00 10/24/18 05:59 Vitamin D (Vitamin D) 1,000 intlu TWICE A DAY GT 09/24/18 09:00 10/04/18 08:59 09/24/18 09:17 Zinc Oxide (Desitin) 1 applic EVERY 8 HOURS TOPIC 09/24/18 07:00 10/08/18 06:59 09/24/18 13:38 Last 24 Hour Vital Signs Date Time Temp Pulse Resp B/P (MAP) Pulse Ox O2 Delivery O2 Flow Rate FiO2 09/24/18 16:11 113 29 96 Venturi Mask 14.0 55 09/24/18 16:05 125 31 96 Venturi Mask 14.0 55 09/24/18 16:00 131 09/24/18 16:00 Venturi Mask 14.0 09/24/18 16:00 126 20 113/52 (72) 97 09/24/18 15:00 104 26 120/54 (76) 97 09/24/18 14:00 111 20 104/47 (66) 99 09/24/18 13:00 110 22 111/44 (66) 96 09/24/18 12:00 112 09/24/18 12:00 98.7 109 24 109/35 (59) 96 09/24/18 12:00 Venturi Mask 14.0 09/24/18 11:34 111 29 97 Venturi Mask 14.0 55 09/24/18 11:16 110 21 97 Venturi Mask 14.0 55 09/24/18 11:00 111 26 114/43 (66) 99 09/24/18 10:00 114 20 111/59 (76) 99 09/24/18 09:00 115 21 100/36 (57) 98 09/24/18 08:19 102 22 98 Venturi Mask 14.0 55 09/24/18 08:00 109 09/24/18 08:00 99.0 105 23 110/36 (60) 99 09/24/18 08:00 Venturi Mask 14.0 09/24/18 07:54 125 35 80 Venturi Mask 14.0 55 09/24/18 07:50 95 Venturi Mask 14.0 55 09/24/18 07:00 106 22 96/26 (49) 95 09/24/18 05:27 102.6 120 24 82/49 (60) 94 09/24/18 05:03 102.6 09/24/18 04:00 102.2 128 24 96/44 (61) 93 09/24/18 03:59 125 28 93 Venturi Mask 14.0 55 09/24/18 03:50 125 35 80 Nasal Cannula 3.0 32 09/24/18 00:00 101.6 103 19 129/42 (71) 92 09/23/18 22:50 100 22 96 Nasal Cannula 3.0 32 09/23/18 22:36 95 20 93 Nasal Cannula 3.0 32 09/23/18 22:36 93 Nasal Cannula 3.0 32 09/23/18 22:32 Nasal Cannula 2.0 28 09/23/18 22:32 Nasal Cannula 2.0 28 09/23/18 21:50 97.7 108 20 116/47 (70) 90 09/23/18 21:00 Nasal Cannula 2.0 09/23/18 20:59 103 104/43 09/23/18 20:57 101.6 103 15 104/43 (63) 90 09/23/18 16:00 98.9 107 20 122/46 (71) 94 09/23/18 15:10 105 20 99 Nasal Cannula 2.0 28 09/23/18 15:02 101 20 94 Nasal Cannula 2.0 28 09/23/18 12:00 98.1 129 20 120/55 (76) 94 09/23/18 11:08 112 20 98 Nasal Cannula 2.0 28 09/23/18 11:08 129 133/63 09/23/18 11:00 129 20 95 Nasal Cannula 2.0 28 09/23/18 09:00 Nasal Cannula 2.0 09/23/18 08:00 97.9 124 20 133/63 (86) 99 09/23/18 07:56 111 20 99 Nasal Cannula 2.0 28 09/23/18 07:42 115 20 97 Nasal Cannula 2.0 28 09/23/18 07:41 97 Nasal Cannula 2.0 28 09/23/18 04:00 98.5 120 20 113/55 (74) 95 09/23/18 03:50 28 09/23/18 03:50 96 18 99 Nasal Cannula 2.0 28 09/23/18 03:39 94 18 97 Nasal Cannula 2.0 28 09/23/18 00:00 98.6 116 21 123/55 (77) 95 09/22/18 23:33 28 09/22/18 23:33 98 18 100 Nasal Cannula 2.0 28 09/22/18 23:26 96 18 97 Nasal Cannula 2.0 28 09/22/18 21:00 Nasal Cannula 2.0 09/22/18 20:00 98.6 112 20 98/58 (71) 95 09/22/18 19:59 86 18 99 Nasal Cannula 2.0 28 09/22/18 19:59 28 09/22/18 19:50 95 Nasal Cannula 2.0 28 09/22/18 19:48 82 18 95 Nasal Cannula 2.0 28 Intake and Output 09/23/18 09/24/18 19:00 07:00 Intake Total 235 ml Output Total 800 ml 670 ml Balance -565 ml -670 ml Intake Free Water 100 ml Tube Feeding 135 ml Output Urine Total 800 ml 670 ml # Voids 2 # Bowel Movements 1 2 Labs Test 09/23/18 07:04 09/24/18 07:50 09/24/18 07:58 White Blood Count 10.1 K/UL (4.8-10.8) 11.5 K/UL (4.8-10.8) Red Blood Count 3.67 M/UL (4.70-6.10) 3.33 M/UL (4.70-6.10) Hemoglobin 11.1 G/DL (14.2-18.0) 10.1 G/DL (14.2-18.0) Hematocrit 35.5 % (42.0-52.0) 32.1 % (42.0-52.0) Mean Corpuscular Volume 97 FL (80-99) 96 FL (80-99) Mean Corpuscular Hemoglobin 30.3 PG (27.0-31.0) 30.3 PG (27.0-31.0) Mean Corpuscular Hemoglobin Concent 31.3 G/DL (32.0-36.0) 31.4 G/DL (32.0-36.0) Red Cell Distribution Width 14.9 % (11.6-14.8) 14.9 % (11.6-14.8) Platelet Count 205 K/UL (150-450) 225 K/UL (150-450) Mean Platelet Volume 6.7 FL (6.5-10.1) 5.8 FL (6.5-10.1) Neutrophils (%) (Auto) 83.4 % (45.0-75.0) 83.3 % (45.0-75.0) Lymphocytes (%) (Auto) 10.5 % (20.0-45.0) 10.4 % (20.0-45.0) Monocytes (%) (Auto) 5.4 % (1.0-10.0) 5.9 % (1.0-10.0) Eosinophils (%) (Auto) 0.4 % (0.0-3.0) 0.1 % (0.0-3.0) Basophils (%) (Auto) 0.2 % (0.0-2.0) 0.3 % (0.0-2.0) Sodium Level 135 MMOL/L (136-145) Potassium Level 5.3 MMOL/L (3.5-5.1) Chloride Level 110 MMOL/L (98-107) Carbon Dioxide Level 30 MMOL/L (21-32) Anion Gap -5 mmol/L (5-15) Blood Urea Nitrogen 88 mg/dL (7-18) Creatinine 1.7 MG/DL (0.55-1.30) Estimat Glomerular Filtration Rate mL/min (>60) Glucose Level 235 MG/DL (74-106) Calcium Level 9.9 MG/DL (8.5-10.1) Arterial Blood pH 7.442 (7.350-7.450) Arterial Blood Partial Pressure CO2 50.4 mmHg (35.0-45.0) Arterial Blood Partial Pressure O2 62.4 mmHg (75.0-100.0) Arterial Blood HCO3 33.6 mmol/L (22.0-26.0) Arterial Blood Oxygen Saturation 91.6 % (95-100) Arterial Blood Base Excess 8.3 (-2-2) Juan Alberto Test Positive Height (Feet): 5 Height (Inches): 8.00 Weight (Pounds): 173 Objective Gen: well appearing, no apparent distress, alert Head: normocephalic EENT: PERRL/EOMI, normal ENT inspection Pulm: normal breath sounds, no respiratory distress. NC+ CV: rrr. no mgr GI: normal inspection, non tender, soft, normal bowel sounds, non-distended ++ gtube Rectal: deferred Gu: johnston++ Musculoskeletal: normal inspection, back normal Neurologic: normal inspection, alert, oriented x3, responsive Psychiatric: normal inspection, judgement/insight normal, memory normal Skin: normal inspection, normal color, no rash, warm/dry, palpation normal, well hydrated Fadi Vicente MD Sep 24, 2018 17:06
--- NOTE | 2018-09-24 17:50 | NUR ---
NURSE NOTES: Patient had a diarrhea x1. Colace not given. Patient was turned and repositioned. patient kept clean and dry. sacral dressing intact, clean and dry.
--- NOTE | 2018-09-24 18:20 | NUR ---
NURSE NOTES: Metoprolol 10mg given. patient awake, resting in bed. no acute distress noted. Afib with HR 80-low 100s noted on the engine monitor. BP 91/64.
--- NOTE | 2018-09-24 18:50 | NUR ---
NURSE NOTES: called Dr. Galicia, left a message regarding K level, awaiting for callback. Addendum: 09/24/18 at 1910 by SINAN WHALEY RN wrong patient
--- NOTE | 2018-09-24 19:20 | NUR ---
HAND-OFF: Report given to ISMAEL Biswas.
--- NOTE | 2018-09-24 19:30 | NUR ---
NURSE NOTES:Received pt very congested , tachycardic, incontinent of lg yellow brownish soft very fowl smelling stools. Pt respond to pain stimuli only.Afib 90-100s, vs V paced, bp stable afebrile. On 55% ventimadk RR 18-20/min. Schmid to gravity with moderate amt of katerina yellow urine, NPO at this time, awaiting for abdl JULIAN, Pt aso has stage 4 decub sacral area, covered wth Drsg dry and intact. - Suctioned lg amt of blood stained secretions, HOB kept elevated, watch for any resp. distress.
[2018-09-24] MEDS ORDERED: Donepezil 10mg tab GT SCH (21:00)
[2018-09-24] MEDS ORDERED: Miralax 17gm pkt GT SCH (21:00)
--- NOTE | 2018-09-24 21:30 | NUR ---
NURSE NOTES:Family at bedside- updated with pts, condition. Verbalized understanding. Had xi lg stools, complete bath with bed changed done. Will continue to monitor,
--- NOTE | 2018-09-24 23:30 | NUR ---
NURSE NOTES:Resumed GT fdg at 20ml/hr. HOB kept elevated. On aspiration precaution.
[2018-09-25] VITALS (20 sets, daily range): BP systolic 85–113; BP diastolic 31–86
--- NOTE | 2018-09-25 01:30 | NUR ---
NURSE NOTES:Pt had x1 lg soft yellowish stool. Cleaned up pt.
--- NOTE | 2018-09-25 02:30 | NUR ---
NURSE NOTES:Pt still on afib 100-110/min. Bp within normal range.
[2018-09-25] MEDS: Albuterol/Ipratropium 3ml neb HHN SCH ×6 (02:46→22:59)
--- NOTE | 2018-09-25 04:00 | Progress Note ---
DATE: 09/24/2018 CARDIOLOGY PROGRESS NOTE SUBJECTIVE: The patient remains in the intensive care unit. He continues to have episodes of rapid atrial fibrillation with tenuous blood pressure readings. Continue fluid challenges. PHYSICAL EXAMINATION: VITAL SIGNS: Blood pressure down to 66/38, heart rate 110, respiratory rate 18. LUNGS: Bilateral breath sounds. HEART: Irregularly irregular rhythm. Normal S1, paradoxically split S2. ABDOMEN: Soft with some distention. EXTREMITIES: Trace edema. LABORATORY AND DIAGNOSTIC DATA: ABG, 7.44, 50, 62. Hemoglobin is 10.1. Chest x-ray reveals bilateral infiltrates versus edema unchanged. IMPRESSION: 1. Paroxysmal atrial fibrillation with rapid ventricular response. 2. Labile blood pressure. 3. Intravascular volume depletion. 4. Healthcare acquired pneumonia. 5. Acute on chronic diastolic and systolic congestive heart failure. 6. Ascites. 7. Abdominal distention. 8. Permanent pacemaker. 9. Critical and guarded. PLAN: 1. Antimicrobials. 2. Respiratory hygiene. 3. Hold diuretic. 4. Maintain beta-blockade. 5. Advanced dose if blood pressure can tolerate. 6. May need to digitalize, although we will try to avoid in view of tenuous renal function and risk of dig toxicity. 7. ICU monitoring. 8. Antimicrobials per Infectious Disease consultants. Marcellus Richards M.D. : JOSE G JOB#: [id number] CC:
--- NOTE | 2018-09-25 04:30 | NUR ---
NURSE NOTES:Suctioned tn tk blood tinged secretions. 02 sat 97%.
[2018-09-25 05:58] LABS: HEMATOCRIT 30.2 % (42.0-52.0); HEMOGLOBIN 9.2 G/DL (14.2-18.0); MEAN CORPUSCULAR VOLUME 98 FL (80-99); PLATELET COUNT 193 K/UL (150-450); RED BLOOD COUNT 3.08 M/UL (4.70-6.10); RED CELL DISTRIBUTION WIDTH 14.8 % (11.6-14.8); WHITE BLOOD COUNT 9.8 K/UL (4.8-10.8)
[2018-09-25] MEDS: Desitin Rash Paste TOPIC SCH ×3 (06:20→21:39)
[2018-09-25] MEDS: NovoLOG Insulin Flexpen SUBQ SCH ×3 (06:21→18:00)
[2018-09-25 06:22] LABS: INR 1.1 (0.9-1.1)
--- NOTE | 2018-09-25 06:30 | NUR ---
NURSE NOTES:accucheck 138mg/dl with coverage.
[2018-09-25 06:31] LABS: ALANINE AMINOTRANSFERASE 16 U/L (12-78); ALBUMIN 0.9 G/DL (3.4-5.0); ALBUMIN/GLOBULIN RATIO 0.2 (1.0-2.7); ALKALINE PHOSPHATASE 281 U/L (46-116); AMYLASE 36 U/L (25-115); ANION GAP 3 mmol/L (5-15); ASPARTATE AMINO TRANSFERASE 38 U/L (15-37); BILIRUBIN,TOTAL 0.6 MG/DL (0.2-1.0); BLOOD UREA NITROGEN 83 mg/dL (7-18); CALCIUM 8.8 MG/DL (8.5-10.1); CARBON DIOXIDE 30 MMOL/L (21-32); CHLORIDE 117 MMOL/L (98-107); CREATININE 1.8 MG/DL (0.55-1.30); POTASSIUM 4.8 MMOL/L (3.5-5.1); SODIUM 150 MMOL/L (136-145)
--- NOTE | 2018-09-25 07:02 | Hematology/Onc Progress Note ---
Assessment/Plan Assessment/Plan Assessment and Recs # Liver mass - large heterogeneous mass in the right lobe of the liver suspicious for malignant neoplasm --> imaging has been reviewed and c/w likely malignancy --> as per Gi recs, defer tumor biopsy, has been present prior admission --> treatment once have results of primary --> imaging as needed r/o ascites --> tumor markers reviewed are wnl # Anemia of chronic disease due to underlying chronic medical issues, multifactorial --> Anemia workup reviewed, rule out gi bleed, ferritin is 118 --> No evidence of hemolysis is noted, peripheral smear has been reviewed. --> Hgb goal >7. Transfuse prn. --> Epogen or iron at this time is not particularly indicated --> Medications have been reviewed --> improved trend 10-->11-->12-->11.8-->11.5-->11.4-->11.4-->10.5-->9.2 # Hypercalcemia - on admission elev, due to likely dehydration --> Ca has improved, on ivf --> on IVF also for hypernatremia --> per renal recs # Fecal impaction/constipation --> on colace, senna as per gi # Abdominal distension --> improved mildly, per gi # DVT ppx with heparin sq The timing of this note does not necessarily reflect the time of the patient was seen. GREATLY APPRECIATE CONSULTATION. Subjective Constitutional: Denies: no symptoms, chills, fever, malaise, weakness, other Cardiovascular: Denies: no symptoms, chest pain, edema, irregular heart rate, lightheadedness, palpitations, syncope, other Gastrointestinal/Abdominal: Denies: no symptoms, abdomen distended, abdominal pain, black stools, tarry stools, blood in stool, constipated, diarrhea, difficulty swallowing, nausea, poor appetite, poor fluid intake, rectal bleeding , vomiting, other Genitourinary: Denies: no symptoms, burning, discharge, frequency, flank pain, hematuria, incontinence, pain, urgency, other Neurologic/Psychiatric: Denies: no symptoms, anxiety, depressed, emotional problems, headache, numbness, paresthesia, pre-existing deficit, seizure, tingling, tremors, weakness, other Endocrine: Denies: no symptoms, excessive sweating, flushing, intolerance to cold, intolerance to heat, increased hunger, increased thirst, increased urine, unexplained weight gain, unexplained weight loss, other Allergies: Coded Allergies: No Known Allergies (Verified , 06/07/08) Subjective 09/10: no bleeding, no night sweats, no events otherwise, labs pending 09/11: liver biopsy cancelled, no events, tumor markers neg 09/12: no events, no bleeding, h/h reviewed, no f/c 09/13: patient being turned every 2 hrs, seen by gi 09/14: no events, still with abd pain, imaging per gi 09/16: arousable, nonverbal, no events reported 09/17: 5.5L of fluid removed via para, no events otherwise, no f/c 09/18: seen by pulm, gi, no events, wbc is 11.3 09/19: no f/c, no events reported, on heparin sq dvt ppx 09/20: resting in bed, no acute events labs reviewed. 09/21: nonverbal, no acute events, labs reviewed 09/22: non verbal; on nc 2 L, no sign of distress and shortness of breath, cbc for tomorrow morning 09/23: on 2l nc, no fevers or chills reported, labs were reviewed 09/24: no fevers or chills, on oxygen, no bleeding noted, hgb 10 09/25: remains on abx, gt feeds ongoing, fluids were given, seen by cards Objective Objective Current Medications Medications (Trade) Dose Ordered Sig/Reagan Route PRN Reason Start Time Stop Time Status Last Admin Dose Admin Acetaminophen (Tylenol) 650 mg Q4H PRN GT Mild Pain/Temp > 100.5 09/24/18 08:30 10/09/18 16:29 Albuterol/ Ipratropium (Albuterol/ Ipratropium) 3 ml Q4HRT HHN 09/24/18 07:00 09/26/18 18:59 09/25/18 02:46 Artificial Tears (Akwa-Tears) 1 drop EVERY 12 HOURS BOTH EYES 09/24/18 09:00 10/15/18 20:59 09/24/18 20:51 Dextrose (Dextrose 50%) 25 ml Q30M PRN IV Hypoglycemia 09/24/18 07:00 10/03/18 21:29 Dextrose (Dextrose 50%) 50 ml Q30M PRN IV Hypoglycemia 09/24/18 07:00 10/03/18 21:29 Docusate Sodium (Colace) 100 mg BID GT 09/24/18 09:00 10/04/18 08:59 Donepezil HCl (Aricept) 10 mg BEDTIME GT 09/24/18 21:00 10/04/18 20:59 09/24/18 20:53 Heparin Sodium (Porcine) (Heparin 5000 units/ml) 5,000 units EVERY 12 HOURS SUBQ 09/24/18 09:00 10/04/18 08:59 09/24/18 20:55 Hydralazine HCl (Apresoline) 25 mg Q6H PRN GT For High Blood Pressure 09/24/18 07:00 10/09/18 06:59 Insulin Aspart (NovoLOG) EVERY 6 HOURS SUBQ 09/24/18 07:00 10/10/18 06:59 09/25/18 06:21 Insulin Detemir (Levemir) 10 units DAILY SUBQ 09/24/18 09:00 10/24/18 08:59 09/24/18 10:01 Lactulose (Cephulac) 10 gm THREE TIMES A DAY GT 09/24/18 09:00 10/08/18 12:59 09/24/18 17:35 Metoclopramide HCl (Reglan) 5 mg Q8H PRN IVP Nausea & Vomiting 09/24/18 09:00 10/10/18 08:59 Metoprolol Tartrate (Lopressor) 50 mg Q12HR ORAL 09/25/18 09:00 10/25/18 08:59 Mineral Oil (Mineral Oil) 30 ml DAILYPRN PRN GT Constipation 09/24/18 08:00 10/09/18 07:59 Piperacillin Sod/ Tazobactam Sod 3.375 gm/Sodium Chloride 110 ml @ 27.5 mls/hr Q8HR@0000,0800,1600 IVPB 09/24/18 08:00 09/29/18 07:59 09/24/18 23:37 Polyethylene Glycol (Miralax) 17 gm BEDTIME GT 09/24/18 21:00 10/06/18 20:59 Vancomycin HCl (Vanco rx to dose) 1 ea DAILY PRN MISC Per rx protocol 09/24/18 09:00 10/24/18 05:59 Vitamin D (Vitamin D) 1,000 intlu TWICE A DAY GT 09/24/18 09:00 10/04/18 08:59 09/24/18 17:21 Zinc Oxide (Desitin) 1 applic EVERY 8 HOURS TOPIC 09/24/18 07:00 10/08/18 06:59 09/25/18 06:20 Last 24 Hour Vital Signs Date Time Temp Pulse Resp B/P (MAP) Pulse Ox O2 Delivery O2 Flow Rate FiO2 09/25/18 06:00 103 20 86/33 (50) 99 09/25/18 05:00 104 19 109/40 (63) 98 09/25/18 04:00 Venturi Mask 14.0 09/25/18 04:00 98.4 106 17 95/82 (86) 98 09/25/18 04:00 105 09/25/18 03:00 110 17 100/31 (54) 98 09/25/18 02:54 99 21 100 Venturi Mask 10.0 45 09/25/18 02:46 97 17 98 Venturi Mask 12.0 50 09/25/18 02:00 98 17 95/50 (65) 99 09/25/18 01:00 100 20 90/34 (52) 100 09/25/18 00:00 98 09/25/18 00:00 Venturi Mask 14.0 09/25/18 00:00 99.0 103 20 85/34 (51) 100 09/24/18 23:00 106 20 89/40 (56) 100 09/24/18 22:52 103 28 99 Venturi Mask 12.0 50 09/24/18 22:41 96 26 98 Venturi Mask 14.0 55 09/24/18 22:00 101 20 76/46 (56) 100 09/24/18 21:00 99 19 87/23 (44) 100 09/24/18 20:53 110 66/38 09/24/18 20:00 98.6 99 22 82/53 (63) 98 09/24/18 20:00 Venturi Mask 14.0 09/24/18 19:20 107 30 98 Venturi Mask 14.0 55 09/24/18 19:12 105 28 98 Venturi Mask 14.0 55 09/24/18 19:12 98 Venturi Mask 14.0 55 09/24/18 19:00 99 22 96/42 (60) 98 09/24/18 18:30 90 22 92/63 (73) 96 09/24/18 18:15 93 23 91/64 (73) 97 09/24/18 18:00 94 24 99/32 (54) 99 09/24/18 17:45 111 20 131/113 (119) 97 09/24/18 17:30 126 20 97/44 (61) 97 09/24/18 17:23 124 97/44 09/24/18 17:00 98.3 125 23 97/40 (59) 97 09/24/18 16:11 113 29 96 Venturi Mask 14.0 55 09/24/18 16:05 125 31 96 Venturi Mask 14.0 55 09/24/18 16:00 131 09/24/18 16:00 Venturi Mask 14.0 09/24/18 16:00 126 20 113/52 (72) 97 09/24/18 15:00 104 26 120/54 (76) 97 09/24/18 14:00 111 20 104/47 (66) 99 09/24/18 13:00 110 22 111/44 (66) 96 09/24/18 12:00 112 09/24/18 12:00 98.7 109 24 109/35 (59) 96 09/24/18 12:00 Venturi Mask 14.0 09/24/18 11:34 111 29 97 Venturi Mask 14.0 55 09/24/18 11:16 110 21 97 Venturi Mask 14.0 55 09/24/18 11:00 111 26 114/43 (66) 99 09/24/18 10:00 114 20 111/59 (76) 99 09/24/18 09:00 115 21 100/36 (57) 98 09/24/18 08:19 102 22 98 Venturi Mask 14.0 55 09/24/18 08:00 109 09/24/18 08:00 99.0 105 23 110/36 (60) 99 09/24/18 08:00 Venturi Mask 14.0 09/24/18 07:54 125 35 80 Venturi Mask 14.0 55 09/24/18 07:50 95 Venturi Mask 14.0 55 09/24/18 07:00 106 22 96/26 (49) 95 09/24/18 05:27 102.6 120 24 82/49 (60) 94 09/24/18 05:03 102.6 09/24/18 04:00 102.2 128 24 96/44 (61) 93 09/24/18 03:59 125 28 93 Venturi Mask 14.0 55 09/24/18 03:50 125 35 80 Nasal Cannula 3.0 32 09/24/18 00:00 101.6 103 19 129/42 (71) 92 09/23/18 22:50 100 22 96 Nasal Cannula 3.0 32 09/23/18 22:36 95 20 93 Nasal Cannula 3.0 32 09/23/18 22:36 93 Nasal Cannula 3.0 32 09/23/18 22:32 Nasal Cannula 2.0 28 09/23/18 22:32 Nasal Cannula 2.0 28 09/23/18 21:50 97.7 108 20 116/47 (70) 90 09/23/18 21:00 Nasal Cannula 2.0 09/23/18 20:59 103 104/43 09/23/18 20:57 101.6 103 15 104/43 (63) 90 09/23/18 16:00 98.9 107 20 122/46 (71) 94 09/23/18 15:10 105 20 99 Nasal Cannula 2.0 28 09/23/18 15:02 101 20 94 Nasal Cannula 2.0 28 09/23/18 12:00 98.1 129 20 120/55 (76) 94 09/23/18 11:08 112 20 98 Nasal Cannula 2.0 28 09/23/18 11:08 129 133/63 09/23/18 11:00 129 20 95 Nasal Cannula 2.0 28 09/23/18 09:00 Nasal Cannula 2.0 09/23/18 08:00 97.9 124 20 133/63 (86) 99 09/23/18 07:56 111 20 99 Nasal Cannula 2.0 28 09/23/18 07:42 115 20 97 Nasal Cannula 2.0 28 09/23/18 07:41 97 Nasal Cannula 2.0 28 Intake and Output 09/24/18 09/25/18 19:00 07:00 Intake Total 3017.500 ml 27.5 ml Output Total 565 ml 260 ml Balance 2452.500 ml -232.5 ml Intake Free Water 60 ml IV Total 2877.500 ml 27.5 ml Tube Feeding 80 ml Output Urine Total 565 ml 260 ml # Bowel Movements 1 3 Labs Test 09/23/18 07:04 09/24/18 07:50 09/24/18 07:58 09/25/18 05:28 White Blood Count 10.1 K/UL (4.8-10.8) 11.5 K/UL (4.8-10.8) 9.8 K/UL (4.8-10.8) Red Blood Count 3.67 M/UL (4.70-6.10) 3.33 M/UL (4.70-6.10) 3.08 M/UL (4.70-6.10) Hemoglobin 11.1 G/DL (14.2-18.0) 10.1 G/DL (14.2-18.0) 9.2 G/DL (14.2-18.0) Hematocrit 35.5 % (42.0-52.0) 32.1 % (42.0-52.0) 30.2 % (42.0-52.0) Mean Corpuscular Volume 97 FL (80-99) 96 FL (80-99) 98 FL (80-99) Mean Corpuscular Hemoglobin 30.3 PG (27.0-31.0) 30.3 PG (27.0-31.0) 29.9 PG (27.0-31.0) Mean Corpuscular Hemoglobin Concent 31.3 G/DL (32.0-36.0) 31.4 G/DL (32.0-36.0) 30.6 G/DL (32.0-36.0) Red Cell Distribution Width 14.9 % (11.6-14.8) 14.9 % (11.6-14.8) 14.8 % (11.6-14.8) Platelet Count 205 K/UL (150-450) 225 K/UL (150-450) 193 K/UL (150-450) Mean Platelet Volume 6.7 FL (6.5-10.1) 5.8 FL (6.5-10.1) 5.8 FL (6.5-10.1) Neutrophils (%) (Auto) 83.4 % (45.0-75.0) 83.3 % (45.0-75.0) % (45.0-75.0) Lymphocytes (%) (Auto) 10.5 % (20.0-45.0) 10.4 % (20.0-45.0) % (20.0-45.0) Monocytes (%) (Auto) 5.4 % (1.0-10.0) 5.9 % (1.0-10.0) % (1.0-10.0) Eosinophils (%) (Auto) 0.4 % (0.0-3.0) 0.1 % (0.0-3.0) % (0.0-3.0) Basophils (%) (Auto) 0.2 % (0.0-2.0) 0.3 % (0.0-2.0) % (0.0-2.0) Sodium Level 135 MMOL/L (136-145) 150 MMOL/L (136-145) Potassium Level 5.3 MMOL/L (3.5-5.1) 4.8 MMOL/L (3.5-5.1) Chloride Level 110 MMOL/L (98-107) 117 MMOL/L (98-107) Carbon Dioxide Level 30 MMOL/L (21-32) 30 MMOL/L (21-32) Anion Gap -5 mmol/L (5-15) 3 mmol/L (5-15) Blood Urea Nitrogen 88 mg/dL (7-18) 83 mg/dL (7-18) Creatinine 1.7 MG/DL (0.55-1.30) 1.8 MG/DL (0.55-1.30) Estimat Glomerular Filtration Rate mL/min (>60) mL/min (>60) Glucose Level 235 MG/DL (74-106) 140 MG/DL (74-106) Calcium Level 9.9 MG/DL (8.5-10.1) 8.8 MG/DL (8.5-10.1) Arterial Blood pH 7.442 (7.350-7.450) Arterial Blood Partial Pressure CO2 50.4 mmHg (35.0-45.0) Arterial Blood Partial Pressure O2 62.4 mmHg (75.0-100.0) Arterial Blood HCO3 33.6 mmol/L (22.0-26.0) Arterial Blood Oxygen Saturation 91.6 % (95-100) Arterial Blood Base Excess 8.3 (-2-2) Juan Alberto Test Positive Prothrombin Time 11.6 SEC (9.30-11.50) Prothromb Time International Ratio 1.1 (0.9-1.1) Activated Partial Thromboplast Time 33 SEC (23-33) Total Bilirubin 0.6 MG/DL (0.2-1.0) Aspartate Amino Transf (AST/SGOT) 38 U/L (15-37) Alanine Aminotransferase (ALT/SGPT) 16 U/L (12-78) Alkaline Phosphatase 281 U/L (46-116) Total Protein 5.3 G/DL (6.4-8.2) Albumin 0.9 G/DL (3.4-5.0) Globulin 4.4 g/dL Albumin/Globulin Ratio 0.2 (1.0-2.7) Amylase Level 36 U/L (25-115) Lipase 75 U/L (73-393) Micro Microbiology Date/Time Source Procedure Growth Status 09/24/18 08:00 Sputum Induced Gram Stain - Final Resulted 09/24/18 08:00 Sputum Induced Sputum Culture Pending Resulted Height (Feet): 5 Height (Inches): 8.00 Weight (Pounds): 181 Objective Gen: well appearing, no apparent distress, alert Head: normocephalic EENT: PERRL/EOMI, normal ENT inspection Pulm: normal breath sounds, no respiratory distress. NC+ CV: rrr. no mgr GI: normal inspection, non tender, soft, normal bowel sounds, non-distended ++ gtube Rectal: deferred Gu: johnston++ Musculoskeletal: normal inspection, back normal Neurologic: normal inspection, alert, oriented x3, responsive Psychiatric: normal inspection, judgement/insight normal, memory normal Skin: normal inspection, normal color, no rash, warm/dry, palpation normal, well hydrated Fadi Vicente MD Sep 25, 2018 07:02
--- NOTE | 2018-09-25 07:15 | NUR ---
NURSE NOTES: Received pt from ISMAEL Biswas. pt is asleep, A/Ox0. Able to arouse by touch and voice. Pt on Venturi mask 55% fio2. Gurgling and audible course rhonchi heard bilateral breath sounds. Deep sxn provided, copious secretions noted. Pacemaker noted on left upper chest. A-fib on threat monitoring analyst with HR fluctuating from 90s to 110's. LFA 24G and LW 22G TKO, asymptomatic. PEG running Glucerna 1.5@30ml/hr, abdomen ascitic but soft, no residual and HOB 35 degrees. Minimal drainage noted from GT site. Sacral stage 4 dressing intact and clean. FC draining well to gravity. DNR/DNI maintained. Bed locked, alarmed and in lowest position.
--- NOTE | 2018-09-25 07:42 | NUR ---
HAND-OFF: Report given to Kimberly Best RN.
[2018-09-25] MEDS: Docusate 100mg/10ml Liq GT SCH ×2 (08:54→16:56)
[2018-09-25] MEDS: Heparin 5000 units/ml inj SUBQ SCH ×2 (08:54→21:05)
[2018-09-25] MEDS: Piperacillin/Tazobactam 3.375 GM in NS 110 ML IVPB SCH ×2 (08:54→16:56)
[2018-09-25] MEDS: Lactulose 10gm/15ml UDC GT SCH ×3 (08:54→16:56)
[2018-09-25] MEDS: Vitamin D 1000 IU Tab GT SCH ×2 (08:54→16:59)
[2018-09-25] MEDS ORDERED: Metoprolol 25mg tab ORAL SCH (09:00)
[2018-09-25] MEDS: Levemir Flexpen SUBQ SCH (09:06)
--- NOTE | 2018-09-25 09:12 | NUR ---
NURSE NOTES: Notified Dr. Richards patient's BP is low SBP <100 and cannot administer metoprolol to control HR. He changed orders to metoprolol 25mg q6hrs GT and added IVF 1/2NS@75cc/hr, MD aware of pulmonary congestion.
[2018-09-25] MEDS: Artificial Tears 1.4% Op Soln BOTH EYES SCH ×2 (09:14→21:39)
--- NOTE | 2018-09-25 10:22 | GI Progress Note ---
Assessment/Plan Problems: (1) Anemia ICD Codes: D64.9 - Anemia, unspecified SNOMED: 204553747 (2) Liver mass ICD Codes: R16.0 - Hepatomegaly, not elsewhere classified SNOMED: 090626891 (3) Fecal impaction ICD Codes: K56.41 - Fecal impaction SNOMED: 95145418 (4) CVA (cerebral vascular accident) ICD Codes: I63.9 - CVA (cerebral vascular accident) SNOMED: 099583445 (5) G tube feedings ICD Codes: Z93.1 - Gastrostomy status SNOMED: 359135455, 815326926, 770946567 (6) Abdominal distension ICD Codes: R14.0 - Abdominal distension (gaseous) SNOMED: 39896740 (7) Constipation ICD Codes: K59.00 - Constipation, unspecified SNOMED: 19605000 Qualifiers: Qualified Codes: K59.00 - Constipation, unspecified Status: unchanged Status Narrative Discussed with Dr. Gonzales. Assessment/Plan Status post paracentesis yielding 5.5 L of fluid GT change to bigger size, 24french. No reported recurrent GT leak. GT site care per wound care recommendations >> zinc oxide paste daily G-tube feedings per RD Reglan low dose Monitor H&H, PRN transfusions Turn patient every 2 hours bowel regimen The patient was seen and examined at bedside and all new and available data was reviewed in the patients chart. I agree with the above findings, impression and plan. (Patient seen earlier today. Signature stamp does not reflect patient encounter time.). - Demetris Gonzales MD Subjective Subjective Limited Objective Last 24 Hour Vital Signs Date Time Temp Pulse Resp B/P (MAP) Pulse Ox O2 Delivery O2 Flow Rate FiO2 09/25/18 08:00 Venturi Mask 14.0 09/25/18 07:38 105 19 100 Venturi Mask 10.0 40 09/25/18 07:29 103 20 100 Venturi Mask 10.0 40 09/25/18 07:29 100 Venturi Mask 10.0 40 09/25/18 07:00 100 20 97/38 (57) 99 09/25/18 06:00 103 20 86/33 (50) 99 09/25/18 05:00 104 19 109/40 (63) 98 09/25/18 04:00 Venturi Mask 14.0 09/25/18 04:00 98.4 106 17 95/82 (86) 98 09/25/18 04:00 105 09/25/18 03:00 110 17 100/31 (54) 98 09/25/18 02:54 99 21 100 Venturi Mask 10.0 45 09/25/18 02:46 97 17 98 Venturi Mask 12.0 50 09/25/18 02:00 98 17 95/50 (65) 99 09/25/18 01:00 100 20 90/34 (52) 100 09/25/18 00:00 98 09/25/18 00:00 Venturi Mask 14.0 09/25/18 00:00 99.0 103 20 85/34 (51) 100 09/24/18 23:00 106 20 89/40 (56) 100 09/24/18 22:52 103 28 99 Venturi Mask 12.0 50 09/24/18 22:41 96 26 98 Venturi Mask 14.0 55 09/24/18 22:00 101 20 76/46 (56) 100 09/24/18 21:00 99 19 87/23 (44) 100 09/24/18 20:53 110 66/38 09/24/18 20:00 98.6 99 22 82/53 (63) 98 09/24/18 20:00 Venturi Mask 14.0 09/24/18 19:20 107 30 98 Venturi Mask 14.0 55 09/24/18 19:12 105 28 98 Venturi Mask 14.0 55 09/24/18 19:12 98 Venturi Mask 14.0 55 09/24/18 19:00 99 22 96/42 (60) 98 09/24/18 18:30 90 22 92/63 (73) 96 09/24/18 18:15 93 23 91/64 (73) 97 09/24/18 18:00 94 24 99/32 (54) 99 09/24/18 17:45 111 20 131/113 (119) 97 09/24/18 17:30 126 20 97/44 (61) 97 09/24/18 17:23 124 97/44 09/24/18 17:00 98.3 125 23 97/40 (59) 97 09/24/18 16:11 113 29 96 Venturi Mask 14.0 55 09/24/18 16:05 125 31 96 Venturi Mask 14.0 55 09/24/18 16:00 131 09/24/18 16:00 Venturi Mask 14.0 09/24/18 16:00 126 20 113/52 (72) 97 09/24/18 15:00 104 26 120/54 (76) 97 09/24/18 14:00 111 20 104/47 (66) 99 09/24/18 13:00 110 22 111/44 (66) 96 09/24/18 12:00 112 09/24/18 12:00 98.7 109 24 109/35 (59) 96 09/24/18 12:00 Venturi Mask 14.0 09/24/18 11:34 111 29 97 Venturi Mask 14.0 55 09/24/18 11:16 110 21 97 Venturi Mask 14.0 55 09/24/18 11:00 111 26 114/43 (66) 99 Intake and Output 09/24/18 09/25/18 19:00 07:00 Intake Total 3017.500 ml 300.0 ml Output Total 565 ml 610 ml Balance 2452.500 ml -310.0 ml Intake Free Water 60 ml 60 ml IV Total 2877.500 ml 110.0 ml Tube Feeding 80 ml 130 ml Output Urine Total 565 ml 610 ml # Bowel Movements 1 5 Laboratory Tests Test 09/25/18 05:28 White Blood Count 9.8 K/UL (4.8-10.8) Red Blood Count 3.08 M/UL (4.70-6.10) L Hemoglobin 9.2 G/DL (14.2-18.0) L Hematocrit 30.2 % (42.0-52.0) L Mean Corpuscular Volume 98 FL (80-99) Mean Corpuscular Hemoglobin 29.9 PG (27.0-31.0) Mean Corpuscular Hemoglobin Concent 30.6 G/DL (32.0-36.0) L Red Cell Distribution Width 14.8 % (11.6-14.8) Platelet Count 193 K/UL (150-450) Mean Platelet Volume 5.8 FL (6.5-10.1) L Neutrophils (%) (Auto) % (45.0-75.0) Lymphocytes (%) (Auto) % (20.0-45.0) Monocytes (%) (Auto) % (1.0-10.0) Eosinophils (%) (Auto) % (0.0-3.0) Basophils (%) (Auto) % (0.0-2.0) Erythrocyte Sedimentation Rate 123 MM/HR (0-20) H Prothrombin Time 11.6 SEC (9.30-11.50) H Prothromb Time International Ratio 1.1 (0.9-1.1) Activated Partial Thromboplast Time 33 SEC (23-33) Sodium Level 150 MMOL/L (136-145) H Potassium Level 4.8 MMOL/L (3.5-5.1) Chloride Level 117 MMOL/L (98-107) H Carbon Dioxide Level 30 MMOL/L (21-32) Anion Gap 3 mmol/L (5-15) L Blood Urea Nitrogen 83 mg/dL (7-18) H Creatinine 1.8 MG/DL (0.55-1.30) H Estimat Glomerular Filtration Rate mL/min (>60) Glucose Level 140 MG/DL (74-106) H Calcium Level 8.8 MG/DL (8.5-10.1) Total Bilirubin 0.6 MG/DL (0.2-1.0) Aspartate Amino Transf (AST/SGOT) 38 U/L (15-37) H Alanine Aminotransferase (ALT/SGPT) 16 U/L (12-78) Alkaline Phosphatase 281 U/L (46-116) H C-Reactive Protein, Quantitative 25.1 mg/dL (0.00-0.90) H Total Protein 5.3 G/DL (6.4-8.2) L Albumin 0.9 G/DL (3.4-5.0) L Globulin 4.4 g/dL Albumin/Globulin Ratio 0.2 (1.0-2.7) L Amylase Level 36 U/L (25-115) Lipase 75 U/L (73-393) Height (Feet): 5 Height (Inches): 8.00 Weight (Pounds): 181 General Appearance: WD/WN, no apparent distress, alert Cardiovascular: normal rate Respiratory/Chest: no respiratory distress Abdominal Exam: normal bowel sounds, non tender, soft, GT site Extremities: non-tender Michelle Samuel KEY ENTRY OPERATOR Sep 25, 2018 10:22
--- NOTE | 2018-09-25 11:04 | NUR ---
Social Service Note Follow up call to patient's dgt Carolina [phone]. Family is in agreement with hospice at [facility]. Referral faxed to [facility] Miguelina [phone] (p) [phone] (f). Hospice will arrange meeting with dgt for today to sign documentation. Will continue to monitor.
--- NOTE | 2018-09-25 11:25 | Infectious Diseases Prog Note ---
Assessment/Plan Assessment/Plan antibiotics : vancomycin iv, zosyn A 1. gram negative UTI 2. pneumonia 3. diabetes mellitus 4. hypertension 5. liver mass P 1. continue iv vancomycin, zosyn 2. will follow up cultures Subjective ROS Limited/Unobtainable: Yes Constitutional: Denies: fever, chills Respiratory: Denies: shortness of breath, dry cough Gastrointestinal/Abdominal: Denies: nausea, vomiting, diarrhea Musculoskeletal: Denies: pain Allergies: Coded Allergies: No Known Allergies (Verified , 06/07/08) Objective Vital Signs Last 24 Hour Vital Signs Date Time Temp Pulse Resp B/P (MAP) Pulse Ox O2 Delivery O2 Flow Rate FiO2 09/25/18 11:06 100 18 100 Venturi Mask 8.0 40 09/25/18 10:55 99 16 100 Venturi Mask 8.0 40 09/25/18 08:00 Venturi Mask 14.0 09/25/18 07:38 105 19 100 Venturi Mask 10.0 40 09/25/18 07:29 103 20 100 Venturi Mask 10.0 40 09/25/18 07:29 100 Venturi Mask 10.0 40 09/25/18 07:00 100 20 97/38 (57) 99 09/25/18 06:00 103 20 86/33 (50) 99 09/25/18 05:00 104 19 109/40 (63) 98 09/25/18 04:00 Venturi Mask 14.0 09/25/18 04:00 98.4 106 17 95/82 (86) 98 09/25/18 04:00 105 09/25/18 03:00 110 17 100/31 (54) 98 09/25/18 02:54 99 21 100 Venturi Mask 10.0 45 09/25/18 02:46 97 17 98 Venturi Mask 12.0 50 09/25/18 02:00 98 17 95/50 (65) 99 09/25/18 01:00 100 20 90/34 (52) 100 09/25/18 00:00 98 09/25/18 00:00 Venturi Mask 14.0 09/25/18 00:00 99.0 103 20 85/34 (51) 100 09/24/18 23:00 106 20 89/40 (56) 100 09/24/18 22:52 103 28 99 Venturi Mask 12.0 50 09/24/18 22:41 96 26 98 Venturi Mask 14.0 55 09/24/18 22:00 101 20 76/46 (56) 100 09/24/18 21:00 99 19 87/23 (44) 100 09/24/18 20:53 110 66/38 09/24/18 20:00 98.6 99 22 82/53 (63) 98 09/24/18 20:00 Venturi Mask 14.0 09/24/18 19:20 107 30 98 Venturi Mask 14.0 55 09/24/18 19:12 105 28 98 Venturi Mask 14.0 55 09/24/18 19:12 98 Venturi Mask 14.0 55 09/24/18 19:00 99 22 96/42 (60) 98 09/24/18 18:30 90 22 92/63 (73) 96 09/24/18 18:15 93 23 91/64 (73) 97 09/24/18 18:00 94 24 99/32 (54) 99 09/24/18 17:45 111 20 131/113 (119) 97 09/24/18 17:30 126 20 97/44 (61) 97 09/24/18 17:23 124 97/44 09/24/18 17:00 98.3 125 23 97/40 (59) 97 09/24/18 16:11 113 29 96 Venturi Mask 14.0 55 09/24/18 16:05 125 31 96 Venturi Mask 14.0 55 09/24/18 16:00 131 09/24/18 16:00 Venturi Mask 14.0 09/24/18 16:00 126 20 113/52 (72) 97 09/24/18 15:00 104 26 120/54 (76) 97 09/24/18 14:00 111 20 104/47 (66) 99 09/24/18 13:00 110 22 111/44 (66) 96 09/24/18 12:00 112 09/24/18 12:00 98.7 109 24 109/35 (59) 96 09/24/18 12:00 Venturi Mask 14.0 09/24/18 11:34 111 29 97 Venturi Mask 14.0 55 Height (Feet): 5 Height (Inches): 8.00 Weight (Pounds): 181 Respiratory/Chest: lungs clear Cardiovascular: normal rate, regular rhythm, no gallop/murmur Abdomen: soft, non tender, other - GT Extremities: other - + edema Microbiology Date/Time Source Procedure Growth Status 09/24/18 08:00 Sputum Induced Gram Stain - Final Resulted 09/24/18 08:00 Sputum Induced Sputum Culture Pending Resulted 09/24/18 07:45 Indwelling Cath Urine Culture - Preliminary Gram Negative Bacillus 1 Resulted Laboratory Tests Test 09/25/18 05:28 White Blood Count 9.8 K/UL (4.8-10.8) Red Blood Count 3.08 M/UL (4.70-6.10) L Hemoglobin 9.2 G/DL (14.2-18.0) L Hematocrit 30.2 % (42.0-52.0) L Mean Corpuscular Volume 98 FL (80-99) Mean Corpuscular Hemoglobin 29.9 PG (27.0-31.0) Mean Corpuscular Hemoglobin Concent 30.6 G/DL (32.0-36.0) L Red Cell Distribution Width 14.8 % (11.6-14.8) Platelet Count 193 K/UL (150-450) Mean Platelet Volume 5.8 FL (6.5-10.1) L Neutrophils (%) (Auto) % (45.0-75.0) Lymphocytes (%) (Auto) % (20.0-45.0) Monocytes (%) (Auto) % (1.0-10.0) Eosinophils (%) (Auto) % (0.0-3.0) Basophils (%) (Auto) % (0.0-2.0) Erythrocyte Sedimentation Rate 123 MM/HR (0-20) H Prothrombin Time 11.6 SEC (9.30-11.50) H Prothromb Time International Ratio 1.1 (0.9-1.1) Activated Partial Thromboplast Time 33 SEC (23-33) Sodium Level 150 MMOL/L (136-145) H Potassium Level 4.8 MMOL/L (3.5-5.1) Chloride Level 117 MMOL/L (98-107) H Carbon Dioxide Level 30 MMOL/L (21-32) Anion Gap 3 mmol/L (5-15) L Blood Urea Nitrogen 83 mg/dL (7-18) H Creatinine 1.8 MG/DL (0.55-1.30) H Estimat Glomerular Filtration Rate mL/min (>60) Glucose Level 140 MG/DL (74-106) H Calcium Level 8.8 MG/DL (8.5-10.1) Total Bilirubin 0.6 MG/DL (0.2-1.0) Aspartate Amino Transf (AST/SGOT) 38 U/L (15-37) H Alanine Aminotransferase (ALT/SGPT) 16 U/L (12-78) Alkaline Phosphatase 281 U/L (46-116) H C-Reactive Protein, Quantitative 25.1 mg/dL (0.00-0.90) H Total Protein 5.3 G/DL (6.4-8.2) L Albumin 0.9 G/DL (3.4-5.0) L Globulin 4.4 g/dL Albumin/Globulin Ratio 0.2 (1.0-2.7) L Amylase Level 36 U/L (25-115) Lipase 75 U/L (73-393) Current Medications Medications (Trade) Dose Ordered Sig/Reagan Route PRN Reason Start Time Stop Time Status Last Admin Dose Admin Acetaminophen (Tylenol) 650 mg Q4H PRN GT Mild Pain/Temp > 100.5 09/24/18 08:30 10/09/18 16:29 Albuterol/ Ipratropium (Albuterol/ Ipratropium) 3 ml Q4HRT HHN 09/24/18 07:00 09/26/18 18:59 09/25/18 10:55 Artificial Tears (Akwa-Tears) 1 drop EVERY 12 HOURS BOTH EYES 09/24/18 09:00 10/15/18 20:59 09/25/18 09:14 Dextrose (Dextrose 50%) 25 ml Q30M PRN IV Hypoglycemia 09/24/18 07:00 10/03/18 21:29 Dextrose (Dextrose 50%) 50 ml Q30M PRN IV Hypoglycemia 09/24/18 07:00 10/03/18 21:29 Docusate Sodium (Colace) 100 mg BID GT 09/24/18 09:00 10/04/18 08:59 Donepezil HCl (Aricept) 10 mg BEDTIME GT 09/24/18 21:00 10/04/18 20:59 09/24/18 20:53 Heparin Sodium (Porcine) (Heparin 5000 units/ml) 5,000 units EVERY 12 HOURS SUBQ 09/24/18 09:00 10/04/18 08:59 09/24/18 20:55 Insulin Aspart (NovoLOG) EVERY 6 HOURS SUBQ 09/24/18 07:00 10/10/18 06:59 09/25/18 06:21 Insulin Detemir (Levemir) 10 units DAILY SUBQ 09/24/18 09:00 10/24/18 08:59 09/25/18 09:06 Lactulose (Cephulac) 10 gm THREE TIMES A DAY GT 09/24/18 09:00 10/08/18 12:59 09/24/18 17:35 Metoclopramide HCl (Reglan) 5 mg Q8H PRN IVP Nausea & Vomiting 09/24/18 09:00 10/10/18 08:59 Metoprolol Tartrate (Lopressor) 25 mg Q6HR ORAL 09/25/18 12:00 10/25/18 11:59 Mineral Oil (Mineral Oil) 30 ml DAILYPRN PRN GT Constipation 09/24/18 08:00 10/09/18 07:59 Piperacillin Sod/ Tazobactam Sod 3.375 gm/Sodium Chloride 110 ml @ 27.5 mls/hr Q8HR@0000,0800,1600 IVPB 09/24/18 08:00 09/29/18 07:59 09/25/18 08:54 Polyethylene Glycol (Miralax) 17 gm BEDTIME GT 09/24/18 21:00 10/06/18 20:59 Sodium Chloride 1,000 ml @ 75 mls/hr [id number] IV 09/25/18 09:30 10/25/18 09:29 09/25/18 09:30 Vancomycin HCl (Vanco rx to dose) 1 ea DAILY PRN MISC Per rx protocol 09/24/18 09:00 10/24/18 05:59 Vitamin D (Vitamin D) 1,000 intlu TWICE A DAY GT 09/24/18 09:00 10/04/18 08:59 09/25/18 08:54 Zinc Oxide (Desitin) 1 applic EVERY 8 HOURS TOPIC 09/24/18 07:00 10/08/18 06:59 09/25/18 06:20 Clari Whitten MD Sep 25, 2018 11:25
--- NOTE | 2018-09-25 11:34 | NUR ---
NURSE NOTES: Received pt from ISMAEL Biswas. pt is asleep, A/Ox0. Able to arouse by touch and voice. Pt on Venturi mask 55% fio2. Gurgling and audible course rhonchi heard bilateral breath sounds. Deep sxn provided, copious secretions noted. Pacemaker noted on left upper chest. A-fib on alarm security or surveillance monitor with HR fluctuating from 90s to 110's. LFA 24G and LW 22G TKO, asymptomatic. PEG running Glucerna 1.5@30ml/hr, abdomen ascitic but soft, no residual and HOB 35 degrees. Minimal drainage noted from GT site. Sacral stage 4 dressing intact and clean. FC draining well to gravity. DNR/DNI maintained. Bed locked, alarmed and in lowest position. Addendum: 09/25/18 at 1148 by SHAUN YORK RN Time correction to 0715AM
--- NOTE | 2018-09-25 11:55 | NUR ---
NURSE NOTES: Deep sxn provided, copious bloody mixed with cooney secretions noted. BP 104/43, A-Fib and HR fluctuating in 100's.
[2018-09-25] MEDS: Metoprolol 25mg tab ORAL SCH ×2 (12:58→18:00)
--- NOTE | 2018-09-25 13:00 | NUR ---
NURSE NOTES:WOUND CARE FOLLOW-UP NOTES:Pt presented on admission with DTPI sacrum which has now full evolved into unstageable pressure injury despite all wound preventive measure that were implemented on admission. Base of wound with 100% soft necrosis with irregular borders.Mild odor noted. Non-blanchable erythema with induration periwound.(L)11cm x (W)8.5cm. An area of non-blanchable erythema without induration or fluctuance noted to L trochanter(L)1.5cm x (W)2cm. Non-blanchable erythema without induration or fluctuance lateral L tibia(L)9cm x (W)4cm. Non-Blanchable erythema with fluctuance noted to L heel (L)6cm x (W)6.5cm. R heel boggy but blanchable. Non-blanchable erythema with fluctuance noted to tip of L 1st metatarsal (L)0.5cm x (W)0.8cm. Skin erosion around GT site resolving.Less erythema /less erosions noted. Tx.Plan: Cleanse Sacral wound with saline. Apply Therahoney.Apply Moisture Barrier Paste periwound. Cover with Optifoam drsg every 3 days and prn. Gently cleanse GT site with soap and water. Pat dry. Apply Zinc Oxide Paste around GT site Daily and prn. Apply Cavilon Skin Barrier L trochanter. Cover with Optifoam drsg. Change every 7 days and prn. Apply Cavilon Skin Barrier to lateral L tibia. Cover with Optifoam drsg. Change every 7d ays and prn. Apply Cavilon Skin Barrier to Both heels. Cover each heel with Optifoam drsg. Change every 7 days and prn. Apply Cavilon Skin Barrier to tips of toes both feet Daily. APM/WIL mattress overlay. Reposition at ;east every 2hours or as tolerated. Off-load Heels with Pillow
--- NOTE | 2018-09-25 13:26 | Nephrology Progress Note ---
Assessment/Plan Plan Sepsis Hypernatremia Na 150. - change IVF. MARIXA worsening GFR. Monitor Labs. Subjective Subjective In ICU. Objective Objective Last 24 Hour Vital Signs Date Time Temp Pulse Resp B/P (MAP) Pulse Ox O2 Delivery O2 Flow Rate FiO2 09/25/18 13:00 102 20 92/45 (61) 99 09/25/18 12:58 105 109/64 09/25/18 12:00 Venturi Mask 14.0 09/25/18 12:00 98.6 100 17 102/43 (62) 99 09/25/18 11:06 100 18 100 Venturi Mask 8.0 40 09/25/18 11:00 106 18 101/35 (57) 99 09/25/18 10:55 99 16 100 Venturi Mask 8.0 40 09/25/18 10:00 102 20 91/49 (63) 99 09/25/18 09:00 104 20 96/48 (64) 99 09/25/18 08:00 98.9 101 20 98/44 (62) 99 09/25/18 08:00 Venturi Mask 14.0 09/25/18 07:38 105 19 100 Venturi Mask 10.0 40 09/25/18 07:29 103 20 100 Venturi Mask 10.0 40 09/25/18 07:29 100 Venturi Mask 10.0 40 09/25/18 07:00 100 20 97/38 (57) 99 09/25/18 06:00 103 20 86/33 (50) 99 09/25/18 05:00 104 19 109/40 (63) 98 09/25/18 04:00 Venturi Mask 14.0 09/25/18 04:00 98.4 106 17 95/82 (86) 98 09/25/18 04:00 105 09/25/18 03:00 110 17 100/31 (54) 98 09/25/18 02:54 99 21 100 Venturi Mask 10.0 45 09/25/18 02:46 97 17 98 Venturi Mask 12.0 50 09/25/18 02:00 98 17 95/50 (65) 99 09/25/18 01:00 100 20 90/34 (52) 100 09/25/18 00:00 98 09/25/18 00:00 Venturi Mask 14.0 09/25/18 00:00 99.0 103 20 85/34 (51) 100 09/24/18 23:00 106 20 89/40 (56) 100 09/24/18 22:52 103 28 99 Venturi Mask 12.0 50 09/24/18 22:41 96 26 98 Venturi Mask 14.0 55 09/24/18 22:00 101 20 76/46 (56) 100 09/24/18 21:00 99 19 87/23 (44) 100 09/24/18 20:53 110 66/38 09/24/18 20:00 98.6 99 22 82/53 (63) 98 09/24/18 20:00 Venturi Mask 14.0 09/24/18 19:20 107 30 98 Venturi Mask 14.0 55 09/24/18 19:12 105 28 98 Venturi Mask 14.0 55 09/24/18 19:12 98 Venturi Mask 14.0 55 09/24/18 19:00 99 22 96/42 (60) 98 09/24/18 18:30 90 22 92/63 (73) 96 09/24/18 18:15 93 23 91/64 (73) 97 09/24/18 18:00 94 24 99/32 (54) 99 09/24/18 17:45 111 20 131/113 (119) 97 09/24/18 17:30 126 20 97/44 (61) 97 09/24/18 17:23 124 97/44 09/24/18 17:00 98.3 125 23 97/40 (59) 97 09/24/18 16:11 113 29 96 Venturi Mask 14.0 55 09/24/18 16:05 125 31 96 Venturi Mask 14.0 55 09/24/18 16:00 131 09/24/18 16:00 Venturi Mask 14.0 09/24/18 16:00 126 20 113/52 (72) 97 09/24/18 15:00 104 26 120/54 (76) 97 09/24/18 14:00 111 20 104/47 (66) 99 Intake and Output 09/24/18 09/25/18 19:00 07:00 Intake Total 3017.500 ml 300.0 ml Output Total 565 ml 610 ml Balance 2452.500 ml -310.0 ml Intake Free Water 60 ml 60 ml IV Total 2877.500 ml 110.0 ml Tube Feeding 80 ml 130 ml Output Urine Total 565 ml 610 ml # Bowel Movements 1 5 Laboratory Tests 09/25/18 05:28: White Blood Count 9.8, Red Blood Count 3.08L, Hemoglobin 9.2L, Hematocrit 30.2L , Mean Corpuscular Volume 98, Mean Corpuscular Hemoglobin 29.9, Mean Corpuscular Hemoglobin Concent 30.6L, Red Cell Distribution Width 14.8, Platelet Count 193, Mean Platelet Volume 5.8L, Neutrophils (%) (Auto) , Lymphocytes (%) (Auto) , Monocytes (%) (Auto) , Eosinophils (%) (Auto) , Basophils (%) (Auto) , Erythrocyte Sedimentation Rate 123H, Prothrombin Time 11.6H, Prothromb Time International Ratio 1.1, Activated Partial Thromboplast Time 33, Sodium Level 150H, Potassium Level 4.8, Chloride Level 117H, Carbon Dioxide Level 30, Anion Gap 3L, Blood Urea Nitrogen 83H, Creatinine 1.8H, Estimat Glomerular Filtration Rate , Glucose Level 140H, Calcium Level 8.8, Total Bilirubin 0.6, Aspartate Amino Transf (AST/SGOT) 38H, Alanine Aminotransferase (ALT/SGPT) 16, Alkaline Phosphatase 281H, C-Reactive Protein, Quantitative 25.1H, Total Protein 5.3L, Albumin 0.9L, Globulin 4.4, Albumin/ Globulin Ratio 0.2L, Amylase Level 36, Lipase 75 09/25/18 12:21: Arterial Blood pH 7.412, Arterial Blood Partial Pressure CO2 47.2H, Arterial Blood Partial Pressure O2 93.6, Arterial Blood HCO3 29.4H, Arterial Blood Oxygen Saturation 96.5, Arterial Blood Base Excess 4.2H, Juan Alberto Test Positive Height (Feet): 5 Height (Inches): 8.00 Weight (Pounds): 181 Objective Confused. NAD CV RR Lungs B aryanchi Abd. SNT. BS + E No CCE Ifrah Gorman MD Sep 25, 2018 13:26
--- NOTE | 2018-09-25 13:28 | NUR ---
FORMULA CHECKERSURVEILLANCE ANALYST SI: RESP FAILURE, SBO T. 98.6 HR 106 RR 20 B/P 92/45 VM 50% PH 7.44 PCO2 47.2 PO2 93.6 HCO3 29.4 O2 SAT 96.5 ESR 123 BUN 83 CR 1.8 AST 38 ALK PHOS 281 IS: IVF NS 50ML/HR ZOSYN IV LOPRESSOR ICU STATUS
--- NOTE | 2018-09-25 14:11 | NUR ---
NURSE NOTES: Rectal tube inserted per JAMESON Coffey. Patient is having brownish yellow loose stool. Wound care done with nurse. Desitin cream applied to GT site with split gauze. GTF leaking noted upon repositioning. Will notify GI MD.
--- NOTE | 2018-09-25 14:30 | Progress Note ---
DATE: 09/25/2018 CARDIOLOGY PROGRESS NOTE SUBJECTIVE: The patient remains in the intensive care unit. Blood pressure parameters are tenuous and frequently low. He has required a fluid bolus in the last evening. He had episodes of rapid atrial fibrillation as well, but that has improved with resumption of beta-jaison. However, nursing still has difficulty administering the beta-jaison due to episodes of hypotension. OBJECTIVE: VITAL SIGNS: Blood pressure 97/38, pulse 103, respiratory rate 20, afebrile. HEENT: Temporal wasting. LUNGS: Diminished breath sounds. HEART: Irregularly irregular rhythm. Normal S1, paradoxically split S2. ABDOMEN: Soft. G-tube site intact. EXTREMITIES: Without edema. LABORATORY DATA: Urine culture gram-negative bacillus. White count 9.8, hemoglobin 9.2. Sodium 150, potassium 4.8, bicarb 30, BUN 83, creatinine 1.8. Albumin 0.9. IMPRESSION: 1. Shock. 2. Sepsis. 3. Intravascular hypovolemia. 4. Dehydration. 5. Hypernatremia. 6. Hyperchloremia. 7. Acute on chronic renal failure with prerenal azotemia. 8. Permanent pacemaker. 9. Paroxysmal atrial fibrillation with rapid ventricular response. 10. Anemia. 11. Liver mass, which is chronic. PLAN: 1. Hypotonic IV fluids. 2. Antimicrobials. 3. Volume support. 4. Beta-jaison as tolerated. 5. We will need to digitalize if unable to administer beta-jaison, but in view of renal failure that would be less optimal route. 6. Continue ICU care. Marcellus Richards M.D. DR: HUNG JOB#: [id number] CC:
--- NOTE | 2018-09-25 14:50 | Pulmonology Progress Note ---
Assessment/Plan Assessment/Plan Pulmonary CCM Progress Note Assessment/Plan Problem List: (1) Atrial fibrillation and flutter ICD Codes: I48.91 - Unspecified atrial fibrillation; I48.92 - Unspecified atrial flutter SNOMED: 118116612 (2) CHF (congestive heart failure) ICD Codes: I50.9 - Heart failure, unspecified SNOMED: 32212788 (3) Pancreatitis ICD Codes: K85.90 - Acute pancreatitis without necrosis or infection, unspecified SNOMED: 77164663 (4) CVA (cerebral vascular accident) ICD Codes: I63.9 - CVA (cerebral vascular accident) SNOMED: 191223180 (5) Abdominal distension ICD Codes: R14.0 - Abdominal distension (gaseous) SNOMED: 89101570 (6) Umbilical hernia ICD Codes: K42.9 - Umbilical hernia without obstruction or gangrene SNOMED: 030299565 Qualifiers: Qualified Codes: K42.9 - Umbilical hernia without obstruction or gangrene Assessment/Plan: liver mass abdominal distention episodic hypertension and tachycardia abdominal distention, slightly improved urinary retention ascites s/p tap fever acute on chronic renal failure fever possible sepsis shock DNAR/DNI PLAN CXR noted; concern of capillary leak Reduce IVF empiric antibiotics pancultures avoid nephrotoxic agents maintain feeds as able and if tolerated; gt was clogged but now working general surgery reviewed and noted cardiology noted ID called monitor for change and recommend liver masses previously - defer biopsy and discuss; patient too ill monitor TF and resume when able monitor urine output remains acute with multiorgan failure medications/laboratory data/nursing notes/ICU care reviewed in detail note reviewed and edited care discussed with RN and RT ICU time spent 45 minutes Subjective ROS Limited/Unobtainable: Yes Allergies: Coded Allergies: No Known Allergies (Verified , 06/07/08) Subjective abdmen distende gi and gs called to followup Objective Vital Signs Noted Height (Feet): 5 Height (Inches): 8.00 Weight (Pounds): 160 Objective WDWN NAD clear breath sounds bilaterally without rhonchi or wheeze [id number] without MRG NABS noted distention GT in place no CCE nonfocal confused Subjective ROS Limited/Unobtainable: No Allergies: Coded Allergies: No Known Allergies (Verified , 06/07/08) Objective Last 24 Hour Vital Signs Date Time Temp Pulse Resp B/P (MAP) Pulse Ox O2 Delivery O2 Flow Rate FiO2 09/25/18 13:00 102 20 92/45 (61) 99 09/25/18 12:58 105 109/64 09/25/18 12:00 Venturi Mask 14.0 09/25/18 12:00 98.6 100 17 102/43 (62) 99 09/25/18 11:06 100 18 100 Venturi Mask 8.0 40 09/25/18 11:00 106 18 101/35 (57) 99 09/25/18 10:55 99 16 100 Venturi Mask 8.0 40 09/25/18 10:00 102 20 91/49 (63) 99 09/25/18 09:00 104 20 96/48 (64) 99 09/25/18 08:00 98.9 101 20 98/44 (62) 99 09/25/18 08:00 Venturi Mask 14.0 09/25/18 07:38 105 19 100 Venturi Mask 10.0 40 09/25/18 07:29 103 20 100 Venturi Mask 10.0 40 09/25/18 07:29 100 Venturi Mask 10.0 40 09/25/18 07:00 100 20 97/38 (57) 99 09/25/18 06:00 103 20 86/33 (50) 99 09/25/18 05:00 104 19 109/40 (63) 98 09/25/18 04:00 Venturi Mask 14.0 09/25/18 04:00 98.4 106 17 95/82 (86) 98 09/25/18 04:00 105 09/25/18 03:00 110 17 100/31 (54) 98 09/25/18 02:54 99 21 100 Venturi Mask 10.0 45 09/25/18 02:46 97 17 98 Venturi Mask 12.0 50 09/25/18 02:00 98 17 95/50 (65) 99 09/25/18 01:00 100 20 90/34 (52) 100 09/25/18 00:00 98 09/25/18 00:00 Venturi Mask 14.0 09/25/18 00:00 99.0 103 20 85/34 (51) 100 09/24/18 23:00 106 20 89/40 (56) 100 09/24/18 22:52 103 28 99 Venturi Mask 12.0 50 09/24/18 22:41 96 26 98 Venturi Mask 14.0 55 09/24/18 22:00 101 20 76/46 (56) 100 09/24/18 21:00 99 19 87/23 (44) 100 09/24/18 20:53 110 66/38 09/24/18 20:00 98.6 99 22 82/53 (63) 98 09/24/18 20:00 Venturi Mask 14.0 09/24/18 19:20 107 30 98 Venturi Mask 14.0 55 09/24/18 19:12 105 28 98 Venturi Mask 14.0 55 09/24/18 19:12 98 Venturi Mask 14.0 55 09/24/18 19:00 99 22 96/42 (60) 98 09/24/18 18:30 90 22 92/63 (73) 96 09/24/18 18:15 93 23 91/64 (73) 97 09/24/18 18:00 94 24 99/32 (54) 99 09/24/18 17:45 111 20 131/113 (119) 97 09/24/18 17:30 126 20 97/44 (61) 97 09/24/18 17:23 124 97/44 09/24/18 17:00 98.3 125 23 97/40 (59) 97 09/24/18 16:11 113 29 96 Venturi Mask 14.0 55 09/24/18 16:05 125 31 96 Venturi Mask 14.0 55 09/24/18 16:00 131 09/24/18 16:00 Venturi Mask 14.0 09/24/18 16:00 126 20 113/52 (72) 97 09/24/18 15:00 104 26 120/54 (76) 97 Intake and Output 09/24/18 09/25/18 19:00 07:00 Intake Total 3017.500 ml 300.0 ml Output Total 565 ml 610 ml Balance 2452.500 ml -310.0 ml Intake Free Water 60 ml 60 ml IV Total 2877.500 ml 110.0 ml Tube Feeding 80 ml 130 ml Output Urine Total 565 ml 610 ml # Bowel Movements 1 5 Microbiology Date/Time Source Procedure Growth Status 09/24/18 08:00 Sputum Induced Gram Stain - Final Resulted 09/24/18 08:00 Sputum Induced Sputum Culture Pending Resulted 09/24/18 07:45 Indwelling Cath Urine Culture - Preliminary Gram Negative Bacillus 1 Resulted Laboratory Tests 09/25/18 05:28: White Blood Count 9.8, Red Blood Count 3.08L, Hemoglobin 9.2L, Hematocrit 30.2L , Mean Corpuscular Volume 98, Mean Corpuscular Hemoglobin 29.9, Mean Corpuscular Hemoglobin Concent 30.6L, Red Cell Distribution Width 14.8, Platelet Count 193, Mean Platelet Volume 5.8L, Neutrophils (%) (Auto) , Lymphocytes (%) (Auto) , Monocytes (%) (Auto) , Eosinophils (%) (Auto) , Basophils (%) (Auto) , Erythrocyte Sedimentation Rate 123H, Prothrombin Time 11.6H, Prothromb Time International Ratio 1.1, Activated Partial Thromboplast Time 33, Sodium Level 150H, Potassium Level 4.8, Chloride Level 117H, Carbon Dioxide Level 30, Anion Gap 3L, Blood Urea Nitrogen 83H, Creatinine 1.8H, Estimat Glomerular Filtration Rate , Glucose Level 140H, Calcium Level 8.8, Total Bilirubin 0.6, Aspartate Amino Transf (AST/SGOT) 38H, Alanine Aminotransferase (ALT/SGPT) 16, Alkaline Phosphatase 281H, C-Reactive Protein, Quantitative 25.1H, Total Protein 5.3L, Albumin 0.9L, Globulin 4.4, Albumin/ Globulin Ratio 0.2L, Amylase Level 36, Lipase 75 09/25/18 12:21: Arterial Blood pH 7.412, Arterial Blood Partial Pressure CO2 47.2H, Arterial Blood Partial Pressure O2 93.6, Arterial Blood HCO3 29.4H, Arterial Blood Oxygen Saturation 96.5, Arterial Blood Base Excess 4.2H, Juan Alberto Test Positive Current Medications Medications (Trade) Dose Ordered Sig/Reagan Route PRN Reason Start Time Stop Time Status Last Admin Dose Admin Acetaminophen (Tylenol) 650 mg Q4H PRN GT Mild Pain/Temp > 100.5 09/24/18 08:30 10/09/18 16:29 Albuterol/ Ipratropium (Albuterol/ Ipratropium) 3 ml Q4HRT HHN 09/24/18 07:00 09/26/18 18:59 09/25/18 10:55 Artificial Tears (Akwa-Tears) 1 drop EVERY 12 HOURS BOTH EYES 09/24/18 09:00 10/15/18 20:59 09/25/18 09:14 Dextrose 1,000 ml @ 50 mls/hr Q20H IV 09/25/18 13:30 10/25/18 13:29 09/25/18 14:17 Dextrose (Dextrose 50%) 25 ml Q30M PRN IV Hypoglycemia 09/24/18 07:00 10/03/18 21:29 Dextrose (Dextrose 50%) 50 ml Q30M PRN IV Hypoglycemia 09/24/18 07:00 10/03/18 21:29 Docusate Sodium (Colace) 100 mg BID GT 09/24/18 09:00 10/04/18 08:59 Donepezil HCl (Aricept) 10 mg BEDTIME GT 09/24/18 21:00 10/04/18 20:59 09/24/18 20:53 Heparin Sodium (Porcine) (Heparin 5000 units/ml) 5,000 units EVERY 12 HOURS SUBQ 09/24/18 09:00 10/04/18 08:59 09/24/18 20:55 Insulin Aspart (NovoLOG) EVERY 6 HOURS SUBQ 09/24/18 07:00 10/10/18 06:59 09/25/18 12:58 Insulin Detemir (Levemir) 10 units DAILY SUBQ 09/24/18 09:00 10/24/18 08:59 09/25/18 09:06 Lactulose (Cephulac) 10 gm THREE TIMES A DAY GT 09/24/18 09:00 10/08/18 12:59 09/24/18 17:35 Metoclopramide HCl (Reglan) 5 mg Q8H PRN IVP Nausea & Vomiting 09/24/18 09:00 10/10/18 08:59 Metoprolol Tartrate (Lopressor) 25 mg Q6HR ORAL 09/25/18 12:00 10/25/18 11:59 09/25/18 12:58 Mineral Oil (Mineral Oil) 30 ml DAILYPRN PRN GT Constipation 09/24/18 08:00 10/09/18 07:59 Piperacillin Sod/ Tazobactam Sod 3.375 gm/Sodium Chloride 110 ml @ 27.5 mls/hr Q8HR@0000,0800,1600 IVPB 09/24/18 08:00 09/29/18 07:59 09/25/18 08:54 Polyethylene Glycol (Miralax) 17 gm BEDTIME GT 09/24/18 21:00 10/06/18 20:59 Vancomycin HCl (Vanco rx to dose) 1 ea DAILY PRN MISC Per rx protocol 09/24/18 09:00 10/24/18 05:59 Vitamin D (Vitamin D) 1,000 intlu TWICE A DAY GT 09/24/18 09:00 10/04/18 08:59 09/25/18 08:54 Zinc Oxide (Desitin) 1 applic EVERY 8 HOURS TOPIC 09/24/18 07:00 10/08/18 06:59 09/25/18 14:11 Marcellus Castillo MD Sep 25, 2018 14:50
--- NOTE | 2018-09-25 15:35 | Cardiology Report ---
APPROVED REPORT EKG Measurement Heart [id number] Atrial fibrillation with rapid ventricular response Incomplete right bundle branch block Left anterior fascicular block Abnormal ECG
--- NOTE | 2018-09-25 16:20 | NUR ---
NURSE NOTES: Turned and repositioned. Kept dry and clean. Oral care done. Updated daughter regarding care.
--- NOTE | 2018-09-25 16:29 | Surgery Progress Note ---
Surgery Progress Note Subjective Additional Comments Pending ultrasound read No acute events Tachycardic on oxygen mask Abdominal exam unchanged Objective Last 24 Hour Vital Signs Date Time Temp Pulse Resp B/P (MAP) Pulse Ox O2 Delivery O2 Flow Rate FiO2 09/25/18 15:40 99 16 100 Venturi Mask 8.0 40 09/25/18 15:30 93 17 100 Venturi Mask 8.0 40 09/25/18 13:00 102 20 92/45 (61) 99 09/25/18 12:58 105 109/64 09/25/18 12:00 Venturi Mask 14.0 09/25/18 12:00 98.6 100 17 102/43 (62) 99 09/25/18 11:06 100 18 100 Venturi Mask 8.0 40 09/25/18 11:00 106 18 101/35 (57) 99 09/25/18 10:55 99 16 100 Venturi Mask 8.0 40 09/25/18 10:00 102 20 91/49 (63) 99 09/25/18 09:00 104 20 96/48 (64) 99 09/25/18 08:00 98.9 101 20 98/44 (62) 99 09/25/18 08:00 Venturi Mask 14.0 09/25/18 07:38 105 19 100 Venturi Mask 10.0 40 09/25/18 07:29 103 20 100 Venturi Mask 10.0 40 09/25/18 07:29 100 Venturi Mask 10.0 40 09/25/18 07:00 100 20 97/38 (57) 99 09/25/18 06:00 103 20 86/33 (50) 99 09/25/18 05:00 104 19 109/40 (63) 98 09/25/18 04:00 Venturi Mask 14.0 09/25/18 04:00 98.4 106 17 95/82 (86) 98 09/25/18 04:00 105 09/25/18 03:00 110 17 100/31 (54) 98 09/25/18 02:54 99 21 100 Venturi Mask 10.0 45 09/25/18 02:46 97 17 98 Venturi Mask 12.0 50 09/25/18 02:00 98 17 95/50 (65) 99 09/25/18 01:00 100 20 90/34 (52) 100 09/25/18 00:00 98 09/25/18 00:00 Venturi Mask 14.0 09/25/18 00:00 99.0 103 20 85/34 (51) 100 09/24/18 23:00 106 20 89/40 (56) 100 09/24/18 22:52 103 28 99 Venturi Mask 12.0 50 09/24/18 22:41 96 26 98 Venturi Mask 14.0 55 09/24/18 22:00 101 20 76/46 (56) 100 09/24/18 21:00 99 19 87/23 (44) 100 09/24/18 20:53 110 66/38 09/24/18 20:00 98.6 99 22 82/53 (63) 98 09/24/18 20:00 Venturi Mask 14.0 09/24/18 19:20 107 30 98 Venturi Mask 14.0 55 09/24/18 19:12 105 28 98 Venturi Mask 14.0 55 09/24/18 19:12 98 Venturi Mask 14.0 55 09/24/18 19:00 99 22 96/42 (60) 98 09/24/18 18:30 90 22 92/63 (73) 96 09/24/18 18:15 93 23 91/64 (73) 97 09/24/18 18:00 94 24 99/32 (54) 99 09/24/18 17:45 111 20 131/113 (119) 97 09/24/18 17:30 126 20 97/44 (61) 97 09/24/18 17:23 124 97/44 09/24/18 17:00 98.3 125 23 97/40 (59) 97 I&O Intake and Output 09/24/18 09/25/18 19:00 07:00 Intake Total 3017.500 ml 300.0 ml Output Total 565 ml 610 ml Balance 2452.500 ml -310.0 ml Intake Free Water 60 ml 60 ml IV Total 2877.500 ml 110.0 ml Tube Feeding 80 ml 130 ml Output Urine Total 565 ml 610 ml # Bowel Movements 1 5 Cardiovascular: RSR, other Respiratory: decreased breath sounds Abdomen: soft, distended, non-tender, present bowel sounds Extremities: no cyanosis Laboratory Tests Test 09/25/18 05:28 09/25/18 12:21 White Blood Count 9.8 K/UL (4.8-10.8) Red Blood Count 3.08 M/UL (4.70-6.10) L Hemoglobin 9.2 G/DL (14.2-18.0) L Hematocrit 30.2 % (42.0-52.0) L Mean Corpuscular Volume 98 FL (80-99) Mean Corpuscular Hemoglobin 29.9 PG (27.0-31.0) Mean Corpuscular Hemoglobin Concent 30.6 G/DL (32.0-36.0) L Red Cell Distribution Width 14.8 % (11.6-14.8) Platelet Count 193 K/UL (150-450) Mean Platelet Volume 5.8 FL (6.5-10.1) L Neutrophils (%) (Auto) % (45.0-75.0) Lymphocytes (%) (Auto) % (20.0-45.0) Monocytes (%) (Auto) % (1.0-10.0) Eosinophils (%) (Auto) % (0.0-3.0) Basophils (%) (Auto) % (0.0-2.0) Erythrocyte Sedimentation Rate 123 MM/HR (0-20) H Prothrombin Time 11.6 SEC (9.30-11.50) H Prothromb Time International Ratio 1.1 (0.9-1.1) Activated Partial Thromboplast Time 33 SEC (23-33) Sodium Level 150 MMOL/L (136-145) H Potassium Level 4.8 MMOL/L (3.5-5.1) Chloride Level 117 MMOL/L (98-107) H Carbon Dioxide Level 30 MMOL/L (21-32) Anion Gap 3 mmol/L (5-15) L Blood Urea Nitrogen 83 mg/dL (7-18) H Creatinine 1.8 MG/DL (0.55-1.30) H Estimat Glomerular Filtration Rate mL/min (>60) Glucose Level 140 MG/DL (74-106) H Calcium Level 8.8 MG/DL (8.5-10.1) Total Bilirubin 0.6 MG/DL (0.2-1.0) Aspartate Amino Transf (AST/SGOT) 38 U/L (15-37) H Alanine Aminotransferase (ALT/SGPT) 16 U/L (12-78) Alkaline Phosphatase 281 U/L (46-116) H C-Reactive Protein, Quantitative 25.1 mg/dL (0.00-0.90) H Total Protein 5.3 G/DL (6.4-8.2) L Albumin 0.9 G/DL (3.4-5.0) L Globulin 4.4 g/dL Albumin/Globulin Ratio 0.2 (1.0-2.7) L Amylase Level 36 U/L (25-115) Lipase 75 U/L (73-393) Arterial Blood pH 7.412 (7.350-7.450) Arterial Blood Partial Pressure CO2 47.2 mmHg (35.0-45.0) H Arterial Blood Partial Pressure O2 93.6 mmHg (75.0-100.0) Arterial Blood HCO3 29.4 mmol/L (22.0-26.0) H Arterial Blood Oxygen Saturation 96.5 % (95-100) Arterial Blood Base Excess 4.2 (-2-2) H Juan Alberto Test Positive Plan Problems: (1) Abdominal distension Assessment & Plan: improved tolerating diet exam unchanged with fluid but no sbo possible declining liver function with declining real function abdomen becoming distended again likely fluid filled will repeat US (2) Malnutrition Assessment & Plan: Evolving DTPI sacrum. Base of wound has 100% soft necrosis ( L)2.5cm x (W)3.2cm with surrounding non-blanchable erythema with induration noted. (L)6.5cm x(W)8cm. Erythema noted to scrotum . Non-blanchable erythema with fluctuance L heel. Non-blanchable erythema without fluctuance R heel. G site erythematous with denuded skin. Surrounding adhesive related skin tears noted to surrounding skin with small amt sanguineous exudate.Area gentlyu cleansed with soap and water .Pat dried. Zinc Oxide paste applied to GT site and surrounding skin damage . 4 x $ drain gauze appied around Gt site without tape. Recommended to primary nurse to avoid taping gauze around Gt . Tx.Plan: Cleanse Sacral wound with Saline. Apply Therahoney. Apply Moisture Barrier Periwound. Cover with Optifoam drsg. Change every 3 days and prn. Apply Moisture Barrier Paste to Bilat groin and scrotum with each incontinence care. Gently cleanse GT site with Soap and water. Pat dry. Apply Zinc Oxide paste daily and prn.Place 4x4 gauze around GT. Do Not Tape Gauze. Apply Cavilon Skin Barrier to both heels. Cover each heel with Optifoam drsg. Change every 7 days and prn. APM/WIL Mattress. Reposition at least every 2hours or as tolerated. Off-load heels with pillow. Jesse Cash Sep 25, 2018 16:29
--- NOTE | 2018-09-25 16:35 | Diagnostic Imaging Report ---
Indication: Abdominal pain Technique: Grayscale and duplex Doppler imaging of the abdomen performed. Comparison: None Findings: There is mild to moderate ascites demonstrated. There is a nonobstructive stone within the left kidney. There is no hydronephrosis. Kidneys are partially obscured. Pancreas and aorta are largely obscured. The liver appears heterogeneous and is a poorly seen on this examination. Portal vein is patent. There is an an abnormal area of large masslike echogenicity on the current examination within the right lobe which is better demonstrated on recent CT. Please refer to the CT report from 09/03/2018 which showed area of low attenuation suspicious for malignant neoplasm. The spleen is enlarged measuring 15 cm. IMPRESSION: Abnormal masslike echogenic ill-defined focus in the right lobe of the liver corresponding to as low attenuation on recent CT dated 09/03/2018. Findings are concerning for malignant neoplasm. Ascites. Suspected nonobstructive stone in the left kidney. Splenomegaly. Limited evaluation of the midline structures especially retroperitoneal structures such as the aorta and pancreas not well seen on this study.
--- NOTE | 2018-09-25 19:20 | NUR ---
NURSE NOTES: Received patient from ISMAEL DUNN. Will continue plan of care.
--- NOTE | 2018-09-25 19:22 | NUR ---
TRANSFER TO FLOOR: Patient transferred to [facility], per Dr. Richards. Report given to ISMAEL Wilburn. Patient does not have any belongings. denture given to daughter. Family and or S/O informed of transfer.
[2018-09-25] MEDS ORDERED: Metoclopramide 10mg/2ml Inj IVP PRN (19:30)
[2018-09-25] MEDS ORDERED: Acetaminophen 650mg/20.3ml GT PRN (19:30)
[2018-09-25] MEDS ORDERED: Mineral Oil 30ml ud GT PRN (19:30)
[2018-09-25] MEDS: Miralax 17gm pkt GT SCH (21:02)
[2018-09-25] MEDS: Donepezil 10mg tab GT SCH (21:02)
[2018-09-26] VITALS: BP 123/52
[2018-09-26] MEDS: Piperacillin/Tazobactam 3.375 GM in NS 110 ML IVPB SCH ×3 (00:02→15:59)
[2018-09-26] MEDS: Metoprolol 25mg tab ORAL SCH ×4 (00:02→17:57)
[2018-09-26] MEDS: Albuterol/Ipratropium 3ml neb HHN SCH ×6 (03:09→22:59)
[2018-09-26 04:00] VITALS: BP 117/35
[2018-09-26] MEDS: Desitin Rash Paste TOPIC SCH ×3 (05:13→21:25)
[2018-09-26] MEDS: NovoLOG Insulin Flexpen SUBQ SCH ×4 (05:16→17:58)
[2018-09-26 05:24] LABS: BASOPHILS % (AUTO) 0.2 % (0.0-2.0); EOSINOPHILS % (AUTO) 0.9 % (0.0-3.0); HEMATOCRIT 30.2 % (42.0-52.0); HEMOGLOBIN 9.4 G/DL (14.2-18.0); LYMPHOCYTES % (AUTO) 12.9 % (20.0-45.0); MEAN CORPUSCULAR VOLUME 97 FL (80-99); MONOCYTES % (AUTO) 4.5 % (1.0-10.0); NEUTROPHILS % (AUTO) 81.5 % (45.0-75.0); PLATELET COUNT 184 K/UL (150-450); RED BLOOD COUNT 3.12 M/UL (4.70-6.10); RED CELL DISTRIBUTION WIDTH 14.3 % (11.6-14.8); WHITE BLOOD COUNT 11.7 K/UL (4.8-10.8)
[2018-09-26 06:06] LABS: ALANINE AMINOTRANSFERASE 16 U/L (12-78); ALBUMIN/GLOBULIN RATIO 0.2 (1.0-2.7); ALKALINE PHOSPHATASE 280 U/L (46-116); ANION GAP 6 mmol/L (5-15); ASPARTATE AMINO TRANSFERASE 40 U/L (15-37); BILIRUBIN,TOTAL 0.5 MG/DL (0.2-1.0); BLOOD UREA NITROGEN 74 mg/dL (7-18); CARBON DIOXIDE 29 MMOL/L (21-32); CHLORIDE 115 MMOL/L (98-107); CREATININE 1.7 MG/DL (0.55-1.30); POTASSIUM 4.3 MMOL/L (3.5-5.1); SODIUM 150 MMOL/L (136-145)
[2018-09-26 06:07] LABS: PHOSPHORUS 4.1 MG/DL (2.5-4.9)
--- NOTE | 2018-09-26 07:25 | NUR ---
NURSE NOTES: Received report from Linh Hernandez RN. Patient alert and oriented to name, confused. Receiving O2 via Venturi mask @ 8 L/min, FiO2 40%, no s/s of respiratory distress noted. GT feeding of Glucerna 1.5 running @ 45 cc/hr, no residuals noted. HoB elevated. Schmid catheter patent and draining well. Rectal tube in place and noted with liquid stool. Right hand 22g IV site infusing D5W @ 50 cc/hr, asymptomatic. Bed locked in lowest position with side rails up x 3. All needs attended to. Call light within reach. Will continue to monitor.
[2018-09-26 08:00] VITALS: BP 120/41
[2018-09-26] MEDS ORDERED: Vancomycin 1.25gm Premix IVPB ONE (08:00)
[2018-09-26] MEDS: Docusate 100mg/10ml Liq GT SCH ×2 (08:56→17:56)
[2018-09-26] MEDS: Artificial Tears 1.4% Op Soln BOTH EYES SCH ×2 (08:57→21:25)
[2018-09-26] MEDS: Vitamin D 1000 IU Tab GT SCH ×2 (08:57→17:57)
[2018-09-26] MEDS: Heparin 5000 units/ml inj SUBQ SCH ×2 (08:59→21:25)
[2018-09-26] MEDS ORDERED: Lactulose 10gm/15ml UDC GT SCH (09:00)
[2018-09-26] MEDS: Levemir Flexpen SUBQ SCH (09:00)
--- NOTE | 2018-09-26 09:12 | General Progress Note ---
Assessment/Plan Problem List: (1) Atrial fibrillation and flutter ICD Codes: I48.91 - Unspecified atrial fibrillation; I48.92 - Unspecified atrial flutter SNOMED: 823945445 (2) CHF (congestive heart failure) ICD Codes: I50.9 - Heart failure, unspecified SNOMED: 38472157 (3) Pancreatitis ICD Codes: K85.90 - Acute pancreatitis without necrosis or infection, unspecified SNOMED: 57721311 (4) CVA (cerebral vascular accident) ICD Codes: I63.9 - CVA (cerebral vascular accident) SNOMED: 126241665 (5) Abdominal distension ICD Codes: R14.0 - Abdominal distension (gaseous) SNOMED: 97894734 (6) Umbilical hernia ICD Codes: K42.9 - Umbilical hernia without obstruction or gangrene SNOMED: 293263423 Qualifiers: Qualified Codes: K42.9 - Umbilical hernia without obstruction or gangrene Status: unchanged Assessment/Plan: liver mass abdominal distention episodic hypertension and tachycardia abdominal distention, slightly improved urinary retention ascites s/p tap fever acute on chronic renal failure fever possible sepsis shock PLAN dc to snf with hospice family in agreement DNR in place remains acute with multiorgan failure medications/laboratory data/nursing notes reviewed in detail note reviewed and edited care discussed with RN and RT Subjective ROS Limited/Unobtainable: Yes Allergies: Coded Allergies: No Known Allergies (Verified , 06/07/08) Subjective per family plan to dc to snf with hospice Objective Last 24 Hour Vital Signs Date Time Temp Pulse Resp B/P (MAP) Pulse Ox O2 Delivery O2 Flow Rate FiO2 09/26/18 08:00 98.9 105 22 120/41 (67) 98 09/26/18 07:17 98 22 100 Venturi Mask 8.0 40 09/26/18 07:05 100 Venturi Mask 8.0 40 09/26/18 07:05 85 21 100 Venturi Mask 8.0 40 09/26/18 05:13 104 117/35 09/26/18 04:00 Venturi Mask 14.0 09/26/18 04:00 98.1 104 24 117/35 (62) 99 09/26/18 03:29 99 09/26/18 03:21 97 20 100 Venturi Mask 8.0 40 09/26/18 03:09 88 18 99 Venturi Mask 8.0 40 09/26/18 00:02 110 123/52 09/26/18 00:00 98.2 98 20 123/52 (75) 99 09/26/18 00:00 Venturi Mask 14.0 09/25/18 23:29 114 09/25/18 23:08 103 20 100 Venturi Mask 8.0 40 09/25/18 22:58 98 20 100 Venturi Mask 8.0 40 09/25/18 20:00 Venturi Mask 14.0 09/25/18 20:00 98.6 96 24 112/86 (95) 100 09/25/18 19:55 117 09/25/18 19:21 102 20 100 Venturi Mask 8.0 40 09/25/18 19:07 101 20 98 Venturi Mask 8.0 40 09/25/18 19:06 98 Venturi Mask 8.0 40 09/25/18 18:00 105 20 113/68 (83) 99 09/25/18 18:00 101 98/35 09/25/18 17:00 102 20 102/35 (57) 99 09/25/18 16:00 109 09/25/18 16:00 Venturi Mask 14.0 09/25/18 16:00 98.1 105 20 88/48 (61) 99 09/25/18 15:40 99 16 100 Venturi Mask 8.0 40 09/25/18 15:30 93 17 100 Venturi Mask 8.0 40 09/25/18 15:00 92 17 105/33 (57) 100 09/25/18 14:00 91 18 100/42 (61) 99 09/25/18 13:00 102 20 92/45 (61) 99 09/25/18 12:58 105 109/64 09/25/18 12:00 Venturi Mask 14.0 09/25/18 12:00 98.6 100 17 102/43 (62) 99 09/25/18 12:00 98 09/25/18 11:06 100 18 100 Venturi Mask 8.0 40 09/25/18 11:00 106 18 101/35 (57) 99 09/25/18 10:55 99 16 100 Venturi Mask 8.0 40 09/25/18 10:00 102 20 91/49 (63) 99 Intake and Output 09/25/18 09/26/18 19:00 07:00 Intake Total 1010 ml 990.79 ml Output Total 550 ml 1000 ml Balance 460 ml -9.21 ml Intake Free Water 260 ml 100 ml IV Total 350 ml 620.79 ml Tube Feeding 400 ml 270 ml Output Urine Total 550 ml 800 ml Stool Total 200 ml # Bowel Movements 5 Laboratory Tests 09/25/18 12:21: Arterial Blood pH 7.412, Arterial Blood Partial Pressure CO2 47.2H, Arterial Blood Partial Pressure O2 93.6, Arterial Blood HCO3 29.4H, Arterial Blood Oxygen Saturation 96.5, Arterial Blood Base Excess 4.2H, Juan Alberto Test Positive 09/26/18 04:00: White Blood Count 11.7H, Red Blood Count 3.12L, Hemoglobin 9.4L, Hematocrit 30.2L, Mean Corpuscular Volume 97, Mean Corpuscular Hemoglobin 30.0, Mean Corpuscular Hemoglobin Concent 31.0L, Red Cell Distribution Width 14.3, Platelet Count 184, Mean Platelet Volume 6.0L, Neutrophils (%) (Auto) 81.5H, Lymphocytes (%) (Auto) 12.9L, Monocytes (%) (Auto) 4.5, Eosinophils (%) (Auto) 0.9, Basophils (%) (Auto) 0.2, Sodium Level 150H, Potassium Level 4.3, Chloride Level 115H, Carbon Dioxide Level 29, Anion Gap 6, Blood Urea Nitrogen 74H, Creatinine 1.7H, Estimat Glomerular Filtration Rate , Glucose Level 101, Calcium Level 9.0, Phosphorus Level 4.1, Magnesium Level 2.3, Total Bilirubin 0.5, Aspartate Amino Transf (AST/SGOT) 40H, Alanine Aminotransferase (ALT/SGPT) 16, Alkaline Phosphatase 280H, Total Protein 5.7L, Albumin 1.0L, Globulin 4.7, Albumin/Globulin Ratio 0.2L, Random Vancomycin Level 11.3 Height (Feet): 5 Height (Inches): 8.00 Weight (Pounds): 178 Objective WDWN acutely ill reduced breath sounds bilaterally with some rhonchi [id number] without MRG NABS;Gt in place; minimally distended; no HSM no CC; noted edema nonfocal skin exam noted confused with reduced LOC reviewed and examined Dustin Mary MD Sep 26, 2018 09:12
--- NOTE | 2018-09-26 10:13 | General Progress Note ---
Assessment/Plan Status: unchanged Assessment/Plan: Assessment and Recs # Liver mass - large heterogeneous mass in the right lobe of the liver suspicious for malignant neoplasm, us of the abdomen was reviewed --> imaging has been reviewed and c/w likely malignancy on ct and us as well --> as per Gi recs, defer tumor biopsy, has been present prior admission --> treatment once have results of primary --> imaging as needed r/o ascites --> tumor markers reviewed are wnl --> dc to snf with hospice, remains acute with multiorgan failure (at this time hold biopsy) per pcp # Anemia of chronic disease due to underlying chronic medical issues, multifactorial --> Anemia workup reviewed, rule out gi bleed, ferritin is 118 --> No evidence of hemolysis is noted, peripheral smear has been reviewed. --> Hgb goal >7. Transfuse prn. --> Epogen or iron at this time is not particularly indicated --> Medications have been reviewed --> improved trend 10-->11-->12-->11.8-->11.5-->11.4-->11.4-->10.5-->9.2-->9.4 # Hypercalcemia - on admission elev, due to likely dehydration --> Ca has improved, on ivf --> on IVF also for hypernatremia --> per renal recs # Fecal impaction/constipation --> on colace, senna as per gi # Abdominal distension --> improved mildly, per gi # DVT ppx with heparin sq The timing of this note does not necessarily reflect the time of the patient was seen. GREATLY APPRECIATE CONSULTATION. Subjective Constitutional: Denies: no symptoms, chills, diaphoresis, fever, malaise, weakness, other HEENT: Denies: no symptoms, eye pain, blurred vision, tearing, double vision, ear pain, ear discharge, nose pain, nose congestion, throat pain, throat swelling, mouth pain, mouth swelling, other Cardiovascular: Denies: no symptoms, chest pain, edema, irregular heart rate, lightheadedness, palpitations, syncope, other Respiratory: Denies: no symptoms, cough, orthopnea, shortness of breath, SOB with excertion, SOB at rest, sputum, stridor, wheezing, other Gastrointestinal/Abdominal: Denies: no symptoms, abdomen distended, abdominal pain, black stools, tarry stools, blood in stool, constipated, diarrhea, difficulty swallowing, nausea, poor appetite, poor fluid intake, rectal bleeding , vomiting, other Genitourinary: Denies: no symptoms, burning, discharge, frequency, flank pain, hematuria, incontinence, pain, urgency, other Neurologic/Psychiatric: Denies: no symptoms, anxiety, depressed, emotional problems, headache, numbness, paresthesia, pre-existing deficit, seizure, tingling, tremors, weakness, other Endocrine: Denies: no symptoms, excessive sweating, flushing, intolerance to cold, intolerance to heat, increased hunger, increased thirst, increased urine, unexplained weight gain, unexplained weight loss, other Allergies: Coded Allergies: No Known Allergies (Verified , 06/07/08) Subjective 09/10: no bleeding, no night sweats, no events otherwise, labs pending 09/11: liver biopsy cancelled, no events, tumor markers neg 09/12: no events, no bleeding, h/h reviewed, no f/c 09/13: patient being turned every 2 hrs, seen by gi 09/14: no events, still with abd pain, imaging per gi 09/16: arousable, nonverbal, no events reported 09/17: 5.5L of fluid removed via para, no events otherwise, no f/c 09/18: seen by pulm, gi, no events, wbc is 11.3 09/19: no f/c, no events reported, on heparin sq dvt ppx 09/20: resting in bed, no acute events labs reviewed. 09/21: nonverbal, no acute events, labs reviewed 09/22: non verbal; on nc 2 L, no sign of distress and shortness of breath, cbc for tomorrow morning 09/23: on 2l nc, no fevers or chills reported, labs were reviewed 09/24: no fevers or chills, on oxygen, no bleeding noted, hgb 10 09/25: remains on abx, gt feeds ongoing, fluids were given, seen by cards 09/26: no f/c, no chills reported venturi mask 8L, gtube feeds ongoing, cbc was reviewed, Johnston patent Objective Last 24 Hour Vital Signs Date Time Temp Pulse Resp B/P (MAP) Pulse Ox O2 Delivery O2 Flow Rate FiO2 09/26/18 08:00 98.9 105 22 120/41 (67) 98 09/26/18 07:41 102 09/26/18 07:17 98 22 100 Venturi Mask 8.0 40 09/26/18 07:05 100 Venturi Mask 8.0 40 09/26/18 07:05 85 21 100 Venturi Mask 8.0 40 09/26/18 05:13 104 117/35 09/26/18 04:00 Venturi Mask 14.0 09/26/18 04:00 98.1 104 24 117/35 (62) 99 09/26/18 03:29 99 09/26/18 03:21 97 20 100 Venturi Mask 8.0 40 09/26/18 03:09 88 18 99 Venturi Mask 8.0 40 09/26/18 00:02 110 123/52 09/26/18 00:00 98.2 98 20 123/52 (75) 99 09/26/18 00:00 Venturi Mask 14.0 09/25/18 23:29 114 09/25/18 23:08 103 20 100 Venturi Mask 8.0 40 09/25/18 22:58 98 20 100 Venturi Mask 8.0 40 09/25/18 20:00 Venturi Mask 14.0 09/25/18 20:00 98.6 96 24 112/86 (95) 100 09/25/18 19:55 117 09/25/18 19:21 102 20 100 Venturi Mask 8.0 40 09/25/18 19:07 101 20 98 Venturi Mask 8.0 40 09/25/18 19:06 98 Venturi Mask 8.0 40 09/25/18 18:00 105 20 113/68 (83) 99 09/25/18 18:00 101 98/35 09/25/18 17:00 102 20 102/35 (57) 99 09/25/18 16:00 109 09/25/18 16:00 Venturi Mask 14.0 09/25/18 16:00 98.1 105 20 88/48 (61) 99 09/25/18 15:40 99 16 100 Venturi Mask 8.0 40 09/25/18 15:30 93 17 100 Venturi Mask 8.0 40 09/25/18 15:00 92 17 105/33 (57) 100 09/25/18 14:00 91 18 100/42 (61) 99 09/25/18 13:00 102 20 92/45 (61) 99 09/25/18 12:58 105 109/64 09/25/18 12:00 Venturi Mask 14.0 09/25/18 12:00 98.6 100 17 102/43 (62) 99 09/25/18 12:00 98 09/25/18 11:06 100 18 100 Venturi Mask 8.0 40 09/25/18 11:00 106 18 101/35 (57) 99 09/25/18 10:55 99 16 100 Venturi Mask 8.0 40 Intake and Output 09/25/18 09/26/18 19:00 07:00 Intake Total 1010 ml 990.79 ml Output Total 550 ml 1000 ml Balance 460 ml -9.21 ml Intake Free Water 260 ml 100 ml IV Total 350 ml 620.79 ml Tube Feeding 400 ml 270 ml Output Urine Total 550 ml 800 ml Stool Total 200 ml # Bowel Movements 5 Laboratory Tests 09/25/18 12:21: Arterial Blood pH 7.412, Arterial Blood Partial Pressure CO2 47.2H, Arterial Blood Partial Pressure O2 93.6, Arterial Blood HCO3 29.4H, Arterial Blood Oxygen Saturation 96.5, Arterial Blood Base Excess 4.2H, Juan Alberto Test Positive 09/26/18 04:00: White Blood Count 11.7H, Red Blood Count 3.12L, Hemoglobin 9.4L, Hematocrit 30.2L, Mean Corpuscular Volume 97, Mean Corpuscular Hemoglobin 30.0, Mean Corpuscular Hemoglobin Concent 31.0L, Red Cell Distribution Width 14.3, Platelet Count 184, Mean Platelet Volume 6.0L, Neutrophils (%) (Auto) 81.5H, Lymphocytes (%) (Auto) 12.9L, Monocytes (%) (Auto) 4.5, Eosinophils (%) (Auto) 0.9, Basophils (%) (Auto) 0.2, Sodium Level 150H, Potassium Level 4.3, Chloride Level 115H, Carbon Dioxide Level 29, Anion Gap 6, Blood Urea Nitrogen 74H, Creatinine 1.7H, Estimat Glomerular Filtration Rate , Glucose Level 101, Calcium Level 9.0, Phosphorus Level 4.1, Magnesium Level 2.3, Total Bilirubin 0.5, Aspartate Amino Transf (AST/SGOT) 40H, Alanine Aminotransferase (ALT/SGPT) 16, Alkaline Phosphatase 280H, Total Protein 5.7L, Albumin 1.0L, Globulin 4.7, Albumin/Globulin Ratio 0.2L, Random Vancomycin Level 11.3 09/26/18 09:45: Ammonia [Pending] Height (Feet): 5 Height (Inches): 8.00 Weight (Pounds): 178 Objective Gen: well appearing, no apparent distress, alert Head: normocephalic EENT: PERRL/EOMI, normal ENT inspection Pulm: normal breath sounds, no respiratory distress. NC+ CV: rrr. no mgr GI: normal inspection, non tender, soft, normal bowel sounds, non-distended ++ gtube Rectal: deferred Gu: johnston++ Msk: normal inspection, back normal Neurologic: normal inspection, alert, oriented x3, responsive Psychiatric: normal inspection, judgement/insight normal, memory normal Skin: normal inspection, normal color, no rash, warm/dry, palpation normal, well hydrated Fadi Vicente MD Sep 26, 2018 10:13
--- NOTE | 2018-09-26 10:29 | NUR ---
Social Service Note AN spoke with Sirisha at [facility] [phone]. [facility] will not contract with [facility]. Also they are unable to manage patient's venturi mask, 8 liters FI02 at 40%. AN left a message for Dr. Mary. Will continue to follow up.
--- NOTE | 2018-09-26 10:34 | GI Progress Note ---
Assessment/Plan Problems: (1) Anemia ICD Codes: D64.9 - Anemia, unspecified SNOMED: 954645517 (2) Liver mass ICD Codes: R16.0 - Hepatomegaly, not elsewhere classified SNOMED: 043422719 (3) Fecal impaction ICD Codes: K56.41 - Fecal impaction SNOMED: 02493757 (4) CVA (cerebral vascular accident) ICD Codes: I63.9 - CVA (cerebral vascular accident) SNOMED: 884326621 (5) G tube feedings ICD Codes: Z93.1 - Gastrostomy status SNOMED: 966141349, 095135228, 702400976 (6) Abdominal distension ICD Codes: R14.0 - Abdominal distension (gaseous) SNOMED: 30064686 (7) Constipation ICD Codes: K59.00 - Constipation, unspecified SNOMED: 83254632 Qualifiers: Qualified Codes: K59.00 - Constipation, unspecified Status: unchanged Status Narrative Discussed with Dr. Gonzales. Assessment/Plan Status post paracentesis yielding 5.5 L of fluid abdominal US reviewed >> liver mass. ascites GT change to bigger size, 24french. No reported recurrent GT leak. GT site care per wound care recs >> zinc oxide paste daily G-tube feedings per RD Reglan low dose Monitor H&H, PRN transfusions Turn patient every 2 hours bowel regimen The patient was seen and examined at bedside and all new and available data was reviewed in the patients chart. I agree with the above findings, impression and plan. (Patient seen earlier today. Signature stamp does not reflect patient encounter time.). - Demetris Gonzales MD Subjective Subjective Limited Objective Last 24 Hour Vital Signs Date Time Temp Pulse Resp B/P (MAP) Pulse Ox O2 Delivery O2 Flow Rate FiO2 09/26/18 08:00 98.9 105 22 120/41 (67) 98 09/26/18 07:41 102 09/26/18 07:17 98 22 100 Venturi Mask 8.0 40 09/26/18 07:05 100 Venturi Mask 8.0 40 09/26/18 07:05 85 21 100 Venturi Mask 8.0 40 09/26/18 05:13 104 117/35 09/26/18 04:00 Venturi Mask 14.0 7/25/19 04:00 98.1 104 24 117/35 (62) 99 09/26/18 03:29 99 09/26/18 03:21 97 20 100 Venturi Mask 8.0 40 09/26/18 03:09 88 18 99 Venturi Mask 8.0 40 09/26/18 00:02 110 123/52 09/26/18 00:00 98.2 98 20 123/52 (75) 99 09/26/18 00:00 Venturi Mask 14.0 09/25/18 23:29 114 09/25/18 23:08 103 20 100 Venturi Mask 8.0 40 09/25/18 22:58 98 20 100 Venturi Mask 8.0 40 09/25/18 20:00 Venturi Mask 14.0 09/25/18 20:00 98.6 96 24 112/86 (95) 100 09/25/18 19:55 117 09/25/18 19:21 102 20 100 Venturi Mask 8.0 40 09/25/18 19:07 101 20 98 Venturi Mask 8.0 40 09/25/18 19:06 98 Venturi Mask 8.0 40 09/25/18 18:00 105 20 113/68 (83) 99 09/25/18 18:00 101 98/35 09/25/18 17:00 102 20 102/35 (57) 99 09/25/18 16:00 109 09/25/18 16:00 Venturi Mask 14.0 09/25/18 16:00 98.1 105 20 88/48 (61) 99 09/25/18 15:40 99 16 100 Venturi Mask 8.0 40 09/25/18 15:30 93 17 100 Venturi Mask 8.0 40 09/25/18 15:00 92 17 105/33 (57) 100 09/25/18 14:00 91 18 100/42 (61) 99 09/25/18 13:00 102 20 92/45 (61) 99 09/25/18 12:58 105 109/64 09/25/18 12:00 Venturi Mask 14.0 09/25/18 12:00 98.6 100 17 102/43 (62) 99 09/25/18 12:00 98 09/25/18 11:06 100 18 100 Venturi Mask 8.0 40 7/24/19 11:00 106 18 101/35 (57) 99 09/25/18 10:55 99 16 100 Venturi Mask 8.0 40 Intake and Output 09/25/18 09/26/18 19:00 07:00 Intake Total 1010 ml 990.79 ml Output Total 550 ml 1000 ml Balance 460 ml -9.21 ml Intake Free Water 260 ml 100 ml IV Total 350 ml 620.79 ml Tube Feeding 400 ml 270 ml Output Urine Total 550 ml 800 ml Stool Total 200 ml # Bowel Movements 5 Laboratory Tests Test 09/25/18 12:21 09/26/18 04:00 09/26/18 09:45 Arterial Blood pH 7.412 (7.350-7.450) Arterial Blood Partial Pressure CO2 47.2 mmHg (35.0-45.0) H Arterial Blood Partial Pressure O2 93.6 mmHg (75.0-100.0) Arterial Blood HCO3 29.4 mmol/L (22.0-26.0) H Arterial Blood Oxygen Saturation 96.5 % (95-100) Arterial Blood Base Excess 4.2 (-2-2) H Juan Alberto Test Positive White Blood Count 11.7 K/UL (4.8-10.8) H Red Blood Count 3.12 M/UL (4.70-6.10) L Hemoglobin 9.4 G/DL (14.2-18.0) L Hematocrit 30.2 % (42.0-52.0) L Mean Corpuscular Volume 97 FL (80-99) Mean Corpuscular Hemoglobin 30.0 PG (27.0-31.0) Mean Corpuscular Hemoglobin Concent 31.0 G/DL (32.0-36.0) L Red Cell Distribution Width 14.3 % (11.6-14.8) Platelet Count 184 K/UL (150-450) Mean Platelet Volume 6.0 FL (6.5-10.1) L Neutrophils (%) (Auto) 81.5 % (45.0-75.0) H Lymphocytes (%) (Auto) 12.9 % (20.0-45.0) L Monocytes (%) (Auto) 4.5 % (1.0-10.0) Eosinophils (%) (Auto) 0.9 % (0.0-3.0) Basophils (%) (Auto) 0.2 % (0.0-2.0) Sodium Level 150 MMOL/L (136-145) H Potassium Level 4.3 MMOL/L (3.5-5.1) Chloride Level 115 MMOL/L (98-107) H Carbon Dioxide Level 29 MMOL/L (21-32) Anion Gap 6 mmol/L (5-15) Blood Urea Nitrogen 74 mg/dL (7-18) H Creatinine 1.7 MG/DL (0.55-1.30) H Estimat Glomerular Filtration Rate mL/min (>60) Glucose Level 101 MG/DL (74-106) Calcium Level 9.0 MG/DL (8.5-10.1) Phosphorus Level 4.1 MG/DL (2.5-4.9) Magnesium Level 2.3 MG/DL (1.8-2.4) Total Bilirubin 0.5 MG/DL (0.2-1.0) Aspartate Amino Transf (AST/SGOT) 40 U/L (15-37) H Alanine Aminotransferase (ALT/SGPT) 16 U/L (12-78) Alkaline Phosphatase 280 U/L (46-116) H Total Protein 5.7 G/DL (6.4-8.2) L Albumin 1.0 G/DL (3.4-5.0) L Globulin 4.7 g/dL Albumin/Globulin Ratio 0.2 (1.0-2.7) L Random Vancomycin Level 11.3 ug/mL Ammonia 28 umol/L (11-32) Height (Feet): 5 Height (Inches): 8.00 Weight (Pounds): 178 General Appearance: WD/WN, no apparent distress, alert Cardiovascular: normal rate Respiratory/Chest: normal breath sounds, no respiratory distress, other - venturi mask Abdominal Exam: normal bowel sounds, non tender, soft, GT site Extremities: non-tender Michelle Samuel NP Sep 26, 2018 10:34
--- NOTE | 2018-09-26 10:51 | NUR ---
NURSE NOTES: Ammonia level of 28 reported to Alexx Samuel NP. Patient currently on lactulose 10g TID, received order to discontinue, order noted and carried out.
--- NOTE | 2018-09-26 10:55 | Infectious Diseases Prog Note ---
Assessment/Plan Assessment/Plan antibiotics : vancomycin iv, zosyn A 1. proteus UTI 2. gram negative pneumonia 3. diabetes mellitus 4. hypertension 5. liver mass 6. renal stone P 1. d/c iv vancomycin 2. continue zosyn 3. will follow up cultures Subjective ROS Limited/Unobtainable: Yes Allergies: Coded Allergies: No Known Allergies (Verified , 06/07/08) Objective Vital Signs Last 24 Hour Vital Signs Date Time Temp Pulse Resp B/P (MAP) Pulse Ox O2 Delivery O2 Flow Rate FiO2 09/26/18 08:00 98.9 105 22 120/41 (67) 98 09/26/18 07:41 102 09/26/18 07:17 98 22 100 Venturi Mask 8.0 40 09/26/18 07:05 100 Venturi Mask 8.0 40 09/26/18 07:05 85 21 100 Venturi Mask 8.0 40 09/26/18 05:13 104 117/35 09/26/18 04:00 Venturi Mask 14.0 09/26/18 04:00 98.1 104 24 117/35 (62) 99 09/26/18 03:29 99 09/26/18 03:21 97 20 100 Venturi Mask 8.0 40 09/26/18 03:09 88 18 99 Venturi Mask 8.0 40 09/26/18 00:02 110 123/52 09/26/18 00:00 98.2 98 20 123/52 (75) 99 09/26/18 00:00 Venturi Mask 14.0 09/25/18 23:29 114 09/25/18 23:08 103 20 100 Venturi Mask 8.0 40 09/25/18 22:58 98 20 100 Venturi Mask 8.0 40 09/25/18 20:00 Venturi Mask 14.0 09/25/18 20:00 98.6 96 24 112/86 (95) 100 09/25/18 19:55 117 09/25/18 19:21 102 20 100 Venturi Mask 8.0 40 09/25/18 19:07 101 20 98 Venturi Mask 8.0 40 09/25/18 19:06 98 Venturi Mask 8.0 40 09/25/18 18:00 105 20 113/68 (83) 99 09/25/18 18:00 101 98/35 09/25/18 17:00 102 20 102/35 (57) 99 09/25/18 16:00 109 09/25/18 16:00 Venturi Mask 14.0 09/25/18 16:00 98.1 105 20 88/48 (61) 99 09/25/18 15:40 99 16 100 Venturi Mask 8.0 40 09/25/18 15:30 93 17 100 Venturi Mask 8.0 40 09/25/18 15:00 92 17 105/33 (57) 100 09/25/18 14:00 91 18 100/42 (61) 99 09/25/18 13:00 102 20 92/45 (61) 99 09/25/18 12:58 105 109/64 09/25/18 12:00 Venturi Mask 14.0 09/25/18 12:00 98.6 100 17 102/43 (62) 99 09/25/18 12:00 98 09/25/18 11:06 100 18 100 Venturi Mask 8.0 40 09/25/18 11:00 106 18 101/35 (57) 99 09/25/18 10:55 99 16 100 Venturi Mask 8.0 40 Height (Feet): 5 Height (Inches): 8.00 Weight (Pounds): 178 Respiratory/Chest: lungs clear Cardiovascular: normal rate, regular rhythm, no gallop/murmur Abdomen: soft, non tender, other - GT Extremities: no edema Microbiology Date/Time Source Procedure Growth Status 09/24/18 07:50 Blood Blood Culture - Preliminary NO GROWTH AFTER 24 HOURS Resulted 09/24/18 07:35 Blood Blood Culture - Preliminary NO GROWTH AFTER 24 HOURS Resulted 09/24/18 08:00 Sputum Induced Gram Stain - Final Resulted 09/24/18 08:00 Sputum Culture - Preliminary Gram Negative Michael Resulted 09/24/18 07:45 Indwelling Cath Urine Culture - Final Proteus Mirabilis Mixed Gram Positive Organism Complete Laboratory Tests Test 09/25/18 12:21 09/26/18 04:00 09/26/18 09:45 Arterial Blood pH 7.412 (7.350-7.450) Arterial Blood Partial Pressure CO2 47.2 mmHg (35.0-45.0) H Arterial Blood Partial Pressure O2 93.6 mmHg (75.0-100.0) Arterial Blood HCO3 29.4 mmol/L (22.0-26.0) H Arterial Blood Oxygen Saturation 96.5 % (95-100) Arterial Blood Base Excess 4.2 (-2-2) H Juan Alberto Test Positive White Blood Count 11.7 K/UL (4.8-10.8) H Red Blood Count 3.12 M/UL (4.70-6.10) L Hemoglobin 9.4 G/DL (14.2-18.0) L Hematocrit 30.2 % (42.0-52.0) L Mean Corpuscular Volume 97 FL (80-99) Mean Corpuscular Hemoglobin 30.0 PG (27.0-31.0) Mean Corpuscular Hemoglobin Concent 31.0 G/DL (32.0-36.0) L Red Cell Distribution Width 14.3 % (11.6-14.8) Platelet Count 184 K/UL (150-450) Mean Platelet Volume 6.0 FL (6.5-10.1) L Neutrophils (%) (Auto) 81.5 % (45.0-75.0) H Lymphocytes (%) (Auto) 12.9 % (20.0-45.0) L Monocytes (%) (Auto) 4.5 % (1.0-10.0) Eosinophils (%) (Auto) 0.9 % (0.0-3.0) Basophils (%) (Auto) 0.2 % (0.0-2.0) Sodium Level 150 MMOL/L (136-145) H Potassium Level 4.3 MMOL/L (3.5-5.1) Chloride Level 115 MMOL/L (98-107) H Carbon Dioxide Level 29 MMOL/L (21-32) Anion Gap 6 mmol/L (5-15) Blood Urea Nitrogen 74 mg/dL (7-18) H Creatinine 1.7 MG/DL (0.55-1.30) H Estimat Glomerular Filtration Rate mL/min (>60) Glucose Level 101 MG/DL (74-106) Calcium Level 9.0 MG/DL (8.5-10.1) Phosphorus Level 4.1 MG/DL (2.5-4.9) Magnesium Level 2.3 MG/DL (1.8-2.4) Total Bilirubin 0.5 MG/DL (0.2-1.0) Aspartate Amino Transf (AST/SGOT) 40 U/L (15-37) H Alanine Aminotransferase (ALT/SGPT) 16 U/L (12-78) Alkaline Phosphatase 280 U/L (46-116) H Total Protein 5.7 G/DL (6.4-8.2) L Albumin 1.0 G/DL (3.4-5.0) L Globulin 4.7 g/dL Albumin/Globulin Ratio 0.2 (1.0-2.7) L Random Vancomycin Level 11.3 ug/mL Ammonia 28 umol/L (11-32) Current Medications Medications (Trade) Dose Ordered Sig/Reagan Route PRN Reason Start Time Stop Time Status Last Admin Dose Admin Acetaminophen (Tylenol) 650 mg Q4H PRN GT Mild Pain/Temp > 100.5 09/25/18 19:30 10/09/18 19:29 Albuterol/ Ipratropium (Albuterol/ Ipratropium) 3 ml Q4HRT HHN 09/25/18 23:00 09/26/18 18:59 09/26/18 07:05 Artificial Tears (Akwa-Tears) 1 drop EVERY 12 HOURS BOTH EYES 09/25/18 21:00 10/15/18 20:59 09/26/18 08:57 Dextrose 1,000 ml @ 50 mls/hr Q20H IV 09/25/18 19:30 10/25/18 13:29 09/25/18 19:47 Dextrose (Dextrose 50%) 25 ml Q30M PRN IV Hypoglycemia 09/25/18 19:30 10/03/18 21:29 Dextrose (Dextrose 50%) 50 ml Q30M PRN IV Hypoglycemia 09/25/18 19:30 10/03/18 21:29 Docusate Sodium (Colace) 100 mg BID GT 09/26/18 09:00 10/04/18 08:59 09/26/18 08:56 Donepezil HCl (Aricept) 10 mg BEDTIME GT 09/25/18 21:00 10/04/18 20:59 09/25/18 21:02 Heparin Sodium (Porcine) (Heparin 5000 units/ml) 5,000 units EVERY 12 HOURS SUBQ 09/25/18 21:00 10/04/18 08:59 09/26/18 08:59 Insulin Aspart (NovoLOG) EVERY 6 HOURS SUBQ 09/26/18 00:00 10/10/18 06:59 09/26/18 05:16 Insulin Detemir (Levemir) 10 units DAILY SUBQ 09/26/18 09:00 10/24/18 08:59 09/26/18 09:00 Lactulose (Cephulac) 10 gm THREE TIMES A DAY GT 09/26/18 09:00 10/08/18 12:59 09/26/18 08:56 Metoclopramide HCl (Reglan) 5 mg Q8H PRN IVP Nausea & Vomiting 09/25/18 19:30 10/25/18 19:29 Metoprolol Tartrate (Lopressor) 25 mg Q6HR ORAL 09/26/18 00:00 10/25/18 11:59 09/26/18 05:13 Mineral Oil (Mineral Oil) 30 ml DAILYPRN PRN GT Constipation 09/25/18 19:30 10/25/18 19:29 Piperacillin Sod/ Tazobactam Sod 3.375 gm/Sodium Chloride 110 ml @ 27.5 mls/hr Q8HR@0000,0800,1600 IVPB 09/26/18 00:00 09/29/18 07:59 09/26/18 08:16 Polyethylene Glycol (Miralax) 17 gm BEDTIME GT 09/25/18 21:00 10/06/18 20:59 09/25/18 21:02 Vancomycin HCl (Vanco rx to dose) 1 ea DAILY PRN MISC Per rx protocol 09/26/18 09:00 10/24/18 05:59 Vitamin D (Vitamin D) 1,000 intlu TWICE A DAY GT 09/26/18 09:00 10/04/18 08:59 09/26/18 08:57 Zinc Oxide (Desitin) 1 applic EVERY 8 HOURS TOPIC 09/25/18 22:00 10/08/18 06:59 09/26/18 05:13 Clari Whitten MD Sep 26, 2018 10:55
[2018-09-26 12:00] VITALS: BP 126/71
--- NOTE | 2018-09-26 12:30 | Surgery Progress Note ---
Surgery Progress Note Subjective Additional Comments downgraded from ICU repeat US noted. still with ascites may need another tap Objective Last 24 Hour Vital Signs Date Time Temp Pulse Resp B/P (MAP) Pulse Ox O2 Delivery O2 Flow Rate FiO2 09/26/18 12:17 98 126/71 09/26/18 12:00 99.0 98 23 126/71 (89) 98 09/26/18 11:29 Venturi Mask 8.0 40 09/26/18 11:29 Venturi Mask 8.0 40 09/26/18 08:00 98.9 105 22 120/41 (67) 98 09/26/18 08:00 Venturi Mask 8.0 09/26/18 07:41 102 09/26/18 07:17 98 22 100 Venturi Mask 8.0 40 09/26/18 07:05 100 Venturi Mask 8.0 40 09/26/18 07:05 85 21 100 Venturi Mask 8.0 40 09/26/18 05:13 104 117/35 09/26/18 04:00 Venturi Mask 14.0 09/26/18 04:00 98.1 104 24 117/35 (62) 99 09/26/18 03:29 99 09/26/18 03:21 97 20 100 Venturi Mask 8.0 40 09/26/18 03:09 88 18 99 Venturi Mask 8.0 40 09/26/18 00:02 110 123/52 09/26/18 00:00 98.2 98 20 123/52 (75) 99 09/26/18 00:00 Venturi Mask 14.0 09/25/18 23:29 114 09/25/18 23:08 103 20 100 Venturi Mask 8.0 40 09/25/18 22:58 98 20 100 Venturi Mask 8.0 40 09/25/18 20:00 Venturi Mask 14.0 09/25/18 20:00 98.6 96 24 112/86 (95) 100 09/25/18 19:55 117 09/25/18 19:21 102 20 100 Venturi Mask 8.0 40 09/25/18 19:07 101 20 98 Venturi Mask 8.0 40 09/25/18 19:06 98 Venturi Mask 8.0 40 09/25/18 18:00 105 20 113/68 (83) 99 09/25/18 18:00 101 98/35 09/25/18 17:00 102 20 102/35 (57) 99 09/25/18 16:00 109 09/25/18 16:00 Venturi Mask 14.0 09/25/18 16:00 98.1 105 20 88/48 (61) 99 09/25/18 15:40 99 16 100 Venturi Mask 8.0 40 09/25/18 15:30 93 17 100 Venturi Mask 8.0 40 09/25/18 15:00 92 17 105/33 (57) 100 09/25/18 14:00 91 18 100/42 (61) 99 09/25/18 13:00 102 20 92/45 (61) 99 09/25/18 12:58 105 109/64 I&O Intake and Output 09/25/18 09/26/18 19:00 07:00 Intake Total 1010 ml 1035.79 ml Output Total 550 ml 1000 ml Balance 460 ml 35.79 ml Intake Free Water 260 ml 100 ml IV Total 350 ml 620.79 ml Tube Feeding 400 ml 315 ml Output Urine Total 550 ml 800 ml Stool Total 200 ml # Bowel Movements 5 Cardiovascular: RSR Respiratory: clear Abdomen: soft, distended, present bowel sounds Extremities: no cyanosis Laboratory Tests Test 09/26/18 04:00 09/26/18 09:45 White Blood Count 11.7 K/UL (4.8-10.8) H Red Blood Count 3.12 M/UL (4.70-6.10) L Hemoglobin 9.4 G/DL (14.2-18.0) L Hematocrit 30.2 % (42.0-52.0) L Mean Corpuscular Volume 97 FL (80-99) Mean Corpuscular Hemoglobin 30.0 PG (27.0-31.0) Mean Corpuscular Hemoglobin Concent 31.0 G/DL (32.0-36.0) L Red Cell Distribution Width 14.3 % (11.6-14.8) Platelet Count 184 K/UL (150-450) Mean Platelet Volume 6.0 FL (6.5-10.1) L Neutrophils (%) (Auto) 81.5 % (45.0-75.0) H Lymphocytes (%) (Auto) 12.9 % (20.0-45.0) L Monocytes (%) (Auto) 4.5 % (1.0-10.0) Eosinophils (%) (Auto) 0.9 % (0.0-3.0) Basophils (%) (Auto) 0.2 % (0.0-2.0) Sodium Level 150 MMOL/L (136-145) H Potassium Level 4.3 MMOL/L (3.5-5.1) Chloride Level 115 MMOL/L (98-107) H Carbon Dioxide Level 29 MMOL/L (21-32) Anion Gap 6 mmol/L (5-15) Blood Urea Nitrogen 74 mg/dL (7-18) H Creatinine 1.7 MG/DL (0.55-1.30) H Estimat Glomerular Filtration Rate mL/min (>60) Glucose Level 101 MG/DL (74-106) Calcium Level 9.0 MG/DL (8.5-10.1) Phosphorus Level 4.1 MG/DL (2.5-4.9) Magnesium Level 2.3 MG/DL (1.8-2.4) Total Bilirubin 0.5 MG/DL (0.2-1.0) Aspartate Amino Transf (AST/SGOT) 40 U/L (15-37) H Alanine Aminotransferase (ALT/SGPT) 16 U/L (12-78) Alkaline Phosphatase 280 U/L (46-116) H Total Protein 5.7 G/DL (6.4-8.2) L Albumin 1.0 G/DL (3.4-5.0) L Globulin 4.7 g/dL Albumin/Globulin Ratio 0.2 (1.0-2.7) L Random Vancomycin Level 11.3 ug/mL Ammonia 28 umol/L (11-32) Plan Problems: (1) Abdominal distension Assessment & Plan: improved tolerating diet exam unchanged with fluid but no sbo possible declining liver function with declining real function abdomen becoming distended again likely fluid filled repeat US noted may need another tap (2) Malnutrition Assessment & Plan: Evolving DTPI sacrum. Base of wound has 100% soft necrosis ( L)2.5cm x (W)3.2cm with surrounding non-blanchable erythema with induration noted. (L)6.5cm x(W)8cm. Erythema noted to scrotum . Non-blanchable erythema with fluctuance L heel. Non-blanchable erythema without fluctuance R heel. G site erythematous with denuded skin. Surrounding adhesive related skin tears noted to surrounding skin with small amt sanguineous exudate.Area gentlyu cleansed with soap and water .Pat dried. Zinc Oxide paste applied to GT site and surrounding skin damage . 4 x $ drain gauze appied around Gt site without tape. Recommended to primary nurse to avoid taping gauze around Gt . Tx.Plan: Cleanse Sacral wound with Saline. Apply Therahoney. Apply Moisture Barrier Periwound. Cover with Optifoam drsg. Change every 3 days and prn. Apply Moisture Barrier Paste to Bilat groin and scrotum with each incontinence care. Gently cleanse GT site with Soap and water. Pat dry. Apply Zinc Oxide paste daily and prn.Place 4x4 gauze around GT. Do Not Tape Gauze. Apply Cavilon Skin Barrier to both heels. Cover each heel with Optifoam drsg. Change every 7 days and prn. APM/WIL Mattress. Reposition at least every 2hours or as tolerated. Off-load heels with pillow. Jesse Cash Sep 26, 2018 12:30
--- NOTE | 2018-09-26 13:03 | NUR ---
Social Service Note Referrals faxed to: Donna at [facility] [phone] (p) [phone] (f) Evelyn at [facility] [phone] (p) [phone] (f) Miguelina from [facility] is also attempting to locate a facility for hospice placement.
--- NOTE | 2018-09-26 13:11 | NUR ---
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 99.0 HR 105 RR 23 B/P 120/41 VM FIO2 40% WBC 11.7 AMMONIA 28 AST 40 ALK PHOS 280 NA 150 BUN 74 CR 1.7 IS: ZOSYN IV HEPARIN SUBC DCP HOSPICE STEP DOWN STATUS
--- NOTE | 2018-09-26 14:39 | NUR ---
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
--- NOTE | 2018-09-26 15:06 | Nephrology Progress Note ---
Assessment/Plan Plan Sepsis Hypernatremia Na still 150. - to increase free H2O. MARIXA worsening GFR. Monitor Labs. Subjective Subjective In JV. Objective Objective Last 24 Hour Vital Signs Date Time Temp Pulse Resp B/P (MAP) Pulse Ox O2 Delivery O2 Flow Rate FiO2 09/26/18 12:17 98 126/71 09/26/18 12:00 Venturi Mask 8.0 09/26/18 12:00 99.0 98 23 126/71 (89) 98 09/26/18 11:29 Venturi Mask 8.0 40 09/26/18 11:29 Venturi Mask 8.0 40 09/26/18 08:00 98.9 105 22 120/41 (67) 98 09/26/18 08:00 Venturi Mask 8.0 09/26/18 07:41 102 09/26/18 07:17 98 22 100 Venturi Mask 8.0 40 09/26/18 07:05 100 Venturi Mask 8.0 40 09/26/18 07:05 85 21 100 Venturi Mask 8.0 40 09/26/18 05:13 104 117/35 09/26/18 04:00 Venturi Mask 14.0 09/26/18 04:00 98.1 104 24 117/35 (62) 99 09/26/18 03:29 99 09/26/18 03:21 97 20 100 Venturi Mask 8.0 40 09/26/18 03:09 88 18 99 Venturi Mask 8.0 40 09/26/18 00:02 110 123/52 09/26/18 00:00 98.2 98 20 123/52 (75) 99 09/26/18 00:00 Venturi Mask 14.0 09/25/18 23:29 114 09/25/18 23:08 103 20 100 Venturi Mask 8.0 40 09/25/18 22:58 98 20 100 Venturi Mask 8.0 40 09/25/18 20:00 Venturi Mask 14.0 09/25/18 20:00 98.6 96 24 112/86 (95) 100 09/25/18 19:55 117 09/25/18 19:21 102 20 100 Venturi Mask 8.0 40 09/25/18 19:07 101 20 98 Venturi Mask 8.0 40 09/25/18 19:06 98 Venturi Mask 8.0 40 09/25/18 18:00 105 20 113/68 (83) 99 09/25/18 18:00 101 98/35 09/25/18 17:00 102 20 102/35 (57) 99 09/25/18 16:00 109 09/25/18 16:00 Venturi Mask 14.0 09/25/18 16:00 98.1 105 20 88/48 (61) 99 09/25/18 15:40 99 16 100 Venturi Mask 8.0 40 09/25/18 15:30 93 17 100 Venturi Mask 8.0 40 Intake and Output 09/25/18 09/26/18 19:00 07:00 Intake Total 1010 ml 1035.79 ml Output Total 550 ml 1000 ml Balance 460 ml 35.79 ml Intake Free Water 260 ml 100 ml IV Total 350 ml 620.79 ml Tube Feeding 400 ml 315 ml Output Urine Total 550 ml 800 ml Stool Total 200 ml # Bowel Movements 5 Laboratory Tests 09/26/18 04:00: White Blood Count 11.7H, Red Blood Count 3.12L, Hemoglobin 9.4L, Hematocrit 30.2L, Mean Corpuscular Volume 97, Mean Corpuscular Hemoglobin 30.0, Mean Corpuscular Hemoglobin Concent 31.0L, Red Cell Distribution Width 14.3, Platelet Count 184, Mean Platelet Volume 6.0L, Neutrophils (%) (Auto) 81.5H, Lymphocytes (%) (Auto) 12.9L, Monocytes (%) (Auto) 4.5, Eosinophils (%) (Auto) 0.9, Basophils (%) (Auto) 0.2, Sodium Level 150H, Potassium Level 4.3, Chloride Level 115H, Carbon Dioxide Level 29, Anion Gap 6, Blood Urea Nitrogen 74H, Creatinine 1.7H, Estimat Glomerular Filtration Rate , Glucose Level 101, Calcium Level 9.0, Phosphorus Level 4.1, Magnesium Level 2.3, Total Bilirubin 0.5, Aspartate Amino Transf (AST/SGOT) 40H, Alanine Aminotransferase (ALT/SGPT) 16, Alkaline Phosphatase 280H, Total Protein 5.7L, Albumin 1.0L, Globulin 4.7, Albumin/Globulin Ratio 0.2L, Random Vancomycin Level 11.3 09/26/18 09:45: Ammonia 28 Height (Feet): 5 Height (Inches): 8.00 Weight (Pounds): 178 Objective Confused. NAD CV RR Lungs B mike Crane. SNT. BS + E No CCE Ifrah Gorman MD Sep 26, 2018 15:06
--- NOTE | 2018-09-26 15:39 | NUR ---
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 Per charge nurse Scarlet, patient okay to discharge.
[2018-09-26 16:00] VITALS: BP 116/59
[2018-09-26] MEDS ORDERED: Tubing IV Secondary IV ONE (17:58)
[2018-09-26] MEDS ORDERED: NS 275ml ONE (17:58)
--- NOTE | 2018-09-26 19:20 | NUR ---
HAND-OFF: Report given to Stephane Alfredo RN.
--- NOTE | 2018-09-26 19:22 | NUR ---
NURSE NOTES: Received patient from ISMAEL Herrera. patient is AO X1, resting in bed, no s/sx of pain noted at this time. patient is receiving 8 L O2, FiO2 40% via Venturi mask, tolerating well; no s/sx of respiratory distress noted at this time. G-tube site is patent and intact, running feeding at prescribed rate. HOB elevated, no residual noted. F/C and rectal tube are patent and intact, draining well. IV sites are patent and intact, running fluids at prescribed rate. bed in lowest position and locked, siderails up X3, call light within reach. will continue to monitor.
[2018-09-26 20:00] VITALS: BP 116/51
[2018-09-26] MEDS: Miralax 17gm pkt GT SCH (21:23)
[2018-09-26] MEDS: Donepezil 10mg tab GT SCH (21:23)
--- NOTE | 2018-09-26 22:00 | NUR ---
NURSE NOTES: upon assessment, noted wound on left anterior thigh measuring 2 cm X 1 cm. pictures taken. optifoam dressing applied.
[2018-09-27] VITALS: BP 118/65
[2018-09-27] MEDS: Metoprolol 25mg tab ORAL SCH ×4 (00:24→17:46)
[2018-09-27] MEDS: Piperacillin/Tazobactam 3.375 GM in NS 110 ML IVPB SCH ×2 (00:27→08:00)
[2018-09-27] MEDS: NovoLOG Insulin Flexpen SUBQ SCH ×4 (00:30→17:47)
--- NOTE | 2018-09-27 02:45 | Progress Note ---
DATE: 09/26/2018 CARDIOLOGY PROGRESS NOTE SUBJECTIVE: The patient continues to require hydration with management of metabolic and renal dysfunction. He remains withdrawn and lethargic. Family members are considering comfort care plan. OBJECTIVE: VITAL SIGNS: Blood pressure 116/51, pulse 85, and respirations 20. Afebrile. LUNGS: Diminished breath sounds. HEART: Regular rhythm and rate. Normal S1, S2. ABDOMEN: Soft. Slightly distended. EXTREMITIES: With trace dependent edema. LABORATORY DATA: White count 11.7 and hemoglobin 9.4. Sodium 150, potassium 4.3, bicarbonate 29, BUN 74, and creatinine 1.7. Albumin 1.0. IMPRESSION: 1. Multiorgan system failure. 2. Persistent dehydration, hypernatremia, prerenal azotemia, and acute on chronic renal failure. 3. Hypertensive heart disease with acute on chronic diastolic congestive heart failure. 4. Permanent pacemaker with paroxysmal atrial fibrillation. 5. Cerebrovascular disease with dementia. 6. Proteus urinary tract infection. 7. Gram-negative pneumonia. PLAN: 1. Antimicrobials. 2. Hydration with hypotonic IV fluids. 3. Nutritional support by G-tube. 4. DVT prophylaxis. 5. Maintain beta-blockade. Marcellus Richards M.D. DR: KARLEE JOB#: [id number] CC:
[2018-09-27] MEDS: Albuterol/Ipratropium 3ml neb HHN SCH ×4 (03:21→15:02)
[2018-09-27 04:00] VITALS: BP 105/69
[2018-09-27 04:56] LABS: BASOPHILS % (AUTO) 0.3 % (0.0-2.0); EOSINOPHILS % (AUTO) 0.7 % (0.0-3.0); HEMOGLOBIN 9.7 G/DL (14.2-18.0); LYMPHOCYTES % (AUTO) 15.3 % (20.0-45.0); MEAN CORPUSCULAR VOLUME 97 FL (80-99); MONOCYTES % (AUTO) 4.9 % (1.0-10.0); NEUTROPHILS % (AUTO) 78.9 % (45.0-75.0); PLATELET COUNT 185 K/UL (150-450); RED BLOOD COUNT 3.19 M/UL (4.70-6.10); RED CELL DISTRIBUTION WIDTH 14.3 % (11.6-14.8); WHITE BLOOD COUNT 13.9 K/UL (4.8-10.8)
[2018-09-27] MEDS: Desitin Rash Paste TOPIC SCH ×2 (06:01→13:48)
[2018-09-27 06:02] LABS: ANION GAP 11 mmol/L (5-15); BLOOD UREA NITROGEN 73 mg/dL (7-18); CALCIUM 8.8 MG/DL (8.5-10.1); CARBON DIOXIDE 23 MMOL/L (21-32); CHLORIDE 112 MMOL/L (98-107); CREATININE 1.9 MG/DL (0.55-1.30); POTASSIUM 4.8 MMOL/L (3.5-5.1); SODIUM 146 MMOL/L (136-145)
--- NOTE | 2018-09-27 07:30 | NUR ---
HAND-OFF: Report given to ISMAEL Carrillo. patient is in stable condition.
--- NOTE | 2018-09-27 07:33 | NUR ---
NURSE NOTES: Report received from ISMAEL Varghese. Observed patient in bed. Open eyes with voice but non-verbal. On 6L of oxygen via venturi mask with no distress noted. No s/s of pain at this time. IVF running at prescribed rate. GT site intact with ongoing feeding. HOB elevated. No residual noted. F/C and rectal tube intact and draining well. Bed in lowest position. Call light within reach. Will continue to monitor.
[2018-09-27 07:50] VITALS: BP 108/45
[2018-09-27] MEDS: Docusate 100mg/10ml Liq GT SCH ×2 (08:00→17:43)
[2018-09-27] MEDS: Vitamin D 1000 IU Tab GT SCH ×2 (08:00→17:46)
[2018-09-27] MEDS: Artificial Tears 1.4% Op Soln BOTH EYES SCH (08:00)
[2018-09-27] MEDS: Heparin 5000 units/ml inj SUBQ SCH (08:01)
[2018-09-27] MEDS: Levemir Flexpen SUBQ SCH (08:02)
--- NOTE | 2018-09-27 08:52 | Hematology/Onc Progress Note ---
Assessment/Plan Assessment/Plan Assessment and Recs # Liver mass - large heterogeneous mass in the right lobe of the liver suspicious for malignant neoplasm, us of the abdomen was reviewed --> imaging has been reviewed and c/w likely malignancy on ct and us as well --> as per Gi recs, defer tumor biopsy, has been present prior admission --> treatment once have results of primary --> imaging as needed r/o ascites --> tumor markers reviewed are wnl --> dc to snf with hospice, remains acute with multiorgan failure (at this time hold biopsy) per pcp # Anemia of chronic disease due to underlying chronic medical issues, multifactorial --> Anemia workup reviewed, rule out gi bleed, ferritin is 118 --> No evidence of hemolysis is noted, peripheral smear has been reviewed. --> Hgb goal >7. Transfuse prn. --> Epogen or iron at this time is not particularly indicated --> Medications have been reviewed --> improved trend 10-->10.5-->9.2-->9.4-->9.7 # Hypercalcemia - on admission elev, due to likely dehydration --> Ca has improved, on ivf --> on IVF also for hypernatremia --> per renal recs # Fecal impaction/constipation --> on colace, senna as per gi recs # Abdominal distension --> improved mildly, per gi # DVT ppx with heparin sq The timing of this note does not necessarily reflect the time of the patient was seen. GREATLY APPRECIATE CONSULTATION. Subjective Constitutional: Denies: no symptoms, chills, fever, malaise, weakness, other HEENT: Denies: no symptoms, eye pain, blurred vision, tearing, double vision, ear pain, ear discharge, nose pain, nose congestion, throat pain, throat swelling, mouth pain, mouth swelling, other Cardiovascular: Denies: no symptoms, chest pain, edema, irregular heart rate, lightheadedness, palpitations, syncope, other Respiratory: Denies: no symptoms, cough, shortness of breath, SOB with excertion, SOB at rest, sputum, wheezing, other Gastrointestinal/Abdominal: Denies: no symptoms, abdomen distended, abdominal pain, black stools, tarry stools, blood in stool, constipated, diarrhea, difficulty swallowing, nausea, poor appetite, poor fluid intake, rectal bleeding , vomiting, other Genitourinary: Denies: no symptoms, burning, discharge, frequency, flank pain, hematuria, incontinence, pain, urgency, other Neurologic/Psychiatric: Denies: no symptoms, anxiety, depressed, emotional problems, headache, numbness, paresthesia, pre-existing deficit, seizure, tingling, tremors, weakness, other Allergies: Coded Allergies: No Known Allergies (Verified , 06/07/08) Subjective 09/10: no bleeding, no night sweats, no events otherwise, labs pending 09/11: liver biopsy cancelled, no events, tumor markers neg 09/12: no events, no bleeding, h/h reviewed, no f/c 09/13: patient being turned every 2 hrs, seen by gi 09/14: no events, still with abd pain, imaging per gi 09/16: arousable, nonverbal, no events reported 09/17: 5.5L of fluid removed via para, no events otherwise, no f/c 09/18: seen by pulm, gi, no events, wbc is 11.3 09/19: no f/c, no events reported, on heparin sq dvt ppx 09/20: resting in bed, no acute events labs reviewed. 09/21: nonverbal, no acute events, labs reviewed 09/22: non verbal; on nc 2 L, no sign of distress and shortness of breath, cbc for tomorrow morning 09/23: on 2l nc, no fevers or chills reported, labs were reviewed 09/24: no fevers or chills, on oxygen, no bleeding noted, hgb 10 09/25: remains on abx, gt feeds ongoing, fluids were given, seen by cards 09/26: no f/c, no chills reported venturi mask 8L, gtube feeds ongoing, cbc was reviewed, Johnston patent 09/27: no f/c, on ivf, On 6L of oxygen via venturi mask, cr stable Objective Objective Current Medications Medications (Trade) Dose Ordered Sig/Reagan Route PRN Reason Start Time Stop Time Status Last Admin Dose Admin Acetaminophen (Tylenol) 650 mg Q4H PRN GT Mild Pain/Temp > 100.5 09/25/18 19:30 10/09/18 19:29 Albuterol/ Ipratropium (Albuterol/ Ipratropium) 3 ml Q4HRT HHN 09/26/18 19:00 10/01/18 18:59 09/27/18 07:14 Artificial Tears (Akwa-Tears) 1 drop EVERY 12 HOURS BOTH EYES 09/25/18 21:00 10/15/18 20:59 09/27/18 08:00 Dextrose 1,000 ml @ 75 mls/hr [id number] IV 09/26/18 15:30 10/25/18 15:29 09/27/18 05:00 Dextrose (Dextrose 50%) 25 ml Q30M PRN IV Hypoglycemia 09/25/18 19:30 10/03/18 21:29 Dextrose (Dextrose 50%) 50 ml Q30M PRN IV Hypoglycemia 09/25/18 19:30 10/03/18 21:29 Docusate Sodium (Colace) 100 mg BID GT 09/26/18 09:00 10/04/18 08:59 09/27/18 08:00 Donepezil HCl (Aricept) 10 mg BEDTIME GT 09/25/18 21:00 10/04/18 20:59 09/26/18 21:23 Heparin Sodium (Porcine) (Heparin 5000 units/ml) 5,000 units EVERY 12 HOURS SUBQ 09/25/18 21:00 10/04/18 08:59 09/27/18 08:01 Insulin Aspart (NovoLOG) EVERY 6 HOURS SUBQ 09/26/18 00:00 10/10/18 06:59 09/27/18 06:01 Insulin Detemir (Levemir) 10 units DAILY SUBQ 09/26/18 09:00 10/24/18 08:59 09/27/18 08:02 Metoclopramide HCl (Reglan) 5 mg Q8H PRN IVP Nausea & Vomiting 09/25/18 19:30 10/25/18 19:29 Metoprolol Tartrate (Lopressor) 25 mg Q6HR ORAL 09/26/18 00:00 10/25/18 11:59 09/27/18 05:59 Mineral Oil (Mineral Oil) 30 ml DAILYPRN PRN GT Constipation 09/25/18 19:30 10/25/18 19:29 Piperacillin Sod/ Tazobactam Sod 3.375 gm/Sodium Chloride 110 ml @ 27.5 mls/hr Q8HR@0000,0800,1600 IVPB 09/26/18 00:00 09/29/18 07:59 09/27/18 08:00 Polyethylene Glycol (Miralax) 17 gm BEDTIME GT 09/25/18 21:00 10/06/18 20:59 09/26/18 21:23 Vitamin D (Vitamin D) 1,000 intlu TWICE A DAY GT 09/26/18 09:00 10/04/18 08:59 09/27/18 08:00 Zinc Oxide (Desitin) 1 applic EVERY 8 HOURS TOPIC 09/25/18 22:00 10/08/18 06:59 09/27/18 06:01 Last 24 Hour Vital Signs Date Time Temp Pulse Resp B/P (MAP) Pulse Ox O2 Delivery O2 Flow Rate FiO2 09/27/18 08:00 Venturi Mask 6.0 09/27/18 07:50 98.1 96 23 108/45 (66) 98 09/27/18 07:25 92 17 99 Venturi Mask 6.0 35 09/27/18 07:14 99 Venturi Mask 8.0 40 09/27/18 07:14 84 16 99 Venturi Mask 8.0 40 09/27/18 05:59 98 109/50 09/27/18 04:00 Venturi Mask 8.0 09/27/18 04:00 94 09/27/18 04:00 97.6 84 20 105/69 (81) 100 09/27/18 03:36 91 20 100 Venturi Mask 8.0 40 09/27/18 03:19 90 20 98 Venturi Mask 8.0 40 09/27/18 00:24 98 118/65 09/27/18 00:00 103 09/27/18 00:00 Venturi Mask 8.0 09/27/18 00:00 98.4 98 20 118/65 (82) 98 09/26/18 23:00 95 20 100 Venturi Mask 8.0 40 09/26/18 22:52 84 20 98 Venturi Mask 8.0 40 09/26/18 20:33 78 20 99 Venturi Mask 8.0 40 09/26/18 20:19 83 20 98 Venturi Mask 8.0 40 09/26/18 20:18 83 20 98 Venturi Mask 8.0 40 09/26/18 20:17 98 Venturi Mask 8.0 40 09/26/18 20:00 98.1 85 20 116/51 (72) 98 09/26/18 20:00 Venturi Mask 8.0 09/26/18 20:00 93 09/26/18 17:57 98 120/53 09/26/18 16:00 99.0 86 22 116/59 (78) 98 09/26/18 16:00 84 09/26/18 16:00 Venturi Mask 8.0 09/26/18 15:23 88 21 100 Venturi Mask 8.0 40 09/26/18 15:13 87 19 98 Venturi Mask 8.0 40 09/26/18 12:17 98 126/71 09/26/18 12:00 Venturi Mask 8.0 09/26/18 12:00 99.0 98 23 126/71 (89) 98 09/26/18 11:54 94 09/26/18 11:29 Venturi Mask 8.0 40 09/26/18 11:29 Venturi Mask 8.0 40 09/26/18 08:00 98.9 105 22 120/41 (67) 98 09/26/18 08:00 Venturi Mask 8.0 09/26/18 07:41 102 09/26/18 07:17 98 22 100 Venturi Mask 8.0 40 09/26/18 07:05 100 Venturi Mask 8.0 40 09/26/18 07:05 85 21 100 Venturi Mask 8.0 40 09/26/18 05:13 104 117/35 09/26/18 04:00 Venturi Mask 14.0 09/26/18 04:00 98.1 104 24 117/35 (62) 99 09/26/18 03:29 99 09/26/18 03:21 97 20 100 Venturi Mask 8.0 40 09/26/18 03:09 88 18 99 Venturi Mask 8.0 40 09/26/18 00:02 110 123/52 09/26/18 00:00 98.2 98 20 123/52 (75) 99 09/26/18 00:00 Venturi Mask 14.0 09/25/18 23:29 114 09/25/18 23:08 103 20 100 Venturi Mask 8.0 40 09/25/18 22:58 98 20 100 Venturi Mask 8.0 40 09/25/18 20:00 Venturi Mask 14.0 09/25/18 20:00 98.6 96 24 112/86 (95) 100 09/25/18 19:55 117 09/25/18 19:21 102 20 100 Venturi Mask 8.0 40 09/25/18 19:07 101 20 98 Venturi Mask 8.0 40 09/25/18 19:06 98 Venturi Mask 8.0 40 09/25/18 18:00 105 20 113/68 (83) 99 09/25/18 18:00 101 98/35 09/25/18 17:00 102 20 102/35 (57) 99 09/25/18 16:00 109 09/25/18 16:00 Venturi Mask 14.0 09/25/18 16:00 98.1 105 20 88/48 (61) 99 09/25/18 15:40 99 16 100 Venturi Mask 8.0 40 09/25/18 15:30 93 17 100 Venturi Mask 8.0 40 09/25/18 15:00 92 17 105/33 (57) 100 09/25/18 14:00 91 18 100/42 (61) 99 09/25/18 13:00 102 20 92/45 (61) 99 09/25/18 12:58 105 109/64 09/25/18 12:00 Venturi Mask 14.0 09/25/18 12:00 98.6 100 17 102/43 (62) 99 09/25/18 12:00 98 09/25/18 11:06 100 18 100 Venturi Mask 8.0 40 09/25/18 11:00 106 18 101/35 (57) 99 09/25/18 10:55 99 16 100 Venturi Mask 8.0 40 09/25/18 10:00 102 20 91/49 (63) 99 09/25/18 09:00 104 20 96/48 (64) 99 Intake and Output 09/26/18 09/27/18 18:59 06:59 Intake Total 1767.958 ml 1605.0 ml Output Total 575 ml 500 ml Balance 1192.958 ml 1105.0 ml Intake Free Water 50 ml IV Total 1047.958 ml 915.0 ml Tube Feeding 540 ml 540 ml Other 180 ml 100 ml Output Urine Total 375 ml 300 ml Stool Total 200 ml 200 ml Labs Test 09/25/18 05:28 09/25/18 12:21 09/26/18 04:00 09/26/18 09:45 White Blood Count 9.8 K/UL (4.8-10.8) 11.7 K/UL (4.8-10.8) Red Blood Count 3.08 M/UL (4.70-6.10) 3.12 M/UL (4.70-6.10) Hemoglobin 9.2 G/DL (14.2-18.0) 9.4 G/DL (14.2-18.0) Hematocrit 30.2 % (42.0-52.0) 30.2 % (42.0-52.0) Mean Corpuscular Volume 98 FL (80-99) 97 FL (80-99) Mean Corpuscular Hemoglobin 29.9 PG (27.0-31.0) 30.0 PG (27.0-31.0) Mean Corpuscular Hemoglobin Concent 30.6 G/DL (32.0-36.0) 31.0 G/DL (32.0-36.0) Red Cell Distribution Width 14.8 % (11.6-14.8) 14.3 % (11.6-14.8) Platelet Count 193 K/UL (150-450) 184 K/UL (150-450) Mean Platelet Volume 5.8 FL (6.5-10.1) 6.0 FL (6.5-10.1) Neutrophils (%) (Auto) % (45.0-75.0) 81.5 % (45.0-75.0) Lymphocytes (%) (Auto) % (20.0-45.0) 12.9 % (20.0-45.0) Monocytes (%) (Auto) % (1.0-10.0) 4.5 % (1.0-10.0) Eosinophils (%) (Auto) % (0.0-3.0) 0.9 % (0.0-3.0) Basophils (%) (Auto) % (0.0-2.0) 0.2 % (0.0-2.0) Erythrocyte Sedimentation Rate 123 MM/HR (0-20) Prothrombin Time 11.6 SEC (9.30-11.50) Prothromb Time International Ratio 1.1 (0.9-1.1) Activated Partial Thromboplast Time 33 SEC (23-33) Sodium Level 150 MMOL/L (136-145) 150 MMOL/L (136-145) Potassium Level 4.8 MMOL/L (3.5-5.1) 4.3 MMOL/L (3.5-5.1) Chloride Level 117 MMOL/L (98-107) 115 MMOL/L (98-107) Carbon Dioxide Level 30 MMOL/L (21-32) 29 MMOL/L (21-32) Anion Gap 3 mmol/L (5-15) 6 mmol/L (5-15) Blood Urea Nitrogen 83 mg/dL (7-18) 74 mg/dL (7-18) Creatinine 1.8 MG/DL (0.55-1.30) 1.7 MG/DL (0.55-1.30) Estimat Glomerular Filtration Rate mL/min (>60) mL/min (>60) Glucose Level 140 MG/DL (74-106) 101 MG/DL (74-106) Calcium Level 8.8 MG/DL (8.5-10.1) 9.0 MG/DL (8.5-10.1) Total Bilirubin 0.6 MG/DL (0.2-1.0) 0.5 MG/DL (0.2-1.0) Aspartate Amino Transf (AST/SGOT) 38 U/L (15-37) 40 U/L (15-37) Alanine Aminotransferase (ALT/SGPT) 16 U/L (12-78) 16 U/L (12-78) Alkaline Phosphatase 281 U/L (46-116) 280 U/L (46-116) C-Reactive Protein, Quantitative 25.1 mg/dL (0.00-0.90) Total Protein 5.3 G/DL (6.4-8.2) 5.7 G/DL (6.4-8.2) Albumin 0.9 G/DL (3.4-5.0) 1.0 G/DL (3.4-5.0) Globulin 4.4 g/dL 4.7 g/dL Albumin/Globulin Ratio 0.2 (1.0-2.7) 0.2 (1.0-2.7) Amylase Level 36 U/L (25-115) Lipase 75 U/L (73-393) Arterial Blood pH 7.412 (7.350-7.450) Arterial Blood Partial Pressure CO2 47.2 mmHg (35.0-45.0) Arterial Blood Partial Pressure O2 93.6 mmHg (75.0-100.0) Arterial Blood HCO3 29.4 mmol/L (22.0-26.0) Arterial Blood Oxygen Saturation 96.5 % (95-100) Arterial Blood Base Excess 4.2 (-2-2) Juan Alberto Test Positive Phosphorus Level 4.1 MG/DL (2.5-4.9) Magnesium Level 2.3 MG/DL (1.8-2.4) Random Vancomycin Level 11.3 ug/mL Ammonia 28 umol/L (11-32) Test 09/27/18 03:40 White Blood Count 13.9 K/UL (4.8-10.8) Red Blood Count 3.19 M/UL (4.70-6.10) Hemoglobin 9.7 G/DL (14.2-18.0) Hematocrit 31.0 % (42.0-52.0) Mean Corpuscular Volume 97 FL (80-99) Mean Corpuscular Hemoglobin 30.3 PG (27.0-31.0) Mean Corpuscular Hemoglobin Concent 31.1 G/DL (32.0-36.0) Red Cell Distribution Width 14.3 % (11.6-14.8) Platelet Count 185 K/UL (150-450) Mean Platelet Volume 6.3 FL (6.5-10.1) Neutrophils (%) (Auto) 78.9 % (45.0-75.0) Lymphocytes (%) (Auto) 15.3 % (20.0-45.0) Monocytes (%) (Auto) 4.9 % (1.0-10.0) Eosinophils (%) (Auto) 0.7 % (0.0-3.0) Basophils (%) (Auto) 0.3 % (0.0-2.0) Sodium Level 146 MMOL/L (136-145) Potassium Level 4.8 MMOL/L (3.5-5.1) Chloride Level 112 MMOL/L (98-107) Carbon Dioxide Level 23 MMOL/L (21-32) Anion Gap 11 mmol/L (5-15) Blood Urea Nitrogen 73 mg/dL (7-18) Creatinine 1.9 MG/DL (0.55-1.30) Estimat Glomerular Filtration Rate mL/min (>60) Glucose Level 230 MG/DL (74-106) Calcium Level 8.8 MG/DL (8.5-10.1) Height (Feet): 5 Height (Inches): 8.00 Weight (Pounds): 189 Objective Gen: well appearing, no apparent distress, alert Head: normocephalic EENT: PERRL/EOMI, normal ENT inspection Pulm: normal breath sounds, no respiratory distress. NC+ CV: rrr. no mgr GI: normal inspection, non tender, soft, normal bowel sounds, non-distended ++ gtube Rectal: deferred Gu: johnston++ Msk: normal inspection, back normal Neurologic: normal inspection, alert, oriented x3, responsive Psychiatric: normal inspection, judgement/insight normal, memory normal Skin: normal inspection, normal color, no rash, warm/dry, palpation normal, well hydrated Fadi Vicente MD Sep 27, 2018 08:52
--- NOTE | 2018-09-27 10:21 | Infectious Diseases Prog Note ---
Assessment/Plan Assessment/Plan antibiotics : zosyn 7.23.19 - A 1. proteus UTI 2. pseudomonas pneumonia 3. diabetes mellitus 4. hypertension 5. liver mass 6. renal stone 7. renal failure P 1. d/c zosyn 2. start and continue cefepime 3 more days 3. will follow up cultures Subjective ROS Limited/Unobtainable: Yes Allergies: Coded Allergies: No Known Allergies (Verified , 06/07/08) Objective Vital Signs Last 24 Hour Vital Signs Date Time Temp Pulse Resp B/P (MAP) Pulse Ox O2 Delivery O2 Flow Rate FiO2 09/27/18 08:00 Venturi Mask 6.0 09/27/18 08:00 99 09/27/18 07:50 98.1 96 23 108/45 (66) 98 09/27/18 07:25 92 17 99 Venturi Mask 6.0 35 09/27/18 07:14 99 Venturi Mask 8.0 40 09/27/18 07:14 84 16 99 Venturi Mask 8.0 40 09/27/18 05:59 98 109/50 09/27/18 04:00 Venturi Mask 8.0 09/27/18 04:00 94 09/27/18 04:00 97.6 84 20 105/69 (81) 100 09/27/18 03:36 91 20 100 Venturi Mask 8.0 40 09/27/18 03:19 90 20 98 Venturi Mask 8.0 40 09/27/18 00:24 98 118/65 09/27/18 00:00 103 09/27/18 00:00 Venturi Mask 8.0 09/27/18 00:00 98.4 98 20 118/65 (82) 98 09/26/18 23:00 95 20 100 Venturi Mask 8.0 40 09/26/18 22:52 84 20 98 Venturi Mask 8.0 40 09/26/18 20:33 78 20 99 Venturi Mask 8.0 40 09/26/18 20:19 83 20 98 Venturi Mask 8.0 40 09/26/18 20:18 83 20 98 Venturi Mask 8.0 40 09/26/18 20:17 98 Venturi Mask 8.0 40 09/26/18 20:00 98.1 85 20 116/51 (72) 98 09/26/18 20:00 Venturi Mask 8.0 09/26/18 20:00 93 09/26/18 17:57 98 120/53 09/26/18 16:00 99.0 86 22 116/59 (78) 98 09/26/18 16:00 84 09/26/18 16:00 Venturi Mask 8.0 09/26/18 15:23 88 21 100 Venturi Mask 8.0 40 09/26/18 15:13 87 19 98 Venturi Mask 8.0 40 09/26/18 12:17 98 126/71 09/26/18 12:00 Venturi Mask 8.0 09/26/18 12:00 99.0 98 23 126/71 (89) 98 09/26/18 11:54 94 09/26/18 11:29 Venturi Mask 8.0 40 09/26/18 11:29 Venturi Mask 8.0 40 Height (Feet): 5 Height (Inches): 8.00 Weight (Pounds): 189 Respiratory/Chest: lungs clear Cardiovascular: normal rate, regular rhythm, no gallop/murmur Abdomen: soft, non tender, other - GT Extremities: no edema Laboratory Tests Test 09/27/18 03:40 White Blood Count 13.9 K/UL (4.8-10.8) H Red Blood Count 3.19 M/UL (4.70-6.10) L Hemoglobin 9.7 G/DL (14.2-18.0) L Hematocrit 31.0 % (42.0-52.0) L Mean Corpuscular Volume 97 FL (80-99) Mean Corpuscular Hemoglobin 30.3 PG (27.0-31.0) Mean Corpuscular Hemoglobin Concent 31.1 G/DL (32.0-36.0) L Red Cell Distribution Width 14.3 % (11.6-14.8) Platelet Count 185 K/UL (150-450) Mean Platelet Volume 6.3 FL (6.5-10.1) L Neutrophils (%) (Auto) 78.9 % (45.0-75.0) H Lymphocytes (%) (Auto) 15.3 % (20.0-45.0) L Monocytes (%) (Auto) 4.9 % (1.0-10.0) Eosinophils (%) (Auto) 0.7 % (0.0-3.0) Basophils (%) (Auto) 0.3 % (0.0-2.0) Sodium Level 146 MMOL/L (136-145) H Potassium Level 4.8 MMOL/L (3.5-5.1) Chloride Level 112 MMOL/L (98-107) H Carbon Dioxide Level 23 MMOL/L (21-32) Anion Gap 11 mmol/L (5-15) Blood Urea Nitrogen 73 mg/dL (7-18) H Creatinine 1.9 MG/DL (0.55-1.30) H Estimat Glomerular Filtration Rate mL/min (>60) Glucose Level 230 MG/DL (74-106) #H Calcium Level 8.8 MG/DL (8.5-10.1) Current Medications Medications (Trade) Dose Ordered Sig/Reagan Route PRN Reason Start Time Stop Time Status Last Admin Dose Admin Acetaminophen (Tylenol) 650 mg Q4H PRN GT Mild Pain/Temp > 100.5 09/25/18 19:30 10/09/18 19:29 Albuterol/ Ipratropium (Albuterol/ Ipratropium) 3 ml Q4HRT HHN 09/26/18 19:00 10/01/18 18:59 09/27/18 07:14 Artificial Tears (Akwa-Tears) 1 drop EVERY 12 HOURS BOTH EYES 09/25/18 21:00 10/15/18 20:59 09/27/18 08:00 Dextrose 1,000 ml @ 75 mls/hr [id number] IV 09/26/18 15:30 10/25/18 15:29 09/27/18 05:00 Dextrose (Dextrose 50%) 25 ml Q30M PRN IV Hypoglycemia 09/25/18 19:30 10/03/18 21:29 Dextrose (Dextrose 50%) 50 ml Q30M PRN IV Hypoglycemia 09/25/18 19:30 10/03/18 21:29 Docusate Sodium (Colace) 100 mg BID GT 09/26/18 09:00 10/04/18 08:59 09/27/18 08:00 Donepezil HCl (Aricept) 10 mg BEDTIME GT 09/25/18 21:00 10/04/18 20:59 09/26/18 21:23 Heparin Sodium (Porcine) (Heparin 5000 units/ml) 5,000 units EVERY 12 HOURS SUBQ 09/25/18 21:00 10/04/18 08:59 09/27/18 08:01 Insulin Aspart (NovoLOG) EVERY 6 HOURS SUBQ 09/26/18 00:00 10/10/18 06:59 09/27/18 06:01 Insulin Detemir (Levemir) 10 units DAILY SUBQ 09/26/18 09:00 10/24/18 08:59 09/27/18 08:02 Metoclopramide HCl (Reglan) 5 mg Q8H PRN IVP Nausea & Vomiting 09/25/18 19:30 10/25/18 19:29 Metoprolol Tartrate (Lopressor) 25 mg Q6HR ORAL 09/26/18 00:00 10/25/18 11:59 09/27/18 05:59 Mineral Oil (Mineral Oil) 30 ml DAILYPRN PRN GT Constipation 09/25/18 19:30 10/25/18 19:29 Piperacillin Sod/ Tazobactam Sod 3.375 gm/Sodium Chloride 110 ml @ 27.5 mls/hr Q8HR@0000,0800,1600 IVPB 09/26/18 00:00 09/29/18 07:59 09/27/18 08:00 Polyethylene Glycol (Miralax) 17 gm BEDTIME GT 09/25/18 21:00 10/06/18 20:59 09/26/18 21:23 Vitamin D (Vitamin D) 1,000 intlu TWICE A DAY GT 09/26/18 09:00 10/04/18 08:59 09/27/18 08:00 Zinc Oxide (Desitin) 1 applic EVERY 8 HOURS TOPIC 09/25/18 22:00 10/08/18 06:59 09/27/18 06:01 Clari Whitten MD Sep 27, 2018 10:21
--- NOTE | 2018-09-27 10:44 | GI Progress Note ---
Assessment/Plan Problems: (1) Anemia ICD Codes: D64.9 - Anemia, unspecified SNOMED: 383181736 (2) Liver mass ICD Codes: R16.0 - Hepatomegaly, not elsewhere classified SNOMED: 858484015 (3) Fecal impaction ICD Codes: K56.41 - Fecal impaction SNOMED: 22323019 (4) CVA (cerebral vascular accident) ICD Codes: I63.9 - CVA (cerebral vascular accident) SNOMED: 913544999 (5) G tube feedings ICD Codes: Z93.1 - Gastrostomy status SNOMED: 727285149, 663889915, 748421941 (6) Abdominal distension ICD Codes: R14.0 - Abdominal distension (gaseous) SNOMED: 61945400 (7) Constipation ICD Codes: K59.00 - Constipation, unspecified SNOMED: 80349919 Qualifiers: Qualified Codes: K59.00 - Constipation, unspecified Status: not improved, unchanged Status Narrative Discussed with Dr. Gonzales. Assessment/Plan Status post paracentesis yielding 5.5 L of fluid abdominal US reviewed >> liver mass. ascites GT change to bigger size, [id number]. No reported recurrent GT leak. GT site care per wound care recs >> zinc oxide paste daily G-tube feedings per RD Reglan low dose Monitor H&H, PRN transfusions Turn patient every 2 hours bowel regimen poor prognosis The patient was seen and examined at bedside and all new and available data was reviewed in the patients chart. I agree with the above findings, impression and plan. (Patient seen earlier today. Signature stamp does not reflect patient encounter time.). - Demetris Gonzales MD Subjective Subjective Limited Objective Last 24 Hour Vital Signs Date Time Temp Pulse Resp B/P (MAP) Pulse Ox O2 Delivery O2 Flow Rate FiO2 09/27/18 08:00 Venturi Mask 6.0 09/27/18 08:00 99 09/27/18 07:50 98.1 96 23 108/45 (66) 98 09/27/18 07:25 92 17 99 Venturi Mask 6.0 35 09/27/18 07:14 99 Venturi Mask 8.0 40 09/27/18 07:14 84 16 99 Venturi Mask 8.0 40 09/27/18 05:59 98 109/50 09/27/18 04:00 Venturi Mask 8.0 09/27/18 04:00 94 09/27/18 04:00 97.6 84 20 105/69 (81) 100 09/27/18 03:36 91 20 100 Venturi Mask 8.0 40 09/27/18 03:19 90 20 98 Venturi Mask 8.0 40 09/27/18 00:24 98 118/65 09/27/18 00:00 103 09/27/18 00:00 Venturi Mask 8.0 09/27/18 00:00 98.4 98 20 118/65 (82) 98 09/26/18 23:00 95 20 100 Venturi Mask 8.0 40 09/26/18 22:52 84 20 98 Venturi Mask 8.0 40 09/26/18 20:33 78 20 99 Venturi Mask 8.0 40 09/26/18 20:19 83 20 98 Venturi Mask 8.0 40 09/26/18 20:18 83 20 98 Venturi Mask 8.0 40 09/26/18 20:17 98 Venturi Mask 8.0 40 09/26/18 20:00 98.1 85 20 116/51 (72) 98 09/26/18 20:00 Venturi Mask 8.0 09/26/18 20:00 93 09/26/18 17:57 98 120/53 09/26/18 16:00 99.0 86 22 116/59 (78) 98 09/26/18 16:00 84 09/26/18 16:00 Venturi Mask 8.0 09/26/18 15:23 88 21 100 Venturi Mask 8.0 40 09/26/18 15:13 87 19 98 Venturi Mask 8.0 40 09/26/18 12:17 98 126/71 09/26/18 12:00 Venturi Mask 8.0 09/26/18 12:00 99.0 98 23 126/71 (89) 98 09/26/18 11:54 94 09/26/18 11:29 Venturi Mask 8.0 40 09/26/18 11:29 Venturi Mask 8.0 40 Intake and Output 09/26/18 09/27/18 19:00 07:00 Intake Total 1820.458 ml 1577.5 ml Output Total 575 ml 500 ml Balance 1245.458 ml 1077.5 ml Intake Free Water 50 ml IV Total 1100.458 ml 887.5 ml Tube Feeding 540 ml 540 ml Other 180 ml 100 ml Output Urine Total 375 ml 300 ml Stool Total 200 ml 200 ml Laboratory Tests Test 09/27/18 03:40 White Blood Count 13.9 K/UL (4.8-10.8) H Red Blood Count 3.19 M/UL (4.70-6.10) L Hemoglobin 9.7 G/DL (14.2-18.0) L Hematocrit 31.0 % (42.0-52.0) L Mean Corpuscular Volume 97 FL (80-99) Mean Corpuscular Hemoglobin 30.3 PG (27.0-31.0) Mean Corpuscular Hemoglobin Concent 31.1 G/DL (32.0-36.0) L Red Cell Distribution Width 14.3 % (11.6-14.8) Platelet Count 185 K/UL (150-450) Mean Platelet Volume 6.3 FL (6.5-10.1) L Neutrophils (%) (Auto) 78.9 % (45.0-75.0) H Lymphocytes (%) (Auto) 15.3 % (20.0-45.0) L Monocytes (%) (Auto) 4.9 % (1.0-10.0) Eosinophils (%) (Auto) 0.7 % (0.0-3.0) Basophils (%) (Auto) 0.3 % (0.0-2.0) Sodium Level 146 MMOL/L (136-145) H Potassium Level 4.8 MMOL/L (3.5-5.1) Chloride Level 112 MMOL/L (98-107) H Carbon Dioxide Level 23 MMOL/L (21-32) Anion Gap 11 mmol/L (5-15) Blood Urea Nitrogen 73 mg/dL (7-18) H Creatinine 1.9 MG/DL (0.55-1.30) H Estimat Glomerular Filtration Rate mL/min (>60) Glucose Level 230 MG/DL (74-106) #H Calcium Level 8.8 MG/DL (8.5-10.1) Height (Feet): 5 Height (Inches): 8.00 Weight (Pounds): 189 General Appearance: no apparent distress Cardiovascular: normal rate Respiratory/Chest: normal breath sounds, no respiratory distress Abdominal Exam: normal bowel sounds, non tender, soft, ascites, GT site - see wound care Extremities: non-tender Michelle Samuel NP Sep 27, 2018 10:44
--- NOTE | 2018-09-27 11:03 | NUR ---
[employer] SI: RESP FAILURE T. 98.1 HR 96 RR 23 B/P 108/45 VM 35% WBC 13.9 NA 146 BUN 73 CR 1.3 IS: CEFEPIME IV IVF D5@ 75ML/HR ALB HHN [facility] SUBC HOSPICE PLACEMENT STEP DOWN STATUS
[2018-09-27 12:00] VITALS: BP 104/37
[2018-09-27] MEDS ORDERED: Cefepime HCl 1 GM in D5W 55 ML IVPB SCH (12:00)
--- NOTE | 2018-09-27 12:02 | NUR ---
RD ASSESSMENT & RECOMMENDATIONS SEE CARE ACTIVITY FOR COMPLETE ASSESSMENT DAILY ESTIMATED NEEDS: Needs based on DM, wound/ 65.5kg 25-30 kcals/kg 5994-2710 total kcals 1.25-2 g protein/kg 81-131 g total protein 25-30 mL/kg 7497-7127 total fluid mLs NUTRITION DIAGNOSIS: 1) Altered GI fxn r/t SBO and fecal impaction as evidenced by pt w/ elev tube feeding residuals, now off GT to LIS, w/ continued varied tolerance, on reglan. 2) Swallowing difficulty R/T dysphagia as evidenced by pt w/ GT, on GT feeding + oral diet on pureed SAFETY PHYSICIAN, currently w/ an order for TF only. 3) Increased kcal/prot/micronutrients needs R/T wound healing as evidenced by evolving DTPI sacrum, non-blanchable erythema with fluctuance L heel, non-blanchable erythema without fluctuance R heel. (CURRENT TF:GLUCERNA 1.5 @ 45ML/HR X 24 HRS) ENTERAL NUTRITION RECOMMENDATIONS: GLUCERNA 1.5 @ 45ML/HR X 24 HRS + Prosource x1 to provide 1080ml, 1660kcal, 100g prot, 820ml free water * Maintain current rate of 45ml/hr x 24 hrs * Add prosource 1 pack daily to meet 100% est kcal/prot needs * HOB >30 degrees, H2O flushes per MD WITH CONSISTENTLY ELEV K: REC TF CHANGE TO NEPRO @ 38ML/HR X 24 HRS + PROSOURCE 1PKT QD to provide 912ml, 1642ml free water, 85g prot ADDITIONAL RECOMMENDATIONS: 1) Rec to UPDATE WT POST TXR -> RECALIBRATE BED SCALE 2) Consider TEAM DRIVER eval for oral diet -> Pt on pureed texture diet SAFETY PHYSICIAN 3) Monitor TF tolerance: distended abdomen w/ h/o residuals 4) Wound healing: add Vit C 250mg BID, Jarocho 1pkt BID 5) Monitor K (5.3-> 4.8), need for TF change to Nepro
--- NOTE | 2018-09-27 12:05 | NUR ---
Social Service Note AN spoke with Donna at [facility] and patient has been accepted for placement. Room assignment to be provided once O2 and bed delivered by hospice. AN left a message for Miguelina at [facility] [phone]. AN spoke with camryn Cairo [phone] regarding impending dc planning and location of discharge. Dgt in agreement with discharge. Will continue to monitor and follow up. Addendum: 09/27/18 at 1229 by MIRI ZULETA Accepted to room 102B. Addendum: 09/27/18 at 1230 by MIRI ZULETA Ambulance placed on will-call with [facility] [phone]
--- NOTE | 2018-09-27 12:24 | Surgery Progress Note ---
Surgery Progress Note Subjective Additional Comments Worsening renal function. Worsening leukocytosis. Electrolytes abnormal. Examination overall unchanged but still has a fluid-filled abdomen with recurrent ascites Overall prognosis poor Objective Last 24 Hour Vital Signs Date Time Temp Pulse Resp B/P (MAP) Pulse Ox O2 Delivery O2 Flow Rate FiO2 09/27/18 10:58 89 19 99 Venturi Mask 4.0 30 09/27/18 10:48 89 17 98 Venturi Mask 6.0 35 09/27/18 08:00 Venturi Mask 6.0 09/27/18 08:00 99 09/27/18 07:50 98.1 96 23 108/45 (66) 98 09/27/18 07:25 92 17 99 Venturi Mask 6.0 35 09/27/18 07:14 99 Venturi Mask 8.0 40 09/27/18 07:14 84 16 99 Venturi Mask 8.0 40 09/27/18 05:59 98 109/50 09/27/18 04:00 Venturi Mask 8.0 09/27/18 04:00 94 09/27/18 04:00 97.6 84 20 105/69 (81) 100 09/27/18 03:36 91 20 100 Venturi Mask 8.0 40 09/27/18 03:19 90 20 98 Venturi Mask 8.0 40 09/27/18 00:24 98 118/65 09/27/18 00:00 103 09/27/18 00:00 Venturi Mask 8.0 09/27/18 00:00 98.4 98 20 118/65 (82) 98 09/26/18 23:00 95 20 100 Venturi Mask 8.0 40 09/26/18 22:52 84 20 98 Venturi Mask 8.0 40 09/26/18 20:33 78 20 99 Venturi Mask 8.0 40 09/26/18 20:19 83 20 98 Venturi Mask 8.0 40 09/26/18 20:18 83 20 98 Venturi Mask 8.0 40 09/26/18 20:17 98 Venturi Mask 8.0 40 09/26/18 20:00 98.1 85 20 116/51 (72) 98 09/26/18 20:00 Venturi Mask 8.0 09/26/18 20:00 93 09/26/18 17:57 98 120/53 09/26/18 16:00 99.0 86 22 116/59 (78) 98 09/26/18 16:00 84 09/26/18 16:00 Venturi Mask 8.0 09/26/18 15:23 88 21 100 Venturi Mask 8.0 40 09/26/18 15:13 87 19 98 Venturi Mask 8.0 40 I&O Intake and Output 09/26/18 09/27/18 19:00 07:00 Intake Total 1820.458 ml 1577.5 ml Output Total 575 ml 500 ml Balance 1245.458 ml 1077.5 ml Intake Free Water 50 ml IV Total 1100.458 ml 887.5 ml Tube Feeding 540 ml 540 ml Other 180 ml 100 ml Output Urine Total 375 ml 300 ml Stool Total 200 ml 200 ml Cardiovascular: RSR Respiratory: decreased breath sounds Abdomen: soft, distended, present bowel sounds Extremities: no cyanosis Laboratory Tests Test 09/27/18 03:40 White Blood Count 13.9 K/UL (4.8-10.8) H Red Blood Count 3.19 M/UL (4.70-6.10) L Hemoglobin 9.7 G/DL (14.2-18.0) L Hematocrit 31.0 % (42.0-52.0) L Mean Corpuscular Volume 97 FL (80-99) Mean Corpuscular Hemoglobin 30.3 PG (27.0-31.0) Mean Corpuscular Hemoglobin Concent 31.1 G/DL (32.0-36.0) L Red Cell Distribution Width 14.3 % (11.6-14.8) Platelet Count 185 K/UL (150-450) Mean Platelet Volume 6.3 FL (6.5-10.1) L Neutrophils (%) (Auto) 78.9 % (45.0-75.0) H Lymphocytes (%) (Auto) 15.3 % (20.0-45.0) L Monocytes (%) (Auto) 4.9 % (1.0-10.0) Eosinophils (%) (Auto) 0.7 % (0.0-3.0) Basophils (%) (Auto) 0.3 % (0.0-2.0) Sodium Level 146 MMOL/L (136-145) H Potassium Level 4.8 MMOL/L (3.5-5.1) Chloride Level 112 MMOL/L (98-107) H Carbon Dioxide Level 23 MMOL/L (21-32) Anion Gap 11 mmol/L (5-15) Blood Urea Nitrogen 73 mg/dL (7-18) H Creatinine 1.9 MG/DL (0.55-1.30) H Estimat Glomerular Filtration Rate mL/min (>60) Glucose Level 230 MG/DL (74-106) #H Calcium Level 8.8 MG/DL (8.5-10.1) Plan Problems: (1) Abdominal distension Assessment & Plan: improved tolerating diet exam unchanged with fluid but no sbo possible declining liver function with declining real function abdomen becoming distended again likely fluid filled repeat US noted may need another tap (2) Malnutrition Assessment & Plan: Evolving DTPI sacrum. Base of wound has 100% soft necrosis ( L)2.5cm x (W)3.2cm with surrounding non-blanchable erythema with induration noted. (L)6.5cm x(W)8cm. Erythema noted to scrotum . Non-blanchable erythema with fluctuance L heel. Non-blanchable erythema without fluctuance R heel. G site erythematous with denuded skin. Surrounding adhesive related skin tears noted to surrounding skin with small amt sanguineous exudate.Area gentlyu cleansed with soap and water .Pat dried. Zinc Oxide paste applied to GT site and surrounding skin damage . 4 x $ drain gauze appied around Gt site without tape. Recommended to primary nurse to avoid taping gauze around Gt . Tx.Plan: Cleanse Sacral wound with Saline. Apply Therahoney. Apply Moisture Barrier Periwound. Cover with Optifoam drsg. Change every 3 days and prn. Apply Moisture Barrier Paste to Bilat groin and scrotum with each incontinence care. Gently cleanse GT site with Soap and water. Pat dry. Apply Zinc Oxide paste daily and prn.Place 4x4 gauze around GT. Do Not Tape Gauze. Apply Cavilon Skin Barrier to both heels. Cover each heel with Optifoam drsg. Change every 7 days and prn. APM/WIL Mattress. Reposition at least every 2hours or as tolerated. Off-load heels with pillow. Jesse Cash Sep 27, 2018 12:24
--- NOTE | 2018-09-27 14:29 | General Progress Note ---
Assessment/Plan Problem List: (1) Atrial fibrillation and flutter ICD Codes: I48.91 - Unspecified atrial fibrillation; I48.92 - Unspecified atrial flutter SNOMED: 445569754 (2) CHF (congestive heart failure) ICD Codes: I50.9 - Heart failure, unspecified SNOMED: 22247702 (3) Pancreatitis ICD Codes: K85.90 - Acute pancreatitis without necrosis or infection, unspecified SNOMED: 02509080 (4) CVA (cerebral vascular accident) ICD Codes: I63.9 - CVA (cerebral vascular accident) SNOMED: 560829467 (5) Abdominal distension ICD Codes: R14.0 - Abdominal distension (gaseous) SNOMED: 47279443 (6) Umbilical hernia ICD Codes: K42.9 - Umbilical hernia without obstruction or gangrene SNOMED: 095764189 Qualifiers: Qualified Codes: K42.9 - Umbilical hernia without obstruction or gangrene Status: not improved, unchanged Assessment/Plan: liver mass abdominal distention episodic hypertension and tachycardia abdominal distention, slightly improved urinary retention ascites s/p tap fever acute on chronic renal failure fever possible sepsis shock PLAN hospice care dc to snf today terminal care planned medications/laboratory data/nursing notes reviewed in detail note reviewed and edited care discussed with RN and RT Subjective Allergies: Coded Allergies: No Known Allergies (Verified , 06/07/08) Subjective signed up with hospice overall same d/w egg caser Objective Last 24 Hour Vital Signs Date Time Temp Pulse Resp B/P (MAP) Pulse Ox O2 Delivery O2 Flow Rate FiO2 09/27/18 12:36 100 104/37 09/27/18 12:00 98.2 100 21 104/37 (59) 97 09/27/18 12:00 98 09/27/18 12:00 Venturi Mask 4.0 09/27/18 10:58 89 19 99 Venturi Mask 4.0 30 09/27/18 10:48 89 17 98 Venturi Mask 6.0 35 09/27/18 08:00 Venturi Mask 6.0 09/27/18 08:00 99 09/27/18 07:50 98.1 96 23 108/45 (66) 98 09/27/18 07:25 92 17 99 Venturi Mask 6.0 35 09/27/18 07:14 99 Venturi Mask 8.0 40 09/27/18 07:14 84 16 99 Venturi Mask 8.0 40 09/27/18 05:59 98 109/50 09/27/18 04:00 Venturi Mask 8.0 09/27/18 04:00 94 09/27/18 04:00 97.6 84 20 105/69 (81) 100 09/27/18 03:36 91 20 100 Venturi Mask 8.0 40 09/27/18 03:19 90 20 98 Venturi Mask 8.0 40 09/27/18 00:24 98 118/65 09/27/18 00:00 103 09/27/18 00:00 Venturi Mask 8.0 09/27/18 00:00 98.4 98 20 118/65 (82) 98 09/26/18 23:00 95 20 100 Venturi Mask 8.0 40 09/26/18 22:52 84 20 98 Venturi Mask 8.0 40 09/26/18 20:33 78 20 99 Venturi Mask 8.0 40 09/26/18 20:19 83 20 98 Venturi Mask 8.0 40 09/26/18 20:18 83 20 98 Venturi Mask 8.0 40 09/26/18 20:17 98 Venturi Mask 8.0 40 09/26/18 20:00 98.1 85 20 116/51 (72) 98 09/26/18 20:00 Venturi Mask 8.0 09/26/18 20:00 93 09/26/18 17:57 98 120/53 09/26/18 16:00 99.0 86 22 116/59 (78) 98 09/26/18 16:00 84 09/26/18 16:00 Venturi Mask 8.0 09/26/18 15:23 88 21 100 Venturi Mask 8.0 40 09/26/18 15:13 87 19 98 Venturi Mask 8.0 40 Intake and Output 09/26/18 09/27/18 19:00 07:00 Intake Total 1820.458 ml 1577.5 ml Output Total 575 ml 500 ml Balance 1245.458 ml 1077.5 ml Intake Free Water 50 ml IV Total 1100.458 ml 887.5 ml Tube Feeding 540 ml 540 ml Other 180 ml 100 ml Output Urine Total 375 ml 300 ml Stool Total 200 ml 200 ml Laboratory Tests 7/26/19 03:40: White Blood Count 13.9H, Red Blood Count 3.19L, Hemoglobin 9.7L, Hematocrit 31.0L, Mean Corpuscular Volume 97, Mean Corpuscular Hemoglobin 30.3, Mean Corpuscular Hemoglobin Concent 31.1L, Red Cell Distribution Width 14.3, Platelet Count 185, Mean Platelet Volume 6.3L, Neutrophils (%) (Auto) 78.9H, Lymphocytes (%) (Auto) 15.3L, Monocytes (%) (Auto) 4.9, Eosinophils (%) (Auto) 0.7, Basophils (%) (Auto) 0.3, Sodium Level 146H, Potassium Level 4.8, Chloride Level 112H, Carbon Dioxide Level 23, Anion Gap 11, Blood Urea Nitrogen 73H, Creatinine 1.9H, Estimat Glomerular Filtration Rate , Glucose Level 230#H, Calcium Level 8.8 Height (Feet): 5 Height (Inches): 8.00 Weight (Pounds): 189 Objective WDWN acutely ill reduced breath sounds bilaterally with some rhonchi [id number] without MRG NABS;Gt in place; no CC; noted edema nonfocal skin exam noted withdrawn reviewed and examined Dustin Mary MD Sep 27, 2018 14:29
--- NOTE | 2018-09-27 14:46 | Nephrology Progress Note ---
Assessment/Plan Plan Sepsis Hypernatremia Na 146. - on free H2O. MARIXA on IVF Subjective Subjective In JV. Objective Objective Last 24 Hour Vital Signs Date Time Temp Pulse Resp B/P (MAP) Pulse Ox O2 Delivery O2 Flow Rate FiO2 09/27/18 12:36 100 104/37 09/27/18 12:00 98.2 100 21 104/37 (59) 97 09/27/18 12:00 98 09/27/18 12:00 Venturi Mask 4.0 09/27/18 10:58 89 19 99 Venturi Mask 4.0 30 09/27/18 10:48 89 17 98 Venturi Mask 6.0 35 09/27/18 08:00 Venturi Mask 6.0 09/27/18 08:00 99 09/27/18 07:50 98.1 96 23 108/45 (66) 98 09/27/18 07:25 92 17 99 Venturi Mask 6.0 35 09/27/18 07:14 99 Venturi Mask 8.0 40 09/27/18 07:14 84 16 99 Venturi Mask 8.0 40 09/27/18 05:59 98 109/50 09/27/18 04:00 Venturi Mask 8.0 09/27/18 04:00 94 09/27/18 04:00 97.6 84 20 105/69 (81) 100 09/27/18 03:36 91 20 100 Venturi Mask 8.0 40 09/27/18 03:19 90 20 98 Venturi Mask 8.0 40 09/27/18 00:24 98 118/65 09/27/18 00:00 103 09/27/18 00:00 Venturi Mask 8.0 09/27/18 00:00 98.4 98 20 118/65 (82) 98 09/26/18 23:00 95 20 100 Venturi Mask 8.0 40 09/26/18 22:52 84 20 98 Venturi Mask 8.0 40 09/26/18 20:33 78 20 99 Venturi Mask 8.0 40 09/26/18 20:19 83 20 98 Venturi Mask 8.0 40 09/26/18 20:18 83 20 98 Venturi Mask 8.0 40 09/26/18 20:17 98 Venturi Mask 8.0 40 09/26/18 20:00 98.1 85 20 116/51 (72) 98 09/26/18 20:00 Venturi Mask 8.0 09/26/18 20:00 93 09/26/18 17:57 98 120/53 09/26/18 16:00 99.0 86 22 116/59 (78) 98 09/26/18 16:00 84 09/26/18 16:00 Venturi Mask 8.0 09/26/18 15:23 88 21 100 Venturi Mask 8.0 40 09/26/18 15:13 87 19 98 Venturi Mask 8.0 40 Intake and Output 09/26/18 09/27/18 19:00 07:00 Intake Total 1820.458 ml 1577.5 ml Output Total 575 ml 500 ml Balance 1245.458 ml 1077.5 ml Intake Free Water 50 ml IV Total 1100.458 ml 887.5 ml Tube Feeding 540 ml 540 ml Other 180 ml 100 ml Output Urine Total 375 ml 300 ml Stool Total 200 ml 200 ml Laboratory Tests 09/27/18 03:40: White Blood Count 13.9H, Red Blood Count 3.19L, Hemoglobin 9.7L, Hematocrit 31.0L, Mean Corpuscular Volume 97, Mean Corpuscular Hemoglobin 30.3, Mean Corpuscular Hemoglobin Concent 31.1L, Red Cell Distribution Width 14.3, Platelet Count 185, Mean Platelet Volume 6.3L, Neutrophils (%) (Auto) 78.9H, Lymphocytes (%) (Auto) 15.3L, Monocytes (%) (Auto) 4.9, Eosinophils (%) (Auto) 0.7, Basophils (%) (Auto) 0.3, Sodium Level 146H, Potassium Level 4.8, Chloride Level 112H, Carbon Dioxide Level 23, Anion Gap 11, Blood Urea Nitrogen 73H, Creatinine 1.9H, Estimat Glomerular Filtration Rate , Glucose Level 230#H, Calcium Level 8.8 Height (Feet): 5 Height (Inches): 8.00 Weight (Pounds): 189 Objective Confused. NAD CV RR Lungs B ronchi Abd. SNT. BS + E No CCE Ifrah Gorman MD Sep 27, 2018 14:46
--- NOTE | 2018-09-27 14:47 | NUR ---
NURSE NOTES: Spoke with Dr. Mary regarding discharge medications. Dr. Mary stated that all he needs is oxygen so D/C all other meds. Order carried out.
--- NOTE | 2018-09-27 15:00 | NUR ---
Social Service Note Pick arranged at 1600, primary nurse aware. Call report to [phone].
--- NOTE | 2018-09-27 15:01 | NUR ---
NURSE NOTES: Report given to ISMAEL Killian from [facility].
[2018-09-27 15:55] VITALS: BP 114/48
[2018-09-27 17:46] VITALS: BP 114/48
[2018-09-27] MEDS ORDERED: 1/2 NS 1000ml IV ONE (18:14)
[2018-09-27] MEDS ORDERED: NS 275ml ONE (18:14)
--- NOTE | 2018-09-27 18:16 | NUR ---
NURSE NOTES: Patient discharged to [facility] with hospice accompanied with ambulance personnel. Pt. is oriented x 1 by his name. Open eyes only but not verbally responsive. On 4L of oxygen via venturi mask with no distress noted. Report given to ISMAEL Killian from [facility]. F/C and rectal tube removed per nurse's request. radiation monitor, IV site, and ID band removed prior to discharge. Skin assessment done with wound photo uploaded. No belongings noted. Vitals are stable. Stable condition.
--- NOTE | 2018-09-27 23:45 | Progress Note ---
DATE: 09/27/2018 CARDIOLOGY PROGRESS NOTE SUBJECTIVE: The patient's condition has stabilized, however, prognosis remains poor due to multiple medical problems. He is being discharged to a assisted facility with hospice care plan to be pursued. The patient is presently without shortness of breath or chest pain. OBJECTIVE: VITAL SIGNS: Blood pressure 104/37, , respirations 21, afebrile. LUNGS: Diminished breath sounds. No rales. No wheezes. HEART: Irregularly irregular rhythm. Normal S1 and paradoxically split S2 with a 1/6 holosystolic murmur. ABDOMEN: Soft, distended with positive G-tube and mild ascites. EXTREMITIES: Trace dependent edema. LABORATORY DATA: White count 13.9, hemoglobin 9.7. Sodium 146, potassium 4.8, bicarb 23, BUN 73, creatinine 1.9. IMPRESSION: 1. Dehydration, hypernatremia, improving. 2. , improving. 3. Acute on chronic renal failure. 4. Worsening paroxysmal atrial fibrillation, rate controlled. 5. Permanent pacemaker with stable function. 6. Acute on chronic diastolic and systolic congestive heart failure, clinically compensated. 7. Chronic liver mass. 8. Ascites. 9. Severe protein-calorie malnutrition. PLAN: 1. Free water per feeding tube. 2. Nutritional support by feeding tube. No diuretic therapy. 3. Maintain beta-jaison. 4. Hospice care plan. 5. Outpatient followup regarding pacemaker to depend on performance status. Marcellus Richards M.D. DR: JOHN JOB#: [id number] CC:
--- NOTE | 2018-09-29 14:10 | Discharge Summary ---
Discharge Summary Discharge Summary _ DATE OF ADMISSION: 09/03/2018 DATE OF DISCHARGE: 09/27/2018 DISCHARGED BY: Dr. Rosana Mary CONSULTANTS: Dr. Marcellus Perez BRIEF HOSPITAL COURSE: Patient is an 78-year-old male who is nonverbal from senior care, was taken to ED for evaluation of abdominal distention. He was unable to give history. He has medical history significant for dysphagia status post previous G-tube and previous G-tube cellulitis with Pseudomonas Klebsiella and streptococci. 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 On evaluation at the ED, vital signs were stable. Blood work did not show any leukocytosis. Hemoglobin and hematocrit were stable. Electrolytes were normal. Troponin negative. EKG showed sinus without any evidence of injury. CT of the abdomen showed fat-containing hernia with some stranding. Large stool possible fecal impaction. He was then admitted for evaluation of abdominal distention, umbilical hernia and constipation. Surgeon was consulted. On assessment, patient did not require any surgery. He was recommended bowel regimen for fecal impaction. GI was consulted. He was given aggressive bowel regimen. He eventually had a large BM. Anemia CT showed large heterogenous mass in the right lobe of the liver suspicious for malignant neoplasm. Family deferred further work-up. Liver biopsy was canceled. A new G-tube was replaced at bedside by GI on 09/08/2018. He was started on G- tube feeding. KUB did not show any acute process. On 09/09/2018, he was noted to have high heart rate and respiratory rate. TOBACCO DRIER OPERATOR was called. He was transferred to [facility] for new onset A. fib. He was noted to have high G-tube residual. G-tube was placed on suction and tube feeding was temporarily placed on hold. He was given Reglan. He was given potassium supplements. Calcium was elevated, likely due to dehydration. Calcium improved with IV hydration. Urologist was consulted for urinary retention and inability to pass Schmid catheter. Staff attempted to insert a Schmid catheter, however had difficulty. Urologist examination revealed penoscrotal edema and phimosis. Specialist was able to insert Schmid catheter successfully but with difficulty. He had abdominal distention. Ultrasound showed ascites. On 09/16/2018, he underwent ultrasound-guided paracentesis yielding 5.5 L of fluid. He had worsening BUN and creatinine. Renal ultrasound was negative for hydronephrosis, and showed both kidneys with normal echogenicity. On 09/21/2018 patient deteriorated with hypotension and tachycardia, he was transferred to ICU. He was placed on Venturi mask. Patient presented with multiorgan failure. He was given fluid bolus. Consideration for possible septic shock. ID was consulted. He was given IV vancomycin and Zosyn for possible aspiration pneumonia. He had episodes of rapid A. fib. He was given beta-blockers. There was reported G-tube leak. G-tube was changed to a bigger size. A new 24 Naur[place] tube was inserted at bedside on 09/25/2018. He was given G-tube site care. Urine culture showed growth of proteus. Sputum culture with Pseudomonas. Vancomycin was discontinued. He was continued on Zosyn. He had worsening renal function and worsening leukocytosis. He had overall poor prognosis. He had recurrent ascites. Terminal care planned. Patient was discharged to SNF. For hospice care. FINAL DIAGNOSES: Possible sepsis Shock Proteus UTI Pseudomonas pneumonia Ascites status post paracentesis Urinary retention Acute kidney injury Atrial fibrillation flutter Umbilical hernia Hypernatremia Liver mass Fecal impaction, resolved G-tube leak, status post G-tube replacement Diabetes mellitus Hypertension Anemia of chronic disease Hypercalcemia Severe protein calorie malnutrition Acute on chronic diastolic and systolic congestive heart failure, clinically compensated Permanent pacemaker with stable function Hospice care/terminal care DISPOSITION: Patient was discharged to a SNF. I have been assigned to complete a discharge summary on this account, I was not involved with the patient's management.--JAMESON Bales Jacqueline Robles NP Sep 29, 2018 14:10
== END 2018-09-27 18:15 | disposition hospice, inpatient (51) | DRG 393 ==
LOC: EDBD 14:14 → EMR 14:25 → 4E 15:12 → EDBEDREQ 18:51 → 4E 20:20 → 2W 09-09 21:08 → 4E 09-19 16:22 → ICU 09-24 06:30 → 2W 09-25 19:02
PROC: 0W9G3ZZ Drainage of Peritoneal Cavity, Percutaneous Approach (ICD-10-PCS; principal; 2018-09-16)
DX: K42.0 Umbilical hernia with obstruction, without gangrene (principal); I50.43 Acute on chronic combined systolic (congestive) and diastolic (congestive) heart failure; A41.9 Sepsis, unspecified organism; R65.21 Severe sepsis with septic shock; E43 Unspecified severe protein-calorie malnutrition; J15.1 Pneumonia due to Pseudomonas; I13.0 Hypertensive heart and chronic kidney disease with heart failure and stage 1 through stage 4 chronic kidney disease, or unspecified chronic kidney disease; R18.8 Other ascites; N39.0 Urinary tract infection, site not specified; N17.9 Acute kidney failure, unspecified; E87.0 Hyperosmolality and hypernatremia; I48.92 Unspecified atrial flutter; K56.41 Fecal impaction; Z93.1 Gastrostomy status; R13.10 Dysphagia, unspecified; G30.9 Alzheimer's disease, unspecified; F02.80 Dementia in other diseases classified elsewhere, unspecified severity, without behavioral disturbance, psychotic disturbance, mood disturbance, and anxiety; N18.9 Chronic kidney disease, unspecified; E11.22 Type 2 diabetes mellitus with diabetic chronic kidney disease; Z95.0 Presence of cardiac pacemaker; I49.5 Sick sinus syndrome; E11.21 Type 2 diabetes mellitus with diabetic nephropathy; E11.40 Type 2 diabetes mellitus with diabetic neuropathy, unspecified; N40.1 Benign prostatic hyperplasia with lower urinary tract symptoms; R33.8 Other retention of urine; D64.9 Anemia, unspecified; E86.0 Dehydration; N50.89 Other specified disorders of the male genital organs; N47.1 Phimosis; R16.0 Hepatomegaly, not elsewhere classified; Z51.5 Encounter for palliative care; Z66 Do not resuscitate; B96.4 Proteus (mirabilis) (morganii) as the cause of diseases classified elsewhere; E83.52 Hypercalcemia; E87.5 Hyperkalemia; Z68.28 Body mass index [BMI] 28.0-28.9, adult
CPT/HCPCS: 36415; 36600; 71045; 74018; 74177; 76700; 76770; 76942; 80048; 80053; 80202; 81003; 82105; 82140; 82150; 82378; 82550; 82728; 82803; 82962; 83540; 83550; 83690; 83735; 84100; 84484; 85007; 85025; 85610; 85651; 85730; 86140; 86703; 86705; 86709; 86803; 86850; 86900; 86901; 87040; 87070; 87081; 87086; 87181; 87205; 87340; 89051; 93005; 94640; 94664; 96360; 96361; 99285; C9399; J1815; J7620; J8499; S5561